=== PATIENT | female | born 1985 | race Caucasian/White ===

== ENCOUNTER 2022-08-26 18:58 | Emergency (ER) | payer BC ==
--- OUTSIDE RECORDS SUMMARY | 2022-08-26 19:03 | XMS REPORT | Continuity of Care Document ---
:1985 Author Organization Formerly [facility] t Address [address] [place] [address] Care Team Providers Name Role Phone PCP, PATIENT DOES NOT HAVE A Primary Care Physician UnavailMOY Garcia Attending Clinician Unavailable MOY SAVAEG Attending Clinician Unavailable TRE HINOJOSA Attending Clinician Unavailable Tre Davis Attending Clinician Doctor Unassigned, [place] Attending Clinician Unavailable Payers Payer Name Policy Type Policy Number Effective Date Ex[facility] Date [id number] 00:00:00 OUT OF STATE Problems Condition Condition Condition Status Onset Resolution Last Treating Co mments Source Name Details Category Date Date Treatment Clinician Date Acute Acute Disease Active Univers postoperat postoperat 7-03 it y of carina carina 00:00: [place] abdominal abdominal 00 Medi yusef pain pain Branch Migraines Migraines Disease Active Uni vers 2-21 ity of 00:00: [place] 00 Medical Branch Tobacco Tobacco Disease Active Univers use use 2-21 ity of disorder disorder 00:00: [place] [facility] Allergies, Adverse Reactions, Alerts Allergy Allergy Status Severity Reaction(s) Onset Inactive Treating Comm ents Source Name Type Date Date Clinician Penicill Propensi Active Itching Unive rs ins ty to 2-21 ity of adverse 00:00: [place] reaction 00 Medical s Branch PENICILL Drug Active ITCHING Univers INS Class 2-21 ity of 00:00: [place] 00 Medical Branch Social History Social Habit Start Date Stop Date Quantity Comments [facility] [place] [facility] Exposure to Not sure University of SARS-CoV-2 [facility] (event) Branch History of Cigarette Smoker Universi ty of tobacco use [facility] [place] [facility] Cigarettes smoked 2018-07-01 2018-07-01 Univers ity of current (pack per 00:00:00 00:00:00 [facility] ) - Reported Branch Cigarette 2018-07-01 2018-07-01 University of pack-years 00:00:00 00:00:00 [facility] [place] [facility] Tobacco use and 2018-07-01 2018-07-01 Never used Universit y of exposure 00:00:00 00:00:00 [facility] [place] [facility] Alcohol intake 2018-07-01 2018-07-01 Current drinker of Un iversity of 00:00:00 00:00:00 alcohol (finding) [facility] Alcohol Comment 2013-10-30 2013-10-30 occasionally Univers ity of 00:00:00 00:00:00 [facility] [place] [facility] Smoking Status Start Date Stop Date Source Current every day smoker 2018-07-01 00:00:00 Uni versity of [facility] [place] [facility] Medications Ordered Filled Start Stop Current Ordering Indication Dosage Frequency Signature Comments Components Source Medication Medication Date Date Medication? Clinician (SIG) Name Name ibuprofen 2017-09 Yes 600mg Take 1 Unive rs 600 mg 0-17 tablet by ity of tablet 00:00: mouth [place] 00 every 6 Medical (six) Branch hours as needed for Pain (scale 4-6). ibuprofen 2017-09 Yes 600mg Take 1 Unive rs 600 mg 0-17 tablet by ity of tablet 00:00: mouth [place] 00 every 6 Medical (six) Branch hours as needed for Pain (scale 4-6). ibuprofen 2017-09 Yes 600mg Take 1 Unive rs 600 mg 0-17 tablet by ity of tablet 00:00: mouth [place] 00 every 6 Medical (six) Branch hours as needed for Pain (scale 4-6). ibuprofen 2017-09 Yes 600mg Take 1 Unive rs 600 mg 0-17 tablet by ity of tablet 00:00: mouth [place] 00 every 6 Medical (six) Branch hours as needed for Pain (scale 4-6). ibuprofen 2017-09 Yes 600mg Take 1 Unive rs 600 mg 0-17 tablet by ity of tablet 00:00: mouth [place] 00 every 6 Medical (six) Branch hours as needed for Pain (scale 4-6). Immunizations Ordered Filled Immunization Date Status Comments Sour e Immunization Name Name Td 2012-10-10 Completed University of 00:00:00 [facility] Td 2012-10-10 Completed University of 00:00:00 [facility] Branch Td 2012-10-10 Completed University of 00:00:00 [facility] Branch Td 2012-10-10 Completed University of 00:00:00 [facility] [place] [facility] Td 2012-10-10 Completed University 00:00:00 [facility] [place] [facility] Vital Signs Vital Name Observation Time Observation Value Comments Source Systolic blood 2020-06-06 20:49:00 120 mm[Hg] Univer sity [facility] Diastolic blood 2020-06-06 20:49:00 85 [facility]Hg[facility] 2020-06-06 20:49:00 86 /min [facility] Procedures Procedure Date / Time Performing Clinician Source Performed XR HAND <3 VW RIGHT 2020-06-06 20:55:12 Tre Hinojosa [facility] ASSIGNMENT OF BENEFITS 2020-06-06 20:30:19 Doctor Unassigned, No [facility] DME/SUPPLY JUSTIFICATION 2020-05-29 05:01:00 Doctor Unassigned, No [facility] Encounters Start End Encounter Admission Attending Care Care Encounter Source Date/Time Date/Time Type Type Clinicians Facility Department ID 2022-08-23 2022-08-23 Outpatient R MOY SAVAGE [facility] B [id number] Univers 13:30:00 13:30:00 MOY SAVAGE [facility] 2022-08-08 2022-08-08 Outpatient R MOY SAVAGE [facility] B [id number] Univers 15:30:00 15:30:[facility] 2020-06-13 2020-06-13 Outpatient R MICAELA MOMADHAV [facility] [id number] Univers 16:15:00 16:15:00 TRE segal [facility] 2020-06-06 2020-06-06 [facility] RANDI Hinojosa [id number] Univers 15:55:12 23:59:00 Encounter Tre Bundy [facility] [id number] ity of Surgical [id number] Robert as Specialti [id number] Me dical es 809 [facility] 2020-06-06 2020-06-06 Outpatient R MICAELA [facility] [id number] Univers 16:00:00 16:00:00 TRE ity of [facility] [place] [facility] 2020-06-06 2020-06-06 Office Micaela [facility] [id number] Univers 15:34:00 15:49:00 Visit Tre [facility] [id number] it y of Surgical [id number] Robert as Specialti [id number] Me dical es 198 [facility] 2020-06-06 2020-06-06 Orders Doctor SANDEE [id number] Univers 00:00:00 00:00:00 Only Unassigned, LONNIE [id number] ity of [place] [facility] [id number] Robert as [id number] [address] 2020-05-29 2020-05-29 Orders Doctor SANDEE [id number] Univers 00:00:00 00:00:00 Only Unassigned, LONNIE [id number] ity of [place] [facility] [id number] Robert as [phone] [address] Results Test Description Test Time Test Comments Results Result [facility] e Comments XR HAND <3 VW 2020-06-06 No sign of University of RIGHT 21:43:26 fracture or [facility] dislocation [place] joint space is well-maintained
[2022-08-26] MEDS ORDERED: NA CHLORIDE 0.9% 1,000 ML ONE (19:26)
[2022-08-26] MEDS ORDERED: ONDANSETRON 4 MG/2 ML VIAL ONE (19:26)
[2022-08-26] MEDS ORDERED: MORPHINE 4 MG/ML SYR ONE ×2 (19:26→20:49)
[2022-08-26 19:51] LABS: Urine Blood Trace-intact (Negative); Urine Glucose Negative (Negative); Urine Protein Trace (Negative)
[2022-08-26 19:55] LABS: Absolute Lymphocytes (CBC) 5.9 K/uL (0.7-4.9); Hematocrit 41.3 % (36.0-45.0); Lymphocytes % 39.8 % (15.3-44.8); MCV 89.7 fL (80-100); MPV 7.6 fL (7.6-11.3); RBC Red Blood Cell Count 4.61 M/uL (3.86-4.86)
--- NOTE | 2022-08-26 20:24 | RAD REPORT ---
EXAM DESCRIPTION: US - Transvaginal Study Probe - 08/26/2022 8:03 pm CLINICAL HISTORY: r/o torsion COMPARISON: No comparisons TECHNIQUE: Endovaginal sonography was performed. FINDINGS: Uterus is normal size. No myometrial mass. No blood or fluid in the cul de sac. Endometriu m-myometrium interface is preserved. No focal endometrial mass polyp seen. Endometrial thickness is 5 -6 mm. Both ovaries are identified. Partially involuted left ovarian cyst is present 2.7 cm in size. A small 1.3 centimeter right ovarian cyst is seen. Doppler evaluation shows normal blood flow within the ova talita stroma. No adnexal masses are seen. IMPRESSION: Small ovarian cysts are present, largest partially involuted on the right measuring 2.7 cm. No adnexal abnormalities. Uterine abnormality.
--- NOTE | 2022-08-26 21:47 | RAD REPORT ---
EXAM DESCRIPTION: CT - Abdomen Pelvis W Contrast - 08/26/2022 9:18 pm CLINICAL HISTORY: abd pain COMPARISON: Abdomen Pelvis W Contrast dated 07/08/2017; Transvaginal Study Probe dated 08/26/2022 TECHNIQUE: Biphasic, helical CT imaging of the abdomen and pelvis was performed following 100 ml non -ionic IV contrast. Oral contrast: No. All CT scans are performed using dose optimization technique as appropriate and may include automated exposure control or mA/KV adjustment according to patient size. FINDINGS: No suspicious findings in the lung bases. The liver, spleen, and pancreas show no suspicious findings. Cholecystectomy clips are present. No ab normal biliary tree dilatation. Symmetric renal function is seen with no hydronephrosis or suspicious renal mass. No pyelonephritis o r acute parenchymal process. No bladder abnormalities. No adrenal abnormalities. No uterine abnormality. Bilateral ovarian cysts are present some of which are partially involuted. No free fluid is present. No ovarian rupture seen. No dilated bowel loops or bowel wall thickening. No appendicitis. No acute GI process identifiable. N o free air, free fluid or inflammatory stranding. No hernia, mass or bulky lymphadenopathy. No suspicious bony findings. IMPRESSION: Contrast enhanced CT abdomen and pelvis showing no acute or emergent finding. Small ovarian cysts are present some of which are partially involuted. No ruptured or hemorrhagic cys t findings.
[2022-08-26] MEDS ORDERED: KETOROLAC 30 MG/ML INJ ONE (22:58)
--- NOTE | 2022-08-27 00:31 | ER ---
Nurse's Notes [facility] Name: Maria Del Carmen Stokes Age: 36 yrs Sex: Female : 1985 Arrival Date: 08/26/2022 Time: 19:00 Bed 18 Private MD: Diagnosis: Lower abdominal pain, unspecified Presentation: 08/26 19:01 Chief complaint: Severe LLQ pain x 20 minutes. Coronavirus screen: At this time, the client does not indicate any symptoms associated with coronavirus-19. Ebola Screen: No symptoms or risks identified at this time. Initial Sepsis Screen: Does the patient meet any 2 criteria? No. Patient's initial sepsis screen is negative. Does the patient have a suspected source of infection? No. Patient's initial sepsis screen is negative. Risk Assessment: Do you want to hurt yourself or someone else? Patient reports no desire to harm self or others. Onset of symptoms was August 26, 2022. 19:01 Method Of Arrival: Wheelchair 19:01 Acuity: WILLIS 3 hb Historical: - Allergies: 19:04 PENICILLINS; hb - PMHx: 19:02 ADD/ADHD; hb - PSHx: 19:03 Cholecystectomy; hb - Immunization history:: Adult Immunizations up to date, Client reports having NOT received the Covid vaccine. - Social history:: Smoking status: Patient reports the use of cigarette tobacco products, smokes one-half pack cigarettes per day. Screenin:00 [facility] ED Fall Risk Assessment (Adult) History of falling in the last 3 months, kb3 including since admission No falls in past 3 months (0 pts) Confusion or Disorientation No (0 pts) Intoxicated or Sedated No (0 pts) Impaired Gait No (0 pts) Mobility Assist Device Used No (0 pt) Altered Elimination No (0 pt) Score/Fall Risk Level 0 - 2 = Low Risk Oriented to surroundings, Maintained a safe environment, Educated pt \T\ family on fall prevention, incl call for assistance when getting out of bed, Assessed \T\ reinforced patient's understanding of fall precautions. Abuse screen: Denies threats or abuse. Denies injuries from another. Nutritional screening: No deficits noted. Tuberculosis screening: No symptoms or risk factors identified. Assessment: 19:00 General: Appears distressed, uncomfortable, Behavior is cooperative, anxious, crying, kb3 Pt reports LLQ pain that began just prior to arrival. Reports history of ovarian cysts and has been unable to follow up with gynecology for further evaluation and treatment. PT denies N/V. 19:00 Pain: Complains of pain in suprapubic area and left inguinal area Pain does not kb3 radiate. Pain currently is 10 out of 10 on a pain scale. Quality of pain is described as sharp, stabbing. : Denies burning with urination, inability to void, urinary frequency, urgency. 22:30 Reassessment: Patient appears in no apparent distress at this time. No changes from kb3 previously documented assessment. Patient and/or family updated on plan of care and expected duration. Pain level reassessed. General: Updated pt regarding continued delay of lab results due to a machine malfunction in lab. Pt states understanding of all discussed. 08/27 00:48 Reassessment: Patient appears in no apparent distress at this time. Patient and/or jb4 family updated on plan of care and expected duration. Pain level reassessed. Patient is alert, oriented x 3, equal unlabored respirations, skin warm/dry/pink. Patient states feeling better. Patient states symptoms have improved. Vital Signs: 08/26 19:01 BP 130 / 105; Pulse 93; Resp 16; Temp 97.2(TE); Pulse Ox 100% on R/A; Weight 66.68 kg; hb Height 5 ft. 1 in. (154.94 cm); Pain 10/10; 21:30 BP 107 / 72; Pulse 93; Resp 16; Temp 97.3; Pulse Ox 100% ; Weight 66.22 kg; Height 5 zm ft. 1 in. (154.94 cm); 21:30 Body Mass Index 27.59 (66.22 kg, 154.94 cm) ED Course: 19:00 Patient arrived in ED. rg4 19:00 Patient has correct armband on for positive identification. Placed in gown. Bed in low kb3 position. Call light in reach. Side rails up X 1. Adult w/ patient. Warm blanket given. 19:00 No provider procedures requiring assistance completed. kb3 19:01 [facility]iff Mesa [facility]C [facility] kb 19:01 Brianna Hernandez MD is Attending Physician. kb 19:02 Arm band placed on. hb 19:03 Triage completed. hb 19:17 Marley Dial, RN is Primary Nurse. kb3 19:30 Inserted saline lock: 22 gauge in right antecubital area, using aseptic technique. kb3 Blood collected. 20:05 US Transvaginal Study (Probe) In Process Unspecified. EDMS 21:[address] kb3 21:19 CT Abd/Pelvis - IV Contrast Only In Process Unspecified. EDMS Administered Medications: 19:40 Drug: NS 0.9% 1000 ml Route: IV; Rate: 1000 ml; Site: right antecubital; kb3 21:00 Follow up: Response: No adverse reaction; IV Status: Completed infusion; IV Intake: kb3 1000ml 19:40 Drug: Zofran (Ondansetron) 4 mg Route: IVP; Site: right antecubital; kb3 20:15 Follow up: Response: No adverse reaction kb3 19:40 Drug: morphine 4 mg Route: IVP; Infused Over: 4 mins; Site: right antecubital; kb3 20:15 Follow up: Response: No adverse reaction; Pain is decreased kb3 20:52 Drug: morphine 4 mg Route: IVP; Infused Over: 4 mins; Site: right antecubital; kb3 21:30 Follow up: Response: No adverse reaction; Pain is decreased kb3 22:59 Drug: Ketorolac 15 mg Route: IVP; Site: right antecubital; kb3 08/27 00:11 Follow up: Response: No adverse reaction; Pain is decreased kb3 Medication: 08/26 19:00 VIS not applicable for this client. kb3 Intake: 21:00 IV: 1000ml; Total: 1000ml. kb3 Outcome: 08/27 00:31 Discharge ordered by . kb 00:48 Discharged to home ambulatory, with family. jb4 00:48 Condition: stable 00:48 Discharge instructions given to patient, Instructed on discharge instructions, follow up and referral plans. Demonstrated understanding of instructions, follow-up care. 00:48 Patient left the ED. jb4 Signatures: Dispatcher [employer] EDMS Tiff Mesa, EDINSON VALENTINO-Cristina Wesley RN RN Ronel Davison 4 José Miguel Wakefield RN RN jb4 Dara Zavala Kelly, RN RN kb3 Corrections: (The following items were deleted from the chart) 08/26 19:04 19:03 Allergies: No Known Allergies; hb hb 19:04 19:01 66.68 kg; Height 5 ft. 1 in.; BMI: 27.7; Pain 10/10; hb hb 19:05 19:01 Pulse Ox 100% RA; 66.68 kg; Height 5 ft. 1 in.; BMI: 27.7; Pain 10/10; hb hb 21:19 21:16 General: Appears distressed, uncomfortable, Behavior is cooperative, anxious, kb3 crying, Pt reports LLQ pain that began just prior to arrival. Reports history of ovarian cysts and has been unable to follow up with gynecology for further evaluation and treatment. PT denies N/V. kb3 21:20 19:00 morphine 4 mg IVP in right antecubital over 4 mins kb3 kb3
--- NOTE | 2022-08-27 00:31 | EDPHYS ---
Physician Documentation [facility] Name: Maria Del Carmen Stokes Age: 36 yrs Sex: Female : 1985 Arrival Date: 08/26/2022 Time: 19:00 Bed 18 Private MD: ED Physician Brianna Hernandez HPI: 08/26 19:06 This 36 yrs old Female presents to ER via Wheelchair with complaints of Low Abd Pain. kb 19:06 The patient presents with abdominal pain in the left lower quadrant. Onset: The kb symptoms/episode began/occurred just prior to arrival. The symptoms do not radiate. Associated signs and symptoms: none. The symptoms are described as constant, sharp. Modifying factors: The symptoms are alleviated by nothing, the symptoms are aggravated by movement, pressure. Severity of pain: At its worst the pain was severe in the emergency department the pain is unchanged. The patient has experienced a previous episode. The patient has not recently seen a physician. Historical: - Allergies: 19:04 PENICILLINS; hb - PMHx: 19:02 ADD/ADHD; hb - PSHx: 19:03 Cholecystectomy; hb - Immunization history:: Adult Immunizations up to date, Client reports having NOT received the Covid vaccine. - Social history:: Smoking status: Patient reports the use of cigarette tobacco products, smokes one-half pack cigarettes per day. ROS: 19:04 Constitutional: Negative for fever, chills, and weight loss. kb 19:04 Abdomen/GI: Positive for abdominal pain. 19:04 All other systems are negative. Exam: 19:04 Head/Face: Normocephalic, atraumatic. ENT: Moist Mucous membranes Cardiovascular: kb Regular rate and rhythm with a normal S1 and S2. No gallops, murmurs, or rubs. No pulse deficits. Respiratory: Respirations even and unlabored. No increased work of breathing. Talking in full sentences Skin: Warm, dry with normal turgor. Normal color. MS/ Extremity: Pulses equal, no cyanosis. Neurovascular intact. Full, normal range of motion. Neuro: Awake and alert, GCS 15, oriented to person, place, time, and situation. Moves all extremities. Normal gait. Psych: Awake, alert, with orientation to person, place and time. Behavior, mood, and affect are within normal limits. 19:04 Constitutional: The patient appears alert, awake, in obvious pain. Vital Signs: 19:01 BP 130 / 105; Pulse 93; Resp 16; Temp 97.2(TE); Pulse Ox 100% on R/A; Weight 66.68 kg; hb Height 5 ft. 1 in. (154.94 cm); Pain 10/10; 21:30 BP 107 / 72; Pulse 93; Resp 16; Temp 97.3; Pulse Ox 100% ; Weight 66.22 kg; Height 5 zm ft. 1 in. (154.94 cm); 21:30 Body Mass Index 27.59 (66.22 kg, 154.94 cm) zm MDM: 19:04 Patient medically screened. kb 19:04 Data reviewed: vital signs, nurses notes. Data interpreted: Pulse oximetry: on room air kb is 100 %. Interpretation: normal. 08/27 00:30 Counseling: I had a detailed discussion with the patient and/or guardian regarding: the kb historical points, exam findings, and any diagnostic results supporting the discharge/admit diagnosis, lab results, radiology results, the need for outpatient follow up, a family practitioner, to return to the emergency department if symptoms worsen or persist or if there are any questions or concerns that arise at home. 00:31 Response to treatment: the patient's symptoms have resolved after treatment. kb 08/26 19:06 Order name: CBC with Diff; Complete Time: 20:06 kb 08/26 19:06 Order name: CMP kb 08/26 19:06 Order name: Lipase kb 08/26 19:51 Order name: Urine Dipstick-Ancillary; Complete Time: 20:06 EDAR 08/26 19:52 Order name: Urine --Ancillary (enter results); Complete Time: 20:45 ds4 08/26 23:08 Order name: CREATININE WHOLE BLOOD; Complete Time: 23:13 EDMS 08/26 19:06 Order name: IV Saline Lock; Complete Time: 19:44 kb 08/26 19:06 Order name: US Transvaginal Study (Probe); Complete Time: 20:28 kb 08/26 20:13 Order name: CT Abd/Pelvis - IV Contrast Only; Complete Time: 21:56 kb 08/26 19:06 Order name: Labs collected and sent; Complete Time: 19:44 kb 08/26 19:06 Order name: Urine Dipstick-Ancillary (obtain specimen); Complete Time: 19:52 kb 08/26 19:06 Order name: Urine Test (obtain specimen); Complete Time: 19:52 kb Administered Medications: 08/26 19:40 Drug: NS 0.9% 1000 ml Route: IV; Rate: 1000 ml; Site: right antecubital; kb3 21:00 Follow up: Response: No adverse reaction; IV Status: Completed infusion; IV Intake: kb3 1000ml 19:40 Drug: Zofran (Ondansetron) 4 mg Route: IVP; Site: right antecubital; kb3 20:15 Follow up: Response: No adverse reaction kb3 19:40 Drug: morphine 4 mg Route: IVP; Infused Over: 4 mins; Site: right antecubital; kb3 20:15 Follow up: Response: No adverse reaction; Pain is decreased kb3 20:52 Drug: morphine 4 mg Route: IVP; Infused Over: 4 mins; Site: right antecubital; kb3 21:30 Follow up: Response: No adverse reaction; Pain is decreased kb3 22:59 Drug: Ketorolac 15 mg Route: IVP; Site: right antecubital; kb3 08/27 00:11 Follow up: Response: No adverse reaction; Pain is decreased kb3 Disposition Summary: 08/27/22 00:31 Discharge Ordered Location: Home kb Condition: Stable kb Diagnosis - Lower abdominal pain, unspecified kb Followup: kb - With: Emergency Department - When: As needed - Reason: Worsening of condition Followup: kb - With: Private Physician - When: 2 - 3 days - Reason: Recheck today's complaints, Continuance of care, Re-evaluation by your physician Discharge Instructions: - Discharge Summary Sheet kb - Pelvic Pain, Female, [id number] kb - Abdominal Pain, Adult, [id number] kb - Ovarian Cyst, [id number] kb Forms: - Medication Reconciliation Form kb - Thank You Letter kb - Antibiotic Education kb - Prescription Opioid Use kb Signatures: Dispatcher [employer] Tiff Bartlett, EDINSON VALENTINO-Cristina Wesley RN RN Marley Ibrahim RN RN kb3 Corrections: (The following items were deleted from the chart) 08/26 19:04 19:03 Allergies: No Known Allergies; hb hb
[2022-08-27 01:00] VITALS: O2SAT 100
[2022-08-27 01:06] VITALS: BP 107/72; TEMP 97.3
[2022-08-27 04:38] LABS: Potassium 3.7 mmol/L (3.5-5.1)
[2022-08-27 04:39] LABS: Bilirubin Total 0.3 mg/dL (0.2-1.0)
[2022-08-27 04:40] LABS: Albumin 4.2 g/dL (3.4-5.0)
== END 2022-08-27 00:48 | disposition home or self-care (01) ==
LOC: ER 18:58
DX: R10.32 Left lower quadrant pain (principal); F17.210 Nicotine dependence, cigarettes, uncomplicated; Z88.0 Allergy status to penicillin
CPT/HCPCS: 85025; 36415; 81025; 82565; 81003; 83690; 80053; 74177; 76830; Q9967; J7030; J2405

== ENCOUNTER 2023-09-23 23:46 | Observation (INO) | payer BC, OTHER ==
--- OUTSIDE RECORDS SUMMARY | 2023-09-23 23:49 | XMS REPORT | Continuity of Care Document ---
Author Name Unknown Address [address] [place] [address] [facility] thconnect Address [address] [place] [address] Care Team Providers Care Conduit Cleaner Name Role Phone PCP, PATIENT DOES NOT HAVE A Primary Care Physic abbi Unavailable Ashley Rodriguez Attending Clinician Unavaila ble GC_GCBZW_Kadiyala_S Attending Clinician Unavaila MOY Hampton Attending Clinician Unavaila MOY Hampton Attending Clinician Unavaila GAYLE Vicente Attending Clinician Gayle Torres Attending Clinician [phone] Doctor Unassigned, [place] Attending Clinician U navailable Ashley Rodriguez Admitting Clinician Unavaila ble GC_GCBZW_Kadisonyaa_S Admitting Clinician Unavaila ble Payers Payer Name Policy Type Policy Number Effective Date Expirati on Date Source [place] [id number] 2019 00:00:00 [facility] [id number] 2022 00:00:00 2023 00:00:00 [place] OUT [place] [id number] 2008 00:00:00 Problems Condition Name Condition Details Condition Category Status Onset Date Resolution Date Last Treatment Date Treating Clinician Comments Source Acute postoperat carina abdominal pain Acute postoperat carina abdominal pain Disease Active 7- 00:00: 00 [facility] Migraines Migraines Disease Active 10-30 00:00: 00 [facility] Tobacco use disorder Tobacco use disorder Disease Active 10-30 00:00: 00 [facility] Allergies, Adverse Reactions, Alerts Allergy Name Allergy Type Status Severity Reaction(s) Onset Date Inactive Date Treating Clinician Comments Source codeine DA Active MO VOMITING 09-20 00:00: 00 [facility] [place] acetamin ophen DA Active MO VOMITING 09-20 00:00: 00 [facility] [place] tramadol DA Active MO VOMITING 09-20 00:00: 00 [facility] [place] levoflox acin DA Active MO VOMITING 09-20 00:00: 00 [facility] [place] Penicill ins DA Active SV HIVES 09-20 00:00: 00 [facility] [place] Penicill ins Propensi ty to adverse reaction s Active Itching 10-30 00:00: 00 [facility] PENICILL INS Drug Class Active ITCHING 10-30 00:00: 00 [facility] Social History Social Habit Start Date Stop Date Quantity Comments Source Sex Assigned At [facility] Exposure to SARS-CoV-2 (event) Not sure [facility] History of tobacco use Cigarette Smoker [facility] Cigarettes smoked current (pack per day) - Reported 2018-07-01 00:00:00 2018-07-01 00:00:00 [facility] Cigarette pack-years 2018-07-01 00:00:00 2018-07-01 00:00:00 [facility] Tobacco use and exposure 2018-07-01 00:00:00 2018-07-01 00:00:00 Never used [facility] Alcohol intake 2018-07-01 00:00:00 2018-07-01 00:00:00 Current drinker of alcohol (finding) [facility] Alcohol Comment 2013-10-30 00:00:00 2013-10-30 00:00:00 occasionally [facility] Smoking Status Start Date Stop Date Source Current every day smoker 2018-07-01 00:00:00 [facility] Medications Ordered Medication Name Filled Medication Name Start Date Stop Date Current Medication? Ordering Clinician Indication Dosage Frequency Signature (SIG) Comments Components Source ibuprofen 600 mg tablet 2017-09 00:00: 00 Yes 600mg Take 1 tablet by mouth every 6 (six) hours as needed for Pain (scale 4-6). [facility] ibuprofen 600 mg tablet 2017-09 00:00: 00 Yes 600mg Take 1 tablet by mouth every 6 (six) hours as needed for Pain (scale 4-6). [facility] ibuprofen 600 mg tablet 2017-09 00:00: 00 Yes 600mg Take 1 tablet by mouth every 6 (six) hours as needed for Pain (scale 4-6). [facility] ibuprofen 600 mg tablet 2017-09 00:00: 00 Yes 600mg Take 1 tablet by mouth every 6 (six) hours as needed for Pain (scale 4-6). [facility] ibuprofen 600 mg tablet 2017-09 00:00: 00 Yes 600mg Take 1 tablet by mouth every 6 (six) hours as needed for Pain (scale 4-6). [facility] Vital Signs Vital Name Observation Time Observation Value Comments S ource Systolic blood pressure 2020-06-06 20:49:00 120 [facility] Diastolic blood pressure 2020-06-06 20:49:00 85 mm[Hg[facility] Heart rate 2020-06-06 20:49:00 86 /min [facility] Procedures Procedure Date / Time Performed Performing Clinician Source XR HAND <3 VW RIGHT 2020-06-06 20:55:12 Gayle Hinojosa [facility] ASSIGNMENT OF BENEFITS 2020-06-06 20:30:19 Docto r Unassigned, [place] [facility] DME/SUPPLY JUSTIFICATION 2020-05-29 05:01:00 Doc tor Unassigned, [place] [facility] Encounters Start Date/Time End Date/Time Encounter Type Admission Type Attending [facility] Care Department Encounter ID Source 2023-09-23 12:27:00 2023-09-23 12:27:00 Outpatient Ashley Blevins [facility]ID [id number] 28 [facility] [place] 2023-09-20 00:00:00 2023-09-20 00:00:00 Outpatient GC_GCBZW_Ka diyala_S PRIV PRIV [id number] [facility] 2023-09-17 00:00:00 2023-09-17 00:00:00 Outpatient GC_GCBZW_Ka diyala_S PRIV PRIV [id number] [facility] 2023-09-13 00:00:00 2023-09-13 00:00:00 Outpatient GC_GCBZW_Ka diyala_S PRIV PRIV [id number] [facility] 2023-08-27 00:00:00 2023-08-27 00:00:00 Outpatient GC_GCBZW_Ka diyala_S PRIV PRIV [id number] [facility] 2023-08-09 00:00:00 2023-08-09 00:00:00 Outpatient GC_GCBZW_Ka diyala_S PRIV PRIV [id number] [facility] 2023-08-09 00:00:00 2023-08-09 00:00:00 Outpatient GC_GCBZW_Ka diyala_S PRIV PRIV [id number] [facility] 2023-06-19 00:00:00 2023-06-19 00:00:00 Outpatient GC_GCBZW_Ka diyala_S PRIV PRIV [id number] [facility] 2023-06-19 00:00:00 2023-06-19 00:00:00 Outpatient GC_GCBZW_Ka diyala_S PRIV PRIV [id number] [facility] 2023-06-19 00:00:00 2023-06-19 00:00:00 Outpatient GC_GCBZW_Ka diyala_S PRIV PRIV [id number] [facility] 2023-06-19 00:00:00 2023-06-19 00:00:00 Outpatient GC_GCBZW_Ka diyala_S PRIV PRIV [id number] [facility] 2023-06-18 00:00:00 2023-06-18 00:00:00 Outpatient GC_GCBZW_Ka diyala_S PRIV PRIV [id number] [facility] 2023-06-04 00:00:00 2023-06-04 00:00:00 Outpatient GC_GCBZW_Ka diyala_S PRIV PRIV [id number] [facility] 2022-08-23 13:30:00 2022-08-23 13:30:00 Outpatient R MOY SAVAGE CHERYAL [facility] [id number] [facility] 2022-08-08 15:30:00 2022-08-08 15:30:00 Outpatient R MOY SAVAGE CHERYAL [facility] [id number] [facility] 2020-06-13 16:15:00 2020-06-13 16:15:00 Outpatient R GAYLE HINOJOSA [facility] [id number] [facility] 2020-06-06 15:55:12 2020-06-06 23:59:00 Hospital [facility] [id number] [facility] 2020-06-06 16:00:00 2020-06-06 16:00:00 Outpatient R [facility] [id number] [facility] 2020-06-06 15:34:00 2020-06-06 15:49:00 [facility] [id number] [facility] 2020-06-06 00:00:00 2020-06-06 00:00:00 Orders Only Doctor Unassigned, [place] [facility] [id number] [facility] 2020-05-29 00:00:00 2020-05-29 00:00:00 Orders Only Doctor Unassigned, [place] [facility] [id number] [facility] Results Test Description Test Time Test Comments Results Result Co mments Source BASIC METABOLIC [id number] 12:19:00* Test Item Value Reference Range Interpretation Comme nts SODIUM (test code = NA) 138 mmol/L 134-147 N POTASSIUM (test code = K) 3.7 mmol/L 3.4-5.0 N CHLORIDE (test code = CL) 108 mmol/L 100-108 N CARBON DIOXIDE (test code = CO2) 24 mmol/L 21-32 N ANION GAP (test code = GAP) 6.0 GAP calc 4.0-15.0 N GLUCOSE (test code = GLU) 84 MG/DL 70-110 N BLOOD UREA NITROGEN (test code = BUN) 13 MG/DL 7-18 N GLOMERULAR FILTRATION RATE (test code = GFR) >=60 max estimate estGFR >60 The Glomerular Filtration Rate is a calculated parameterbased on serum Creatinine, patient age and sex. GFR valuesless than 60 mL/min/1.73 square meters are indicative ofChronic Kidney Disease. Values less than 15 mL/min/1.73square meters indicate Kidney failure. The calculation forGFR is based on the CKD-EPI (2020) calculation. This formulais race indifferent and is the recommended formula for GFRby the National Kidney Foundation for Adults.The GFR will not calculate if the sex is unknown or if thepatient's age is <18 years. CREATININE (test code = CREAT) 0.8 MG/DL 0.6-1.0 N CALCIUM (test code = CA) 9.7 MG/DL 8.5-10.1 N CBC W/AUTO [id number] 12:06:00* Test Item Value Reference Range Interpretation Comme nts WHITE BLOOD CELL (test code = WBC) 11.8 K/mm3 3.5-11.0 H RED BLOOD CELL (test code = RBC) 5.35 M/mm3 4.70-6.10 N HEMOGLOBIN (test code = HGB) 16.3 G/DL 10.4-14.9 H HEMATOCRIT (test code = HCT) 47.6 % 31.5-44.1 H MEAN CELL VOLUME (test code = MCV) 89.0 Fl 84.5-98.6 N MEAN CELL HGB (test code = MCH) 30.5 pg 27.0-34.2 N MEAN CELL HGB CONCETRATION (test code = MCHC) 34.2 G/DL 31.5-34.0 H RED CELL DISTRIBUTION WIDTH (test code = RDW) 12.5 SD 11.5-14.5 N PLATELET COUNT (test code = PLT) 525 K/mm3 150-450 H MEAN PLATELET VOLUME (test c ode = MPV) 9.70 fL 7.0-10.5 N NEUTROPHIL % (test code = NT%) 61.4 % 40-76 N IMMATURE GRANULOCYTE % (test code = IG%) 0.3 % 0.0-5.0 N LYMPHOCYTE % (test code = LY%) 29.6 % 20.5-51.1 N MONOCYTE % (test code = MO%) 7.9 % 1.7-9.3 N EOSINOPHIL % (test code = EO%) 0.3 % 0.0-6.0 N BASOPHIL % (test code = BA%) 0.5 % 0.0-2.0 N NUCLEATED RBC % (test code = NRBC%) 0.0 /100WBC% 0.0-1.0 N NEUTROPHIL # (test code = NT#) 7.3 K/mm3 1.8-7.6 N IMMATURE GRANULOCYTE # (test code = IG#) 0.03 x10 3/uL 0.00-0.03 N LYMPHOCYTE # (test code = LY#) 3.5 K/mm3 0.6-3.2 H MONOCYTE # (test code = MO#) 0.9 K/mm3 0.3-1.1 N EOSINOPHIL # (test code = EO#) 0.0 K/mm3 0.0-0.4 N BASOPHIL # (test code = BA#) 0.1 K/mm3 0.0-0.1 N NUCLEATED RBC # (test code = NRBC#) 0.0 K/mm3 0.0-0.1 N URINALYSIS [id number] 12:00:00* Test Item Value Reference Range Interpretation Comme nts UA GLUCOSE DIPSTICK (test code = DGLUU) NEGATIVE mg/dL NEG UA BILIRUBIN DIPSTICK (test code = BILU) NEGATIVE mg/dL NEG UA KETONE DIPSTICK (test code = KETU) NEGATIVE mg/dL NEG UA SPECIFIC GRAVITY (test code = SGU) 1.010 SG 1.005-1.030 UA BLOOD DIPSTICK (test code = HALIMA) NEGATIVE mg/DL NEG UA PH DIPSTICK (test code = TANYA) 5.5 pH UNITS 5.0-7.0 UA PROTEIN DIPSTICK (test code = PROU) NEGATIVE mg/dL NEG UA UROBILINIOGEN DIPSTICK (test code = URO) 0.2 mg/dL <2.0 UA NITRITE DIPSTICK (test code = KVNG) NEGATIVE SCREEN NEG UA LEUKOCYTE ESTERASE DIPSTICK (test code = LEUU) NEGATIVE Leuk/mcL NEGATIVE Urine Specimen Type: Clean CatchUR HCG [id number] 12:00:00* Test Item Value Reference Range Interpretation Comme nts UR HCG QUAL (test code = HCGQLU) NEGATIVE NEGATIVE Urine Specimen Type: Clean CatchXR HAND <3 VW [id number] 21:43:26No sign of fracture or dislocation [facility] Notes Date/Time Note Provider Source 2023-09-23 18:56:00 [id number]:56:00 [facility] ([facility])Brief Op NoteREPORT#:[id number] REPORT STATUS: SignedREPORT INITIALIZATION DATE:09/23/23 TIME:1855 PATIENT: JOSE RUIZ UNIT #: [id number]#: [id number] ROOM/BED:: [birth year] AGE: 37 SEX: F ATTEND: Ashley Rodriguez MDADM AUTHOR: Ashley Rodriguez MDREPT SERVICE DT/TIME: 09/23/23 4075* ALL edits or amendments must be made on the electronic/computer document * Op/Inv Proc Note - BriefPre-procedure diagnosis:pelviuc pain left complex ovarian cystPost-procedure diagnosis: pelvic pain, stage 4 endometriosis, adhesions to the ventral hernia meshProcedures performed:diagnostic laaproscopy, extensive lysis of adhesions, Robotic TLH bilateral salpingectomy, left oophorectomy adn endometrioma excision, endometriosis excision, cystoscopyPrimary Surgeon:Marivelt(s): joe Silvaesthesia: general anesthesiaFindings:left ovarian endometrioma, left adhered to left posterior broad lig, lateral wall, ureter, USL, endo on right USL tiny spot ablated, nodular endo from left excised, right ovary normal, cuff closed in two layers with 2-0 v lock, anterio ventral hernia mesh repair with dense adhesions that had to be taken down beforerobotic ports could be placed, both UOs were patent, no traumaComplications: noneEstimated blood loss in ml's: 75Specimens removed/altered: uterus and both tubes and left ovary, left USL endoFluids:1000Urine output:150Approach: laparoscopic, roboticWound class: clean/contaminatedDisposition: plan to D/C homeCounts: Sponge count: correct Instrument count: correct Needle count: correct at [address] [facility] #: [id number] OF REPORT OPOperative [id number]:56:[id number] ilable for patient [id number]:14:52 HCAPM
[2023-09-24] MEDS ORDERED: ONDANSETRON 4 MG/2 ML VIAL ONE (00:15)
[2023-09-24] MEDS ORDERED: HYDROMORPHONE HCL 1 MG/ML INJ ONE ×2 (00:16→01:36)
[2023-09-24] MEDS ORDERED: FAMOTIDINE 20 MG/2 ML VIAL IV ONE (00:16)
[2023-09-24 00:26] LABS: Hematocrit 38.5 % (36.0-45.0); Lymphocytes % 4.8 % (15.3-44.8); MCV 89.4 fL (80-100); MPV 7.8 fL (7.6-11.3); Platelets 388 thou/uL (152-406); RBC Red Blood Cell Count 4.31 M/uL (3.86-4.86)
[2023-09-24 00:34] LABS: Protime INR 1.17
[2023-09-24 00:47] LABS: Albumin 3.8 g/dL (3.4-5.0); Bilirubin Direct 0.2 mg/dL (0-0.2); Bilirubin Indirect, Calculated 0.3 mg/dL (0.2-0.8); Bilirubin Total 0.5 mg/dL (0.2-1.0); Magnesium 2.1 mg/dL (1.6-2.4); Potassium 4.1 mEq/L (3.5-5.1); Protein, Total 7.4 g/dL (6.4-8.2); Troponin High Sensitivity 3.7 pg/mL (<58.9)
[2023-09-24 01:07] LABS: Platelet Estimate ADEQ
[2023-09-24 01:08] LABS: Blood Morphology Comment NOT SEEN (NOT SEEN)
--- NOTE | 2023-09-24 01:38 | EDPHYS ---
Physician Documentation [facility] Name: Maria Del Carmen Stokes Age: 37 yrs Sex: Female : 1985 Arrival Date: 09/23/2023 Time: 23:46 Bed 5 Private MD: ED Physician Mithc Dominguez HPI: 09/24 00:00 This 37 yrs old Female presents to ER via Wheelchair with complaints of Abdominal Pain. cp 00:00 The patient presents with abdominal pain in the upper abdomen. Onset: The symptoms/episode began/occurred today. Associated signs and symptoms: Pertinent negatives: constipation, diarrhea, fever, vomiting. The symptoms are described as constant. Severity of pain: in the emergency department the pain is unchanged despite home interventions. 00:00 Patient reports having total hysterectomy performed by DR Rodriguez earlier today at [facility]. FAMILY PHYSICIAN: 09/23 23:59 LMP N/A - Hysterectomy, Not as6 Historical: - Allergies: 23:58 PENICILLINS; as6 23:58 Codeine; as6 23:58 Levaquin; as6 23:58 Tramadol HCl; as6 - PMHx: 23:58 ADD/ADHD; as6 - PSHx: 23:58 Cholecystectomy; Total abdominal hysterectomy; hernia; as6 - Immunization history:: Adult Immunizations up to date. - Social history:: Smoking status: Patient reports the use of cigarette tobacco products. ROS: 09/24 00:05 Constitutional: Negative for fever, cp 00:05 Eyes: Negative for injury, pain, redness, and discharge, cp 00:05 Cardiovascular: Positive for chest pain, 00:05 Respiratory: Negative for cough, shortness of breath, wheezing, 00:05 Abdomen/GI: Positive for abdominal pain, Negative for vomiting, diarrhea, constipation, 00:05 Back: Negative for pain at rest, pain with movement, 00:05 : Negative for urinary symptoms, 00:05 Neuro: Negative for altered mental status, dizziness, headache, weakness, 00:05 All other systems are negative, Exam: 00:10 Constitutional: The patient appears alert, awake, non-diaphoretic, well developed, well cp nourished, in obvious pain, uncomfortable, 00:10 Head/Face: Normocephalic, atraumatic. cp 00:10 Eyes: Periorbital structures: appear normal, Conjunctiva: normal, no exudate, no injection, Sclera: no appreciated abnormality, Lids and lashes: appear normal, bilaterally, 00:10 ENT: External ear(s): are unremarkable, Nose: is normal, Mouth: Lips: moist, Oral mucosa: pink and intact, moist, Posterior pharynx: Airway: no evidence of obstruction, patent, 00:10 Neck: ROM/movement: is normal, is supple, without pain, no range of motions limitations, no meningismus, 00:10 Chest/axilla: Inspection: normal, 00:10 Cardiovascular: Rate: normal, Rhythm: regular, Edema: is not appreciated, JVD: is not appreciated, 00:10 Respiratory: the patient does not display signs of respiratory distress, Respirations: normal, no use of accessory muscles, no retractions, labored breathing, is not present, Breath sounds: are clear throughout, no decreased breath sounds, no stridor, no wheezing, 00:10 Abdomen/GI: Inspection: distension, is not seen, Bowel sounds: active, all quadrants, Palpation: soft, in all quadrants, severe abdominal tenderness, in the right upper quadrant and left upper quadrant, rebound tenderness, is not appreciated, voluntary guarding, is elicited in the right upper quadrant and left upper quadrant, 00:10 Neuro: Orientation: to person, place \T\ time. Mentation: is normal, Cerebellar function: is grossly normal, Motor: moves all fours, strength is normal, Sensation: is normal, 00:28 ECG was reviewed by the Attending Physician. cp Vital Signs: 09/23 23:59 BP 139 / 104; Pulse 82; Resp 18; Temp 98.4; Pulse Ox 100% ; Weight 60.78 kg; Height 5 as6 ft. 1 in. ; Pain 06/18; 23:59 Body Mass Index 25.32 (60.78 kg, 154.94 cm) as6 23:59 Pain Scale: Adult as6 MDM: 23:50 Patient medically screened. cp 09/24 01:42 Data reviewed: vital signs, nurses notes, lab test result(s), radiologic studies, CT cp scan, plain films. Management of patient was discussed with the following: DR Rodriguez and will transfer patient to LTAC, [facility] within [facility]. 02:15 Transition of care: After a detail discussion of the patient's case, care is cp transferred to Mitch Dominguez MD. 03:20 ED course: Patient signed out to me by Blu KEVIN, here for abdominal pain. In ec2 brief patient arrives today with abdominal pain with a recent hysterectomy with gynecology with CT imaging that showed extensive pneumoperitoneum, I personally discussed the results with radiology who expressed significant concern regarding the extent of the pneumoperitoneum being out of proportion to the recent surgery. Subsequently HERBERTH had discussed the case with gynecology who came to evaluate the patient bedside. Top Lift Nailer Michael evaluated the patient bedside and she did not feel the findings were consistent with or postoperative complication and recommended discharge. Patient ultimately with a lactic acidosis of 2.9 as well as a leukocytosis with significant pneumoperitoneum, given that gynecology feels that this is not a surgical complication I will admit her to the hospitalist for continued pain management and fluid resuscitation for lactic acidosis. I discussed case with the hospitalist who agrees to accept the patient and will continue fluid resuscitation and pain control.. 09/24 00:01 Order name: Basic Metabolic Panel; Complete Time: 01:08 cp 09/24 01:08 Interpretation: Normal except: NA 135; GLUC 148; GFR 83. cp 09/24 00:01 Order name: CBC with Diff; Complete Time: 01:08 cp 09/24 00:34 Interpretation: Normal except: WBC 20.30; SYLVIA% 92.0; LYM% 4.8; MN% 3.1; NEUT A 18.7. cp 09/24 00:01 Order name: LFT's; Complete Time: 01:08 cp 09/24 00:01 Order name: Magnesium; Complete Time: 01:08 cp 09/24 00:01 Order name: PT-INR; Complete Time: 00:34 cp 09/24 00:01 Order name: Troponin HS; Complete Time: 01:08 cp 09/24 00:30 Order name: Manual Differential; Complete Time: 01:08 EDMS 09/24 01:26 Order name: Lactate w/ 2H reflex if indic.; Complete Time: 02:44 cp 09/24 01:26 Order name: Blood Culture Adult (2) cp 09/24 00:01 Order name: XRAY Chest (1 view) cp 09/24 00:01 Order name: CT Chest, Abdomen, Pelvis - W/Contrast cp 09/24 00:01 Order name: EKG; Complete Time: 00:02 cp 09/24 00:01 Order name: Cardiac monitoring; Complete Time: 00:14 cp 09/24 00:01 Order name: EKG - Nurse/Tech; Complete Time: 00:14 cp 09/24 00:01 Order name: IV Saline Lock; Complete Time: 00:14 cp 09/24 00:01 Order name: Labs collected and sent; Complete Time: 00:14 cp 09/24 00:01 Order name: O2 Per Protocol; Complete Time: 00:14 cp 09/24 00:01 Order name: O2 Sat Monitoring; Complete Time: 00:14 cp 09/24 01:29 Order name: NPO; Complete Time: 01:39 cp EC:28 Rate is 94 beats/min. Rhythm is regular. AL interval is normal. QRS interval is normal. cp QT interval is normal. T waves are Inverted in lead aVR. Interpreted by me. Reviewed by me. Administered Medications: 00:21 Drug: HYDROmorphone IVP 1 mg IVP once Route: IVP; Site: left forearm; rv 03:15 Follow up: Response: No adverse reaction; RASS: Alert and Calm (0) rv 00:22 Drug: Ondansetron IVP 4 mg IVP once; over 2 minutes Route: IVP; Site: left forearm; rv 03:15 Follow up: Response: No adverse reaction rv 00:22 Drug: Famotidine IVP 20 mg IVP once; dilute with 10 mL 0.9% NaCl; give over 2 minutes rv Route: IVP; Site: left forearm; 03:15 Follow up: Response: No adverse reaction rv 01:39 Drug: HYDROmorphone IVP 1 mg IVP once Route: IVP; Site: left forearm; rv 03:15 Follow up: Response: No adverse reaction; RASS: Alert and Calm (0) rv 01:51 Not Given (Physician Discretion): [id number] mg IVP once cp 02:00 CANCELLED (Physician Discretion): ns 0.9% 1000 ml IV at 1 bolus Per protocol; 1000 mL cp bolus 02:19 Drug: Cefepime IVPB 1 grams IVPB at 200 ml/hr once over 30 mins; (mix in NS 100 mL) rv Route: IVPB; Rate: 200 ml/hr; Infused Over: 30 mins; Site: left forearm; 03:15 Follow up: Response: No adverse reaction; IV Status: Completed infusion; IV Intake: rv 100ml 02:19 Drug: NS 0.9% IV 1000 ml IV at 125 ml/hr continuous Route: IV; Rate: 125 ml/hr; Site: rv left forearm; 04:27 Follow up: IV Status: Infusion continued upon admission rv 03:15 Drug: metroNIDAZOLE IVPB 500 mg 100 ml IVPB once over 30 mins Volume: 100 ml; Route: rv IVPB; Infused Over: 30 mins; Site: left forearm; 04:27 Follow up: Response: No adverse reaction; IV Status: Completed infusion; IV Intake: rv 100ml 04:27 Drug: Ketorolac IVP 30 mg IVP once Route: IVP; Site: left forearm; rv 04:51 Follow up: Response: No adverse reaction rv Disposition: 03:25 I agree with the assessment and plan of care. I reviewed the patient's care provided by ec2 Advanced Practice Provider \T\ agree w/ the diagnosis \T\ care plan. I personally saw the pt \T\ performed a substantive portion of the visit, incldng all aspects of the (History/Exam/Medical Decision Making). Disposition Summary: 09/24/23 03:20 Hospitalization Ordered Notes: Hospitalization Status: Observation ec2 Provider: Jr Kerr ec2 [facility] Condition: Stable(09/24/23 03:20) ec2 Problem: new(09/24/23 03:20) ec2 Symptoms: have improved(09/24/23 03:20) ec2 Bed/Room Type: Standard ec2 Room Assignment: 216(09/24/23 04:10) as6 Diagnosis - Abdominal pain, Generalized(09/24/23 03:20) ec2 - Lactic Acidosis ec2 - Leukocytosis ec2 - Pneumoperitoneum ec2 Forms: - Medication Reconciliation Form ec2 - SBAR form ec2 - Leadership Thank You Letter ec2 Signatures: Dispatcher [employer] Blu Cheema PA PA cp Vicente, Ronaldo, RN RN Kane Clay RN RN as6 Mitch Dominguez MD MD ec2 Corrections: (The following items were deleted from the chart) 02:00 02:00 NS 0.9% IV 1000 ml IV at 1 bolus Per protocol; 1000 mL bolus ordered. cp cp 03:19 01:37 DR cp ec2 03:19 01:37 Other Acute Care Facility cp ec2 03:19 01:37 Higher level of care cp ec2 03:19 01:37 Stable cp ec2 03:19 01:37 new cp ec2 03:19 01:37 have improved cp ec2 03:19 01:37 abdominal pain cp ec2 03:19 03:19 DR ec2 ec2 03:19 03:19 Abdominal pain, Generalized ec2 ec2 03:19 03:19 Pneumoperitoneum ec2 ec2 03:19 03:19 Lactic Acidosis ec2 ec2 03:19 03:19 Leukocytosis ec2 ec2 03:51 03:20 ED course: Patient signed out to me by Blu KEVIN, here for abdominal pain. ec2 In brief patient arrives today with abdominal pain with a recent hysterectomy with gynecology with CT imaging that showed extensive pneumoperitoneum, I personally discussed the results with radiology who expressed significant concern regarding the extent of the pneumoperitoneum being out of proportion to the recent surgery. Subsequently HERBERTH had discussed the case with gynecology who came to evaluate the patient bedside. Top Lift Nailer Michael evaluated the patient bedside and she did not feel the findings were consistent with or postoperative complication and recommended discharge. Patient ultimately with a lactic acidosis of 2.9 as well as a leukocytosis with significant pneumoperitoneum, given that gynecology feels that this is not a surgical complication I will admit her to the hospitalist for continued pain management and fluid resuscitation for lactic acidosis.. ec2 04:10 03:20 ec2 as6
--- NOTE | 2023-09-24 01:38 | ER ---
Nurse's Notes [facility] Name: Maria Del Carmen Stokes Age: 37 yrs Sex: Female : 1985 Arrival Date: 09/23/2023 Time: 23:46 Bed 5 Private MD: Diagnosis: Abdominal pain, Generalized;Lactic Acidosis;Leukocytosis;Pneumoperitoneum Presentation: 09/23 23:59 Chief complaint: Patient states: "I had a hysterectomy today and I'm having horrible as6 upper abdominal pain. They said to come to the ER to get it checked out. I'm hoping it's just gas". Coronavirus screen: At this time, the client does not indicate any symptoms associated with coronavirus-19. Ebola Screen: No symptoms or risks identified at this time. Initial Sepsis Screen: Does the patient meet any 2 criteria? No. Patient's initial sepsis screen is negative. Does the patient have a suspected source of infection? No. Patient's initial sepsis screen is negative. Risk Assessment: Do you want to hurt yourself or someone else? Patient reports no desire to harm self or others. Onset of symptoms was September 23, 2023. 23:59 Method Of Arrival: Wheelchair as6 23:59 Acuity: WILLIS 3 as6 Triage Assessment: 09/24 00:23 General: Appears uncomfortable, Behavior is calm, cooperative. Pain: Complains of pain rv in abdomen. GI: Reports lower abdominal pain, upper abdominal pain, cramping. EYELET CUTTER: 09/23 23:59 LMP N/A - Hysterectomy, Not as6 Historical: - Allergies: 23:58 PENICILLINS; as6 23:58 Codeine; as6 23:58 Levaquin; as6 23:58 Tramadol HCl; as6 - PMHx: 23:58 ADD/ADHD; as6 - PSHx: 23:58 Cholecystectomy; Total abdominal hysterectomy; hernia; as6 - Immunization history:: Adult Immunizations up to date. - Social history:: Smoking status: Patient reports the use of cigarette tobacco products. Screenin/16 00:22 [facility] ED Fall Risk Assessment (Adult) History of falling in the last 3 months, rv including since admission No falls in past 3 months (0 pts) Score/Fall Risk Level 0 - 2 = Low Risk Oriented to surroundings, Maintained a safe environment, Educated pt \\T\\ family on fall prevention, incl call for assistance when getting out of bed, Assessed \\T\\ reinforced patient's understanding of fall precautions. Abuse screen: Denies threats or abuse. Denies injuries from another. Nutritional screening: No deficits noted. Tuberculosis screening: No symptoms or risk factors identified. Assessment: 00:23 Cardiovascular: Capillary refill < 3 seconds Patient's skin is warm and dry. rv Respiratory: Airway is patent Respiratory effort is even, unlabored. GI: Bowel sounds present X 4 quads. Abd is soft and non tender X 4 quads. : No signs and/or symptoms were reported regarding the genitourinary system. Derm: Skin is intact. Vital Signs: 09/23 23:59 BP 139 / 104; Pulse 82; Resp 18; Temp 98.4; Pulse Ox 100% ; Weight 60.78 kg; Height 5 as6 ft. 1 in. ; Pain 10/10; 23:59 Body Mass Index 25.32 (60.78 kg, 154.94 cm) as6 23:59 Pain Scale: Adult as6 ED Course: 23:49 Patient arrived in ED. ag3 23:50 Blu Davis PA is PHCP. cp 23:50 Mitch Dominguez MD is Attending Physician. cp 23:59 Arm band placed on. as6 09/24 00:00 Triage completed. as6 00:01 Kenton Bravo, RN is Primary Nurse. rv 00:21 XRAY Chest (1 view) In Process Unspecified. EDMS 00:22 Patient has correct armband on for positive identification. Client placed on continuous rv cardiac and pulse oximetry monitoring. NIBP monitoring applied. residential monitor on. 00:22 No provider procedures requiring assistance completed. Inserted saline lock: 20 gauge rv in left forearm, using aseptic technique. Blood collected. ultrasound guided. 01:04 CT Chest, Abdomen, Pelvis - W/Contrast In Process Unspecified. EDMS 03:20 Jr Kerr MD is Hospitalizing Provider. ec2 04:52 Patient admitted, IV remains in place. rv Administered Medications: 00:21 Drug: HYDROmorphone IVP 1 mg IVP once Route: IVP; Site: left forearm; rv 03:15 Follow up: Response: No adverse reaction; RASS: Alert and Calm (0) rv 00:22 Drug: Ondansetron IVP 4 mg IVP once; over 2 minutes Route: IVP; Site: left forearm; rv 03:15 Follow up: Response: No adverse reaction rv 00:22 Drug: Famotidine IVP 20 mg IVP once; dilute with 10 mL 0.9% NaCl; give over 2 minutes rv Route: IVP; Site: left forearm; 03:15 Follow up: Response: No adverse reaction rv 01:39 Drug: HYDROmorphone IVP 1 mg IVP once Route: IVP; Site: left forearm; rv 03:15 Follow up: Response: No adverse reaction; RASS: Alert and Calm (0) rv 01:51 Not Given (Physician Discretion): [id number] mg IVP once cp 02:00 CANCELLED (Physician Discretion): ns 0.9% 1000 ml IV at 1 bolus Per protocol; 1000 mL cp bolus 02:19 Drug: Cefepime IVPB 1 grams IVPB at 200 ml/hr once over 30 mins; (mix in NS 100 mL) rv Route: IVPB; Rate: 200 ml/hr; Infused Over: 30 mins; Site: left forearm; 03:15 Follow up: Response: No adverse reaction; IV Status: Completed infusion; IV Intake: rv 100ml 02:19 Drug: NS 0.9% IV 1000 ml IV at 125 ml/hr continuous Route: IV; Rate: 125 ml/hr; Site: rv left forearm; 04:27 Follow up: IV Status: Infusion continued upon admission rv 03:15 Drug: metroNIDAZOLE IVPB 500 mg 100 ml IVPB once over 30 mins Volume: 100 ml; Route: rv IVPB; Infused Over: 30 mins; Site: left forearm; 04:27 Follow up: Response: No adverse reaction; IV Status: Completed infusion; IV Intake: rv 100ml 04:27 Drug: Ketorolac IVP 30 mg IVP once Route: IVP; Site: left forearm; rv 04:51 Follow up: Response: No adverse reaction rv Medication: 00:23 VIS not applicable for this client. rv Intake: 03:15 IV: 100ml; Total: 100ml. rv 04:27 IV: 100ml; Total: 200ml. rv Outcome: 01:37 ER care complete, transfer ordered by MD. cp 03:20 Decision to Hospitalize by Provider. ec2 04:51 Admitted to Med/surg accompanied by nurse, via wheelchair, room 216, with chart, Report rv called to DAMI CISNEROS 04:51 Condition: good 04:51 Instructed on the need for admit, 04:52 Patient left the ED. rv Signatures: Dispatcher [employer] EDBlu Sharma PA PA cp Vicente, Ronaldo, RN RN rv Chio Barnett ag3 Kane Otto RN RN as6 Mitch Dominguez MD MD ec2 Corrections: (The following items were deleted from the chart) 04:52 04:52 IV discontinued, intact, bleeding controlled, No redness/swelling at site. rv Pressure dressing applied, rv
[2023-09-24] MEDS ORDERED: METRONIDAZOLE 500mg IVPB 500 MG/100 ML BAG IV ONE (02:12)
[2023-09-24] MEDS ORDERED: NA CHLORIDE 0.9% 1,000 ML ONE (02:12)
[2023-09-24] MEDS ORDERED: NA CHLORIDE 0.9% 100 ML ONE (02:12)
[2023-09-24] MEDS ORDERED: CEFEPIME 1 GM/VIAL ONE (02:12)
[2023-09-24] MEDS ORDERED: ACETAMINOPHEN 325 MG TABLET PO PRN (03:51)
[2023-09-24] MEDS ORDERED: NA CHLORIDE 0.9% 1,000 ML IV SCH (04:00)
--- NOTE | 2023-09-24 04:02 | P.HP ---
Certification for Inpatient Patient admitted to: Observation With expected LOS: <2 Midnights Practitioner: I am a practitioner with admitting privileges, knowledge of patient current condition, hospital course, and medical plan of care. Services: Services provided to patient in accordance with Admission requirements found in Title 42 Section 412.3 of the Code of Federal Regulations Patient History Date of Service: 09/24/23 Reason for admission: Abdominal pain, status post hysterectomy. History of Present Illness: 37-year-old female patient who recently had hysterectomy and who came back to the emergency department with complaint of abdominal pain and feeling unwell. She reported that she could not fill her pain medication of [place] for pain control postoperatively and because she had worsening pain she came to the ED. In the ED labs done revealed elevated white cell of 20,000, elevated lactic acid of 2.[address] of the abdomen/pelvis did show some pneumoperitoneum however there was no overt abscess collection. her surgery was less than 24 hours ago. She was discussed with vp account director who performed surgery and was admitted for pain control and IV antibiotic therapy. Allergies No Known Allergies Allergy (Uncoded 02/06/17 21:00) Unknown Review of Systems General: Malaise Eyes: Unremarkable ENT: Unremarkable Respiratory: Unremarkable Cardiovascular: Unremarkable Gastrointestinal: Abdominal Pain Genitourinary: Unremarkable Musculoskeletal: Unremarkable Integumentary: Unremarkable Neurological: Unremarkable Physical Examination - Physical Exam General: Alert, Oriented x3 HEENT: Atraumatic, Normocephalic Respiratory: Normal air movement Cardiovascular: Regular rate/rhythm, Normal S1 S2 Gastrointestinal: Tenderness Neurological: Normal speech, Normal strength at 5/5 x4 extr - Studies Laboratory Data (last 24 hrs) 09/24/23 09/24/23 09/24/23 00:10 00:10 00:10 WBC 20.30 H Hgb 13.5 Hct 38.5 Plt Count 388 PT 12.8 H INR 1.17 Sodium 135 L Potassium 4.1 BUN 12 Creatinine 0.91 Glucose 148 H Magnesium 2.1 Total Bilirubin 0.5 AST 23 ALT 39 Alkaline Phosphatase 77 Assessment and Plan - Plan Status post hysterectomy. Abdominal pain deemed secondary to postoperative state however there is concern for possibility of underlying infectious process with elevated lactic acid and white cell. Will continue empiric antibiotic therapy with cefepime and Flagyl. Continue pain control with as needed Dilaudid and also Tylenol. We will add norco dose for transition to oral medication prior to discharge. Follow clinical symptomatology closely. Prophylaxis: Lovenox for DVT prophylaxis CODE STATUS: Full code Disposition: we will treat her abdominal pain, rule out underlyingantiseptic condition and discharge her when she is deemed clinically stable. Discharge Plan: Home - Advance Directives Does patient have a Living Will: No Does patient have a Durable POA for Healthcare: No
[2023-09-24] MEDS ORDERED: KETOROLAC 30 MG/ML INJ ONE (04:25)
--- NOTE | 2023-09-24 04:45 | CON ---
Date of Consultation: 09/24/2023 Reason For Consultation: Right upper quadrant pain. The patient is postop day 0 from a robotic tota l laparoscopic hysterectomy, bilateral salpingectomy, left oophorectomy, and endometriosis excision, lysis of omental adhesions from ventral hernia mesh. History Of Present Illness: The patient is a 37-year-old with complaints of pelvic pain and left com plex adnexal mass. She was worked up and she was suspected to have endometriosis. The robotic hyste rectomy as dictated above has been performed less than 12 hours ago. She has been doing very well po stoperatively. Her intraoperative findings were a left ovarian endometrioma that was adhered to the left lateral margin of the bowel, posterior broad ligament, uterosacral ligament. All thi s was dissected and hysterectomy was performed with excellent hemostasis. The right ovary was left i ntact. No other problems. Bowel was inspected carefully before the closure of all her robotic incis ions. The patient has no vaginal bleeding at this time. I was called as she was experiencing right-sided u pper abdominal and lower chest pain which was worse on breathing. The patient's had called carlos pena and I directed her to go to the ER with concerns that she has been on that was stopped a week ago for concern of pneumothorax or an aspiration pneumonitis on the right side. In the ER, she had been saturating 100%. I received a call after a CT scan report that stated possible bowel perfo ration because of the air and so just examining the patient. Physical Examination: General: The patient is alert, does not look apprehensive, not in any severe pain. She has been sit ting upright. ABDOMEN: Soft, nondistended, minimally tender on the incisions, appropriate to postop day 0 and then there is no rebound, no bleeding at the site of incisions or hematoma. Vital Signs: Stable. Pulse 82, temperature 98.4, and pulse ox 100% on room air. Toradol had been g iven to the patient and 1 mg of Dilaudid, 30 mg of Toradol on direction, then I have attempted to con tact the radiologist, but it went to 800 number and Assessment And Plan: 1.Postop pain and the right upper quadrant pain is mostly from postop air trapped under the diaphrag m. No evidence of any other issues. All the findings dictated in the CT report very consistent with her procedure. I discussed with the patient her findings and my impression and reassured her how to take her pain medication in the regular fashion. She will be discharged home now and I will follow up with this patient. If the pain does get out of control, she will call and talk to us or come into the office. ER instructions given as well. 2.She is a diabetic patient. Her fingerstick was less than . SK/MODL Voice ID: [id number] Report ID: [id number]
[2023-09-24] MEDS ORDERED: HYDROCODONE/APAP 10/325 TAB PO PRN (05:09)
[2023-09-24] MEDS ORDERED: HYDROMORPHONE HCL 0.5 MG/0.5 ML INJ IV PRN (05:09)
[2023-09-24 05:13] VITALS: O2SAT 100
[2023-09-24 05:26] VITALS: BMI 25.2
[2023-09-24] MEDS: NA CHLORIDE 0.9% 1,000 ML IV ONE ×2 (06:10→06:30)
[2023-09-24 07:17] LABS: Specific Gravity 1.017 (1.005-1.030); Urine Bacteria None Seen /HPF (<20); Urine Bilirubin NEGATIVE (Negative); Urine Blood Trace (Negative); Urine Clarity Clear (Clear); Urine Color Colorless (Yellow); Urine Glucose NEGATIVE (Negative); Urine Mucus Slight /HPF (None Seen); Urine Protein NEGATIVE (Negative); Urine RBC <5 /HPF (None Seen); Urine Urobilinogen Normal (Normal)
[2023-09-24] MEDS ORDERED: METRONIDAZOLE 500mg IVPB 500 MG/100 ML BAG IV SCH (09:00)
[2023-09-24] MEDS ORDERED: CEFEPIME 1 GM in NA CHLORIDE 0.9% 100 ML IV SCH (09:00)
[2023-09-24] MEDS ORDERED: ENOXAPARIN 40 MG/0.4 ML SQ SCH (09:00)
[2023-09-24 10:11] LABS: Hematocrit 36.6 % (36.0-45.0); MCV 89.9 fL (80-100); MPV 7.6 fL (7.6-11.3); Platelets 399 thou/uL (152-406); RBC Red Blood Cell Count 4.08 M/uL (3.86-4.86)
[2023-09-24 10:21] LABS: Potassium 3.4 mEq/L (3.5-5.1)
--- NOTE | 2023-09-24 12:05 | P.DS ---
Admission Date: 09/24/23 Discharge Date: 09/24/23 Reason for Admission: Abdominal pain, status post hysterectomy. Consultations: Dr. Rodriguez Brief History of Present Illness: 37-year-old female patient who recently had hysterectomy and who came back to the emergency department with complaint of abdominal pain and feeling unwell. She reported that she could not fill her pain medication of [place] for pain control postoperatively and because she had worsening pain she came to the ED. In the ED labs done revealed elevated white cell of 20,000, elevated lactic acid of 2.[address] of the abdomen/pelvis did show some pneumoperitoneum however there was no overt abscess collection. her surgery was less than 24 hours ago. She was discussed with cardiovascular operating room nurse who performed surgery and was admitted for pain control and IV antibiotic therapy Hospital Course: Patient was admitted to the hospital under observation after coming to the emergency department for upper abdominal pain after having a hysterectomy eariler that day. She was evaluated by her surgeon this morning who stated that her symptoms are consistent with the postoperative period for her procedure as well as the free air noted on the CT. lactate level, white blood cell count improved, patient's pain has significantly improved as well and she is tolerating regular diet and ambulating without difficulty. She will be discharged to follow-up with her surgeon on an outpatient basis. Problem list Status post hysterectomy Abdominal pain deemed secondary to postoperative state <Delonte Chen - Last Filed: 09/24/23 12:04> Admission Date: 09/24/23 Discharge Date: 09/24/23 <Willam Hickman - Last Filed: 09/24/23 21:10> Disposition: ROUTINE DISCHARGE Discharge Condition: GOOD Vital Signs/Physical Exam: Temp Pulse Resp BP Pulse Ox 97.9 F 75 18 131/83 96 09/24/23 08:00 09/24/23 08:00 09/24/23 08:00 09/24/23 08:00 09/24/23 08:00 General: Alert, In no apparent distress, Oriented x3 HEENT: Atraumatic, PERRLA Neck: Supple, JVD not distended Respiratory: Clear to auscultation bilaterally, Normal air movement Cardiovascular: Regular rate/rhythm, Normal S1 S2 Gastrointestinal: Normal bowel sounds, Tenderness (Mild epigastric tenderness) Musculoskeletal: No tenderness Integumentary: No rashes Neurological: Normal speech, Normal tone, Normal affect Laboratory Data at Discharge: WBC 15.20 thou/uL (4.3-10.9) H 09/24/23 09:51 Hgb 12.6 g/dL (12.0-15.0) 09/24/23 09:51 Hct 36.6 % (36.0-45.0) 09/24/23 09:51 Plt Count 399 thou/uL (152-406) 09/24/23 09:51 PT 12.8 SECONDS (9.5-12.5) H 09/24/23 00:10 INR 1.17 09/24/23 00:10 Sodium 140 mEq/L (136-145) D 09/24/23 09:51 Potassium 3.4 mEq/L (3.5-5.1) L D 09/24/23 09:51 BUN 9 mg/dL (7-18) 09/24/23 09:51 Creatinine 0.82 mg/dL (0.55-1.02) 09/24/23 09:51 Glucose 100 mg/dL (74-106) 09/24/23 09:51 Magnesium 2.1 mg/dL (1.6-2.4) 09/24/23 00:10 Total Bilirubin 0.5 mg/dL (0.2-1.0) 09/24/23 00:10 AST 23 U/L (15-37) 09/24/23 00:10 ALT 39 U/L (13-56) 09/24/23 00:10 Alkaline Phosphatase 77 U/L (45-117) 09/24/23 00:10 <Delonte Chen - Last Filed: 09/24/23 12:04> Vital Signs/Physical Exam: Temp Pulse Resp BP Pulse Ox 98.2 F 86 16 124/81 97 09/24/23 12:00 09/24/23 12:00 09/24/23 12:00 09/24/23 12:00 09/24/23 12:00 Laboratory Data at Discharge: WBC 15.20 thou/uL (4.3-10.9) H 09/24/23 09:51 Hgb 12.6 g/dL (12.0-15.0) 09/24/23 09:51 Hct 36.6 % (36.0-45.0) 09/24/23 09:51 Plt Count 399 thou/uL (152-406) 09/24/23 09:51 PT 12.8 SECONDS (9.5-12.5) H 09/24/23 00:10 INR 1.17 09/24/23 00:10 Sodium 140 mEq/L (136-145) D 09/24/23 09:51 Potassium 3.4 mEq/L (3.5-5.1) L D 09/24/23 09:51 BUN 9 mg/dL (7-18) 09/24/23 09:51 Creatinine 0.82 mg/dL (0.55-1.02) 09/24/23 09:51 Glucose 100 mg/dL (74-106) 09/24/23 09:51 Magnesium 2.1 mg/dL (1.6-2.4) 09/24/23 00:10 Total Bilirubin 0.5 mg/dL (0.2-1.0) 09/24/23 00:10 AST 23 U/L (15-37) 09/24/23 00:10 ALT 39 U/L (13-56) 09/24/23 00:10 Alkaline Phosphatase 77 U/L (45-117) 09/24/23 00:10 <Willam Hickman - Last Filed: 09/24/23 21:10> Diet: Regular Activity: No lifting more than 10 lbs Time spent managing pt's care (in minutes): 35 <Delonte Chen - Last Filed: 09/24/23 12:04> Physician Review: Patient Assessed, Agree with Above Assessment and Plan (Patient seen and examined with AIR CONDITIONING ENGINEER April. I reviewed case with Dr. Rodriguez over the phone. Patient feeling much better, pain resolved, labwork improved. Stable for discharge home with close follow up with Dr. Rodriguez.) <Willam Hickman - Last Filed: 09/24/23 21:10> Home Medications: Tirzepatide [Mounjaro] 7.5 mg IM Q7D 09/24/23 Physician Discharge Instructions: Patient was admitted to the hospital under observation after coming to the emergency department for upper abdominal pain after having a hysterectomy eariler that day. She was evaluated by her surgeon this morning who stated that her symptoms are consistent with the postoperative period for her procedure as well as the free air noted on the CT. lactate level, white blood cell count improved, patient's pain has significantly improved as well and she is tolerating regular diet and ambulating without difficulty. She will be discharged to follow-up with her surgeon on an outpatient basis. Followup: Ashley Rodriguez MD [ACTIVE - CAN ADMIT] - 1 Week SLAVA TERRELL [Primary Care Provider] - 1-2 Weeks
[2023-09-24 12:25] VITALS: BP 124/81; TEMP 98.2
--- NOTE | 2023-09-25 15:30 | RAD REPORT ---
EXAM DESCRIPTION: CT ABDOMEN AND PELVIS WITH CONTRAST CLINICAL HISTORY: ABD PAIN COMPARISON: 07/24/2023 TECHNIQUE: CT of the abdomen and pelvis performed following IV administration of iodinated contras t. This exam was performed according to our departmental dose-optimization program, which includes au tomated exposure control, adjustment of the mA and/or kV according to patient size and/or use of iter ative reconstruction technique. FINDINGS: Lung Bases: The visualized lung bases are clear. Bones: Levoconvex scoliosis of the lumbar spine. Multilevel endplate spondylosis, disc narrowing, and facet arthropathy. Osteopenia. Osteoarthritic change of the hips. Abdomen: Liver: Hepatomegaly and decreased density. No intrahepatic biliary dilatation. Gallbladder: No calcified gallstones. Spleen, Pancreas, and Adrenal Glands: The spleen and adrenal glands are unremarkable. Stable atroph y of the tail of the pancreas. Kidneys: No hydronephrosis or obstructing calculus. Vasculature: Aortoiliac atherosclerosis. IVC is unremarkable. The portal vein is patent. The proxim al visceral and renal arteries are patent. Stomach: Large hiatal hernia. Other: No free intraperitoneal air. No free fluid or lymphadenopathy. Mild hazy appearance of the mid abdominal mesentery is stable. Pelvis: Bladder: Urinary bladder is unremarkable. Bowel: No dilated loops of large or small bowel. Scattered diverticula of the colon. Moderate amoun t of stool. Appendix: Normal appendix. Pelvis: Prior hysterectomy. IMPRESSION: 1. Stable haziness of the mid abdominal mesentery could be related to nonspecific mese nteritis or related to previous episodes of pancreatitis. 2. Hepatomegaly and hepatic steatosis. 3. Large hiatal hernia. 4. Diverticulosis without evidence of acute diverticulitis. Electronically signed by: Huber Dumont DO 09/24/2023 12:35 AM LOAN FUNDER M Due to temporary technical issues with the PACS/Fluency reporting system, reports are being signed by the in house radiologists without review as a courtesy to insure prompt reporting. The interpreting radiologist is fully responsible for the content of the report.
--- NOTE | 2023-09-25 15:35 | RAD REPORT ---
EXAM DESCRIPTION: CT Chest, Abdomen and Pelvis With Intravenous Contrast CLINICAL HISTORY: The patient is 37 years old and is Female; upper abdomen pain;Chest pain , recent hysterectomy, Bed Name: 5 TECHNIQUE: Axial computed tomography images of the chest, abdomen and pelvis with intravenous contra st. Sagittal and coronal reformatted images were created and reviewed. This CT exam was performed using one or more of the following dose reduction techniques: automated exposure control, adjustme nt of the mA and/or kV according to patient size, and/or use of iterative reconstruction technique. COMPARISON: 08/26/2022 CT abdomen pelvis with contrast FINDINGS: CHEST: LUNGS: Bandlike opacities in the dependent bilateral lower lobes, favoring subsegmental atelectasis . PLEURAL SPACE: Unremarkable No significant effusion. No pneumothorax. HEART: No cardiomegaly. No significant pericardial effusion. No significant coronary artery yusef cifications. ABDOMEN: LIVER: Unremarkable No mass. GALLBLADDER AND BILE DUCTS: Cholecystectomy clips noted in the gallbladder fossa. No greater than e xpected ductal dilatation. PANCREAS: Unremarkable No ductal dilation. No mass. SPLEEN: Unremarkable No splenomegaly. ADRENALS: Unremarkable No mass. KIDNEYS AND URETERS: Unremarkable No hydronephrosis. No solid mass. STOMACH AND BOWEL: No mucosal thickening. No evidence of small or large bowel obstruction. PELVIS: APPENDIX: No findings to suggest acute appendicitis. BLADDER: Unremarkable No mass. REPRODUCTIVE: Surgical absence of the uterus. CHEST, ABDOMEN and PELVIS: INTRAPERITONEAL SPACE: Moderate volume abdominopelvic subdiaphragmatic free air demonstrated throug hout the intraperitoneal and left greater than right retroperitoneal spaces, as well as along the lef t greater than right abdominal lovell and abdominal musculature, and about the umbilicus. Trace free fluid noted within the pelvis. No suspicious fluid collection to suggest abscess formation. No discrete fluid collection to suggest hematoma. BONES/JOINTS: No acute fracture. No dislocation. SOFT TISSUES: Postsurgical changes related to ventral hernia repair with mesh demonstrated. Extension of subcutaneous emphysema demonstrated throughout the left perianal subcutaneous ti ssues and visualized proximal left lower extremity intramuscular fascia. No obvious source of subdiaphragmatic and subcutaneous free air identified. VASCULATURE: No aortic aneurysm. No central pulmonary embolism identified. LYMPH NODES: No enlarged lymph nodes. IMPRESSION: 1. Moderate volume abdominopelvic subdiaphragmatic free air demonstrated throughout th e intraperitoneal and left greater than right retroperitoneal spaces, as well as along the left great er than right abdominal lovell and abdominal musculature, and about the umbilicus. Distribution is abn ormal and volume is greater than expected, even in the immediate postsurgical setting. No obvious donato rce of subdiaphragmatic and subcutaneous free air identified, but given distribution, suspect possibl e nonvisualized perforation of the left lateral margin of the rectum. 2. Extension of subcutaneous emphysema demonstrated throughout the left perianal subcutaneous tissu es and visualized proximal left lower extremity intermuscular fascial planes. 3. Trace free fluid noted within the pelvis. No suspicious fluid collection to suggest abscess form ation. No discrete fluid collection to suggest hematoma. 4. Bandlike opacities in the dependent bilateral lower lobes, favoring subsegmental atelectasis. Ot herwise no acute chest findings. Dr. Fletcher discussed these critical findings with Dr. Dominguez via telephone at approximately 02:21 hour s EST on 09/24/2023. Electronically signed by: Evans Fletcher MD 09/24/2023 01:34 AM CODE OFFICIAL Due to temporary technical issues with the PACS/Fluency reporting system, reports are being signed by the in house radiologists without review as a courtesy to insure prompt reporting. The interpreting radiologist is fully responsible for the content of the report.
== END 2023-09-24 13:12 | disposition home or self-care (01) ==
LOC: ER 23:46 → 2ND 09-24 04:18 → INTOOBSV 09-24 04:18
PROVIDERS: ADMIT Internal Medicine Nephrology; ATTEND Hospitalist
DX: R10.11 Right upper quadrant pain (principal); G89.18 Other acute postprocedural pain; E87.20 Acidosis, unspecified; D72.829 Elevated white blood cell count, unspecified
CPT/HCPCS: 87040 ×2; 85025; 81001; 80048 ×2; 36415; 83735; 85610; 82947 ×2; 80076; 83605 ×3; 85027; 84484; 71260; 74177; 71045; Q9967; J1650; J1170 ×2; J2405; J7030 ×2; J0692 ×2; G0378

== ENCOUNTER 2023-10-07 14:35 | Inpatient (IN) | payer BC, OTHER ==
--- OUTSIDE RECORDS SUMMARY | 2023-10-07 14:39 | XMS REPORT | Continuity of Care Document ---
Author Name Unknown Address [address] [place] [address] [facility] thconnect Address [address] [place] [address] Care Team Providers Care Dramatic Reader Name Role Phone PCP, PATIENT DOES NOT HAVE A Primary Care Physic abbi Unavailable [email or web address]_Katiffanya_S Attending Clinician Unavaila Ashley Reynolds Attending Clinician Unavaila MOY Hampton Attending Clinician Unavaila MOY Hampton Attending Clinician Unavaila GAYLE Vicente Attending Clinician Gayle Torres Attending Clinician [phone] Doctor Unassigned, [place] Attending Clinician U navailable [email or web address]_Katiffanya_S Admitting Clinician Unavaila Ashley Reynolds Admitting Clinician Unavaila ble Payers Payer Name Policy Type Policy Number Effective Date Expirati on Date Source [place] [id number] 2019 00:00:00 [facility] [id number] 2022 00:00:00 2023 00:00:00 [place] OUT [place] [id number] 2008 00:00:00 Problems Condition Name Condition Details Condition Category Status Onset Date Resolution Date Last Treatment Date Treating Clinician Comments Source Acute postoperat carina abdominal pain Acute postoperat carina abdominal pain Disease Active 7- 00:00: 00 [facility] Tobacco use disorder Tobacco use disorder Disease Active 10-30 00:00: 00 [facility] Migraines Migraines Disease Active 10-30 00:00: 00 [facility] Allergies, Adverse Reactions, Alerts Allergy Name Allergy Type Status Severity Reaction(s) Onset Date Inactive Date Treating Clinician Comments Source codeine DA Active MO VOMITING 09-20 00:00: 00 [facility] acetamin ophen DA Active MO VOMITING 09-20 00:00: 00 [facility] tramadol DA Active MO VOMITING 09-20 00:00: 00 [facility] levoflox acin DA Active MO VOMITING 09-20 00:00: 00 [facility] Penicill ins DA Active SV HIVES 09-20 00:00: 00 [facility] Penicill ins Propensi ty to adverse reaction s Active Itching 10-30 00:00: 00 [facility] PENICILL INS Drug Class Active ITCHING 10-30 00:00: 00 [facility] Social History Social Habit Start Date Stop Date Quantity Comments Source Sex Assigned At [facility] Exposure to SARS-CoV-2 (event) Not sure [facility] History of tobacco use Cigarette Smoker [facility] Cigarettes smoked current (pack per day) - Reported 2018-07-01 00:00:00 2018-07-01 00:00:00 [facility] Cigarette pack-years 2018-07-01 00:00:00 2018-07-01 00:00:00 [facility] Tobacco use and exposure 2018-07-01 00:00:00 2018-07-01 00:00:00 Never used [facility] Alcohol intake 2018-07-01 00:00:00 2018-07-01 00:00:00 Current drinker of alcohol (finding) [facility] Alcohol Comment 2013-10-30 00:00:00 2013-10-30 00:00:00 occasionally [facility] Smoking Status Start Date Stop Date Source Current every day smoker 2018-07-01 00:00:00 [facility] Medications Ordered Medication Name Filled Medication Name Start Date Stop Date Current Medication? Ordering Clinician Indication Dosage Frequency Signature (SIG) Comments Components Source ibuprofen 600 mg tablet 2017-09 00:00: 00 Yes 600mg Take 1 tablet by mouth every 6 (six) hours as needed for Pain (scale 4-6). [facility] ibuprofen 600 mg tablet 2017-09 00:00: 00 Yes 600mg Take 1 tablet by mouth every 6 (six) hours as needed for Pain (scale 4-6). [facility] ibuprofen 600 mg tablet 2017-09 00:00: 00 Yes 600mg Take 1 tablet by mouth every 6 (six) hours as needed for Pain (scale 4-6). [facility] ibuprofen 600 mg tablet 2017-09 00:00: 00 Yes 600mg Take 1 tablet by mouth every 6 (six) hours as needed for Pain (scale 4-6). [facility] ibuprofen 600 mg tablet 2017-09 00:00: 00 Yes 600mg Take 1 tablet by mouth every 6 (six) hours as needed for Pain (scale 4-6). [facility] Vital Signs Vital Name Observation Time Observation Value Comments S ource Systolic blood pressure 2020-06-06 20:49:00 120 mm[Hg] [facility] Diastolic blood pressure 2020-06-06 20:49:00 85 mm[Hg] [facility] Heart rate 2020-06-06 20:49:00 86 /min [facility] Procedures Procedure Date / Time Performed Performing Clinician Source XR HAND <3 VW RIGHT 2020-06-06 20:55:12 Gayle Hinojosa [facility] ASSIGNMENT OF BENEFITS 2020-06-06 20:30:19 Docto r Unassigned, [place] [facility] DME/SUPPLY JUSTIFICATION 2020-05-29 05:01:00 Doc tor Unassigned, [place] [facility] Encounters Start Date/Time End Date/Time Encounter Type Admission Type Attending [facility] Care Department Encounter ID Source 2023-09-30 00:00:00 2023-09-30 00:00:00 Outpatient GC_GCBZW_Ka diyala_S PRIV PRIV [id number] [facility] 2023-09-23 12:27:00 2023-09-23 12:27:00 Outpatient Ashley Blevins [facility] [id number] [facility] 2023-09-20 00:00:00 2023-09-20 00:00:00 Outpatient GC_GCBZW_Ka diyala_S PRIV PRIV [id number] [facility] 2023-09-17 00:00:00 2023-09-17 00:00:00 Outpatient GC_GCBZW_Ka diyala_S PRIV PRIV [id number] [facility] 2023-09-13 00:00:00 2023-09-13 00:00:00 Outpatient GC_GCBZW_Ka diyala_S PRIV PRIV [id number] [facility] 2023-08-27 00:00:00 2023-08-27 00:00:00 Outpatient GC_GCBZW_Ka diyala_S PRIV PRIV [id number] [facility] 2023-08-09 00:00:00 2023-08-09 00:00:00 Outpatient GC_GCBZW_Ka diyala_S PRIV PRIV [id number] [facility] 2023-08-09 00:00:00 2023-08-09 00:00:00 Outpatient GC_GCBZW_Ka diyala_S PRIV PRIV [id number] [facility] 2023-06-19 00:00:00 2023-06-19 00:00:00 Outpatient GC_GCBZW_Ka diyala_S PRIV PRIV [id number] [facility] 2023-06-19 00:00:00 2023-06-19 00:00:00 Outpatient GC_GCBZW_Ka diyala_S PRIV PRIV [id number] [facility] 2023-06-19 00:00:00 2023-06-19 00:00:00 Outpatient GC_GCBZW_Ka diyala_S PRIV PRIV [id number] [facility] 2023-06-19 00:00:00 2023-06-19 00:00:00 Outpatient GC_GCBZW_Ka diyala_S PRIV PRIV [id number] [facility] 2023-06-18 00:00:00 2023-06-18 00:00:00 Outpatient GC_GCBZW_Ka diyala_S PRIV PRIV [id number] [facility] 2023-06-04 00:00:00 2023-06-04 00:00:00 Outpatient GC_GCBZW_Ka diyala_S PRIV PRIV [id number] [facility] 2022-08-23 13:30:00 2022-08-23 13:30:00 Outpatient MOY HERNANDEZ [facility] [id number] [facility] 2022-08-08 15:30:00 2022-08-08 15:30:00 Outpatient R MOY SAVAGE [facility] [id number] [facility] 2020-06-13 16:15:00 2020-06-13 16:15:00 Outpatient GAYLE [facility] [id number] [facility] 2020-06-06 15:55:12 2020-06-06 23:59:00 [facility] [id number] [facility] 2020-06-06 16:00:00 2020-06-06 16:00:00 [facility] [id number] 2020-06-06 15:34:00 2020-06-06 15:49:00 [facility] [id number] [facility] 2020-06-06 00:00:00 2020-06-06 00:00:00 Orders Only Doctor Unassigned, [place] [facility] [id number] [facility] 2020-05-29 00:00:00 2020-05-29 00:00:00 Orders Only Doctor Unassigned, [place] [facility] [id number] [facility] Results Test Description Test Time Test Comments Results Result Co mments Source GLUCOSE BEDSIDE [id number] 13:09:00* Test Item Value Reference Range Interpretation Comme nts GLUCOSE BEDSIDE TESTING (anamaria t code = GLUBED) 85 mg/dL 70-110 N BASIC METABOLIC [id number] 12:19:00* Test Item Value Reference Range Interpretation [...] CA) 9.7 MG/DL 8.5-10.1 N CBC W/AUTO [id number] 12:06:00* Test Item Value Reference Range Interpretation [...] = NRBC#) 0.0 K/mm3 0.0-0.1 N URINALYSIS [id number] 12:00:00* Test Item Value Reference Range Interpretation [...] NEGATIVE Urine Specimen Type: Clean CatchUR HCG [id number] 12:00:00* Test Item Value Reference Range Interpretation Comme nts UR HCG QUAL (test code = HCGQLU) NEGATIVE NEGATIVE Urine Specimen Type: Clean CatchXR HAND <3 VW [id number] 21:43:26No sign of fracture or dislocation [facility] Notes Date/Time Note Provider Source 2023-09-23 18:56:00 [id number]/[id number]:56:00 [facility] ([facility])Brief Op NoteREPORT#:[id number] REPORT STATUS: SignedREPORT INITIALIZATION DATE:09/23/23 TIME:1855 PATIENT: JOSE RUIZ UNIT #: [id number]#: [id number] ROOM/BED:: 85 AGE: 37 SEX: F ATTEND: Ashley Rodriguez MDADM AUTHOR: Ashley Rodriguez MDREPT SERVICE DT/TIME: 09/23/231855* ALL edits or amendments must be made on the electronic/computer document * Op/Inv Proc Note - BriefPre-procedure diagnosis:pelviuc pain left complex ovarian cystPost-procedure diagnosis: pelvic pain, stage 4 endometriosis, adhesions to the ventral hernia meshProcedures performed:diagnostic laaproscopy, extensive lysis of adhesions, Robotic TLH bilateral salpingectomy, left oophorectomy adn endometrioma excision, endometriosis excision, cystoscopyPrimary Surgeon:Marivelt(s): joe Silavesthesia: general anesthesiaFindings:left ovarian endometrioma, left adhered to [...] count: correct Needle count: correct at 1914 RPT #: [id number] OF REPORT OPOperative [id number]:56:00L.[id number] ilable for patient [id number]:14:52 [facility]
[2023-10-07] MEDS ORDERED: NA CHLORIDE 0.9% 1,000 ML ONE ×2 (15:51→18:46)
[2023-10-07] MEDS ORDERED: ONDANSETRON 4 MG/2 ML VIAL ONE ×2 (15:51→21:42)
[2023-10-07 16:02] LABS: Absolute Lymphocytes (CBC) 3.8 K/uL (0.7-4.9); Hematocrit 41.2 % (36.0-45.0); Lymphocytes % 24.6 % (15.3-44.8); MCV 89.4 fL (80-100); MPV 7.6 fL (7.6-11.3); Platelets 476 thou/uL (152-406); RBC Red Blood Cell Count 4.61 M/uL (3.86-4.86)
[2023-10-07] MEDS ORDERED: MORPHINE 4 MG/ML SYR ONE ×2 (16:11→21:43)
[2023-10-07 16:18] LABS: Albumin 3.7 g/dL (3.4-5.0); Bilirubin Total 0.3 mg/dL (0.2-1.0); Potassium 3.5 mEq/L (3.5-5.1); Protein, Total 7.6 g/dL (6.4-8.2)
--- NOTE | 2023-10-07 17:47 | RAD REPORT ---
EXAM DESCRIPTION: CT - Abdomen Pelvis W Contrast - 10/07/2023 5:08 pm CLINICAL HISTORY: ABD PAIN COMPARISON: Abdomen Pelvis W Contrast dated 08/26/2022; Abdomen Pelvis W Contrast dated 07/08/20 17 TECHNIQUE: Thin cut axial CT imaging of the abdomen and pelvis was performed following intravenous a dministration of 100 mL Isovue 300. Multiplanar reformats were generated and reviewed. All CT scans are performed using dose optimization technique as appropriate and may include automated exposure control or mA/KV adjustment according to patient size. FINDINGS: No suspicious findings in the lung bases. The liver, spleen, adrenal glands, and pancreas show no suspicious findings. Gallbladder was surgical ly removed. Symmetric renal function is seen with no hydronephrosis or suspicious renal mass. No dilated bowel loops or bowel wall thickening. No free air or circumscribed fluid collections. No h ernia, mass or bulky lymphadenopathy. Sequelae of hysterectomy. Linear ill-defined hyperenhancement along the vaginal cuff. Mild localized mild free fluid in the pelvis. The urinary bladder is without significant finding. No suspicious bony findings. IMPRESSION: Linear ill-defined hyperenhancement along the vaginal cuff, favored to relate to recent postoperative changes. Mild free fluid in the pelvis, favored to be reactive, related to recent post surgical changes as well, without evidence of a localized fluid collection. No other acute intra-abdominal process.
--- NOTE | 2023-10-07 18:13 | EDPHYS ---
Physician Documentation [facility] Name: Maria Del Carmen Stokes Age: 38 yrs Sex: Female : 1985 Arrival Date: 10/07/2023 Time: 14:35 Bed 17 Private MD: ED Physician Osmin Lopez HPI: 10/07 14:56 This 38 yrs old Female presents to ER via Unassigned with complaints of Abdominal Pain, sb4 Fever. 15:08 The patient presents with abdominal pain right lower quadrant. Onset: The sb4 symptoms/episode began/occurred last night. The symptoms do not radiate. Associated signs and symptoms: Pertinent positives: fever, nausea. The symptoms are described as sharp. Modifying factors: The symptoms are alleviated by nothing, the symptoms are aggravated by pressure. The patient has experienced a previous episode, approximately 2 weeks ago. 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 - Social history:: Smoking status: Reported history of juuling and/or vaping. ROS: 18:27 Cardiovascular: Negative for chest pain, palpitations, and edema, sb4 18:27 Constitutional: Positive for fever, 18:27 Abdomen/GI: Positive for abdominal pain, 18:27 All other systems are negative, Exam: 18:27 Constitutional: This is a well developed, well nourished patient who is awake, alert, sb4 and in no acute distress. Head/Face: Normocephalic, atraumatic. Eyes: Extra-ocular motions intact. Periorbital areas with no swelling, redness, or edema. ENT: Mucous membranes moist. Cardiovascular: Regular rate and rhythm with a normal S1 and S2. Respiratory: Lungs have equal breath sounds bilaterally, clear to auscultation and percussion. No rales, rhonchi or wheezes noted. No increased work of breathing, no retractions or nasal flaring. Skin: Warm, dry with normal turgor. Normal color with no rashes, no lesions, and no evidence of cellulitis. MS/ Extremity: Pulses equal, no cyanosis. Neurovascular intact. Full, normal range of motion. Neuro: Awake and alert, GCS 15, oriented to person, place, time, and situation. Motor strength 5/5 in all extremities. Sensory grossly intact. 18:27 Abdomen/GI: Inspection: abdomen appears normal, Bowel sounds: normal, Palpation: soft, moderate abdominal tenderness, in the anterior aspect of right lateral abdomen and right lower quadrant, Vital Signs: 14:58 BP 125 / 86; Pulse 104; Resp 18; Temp 98.5(O); Pulse Ox 98% on R/A; Weight 58.97 kg; tl4 Height 5 ft. 1 in. ; Pain 7/10; 19:30 BP 120 / 102; Pulse 89; Resp 16 S; Pulse Ox 98% on R/A; jw7 20:30 BP 129 / 100; Pulse 82; Resp 15 S; Pulse Ox 97% on R/A; jw7 21:30 BP 129 / 94; Pulse 85; Resp 16 S; Pulse Ox 100% on R/A; jw7 22:30 BP 128 / 91; Pulse 80; Resp 16 S; Pulse Ox 100% on R/A; jw7 23:30 BP 126 / 94; Pulse 75; Resp 15 S; Pulse Ox 100% on R/A; jw7 10/08 00:30 BP 117 / 80; Pulse 72; Resp 14 S; Pulse Ox 99% on R/A; jw7 01:30 BP 116 / 89; Pulse 68; Resp 14 S; Pulse Ox 98% on R/A; jw7 02:30 BP 111 / 84; Pulse 73; Resp 15 S; Pulse Ox 98% on R/A; jw7 10/07 14:58 Body Mass Index 24.56 (58.97 kg, 154.94 cm) tl4 10/07 14:58 Pain Scale: Adult tl4 MDM: 10/07 14:55 Patient medically screened. sb4 18:01 ED course: no source of infection identified at this point. will obtain blood cultures sb4 and administer empiric antibiotics per ships or barges loader surgery. 18:11 Data reviewed: vital signs, nurses notes, lab test result(s), radiologic studies, I sb4 have discussed the patient's presentation/case with the attending Emergency Department Physician; and as a result, I will admit patient. 18:13 Management of patient was discussed with the following: Poured Concrete Wall Technician: HERBERTH Garay with Dr. gabi Rodriguez. 18:27 Differential diagnosis: appendicitis, diverticulitis, non-specific abd pain, sb4 Peritonitis, Pyelonephritis, Ureterolithiasis, urinary tract infection. 18:28 Counseling: I had a detailed discussion with the patient and/or guardian regarding the sb4 historical points, exam findings, and any diagnostic results supporting the discharge/admit diagnosis, lab results, radiology results, the need for further work-up and treatment in the hospital. 19:00 ED course: Tanisha KEVIN identified source of infection- suspected vaginal cuff cellulitis- sb4 at 1853. sepsis criteria met. blood cultures have already been obtained. will additionally obtain lactate, INR, and PTT. 10/07 15:06 Order name: CBC with Diff; Complete Time: 16:13 sb 10/07 15:06 Order name: CMP; Complete Time: 16:19 sb4 10/07 15:06 Order name: Lipase; Complete Time: 16:19 sb4 10/07 18:00 Order name: Blood Culture Adult (2) sb4 10/07 19:02 Order name: Lactate w/ 2H reflex if indic.; Complete Time: 20:40 sb4 10/07 19:02 Order name: PT-INR; Complete Time: 20:28 sb4 10/07 19:02 Order name: Ptt, Activated; Complete Time: 20:28 sb4 10/08 01:45 Order name: Basic Metabolic Panel EDWI 10/08 01:45 Order name: Basic Metabolic Panel EDWI 10/08 01:45 Order name: CBC with Automated Diff EDWI 10/08 01:45 Order name: CBC with Automated Diff EDWI 10/08 11:03 Order name: CBC with Automated Diff EDWI 10/08 11:10 Order name: Basic Metabolic Panel EDWI 10/07 15:06 Order name: CT Abd/Pelvis - IV Contrast Only; Complete Time: 17:49 sb4 10/08 01:45 Order name: CONS Physician Consult EDWI 10/07 15:06 Order name: IV Saline Lock; Complete Time: 15:49 sb4 10/07 15:06 Order name: Labs collected and sent; Complete Time: 15:49 sb4 Administered Medications: 16:00 Drug: NS 0.9% IV 1000 ml IV at 1 bolus Per protocol; 1000 mL bolus Route: IV; Rate: 1 ap3 bolus; Site: right antecubital; 10/08 01:04 Follow up: Response: No adverse reaction; IV Status: Completed infusion; IV Intake: jw7 1000ml 10/07 16:01 Drug: Ondansetron IVP 4 mg IVP once; over 2 minutes Route: IVP; Site: right antecubital;ap3 16:17 Follow up: Response: No adverse reaction 1 16:16 Drug: morphine IVP or IV 4 mg IVP once over 4 mins Route: IVP; Infused Over: 4 mins; ll1 Site: right antecubital; 10/08 01:03 Follow up: Response: No adverse reaction [facility] 10/07 18:58 Drug: NS 0.9% IV 1000 ml IV at 1 bolus Per protocol; 1000 mL bolus Route: IV; Rate: 1 ll1 bolus; Site: right antecubital; 10/08 01:04 Follow up: Response: No adverse reaction; IV Status: Completed infusion; IV Intake: jw7 1000ml 10/07 18:58 Drug: fentaNYL (PF) IVP 50 mcg IVP once Route: IVP; Site: right antecubital; ll1 10/08 01:04 Follow up: Response: No adverse reaction; Marked relief of symptoms 7 10/07 18:58 Drug: Clindamycin IVPB 900 mg IVPB once over 30 mins; (mix in 50 mL) Route: IVPB; ll1 Infused Over: 30 mins; Site: right antecubital; 10/08 01:05 Follow up: Response: No adverse reaction; IV Status: Completed infusion; IV Intake: [id number] 10/07 20:20 Drug: Gentamicin IVPB 2 mg/kg IVPB once over 30 mins; (mix in 100 mL NS) Route: IVPB; jw7 Infused Over: 30 mins; Site: right antecubital; 10/08 01:05 Follow up: Response: No adverse reaction; IV Status: Completed infusion; IV Intake: jw7 150ml 10/07 22:50 Drug: morphine IVP or IV 4 mg IVP once over 4 mins Route: IVP; Infused Over: 4 mins; jw7 Site: right antecubital; 10/08 01:05 Follow up: Response: No adverse reaction; Marked relief of symptoms 7 10/07 22:50 Drug: Ondansetron IVP 4 mg IVP once; over 2 minutes Route: IVP; Site: right antecubital;jw7 10/08 01:05 Follow up: Response: No adverse reaction 7 10/07 23:13 Drug: Ketorolac IVP 30 mg IVP once Route: IVP; Site: right antecubital; jw7 10/08 01:05 Follow up: Response: No adverse reaction; Marked relief of symptoms jw7 Disposition: 10/07 16:53 I was immediately available on-site in the Emergency Department for consultation in the ms3 care of the patient. Disposition Summary: 10/07/23 18:12 Hospitalization Ordered Notes: Hospitalization Status: Observation sb4 Provider: Jr Kerr sb4 Condition: Fair sb4 Problem: new sb4 Symptoms: are unchanged sb4 Bed/Room Type: Standard 4 Location: Telemetry/MedSurg (observation)(10/08/23 10:49) [facility] Room Assignment: 425(10/08/23 10:49) [facility] Diagnosis - RLQ abdominal pain, fever, leukocytosis sb4 Forms: - Medication Reconciliation Form sb4 - SBAR form sb4 - Leadership Thank You Letter sb4 Signatures: Dispatcher [employer] EDMS Alice Cochran RN RN [id number] Elda Mackenzie RN RN ll1 Osmin Lopez DO DO ms3 Gwen Alonzo RN RN 1 Elle River RN RN jw7 Krystal Russell RN RN kc6 Parvin Stoner PA-C PA-C sb4 Potepalov, Sergey, MD MD sp4 Dontrell Otero Tylor ty Corrections: (The following items were deleted from the chart) 18:14 18:01 ED course: no source of infection identified at this point. sb4 sb4 18:43 18:13 Management of patient was discussed with the following: Poured Concrete Wall Technician: HERBERTH Marie sb4 with Dr. Rodriguez. sb4 20:46 18:12 sb4 ty 20:46 20:46 214 ty ty 10/08 00:18 10/07 18:12 Telemetry/MedSurg (observation) sb4 vc1 10/08 00:18 10/07 20:46 ty vc1 10/08 00:10/07 15:06 Test, Urine+UC.LAB.BRZ ordered. EDMS EDMS 10/08 00:10/07 15:06 Urinalysis+U.LAB.BRZ ordered. EDMS EDMS 10/08 10:49 00:18 [facility] ER HOLD vc1 kc6 10:49 00:18 ERHOLD- vc1 kc6
--- NOTE | 2023-10-07 18:13 | ER ---
Nurse's Notes [facility] Name: Maria Del Carmen Stokes Age: 38 yrs Sex: Female : 1985 Arrival Date: 10/07/2023 Time: 14:35 Bed 17 Private MD: Diagnosis: RLQ abdominal pain, fever, leukocytosis Presentation: 10/07 14:58 Chief complaint: Patient states: Pt c/o low abdominal pain and fever since last night. tl4 Pt had hysterectomy on 09/23/23 and was admitted that night with "sepsis". Coronavirus screen: Vaccine status: Patient reports being unvaccinated. At this time, the client does not indicate any symptoms associated with coronavirus-19. Ebola Screen: Patient negative for fever greater than or equal to 101.5 degrees Fahrenheit, and additional compatible Ebola Virus Disease symptoms Patient denies exposure to infectious person. Patient denies travel to an Ebola-affected area in the 21 days before illness onset. No symptoms or risks identified at this time. Initial Sepsis Screen: Does the patient meet any 2 criteria? No. Patient's initial sepsis screen is negative. Does the patient have a suspected source of infection? No. Patient's initial sepsis screen is negative. Risk Assessment: Do you want to hurt yourself or someone else? Patient reports no desire to harm self or others. Onset of symptoms was October 06, 2023. 14:58 Method Of Arrival: Ambulatory tl4 14:58 Acuity: WILLIS 3 tl4 Triage Assessment: 15:01 General: Appears uncomfortable, Behavior is calm, cooperative. Pain: Complains of pain tl4 in abdomen. EENT: No deficits noted. No signs and/or symptoms were reported regarding the EENT system. Neuro: No deficits noted. Cardiovascular: No deficits noted. Denies chest pain, diaphoresis, lightheadedness, palpitations. Respiratory: No deficits noted. Denies cough, shortness of breath. GI: Reports lower abdominal pain, Patient currently denies diarrhea, nausea, vomiting. : No deficits noted. No signs and/or symptoms were reported regarding the genitourinary system. Derm: No deficits noted. No signs and/or symptoms reported regarding the dermatologic system. Musculoskeletal: No deficits noted. No signs and/or symptoms reported regarding the musculoskeletal system. 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 - Social history:: Smoking status: Reported history of juuling and/or vaping. Screenin:00 [facility] ED Fall Risk Assessment (Adult) History of falling in the last 3 months, jw7 including since admission No falls in past 3 months (0 pts) Score/Fall Risk Level 0 - 2 = Low Risk Oriented to surroundings, Maintained a safe environment, Educated pt \\T\\ family on fall prevention, incl call for assistance when getting out of bed, Assessed \\T\\ reinforced patient's understanding of fall precautions. Abuse screen: Denies threats or abuse. Denies injuries from another. Nutritional screening: No deficits noted. Tuberculosis screening: No symptoms or risk factors identified. Assessment: 16:17 Reassessment: No changes from previously documented assessment. Patient and/or family ll1 updated on plan of care and expected duration. Pain level reassessed. Patient is alert, oriented x 3, equal unlabored respirations, skin warm/dry/pink. 19:00 General: Appears in no apparent distress. comfortable, Behavior is calm, cooperative. jw7 19:00 Pain: Complains of pain in abdomen Pain does not radiate. Pain currently is 2 out of 10 jw7 on a pain scale. Quality of pain is described as crampy, Pain began suddenly, Is continuous. Neuro: Squires Agitation-Sedation Scale (RASS): 0 - Alert and Calm Level of Consciousness is awake, alert, obeys commands, Oriented to person, place, time, situation. Cardiovascular: Capillary refill < 3 seconds Clubbing of nail beds is absent JVD is absent Patient's skin is warm and dry. Respiratory: Airway is patent Trachea midline Respiratory effort is even, unlabored, Respiratory pattern is regular, symmetrical. GI: Abdomen is flat, non-distended, Bowel sounds present X 4 quads. Abd is soft Abdomen is tender to palpation in right lower quadrant Reports lower abdominal pain. : No deficits noted. No signs and/or symptoms were reported regarding the genitourinary system. EENT: No deficits noted. No signs and/or symptoms were reported regarding the EENT system. Derm: Skin is intact, is healthy with good turgor, Skin is dry, Skin is normal, Skin temperature is warm. Musculoskeletal: Circulation, motion, and sensation intact. Range of motion: intact in all extremities. 20:00 Reassessment: Patient appears in no apparent distress at this time. No changes from jw7 previously documented assessment. Patient and/or family updated on plan of care and expected duration. Pain level reassessed. Patient is alert, oriented x 3, equal unlabored respirations, skin warm/dry/pink. 21:00 Reassessment: Patient appears in no apparent distress at this time. No changes from jw7 previously documented assessment. Patient and/or family updated on plan of care and expected duration. Pain level reassessed. Patient is alert, oriented x 3, equal unlabored respirations, skin warm/dry/pink. 22:00 Reassessment: Patient appears in no apparent distress at this time. Patient and/or jw7 family updated on plan of care and expected duration. Pain level reassessed. Patient is alert, oriented x 3, equal unlabored respirations, skin warm/dry/pink. 23:00 Reassessment: Patient appears in no apparent distress at this time. Patient and/or jw7 family updated on plan of care and expected duration. Pain level reassessed. Patient is alert, oriented x 3, equal unlabored respirations, skin warm/dry/pink. 10/08 00:00 Reassessment: Patient appears in no apparent distress at this time. Patient and/or jw7 family updated on plan of care and expected duration. Pain level reassessed. Patient is alert, oriented x 3, equal unlabored respirations, skin warm/dry/pink. 01:00 Reassessment: Patient appears in no apparent distress at this time. Patient and/or jw7 family updated on plan of care and expected duration. Pain level reassessed. Patient is alert, oriented x 3, equal unlabored respirations, skin warm/dry/pink. 02:00 Reassessment: Patient appears in no apparent distress at this time. Patient and/or jw7 family updated on plan of care and expected duration. Pain level reassessed. Patient is alert, oriented x 3, equal unlabored respirations, skin warm/dry/pink. Vital Signs: 10/07 14:58 BP 125 / 86; Pulse 104; Resp 18; Temp 98.5(O); Pulse Ox 98% on R/A; Weight 58.97 kg; tl4 Height 5 ft. 1 in. ; Pain 7/10; 19:30 BP 120 / 102; Pulse 89; Resp 16 S; Pulse Ox 98% on R/A; jw7 20:30 BP 129 / 100; Pulse 82; Resp 15 S; Pulse Ox 97% on R/A; jw7 21:30 BP 129 / 94; Pulse 85; Resp 16 S; Pulse Ox 100% on R/A; jw7 22:30 BP 128 / 91; Pulse 80; Resp 16 S; Pulse Ox 100% on R/A; jw7 23:30 BP 126 / 94; Pulse 75; Resp 15 S; Pulse Ox 100% on R/A; jw7 10/08 00:30 BP 117 / 80; Pulse 72; Resp 14 S; Pulse Ox 99% on R/A; jw7 01:30 BP 116 / 89; Pulse 68; Resp 14 S; Pulse Ox 98% on R/A; jw7 02:30 BP 111 / 84; Pulse 73; Resp 15 S; Pulse Ox 98% on R/A; jw7 10/07 14:58 Body Mass Index 24.56 (58.97 kg, 154.94 cm) tl4 10/07 14:58 Pain Scale: Adult tl4 ED Course: 10/07 14:38 Patient arrived in ED. im 14:55 Parvin Stoner PA-C is PHCP. sb4 14:55 Osmin Lopez DO is Attending Physician. sb4 15:00 Triage completed. tl4 15:03 Arm band placed on left wrist. tl4 15:49 Initial lab(s) drawn, by me, sent to lab. Inserted saline lock: 22 gauge in right ap3 antecubital area, using aseptic technique. Blood collected. 16:09 Elda Mackenzie, BLAYNE is Primary Nurse. ll1 17:10 CT Abd/Pelvis - IV Contrast Only In Process Unspecified. EDMS 18:11 Jr Kerr MD is Hospitalizing Provider. sb4 18:30 First set of blood cultures drawn by me. em1 19:00 Patient has correct armband on for positive identification. Bed in low position. Call [facility] light in reach. 20:00 Provided Education on: need for admit. [facility] 10/08 02:29 Primary Nurse role handed off by Elda Mackenzie RN wm 03:08 No provider procedures requiring assistance completed. Patient admitted, IV remains in [facility] place. Administered Medications: 10/07 16:00 Drug: NS 0.9% IV 1000 ml IV at 1 bolus Per protocol; 1000 mL bolus Route: IV; Rate: 1 ap3 bolus; Site: right antecubital; 10/08 01:04 Follow up: Response: No adverse reaction; IV Status: Completed infusion; IV Intake: jw7 1000ml 10/07 16:01 Drug: Ondansetron IVP 4 mg IVP once; over 2 minutes Route: IVP; Site: right antecubital;ap3 16:17 Follow up: Response: No adverse reaction [facility] 16:16 Drug: morphine IVP or IV 4 mg IVP once over 4 mins Route: IVP; Infused Over: 4 mins; ll1 Site: right antecubital; 10/08 01:03 Follow up: Response: No adverse reaction [facility] 10/07 18:58 Drug: NS 0.9% IV 1000 ml IV at 1 bolus Per protocol; 1000 mL bolus Route: IV; Rate: 1 ll1 bolus; Site: right antecubital; 10/08 01:04 Follow up: Response: No adverse reaction; IV Status: Completed infusion; IV Intake: jw7 1000ml 10/07 18:58 Drug: fentaNYL (PF) IVP 50 mcg IVP once Route: IVP; Site: right antecubital; ll1 10/08 01:04 Follow up: Response: No adverse reaction; Marked relief of symptoms [facility] 10/07 18:58 Drug: Clindamycin IVPB 900 mg IVPB once over 30 mins; (mix in 50 mL) Route: IVPB; ll1 Infused Over: 30 mins; Site: right antecubital; 10/08 01:05 Follow up: Response: No adverse reaction; IV Status: Completed infusion; IV Intake: [id number] 10/07 20:20 Drug: Gentamicin IVPB 2 mg/kg IVPB once over 30 mins; (mix in 100 mL NS) Route: IVPB; jw7 Infused Over: 30 mins; Site: right antecubital; 10/08 01:05 Follow up: Response: No adverse reaction; IV Status: Completed infusion; IV Intake: jw7 150ml 10/07 22:50 Drug: morphine IVP or IV 4 mg IVP once over 4 mins Route: IVP; Infused Over: 4 mins; jw7 Site: right antecubital; 10/08 01:05 Follow up: Response: No adverse reaction; Marked relief of symptoms jw7 10/07 22:50 Drug: Ondansetron IVP 4 mg IVP once; over 2 minutes Route: IVP; Site: right antecubital;jw7 10/08 01:05 Follow up: Response: No adverse reaction jw7 10/07 23:13 Drug: Ketorolac IVP 30 mg IVP once Route: IVP; Site: right antecubital; jw7 10/08 01:05 Follow up: Response: No adverse reaction; Marked relief of symptoms jw7 Medication: 03:09 VIS not applicable for this client. jw7 Intake: 01:04 IV: 1000ml; Total: 1000ml. jw7 01:04 IV: 1000ml; Total: 2000ml. jw7 01:05 IV: 50ml; Total: 2050ml. jw7 01:05 IV: 150ml; Total: 2200ml. jw7 Outcome: 10/07 18:12 Decision to Hospitalize by Provider. sb4 10/08 03:08 Admitted to ER Hold. Please see [facility] for further documentation. jw7 Condition: stable Instructed on the need for admit, Demonstrated understanding of instructions, 12:47 Patient left the ED. kc6 Signatures: Dispatcher [employer] Avelino Stern em1 Alice Cochran RN RN perlita3 Elda Mackenzie RN RN ll1 Stephanie Tapia Jodi, RN RN jw7 Krystal Russell RN RN kc6 Parvin Stoner PA-C PA-C sb4 Omaira Gee Toni tl4
[2023-10-07] MEDS ORDERED: FENTANYL CITR 100 MCG/2 ML ONE (18:46)
[2023-10-07] MEDS ORDERED: CLINDAMYCIN 900MG/D5W 900 MG/50 ML IVPB IV ONE (18:47)
[2023-10-07] MEDS ORDERED: GENTAMICIN 80 MG/100 ML BAG 160 MG/200 ML BAG IV ONE (18:47)
[2023-10-07 20:27] LABS: Protime INR 1.13
[2023-10-07] MEDS ORDERED: KETOROLAC 30 MG/ML INJ ONE (22:56)
[2023-10-08] MEDS ORDERED: ACETAMINOPHEN 325 MG TABLET PO PRN (01:39)
[2023-10-08] MEDS ORDERED: ONDANSETRON 4 MG/2 ML VIAL IV PRN (01:39)
--- NOTE | 2023-10-08 01:44 | P.HP ---
Certification for Inpatient Patient admitted to: Inpatient With expected LOS: >2 Midnights Practitioner: I am a practitioner with admitting privileges, knowledge of patient current condition, hospital course, and medical plan of care. Services: Services provided to patient in accordance with Admission requirements found in Title 42 Section 412.3 of the Code of Federal Regulations Patient History Date of Service: 10/08/23 Reason for admission: Postoperative infection, abdominal pain. History of Present Illness: 38-year-old female patient was medical history significant for prediabetic state, history of hysterectomy who was coming to the ED with complaint of abdominal pain. She [place] labs [place] [id number] and imaging was not overtly concerning however because of post hysterectomy state she was admitted for inpatient care. Gynecology also consulted and the recommendation was to have patient started on IV antibiotic therapy of clindamycin and gentamicin. She denies overt episode of nausea, vomiting, diarrhea. Allergies codeine Allergy (Verified 10/08/23 03:07) Itching levofloxacin [From Levaquin] Allergy (Verified 09/24/23 05:27) Anaphylaxis Penicillins Allergy (Verified 09/24/23 05:27) Itching tramadol Allergy (Verified 09/24/23 05:27) Itching Home Medications: Tirzepatide [Mounjaro] 7.5 mg IM Q7D 09/24/23 - Past Medical/Surgical History Diabetic: No -: prediabetis -: cholecystectomy -: hysterectomy 09/23/2023 -: hernia repair - Social History Alcohol use: Yes Review of Systems General: Malaise Eyes: Unremarkable ENT: Unremarkable Respiratory: Unremarkable Cardiovascular: Unremarkable Gastrointestinal: Abdominal Pain Genitourinary: Unremarkable Musculoskeletal: Unremarkable Integumentary: Unremarkable Neurological: Unremarkable Lymphatics: Unremarkable Physical Examination - Physical Exam General: Alert, Oriented x3 HEENT: Atraumatic, Normocephalic Neck: Supple Respiratory: Normal air movement Cardiovascular: Regular rate/rhythm, Normal S1 S2 Gastrointestinal: Tenderness Musculoskeletal: No swelling Neurological: Normal speech, Normal strength at 5/5 x4 extr - Studies Laboratory Data (last 24 hrs) 10/07/23 10/07/23 10/07/23 20:08 15:47 15:47 WBC 15.40 H Hgb 14.2 Hct 41.2 Plt Count 476 H PT 12.4 INR 1.13 APTT 27.7 Sodium 136 Potassium 3.5 BUN 12 Creatinine 0.79 Glucose 88 Total Bilirubin 0.3 AST 10 L ALT 39 Alkaline Phosphatase 84 Lipase 53 Assessment and Plan - Plan Postoperative infection: Concerns for pelvic abscess/postoperative infectious process raised. White cell is elevated at 26 K. Will start empiric antibiotic therapy with clindamycin and gentamicin as per gynecology recommendation. Continue as needed pain control with Tylenol and Doucette. We will follow her kidney function, vital signs and cultures closely. Prediabetic second: We will continue outpatient medication Prophylaxis: Lovenox for DVT prophylaxis CODE STATUS: Full code Disposition: We will treat postoperative infection and she will be evaluated by feller machine operator and she will be discharged once cleared by gynecology service for outpatient care. - Advance Directives Does patient have a Living Will: No Does patient have a Durable POA for Healthcare: No
[2023-10-08] MEDS: NA CHLORIDE 0.9% 1,000 ML IV SCH ×2 (02:00→13:58)
[2023-10-08 02:57] VITALS: BMI 24.5
[2023-10-08] MEDS ORDERED: GENTAMICIN 80 MG/100 ML BAG 80 MG/100 ML BAG IV SCH (03:45)
[2023-10-08] MEDS: CLINDAMYCIN 600MG/D5W 50 ML IV SCH ×3 (05:05→19:53)
[2023-10-08] MEDS ORDERED: HYDROCODONE/APAP 7.5/325 MG TAB ONE (05:25)
[2023-10-08] MEDS ORDERED: CLINDAMYCIN 600MG/D5W 50 ML IV ONE ×2 (05:26→11:42)
[2023-10-08] MEDS ORDERED: NA CHLORIDE 0.9% 1,000 ML ONE (05:26)
[2023-10-08] MEDS: HYDROCODONE/APAP 7.5/325 MG TAB PO PRN ×2 (05:30→18:38)
[2023-10-08] MEDS: GENTAMICIN 100 MG/100 ML BAG 100 ML IV SCH ×3 (05:30→19:54)
[2023-10-08] MEDS ORDERED: GENTAMICIN 100 MG/100 ML BAG 100 ML IV ONE (06:00)
[2023-10-08] MEDS ORDERED: INFLUENZA VACCINE (for 6+ mo) 0.5 ML DOSE IMVAC ONE (08:00)
--- NOTE | 2023-10-08 08:27 | P.CNS ---
Date of Consult: 10/07/23 Reason for Consult: Post-op patient with pelvic pain Chief Complaint: Postoperative infection, abdominal pain. History of Present Illness: Lower pelvic pain started Saturday evening, noticed mild spotting with wiping. Denies any increase in activity. Saturday morning woke up with continued pain and had temp up to 101. Came to ER as pain would not improve. Labs WBC [address] showed Allergies codeine Allergy (Verified 10/08/23 03:07) Itching levofloxacin [From Levaquin] Allergy (Verified 09/24/23 05:27) Anaphylaxis Penicillins Allergy (Verified 09/24/23 05:27) Itching tramadol Allergy (Verified 09/24/23 05:27) Itching Home Medications: Tirzepatide [Mounjaro] 7.5 mg IM Q7D 09/24/23 - Past Medical/Surgical History Diabetic: No -: prediabetis -: cholecystectomy -: hysterectomy 09/23/2023 -: hernia repair - Social History Smoking Status: Current every day smoker Alcohol use: Yes Place of Residence: Home Physical Examination Temp Pulse Resp BP Pulse Ox 98.4 F 79 15 109/84 97 10/08/23 05:10 10/08/23 05:10 10/08/23 06:30 10/08/23 05:10 10/08/23 06:30 General: Alert, In no apparent distress HEENT: Atraumatic, Normocephalic Neck: Supple Cardiovascular: No edema, Normal pulses Gastrointestinal: Non-distended, No ascites, No masses, No guarding, Tenderness (throughout lower pelvis) Musculoskeletal: No swelling Integumentary: No rashes, No breakdown Neurological: Normal speech, Normal affect Laboratory Data (last 24 hrs) 10/07/23 10/07/23 10/07/23 20:08 15:47 15:47 WBC 15.40 H Hgb 14.2 Hct 41.2 Plt Count 476 H PT 12.4 INR 1.13 APTT 27.7 Sodium 136 Potassium 3.5 BUN 12 Creatinine 0.79 Glucose 88 Total Bilirubin 0.3 AST 10 L ALT 39 Alkaline Phosphatase 84 Lipase 53 Conclusions/Impression: 1. Pelvic pain: 2 weeks post op rTLH/BS,L oophrecetomy, endometrioma excision. Pain all across lower pelvis. Suspect cuff cellulitis. Recommend admission and start IV abx with clindamycin/gentamycin due to patient's PCN allergy. Pain well controlled. 2. Leukocytosis: WBC at 15. IV abx started. Repeat CBC in am. 3. Nicotine dependence: Hindrance to post op healing. Recommend cessation. Case discussed with Dr. Rodriguez and ER HERBERTH Melendrez.
[2023-10-08] MEDS: ENOXAPARIN 40 MG/0.4 ML SQ SCH (09:33)
[2023-10-08 10:56] LABS: Absolute Lymphocytes (CBC) 2.9 K/uL (0.7-4.9); Hematocrit 34.2 % (36.0-45.0); Lymphocytes % 31.4 % (15.3-44.8); MCV 90.2 fL (80-100); MPV 8.1 fL (7.6-11.3); Platelets 392 thou/uL (152-406)
--- NOTE | 2023-10-08 12:52 | P.PN ---
Date of Service: 10/08/23 Subjective: Feeling a little better today abdominal pain slowly improving no acute events overnight afebrile ROS: 10 point ROS as noted above, otherwise negative Physical Exam: GEN: Alert, oriented, NAD HEENT: Normal conjunctiva, sclera anicteric CV: Regular rate and rhythm, no edema Pulm: Nonlabored respirations on room air, clear bilaterally ABD: Soft, moderate lower abdominal / pelvic tenderness, nondistended Neuro: Normal speech, normal affect vitals reviewed Problem List: Pelvic pain, secondary to suspected vaginal cuff cellulitis s/p recent hysterectomy 09/23/[address] Rodriguez consulted CT abdomen (10/07): Linear ill-defined hyperenhancement along the vaginal cuff, favored to relate to recent postoperative changes. Mild free fluid in the pelvis, favored to be reactive, Without evidence of a localized fluid collection suspect vaginal cuff cellulitis continue empiric gentamicin / clindamycin given PCN allergy afebrile, leukocytosis resolved PRN analgesics / antiemetics repeat labs in AM follow blood cultures VTE: Lovenox Code: Full Dispo: Home, ~2 days
--- NOTE | 2023-10-08 16:56 | P.PN ---
Subjective Date of Service: 10/08/23 Chief Complaint: Postoperative infection, abdominal pain. Subjective: Improving (Pain almost completely resolved today. Denies any bleeding or discharge.) Physical Examination - Vital Signs Temperature: 98.8 F Blood Pressure: 138/67 Pulse: 84 Respirations: 18 Pulse Ox (%): 99 - Physical Exam General: Alert, In no apparent distress, Oriented x3 HEENT: Atraumatic, Normocephalic Neck: Supple Cardiovascular: No edema Gastrointestinal: Soft and benign, Non-distended, No tenderness, No masses, No rebound, No guarding Musculoskeletal: No swelling Integumentary: No rashes, No breakdown Neurological: Normal speech - Studies Laboratory Data (last 24 hrs) 10/07/23 20:08 PT 12.4 INR 1.13 APTT 27.7 Assessment And Plan - Plan 1. Pelvic pain: 2 wks post op rTLH/BS, L oophrectomy, endometrioma excision. CT showed ill-defined hyperenhancement along vaginal cuff, mild free fluid in pelvis. Pain much improved today and well controlled. Suspected cuff cellulitis being treated with IV clindamycin/gentamycin. Continue PO pain meds prn. 2. Leukocytosis: CT findings as above, suspected vaginal cuff cellulitis. WBC back in normal range today. Continue IV abx for another 24 hours. Likely plan to discharge tomorrow with PO abx. 3. Nicotine dependence: hindrance to post op healing, cessation recommended. Case discussed with Dr. Rodriguez.
[2023-10-09] MEDS: NA CHLORIDE 0.9% 1,000 ML IV SCH (01:40)
[2023-10-09] MEDS: GENTAMICIN 100 MG/100 ML BAG 100 ML IV SCH ×2 (04:40→12:32)
[2023-10-09] MEDS: CLINDAMYCIN 600MG/D5W 50 ML IV SCH ×3 (04:40→19:42)
[2023-10-09 06:24] LABS: Hematocrit 36.7 % (36.0-45.0); Lymphocytes % 29.7 % (15.3-44.8); MCV 90.2 fL (80-100); MPV 7.7 fL (7.6-11.3); Platelets 417 thou/uL (152-406); RBC Red Blood Cell Count 4.07 M/uL (3.86-4.86)
[2023-10-09 06:33] LABS: Magnesium 2.1 mg/dL (1.6-2.4); Potassium 3.8 mEq/L (3.5-5.1)
[2023-10-09] MEDS: ENOXAPARIN 40 MG/0.4 ML SQ SCH (07:25)
--- NOTE | 2023-10-09 12:12 | P.PN ---
Date of Service: 10/09/23 Subjective: Feeling better today abdominal pain resolved afebrile no new / worsening problems ROS: 10 point ROS as noted above, otherwise negative Physical Exam: GEN: Alert, oriented, NAD HEENT: Normal conjunctiva, sclera anicteric CV: Regular rate and rhythm, no edema Pulm: Nonlabored respirations on room air, clear bilaterally ABD: Soft, moderate lower abdominal / pelvic tenderness, nondistended Neuro: Normal speech, normal affect vitals reviewed Problem List: Pelvic pain, secondary to suspected vaginal cuff cellulitis s/p recent hysterectomy 09/23/[address] Rodriguez consulted CT abdomen (10/07): Linear ill-defined hyperenhancement along the vaginal cuff, favored to relate to recent postoperative changes. Mild free fluid in the pelvis, favored to be reactive, Without evidence of a localized fluid collection suspect vaginal cuff cellulitis continue empiric gentamicin / clindamycin given PCN allergy will discuss with Dr. rodrigeuz deescalating abx to PO. afebrile, leukocytosis resolved PRN analgesics / antiemetics follow blood cultures VTE: Lovenox Code: Full Dispo: Home, anticipate discharge later this afternoon vs tomorrow morning pending final OBGYN recommendations
[2023-10-09 12:32] VITALS: O2SAT 98
--- NOTE | 2023-10-09 16:59 | P.DS ---
Admission Date: 10/08/23 Discharge Date: 10/09/23 Disposition: ROUTINE DISCHARGE Discharge Condition: GOOD Reason for Admission: Postoperative infection, abdominal pain. Consultations: OBGYN - Dr. Rodriguez Brief History of Present Illness: 38 yo F, PMH: prediabetes, history of hysterectomy who was coming to the ED with complaint of abdominal pain. She [place] labs [place] [id number] and imaging was not overtly concerning however because of post hysterectomy state she was admitted for inpatient care. Gynecology also consulted and the recommendation was to have patient started on IV antibiotic therapy of clindamycin and gentamicin. She denies overt episode of nausea, vomiting, diarrhea. Hospital Course: Problem List: Pelvic pain, secondary to suspected vaginal cuff cellulitis s/p recent hysterectomy 09/23/23 Nicotine dependence Patient presented with lower abdominal pain. CT abdomen noted Linear ill-defined hyperenhancement along the vaginal cuff, concerning for vaginal cuff cellulitis. White count 15.4 on admission. Patient noted to recently have hysterectomy on 09/23/23. Dr. Rodriguez - OBGYN was consulted. Patient was given 2 days of empiric gentamicin / clindamycin given that patient has a PCN allergy and had improvement of her symptoms. Blood cultures without growth since 10/07. Patient was feeling better, abdominal pain resolved, remained afebrile, leukocytosis resolved, and was deemed stable for discharge. Patient is to complete 10 more days of Clindamycin. Advised to follow up with Dr. Rodriguez. Patient reported having appointment already scheduled for early next week. Medications: Clindamycin 450mg three times daily x 10 days Follow up: PCP 3-[address] Rodriguez next week as previously scheduled Physical Exam: GEN: Alert, oriented, NAD HEENT: Normal conjunctiva, sclera anicteric CV: Regular rate and rhythm, no edema Pulm: Nonlabored respirations on room air, clear bilaterally ABD: Soft, mild lower abdominal / pelvic tenderness, nondistended Neuro: Normal speech, normal affect Vital Signs/Physical Exam: Temp Pulse Resp BP Pulse Ox 98.5 F 87 15 122/68 98 10/09/23 12:00 10/09/23 12:00 10/09/23 12:00 10/09/23 12:00 10/09/23 12:00 Laboratory Data at Discharge: WBC 10.10 thou/uL (4.3-10.9) 10/09/23 05:42 Hgb 12.6 g/dL (12.0-15.0) 10/09/23 05:42 Hct 36.7 % (36.0-45.0) 10/09/23 05:42 Plt Count 417 thou/uL (152-406) H 10/09/23 05:42 PT 12.4 SECONDS (9.5-12.5) 10/07/23 20:08 INR 1.13 10/07/23 20:08 APTT 27.7 SECONDS (24.3-36.9) 10/07/23 20:08 Sodium 137 mEq/L (136-145) 10/09/23 05:42 Potassium 3.8 mEq/L (3.5-5.1) 10/09/23 05:42 BUN 7 mg/dL (7-18) 10/09/23 05:42 Creatinine 0.70 mg/dL (0.55-1.02) 10/09/23 05:42 Glucose 91 mg/dL (74-106) 10/09/23 05:42 Magnesium 2.1 mg/dL (1.6-2.4) 10/09/23 05:42 Total Bilirubin 0.3 mg/dL (0.2-1.0) 10/07/23 15:47 AST 10 U/L (15-37) L 10/07/23 15:47 ALT 39 U/L (13-56) 10/07/23 15:47 Alkaline Phosphatase 84 U/L (45-117) 10/07/23 15:47 Lipase 53 U/L (13-75) 10/07/23 15:47 Home Medications: Tirzepatide [Mounjaro] 7.5 mg IM Q7D 09/24/23 clindamycin HCL [Clindamycin HCl] 3 tab PO TID 10 Days #90 cap 10/09/23 New Medications: clindamycin HCL [Clindamycin HCl] 3 tab PO TID 10 Days #90 cap Physician Discharge Instructions: Patient presented with lower abdominal pain. CT abdomen noted Linear ill-defined hyperenhancement along the vaginal cuff, concerning for vaginal cuff cellulitis. White count 15.4 on admission. Patient noted to recently have hysterectomy on 09/23/23. Dr. Rodriguez - OBGYN was consulted. Patient was given 2 days of empiric gentamic in / clindamycin given that patient has a PCN allergy and had improvement of her symptoms. Blood cultures without growth since 10/07. Patient was feeling better, abdominal pain resolved, remained afebrile, leukocytosis resolved, and was deemed stable for discharge. Patient is to complete 10 more days of Clindamycin. Advised to follow up with Dr. Rodriguez. Patient reported having appointment already scheduled for early next week. Medications: Clindamycin 450mg three times daily x 10 days Follow up: PCP 3-[address] Rodriguez next week as previously scheduled Followup: Ashley Rodriguez MD [ACTIVE - CAN ADMIT] - 1 Week SLAVA TERRELL [Primary Care Provider] - 2-3 Days Time spent managing pt's care (in minutes): 45
[2023-10-09 20:23] VITALS: BP 126/81; TEMP 98.3
[2023-10-09] MEDS ORDERED: GENTAMICIN 100 MG/100 ML BAG 100 ML IV SCH (21:00)
== END 2023-10-09 21:17 | disposition home or self-care (01) | DRG 863 ==
LOC: ER 14:35 → ERHOLD 10-08 01:39 → 4TH 10-08 10:55
PROVIDERS: ADMIT Internal Medicine Nephrology; ATTEND Hospitalist
DX: T81.43XA Infection following a procedure, organ and space surgical site, initial encounter (principal); N73.0 Acute parametritis and pelvic cellulitis; R73.03 Prediabetes; F17.200 Nicotine dependence, unspecified, uncomplicated; Z88.5 Allergy status to narcotic agent; Z88.0 Allergy status to penicillin; Z88.1 Allergy status to other antibiotic agents; Z90.49 Acquired absence of other specified parts of digestive tract; Z90.710 Acquired absence of both cervix and uterus; Y83.8 Other surgical procedures as the cause of abnormal reaction of the patient, or of later complication, without mention of misadventure at the time of the procedure
CPT/HCPCS: 36415; 74177; 80048; 80053; 80170; 83605; 83690; 83735; 85025; 85610; 85730; 87040; J1580; J1650; J2405; J3010; J7030; Q9967

== ENCOUNTER 2023-11-20 10:52 | Inpatient (IN) | payer BC ==
--- OUTSIDE RECORDS SUMMARY | 2023-11-20 13:52 | XMS REPORT | Continuity of Care Document ---
Author Name Unknown Address [address] [facility] [address] [place] [address] [facility] thconnect Address [address] [place] [address] Care Team Providers Care Small Electric Engine Technician Name Role Phone PCP, PATIENT DOES NOT HAVE A Primary Care Physic abbi Unavailable GC_GCBZW_Michael_S Attending Clinician UnavailAshley Henriquez Attending Clinician UnavailJennifer Latham Attending Clinician Unavailable JOCELYN TORREZ Attending Clinician Unavailable Jocelyn Torrez MD Attending Clinician Mack Pack Attending Clinician Unavailable MOY SAVAGE Attending Clinician UnavailMYO Garcia Attending Clinician Unavaila ble LOPEZ, GAYLE S Attending Clinician Unavailable Gayle Davis S Attending Clinician Doctor Unassigned, [place] Attending Clinician U navailable GC_GCBZW_Michael_S Admitting Clinician UnavailAshley Henriquez Admitting Clinician Unavaila Jennifer Gore Admitting Clinician Unavailable JOCELYN TORREZ Admitting Clinician Unavailable Mack Pack Admitting Clinician Unavailable Payers Payer Name Policy Type Policy Number Effective Date Expirati on Date Source [place] [id number] 2019 00:00:00 [place] [id number] 2008 00:00:00 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 Problem Active 3-12 00:00: 00 [facility] Atrophic vaginitis Atrophic Vaginitis Problem Active 3-12 00:00: 00 [facility] Tobacco dependence syndrome Tobacco Dependence Syndrome Problem Active 2-21 00:00: 00 [facility] Menopausal syndrome Menopausal Syndrome Problem Active 2-21 00:00: 00 [facility] Thrombocyt osis Thrombocyt osis Problem Active 2022-09 2-14 00:00: 00 [facility] Leukocytos is Leukocytos is Problem Active 2022-09 2-11 00:00: 00 [facility] Nicotine dependence Nicotine Dependence Problem Active 2022-09 2-11 00:00: 00 [facility] Pain in pelvis Pain in Pelvis Problem Active 2022-09 2-11 00:00: 00 [facility] Prediabete s Prediabete s Problem Active 2022-09 2-11 00:00: 00 [facility] Cyst of left ovary Cyst of Left Ovary Problem Active 2022-09 2-11 00:00: 00 [facility] Cyst of ovary Cyst of Ovary Problem Active 2022-09 0-10 00:00: 00 [facility] Acute postoperat carina abdominal pain Acute postoperat carina abdominal pain Disease Active 7 00:00: 00 [facility] Migraines Migraines Disease Active 10-30 00:00: 00 [facility] Tobacco use disorder Tobacco use disorder Disease Active 10-30 00:00: 00 [facility] Allergies, Adverse Reactions, Alerts Allergy Name Allergy Type Status Severity Reaction(s) Onset Date Inactive Date Treating Clinician Comments Source LEVOFLOX ACIN DRUG INGREDI Active N/V 00:00: 00 [facility] Levoflox acin Propensi ty to adverse reaction s Active Nausea and/or Vomiting 00:00: 00 [facility] Penicill ins DA Active [place] RSAH 10-21 00:00: 00 [facility] levoflox acin DA Active U THROAT SWELLING 10-21 00:00: 00 [facility] Penicill ins DA Active SV HIVES 09-20 00:00: 00 [facility] codeine DA Active MO VOMITING - 00:00: 00 [facility] acetamin ophen DA Active MO VOMITING 09-20 00:00: 00 [facility] tramadol DA Active MO VOMITING 09-20 00:00: 00 [facility] levoflox acin DA Active MO VOMITING 09-20 00:00: 00 [facility] Penicill ins Propensi ty to adverse reaction s Active Itching 10-30 00:00: 00 [facility] PENICILL INS Drug Class Active ITCHING 10-30 00:00: 00 [facility] Penicill ins Propensi ty to adverse reaction s Active Itching 10-30 00:00: 00 [facility] No Known Drug Intolera nces DA Active U 02-09 00:00: 00 [facility] No Known Contrast Allergie s DA Active U 02-06 00:00: 00 [facility] No Known Drug Allergie s DA Active U 02-06 00:00: 00 [facility] No Known Other Allergie s DA Active U 02-06 00:00: 00 [facility] LICORICE DA Active U 02-06 00:00: 00 [facility] RASPBERR IES DA Active U 02-06 00:00: 00 [facility] Levoflox acin Allergy to substanc e Active Vomiting [facility] PENICILL INS Allergy to substanc e Active [facility] Tramadol Allergy to substanc e Active Nausea [facility] Social History Social Habit Start Date Stop Date Quantity Comments Source Exposure to SARS-CoV-2 (event) Not sure [facility] History of tobacco use Cigarette Smoker [facility] Sexual orientation U [facility] History of Social function 2020-06-06 00:00:00 2020-06-06 00:00:00 [facility] Alcohol intake 2020-06-06 00:00:00 2020-06-06 00:00:00 Current drinker of alcohol (finding) [facility] Alcohol Comment 2013-10-30 00:00:00 2013-10-30 00:00:00 occasionally [facility] Cigarettes smoked current (pack per day) - Reported 2013-10-30 00:00:00 2013-10-30 00:00:00 [facility] Cigarette pack-years 2013-10-30 00:00:00 2013-10-30 00:00:00 [facility] Tobacco use and exposure 2013-10-30 00:00:00 2013-10-30 00:00:00 Smokeless tobacco non-user [facility] Sex Assigned At 1985 00:00:00 1985 00:00:00 [facility] Smoking Status Start Date Stop Date Source Former Smoker [facility] Smokes tobacco daily 2013-10-30 00:00:00 [facility] Medications Ordered Medication Name Filled Medication Name Start Date Stop Date Current Medication? Ordering Clinician Indication Dosage Frequency Signature (SIG) Comments Components Source ondansetron (ZOFRAN (PF)) injection 4 mg 11-07 05:15: 00 11-07 05:06 :00 No 4mg 4 mg, Slow IV Push, ONCE, 1 dose, On Adore 11/07/23 at 2315, BILL [facility] FENTanyl PF (SUBLIMAZE (PF)) injection 75 mcg 11-07 05:00: 00 11-07 04:57 :00 No 75ug 75 mcg, Slow IV Push, ONCE, 1 dose, On Adore 11/07/23 at 2300, STAT [facility] NaCl 0.9% (NS) bolus infusion 1,000 mL 11-07 03:45: 00 11-07 04:45 :00 No 1000mL at 999 mL/hr, 1,000 mL, IV Infusion, ONCE, 1 dose, On Adore 11/07/23 at 2145, STAT [facility] morpHINE (4 mg/mL) injection 4 mg 11-07 03:30: 00 11-07 03:27 :00 No 4mg 4 mg, Slow IV Push, ONCE, 1 dose, On Adore 11/07/23 at 2130, STAT [facility] clindamycin in 5 % dextrose (CLEOCIN) 900 mg/50 mL IV piggyback RTU 900 mg 11-07 03:15: 00 11-07 03:49 :00 No 900mg 900 mg, IV Piggyback, ONCE, 1 dose, On Adore 11/07/23 at 2115, Administer over 30 Minutes, 50 mL
Reas on for Anti-Infec tive: Documented Infection< br>Documen kathrine Infection Site: Pelvic<br& gt;Duratio n of Therapy: Other (see Comments)< br>Restric kathrine use approved by: ED PROVIDER [facility] gentamicin 150 mg in NaCl 0.9% (NS) 11-07 02:45: 00 11-07 03:49 :00 No 150mg 150 mg, IV Piggyback, ONCE, 1 dose, On Adore 11/07/23 at 2045, STAT
Re ason for Anti-Infec tive: Documented Infection< br>Documen kathrine Infection Site: Pelvic
Duration of Therapy: Other (see Comments) [facility] iopamidol (ISOVUE 370-500 mL) injection 100 mL 11-07 02:00: 00 11-07 02:00 :00 No [id number] 100mL 100 mL, Intravenou s, ONCE, 1 dose, On Adore 11/07/23 at 2000, Routine [facility] morpHINE (4 mg/mL) injection 4 mg 11-07 01:45: 00 11-07 01:35 :00 No 4mg 4 mg, Slow IV Push, ONCE, 1 dose, On Adore 11/07/23 at 1945, STAT [facility] NaCl 0.9% (NS) bolus infusion 1,000 mL 11-07 00:15: 00 11-07 02:16 :00 No 1000mL at 999 mL/hr, 1,000 mL, IV Infusion, ONCE, 1 dose, On Adore 11/07/23 at 1815, STAT [facility] FENTanyl PF (SUBLIMAZE (PF)) injection 75 mcg 11-07 00:15: 00 23:52 :00 No 75ug 75 mcg, Slow IV Push, ONCE, 1 dose, On Adore 11/07/23 at 1815, STAT [facility] ondansetron (ZOFRAN (PF)) injection 4 mg 11-07 00:15: 00 23:52 :00 No 4mg 4 mg, Slow IV Push, ONCE, 1 dose, On Adore 11/07/23 at 1815, BILL [facility] ibuprofen 600 mg tablet 2017-09 00:00: 00 Yes 600mg Take 1 tablet by mouth every 6 (six) hours as needed for Pain (scale 4-6). [facility] ibuprofen 600 mg tablet 2017-09 00:00: 00 Yes 600mg Take 1 tablet by mouth every 6 (six) hours as needed for Pain (scale 4-6). [facility] ibuprofen 600 mg tablet 2017-09 00:00: 00 Yes 600mg Take 1 tablet by mouth every 6 (six) hours as needed for Pain (scale 4-6). [facility] ibuprofen 600 mg tablet 2017-09 00:00: 00 Yes 600mg Take 1 tablet by mouth every 6 (six) hours as needed for Pain (scale 4-6). [facility] ibuprofen 600 mg tablet 2017-09 00:00: 00 Yes 600mg Take 1 tablet by mouth every 6 (six) hours as needed for Pain (scale 4-6). [facility] ibuprofen 600 mg tablet 2017-09 00:00: 00 Yes 600mg Take 1 tablet by mouth every 6 (six) hours as needed for Pain (scale 4-6). [facility] amoxicillin 875 mg-potassiu m clavulanate 125 mg tablet TAKE ONE (1) TABLET(S) BY MOUTH EVERY TWELVE HOURS. amoxicillin 875 mg-potassiu m clavulanate 125 mg tablet TAKE ONE (1) TABLET(S) BY MOUTH EVERY TWELVE HOURS. No amoxicilli n 875 mg-potassi um clavulanat e 125 mg tablet TAKE ONE (1) TABLET(S) BY MOUTH EVERY TWELVE HOURS. [facility] estradiol 0.01% (0.1 mg/gram) vaginal cream Insert 0.5 g every day by vaginal route at bedtime for 30 days. estradiol 0.01% (0.1 mg/gram) vaginal cream Insert 0.5 g every day by vaginal route at bedtime for 30 days. No estradiol 0.01% (0.1 mg/gram) vaginal cream Insert 0.5 g every day by vaginal route at bedtime for 30 days. [facility] ibuprofen 800 mg tablet TAKE ONE (1) TABLET(S) BY MOUTH THREE TIMES A DAY NEEDED FOR PAIN. ibuprofen 800 mg tablet TAKE ONE (1) TABLET(S) BY MOUTH THREE TIMES A DAY NEEDED FOR PAIN. No ibuprofen 800 mg tablet TAKE ONE (1) TABLET(S) BY MOUTH THREE TIMES A DAY NEEDED FOR PAIN. [facility] metronidazo le 500 mg tablet Take 1 tablet every 12 hours by oral route for 7 days. metronidazo le 500 mg tablet Take 1 tablet every 12 hours by oral route for 7 days. No metronidaz ole 500 mg tablet Take 1 tablet every 12 hours by oral route for 7 days. [facility] Tylenol 325 mg capsule Take as needed by oral route. Tylenol 325 mg capsule Take as needed by oral route. No Tylenol 325 mg capsule Take as needed by oral route. [facility] amoxicillin 875 mg-potassiu m clavulanate 125 mg tablet TAKE ONE (1) TABLET(S) BY MOUTH EVERY TWELVE HOURS. amoxicillin 875 mg-potassiu m clavulanate 125 mg tablet TAKE ONE (1) TABLET(S) BY MOUTH EVERY TWELVE HOURS. No amoxicilli n 875 mg-potassi um clavulanat e 125 mg tablet TAKE ONE (1) TABLET(S) BY MOUTH EVERY TWELVE HOURS. [facility] estradiol 0.01% (0.1 mg/gram) vaginal cream INSERT 0.5 GRAM VAGINALLY EVERY DAY AT BEDTIME estradiol 0.01% (0.1 mg/gram) vaginal cream INSERT 0.5 GRAM VAGINALLY EVERY DAY AT BEDTIME No estradiol 0.01% (0.1 mg/gram) vaginal cream INSERT 0.5 GRAM VAGINALLY EVERY DAY AT BEDTIME [facility] ibuprofen 800 mg tablet TAKE ONE (1) TABLET(S) BY MOUTH THREE TIMES A DAY NEEDED FOR PAIN. ibuprofen 800 mg tablet TAKE ONE (1) TABLET(S) BY MOUTH THREE TIMES A DAY NEEDED FOR PAIN. No ibuprofen 800 mg tablet TAKE ONE (1) TABLET(S) BY MOUTH THREE TIMES A DAY NEEDED FOR PAIN. [facility] metronidazo le 500 mg tablet Take 1 tablet every 12 hours by oral route for 7 days. metronidazo le 500 mg tablet Take 1 tablet every 12 hours by oral route for 7 days. No metronidaz ole 500 mg tablet Take 1 tablet every 12 hours by oral route for 7 days. [facility] Mounjaro 7.5 mg/0.5 mL subcutaneou s pen injector ADMINISTER 7.5 MG UNDER THE SKIN WEEKLY Mounjaro 7.5 mg/0.5 mL subcutaneou s pen injector ADMINISTER 7.5 MG UNDER THE SKIN WEEKLY No Mounjaro 7.5 mg/0.5 mL subcutaneo us pen injector ADMINISTER 7.5 MG UNDER THE SKIN WEEKLY [facility] Tylenol 325 mg capsule Take as needed by oral route. Tylenol 325 mg capsule Take as needed by oral route. No Tylenol 325 mg capsule Take as needed by oral route. [facility] amoxicillin 875 mg-potassiu m clavulanate 125 mg tablet TAKE 1 TABLET BY MOUTH EVERY 12 HOURS amoxicillin 875 mg-potassiu m clavulanate 125 mg tablet TAKE 1 TABLET BY MOUTH EVERY 12 HOURS No amoxicilli n 875 mg-potassi um clavulanat e 125 mg tablet TAKE 1 TABLET BY MOUTH EVERY 12 HOURS [facility] fluconazole 150 mg tablet fluconazole 150 mg tablet No fluconazol e 150 mg tablet [facility] ibuprofen ibuprofen No ibuprofen [facility] Mounjaro 10 mg/0.5 mL subcutaneou s pen injector ADMINISTER 10 MG UNDER THE SKIN WEEKLY Mounjaro 10 mg/0.5 mL subcutaneou s pen injector ADMINISTER 10 MG UNDER THE SKIN WEEKLY No Mounjaro 10 mg/0.5 mL subcutaneo us pen injector ADMINISTER 10 MG UNDER THE SKIN WEEKLY [facility] estradiol 0.01% (0.1 mg/gram) vaginal cream Insert 0.5 g every day by vaginal route at bedtime for 30 days. use nightly in the post op period estradiol 0.01% (0.1 mg/gram) vaginal cream Insert 0.5 g every day by vaginal route at bedtime for 30 days. use nightly in the post op period No .5g Q1D estradiol 0.01% (0.1 mg/gram) vaginal cream Insert 0.5 g every day by vaginal route at bedtime for 30 days. use nightly in the post op period [facility] Flagyl 500 mg tablet Take 1 tablet every 12 hours by oral route for 7 days. Flagyl 500 mg tablet Take 1 tablet every 12 hours by oral route for 7 days. No 1 Q12H Flagyl 500 mg tablet Take 1 tablet every 12 hours by oral route for 7 days. [facility] ibuprofen ibuprofen No ibuprofen [facility] Tylenol 325 mg capsule Take as needed by oral route. Tylenol 325 mg capsule Take as needed by oral route. No Tylenol 325 mg capsule Take as needed by oral route. [facility] Immunizations Ordered Immunization Name Filled Immunization Name Date Status Comments Source Td 2012-10-10 00:00:00 Completed [facility] Td 2012-10-10 00:00:00 Completed [facility] Td 2012-10-10 00:00:00 Completed [facility] Td 2012-10-10 00:00:00 Completed [facility] Td 2012-10-10 00:00:00 Completed [facility] TD, NOS Unknown Completed [facility] Vital Signs Vital Name Observation Time Observation Value Comments S ryderce Body Weight 2023-11-13 00:00:00 123 [lb_av] [facility] BP Systolic 2023-11-13 00:00:00 118 mm[Hg] [facility] BMI (Body Mass Index) 2023-11-13 00:00:00 23.2 kg/m2 [facility] BP Diastolic 2023-11-13 00:00:00 90 mm[Hg] [facility] Height 2023-11-13 00:00:00 61 [in_i] [facility] Heart rate 2023-11-08 06:15:00 85 /min [facility] Respiratory rate 2023-11-08 06:15:00 12 /min [facility] Oxygen saturation in Arterial blood by Pulse oximetry 2023-11-08 06:15:00 99 /min [facility] Systolic blood pressure 2023-11-08 06:00:00 109 mm[Hg] [facility] Diastolic blood pressure 2023-11-08 06:00:00 89 mm[Hg] [facility] Body temperature 2023-11-08 05:45:00 36.56 Berna [facility] Body height 2023-11-07 23:01:00 154.9 cm [facility] Body weight 2023-11-07 23:01:00 54.885 kg [facility] BMI 2023-11-07 23:01:00 22.86 kg/m2 [facility] BP Systolic 2023-11-07 00:00:00 110 mm[Hg] [facility] Height 2023-11-07 00:00:00 61 [in_i] [facility] BP Diastolic 2023-11-07 00:00:00 85 mm[Hg] [facility] BMI (Body Mass Index) 2023-11-07 00:00:00 24.7 kg/m2 [facility] Body Weight 2023-11-07 00:00:00 130.6 [lb_av] [facility] BP Systolic 2023-10-30 00:00:00 129 mm[Hg] [facility] Height 2023-10-30 00:00:00 61 [in_i] [facility] BP Diastolic 2023-10-30 00:00:00 91 mm[Hg] [facility] Systolic blood pressure 2020-06-06 20:49:00 120 mm[Hg] [facility] Diastolic blood pressure 2020-06-06 20:49:00 85 mm[Hg] [facility] Heart rate 2020-06-06 20:49:00 86 /min [facility] Procedures Procedure Date / Time Performed Performing Clinician Source LACTIC ACID WHOLE BLOOD 2023-11-08 03:08:00 Do iglesia Torrez [facility] CT ABDOMEN PELVIS W CONTRAST 2023-11-08 01:01:00 Jocelyn Torrez [facility] LIPASE 2023-11-07 23:47:00 Jocelyn Torrez [facility] COMP. METABOLIC PANEL ([id number]) 2023-11-07 23:47:00 Jocelyn Torrez [facility] CBC WITH DIFF 2023-11-07 23:47:00 Jocelyn Torrez [facility] URINALYSIS 2023-11-07 23:47:00 Jocelyn Torrez [facility] CONSENT/REFUSAL FOR DIAGNOSIS AND TREATMENT 2023-11-07 22:49:54 Doctor Unassigned, [place] [facility] Hysterectomy 2023-09-23 00:00:00 Guadalupe Warren [facility] Hysteroscopy Biopsy 2023-08-09 00:00:00 [facility] XR HAND <3 VW RIGHT 2020-06-06 20:55:12 Gayle Lopez [facility] ASSIGNMENT OF BENEFITS 2020-06-06 20:30:19 Docto r Unassigned, [place] [facility] DME/SUPPLY JUSTIFICATION 2020-05-29 05:01:00 Doc tor Unassigned, [place] [facility] Hernia Repair 2014-09-09 00:00:00 [facility] Cholecystectomy (Gallbladder) 2006-09-09 00:00:00 [facility] Plan of Care Planned Activity Planned Date Details Comments Source Diagnostic Test Pending 2023-11-07 00:00:00 urin alysis, dipstick [code = urinalysis, dipstick] [facility] Future Appointment 2023-11-21 15:30:00 Ashley noonan, [facility] ; , [place] [address] [facility] Encounters Start Date/Time End Date/Time Encounter Type Admission Type Attending [facility] Care Department Encounter ID Source 2023-11-20 00:00:00 2023-11-20 00:00:00 Outpatient GC_GCBZW_Ka diyala_S PRIV PRIV [id number] [facility] 2023-11-20 00:00:00 2023-11-20 00:00:00 Ashley Rodriguez MD: [address], [address], [place] [address] , Ph. [facility] - GC_GCBZW_Kaylynn [facility]* [id number] [facility] 2023-11-19 11:00:00 2023-11-19 11:00:00 Outpatient Ashley Blevins [facility] RADI [id number] [address] [place] [address] 2023-11-18 00:00:00 2023-11-18 00:00:00 Outpatient GC_GCBZW_Ka diyala_S PRIV PRIV [id number] [facility] 2023-11-13 00:00:00 2023-11-13 00:00:00 Outpatient GC_GCBZW_Ka diyala_S PRIV PRIV [id number] [facility] 2023-11-13 00:00:00 2023-11-13 00:00:00 Ashley Rodriguez MD: [address], [address], [place] [address] , Ph. [facility] [id number] [facility] 2023-11-11 00:00:00 2023-11-11 00:00:00 Outpatient GC_GCBZW_Ka diyala_S PRIV PRIV [id number] [facility] 2023-11-08 03:21:00 2023-11-10 10:07:00 Inpatient Jennifer Cruz [facility] [id number] [facility] 2023-11-07 17:03:00 2023-11-08 00:37:00 Emergency X SHAN JOCELYN [facility] ERT [id number] [facility] 2023-11-07 17:03:00 2023-11-08 00:37:00 Emergency Shan Jocelyn [facility] [id number] [facility] 2023-11-07 00:00:00 2023-11-07 00:00:00 HERBERTH Galo: [address], [address], [place] [id number] , Ph. [facility] [id number] [facility] 2023-11-04 00:00:00 2023-11-04 00:00:00 Outpatient GC_GCBZW_Ka tiffanya_S [facility] [id number] [facility] 2023-10-30 00:00:00 2023-10-30 00:00:00 Ashley Rodriguez MD: [address], [address], [place] [address] , Ph. [facility] [id number] [facility] 2023-10-22 14:33:00 2023-10-23 10:25:00 Inpatient EM Mack Pack [facility] MEDI.[id number] [facility] 2023-10-22 14:33:00 2023-10-23 10:25:00 Inpatient EM Mack Pack [facility].[id number] [facility] 2023-10-21 22:17:00 2023-10-21 22:17:00 Outpatient Mack Pack [facility] [id number] 15 [facility] 2023-10-21 22:17:00 2023-10-21 22:17:00 Outpatient Mack Pack [facility] [id number] [facility] 2023-10-21 00:00:00 2023-10-21 00:00:00 Outpatient GC_GCBZW_Ka diyala_S PRIV PRIV [id number] [facility] 2023-10-21 00:00:00 2023-10-21 00:00:00 CHELSY Myrick: [address], [address] [id number] , Ph. [facility] - GC_GCBZW_Kaylynn [facility]* [id number] [facility] 2023-09-30 00:00:00 2023-09-30 00:00:00 Outpatient GC_GCBZW_Ka diyala_S PRIV PRIV [id number] [facility] 2023-09-30 00:00:00 2023-09-30 00:00:00 CHELSY Myrick: [address], [address], [place] [id number] , Ph. [facility] - GC_GCBZW_Kaylynn [facility]* [id number] [facility] 2023-09-23 12:27:00 2023-09-23 12:27:00 Outpatient TORY Rodriguez Ashley [facility] DAVID [id number] 2023-09-20 00:00:00 2023-09-20 00:00:00 Outpatient GC_GCBZW_Ka diyala_S PRIV PRIV [id number] [facility] 2023-09-17 00:00:00 2023-09-17 00:00:00 Outpatient GC_GCBZW_Ka diyala_S PRIV PRIV [id number] [facility] 2023-09-13 00:00:00 2023-09-13 00:00:00 Outpatient GC_GCBZW_Ka diyala_S PRIV PRIV [id number] [facility] 2023-08-27 00:00:00 2023-08-27 00:00:00 Outpatient GC_GCBZW_Ka diyala_S PRIV PRIV [id number] [facility] 2023-08-09 00:00:00 2023-08-09 00:00:00 Outpatient GC_GCBZW_Ka diyala_S PRIV PRIV [id number] [facility] 2023-08-09 00:00:00 2023-08-09 00:00:00 Outpatient GC_GCBZW_Ka diyala_S PRIV PRIV [id number] [facility] 2023-06-19 00:00:00 2023-06-19 00:00:00 Outpatient GC_GCBZW_Ka diyala_S PRIV PRIV [id number] [facility] 2023-06-19 00:00:00 2023-06-19 00:00:00 Outpatient GC_GCBZW_Ka diyala_S PRIV PRIV [id number] [facility] 2023-06-19 00:00:00 2023-06-19 00:00:00 Outpatient GC_GCBZW_Ka diyala_S PRIV PRIV [id number] [facility] 2023-06-19 00:00:00 2023-06-19 00:00:00 Outpatient GC_GCBZW_Ka diyala_S PRIV PRIV [id number] [facility] 2023-06-18 00:00:00 2023-06-18 00:00:00 Outpatient GC_GCBZW_Ka diyala_S PRIV PRIV [id number] [facility] 2023-06-04 00:00:00 2023-06-04 00:00:00 Outpatient GC_GCBZW_Ka diyala_S PRIV PRIV [id number] [facility] 2022-08-23 13:30:00 2022-08-23 13:30:00 Outpatient MOY HERNANDEZ CHERYAL [place] [id number] [facility] 2022-08-08 15:30:00 2022-08-08 15:30:00 Outpatient R JOSEKVNG MOY JOSEKVNGSHANAJOSE DANIEL [place] [id number] [facility] 2020-06-13 16:15:00 2020-06-13 16:15:00 Outpatient R [facility] [id number] [facility] 2020-06-06 15:55:12 2020-06-06 23:59:00 Hospital Encounter [facility] 1.2.840.114 350.1.13.10 4.2.7.2.686 [id number] [facility] 2020-06-06 16:00:00 2020-06-06 16:00:00 Outpatient [facility] [id number] [facility] 2020-06-06 15:34:00 2020-06-06 15:49:00 Office [facility] 1.2.840.114 350.1.13.10 4.2.7.2.686 [id number] [facility] 2020-06-06 00:00:00 2020-06-06 00:00:00 Orders Only Doctor Unassigned, [place] [facility] 1.2.840.114 350.1.13.10 4.2.7.2.686 [id number] [facility] 2020-05-29 00:00:00 2020-05-29 00:00:00 Orders Only Doctor Unassigned, [place] [id number] 350.1.13.10 4.2.7.2.686 [id number] [facility] Results Test Description Test Time Test Comments Results Resul t Comments Source - CT ABD PELVIS W WO CONT 2023-11-19 14:37:00 [facility] 1985 Sex: F Name: MARIA DEL CARMEN RUIZ [facility] : 1985 Age/S: 38 / F [address] Unit #: [id number] Loc: [place] [address] Phys: Ashley Rodriguez MD Acct: [id number] Dis Date: Status: REG CLI PHONE #: [phone] Exam Date: 11/19/2023 1200 FAX #: Reason: PELVIC AND PERINEAL PAIN EXAMS: CPT: [id number] CT ABD PELVIS W WO CONT [address] Location Code: S17 EXAMINATION: - CT ABD PELVIS W WO CONT CLINICAL INDICATION: Female, 38 years old with PELVIC AND PERINEAL PAIN TECHNIQUE: Thin section axial pre- and post-contrast contiguous images were obtained through the abdomen and pelvis followed by coronal and sagittal multiplanar reformations. One or more of the following dose reduction techniques were used: Automated exposure control, adjustment of the mA and/or kV according to patient size, and/or iterative reconstruction. Unless otherwise specified, incidental findings do not require dedicated imaging follow-up. COMPARISON: CT abdomen pelvis November 08, 2023. FINDINGS: Lower Chest: Visualized lung bases are clear. Heart is normal in size. No pericardial or pleural effusion. Liver: The liver is normal in size and contour. No focal lesions. Bile ducts are of normal caliber. Gallbladder: Surgically absent. Pancreas: No evidence of focal pancreatic mass or peripancreatic fluid collection. Spleen: Normal in size and contour. Adrenals: Normal configuration. Kidneys and ureters: No evidence for obstructive uropathy. Bladder/Reproductive Organs: Urinary bladder is decompressed, limiting its evaluation. Uterus is surgically absent. Bowel: No evidence of bowel obstruction. Appendix is not clearly visualized. No evidence of free air. There has been interval decrease in small to moderate amount of fluid and thickening within the pelvis. PAGE 1 Signed Report (CONTINUED) Name: MARIA DEL CARMEN RUIZ : 1985 Age/S: 38 / F [address] Unit #: [id number] Loc: [place] [address] Phys: Ashley Rodriguez MD Acct: [id number] Dis Date: Status: REG CLI PHONE #: [phone] Exam Date: 11/19/2023 1200 FAX #: Reason: PELVIC AND PERINEAL PAIN EXAMS: CPT: [id number] CT ABD PELVIS W WO CONT 30863 (Continued) No evidence of drainable fluid collection. Lymph nodes: There are no pathologically enlarged abdominopelvic lymph nodes. Retroperitoneum: No mass or hemorrhage. Normal caliber abdominal aorta. Abdominal wall: Postoperative changes are present along the anterior abdominal wall. Bones: No evidence for acute osseous abnormality. IMPRESSION: Moderate interval decrease in the amount of fluid and thickening within the pelvis. No evidence of drainable fluid collection. No other acute intra-abdominal process. at 1437 Reported and signed by: Juan Miguel Bush M.D. CC: Ashley Rodriguez MD Technologist:Yarely Shaikh CTDI: DLP: Trnscb Date/Time: 11/19/2023 (1437) [email or web address] Orig Print D/T: S: 11/19/2023 (0915) PAGE 2 Signed Report CBC W/AUTO [id number] 12:25:00* Test Item Value Reference Range Interpretation Comme nts WHITE BLOOD CELL (test code = WBC) 13.8 K/mm3 6.5-12.3 H RED BLOOD CELL (test code = RBC) 3.98 M/mm3 3.51-4.69 N HEMOGLOBIN (test code = HGB) 12.1 g/dL 10.1-13.8 N HEMATOCRIT (test code = HCT) 35.1 % 32.5-41.8 N MEAN CELL VOLUME (test code = MCV) 88.2 fL 84.6-96.6 N MEAN CELL HGB (test code = MCH) 30.4 pg 27.3-33.9 N MEAN CELL HGB CONCETRATION ( test code = MCHC) 34.5 gm/dL 32.0-34.2 H RED CELL DISTRIBUTION WIDTH (test code = RDW) 13.1 % 12.2-16.3 N PLATELET COUNT (test code = PLT) 322 K/mm3 134-363 N MEAN PLATELET VOLUME (test c ode = MPV) 10.2 fL 9.2-12.7 N NEUTROPHIL % (test code = NT%) 65.6 % 57.9-77.3 N LYMPHOCYTE % (test code = LY%) 22.2 % 14.5-29.7 N MONOCYTE % (test code = MO%) 9.3 % 3.6-10.2 N EOSINOPHIL % (test code = EO%) 2.0 % 0.0-3.0 N BASOPHIL % (test code = BA%) 0.7 % 0.1-0.9 N NEUTROPHIL # (test code = NT#) 9.1 K/mm3 LYMPHOCYTE # (test code = LY#) 3.1 K/mm3 MONOCYTE # (test code = MO#) 1.3 K/mm3 EOSINOPHIL # (test code = EO#) 0.28 K/mm3 BASOPHIL # (test code = BA#) 0.1 K/mm3 RBC MORPHOLOGY REQUIRED (anamaria t code = RBCM) NORMAL NORMAL PLATELET MORPHOLOGY REQUIRED (test code = PLTMR) NORMAL NORMAL infectious disease [id number] 11:01:00* Test Item Value Reference Range Interpretation Comme nts chlamydia trachomatis (test code = chlamydia trachomatis) 0 ppm 10.500-32.000 trichomonas vaginalis (test code = trichomonas vaginalis) 0 ppm 10.500-32.000 ermb, C; mefa (test code = e rmb, C; mefa) 0 ppm tet B, tet M (test code = te t B, tet M) 0 ppm dfr (A1, A5), sul (1, 2) (te st code = dfr (A1, A5), sul (1, 2)) 0 ppm neisseria gonorrhoeae (test code = neisseria gonorrhoeae) 0 ppm 10.500-32.000 bvab 2,3 (bacterial vaginosis-associated bacteria 2,3); mobiluncus spp (test code = bvab 2,3 (bacterial vaginosis-associated bacteria 2,3); mobiluncus spp) 0 ppm 10.500-32.000 gardnerella vaginalis (test code = gardnerella vaginalis) 0 ppm 10.500-32.000 megasphaera (types 1, 2) (te st code = megasphaera (types 1, 2)) 0 ppm 10.500-32.000 atopobium vaginae (test code = atopobium vaginae) 23.392 ppm 10.500-32.000 A herpes simplex virus 1 (test code = herpes simplex virus 1) 0 ppm 10.500-32.000 herpes simplex virus 2 (test code = herpes simplex virus 2) 0 ppm 10.500-32.000 hortensia albicans, parapsilos is, tropicalis (test code = hortensia albicans, parapsilosis, tropicalis) 0 ppm 10.500-32.000 hortensia glabrata (test code = hortensia glabrata) 0 ppm 10.500-32.000 hortensia krusei (test code = hortensia krusei) 0 ppm 10.500-32.000 [facility] [id number] 11:01:00* Test Item Value Reference Range Interpretation Comme nts chlamydia trachomatis (test code = chlamydia trachomatis) 0 ppm 10.500-32.000 trichomonas vaginalis (test code = trichomonas vaginalis) 0 ppm 10.500-32.000 ermb, C; mefa (test code = e rmb, C; mefa) 0 ppm tet B, tet M (test code = te t B, tet M) 0 ppm dfr (A1, A5), sul (1, 2) (te st code = dfr (A1, A5), sul (1, 2)) 0 ppm neisseria gonorrhoeae (test code = neisseria gonorrhoeae) 0 ppm 10.500-32.000 bvab 2,3 (bacterial vaginosis-associated bacteria 2,3); mobiluncus spp (test code = bvab 2,3 (bacterial vaginosis-associated bacteria 2,3); mobiluncus spp) 0 ppm 10.500-32.000 gardnerella vaginalis (test code = gardnerella vaginalis) 0 ppm 10.500-32.000 megasphaera (types 1, 2) (te st code = megasphaera (types 1, 2)) 0 ppm 10.500-32.000 atopobium vaginae (test code = atopobium vaginae) 23.392 ppm 10.500-32.000 A herpes simplex virus 1 (test code = herpes simplex virus 1) 0 ppm 10.500-32.000 herpes simplex virus 2 (test code = herpes simplex virus 2) 0 ppm 10.500-32.000 hortensia albicans, parapsilos is, tropicalis (test code = hortensia albicans, parapsilosis, tropicalis) 0 ppm 10.500-32.000 hortensia glabrata (test code = hortensia glabrata) 0 ppm 10.500-32.000 hortensia krusei (test code = hortensia krusei) 0 ppm 10.500-32.000 [facility] CT ABD PELVIS W/[id number] 09:37:00 [facility] 1985 Sex: F Patient Name: MARIA DEL CARMEN RUIZ Unit No: [id number] EXAMS: CPT CODE: [id number] CT ABD PELVIS W/CONT 49418 CT ABDOMEN AND PELVIS WITH CONTRAST: INDICATIONS:Pelvic abscess Comparison: Outside CT dated November 07, 2023. TECHNIQUE: Axial CT imaging of the abdomen and pelvis IV contrast. Coronal and sagittal reformats reconstructed. One or more of the following dose reduction techniques were used: Automatedexposure control, adjustment of the mA and or Kv according to patient size, and / or utilization ofiterative reconstruction technique. FINDINGS: Some dependent lung atelectasis. Below the hemidiaphragms: Status post hysterectomy. Some fluid strandings and mesenteric inflammations at the surgical site and at superior vaginal vault. No discrete walled off collection. No free peritoneal air. Focal fatty infiltration along the falciform ligament. Portal vein is patent. The gallbladder is surgically absent. The spleen is unremarkable. Unremarkable pancreas without peripancreatic inflammation. Normal adrenal glands. Both kidneys are unremarkable. No enhancing kidney mass. No hydronephrosis or hydroureter. Unremarkable urinary bladder. Prior ventral hernia/umbilical hernia repair. No small or large bowel obstruction. A normal caliber appendix. The abdominal aorta is of normal caliber withoutdissection or aneurysm. No suspicious bony lesion. IMPRESSION: [facility] NAME:MARIA DEL CARMEN RUIZ Radiology Department PHYS: - Steffany Byrne [address] : 1985 AGE: 38 SEX: F [place], [place] [address] LOC: F.2600 A PHONE #: [phone] EXAM DATE: 11/08/2023 STATUS: ADM IN FAX #: [phone] RAD NO: Page 1 Signed Report 1 Patient Name: MARIA DEL CARMEN RUIZ Unit No: [id number] EXAMS: CPT CODE: [id number] CT ABD PELVIS W/CONT 93558 (Continued) Status post hysterectomy. Some fluid strandings and mesenteric inflammations at the surgical site and atsuperior vaginal vault. No discrete walled off collection. Electronically Signed by Barry Melton 11/08/2023 at 0937 Reported and signed by: Barry Cook MD CC: Steffany Byrne MD; Ashley Rodriguez MD; Jennifer Salazar MD Technologist: Wei Ontiveros, RT, CT CTDI: 3.98 DLP: 193.93 Trnscrbd D/ (0937) t.SDR.VL4 [facility] NAME: MARIA DEL CARMEN RUIZ Radiology Department PHYS: Steffany Loco [address] : 1985 AGE: 38 SEX: F [place], [place] [address] LOC: F.2600 A PHONE #: [phone] EXAM DATE: 11/08/2023 STATUS: ADMIN FAX #: [phone] RAD NO: Page 2 Signed Report 1 Patient Name: MARIA DEL CARMEN RUIZ Unit No: [id number] EXAMS: CPT CODE: [id number] CT ABD PELVIS W/CONT 30887 (Continued) Orig Print D/T: S: 11/08/2023 (0941) [facility] NAME: MARIA DEL CARMEN RUIZ Radiology Department PHYS: Steffany Alvarenga [address] : 1985 AGE: 38 SEX: F [place], [place] [address] LOC: F.2600 A PHONE #: [phone] EXAM DATE: 11/08/2023 STATUS: ADM IN FAX #: [phone] RAD NO: Page 3 Signed Report 1CT ABDOMEN PELVIS W [id number] 04:23:44EXAM: CT ABDOMEN/PELVIS WITH CONTRAST HISTORY: ?Abdominal abscess/infection suspected WBC 19 concern for colitis/diverticulitis/perforation recent hysterectomy(09/23/2023) COMPARISON: None. TECHNIQUE:Contiguous axial imaging from the level of the lung basesthrough the proximal thighs was performed after the administration ofintravenous contrast. Coronal and sagittal reconstructions were obtained.Auto mA and/or iterative reconstruction were used to reduce radiation dose. FINDINGS: LOWER THORAX:The lungs bases are clear. No cardiomegaly. LIVER: No focal hepatic lesions. Focal fatty infiltration along thefalciform ligament. Normal contour. GALLBLADDER AND BILIARY TREE: Prior cholecystectomy.Mild centralintrahepatic biliary ductal prominence, probably due to reservoirphenomenon. SPLEEN: No splenomegaly. PANCREAS: No ductal dilation or masses. ADRENAL GLANDS: No adrenal nodules. KIDNEYS: No hydronephrosis, stones, or masses. PERITONEUM AND RETROPERITONEUM: No free air or free fluid to suggest viscusperforation. Changes of prior anterior abdominal wall herniorrhaphy. LYMPH NODES: Slightly prominent bilateral iliac lymph nodes, measuring upto 6-7 mm in short axis bilaterally (2:85-86).A prominent 8 mm left para-aortic lymph node at the lateral renal vein(2:37).A prominent 8 mm rightlower quadrant mesenteric lymph node (2:38).Multiple tiny perirectal lymph nodes (2:100-105) GI TRACT: No dilation. Circumferential proximal sigmoid wall thickening. PELVIS/BLADDER: Prior hysterectomy. There is a fluid collection withincompletely rim enhancement at the surgical bed on the left, just superiorto the vaginal stump, measuring 2.8 x 1.8 x 1.4 cm (AP by TV by CC), onimages 2:100, 6:62.A smaller structure at the right side of the vaginalstump, surgical bed, approximately measuring 1.1 x 2.1 x 1.0 cm (AP by TVby CC) on the images 2:101, 6:50, inseparable from adjacent small bowelloops, possibly small bowel loop versus additional small collection.Significant surrounding fat stranding in the central pelvis. The right ovary is not clearly delineated from adjacent small bowel loops,but possibly unremarkable (2:98). The left ovary is not clearly visualized,but possibly located adjacent to the iliac vessels (2:88). The urinary bladder is mildly distended, unremarkable. VESSELS: Scattered atherosclerotic predominantly noncalcifiedatherosclerotic plaque in the aorta and bilateral common femoral arteries.Less than 50% stenosis at the bilateral common femoral arteries. BONES AND SOFT TISSUES: No suspicious lytic or sclerotic bony lesions.[facility] Whole [id number] 03:17:00* Test Item Value Reference Range Interpretation Comme nts LACTIC ACID (test code = 7282286949) 1.22 mmol/L 0.50-2.20 Lab Interpretation (test cod e = 93104-5) Normal [facility] WITH [id number] 00:42:59* Test Item Value Reference Range Interpretation Comme nts WBC (test code = 6690-2) 19.08 4.30-11.10 H RBC (test code = 789-8) 4.34 3.93-5.25 HGB (test code = 718-7) 13.3 g/dL 11.6-15.0 HCT (test code = 4544-3) 38.5 % 35.7-45.2 MCV (test code = 787-2) 88.7 fL 80.6-95.5 MCH (test code = 785-6) 30.6 pg 25.9-32.8 MCHC (test code = 786-4) 34.5 g/dL 31.6-35.1 RDW-SD (test code = 62581-5) 41.6 fL 39.0-49.9 RDW-CV (test code = 788-0) 12.8 % 12.0-15.5 PLT (test code = 777-3) 387 166-358 H MPV (test code = 04218-5) 10.1 fL 9.5-12.9 NRBC/100 WBC (test code = 5272191953) 0.0 0.0-10.0 NRBC x10^3 (test code = 3047515598) See_Comment [Automated message] The system which generated this result transmitted reference range: 10*3/?L. The reference range was not used to interpret this result as normal/abnormal. GRAN MAT (NEUT) % (test code = 770-8) 70.4 % IMM GRAN % (test code = 2128664652) 0.50 % LYMPH % (test code = 736-9) 19.8 % MONO % (test code = 5905-5) 8.1 % EOS % (test code = 713-8) 0.7 % BASO % (test code = 706-2) 0.5 % GRAN MAT x10^3(ANC) (test code = 2021889587) 13.44 10*3/uL 1.88-7.09 H IMM GRAN x10^3 (test code = 1844689613) 0.09 10*3/uL 0.00-0.06 H LYMPH x10^3 (test code = 731-0) 3.77 10*3/uL 1.32-3.29 H MONO x10^3 (test code = 742-7) 1.55 10*3/uL 0.33-0.92 H EOS x10^3 (test code = 711-2) 0.13 10*3/uL 0.03-0.39 BASO x10^3 (test code = 704-7) 0.10 10*3/uL 0.01-0.07 H Lab Interpretation (test code = 96881-6) [facility] (04833)2023-11-08 00:26:19* Test Item Value Reference Range Interpretation Comme nts NA (test code = 5525349907) 138 mmol/L 135-145 K (test code = 8813646907) 3.3 mmol/L 3.5-5.0 L CL (test code = 2384197013) 109 mmol/L 98-108 H CO2 TOTAL (test code = 0498255302) 22 mmol/L 23-31 L AGAP (test code = 1942383060) 7 2-16 BUN (test code = 3258795251) 17 mg/dL 7-23 GLUCOSE (test code = 9762430865) 99 mg/dL 70-110 CREATININE (test code = 2160-0) 0.69 mg/dL 0.50-1.04 TOTAL BILI (test code = 8232041611) 0.5 mg/dL 0.1-1.1 CALCIUM (test code = 4437704439) 9.1 mg/dL 8.6-10.6 T PROTEIN (test code = 7959110687) 7.1 g/dL 6.3-8.2 ALBUMIN (test code = 3027741058) 4.1 g/dL 3.5-5.0 ALK PHOS (test code = 2658352550) 76 U/L 34-122 ALTv (test code = 1742-6) 19 U/L 5-35 AST(SGOT) (test code = 3544876647) 18 U/L 13-40 eGFR (test code = 33235-9) 114.1 mL/min/1.73m2 CKD-EPI eGFR (2020). Assuming creatinine has been stable day-to-day for at least three months, the eGFR indicates Category G1 (>= 90 mL/min/1.73 m2) Lab Interpretation (test code = 86344-0) Abnormal [facility] Center[facility]IP[facility]2024-[facility] 00:25:58* Test Item Value Reference Range Interpretation Comme nts LIPASE (test code = 9948081045) 157 U/L 0-220 Lab Interpretation (test cod e = 45458-6) Normal [facility] Center[facility]inal[facility] macro (dipstick) panel - Urine 2023-11-07 14:37:00* Test Item Value Reference Range Interpretation Comme nts Leukocytes (test code = Leukocytes) Negative Nitrite (test code = Nitrite) negative Urobilinogen (test code = Urobilinogen) Normal Protein (test code = Protein) Negative pH (test code = pH) 6.0 Blood (test code = Blood) 1+ Specific Sidney (test code = Specific Sidney) 1.015 Ketone (test code = Ketone) Negative Bilirubin (test code = Bilirubin) Negative Glucose (test code = Glucose) Negative Appearance (test code = Appearance) Slightly Cloudy Color (test code = Color) Dark Yellow [facility] MedicalUrinalysis macro (dipstick) panel - [id number] 14:37:00* Test Item Value Reference Range Interpretation Comme nts Leukocytes (test code = Leukocytes) Negative Nitrite (test code = Nitrite) negative Urobilinogen (test code = Urobilinogen) Normal Protein (test code = Protein) Negative pH (test code = pH) 6.0 Blood (test code = Blood) 1+ Specific Sidney (test code = Specific Sidney) 1.015 Ketone (test code = Ketone) Negative Bilirubin (test code = Bilirubin) Negative Glucose (test code = Glucose) Negative Appearance (test code = Appearance) Slightly Cloudy Color (test code = Color) Dark Yellow [facility] MedicalBASIC METABOLIC [id number] 05:50:00* Test Item Value Reference Range Interpretation Comme nts SODIUM (test code = NA) 140 mmol/L 134-147 N POTASSIUM (test code = K) 3.5 mmol/L 3.4-5.0 N CHLORIDE (test code = CL) 113 mmol/L 100-108 H CARBON DIOXIDE (test code = CO2) 21 mmol/L 21-32 N ANION GAP (test code = GAP) 6.0 GAP calc 4.0-15.0 N GLUCOSE (test code = GLU) 87 MG/DL 70-110 N BLOOD UREA NITROGEN (test code = BUN) 7 MG/DL 7-18 N GLOMERULAR FILTRATION RATE (test code = GFR) >=60 max estimate estGFR >60 The Glomerular Filtration Rate is a calculated parameterbased on serum Creatinine, patient age and sex. GFR valuesless than 60 mL/min/1.73 square meters are indicative ofChronic Kidney Disease. Values less than 15 mL/min/1.73square meters indicate Kidney failure. The calculation forGFR is based on the CKD-EPI (202) calculation. This formulais race indifferent and is the recommended formula for GFRby the National Kidney Foundation for Adults.The GFR will not calculate if the sex is unknown or if thepatient's age is <18 years. CREATININE (test code = CREAT) 0.8 MG/DL 0.6-1.0 N CALCIUM (test code = CA) 8.3 MG/DL 8.5-10.1 L CBC W/AUTO [id number] 05:03:00* Test Item Value Reference Range Interpretation Comme nts WHITE BLOOD CELL (test code = WBC) 8.8 K/mm3 3.5-11.0 N RED BLOOD CELL (test code = RBC) 4.15 M/mm3 4.70-6.10 L HEMOGLOBIN (test code = HGB) 12.5 G/DL 10.4-14.9 N HEMATOCRIT (test code = HCT) 36.2 % 31.5-44.1 N MEAN CELL VOLUME (test code = MCV) 87.2 Fl 84.5-98.6 N MEAN CELL HGB (test code = MCH) 30.1 pg 27.0-34.2 N MEAN CELL HGB CONCETRATION (test code = MCHC) 34.5 G/DL 31.5-34.0 H RED CELL DISTRIBUTION WIDTH (test code = RDW) 13.1 SD 11.5-14.5 N PLATELET COUNT (test code = PLT) 347 K/mm3 150-450 N MEAN PLATELET VOLUME (test c ode = MPV) 9.60 fL 7.0-10.5 N NEUTROPHIL % (test code = NT%) 45.0 % 40-76 IMMATURE GRANULOCYTE % (test code = IG%) 0.2 % 0.0-5.0 N LYMPHOCYTE % (test code = LY%) 33.9 % 20.5-51.1 N MONOCYTE % (test code = MO%) 10.4 % 1.7-9.3 H EOSINOPHIL % (test code = EO%) 9.7 % 0.0-6.0 H BASOPHIL % (test code = BA%) 0.8 % 0.0-2.0 N NUCLEATED RBC % (test code = NRBC%) 0.0 /100WBC% 0.0-1.0 N NEUTROPHIL # (test code = NT#) 4.0 K/mm3 1.8-7.6 N IMMATURE GRANULOCYTE # (test code = IG#) 0.02 x10 3/uL 0.00-0.03 N LYMPHOCYTE # (test code = LY#) 3.0 K/mm3 0.6-3.2 N MONOCYTE # (test code = MO#) 0.9 K/mm3 0.3-1.1 N EOSINOPHIL # (test code = EO#) 0.9 K/mm3 0.0-0.4 H BASOPHIL # (test code = BA#) 0.1 K/mm3 0.0-0.1 N NUCLEATED RBC # (test code = NRBC#) 0.0 K/mm3 0.0-0.1 N COMPREHENSIVE METABOLIC [id number] 05:31:00* Test Item Value Reference Range Interpretation Comme nts SODIUM (test code = NA) 140 mmol/L 134-147 N POTASSIUM (test code = K) 3.5 mmol/L 3.4-5.0 N CHLORIDE (test code = CL) 114 mmol/L 100-108 H CARBON DIOXIDE (test code = CO2) 24 mmol/L 21-32 N ANION GAP (test code = GAP) 2.0 GAP calc 4.0-15.0 L GLUCOSE (test code = GLU) 90 MG/DL 70-110 N BLOOD UREA NITROGEN (test code = BUN) 8 MG/DL 7-18 N GLOMERULAR FILTRATION RATE (test code = GFR) >=60 max estimate estGFR >60 The Glomerular Filtration Rate is a calculated parameterbased on serum Creatinine, patient age and sex. GFR valuesless than 60 mL/min/1.73 square meters are indicative ofChronic Kidney Disease. Values less than 15 mL/min/1.73square meters indicate Kidney failure. The calculation forGFR is based on the CKD-EPI (202) calculation. This formulais race indifferent and is the recommended formula for GFRby the National Kidney Foundation for Adults.The GFR will not calculate if the sex is unknown or if thepatient's age is <18 years. CREATININE (test code = CREAT) 0.7 MG/DL 0.6-1.0 N TOTAL PROTEIN (test code = PROT) 5.7 G/DL 6.4-8.2 L ALBUMIN (test code = ALB) 2.9 G/DL 3.4-5.0 L GLOBULIN (test code = GLOB) 2.8 GM/dL ALBUMIN/GLOBULIN RATIO (test code = A/G) 1.0 RATIO 1.2-2.2 L CALCIUM (test code = CA) 7.9 MG/DL 8.5-10.1 L BILIRUBIN TOTAL (test code = BILT) 0.30 MG/DL 0.2-1.2 N SGOT/AST (test code = AST) 10 Unit/L 15-37 L SGPT/ALT (test code = ALT) 22 Unit/L 12-78 N ALKALINE PHOSPHATASE TOTAL (test code = ALKP) 60 Unit/L 45-117 N [id number] 05:31:00* Test Item Value Reference Range Interpretation Comme nts PHOSPHOROUS (test code = PHOS) 2.8 MG/DL 2.5-4.9 N [id number] 05:31:00* Test Item Value Reference Range Interpretation Comme nts MAGNESIUM (test code = MAG) 2.3 MG/DL 1.8-2.4 N PROTHROMBIN [id number] 05:21:00* Test Item Value Reference Range Interpretation Comme [facility] PT PATIENT (test code = PTP) 11.8 SECONDS 9.3-12.9 N INTERNATIONAL NORMAL RATIO (test code = INR) 1.05 INR Unit 0.8-1.2 N TARGET INR BY INDICATION Indication INR1. Prophylaxis of venous thrombosis 2.0 - 3.0 (orthopedic surgery), Prophylaxis of venous thrombosis (other than high-risk surgery), Treatment of Deep Vein Thrombosis/Pulmonary Embolism, Prevention of systemic embolism - Tissue heart valves, Acute Myocardial Infarction (to prevent systemic embolism), Valvular heart disease, Acute Myocardial Infarction (to prevent systemic embolism), Valvular heart disease, Atrial Fibrillation, Bileaflet mechanical valve in aortic position.2. Mechanical prosthetic valves (high risk), 2.5 - 3.5 Presence of Lupus Anticoagulant or Antiphospholipid Antibodies, Prevention of systemic embolism - Acute Myocardial Infarction (to prevent recurrent infarct). THROMBOPLASTIN TIME [id number] 05:21:00* Test Item Value Reference Range Interpretation Comme [facility] THROMBOPLASTIN TIME PARTIAL (test code = PTT) 26.9 SECONDS 26-35 N [id number] 05:21:00* Test Item Value Reference Range Interpretation Comme [facility] FIBRINOGEN (test code = FIB) 297 mg/dL 185-453 N CBC W/AUTO [id number] 05:13:00* Test Item Value Reference Range Interpretation Comme nts WHITE BLOOD CELL (test code = WBC) 8.7 K/mm3 3.5-11.0 N RED BLOOD CELL (test code = RBC) 4.26 M/mm3 4.70-6.10 L HEMOGLOBIN (test code = HGB) 12.7 G/DL 10.4-14.9 N HEMATOCRIT (test code = HCT) 37.4 % 31.5-44.1 N MEAN CELL VOLUME (test code = MCV) 87.8 Fl 84.5-98.6 N MEAN CELL HGB (test code = MCH) 29.8 pg 27.0-34.2 N MEAN CELL HGB CONCETRATION (test code = MCHC) 34.0 G/DL 31.5-34.0 N RED CELL DISTRIBUTION WIDTH (test code = RDW) 13.0 SD 11.5-14.5 N PLATELET COUNT (test code = PLT) 324 K/mm3 150-450 N MEAN PLATELET VOLUME (test c ode = MPV) 9.60 fL 7.0-10.5 N NEUTROPHIL % (test code = NT%) 50.1 % 40-76 N IMMATURE GRANULOCYTE % (test code = IG%) 0.1 % 0.0-5.0 N LYMPHOCYTE % (test code = LY%) 33.7 % 20.5-51.1 N MONOCYTE % (test code = MO%) 10.1 % 1.7-9.3 H EOSINOPHIL % (test code = EO%) 5.2 % 0.0-6.0 N BASOPHIL % (test code = BA%) 0.8 % 0.0-2.0 N NUCLEATED RBC % (test code = NRBC%) 0.0 /100WBC% 0.0-1.0 N NEUTROPHIL # (test code = NT#) 4.3 K/mm3 1.8-7.6 N IMMATURE GRANULOCYTE # (test code = IG#) 0.01 x10 3/uL 0.00-0.03 N LYMPHOCYTE # (test code = LY#) 2.9 K/mm3 0.6-3.2 N MONOCYTE # (test code = MO#) 0.9 K/mm3 0.3-1.1 N EOSINOPHIL # (test code = EO#) 0.5 K/mm3 0.0-0.4 H BASOPHIL # (test code = BA#) 0.1 K/mm3 0.0-0.1 N NUCLEATED RBC # (test code = NRBC#) 0.0 K/mm3 0.0-0.1 N LACTIC [id number] 20:28:00* Test Item Value Reference Range Interpretation Comme nts LACTIC ACID (test code = LACT) 0.9 mmol/L 0.4-2.0 N - CT ABD PELVIS W/[id number] 19:03:00 [facility] 1985 Sex: F Name: MARIA DEL CARMEN RUIZ [facility] : 1985 Age/S: 38 / F [address] Unit #: [id number] Loc: [place] [address] 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 Coronal and sagittal reformatted images were created from the data set. UNLESS OTHERWISE SPECIFIED, INCIDENTAL FINDINGS DO NOT REQUIRE DEDICATED IMAGING FOLLOW-UP. One or more of thefollowing dose reduction techniques were used: Automated exposure control, adjustment of the mA and/or kV according to patient size, and/or iterative reconstruction. COMPARISON: None FINDINGS: Lung bases are clear. The liver is unremarkable. The spleen is unremarkable. The pancreas is unremarkable.Both adrenal glands are unremarkable. No intra or extrahepatic biliary duct dilatation. The gallbladder is surgically absent. Both kidneys are normal in size, shape and location without mass or hydronephrosis. The bowel is unremarkable. The vascular structures are unremarkable. PAGE 1 Signed Report (CONTINUED) Name: MARIA DEL CARMEN RUIZ [facility] : 1985 Age/S: 38 / F [address] Unit #: [id number] Loc: [place] [address] Phys: Joe Torres NP Acct: [id number] Dis Date: Status: REG ER PHONE #: [phone] Exam Date: 10/21/2023 1838 FAX #: Reason: pain EXAMS: CPT: [id number] CT ABD PELVIS W/CONT 94614 (Continued) No retroperitoneal, mesenteric or pelvic lymphadenopathy. No fluid collections or free fluid. No free air. The uterus is absent. No adnexal mass. The urinary bladder is decompressed limiting its evaluation.. No acute osseous lesions. Post surgical changes of an anterior abdominal wall repair. IMPRESSION: No acute abdominal or pelvic abnormality. at 1903 Reported and signed by: MariaO. Becca M.D. CC: Joe Torres PRE KINDERGARTEN TEACHER; Ashley Rodriguez MD Technologist:Amadou Varela, (R) CTDI: DLP: Trnscb Date/Time: 10/21/2023 (1902) Marie Orig Print D/T: S: 10/21/2023 (1906) PAGE2 Signed Report- CT ABD PELVIS W/[id number] 19:03:00 [facility] : 1985 Sex: F Name: MARIA DEL CARMEN RUIZ : 1985 Age/S: 38 / F [address] Unit #: [id number] Loc: [place] [address] Phys: TorresJoe PRE KINDERGARTEN TEACHER Acct: [id number] Dis Date: 10/23/2023 Status: DIS IN PHONE #: [phone] Exam Date: 10/21/20231837 FAX #: Reason: pain EXAMS: CPT: [id number] CT ABDPELVIS W/CONT 81061 Location:7 EXAM: CT ABDOMEN/PELVIS WITH CONTRAST DATE: 10/21/2023 5:08 PM HISTORY: 38-year-old with pain TECHNIQUE: Axial CT images were obtained through the abdomen and pelvis after intravenous contrast. Coronal and sagittal reformatted images were created from the data set. UNLESS OTHERWISE SPECIFIED, INCIDENTAL FINDINGS DO NOT REQUIRE DEDICATED IMAGING FOLLOW-UP. One or more of the following dose reduction techniques were used: Automated exposure control, adjustment of the mA and/or kV according to patient size, and/or iterative reconstruction. COMPARISON: None FINDINGS: Lung bases are clear. The liver is unremarkable. The spleen is unremarkable. The pancreas is unremarkable. Both adrenal glands are unremarkable. No intra or extrahepatic biliary duct dilatation. The gallbladder is surgically absent. Both kidneys are normal in size, shape and location without mass or hydronephrosis. The bowel is unremarkable. The vascular structures are unremarkable. PAGE 1 Signed Report (CONTINUED) Name: MARIA DEL CARMEN RUIZ : 1985 Age/S: 38 / F [address] [address] Unit #: [id number] Loc: [place] [address] Phys: Joe Torres PRE KINDERGARTEN TEACHER Acct: [id number] Dis Date: 10/23/2023 Status: DIS IN PHONE #: [phone] Exam Date: 10/21/20231837 FAX #: Reason: pain EXAMS: CPT: [id number] CT ABD PELVIS W/CONT 05797 (Continued) No retroperitoneal, mesenteric or pelvic lymphadenopathy. No fluid collections or free fluid. No free air. The uterus is absent. No adnexalmass. The urinary bladder is decompressed limiting its evaluation.. No acute osseous lesions. Post surgical changes of an anterior abdominal wall repair. IMPRESSION: No acute abdominal or pelvic abnormality. at 1903 Reported and signed by: Kendal Hudson M.D. CC: Joe Torres PRE KINDERGARTEN TEACHER; Ashley Rodriguez MD Technologist:Amadou Varela, RT(R) CTDI: DLP: Trnscb Date/Time: 10/21/2023 (1902) t.SDR.MOP Orig Print D/T: S: 10/21/2023 (1906) PAGE 2 Signed ReportUA RFLX MICR CULT IF [id number] 18:25:00* Test Item Value Reference Range Interpretation Comme nts UA COLOR (test code = COLU) STRAW discript YEL/STRAW UA APPEARANCE (test code = APPU) CLEAR discript CLEAR UA GLUCOSE DIPSTICK (test code = DGLUU) NEGATIVE mg/dL NEG UA BILIRUBIN DIPSTICK (test code = BILU) NEGATIVE mg/dL NEG UA KETONE DIPSTICK (test code = KETU) NEGATIVE mg/dL NEG UA SPECIFIC GRAVITY (test code = SGU) <=1.005 SG 1.005-1.030 UA BLOOD DIPSTICK (test code = HALIMA) TRACE mg/DL NEG A UA PH DIPSTICK (test code = TANYA) 6.0 pH UNITS 5.0-7.0 UA PROTEIN DIPSTICK (test code = PROU) NEGATIVE mg/dL NEG UA UROBILINIOGEN DIPSTICK (test code = URO) 0.2 mg/dL <2.0 UA NITRITE DIPSTICK (test code = KVNG) NEGATIVE SCREEN NEG UA LEUKOCYTE ESTERASE DIPSTICK (test code = LEUU) NEGATIVE Leuk/mcL NEGATIVE Indication for culture: RiskForSepsis-no oth srcSOURCE OF URINE: CLEAN CATCH BASIC METABOLIC [id number] 18:12:00* Test Item Value Reference Range Interpretation Comme nts SODIUM (test code = NA) 137 mmol/L 134-147 N POTASSIUM (test code = K) 3.1 mmol/L 3.4-5.0 L CHLORIDE (test code = CL) 107 mmol/L 100-108 N CARBON DIOXIDE (test code = CO2) 26 mmol/L 21-32 N ANION GAP (test code = GAP) 4.0 GAP calc 4.0-15.0 N GLUCOSE (test code = GLU) 94 MG/DL 70-110 N BLOOD UREA NITROGEN (test code = BUN) 11 MG/DL 7-18 N GLOMERULAR FILTRATION RATE (test code = GFR) >=60 max estimate estGFR >60 The Glomerular Filtration Rate is a calculated parameterbased on serum Creatinine, patient age and sex. GFR valuesless than 60 mL/min/1.73 square meters are indicative ofChronic Kidney Disease. Values less than 15 mL/min/1.73square meters indicate Kidney failure. The calculation forGFR is based on the CKD-EPI (202) calculation. This formulais race indifferent and is the recommended formula for GFRby the National Kidney Foundation for Adults.The GFR will not calculate if the sex is unknown or if thepatient's age is <18 years. CREATININE (test code = CREAT) 0.8 MG/DL 0.6-1.0 N CALCIUM (test code = CA) 9.1 MG/DL 8.5-10.1 N HEPATIC FUNCTION [id number] 18:12:00* Test Item Value Reference Range Interpretation Comme nts TOTAL PROTEIN (test code = PROT) 7.5 G/DL 6.4-8.2 N ALBUMIN (test code = ALB) 3.8 G/DL 3.4-5.0 N BILIRUBIN TOTAL (test code = BILT) 0.30 MG/DL 0.2-1.2 N BILIRUBIN DIRECT (test code = BILD) 0.10 MG/DL 0.00-0.30 N BILIRUBIN INDIRECT (test cod e = BILIND) 0.20 MG/DL 0.2-1.2 N SGOT/AST (test code = AST) 14 Unit/L 15-37 L SGPT/ALT (test code = ALT) 30 Unit/L 12-78 N ALKALINE PHOSPHATASE TOTAL ( test code = ALKP) 79 Unit/L 45-117 N CBC W/AUTO [id number] 17:49:00* Test Item Value Reference Range Interpretation Comme nts WHITE BLOOD CELL (test code = WBC) 9.1 K/mm3 3.5-11.0 N RED BLOOD CELL (test code = RBC) 4.79 M/mm3 4.70-6.10 N HEMOGLOBIN (test code = HGB) 14.5 G/DL 10.4-14.9 N HEMATOCRIT (test code = HCT) 41.9 % 31.5-44.1 N MEAN CELL VOLUME (test code = MCV) 87.5 Fl 84.5-98.6 N MEAN CELL HGB (test code = MCH) 30.3 pg 27.0-34.2 N MEAN CELL HGB CONCETRATION (test code = MCHC) 34.6 G/DL 31.5-34.0 H RED CELL DISTRIBUTION WIDTH (test code = RDW) 13.0 SD 11.5-14.5 N PLATELET COUNT (test code = PLT) 434 K/mm3 150-450 N MEAN PLATELET VOLUME (test c ode = MPV) 9.70 fL 7.0-10.5 N NEUTROPHIL % (test code = NT%) 52.5 % 40-76 N IMMATURE GRANULOCYTE % (test code = IG%) 0.2 % 0.0-5.0 N LYMPHOCYTE % (test code = LY%) 34.0 % 20.5-51.1 N MONOCYTE % (test code = MO%) 9.4 % 1.7-9.3 H EOSINOPHIL % (test code = EO%) 3.1 % 0.0-6.0 N BASOPHIL % (test code = BA%) 0.8 % 0.0-2.0 N NUCLEATED RBC % (test code = NRBC%) 0.0 /100WBC% 0.0-1.0 N NEUTROPHIL # (test code = NT#) 4.8 K/mm3 1.8-7.6 N IMMATURE GRANULOCYTE # (test code = IG#) 0.02 x10 3/uL 0.00-0.03 N LYMPHOCYTE # (test code = LY#) 3.1 K/mm3 0.6-3.2 N MONOCYTE # (test code = MO#) 0.9 K/mm3 0.3-1.1 N EOSINOPHIL # (test code = EO#) 0.3 K/mm3 0.0-0.4 N BASOPHIL # (test code = BA#) 0.1 K/mm3 0.0-0.1 N NUCLEATED RBC # (test code = NRBC#) 0.0 K/mm3 0.0-0.1 N infectious disease [id number] 03:20:00[facility] infectious disease [id number] 03:20:00Abnormal StatusPriv[facility] MedicalSURGICAL 2023-09-26 16:31:00* Test Item Value Reference Range Interpretation Comme nts SURGICAL (test code = SR) RUN DATE: 09/26/23 [facility] PAGE 1 RUN TIME: 1631 Specimen Inquiry RUN USER: INTERFACE PATIENT: MARIA DEL CARMEN RUIZ LOC: MiryamSRG U #: [id number] AGE/SX: 37/F ROOM: RE09/23/23[facility] DR: Ashley Rodriguez MD : 85 BED: DIS: STATUS: [facility] TLOC: SPEC #: [id number] RECD: 09/23/23 STATUS: RAKESH REJamia #: [id number] SANTY: 09/23/[address] [facility] [address]: Ashlye Rodriguez MD ENTERED: 09/23/23 SP TYPE: SURGICAL [facility] DR: ORDERED: [id number], 25752, ANATOMIC SPEC, SPECIMEN TRACK PROCEDURES: [id number] (09/23/23-2009) [id number] (09/26/23-1629) SPECIMEN TRACK (09/23/23) TISSUES: A. UTERINE CURETTINGS - LEFT UTERO SACRAL ENDO B. UTERINE CURETTINGS - UTERUS, CERVIX, TUBES LEFT OVARY FINAL DIAGNOSIS A. LEFT UTEROSACRAL REGION, BIOPSY: - Dense fibrous tissue with endometriosis. B. UTERUS, CERVIX, LEFT OVARY, AND BILATERAL FALLOPIAN TUBES, TOTAL HYSTERECTOMY, LEFT OOPHORECTOMY AND BILATERAL SALPINGECTOMY: - Cervix without dysplasia. - Proliferative endometrium. - Superficial adenomyosis. - Left ovary with endometrial cyst, 3 cm in greatest dimension. - Unremarkable fallopian tubes. - Paratubal cyst. - Specimen 70.6 g GROSS DESCRIPTION A. Left uterosacral endo. It consists of several pieces of red-brown partially cauterizedtissue fragments that measure aggregate of 2.2 x 1 x 0.6 cm. It is entirely submitted asA1. B. Uterus with left ovary and bilateral fallopian tubes. Received is a uterus withattached bilateral fallopian tubes and left ovary. The uterus alone weighs 70.6 g. Itmeasures cornu to cornu 4.5 cm, posterior to anterior 3.5 cm and fundus to cervix 6.8 cm.The cervix measures 3.5 x 3.2 cm. It has a cervical os transverse diameter of 0.5 cm. Thecervical canal is red-pink and measures 2.6 cm in length. The endometrial cavity istriangular in appearance and measures 2.5 x 2 cm. It is covered by endometrium of 0.3 cm.The uterine wall has a maximum thickness of 2 cm. The attached right fallopian tube withfimbriated end measures 4.5 cm in length and has a diameter of 0.6 cm. The left ovarymeasures 4.8 x 3.5 x 2.3 cm. Cut sections reveal a collapsed hemorrhagic cyst measuring 3x 3 x 2 cm. The cyst lining is covered by hemorrhagic surface with a wall thicknessranging 0.2-1.1 cm. No papillary features are identified. The fallopian tube withfimbriated end measures 4.5 cm in length and has a diameter of 0.6 cm. It is covered by asesame seed like plaque. CONTINUED ON NEXT PAGE RUN DATE: 09/26/23 [facility] PAGE 2 RUN TIME: 1631 Specimen Inquiry RUN USER: INTERFACE SPEC #: [id number]:[id number] PATIENT: MARIA DEL CARMEN RUIZ #[id number] (Continued) GROSS DESCRIPTION (Continued) B1 posterior cervixB2 anterior cervixB3-B4 posterior endomyometrium B5-B6 anterior endomyometriumB7 posterior reflection B8-B11 left ovarian cyst B12 left fallopian tube cut surface with entire bisected fimbriated end B13 right fallopian tube cut surface with entire bisected fimbriated end Technical tissue processing and slide preparation performed at [facility],[id number] , [place] [address] MICROSCOPIC DESCRIPTION A and B. Microscopic examination is performed and the findings are incorporated into thefinal diagnosis. Please see diagnosis for findings. Signed SIGNATURE ON FILE Moisés Matt 09/26/23 1631 END OF REPORT GLUCOSE BEDSIDE [id number] 13:09:00* Test Item Value Reference Range Interpretation Comme nts GLUCOSE BEDSIDE TESTING (anamaria t code = GLUBED) 85 mg/dL 70-110 N BASIC METABOLIC [id number] 12:19:00* Test Item Value Reference Range Interpretation [...] CA) 9.7 MG/DL 8.5-10.1 N CBC W/AUTO [id number] 12:06:00* Test Item Value Reference Range Interpretation [...] = NRBC#) 0.0 K/mm3 0.0-0.1 N URINALYSIS [id number] 12:00:00* Test Item Value Reference Range Interpretation [...] NEGATIVE Urine Specimen Type: Clean CatchUR HCG [id number] 12:00:00* Test Item Value Reference Range Interpretation Comme nts UR HCG QUAL (test code = HCGQLU) NEGATIVE NEGATIVE Urine Specimen Type: Clean CatchXR HAND <3 VW [id number] 21:43:26No sign of fracture or dislocation joint [facility] is well[facility]ained[facility] Notes Date/Time Note Provider Source 2023-11-10 08:22:00 [id number] l [id number] 03T08:22:00 [facility] ([facility])Discharge SummaryREPORT#:[id number] REPORT STATUS: SignedREPORT INITIALIZATION DATE:11/10/23 TIME: 821 PATIENT: MARIA DEL CARMEN RUIZ UNIT #: [id number]#: [id number] ROOM/BED: Adrien0-ADOB: [birth year] AGE: 38 SEX: F ATTEND: Jennifer Salazar MDADM AUTHOR: Douglas Orozco MDREPT SERVICE DT/TIME: 11/10/23821* ALL edits or amendments must be made on the electronic/computer document * PCP PCPDischarge to: home General InformationDate of admission:Observation Start Date: 11/08/23Date of admission: 11/08/23 Discharge date: 11/10/23Discharge diagnosis:post op TLHvaginal cellulitis (resolved) Hospital course:38 year old status post RA-TLH/BS/LSO/extensive lysis of pelvic adhesions (09/23)who was transferred from [facility] for pelvic abscesses. The patient's post operative course has been complicated by readmission for pelvic abscesses. She was transferred here for evaluation with a suspected vaginal cuff cellulitis vs.early pelvic abscesses. No infection collections were noted on imaging. She was treated for a vaginal cuff cellulitis with IV Clindamycin and GentamicinThe patient is afebrile and stable , she is tolerating diet and ambulation wellI spoke with her regarding Augmentin to take home. She reports safe previous useof this antibiotic. She will see her [employer] outpatient. Med Rec PCPPCP:PCP: Ashley Rodriguez MD ObjectiveVS/I OLast Documented: Result Date Time Pulse Ox 98 11/10 315 B/P 116/80 11/09 031 B/P Mean 92.1 11/10 315 Temp 97.5 11/10 315 Pulse 79 11/09 031 Resp 18 11/09 031 O2 Delivery Room air 11/08 1548 24 hour I O ending at 0700: 11/09 0700 11/08 1900 Intake Total 1540.00 1750.00 Output Total 50 Balance 1490.00 1750.00 Intake, IV 1000.00 950.00 Intake, Oral 540 800 Number Voids 3 5 Output, Stool 50 PATIENT WEIGHT: Weight (lb): 121Weight (oz): Weight (kg): 54.282522 General appearance: alert, awake, orientedCardiovascular: regular rate rhythmRespiratory: no distressGI: soft, non-tender ResultsResults: no new labs, labs reviewed, vital signs reviewed, vital signs stable, CT results reviewed Discharge Instructions PCPPCP:PCP: Ashley Rodriguez MD Discharge InstructionsAdditional Discharge Routines: PCP Follow-Up at 0831 RPT #:[id number] OF REPORT DSDischarge pbcfoaj7332-27-09R37:22:00F.[id number]- 0040AVAvailable for patient [id number]:31:27 [facility] 2023-11-09 10:32:00 [id number] d+aTq24ES17ch/xjKHw7L/LIh2tT5rX+tPr4838-9 11-08T10:32:00 [facility] ([facility])Gynecology Progress NoteREPORT#:[id number] REPORT STATUS: SignedREPORT INITIALIZATION DATE:11/09/23 TIME: 103 PATIENT: MARIA DEL CARMEN RUIZ UNIT #: [id number]#: [id number] ROOM/BED: [facility]-ADOB: [birth year] AGE: 38 SEX: F ATTEND: Jennifer Salazar MDA AUTHOR: Jessica Hickey I MDREPT SERVICE DT/TIME: 11/09/23 1032* ALL edits or amendments must be made on the electronic/computer document * SubjectivePatient reports:Yes: ambulating, pain controlled, pelvic pain (relatively improved), tolerating diet, voiding/urinating. No: complaints, abdominal pain (relatively imp), chills, fever, flatus/bowel movement (no BM x 2 days). Objective GeneralVS/I O:Last Documented: Result Date Time Pulse Ox 98 11/08 1127 B/P 132/94 03/02 1127 B/P Mean 106.7 11/08 1127 O2 Delivery Room air 11/08 1126 Temp 98.1 11/08 1127 Pulse 96 11/08 1127 Resp 17 11/08 1127 Vital SignsDate Temp Pulse Resp B/P B/P Mean Pulse Ox EyF347/01-11/08 97.7-98.1 86-99 16-19 100-133/70-97 80.1-107.8 94-100 Physical ExamHEENT: moist mucosal membranesRespiratory: no distressAbdomen: non-tender, soft, no CVA tenderness, no distention, no guarding, no reboundExtremities: moves all, no calf tenderness, no edemaNeuro/TOOL ROOM LATHE OPERATOR: alert, oriented X 3, normal speech ResultsFindings/Data:Laboratory Tests 11/08 0510 Hematology WBC (6.5 - 12.3 K/mm3) 8.6 RBC (3.51 - 4.69 M/mm3) 3.33 L Hgb (10.1 - 13.8 g/dL) 10.1 Hct (32.5 - 41.8 %) 30.5 L MCV (84.6 - 96.6 fL) 91.6 MCH (27.3 - 33.9 pg) 30.3 MCHC (32.0 - 34.2 gm/dL) 33.1 RDW (12.2 - 16.3 %) 13.3 Plt Count (134 - 363 K/mm3) 250 MPV (9.2 - 12.7 fL) 11.1 Neut % (Auto) (57.9 - 77.3 %) 55.0 L Lymph % (Auto) (14.5 - 29.7 %) 31.3 H [place] % (Auto) (3.6 - 10.2 %) 8.5 Eos % (Auto) (0.0 - 3.0 %) 4.2 H Baso % (Auto) (0.1 - 0.9 %) 0.8 Neut # (Auto) (K/mm3) 4.7 Lymph # (Auto) (K/mm3) 2.7 [place] # (Auto) (K/mm3) 0.7 Eos # (Auto) (K/mm3) 0.36 Baso # (Auto) (K/mm3) 0.1 Diagnosis, Assessment PlanFree Text A P:38 year old status post RA-TLH/BS/LSO/extensive lysis of adhesions (09/23 at outside facility) with suspected vaginal cuff cellulitis Plan:1. Vaginal cuff cellulitis. Clinically improving, WBC continues to trend down and 8.6 today. Continue Continue Day 2 Gentamicin and Clindamycin for coverage2. Constipation: Miralax prn at 2220 RPT #:[id number] OF REPORT PRProgress wzmr1837-30-36F11:32:00F.[id number] 0AVAvailable for patient wxkyZBJGPTLVLBUBFZ3830-18-17T00:21:20 [facility] 2023-11-08 09:52:00 [id number] x [id number] 09:52:00 [facility] ([facility])Gynecology Progress NoteREPORT#:[id number] REPORT STATUS: SignedREPORT INITIALIZATION DATE:11/08/23 TIME: 951 PATIENT: MARIA DEL CARMEN RUIZ UNIT #: [id number]#: [id number] ROOM/BED: [facility]-ADOB: [birth year] AGE: 38 SEX: F ATTEND: Jennifer Salazar MDADM AUTHOR: Steffany Byrne MDREPT SERVICE DT/TIME: 11/08/23 0952* ALL edits or amendments must be made on the electronic/computer document * SubjectivePatient reports:Yes: pelvic pain, tolerating diet. No: chills, fever, nausea, vomiting. External recordexternal records reviewed and verified hxhas hx of hysterectomy 09/23/2023hx of cholecystectomyhx of umbilical hernia repair is everyday smoker 1/2 PPD x 10 years + initial temp there: 99.3initial WBC count: 19.08 h/h 13.3/38.5 plts: 387 K: 3.3lfts/cmp remainder essentially wnlCr. 0.69UA reviewedlipase 157lactic acid: 1.22CT scan (do not have disc), fluid collection with incompletely rim enhancement at surgical bed on left just superior to vaginal stump/cuff. measuring 2.8 x 1.8 x 1.4 cm, similar on right side of cuff, measuring 1.1,x 2.1 x 1.0 cm, fat stranding around pelvisconcerning for early abscess formation with prominent bilateral iliac chain lymph nodes probably reactive Objective GeneralVS/I O:First Documented: Result Date Time Pulse Ox 100 11/07 0218 B/P 95/56 11/07 0218 B/P Mean 69 11/07 0218 O2 Delivery Room air 11/07 0218 Temp 97.9 11/07 0218 Pulse 84 11/07 0218 Resp 18 11/07 0218 Last Documented: Result Date Time Pulse Ox 98 11/07 0745 B/P 113/84 11/07 0745 B/P Mean 93.7 11/07 0745 O2 Delivery Room air 11/07 0745 Temp 97.9 11/07 0745 Pulse 93 11/07 0745 Resp 18 11/07 0745 24 hour I O ending at 0700: 03 0700 1900 Intake Total Output Total Balance Patient 121 lb Weight Weight Stated/Reported Measurement Method PATIENT WEIGHT: Weight (lb): 121Weight (oz): Weight (kg): 54.640932 Medications:Active Meds + DC'd Last 24 Hrs Clindamycin HCl/Dextrose (CLEOCIN 900MG IVPB - 50ML) 50 ML Q8H IV Gentamicin Sulfate/Sodium Chloride (GENTAMICIN 120MG/NS 100ML) 200 ML Q24H IV Ibuprofen (IBUPROFEN 800 MG TAB) 800 MG Q8H PO Oxycodone/Acetaminophen (PERCOCET TAB 5/325 MG) 1 TAB Q4H PRN PRN PO Lactated Ringer's (LACTATED RINGERS) 1,000 ML .H89A66K IV Physical ExamGeneral appearance: alert, awake, oriented, no acute distress, pleasant, sittingup in bedHEENT: moist mucosal membranesRespiratory: aerating well, symmetric expansionAbdomen: normal bowel sounds, non-tender, soft, no CVA tenderness, no distention, no guarding, no reboundExtremities: moves all, no calf tenderness, no edemaNeuro/TOOL ROOM LATHE OPERATOR: alert, oriented X 3, normal speech ResultsFindings/Data:Laboratory Tests Recent Impressions:CAT SCAN - CT ABD PELVIS W/CONT 11/07 09 Report Impression - Status: SIGNED Entered: 11/08/2023 0941 Some dependent lung atelectasis. Below the hemidiaphragms: Status post hysterectomy. Some fluid strandings and mesentericinflammations at the surgical site and at superior vaginal vault. Nodiscrete walled off collection. No free peritoneal air. Focal fatty infiltration along the falciform ligament. Portal vein ispatent.The gallbladder is surgically absent.The spleen is unremarkable.Unremarkable pancreas without peripancreatic inflammation.Normal adrenal glands. Both kidneys are unremarkable. No enhancing kidney mass. Nohydronephrosis or hydroureter. Unremarkable urinary bladder. Prior ventral hernia/umbilical hernia repair.No small or large bowel obstruction. A normal caliber appendix.The abdominal aorta is of normal caliber without dissection oraneurysm.No suspicious bony lesion. IMPRESSION: Status post hysterectomy. Some fluid strandings and mesentericinflammations at the surgical site and at superior vaginal vault.No discrete walled off collection.Impression By: [email or web address] - Barry Cook MD Laboratory Tests 11/08/23 1205:[Embedded Image Not Available]Laboratory Tests 11/07 1205 Hematology WBC (6.5 - 12.3 K/mm3) 13.8 H RBC (3.51 - 4.69 M/mm3) 3.98 Hgb (10.1 - 13.8 g/dL) 12.1 Hct (32.5 - 41.8 %) 35.1 MCV (84.6 - 96.6 fL) 88.2 MCH (27.3 - 33.9 pg) 30.4 MCHC (32.0 - 34.2 gm/dL) 34.5 H RDW (12.2 - 16.3 %) 13.1 Plt Count (134 - 363 K/mm3) 322 MPV (9.2 - 12.7 fL) 10.2 Neut % (Auto) (57.9 - 77.3 %) 65.6 Lymph % (Auto) (14.5 - 29.7 %) 22.2 [place] % (Auto) (3.6 - 10.2 %) 9.3 Eos % (Auto) (0.0 - 3.0 %) 2.0 Baso % (Auto) (0.1 - 0.9 %) 0.7 Neut # (Auto) (K/mm3) 9.1 Lymph # (Auto) (K/mm3) 3.1 [place] # (Auto) (K/mm3) 1.3 Eos # (Auto) (K/mm3) 0.28 Baso # (Auto) (K/mm3) 0.1 Results: labs reviewed, vital signs reviewed, reviewed records from [facility] facility and summarized above (started on clinda/gent at [facility]) Diagnosis, Assessment PlanFree Text A P:38 year old status post RA-TLH/BS/LSO/extensive lysis of adhesions with suspected vaginal cuff cellulitis vs. early pelvic abscesses-Repeat CT scan noted above, IR drainage not indicated based on CT scan performed here-Gent/Clinda continue for abx coverage- repeat cbc in am, today improved WBC count from 19,000--continue current mgmtPlan discussed with: patient, nurse at 1602 RPT #:[id number] OF REPORT PRProgress uini3238-98-00Y08:52:00F.IFQZ19865256-825 5AVAvailable for patient bctoMTHARZTFRFFPPO5343-15-57F34:02:52 [facility] 2023-11-08 06:44:00 [id number]A4ye 6 JJxtG+hUAnLJJql1cuPnTqgPLylEEE5ZElA6068-8 11-07T06:44:00 [facility] Admission H PREPORT#:[id number] REPORT STATUS: SignedREPORT INITIALIZATION DATE:11/08/23 TIME: 643 PATIENT: MARIA DEL CARMEN RUIZ UNIT #: [id number]#: [id number] ROOM/BED: [facility] [place]-ADOB: [birth year] AGE: 38 SEX: F ATTEND: Jennifer Salazar MDADM AUTHOR: Jennifer Salazar MDREPT SERVICE DT/TIME: 11/08/23 0644* ALL edits or amendments must be made on the electronic/computer document * History of Present IllnessChief complaint:Pelvic pain Free Text HPI NotesFree Text HPI Notes:38 year old stauts post RA-TLH/BS/LSO/extensive lysis of pelvic adhesions (09/23)who was transferred from [facility] for pelvic abscesses. The patient's post operative course has been complicated by readmission for pelvic abscesses. Todayshe reports that she just finished a course of antibiotics of on 11/02. She reports no vaginal bleeding or discharge. She denies any fevers or chills. History Past Surgical HistoryPast surgical history:Reports: Hysterectomy (Ventral hernia repair). Social HistoryAlcohol use: Denies EtOH useDrug use: Denies recreational drugsSmoking status for patients 13 years old or older: Heavy tobacco smoker Medication/Allergy-Vaccine HxMedications:Home Medications:Medication Dose/Rte/Freq Days Qty Entered Last Max Daily Dose Reviewed TIRZEPATIDE 7.5 MG SUBQ Q7D 09/20/23 (MOUNJARO PEN (2mL)) 1229Strength: 7.5 MG/0.5 MLPEN.INJCTR AMOXICILLIN/CLAV K 875 MG PO Q12H 10 20 10/22/23 (AUGMENTIN 875/125 MG) 1743Strength: 875 MG-125 MG TAB FLUCONAZOLE (DIFLUCAN) 150 MG PO 15 4 10/22/23Strength: 150 MG TAB EVERY 3 DAYS 1746 Hydrocodone/Acetaminophen 1-2 TAB PO 7 15 09/23/23 (HYDROcodone/APAP 5/325) Q6H PRN pain 1324Strength: 5 MG-325 MG TAB MDD 6 Hydrocodone/Acetaminophen 1 TAB PO 14 10/23/23 (HYDROcodone/APAP Q6H PRN PRN PAIN 0908 7.5/325) SCALE 7-10Strength: 7.5 MG-325 MG TAB KETOROLAC (TORADOL) 10 MG PO 20 10/23/23Strength: 10 MG TAB Q6H PRN PRN PAIN 0908 Current Hospital Medications:Anti-Infective Agents Sig/Anmol Start time Last Medication Dose Route Stop Time Status Admin Clindamycin HCl/ 50 ML Q8H 11/07 299 AC 11/07 Dextrose IV 11/14 025 0539 (CLEOCIN 900MG IVPB - 50ML) Gentamicin Sulfate/ 200 ML Q24H 11/07 299 AC Sodium Chloride IV 11/14 258 (GENTAMICIN 120MG/NS 100ML) Central Nervous System Agents Sig/Anmol Start time Last Medication Dose Route Stop Time Status Admin Ibuprofen 800 MG Q8H 11/07 299 AC 11/07 (IBUPROFEN 800 MG PO 01/06 025 0346 TAB) Oxycodone/ 1 TAB Q4H PRN PRN 11/07 299 AC 11/07 Acetaminophen PO 01/06 025 0345 (PERCOCET TAB 5/325 MG) Electrolytic, Caloric, And Lynn Sig/Anmol Start time Last Medication Dose Route Stop Time Status Admin Lactated Ringer's 1,000 ML .[id number] 11/07 244 AC 11/07 (LACTATED RINGERS) IV 01/06 0244 0346 Allergies:Coded Allergies:Penicillins (Severe, HIVES 09/20/23)acetaminophen (From TYLENOL #3) (Intermediate, VOMITING 09/20/23)codeine (From TYLENOL #3) (Intermediate, VOMITING 09/20/23)levofloxacin (From LEVAQUIN) (Intermediate, VOMITING 09/20/23)tramadol (Intermediate, VOMITING 09/20/23)Uncoded Allergies:LICORICE (10/28/23)RASPBERRIES (10/28/23) Review of SystemsAdditional notes:As per HPI Physical ExamVS/I OVital Signs: Date Time Temp Pulse Resp B/P B/P Pulse O2 O2 Flow FiO2 Mean Ox Delivery Rate 11/07 0320 98.2 89 18 113/81 91.5 100 Room air 11/07 0218 97.9 84 18 95/56 69 100 Room air 24 hour I O ending at 0700: 11/07 0700 1900 Intake Total Output Total Balance Patient 54.885 kg Weight Weight Stated/Reported Measurement Method PATIENT WEIGHT: Weight (lb): 121Weight (oz): Weight (kg): 54.944852 General appearance: alert, awake, orientedCardiovascular: regular rate rhythmAbdomen/GI: soft, non-tender, no guarding, no rebound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 K/mm3) 4.3 4.8 Lymph # (Auto) (0.6 - 3.2 K/mm3) 2.9 3.1 [place] # (Auto) (0.3 - 1.1 K/mm3) 0.9 0.9 Eos # (Auto) (0.0 - 0.4 K/mm3) 0.5 H 0.3 Baso # (Auto) (0.0 - 0.1 K/mm3) 0.1 0.1 Abs Immat Gran (auto) (0.00 - 0.03 x10 3/uL) 0.01 0.02 Immature Gran % (0.0 - 5.0 %) 0.1 0.2 Nucleated RBC % (0.0 - 1.0 /100WBC%) 0.0 0.0 Laboratory Tests 10/21 1731 Urines Urine Color (YEL/STRAW discript) STRAW Urine Appearance (CLEAR discript) CLEAR Urine pH (5.0 - 7.0 pH UNITS) 6.0 Ur Specific [place] (1.005 - 1.030 SG) <=1.005 Urine Protein (NEG mg/dL) NEGATIVE Urine Glucose (UA) (NEG mg/dL) NEGATIVE Urine Ketones (NEG mg/dL) NEGATIVE Urine Blood (NEG mg/DL) TRACE H Urine Nitrite (NEG SCREEN) NEGATIVE Urine Bilirubin (NEG mg/dL) NEGATIVE Urine Urobilinogen (<2.0 mg/dL) 0.2 Ur Leukocyte Esterase (NEGATIVE Leuk/mcL) NEGATIVE Radiology data:Recent Impressions:CAT SCAN - CT ABD PELVIS W/CONT 10/21 1834 Report Impression - Status: SIGNED Entered: 10/21/20231906 IMPRESSION: No acute abdominal or pelvic abnormality.Impression By: Marie Hudson M.D. InterpretationI independently reviewed the [ ] and my interpretation is [ ] Diagnosis, Assessment PlanConsultants: OBGYN Free Text DxA P NotesFree text DxA P notes:# Pelvic pain with vaginal discharge-S/p hysterectomy 09/23/2022 complicated by infection x 2-KIER DRIER Dr. Rodriguez has been consulted-Continue IV Zosyn antibiotic for empirical coverage-Pain management with as needed morphine-Further management per Dr. Rodriguez DVT prophylaxis: SCDsGI prophylaxis: PEPCIDDisposition Anticipated: Home with family support. Time Spent on Patient Care, Coordination and Counselin min. Code Status: Full code. at 1423 RPT #: [id number] OF REPORT PRProgress [id number]:21:00L.[id number] 1AVAvailable for patient tcgsGBELACYCHWLURL6452-21-15A77:23:38 [facility] 2023-10-21 21:20:00 [id number] s fagS/ZUIXrE7ZXtV7pXVSZCXzgdVTFO/Psk7656-2 10-21T21:20:00 [facility] ([facility])Hospitalist History PhysicalREPORT#:[id number] REPORT STATUS: SignedREPORT INITIALIZATION DATE:10/21/23 TIME:2119 PATIENT: MARIA DEL CARMEN RUIZ UNIT #: [id number]#: [id number] [address]QSK: [birth year] AGE: 38 SEX: F ATTEND: Mack Pack [facility] AUTHOR: Jacy Quick I APRNNPREPT SERVICE DT/TIME: 10/21/232119* ALL edits or amendments must be made on the electronic/computer document * Jacy Quick I 10/21/232119:History of Present Illness HPIChief complaint:Pelvic pain and dischargePCP:PCP: Ashley Rodriguez MD HPI:38-year-old female presents to the emergency department with complaints of lowerabdominal pain. She reports she had hysterectomy done on the of last month and then she started feeling this pelvic pain and bloody-mucoid discharge about 2-3 days ago. Patient was seen by her aircraft fueler today and was sent over for further evaluation for concerns of possible pelvic abscess. Patient has been onantibiotics by her aircraft fueler. CT A/P with no abnormal finding. Patient is admitted for antibiotic therapy and further management with OBGYN consultation. Hx Obtained From Patient, Prior medical records HistorySmoking status for patients 13 years old or older: Current every day smoker Medication/Allergy-Vaccine HxAllergies:Coded Allergies:Penicillins (Mild, RSAH 10/21/23)levofloxacin (From LEVAQUIN) (THROAT SWELLING 10/21/23)Uncoded Allergies:LICORICE (03/01/09)RASPBERRIES (03/01/09) Review of SystemsMusculoskeletal:other (pelvic pain). Objective GeneralVS/I O:Vital Signs: Date Time Temp Pulse Resp B/P B/P Pulse O2 O2 Flow FiO2 Mean Ox Delivery Rate 10/22 0000 85 21 126/83 100 100 10/21 2300 88 21 117/85 98 100 10/21 2200 89 34 137/90 109 100 10/21 2155 90 26 138/91 109 100 10/21 1700 99.0 103 17 133/93 106 100 Room air 24 hour I O ending at 0700: 10/22 0700 10/21 1900 Intake Total Output Total Balance Patient 57.727 kg Weight Weight Stated/Reported Measurement Method PATIENT WEIGHT: Weight (lb): Weight (oz): Weight (kg): 57.727 Medications:Active Meds + DC'd Last 24 HrsFamotidine (PEPCID) 20 MG BID AC PO Piperacillin Sod/Tazobactam Sod (ZOSYN) 3.375 GM Q8HR IV Sodium Chloride (SODIUM CHLORIDE 0.9%) 100 MLAcetaminophen (TYLENOL) 650 MG Q4H PRN PRN PO Al Hydrox/Mg Hydrox/Simethicone (MYLANTA) 30 ML Q4H PRN PRN PO Docusate Sodium (COLACE) 100 MG BID PRN PRN PO Hydralazine HCl (APRESOLINE) 10 MG Q6H PRN PRN IV Hydrocodone Bitart/Acetaminophen (NORCO 7.5/325) 1 TAB Q6H PRN PRN PO Ondansetron HCl (ZOFRAN) 4 MG Q6H PRN PRN IV Sodium Chloride (0.9% Sodium Chloride) 1,000 ML .[id number] IV Tramadol HCl (ULTRAM) 50 MG Q6H PRN PRN PO Zolpidem Tartrate (AMBIEN) 5 MG BEDTIME PRN PRN PO Sodium Chloride (0.9% Sodium Chloride) 1,000 ML ONCE ONE IV (DC) Piperacillin Sod/Tazobactam Sod (ZOSYN) 3.375 GM X1ED STA IV (DC) Sodium Chloride (SODIUM CHLORIDE 0.9%) 100 MLIopamidol (ISOVUE-300) 0 .STK-MED ONE IV (DC) Sodium Chloride (0.9% Sodium Chloride) 50 ML .STK-MED ONE IV (DC) Physical ExamGeneral appearance: alert, awake, oriented, no acute distressHead/Eyes: atraumatic, normocephalic, PERRLAENT: moist mucosal membranes, normal dentition, normal noseNeck: full range of motion, non-tender, no JVDCardiovascular: normal capillary refill, normal heart sounds, regular rate rhythmRespiratory: aerating well, clear to auscultation, symmetric expansion, no distressAbdomen: non-tender, normal bowel sounds, soft, no distentionGenitourinary: no flank pain Vascular pulse assess:Palpatated: R radial, L radial, R dorsalis pedis, L dorsalis pedis. Neuro/TOOL ROOM LATHE OPERATOR: alert, oriented X 3, CNII-XII intactSkin: dry, intact, normal color, normal temperature, no rashPsychiatry: normal affect, normal mood ResultsFindings/Data:Laboratory Tests 10/21 10/21 1954 1731 Chemistry Sodium (134 - 147 mmol/L) 137 Potassium (3.4 - 5.0 mmol/L) 3.1 L Chloride (100 - 108 mmol/L) 107 Carbon Dioxide (21 - 32 mmol/L) 26 Anion Gap (4.0 - 15.0 GAP calc) 4.0 BUN (7 - 18 MG/DL) 11 Creatinine (0.6 - 1.0 MG/DL) 0.8 Glomerular Filtr Rate (>60 estGFR) >=60 max estimate Glucose (70 - 110 MG/DL) 94 Lactic Acid (0.4 - 2.0 mmol/L) 0.9 Calcium (8.5 - 10.1 MG/DL) 9.1 Total Bilirubin (0.2 - 1.2 MG/DL) 0.30 Direct Bilirubin (0.00 - 0.30 MG/DL) 0.10 Indirect Bilirubin (0.2 - 1.2 MG/DL) 0.20 AST (15 - 37 Unit/L) 14 L ALT (12 - 78 Unit/L) 30 Total Alk Phosphatase (45 - 117 Unit/L) 79 Total Protein (6.4 - 8.2 G/DL) 7.5 Albumin (3.4 - 5.0 G/DL) 3.8 Laboratory Tests 10/21 1731 Hematology WBC (3.5 - 11.0 K/mm3) 9.1 RBC (4.70 - 6.10 M/mm3) 4.79 Hgb (10.4 - 14.9 G/DL) 14.5 Hct (31.5 - 44.1 %) 41.9 MCV (84.5 - 98.6 Fl) 87.5 MCH (27.0 - 34.2 pg) 30.3 MCHC (31.5 - 34.0 G/DL) 34.6 H RDW (11.5 - 14.5 SD) 13.0 Plt Count (150 - 450 K/mm3) 434 MPV (7.0 - 10.5 fL) 9.70 Neut % (Auto) (40 - 76 %) 52.5 Lymph % (Auto) (20.5 - 51.1 %) 34.0 [place] % (Auto) (1.7 - 9.3 %) 9.4 H Eos % (Auto) (0.0 - 6.0 %) 3.1 Baso % (Auto) (0.0 - 2.0 %) 0.8 Neut # (Auto) (1.8 - 7.6 K/mm3) 4.8 Lymph # (Auto) (0.6 - 3.2 K/mm3) 3.1 [place] # (Auto) (0.3 - 1.1 K/mm3) 0.9 Eos # (Auto) (0.0 - 0.4 K/mm3) 0.3 Baso # (Auto) (0.0 - 0.1 K/mm3) 0.1 Abs Immat Gran (auto) (0.00 - 0.03 x10 3/uL) 0.02 Immature Gran % (0.0 - 5.0 %) 0.2 Nucleated RBC % (0.0 - 1.0 /100WBC%) 0.0 Laboratory Tests 10/21 1731 Urines Urine Color (YEL/STRAW discript) STRAW Urine Appearance (CLEAR discript) CLEAR Urine pH (5.0 - 7.0 pH UNITS) 6.0 Ur Specific [place] (1.005 - 1.030 SG) <=1.005 Urine Protein (NEG mg/dL) NEGATIVE Urine Glucose (UA) (NEG mg/dL) NEGATIVE Urine Ketones (NEG mg/dL) NEGATIVE Urine Blood (NEG mg/DL) TRACE H Urine Nitrite (NEG SCREEN) NEGATIVE Urine Bilirubin (NEG mg/dL) NEGATIVE Urine Urobilinogen (<2.0 mg/dL) 0.2 Ur Leukocyte Esterase (NEGATIVE Leuk/mcL) NEGATIVE Radiology data:Recent Impressions:CAT SCAN - CT ABD PELVIS W/CONT 10/21 1835 Report Impression - Status: SIGNED Entered: 10/21/2023 1907 IMPRESSION: No acute abdominal or pelvic abnormality.Impression By: Marie Hudson M.D. Results: labs reviewed, vital signs reviewed, vital signs stable Diagnosis, Assessment PlanProblem List/A P: 1. Abdominal pain 2. Vaginal discharge Orders: Procedure Date/time Status REGULAR DIET 10/22 B Active PHOSPHOROUS 10/22 0500 Active MAGNESIUM 10/22 0500 Active COMPREHENSIVE METABOLIC PANEL 10/22 0500 Active COAGULATION I PROFILE 10/22 0500 Active CBC W/AUTO DIFF 10/22 0500 Active Vital Signs + 10/21 2108 Active Telemetry Removal 10/21 2108 Active Telemetry Monitoring 10/21 2108 Active Educate/Teach Patient + 10/21 2108 Active Sequential Compression Device 10/21 2108 Active Notify MD - Labs 10/21 2108 Active Notify MD - Vitals 10/21 2108 Active MRSA Protocol 10/21 2108 Active IV: Monitor+ 10/21 2108 Active Intake Output 10/21 2108 Active Consultants: OBGYNPlan discussed with: patient, consultants, nurseTime spent: Time spent on patient care (minutes): 45 Code Status/Resusc. DiscussionCode status: full code Free Text DxA P NotesFree Text DxA P Notes: # Pelvic pain with vaginal discharge- possible pelvic infection-KIER DRIER Dr. Rodriguez has been consulted-Continue IV Zosyn antibiotic for empirical coverage-Pain management with as needed hydrocodone-CBC with differential next a.m.-Further management per Dr. Rodriguez DVT prophylaxis: SCDsGI prophylaxis: PEPCIDDisposition Anticipated: Home with family support. Time Spent on Patient Care, Coordination and Counselin min. Code Status: Full code. Mack Pack 10/23/23 1301:Attestations Physician AttestationAgree w/findings plan:Appreciate note from NPAgree with the history and physical findingsLab works notedImaging noted as wellFindings were discussed with the PETERSON and Staff at 1231 at 1301 RPT #: [id number] OF REPORT HPHistory and physical ybfzzqrfdoq5483-33-31O60:20:00L.[id number] for patient lcksPLHOCJSADZMWBE7656-10-38U87:31:42 [facility] 2023-10-21 17:54:00 [id number] b u8tfvnw/JfuInJc2t1CTP10WtqK9cNIawz/10-21T17:54:00 [facility])EMERGENCY PROVIDER REPORTREPORT#:[id number] REPORT STATUS: SignedDATE:10/21/23 TIME:1753 PATIENT: MARIA DEL CARMEN RUIZ UNIT #: [id number]#: [id number] [address]NOM: [address] AGE: 38 SEX: F PCP PHYS: Ashley Rodriguez AUTHOR: Joe Torres PRE KINDERGARTEN TEACHER * ALL edits or amendments must be made on the electronic/computer document * Joe Torres 10/21/231753:HPI-Abd Pain F 40 and Over Free Text HPI NotesFree Text HPI Zwxoa01-uadd-iic female presents to the emergency department with complaints of lowerabdominal pain. Patient was seen by her aircraft fueler today and was sent over for further evaluation for concerns of possible pelvic abscess. Patient has been on antibiotics by her aircraft fueler. Patient also reports vaginal discharge. GeneralConfirmed Patient YesInitial Greet Date/Time 10/21/23 1650 PresentationChief Complaint Abdominal painHx Obtained From Patient, Prior medical recordsSudden in Onset? NoCaused by No trauma by historyQuality PainfulAssociated withReports: Chills, Fever, Vaginal bleeding, Vaginal discharge. Denies: Dysuria, Shortness of breath, Urinary frequency, Urinary retention, Urinary tract symptoms, Vomiting. Exacerbated by NothingRelieved by Nothing Risk-Abd Pain F 40 and Over)( Abdominal Aortic Aneurysm Risk factors reviewed Review of Systems ROS StatementsAll systems rev neg except as marked. Basic Review of SystemsBasic ROS EYES: No redness, ENT: No sore throat, HEM: No bleeding/bruising, SKIN: No rash, NEURO: No change MS, NEURO: No focal deficit, PSYCH: NL thought content Past Medical History - AdultStated Complaint NEED A CAT SCAN AND BLOOD WORKAllergiesCoded Allergies:Penicillins (Mild, RSAH 10/21/23)levofloxacin (From LEVAQUIN) (THROAT SWELLING 10/21/23)Uncoded Allergies:LICORICE (03/01/09)RASPBERRIES (03/01/09) Calculated Suicide Risk (nurs) No riskSmoking status for patients 13 years old or older: Current every day smoker Physical Exam Vital SignsVital SignsFirst Documented: Result Date Time Pulse Ox 100 02/12 1700 B/P 133/93 10/21 1699 B/P Mean 106 10/21 1700 O2 Delivery Room air 10/21 1699 Temp 37.2 10/21 1699 Pulse 103 10/21 1699 Resp 10/21 Last Documented: Result Date Time Pulse Ox 100 10/21 1699 B/P 133/93 10/21 1699 B/P Mean 106 10/21 1700 O2 Delivery Room air 10/21 1699 Temp 37.2 10/21 1699 Pulse 103 10/21 1699 Resp 17 10/21 1699 Review of Vital Signs Reviewed Free Text PE NotesFree Text PE Notes General/Const: Awake, Alert, No acute distress, Well appearing, Well hydrated,MS Head: Atraumatic, NormocephalicEyes Atraumatic: EOMI, No nystagmus, No periorbital swelling, No scleral icterusEars/Nose/Throat: Atraumatic, Airway patent, Mucous membranes moist, Pharynx NL, No trismusMS Neck: Atraumatic, Supple, No meningismus, Full range of motionRespiratory/Chest: Atraumatic, Breath sounds NL, Breath sounds = bilat, No respiratory distressCardiovascular: Heart rate NL, Regular rhythm, Cap refill not delayed, Peripheral circulation NLAbdomen/GI: Atraumatic, Soft, tender in suprapubic, no distentionBack: Atraumatic, Full range of motion, Non-tenderSkin: Skin Atraumatic, Color NL, No rash, Warm, Dry, Intact, Turgor NL, No swellingNeurologic: Oriented X3, Speech NL, No motor deficits, Cerebellar NL, Memory NL, Gait NL Psychiatric: Affect NL, Mood NL, Cognitive function NL, Judgment/insight NL, Thought content NL Interpretation Diagnostics Lab Results InterpretationConsiderations Independ review imagingResultsLaboratory Tests 10/21/231730:[Embedded Image Not Available]Laboratory Tests: 10/21 1730 Chemistry Sodium (134 - 147 mmol/L) 137 Potassium (3.4 - 5.0 mmol/L) 3.1 L Chloride (100 - 108 mmol/L) 107 Carbon Dioxide (21 - 32 mmol/L) 26 Anion Gap (4.0 - 15.0 GAP calc) 4.0 BUN (7 - 18 MG/DL) 11 Creatinine (0.6 - 1.0 MG/DL) 0.8 Glomerular Filtr Rate (>60 estGFR) >=60 max estimate Glucose (70 - 110 MG/DL) 94 Calcium (8.5 - 10.1 MG/DL) 9.1 Total Bilirubin (0.2 - 1.2 MG/DL) 0.30 Direct Bilirubin (0.00 - 0.30 MG/DL) 0.10 Indirect Bilirubin (0.2 - 1.2 MG/DL) 0.20 AST (15 - 37 Unit/L) 14 L ALT (12 - 78 Unit/L) 30 Total Alk Phosphatase (45 - 117 Unit/L) 79 Total Protein (6.4 - 8.2 G/DL) 7.5 Albumin (3.4 - 5.0 G/DL) 3.8 Hematology WBC (3.5 - 11.0 K/mm3) 9.1 RBC (4.70 - 6.10 M/mm3) 4.79 Hgb (10.4 - 14.9 G/DL) 14.5 Hct (31.5 - 44.1 %) 41.9 MCV (84.5 - 98.6 Fl) 87.5 MCH (27.0 - 34.2 pg) 30.3 MCHC (31.5 - 34.0 G/DL) 34.6 H RDW (11.5 - 14.5 SD) 13.0 Plt Count (150 - 450 K/mm3) 434 MPV (7.0 - 10.5 fL) 9.70 Neut % (Auto) (40 - 76 %) 52.5 Lymph % (Auto) (20.5 - 51.1 %) 34.0 [place] % (Auto) (1.7 - 9.3 %) 9.4 H Eos % (Auto) (0.0 - 6.0 %) 3.1 Baso % (Auto) (0.0 - 2.0 %) 0.8 Neut # (Auto) (1.8 - 7.6 K/mm3) 4.8 Lymph # (Auto) (0.6 - 3.2 K/mm3) 3.1 [place] # (Auto) (0.3 - 1.1 K/mm3) 0.9 Eos # (Auto) (0.0 - 0.4 K/mm3) 0.3 Baso # (Auto) (0.0 - 0.1 K/mm3) 0.1 Abs Immat Gran (auto) (0.00 - 0.03 x10 3/uL) 0.02 Immature Gran % (0.0 - 5.0 %) 0.2 Nucleated RBC % (0.0 - 1.0 /100WBC%) 0.0 Urines Urine Color (YEL/STRAW discript) STRAW Urine Appearance (CLEAR discript) CLEAR Urine pH (5.0 - 7.0 pH UNITS) 6.0 Ur Specific [place] (1.005 - 1.030 SG) <=1.005 Urine Protein (NEG mg/dL) NEGATIVE Urine Glucose (UA) (NEG mg/dL) NEGATIVE Urine Ketones (NEG mg/dL) NEGATIVE Urine Blood (NEG mg/DL) TRACE H Urine Nitrite (NEG SCREEN) NEGATIVE Urine Bilirubin (NEG mg/dL) NEGATIVE Urine Urobilinogen (<2.0 mg/dL) 0.2 Ur Leukocyte Esterase (NEGATIVE Leuk/mcL) NEGATIVE Microbiology: Date/Time Procedure - Status Source Growth 10/21 174 Blood Culture - COMP BLOOD 10/21 1731 Blood Culture - COMP BLOOD Recent Impressions:CAT SCAN - CT ABD PELVIS W/CONT 10/21 1835 Report Impression - Status: SIGNED Entered: 10/21/2023 1907 IMPRESSION: No acute abdominal or pelvic abnormality.Impression By: Marie Hudson M.D. Lab Imaging StatementLaboratory radiographic studies reviewed and considered in the medical decision-making. Re-Evaluation MDM )( Re-Evaluation/Progress #1)( Re-Eval Status ImprovedPlan Post Re-Eval Plan admit ED CoursePatient Course Stable Notes Reviewed Specialist/consult note ConsultationConsultation Referral/Consult Name Ashley Rodriguez MD Architecture Internship Called [facility]IER D[facility] [employer] Discussed with oracle manufacturing consultant, Will see patient Requested Call Date 10/21/23 Call Returned Call returned Free Text Consult NotesDiscussed lab and imaging reports, requested patient to be admitted to hospital service, IV antibiotics initiated, and will see patient. Differential Diagnosis)( Differential Diagnosis Acute abdominal pain, Bladder outlet obstruct, Bowel obstruction, Diverticular disease, Postop complication, Sepsis?, Urinary tract infection Findings/Social DeterminantsPresentation SubacuteSeverity Evaluation Serious conditionDiagnosis Appears Evident Patient Discharge Departure Clinical ImpressionClinical ImpressionPrimary Impression: Abdominal pain Disposition DecisionHospitalize Hosp Physician Name Mack Pack MD [facility] Physician Hospitalist Request Time 1928 Request Date 10/21/23 )( Accepts Hospitalization Yes )( Reason for HospitalizationAbdominal pain )( Accepted Time 1928 )( Accepted Date 10/21/23 Call Information will see patient Discharge/Care PlanCounseled Regarding Diagnosis, Lab results, Imaging studies, Need for admission Admit NoteI have spoken with the patient and/or caregivers. I have explained the patient'scondition, diagnoses and treatment plan based on the information available to meat this time. I have answered the patient's and/or caregiver's questions and addressed any concerns. The patient and/or caregivers have as good an understanding of the patient's diagnosis, condition and treatment plan as can beexpected at this point. The patient has been stabilized within the capability ofthe emergency department. The patient will be transported for further care and management or will be moved to an observation or inpatient service. I have communicated with the staff or medical practitioner taking over this patient's care. Wei Hyman 10/21/23 183:Past Medical History - AdultHome MedicationsDiscontinued Reported MedicationsTIRZEPATIDE (MOUNJARO PEN (2mL)) 10 MG SUBQ Q7D Interpretation Diagnostics ECG #1 InterpretationText/Dict NoteSinus rhythm with sinus arrhythmia rate 72, normal axis, QTc 431, no STEMI, as read by me. Re-Evaluation MDM ED CourseMedication(s) OrderedMedication(s) Ordered:Diagnostic Agents Sig/Anmol Start time Last Medication Dose Route Stop Time Status Admin Iopamidol 0 .STK-MED ONE 10/21 1807 DC 10/21 IV 1833 Electrolytic, Caloric, And Lynn Sig/Anmol Start time Last Medication Dose Route Stop Time Status Admin Sodium Chloride 50 ML .STK-MED ONE 10/21 180 DC 10/21 IV 183 Patient Discharge Departure Vital Signs/ConditionVital SignsFirst Documented: Result Date Time Pulse Ox 100 10/21 1700 B/P 133/93 10/21 1700 B/P Mean 106 10/21 1700 O2 Delivery Room air 10/21 1700 Temp 37.2 10/21 1700 Pulse 103 10/21 1700 Resp 17 10/21 1700 Last Documented: Result Date Time Pulse Ox 100 10/21 1700 B/P 133/93 10/21 1700 B/P Mean 106 10/21 1700 O2 Delivery Room air 10/21 1700 Temp 37.2 10/21 1700 Pulse 103 10/21 1700 Resp 17 10/21 1700 All vital signs available at the time of this entry have been reviewed. Discharge/Care Plan(Auto) PrescriptionsCurrent Visit ScriptsAMOXICILLIN/CLAV K (AUGMENTIN 875/125 MG) 875 MG PO Q12H 10 Days #20 TABS FLUCONAZOLE (DIFLUCAN) 150 MG PO EVERY 3 DAYS 15 Days #4 TAB Hydrocodone/Acetaminophen (HYDROcodone/APAP 7.5/325) 1 TAB PO Q6H PRN PRN PAIN SCALE 7-10 Hydrocodone/Acetaminophen (HYDROcodone/APAP 7.5/325) 1 TAB PO Q6H PRN PRN PAIN SCALE 7-10 #14 TAB KETOROLAC (TORADOL) 10 MG PO Q6H PRN PRN PAIN KETOROLAC (TORADOL) 10 MG PO Q6H PRN PRN PAIN #20 TABS Free Text Depart NotesFree Text Depart NotesThis patient was assigned to me in error and I was not involved in care. at 0027 at 0813 RPT #: [id number] OF REPORTEDEmergency department [id number]:54:00L.[id number] for patient [id number]:28:15 [facility] 2023-09-23 19:46:00 [id number] 09-23T19:46:[id number] [facility] [address] [place] [id number] PATIENT NAME: MARIA DEL CARMEN RUIZ ADMIT DATE: 09/23/23ACCOUNT NO: [id number] ROOM NO: AGE: 38 REPORT TYPE: OPERATIVE REPORT SEX: F ADMITTING PHYSICIAN: ATTENDING PHYSICIAN: Ashley Rodriguez MD OPERATION DATE: 09/23/2023 PREOPERATIVE DIAGNOSES: Pelvic pain, left complex ovarian cyst. POSTOPERATIVE DIAGNOSES: Pelvic pain, stage IV endometriosis, adhesions to the ventral hernia mesh. PROCEDURES PERFORMED: Diagnostic laparoscopy with extensive lysis of adhesions done laparoscopically, then robotic total laparoscopic hysterectomy, bilateral salpingectomy, left oophorectomy, endometrioma excision, endometriosis, extensive excision in the pelvic cavity, cystoscopy. SURGEON: Ashley Rodriguez MD SEED POTATO CUTTER: Joe Pettit. ANESTHESIA: General endotracheal. FINDINGS: Anterior abdominal wall completely obliterated with mid part of the anterior abdominal wall, completely adhered with dense omental adhesions to the ventral hernia mesh. These were to be taken down with the help of LigaSure and for any robotic ports could be placed. Then, left endometrioma that had to be drained and excised from the lateral aspect of the sigmoid colon, left lateral wall, posterior broad ligament and uterosacral ligament. Then, endometriosis on the right uterosacral ligament was ablated, nodular endometriosis on the left was excised. Right ovary was normal and was preserved. Left tube and ovary along with right tube and uterus were all removed. The cuff was closed in 2 layers with 2-0 V-Loc. Hemostasis was secured, additionally with the help of Surgicel powder. Cystoscopy was performed at the end of the procedure and ureteric orifices were patent. No evidence of any trauma. COMPLICATIONS: No complications. ESTIMATED BLOOD LOSS: 75 mL. URINE OUTPUT: 150 mL. FLUIDS: 1000 mL. SPECIMENS: Uterus, bilateral tubes, left ovary and left uterosacral endo. PATIENT NAME: MARIA DEL CARMEN RUIZ APPROACH: Laparoscopic and robotic. WOUND CLASS: Clean contaminated. DISPOSITION: Home. COUNTS: Correct. PROCEDURE IN DETAIL: After informed consent was verified, the patient was takenback to the OR. She is a diabetic and smoker. was stopped for preventionof aspiration pneumonia and for avoidance of complications from gastroparesis before the procedure. A1c was decently controlled. CA-125 was normal. The patient was evaluated, given options of treatment and given significant pelvic pain. She wanted to proceed with hysterectomy, left oophorectomy. She wanted astage I. Both ovaries preserved if possible for 4 months. She has been extensively counseled about tobacco cessation, complications besides the fact that she also has higher risk from being a diabetic. Glycemic control was also reviewed with the patient preoperatively. She was consented and brought to the OR. Preoperatively, and sister were present and we consented, taken back to OR, 2 grams of Ancef were given. She was placed in supine fashion on operating table. General anesthesia was given. She was placed in dorsal lithotomy position using Lavelle stirrups. Abdomen prepped with ChloraPrep and vulva, vagina, and perineum with Betadine. Arms tucked by the side. The patientwas anxious preoperatively and postoperatively when she woke up. Timeout was done. Positioning was checked. Arms were tucked properly. SCDs started. Timeout was done and procedure started. Left upper quadrant incision was placed to start the placement of ports and insufflation. This was done in open fashion, incising the anterior fascia, rectus fascia, external oblique fascia and then next, the inner layer of the fascia. These were tied with 0 Vicryl sutures. Then, peritoneum entered sharply with Metzenbaum scissors. Foster introduced and trocar introduced. There was a 10 port that placed here with a balloon. Then, an 8 port was placedin left lateral aspect, 8 cm apart from the left upper quadrant incision. The adhesions were visualized and taken down systematically with the help of a grasper. Scissors and LigaSure as needed once all the adhesions were taken down. Then, I was able to visualize the infraumbilical area and an 8 port was placed through it after making an incision with the help of a scalpel and with the 8 robotic port. Then, two other incisions were made 8 cm apart from each other at this level. The right lateral aspect and trocars placed. The 10 port was switched over to an 8, 10 AirSeal port and sutures held with a hemostat to be snug and prevent leakage. Speculum was placed to expose the cervix. Anterior lip was grasped with single tooth tenaculum, dilated to 16-Solomon Islander and 3.5 cm cup uterine manipulator was introduced and fixed in place. Genao was placed to drain the bladder and attached to drainage bag. This area was draped. The patient was placed in T-tiara at 23 degrees and the robot was docked in an oblique fashion from the left. Camera arm was attached, targeting was complete. All other arms were attached. Instruments were inserted and advanced under direct vision to the pelvis. A fenestrated bipolar in arm #1, scissors in arm #3, and Cardia forceps in arm #4. All the ports were burped, I went to the PATIENT NAME: MARIA DEL CARMEN RUIZ console. Left endometrioma excision and the endometrioma on the left side was very obvious, the colon was significantly and densely adhered to this. This was first taken down with the help of sharp dissection using scissors. The colon was also attached to the uterosacral ligament, which the endometrium was attached to and once this was taken down, the cul-de-sac was opened up and sigmoid colon was released from the left lateral wall. Once this was done, ovarian adhesions were taken down from the left lateral wall, freeing up the ovary from the lateral aspect. The endometrium had drained at its attachment tothe uterosacral ligament. Once this was all suctioned out, the endometrium was giving space with uterosacral and the ovary and taken down from the uterosacral. Once the ovary was completely freed up, the uteroovarian ligament was cauterized and cut. Then, I started the dissection laterally. The left round ligament was picked up very much lateral near the internal inguinal ring, cauterized and cut. Once this was , the broad ligament was dissected parallel to the IP ligament. Then, laterally the peritoneum between the ureter and IP, the proximal part of the pelvis was identified and cut sharply. From this ovarian pedicle that was isolated, it was cauterized andcut with the bipolar and monopolar and posterior peritoneum taken down towards the uterus, dropping the ureter down. The ureter was densely adhered to the medial aspect of the peritoneal reflection. Endometriosis was excised from here to the uterosacral ligament, keeping the ureter safe. The vessels were identified and ureter was difficult dissected theureter tunnel and that was adhered to the medial leaf of the broad ligament. This was safely dropped down, exposing and the vessels. Once this was done, attention directed to the anterior peritoneum to incise it from the division of the round ligament all the way to complete the bladder flap on the opposite side. The bladder was dissected inferiorly, sharply with scissors exposing the anterior vaginal wall. Then, uterine vessels were fully exposed onthe left side and I moved on to the opposite side. The tube and the mesosalpinx were taken down with the help of bipolar and monopolar. The uteroovarian ligament was cauterized and cut as well as the round ligament. The anterior broad ligament connected to finish the bladder flap and posterior broad ligament taken down to the right uterosacral. Here, there was an implant that just need an ablation, which was nicely identified laterally. Then, the uterosacral ligament attachment was kept in the distal wall. Then, I took down the posterior peritoneum to expose the vessels posteriorly and anteriorly. The vessels were taken down with the help of bipolar and then cut with scissors. Then, both artery and vein were taken down. Then, the cardinal ligaments were taken down and posteriorly, the cup was cleared and the peritoneal incision was made here, excising the endometriosis here flow or the level of the cuff as well. Then, going on the left side,the endometriosis was excised from the distal nodular uterosacral, could be either scar or just endometriosis. Coming to the left side, vessels were taken down, cardinal ligaments were taken down. Circumferential colpotomy performed. The monopolar hook blade and specimen detached and pulled out through the vagina. The left lateral bleeding near the cardinal ligament was cauterized and cut with the help of bipolar fenestrated graspers. A 2-0 V-Loc was used to close the vaginal cuff in 2 PATIENT NAME: MARIA DEL CARMEN RUIZ layers, starting one suture at each angle and coming down and fulgurating in 2 layers. Once this was done, thorough hemostasis was secured. The Surgicel powder was sprayed and then the anterior abdominal wall was checked for hemostasis and Surgicel powder was sprayed over here as well. All the trocars were removed under direct vision. The fascial incision in the left upper quadrant port site was closed with help of tagged 0 Vicryl sutures tied to each other. All other port sites were closed at the level of the skin with interrupted 5-0 Monocryl. The vaginal bulb was removed. Cystoscopy was performed with a 30-degree lens, a 17-Solomon Islander sheath and normal saline. Excellent jets of urine from both ureteral orifices. No evidence of any trauma to the bladder. Bladder was then partially drained and the patient was taken from anesthesia and taken to PACU in stable condition. She had with around and sister, debriefed about her procedure. Dictated By: Ashley Rodriguez MD Date Dictated: 09/23/2023 19:46:56Date Transcribed: 09/23/2023 22:13:34DUNIA/EMELIA/DALIA/Waldemar #: [id number] ID: [id number] by Ashley Rodriguez MD On 10/21/2023 05:24:23 PM at 0524 PATIENT NAME: MARIA DEL CARMEN RUIZ [id number]:13:00L.[id number] 01AVAvailable for patient [id number]:25:02 [facility] 2023-09-23 18:56:00 [id number] + [id number]/[id number] 8:56:00 [facility]entonBrief Op NoteREPORT#:[id number] REPORT STATUS: SignedREPORT INITIALIZATION DATE:09/23/23 TIME:1855 PATIENT: MARIA DEL CARMEN RUIZ UNIT #: [id number]#: [id number] ROOM/BED:: 85 AGE: 37 SEX: F ATTEND: [...] Needle count: correct at 1914 RPT #: [id number] OF REPORT OPOperative [id number]:56:00L.[id number] for patient [id number]:14:52 [facility]
[2023-11-20 14:16] VITALS: BMI 22.6
[2023-11-20] MEDS: CEFEPIME 2 GM in NA CHLORIDE 0.9% 100 ML IV SCH ×2 (15:00→21:04)
[2023-11-20 15:03] LABS: Absolute Basophils 0.1 K/uL (0-0.5); Absolute Eosinophils 0.1 K/uL (0-0.5); Absolute Lymphocytes (CBC) 3.7 K/uL (0.7-4.9); Absolute Monocytes 0.8 K/uL (0.1-1.3); Absolute Neutrophil 9.4 K/uL (1.8-8.0); Basophils % 0.9 % (0-1.3); Eosinophils % 0.9 % (0-4.4); Hematocrit 40.3 % (36.0-45.0); Hemoglobin 13.8 g/dL (12.0-15.0); MCH 30.4 pg (27.0-35.0); MCHC 34.3 g/dL (32.0-36.0); MCV 88.7 fL (80-100); MPV 8.2 fL (7.6-11.3); Monocytes % 5.9 % (3.3-12.3); Neutrophils % 66.3 % (41.7-73.7); Platelets 484 thou/uL (152-406); RBC Red Blood Cell Count 4.54 M/uL (3.86-4.86); Red Cell Distribution Width 12.8 % (12.1-15.2)
[2023-11-20 15:07] LABS: PT Prothrombin Time 11.2 SECONDS (9.5-12.5); PTT, Activated Partial Thromb 28.5 SECONDS (24.3-36.9); Protime INR 1.02
[2023-11-20 15:20] LABS: Albumin 3.6 g/dL (3.4-5.0); Anion Gap 8.5 mEq/L (5.0-15.0); Bilirubin Total 0.3 mg/dL (0.2-1.0); Globulin 3.6 g/dL (2.3-3.5); Potassium 3.5 mEq/L (3.5-5.1); Protein, Total 7.2 g/dL (6.4-8.2)
[2023-11-20] MEDS: INSULIN REGULAR (HUMAN) 100 UNIT/ML SQ SCH (16:30)
[2023-11-20] MEDS: METRONIDAZOLE 500mg IVPB 500 MG/100 ML BAG IV SCH (18:06)
[2023-11-20] MEDS: MORPHINE 2 MG/ML SYR IV PRN (18:06)
[2023-11-20] MEDS: NA CHLORIDE 0.9% 1,000 ML IV SCH (18:21)
[2023-11-20 18:56] LABS: Specific Gravity > 1.030 (1.005-1.030)
[2023-11-20 18:59] LABS: Specific Gravity > 1.030 (1.005-1.030); Urine Bacteria <20 /HPF (<20); Urine Bilirubin NEGATIVE (Negative); Urine Blood 2+ (Negative); Urine Clarity Extremely Turbid (Clear); Urine Color Yellow (Yellow); Urine Culture Reflex Order REFLEXED; Urine Glucose NEGATIVE (Negative); Urine Ketones NEGATIVE (Negative); Urine Micro Reflex YN NO BILL MICROSCOPIC; Urine Mucus 4+ /HPF (None Seen); Urine Nitrite NEGATIVE (Negative); Urine Protein 1+ (Negative); Urine Urobilinogen 1+ (Normal); Urine WBC >50 /HPF (<5); Urine WBC Clump Rare /HPF (None Seen); Urine pH 5.5 (5.0-7.0)
[2023-11-20] MEDS: ONDANSETRON 4 MG/2 ML VIAL IV PRN (22:26)
--- NOTE | 2023-11-20 22:45 | RAD REPORT ---
[facility] CLINICAL HISTORY: preop. Hypertension COMPARISON: Chest Single View dated 09/24/2023; Abdomen Pelvis W Contrast dated 10/07/2023 TECHNIQUE: Portable AP view of the chest. FINDINGS: The lungs are clear. No pneumothorax or effusion. The cardiomediastinal contours are unre markable. IMPRESSION: No acute cardiopulmonary process.
[2023-11-21 07:23] LABS: Absolute Basophils 0.1 K/uL (0-0.5); Absolute Eosinophils 0.3 K/uL (0-0.5); Absolute Lymphocytes (CBC) 2.9 K/uL (0.7-4.9); Absolute Monocytes 0.9 K/uL (0.1-1.3); Absolute Neutrophil 6.9 K/uL (1.8-8.0); Basophils % 0.7 % (0-1.3); Eosinophils % 2.7 % (0-4.4); Hematocrit 34.5 % (36.0-45.0); Hemoglobin 11.7 g/dL (12.0-15.0); MCH 30.6 pg (27.0-35.0); MCV 89.9 fL (80-100); MPV 8.1 fL (7.6-11.3); Monocytes % 7.7 % (3.3-12.3); Neutrophils % 62.9 % (41.7-73.7); Platelets 400 thou/uL (152-406); RBC Red Blood Cell Count 3.84 M/uL (3.86-4.86); Red Cell Distribution Width 12.9 % (12.1-15.2)
[2023-11-21 07:36] LABS: Albumin 2.9 g/dL (3.4-5.0); Anion Gap 6.3 mEq/L (5.0-15.0); Bilirubin Total 0.5 mg/dL (0.2-1.0); Globulin 2.9 g/dL (2.3-3.5); Potassium 3.3 mEq/L (3.5-5.1); Protein, Total 5.8 g/dL (6.4-8.2)
--- NOTE | 2023-11-21 08:06 | RAD REPORT ---
EXAM DESCRIPTION: CT - Abdomen Pelvis W Contrast - 11/21/2023 6:37 am CLINICAL HISTORY: pelvic abscess COMPARISON: Abdomen Pelvis W Contrast dated 10/07/2023; Abdomen Pelvis W Contrast dated 2; Abdomen Pelvis W Contrast dated 07/08/2017; Chest Abdomen Pelvis W Cont dated 09/24/2023 TECHNIQUE: Thin cut axial CT imaging of the abdomen and pelvis was performed following intravenous a dministration of 60 mL Isovue 300. Multiplanar reformats were generated and reviewed. All CT scans are performed using dose optimization technique as appropriate and may include automated exposure control or mA/KV adjustment according to patient size. FINDINGS: No suspicious findings in the lung bases. The liver, spleen, adrenal glands, and pancreas show no suspicious findings. Gallbladder was surgical ly removed. Symmetric renal function is seen with no hydronephrosis or suspicious renal mass. Contrast excretion within the renal collecting system limits evaluation for calculi, with no appreciable luminal abnorma lity along the opacified segments No dilated bowel loops or bowel wall thickening. No free air, or free fluid. Nonspecific areas of for fat stranding adjacent to the vaginal cuff persists since the prior CT. Multiloculated cystic lesion seen along the right pelvic sidewall, measuring 2.5 x 2.6 cm, increasingly more defined and with mor e internal loculations compared to the prior exam. . Sequelae of ventral hernia mesh repair No recurr ent hernia, mass or bulky lymphadenopathy. The urinary bladder is without significant finding. No suspicious bony findings. IMPRESSION: Increasingly more defined multiloculated 2.6 cm cystic lesion along the right pelvic annamaria ewall. This may represent a right ovarian cystic lesion (in case the right ovary was not surgically r emoved), alternatively it may represent a prior ovarian postsurgical or postinflammatory collection. Mild persistent nonspecific inflammatory changes adjacent to the vaginal cuff.
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
--- NOTE | 2023-11-21 12:13 | CON ---
Date of Consultation: 11/20/2023 Reason For Consultation: Pelvic abscess. History Of Present Illness: The patient is a 38-year-old female who had a partial hysterectomy done on October [address] Rodriguez with increasing pain and fever. She has had multiple adm issions since that time and was known to have a questionable fluid collection in the pelvis that repo rtedly was getting better. However, when the antibiotic was stopped, patient's symptoms increases wi th pain and fever and this has been going on for off and on the entire postoperative period. She had a CAT scan done in [facility] on Saturday, which showed a collection and the patient had finished her antibi otics and started having increasing pain. She was admitted for further workup and evaluation. She i s awake and alert, complaining of pain, nonspecific in nature in the pelvic region. No sore throat, runny nose, cough, headaches, or dizziness. No chest pain, and the fevers has been subjective. No b lood in her stool. No blood or discharge from the vagina. No dysuria or hematuria. Review of Systems: Otherwise, unremarkable. Past Medical History: Early diabetes, restless legs syndrome. Past Surgical History: Cholecystectomy, hysterectomy recently and hernia repair. Allergies: CODEINE, LEVAQUIN, PENICILLIN, TRAMADOL. Social History: She used to smoke, does not anymore. Drinks alcohol occasionally. Family History: Significant for heart disease, lung disease, stroke, and lung cancer in the mother s leah of the family. Physical Examination: Vital Signs: Currently, her vital signs are stable. She is afebrile. General: She is awake, alert, oriented x3. Head and Neck: Cranial nerves 2 through 12 are grossly within normal limits. No neck masses. No JV D. Throat clear. Neck is supple. Chest: Clear. Heart: S1, S2. Abdomen: Soft, nondistended. Positive bowel sounds. No peritonitis. Mild tenderness in the suprap ubic region. No rebound, rigidity, or guarding noted. Extremities: Adequately perfused, nontender. Neuro: Nonfocal. Laboratory Data: Her white count on admission was 14.2, platelets were 44. Today, the white count i s 11.0. INR is 1.02. Chemistry reviewed. Her procalcitonin is 0.05. CAT scan of the abdomen and p shyla reviewed with Dr. Valera shows a 2.6 x 2.5 cm cystic lesion with internal loculation which is mo re defined and with more internal loculation compared to the September CAT scan. There is mild persist ent nonspecific inflammatory change adjacent to the vaginal cuff. The area described in the CAT scan may represent a right ovarian cystic lesion or a prior postsurgical or inflammatory collection. Assessment: Pelvic collection, possible abscess. Recommendation: I discussed the case with Dr. Rodriguez. As the patient has had a difficult course p ostoperatively with treatment with multiple episodes of IV antibiotics and her symptoms not improving and it appears that the patient has failed medical management; therefore, consideration is being giv en to a diagnostic laparoscopy, possible open with the hope of draining any fluid collection that may be present in the right pelvic wall as this appears to be possibly the etiology of her symptoms. Dr Moses Rodriguez is going to take the patient for diagnostic laparoscopy. I will be on standby, should I b e needed if there is any bowel involvement. COLE/ROYA Voice ID: [id number] Report ID: [id number]
[2023-11-21] MEDS: SCOPOLAMINE HYDROBROMIDE PATCH TD ONE (12:39)
[2023-11-21] MEDS ORDERED: KETOROLAC 30 MG/ML INJ IV ONE (12:43)
[2023-11-21] MEDS ORDERED: ONDANSETRON 4 MG/2 ML VIAL ONE (12:51)
[2023-11-21] MEDS ORDERED: MIDAZOLAM HCL 2 MG/2 ML INJ ONE (12:51)
[2023-11-21] MEDS ORDERED: KETAMINE HCL IN 0.9 % NACL 50 MG/5 ML SYRINGE IV ONE (12:51)
[2023-11-21] MEDS ORDERED: LIDOCAINE 1% MPF 5 ML VIAL ONE (12:51)
[2023-11-21] MEDS ORDERED: FENTANYL CITR 100 MCG/2 ML ONE (12:51)
[2023-11-21] MEDS ORDERED: propofoL 200 MG/20 ML VIAL IV ONE (12:51)
[2023-11-21] MEDS ORDERED: dexAMETHasone 10 MG/ML VIAL ONE (12:51)
[2023-11-21] MEDS ORDERED: ROCURONIUM 50 MG/5 ML VIAL IV ONE (12:51)
[2023-11-21] MEDS: HYDROMORPHONE HCL 0.5 MG/0.5 ML INJ IM ONE (15:51)
--- NOTE | 2023-11-21 16:49 | CON ---
Date of Consultation: 11/21/2023 Consulting Diagnoses: Pelvic pain, 6 weeks postop from hysterectomy, pelvic infection. History Of Present Illness: The patient with significant pelvic pain, which has slightly subsided si nce yesterday, but requiring morphine for relief, which is not even complete. However, no nausea, vo miting, fevers, or chills; shortness of breath or chest pain. Has normal bowel movements. No diarrh ea. No vaginal bleeding. Has discharge that is brownish, red in color. No lower extremity problems . Review of Systems: Mostly negative. N.p.o. at this time and evaluated in the preoperative area. Past Medical History: Significant for diabetes that is resolved since she has lost some weight. She has lost significant weight. History of depression and tobacco use. Past Surgical History: Significant for tubal ligation, cholecystectomy, umbilical hernia repair, lap aroscopic hysterectomy, bilateral salpingectomy and left oophorectomy, endometriosis excision done in September. Allergies: ALLERGIES TO CODEINE, LEVOFLOXACIN, PENICILLIN, AND TRAMADOL. ALSO TO RASPBERRIES. Social History: She is a nonsmoker at this time. Has not smoked in 3 months. Lives at home with he r and 2 sons from a prior marriage, both of them in their late teens, 1 lives with them still . Physical Examination: Vital Signs: She has been afebrile. Her T-max is 98.5, blood pressure 135/80, pulse 83, and saturat ing 100% on room air, 18 respirations. Pain level 7. General: She has no significant distress. Abdomen: Softly distended, tender in the suprapubic area most without rebound. No distention or mas ses. Extremities: Unremarkable. Neck: Supple. Laboratory Data: Her white count had come down to the 11 from 14,000 and left shift has resolved com pletely today. She has been on IV antibiotics since yesterday. She has been on cefepime and Flagyl. She has been getting morphine for pain. CT scan was reviewed. No evidence of any pelvic abscess. The right pelvic sidewall with the ovary w ith multiple follicles seen. There is fat stranding and inflammatory response in the area around the cuff, but the bowel wall has no appearance of any thickening either on the rectal side or in the int raabdominal side. No free fluid or collection seen in the pelvis. In the retroperitoneum, it was di fficult to discern any well-defined fluid collection, mostly inflammatory signs noted. Discussed wit h Dr. Sargent, the radiologist, recommended to have an MRI to evaluate if there is any pelvic collecti on that is not well defined by the CT or well differentiate on the CT. The patient also had consulta tion with Dr. Crystal and the CT results that he reviewed were consistent with what I had. Assessment And Plan: 1.Pelvic pain 6 weeks postoperative from laparoscopic hysterectomy at the level of the vaginal cuff without any well-defined collection. The laparoscopy that was planned for today for drainage did not seem appropriate at this time and the scenario where there is not a collection to be drained. This was discussed with the patient. We will order a pelvic MRI with IV contrast as well as with diffusio n or pelvic MRI with IV contrast and diffusion. She will be re-evaluated after the MRI results are a vailable and I have reviewed the scan. Dr. Crystal will also be notified about this and we will manage the patient at this time with IV antibiotics. I discussed all the plan with the patient. She is ve ry frustrated at this time with the IV situation as the IV access has been difficult. At this time t he MRI is delayed because the IV has been disrupted. 2.IV antibiotics to continue. The plan was to get a PICC line this evening after which she will get an MRI and we will restart her on her regular diet. CBC in the morning and we will re-evaluate her for a laparoscopy if it is indicated, otherwise she will be expected to remain on IV antibiotics for the time in the hospital and then Home Health for IV antibiotics for 2-3 weeks. Infectious Disease c onsult probably will be obtained before she is discharged home. Nutrition status will be maintained. She appears to be controlled and the will follow up in t office. JERRI/ROYA Voice ID: [id number] Report ID: [id number]
--- NOTE | 2023-11-21 18:58 | RAD REPORT ---
EXAM DESCRIPTION: RAD - Chest Single View - 11/21/2023 6:49 pm CLINICAL HISTORY: Picc placement COMPARISON: Chest Single View dated 11/20/2023; Chest Single View dated 09/24/2023 FINDINGS: Portable chest was obtained following placement of a right upper extremity PICC line. The catheter tip projects over the SVC.
[2023-11-21] MEDS: HYDROMORPHONE HCL 0.5 MG/0.5 ML INJ IV PRN (19:23)
[2023-11-21] MEDS: Mupirocin NASAL 2 APPL/1 GM TUBE NAS SCH (20:41)
[2023-11-22 01:46] VITALS: O2SAT 100
[2023-11-22 07:02] LABS: Absolute Basophils 0.1 K/uL (0-0.5); Absolute Eosinophils 0.3 K/uL (0-0.5); Absolute Monocytes 0.7 K/uL (0.1-1.3); Absolute Neutrophil 5.3 K/uL (1.8-8.0); Eosinophils % 3.1 % (0-4.4); Hematocrit 31.6 % (36.0-45.0); Hemoglobin 10.9 g/dL (12.0-15.0); MCH 30.7 pg (27.0-35.0); MCHC 34.5 g/dL (32.0-36.0); MCV 88.9 fL (80-100); MPV 7.8 fL (7.6-11.3); Monocytes % 7.7 % (3.3-12.3); Neutrophils % 56.2 % (41.7-73.7); Platelets 405 thou/uL (152-406); RBC Red Blood Cell Count 3.55 M/uL (3.86-4.86); Red Cell Distribution Width 12.9 % (12.1-15.2)
--- NOTE | 2023-11-22 07:39 | P.CNS ---
Date of Consult: 11/22/23 Reason for Consult: pelvic abscess Chief Complaint: Pelvic abscess; scheduled for I&D in a.m. Allergies raspberry Allergy (Unknown, Verified 11/21/23 12:16) Hives codeine Allergy (Verified 10/08/23 03:07) Itching levofloxacin [From Levaquin] Allergy (Verified 09/24/23 05:27) Anaphylaxis Penicillins Allergy (Verified 09/24/23 05:27) Itching tramadol Allergy (Verified 09/24/23 05:27) Itching Home medications list reviewed: Yes Home Medications: NK [No Home Meds] 11/20/23 - Past Medical/Surgical History Diabetic: No -: prediabetis -: restless legs -: Pelvic infection -: cholecystectomy -: hysterectomy 09/23/2023 -: hernia repair - Family History Father Medical History: Heart disease, Lung disease, Stroke Mother Medical History: Lung disease, Cancer, Other (see notes) Notes: lung CA - Social History Smoking Status: Current every day smoker Alcohol use: Yes CD- Drugs: No Caffeine use: Yes Place of Residence: Home Physical Examination Temp Pulse Resp BP Pulse Ox 98.2 F 94 H 16 114/77 99 11/22/23 04:00 11/22/23 04:00 11/22/23 04:00 11/22/23 04:00 11/22/23 04:00 Laboratory Data 11/22/23 11/21/23 06:41 07:00 WBC 9.40 Hgb 10.9 L Hct 31.6 L Plt Count 405 Sodium 138 Potassium 3.3 L BUN 16 Creatinine 0.66 Glucose 93 Total Bilirubin 0.5 AST 7 L ALT 18 Alkaline Phosphatase 55 D Microbiology Data - Reviewed Imagings Data: - Reviewed Conclusions/Impression: Problem List
--- NOTE | 2023-11-22 09:31 | RAD REPORT ---
EXAM DESCRIPTION: MRI - Pelvis W/Wo Cont - 11/22/2023 7:52 am CLINICAL HISTORY: Pelvic pain COMPARISON: CT abdomen November 21, 2023 TECHNIQUE: Axial, sagittal, and coronal magnetic images of the pelvis were obtained. 20 cc MultiHanc e administered intravenously FINDINGS: Hysterectomy. Right ovary contains multiple follicles. An adnexal mass is not seen. Bladder appears unremarkable. A small amount presacral fluid. Small amount of ascites. Mild stranding within the right at adnexa IMPRESSION: Hysterectomy No abscess Mild inflammatory changes right adnexal
[2023-11-22] MEDS: VANCOMYCIN 1.5 GM in NA CHLORIDE 0.9% 500 ML IVPB ONE (19:15)
[2023-11-22] MEDS: metroNIDAZOLE 500 MG TABLET PO SCH (19:44)
[2023-11-22] MEDS: DIPHENHYDRAMINE 25 MG TAB/CAP ONE (21:04)
[2023-11-22] MEDS: DIPHENHYDRAMINE 25 MG TAB/CAP PO PRN (21:05)
[2023-11-23] MEDS: VANCOMYCIN 1 GM in NA CHLORIDE 0.9% 250 ML IVPB SCH (05:07)
[2023-11-23] MEDS: HYDROCODONE/APAP 10/325 TAB PO PRN (12:36)
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
[2023-11-25] MEDS: POTASSIUM CL SA 10 MEQ TAB PO ONE (09:16)
[2023-11-25] MEDS: CEFTRIAXONE 2,000 MG in NA CHLORIDE 0.9% 100 ML IV SCH (12:30)
--- NOTE | 2023-11-25 14:56 | P.PN ---
Subjective Date of Service: 11/25/23 Chief Complaint: Pelvic abscess; scheduled for I&D in a.m. Subjective: Improving Review of Systems Genitourinary: Other (green vaginal discharge reported) Physical Examination - Vital Signs Temperature: 97.5 F Blood Pressure: 113/77 Pulse: 90 Respirations: 18 Pulse Ox (%): 97 - Physical Exam General: In no apparent distress - Studies Microbiology Data (last 24 hrs): 11/20/23 14:51 Blood - Blood Aerobic Blood Culture - Final 11/20/23 14:51 Blood - Blood Blood Culture Gram Stain - Final Assessment And Plan - Plan * Allergies: levofloxacin, penicillins, tramadol * Pelvic Abscess Urinary Tract Infection Strep Bacteremia - Underwent partial hysterectomy on 09/23/23 - CT scan at [facility] revealed that she had a 2 x 2 x 1-1/2 cm abscess at the vaginal stump as well as a 1 x 1 x 2 cm lesion on the right vaginal stump. She was subsequently transferred to [facility]. She was then discharged home on oral antibiotics. - CT scan at [facility] on 11/20 reporting "Increasingly more defined multiloculated 2.6 cm cystic lesion along the right pelvic sidewall. This may represent a right ovarian cystic lesion (in case the right ovary was not surgically removed), alternatively it may represent a prior ovarian postsurgical or postinflammatory collection. Mild persistent nonspecific inflammatory changes adjacent to the vaginal cuff." - MRI pelvis 11/21: "Hysterectomy. No abscess. Mild inflammatory changes right adnexal " - Blood cultures 11/19: streptococcus species in 1 of 4 bottles - Urine culture 11/19: Streptococcus pyogenes - Previously on Vancomycin (11/21-11/24). -> Deescalated to Rocephin 11/24. Leukocytosis resolved Afebrile Recommendations - Urine and blood culture (+) strep species. Switched to Ceftriaxone IV 2g q24h. Continue antibiotic therapy for a total of 14 days - PICC line placed 11/20. - Patient reporting green vaginal discharge; chlamydia/gonorrhea pending. - Continue supportive care - Follow up with associate consulting engineer in 1-2 weeks Plan of care discussed with patient and Hospitalist COBOL ENGINEER. Case discussed with Eliot Lozada
[2023-11-25] MEDS ORDERED: VANCOMYCIN 1 GM in NA CHLORIDE 0.9% 250 ML IVPB SCH (18:00)
[2023-11-25] MEDS: ACETAMINOPHEN 500 MG TAB PO PRN (18:20)
[2023-11-25] MEDS: LACTOBACILLUS/ACIDOPHILUS TAB PO SCH (18:21)
--- NOTE | 2023-11-25 18:28 | P.PN ---
Subjective Date of Service: 11/25/23 Chief Complaint: Pelvic abscess; scheduled for I&D in a.m. 26-year-old female who presents hospital with abdominal pain. She reports history of hysterectomy with postop infection, noted to have 1 positive blood culture, acute cystitis, treated with IV antibiotics, Being followed by Dr. Kimball for infectious disease, surgery postop hysterectomy infection, hospital medicine Physical Exam General: Alert, In no apparent distress, Oriented x3 HEENT: Atraumatic, PERRLA, Mucous membr. moist/pink, EOMI, Sclerae nonicteric Neck: Supple, 2+ carotid pulse no bruit, No LAD, Without JVD or thyroid abnormality Respiratory: Clear to auscultation bilaterally, Normal air movement Cardiovascular: Regular rate/rhythm, Normal S1 S2, No murmurs Gastrointestinal: Normal bowel sounds, Soft and benign, Non-distended, Musculoskeletal: No clubbing, No swelling, No tenderness Integumentary: No rashes Neurological: Normal gait, Normal speech, Normal strength Lymphatics: No axilla or inguinal lymphadenopathy <Bria Swenson - Last Filed: 11/25/23 18:28> Date of Service: 11/26/23 <Matthew Doan - Last Filed: 11/26/23 21:18> Review of Systems Per HPI <Bria Swenson - Last Filed: 11/25/23 18:28> Physical Examination - Vital Signs Temperature: 97.5 F Blood Pressure: 143/90 Pulse: 87 Respirations: 18 Pulse Ox (%): 97 - Studies Microbiology Data (last 24 hrs): 11/20/23 14:51 Blood - Blood Aerobic Blood Culture - Final 11/20/23 14:51 Blood - Blood Blood Culture Gram Stain - Final 11/20/23 14:51 Blood - Blood Anaerobic Blood Culture - Final No growth in 5 days. 11/20/23 14:43 Blood - Blood Aerobic Blood Culture - Final No growth in 5 days. 11/20/23 14:43 Blood - Blood Anaerobic Blood Culture - Final No growth in 5 days. <Bria Swenson - Last Filed: 11/25/23 18:28> - Studies Laboratory Data (last 24 hrs) 11/26/23 11/26/23 03:44 03:44 WBC 8.50 Hgb 11.9 L Hct 34.6 L Plt Count 366 Sodium 138 Potassium 4.0 BUN 9 Creatinine 0.75 Glucose 94 <Matthew Doan - Last Filed: 11/26/23 21:18> Assessment And Plan - Plan Assessment plan Bacteremia Acute cystitis 1 positive blood culture Infectious disease consulted Pelvic abscess in female Status post hysterectomy Surgery following placed on IV antibiotic IV antibiotic vancomycin Flagyl MRI 11/21 A small amount presacral fluid. Small amount of ascites. Mild stranding within the right at adnexa IMPRESSION: Hysterectomy, No abscess, Mild inflammatory changes right adnexal Hypokalemia Trend electrolytes replace prn History of depression Resume appropriate home meds History of tobacco use Educated on tobacco cessation - Plan Gynecology wanted to repeat CT imaging. Will continue with IV antibiotics Monitor labs Monitor hemodynamics. Patient with no cardiac history and no respiratory issues. Patient low risk for any cardiopulmonary complications in the pre operative pd. Discharge Plan: Home Plan to discharge in: Greater than 2 days Discharge Plan: Home - Code Status/Comfort Care Code Status: Full Code Critical Care: No Time Spent Managing PTS Care (In Minutes): 35 <Bria Swenson - Last Filed: 11/25/23 18:28> - Plan Pt seen and examined. I agree with the note by the EMERGENCY PLANNER. Will streamline her iv abx before discharge. <Matthew Doan - Last Filed: 11/26/23 21:18>
[2023-11-26 04:12] LABS: RPR Titer ND
[2023-11-26 04:21] LABS: Absolute Basophils 0.1 K/uL (0-0.5); Absolute Eosinophils 0.3 K/uL (0-0.5); Absolute Lymphocytes (CBC) 3.5 K/uL (0.7-4.9); Absolute Monocytes 0.8 K/uL (0.1-1.3); Absolute Neutrophil 3.9 K/uL (1.8-8.0); Basophils % 1.3 % (0-1.3); Eosinophils % 3.4 % (0-4.4); Hematocrit 34.6 % (36.0-45.0); Hemoglobin 11.9 g/dL (12.0-15.0); Lymphocytes % 40.9 % (15.3-44.8); MCH 30.7 pg (27.0-35.0); MCHC 34.4 g/dL (32.0-36.0); MCV 89.2 fL (80-100); Monocytes % 9.2 % (3.3-12.3); Neutrophils % 45.2 % (41.7-73.7); Platelets 366 thou/uL (152-406); RBC Red Blood Cell Count 3.88 M/uL (3.86-4.86); Red Cell Distribution Width 12.8 % (12.1-15.2)
[2023-11-26 06:32] LABS: RPR (Rapid Plasma Reagin) NON-REACT (NON-REACT)
--- NOTE | 2023-11-26 09:51 | P.PN ---
Date of Service: 11/26/23 Chief Complaint: Pelvic abscess; scheduled for I&D in a.m. Subjective: Improving In no apparent distress. No acute events overnight. Denies any new or worsening complaints at this time. Continue with Vancomycin IV and Flagyl PO x 2 weeks. Plan of care discussed with patient and Dr. Ocampo at bedside during rounds. Physical Examination Temp Pulse Resp BP Pulse Ox 97.5 F 80 18 119/78 100 11/26/23 04:00 11/26/23 04:00 11/26/23 09:22 11/26/23 04:00 11/26/23 09:22 General: Alert, In no apparent distress, Oriented x3 HEENT: Atraumatic, normocephalic. Sclerae nonicteric. Respiratory: Clear to auscultation bilaterally. Normal air movement. Unlabored respirations on room air. Cardiovascular: Regular rate/rhythm. No edema. Gastrointestinal: Normal bowel sounds. Soft and benign, Non-distended. Non- tender. Integumentary: No rashes. Skin warm and dry. Right upper arm PICC line. Laboratory Data - Reviewed Microbiology Data - Reviewed Imaging Data - Reviewed Medications List: Reviewed Assessment And Plan * Allergies: levofloxacin, penicillins, tramadol * Pelvic Abscess / Surgical Site Infection Urinary Tract Infection Strep Bacteremia - Underwent partial hysterectomy on 09/23/23 - CT scan at [facility] revealed that she had a 2 x 2 x 1-1/2 cm abscess at the vaginal stump as well as a 1 x 1 x 2 cm lesion on the right vaginal stump. She was subsequently transferred to [facility]. She was then discharged home on oral antibiotics. - [facility] reporting "Increasingly more defined multiloculated 2.6 cm cystic lesion along the right pelvic sidewall. This may represent a right ovarian cystic lesion (in case the right ovary was not surgically removed), alternatively it may represent a prior ovarian postsurgical or postinflammatory collection. Mild persistent nonspecific inflammatory changes adjacent to the vaginal cuff." - MRI pelvis 11/21: "Hysterectomy. No abscess. Mild inflammatory changes right adnexal " - Blood cultures 11/19: streptococcus species in 1 of 4 bottles - Urine culture 11/19: Streptococcus pyogenes - On Vancomycin (started 11/21-) Leukocytosis resolved Afebrile Recommendations - Urine and blood culture (+) strep species. Given surgical site infection, increased risk for MRSA- continue with Vancomycin IV and Flagyl PO for 2 weeks. - PICC line placed 11/20. - BMP, CBC and vanco trough at least twice weekly via home health - Continue supportive care - Follow up with fishing rod assembler /surgeon in 1-2 weeks Case discussed with Eliot Lozada
--- NOTE | 2023-11-26 14:08 | EKG ---
Test Date: 2023-11-25 Test Time: 17:18:53 Personnel Recruiter: LUPIS MEASUREMENT RESULTS: Intervals: Rate: 60 MA: 196 QRSD: 94 QT: 504 QTc: 504 Hunter: P: 71 MA: 196 QRS: 26 T: 57 INTERPRETIVE STATEMENTS: Normal sinus rhythm Voltage criteria for left ventricular hypertrophy Nonspecific ST and T wave abnormality Prolonged QT Abnormal ECG No previous ECG available for comparison Electronically Signed On 11-26-23 14:05:25 CDT by Dwaine Manzo
[2023-11-26 17:19] VITALS: BP 102/70; TEMP 98.4
[2023-11-27 06:33] LABS: C.trachomatis RNA,TMA Not Detected (Not Detected); N.gonorrhoeae RNA,TMA Not Detected (Not Detected)
== END 2023-11-26 18:35 | disposition home health service (06) | DRG 863 ==
LOC: 4TH 13:48
PROVIDERS: ADMIT Hospitalist; ATTEND Hospitalist
PROC: 02HV33Z Insertion of Infusion Device into Superior Vena Cava, Percutaneous Approach (ICD-10-PCS; principal; 2023-11-21 13:30)
DX: T81.49XA Infection following a procedure, other surgical site, initial encounter (principal); R78.81 Bacteremia; N30.00 Acute cystitis without hematuria; N73.9 Female pelvic inflammatory disease, unspecified; F32.A Depression, unspecified; E87.6 Hypokalemia; G25.81 Restless legs syndrome; B95.0 Streptococcus, group A, as the cause of diseases classified elsewhere; Z88.5 Allergy status to narcotic agent; Z88.0 Allergy status to penicillin; Z88.1 Allergy status to other antibiotic agents; Z98.51 Tubal ligation status; Z90.49 Acquired absence of other specified parts of digestive tract; Z87.891 Personal history of nicotine dependence; Z90.711 Acquired absence of uterus with remaining cervical stump; Y83.8 Other surgical procedures as the cause of abnormal reaction of the patient, or of later complication, without mention of misadventure at the time of the procedure
CPT/HCPCS: 36415; 36569; 71045; 72197; 74177; 80048; 80053; 80202; 81001; 81025; 82947; 83036; 84145; 85025; 85610; 85730; 86592; 87040; 87077; 87086; 87088; 87186; 87205; 87490; 87535; 87538; 87590; 93005; A9577; J0692; J0696; J1100; J1170; J2001; J2250; J2270; J2405; J2704; J3010; J7030; J7040; J7050; Q9967

== ENCOUNTER → 2023-12-03 | Emergency (ER) | payer BC ==
[~2023-12-03] MED LIST: ALTEPLASE 2 MG/VIAL IV ONE; HYDROCODONE/APAP 10/325 TAB ONE; NA CHLORIDE 0.9% 250 ML ONE; ONDANSETRON 4 MG/2 ML VIAL ONE; VANCOMYCIN 1 GM in NA CHLORIDE 0.9% 250 ML IVPB SCH; VANCOMYCIN 1 GM/VIAL ONE; WATER FOR INJ,STERILE 10 ML ONE
--- OUTSIDE RECORDS SUMMARY | 2023-12-03 12:01 | XMS REPORT | Continuity of Care Document ---
Author Name Unknown Address [address] [facility] [place] [address] [facility] Address [address] 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 Role Phone PCP, PATIENT DOES NOT HAVE A Primary Care Physic abbi Unavailable GC_GCBZW_Crystala_S Attending Clinician UnavailAshley Henriquez Attending Clinician Unavaila Jennifer Gore Attending Clinician Unavailable JOCELYN TORREZ Attending Clinician Unavailable Jocelyn Torrez MD Attending Clinician [phone] Mack Pack Attending Clinician Unavailable MOY SAVAGE Attending Clinician UnavailMOY Garcia Attending Clinician UnavailGAYLE Su Attending Clinician Unavailable Lopez PAC, Gayle S Attending Clinician [phone] Doctor Unassigned, [place] Attending Clinician U navailable GC_GCBZW_Katiffanya_S Admitting Clinician Ashley Jane Admitting Clinician UnavailJennifer Latham Admitting Clinician Unavailable JOCELYN TORREZ Admitting Clinician Unavailable Mack Pack Admitting Clinician Unavailable Payers Payer Name Policy Type Policy Number Effective Date Expirati on Date Source [place] [id number] 2019 00:00:00 [place] OUT OF [place] [id number] 2008 00:00:00 [facility] [id number] 2022 00:00:00 2023 00:00:00 Problems Condition Name Condition Details Condition Category Status Onset Date Resolution Date Last Treatment Date Treating Clinician Comments Source Candidiasi s of vagina Candidiasi s of Vagina Problem Active 3-20 00:00: 00 [facility] Tachycardi a Tachycardi a Problem Active 3-13 00:00: 00 [facility] Posterior vaginal wall prolapse Posterior Vaginal Wall [...] Ovary Problem Active 2022-09 0-10 00:00: 00 [facility] Acute postoperat carina abdominal pain Acute postoperat carina abdominal pain Disease Active 7-03 00:00: 00 [facility] acute hospital Migraines Migraines Disease Active 2 00:00: 00 [facility] acute hospital Tobacco use disorder Tobacco use disorder Disease Active 10-30 00:00: 00 [facility] acute hospital Allergies, Adverse Reactions, Alerts Allergy Name Allergy Type Status Severity Reaction(s) Onset Date Inactive Date Treating Clinician Comments Source LEVOFLOX ACIN DRUG INGREDI Active N/V 00:00: 00 [facility] acute hospital Levoflox acin Propensi ty to adverse reaction s Active Nausea and/or Vomiting 00:00: 00 [facility] acute hospital Penicill ins DA Active RI [facility] 2- 00:00: [facility] lev[facility] acin DA Active U THROAT SWELLING 2- 00:00: 00 [facility] Penicill ins DA Active SV HIVES 0 1-12 00:00: 00 [facility] codeine DA Active MO VOMITING 0 1-12 00:00: 00 [facility] acetamin ophen DA Active MO VOMITING 0 1- 00:00: 00 [facility] tramadol DA Active MO VOMITING 0 1- 00:00: 00 [facility] levoflox acin DA Active MO VOMITING 0 - 00:00: 00 [facility] Penicill ins Propensi ty to adverse reaction s Active Itching 10-30 00:00: 00 General acute hospital PENICILL INS Drug Class Active ITCHING 10-30 00:00: 00 General acute hospital Penicill ins Propensi ty to adverse reaction s Active Itching 10-30 00:00: 00 General acute hospital No Known Drug Intolera nces DA Active U 6- 00:00: 00 [facility] No Known Contrast Allergie s DA Active U 02-06 00:00: 00 [facility] No Known Drug Allergie s DA Active U 02-06 00:00: 00 [facility] No Known Other Allergie s DA Active U 02-06 00:00: 00 [facility] LICORICE DA Active U 02-06 00:00: 00 [facility] RASPBERR IES DA Active U 02-06 00:00: 00 [facility] Levoflox acin Allergy to substanc e Active Vomiting [facility] PENICILL INS Allergy to substanc e Active [facility] Tramadol Allergy to substanc e Active Nausea [facility] Social History Social Habit Start Date Stop Date Quantity Comments Source Exposure to SARS-CoV-2 (event) Not sure [facility] History of tobacco use Cigarette Smoker [facility] of Social function 2020-06-06 00:00:00 2020-06-06 00:00:00 [facility] Alcohol intake 2020-06-06 00:00:00 2020-06-06 00:00:00 Current drinker of alcohol (finding) [facility] Alcohol Comment 2013-10-30 00:00:00 2013-10-30 00:00:00 occasionally [facility] Cigarettes smoked current (pack per day) - Reported 2013-10-30 00:00:00 2013-10-30 00:00:00 [facility] Cigarette pack-years 2013-10-30 00:00:00 2013-10-30 00:00:00 [facility] Tobacco use and exposure 2013-10-30 00:00:00 2013-10-30 00:00:00 Smokeless tobacco non-user [facility] Sex Assigned At 1985 00:00:00 1985 00:00:00 [facility] Smoking Status Start Date Stop Date Source Former Smoker [facility] Smokes tobacco daily 2013-10-30 00:00:00 [facility] Medications Ordered Medication Name Filled Medication Name Start Date Stop Date Current Medication? Ordering Clinician Indication Dosage Frequency Signature (SIG) Comments Components Source ondansetron (ZOFRAN (PF)) injection 4 mg 11-07 05:15: 00 11-07 05:06 :00 No 4mg 4 mg, Slow IV Push, ONCE, 1 dose, On Adore 11/07/23 at 2315, BILL General acute hospital FENTanyl PF (SUBLIMAZE (PF)) injection 75 mcg 11-07 05:00: 00 11-07 04:57 :00 No 75ug 75 mcg, Slow IV Push, ONCE, 1 dose, On Adore 11/07/23 at 2300, STAT [facility] acute hospital NaCl 0.9% (NS) bolus infusion 1,000 mL 11-07 03:45: 00 11-07 04:45 :00 No 1000mL at 999 mL/hr, 1,000 mL, IV Infusion, ONCE, 1 dose, On Adore 11/07/23 at 2145, STAT General acute hospital morpHINE (4 mg/mL) injection 4 mg 11-07 03:30: 00 11-07 03:27 :00 No 4mg 4 mg, Slow IV Push, ONCE, 1 dose, On Adore 11/07/23 at 2130, STAT General acute hospital clindamycin in 5 % dextrose (CLEOCIN) 900 [...] br>Restric kathrine use approved by: ED PROVIDER General acute hospital gentamicin 150 mg in NaCl 0.9% (NS) 11-07 02:45: 00 11-07 03:49 :00 No 150mg 150 mg, IV Piggyback, ONCE, 1 dose, On Adore 11/07/23 at 2045, STAT
Re ason for Anti-Infec tive: Documented Infection< br>Documen kathrine Infection Site: Pelvic
Duration of Therapy: Other (see Comments) [facility] acute hospital iopamidol (ISOVUE 370-500 mL) injection 100 mL 11-07 02:00: 00 11-07 02:00 :00 No [id number] 100mL 100 mL, Intravenou s, ONCE, 1 dose, On Adore 11/07/23 at 2000, Routine General acute hospital morpHINE (4 mg/mL) injection 4 mg 11-07 01:45: 00 11-07 01:35 :00 No 4mg 4 mg, Slow IV Push, ONCE, 1 dose, On Adore 11/07/23 at 1945, STAT General acute hospital NaCl 0.9% (NS) bolus infusion 1,000 mL 11-07 00:15: 00 11-07 02:16 :00 No 1000mL at 999 mL/hr, 1,000 mL, IV Infusion, ONCE, 1 dose, On Adore 11/07/23 at 1815, STAT General acute hospital FENTanyl PF (SUBLIMAZE (PF)) injection 75 mcg 11-07 00:15: 00 23:52 :00 No 75ug 75 mcg, Slow IV Push, ONCE, 1 dose, On Adore 11/07/23 at 1815, STAT General acute hospital ondansetron (ZOFRAN (PF)) injection 4 mg 11-07 00:15: 00 23:52 :00 No 4mg 4 mg, Slow IV Push, ONCE, 1 dose, On Adore 11/07/23 at 1815, BILL General acute hospital ibuprofen 600 mg tablet 2017-09 00:00: 00 Yes 600mg Take 1 tablet by mouth every 6 (six) hours as needed for Pain (scale 4-6). General acute hospital ibuprofen 600 mg tablet 2017-09 00:00: 00 Yes 600mg Take 1 tablet by mouth every 6 (six) hours as needed for Pain (scale 4-6). [facility] acute hospital ibuprofen 600 mg tablet 2017-09 00:00: 00 Yes 600mg Take 1 tablet by mouth every 6 (six) hours as needed for Pain (scale 4-6). [facility] acute hospital ibuprofen 600 mg tablet 2017-09 00:00: 00 Yes 600mg Take 1 tablet by mouth every 6 (six) hours as needed for Pain (scale 4-6). [facility] acute hospital ibuprofen 600 mg tablet 2017-09 0 00:00: 00 Yes 600mg Take 1 tablet by mouth every 6 (six) hours as needed for Pain (scale 4-6). General acute hospital ibuprofen 600 mg tablet 2017-09 00:00: 00 Yes 600mg Take 1 tablet by mouth every 6 (six) hours as needed for Pain (scale 4-6). General acute hospital estradiol 0.01% (0.1 mg/gram) vaginal cream INSERT 0.5 GRAM VAGINALLY EVERY DAY AT BEDTIME estradiol 0.01% (0.1 mg/gram) vaginal cream INSERT 0.5 GRAM VAGINALLY EVERY DAY AT BEDTIME No estradiol 0.01% (0.1 mg/gram) vaginal cream INSERT 0.5 GRAM VAGINALLY EVERY DAY AT BEDTIME [facility] Flagyl Flagyl No Flagyl [facility] fluconazole 150 mg tablet Take 1 tablet every week by oral route as directed for 45 days. fluconazole 150 mg tablet Take 1 tablet every week by oral route as directed for 45 days. No 1 Q1W fluconazol e 150 mg tablet Take 1 tablet every week by oral route as directed for 45 days. [facility] ibuprofen 800 mg tablet TAKE ONE (1) TABLET(S) BY MOUTH THREE TIMES A DAY NEEDED FOR PAIN. ibuprofen 800 mg tablet TAKE ONE (1) TABLET(S) BY MOUTH THREE TIMES A DAY NEEDED FOR PAIN. No ibuprofen 800 mg tablet TAKE ONE (1) TABLET(S) BY MOUTH THREE TIMES A DAY NEEDED FOR PAIN. [facility] Mounjaro 7.5 mg/0.5 mL subcutaneou s pen injector ADMINISTER 7.5 MG UNDER THE SKIN WEEKLY Mounjaro 7.5 mg/0.5 mL subcutaneou s pen injector ADMINISTER 7.5 MG UNDER THE SKIN WEEKLY No Mounjaro 7.5 mg/0.5 mL subcutaneo us pen injector ADMINISTER 7.5 MG UNDER THE SKIN WEEKLY [facility] mupirocin 2 % topical ointment APPLY TO NARES TWICE A DAY. mupirocin 2 % topical ointment APPLY TO NARES TWICE A DAY. No mupirocin 2 % topical ointment APPLY TO NARES TWICE A DAY. [facility] ondansetron 4 mg disintegrat ing tablet TAKE ONE (1) TABLET(S) BY MOUTH EVERY SIX HOURS NEEDED FOR NAUSEA AND VOMITING. ondansetron 4 mg disintegrat ing tablet TAKE ONE (1) TABLET(S) BY MOUTH EVERY SIX HOURS NEEDED FOR NAUSEA AND VOMITING. No ondansetro n 4 mg disintegra ting tablet TAKE ONE (1) TABLET(S) BY MOUTH EVERY SIX HOURS NEEDED FOR NAUSEA AND VOMITING. [facility] Tylenol 325 mg capsule Take as needed by oral route. Tylenol 325 mg capsule Take as needed by oral route. No Tylenol 325 mg capsule Take as needed by oral route. [facility] vancomycin vancomycin No vancomycin [facility] Zofran Zofran No Zofran [facility] Immunizations Ordered Immunization Name Filled Immunization Name Date Status Comments Source Td 2012-10-10 00:00:00 Completed [facility] Td 2012-10-10 00:00:00 Completed [facility] Td 2012-10-10 00:00:00 Completed [facility] Td 2012-10-10 00:00:00 Completed [facility] Td 2012-10-10 00:00:00 Completed [facility] TD, NOS Unknown Completed [facility] Vital Signs Vital Name Observation Time Observation Value Comments S ource Body Weight 2023-11-29 00:00:00 123.6 [lb_av] [facility] BP Systolic 2023-11-29 00:00:00 130 mm[Hg] [facility] Height 2023-11-29 00:00:00 61 [in_i] [facility] BP Diastolic 2023-11-29 00:00:00 98 mm[Hg] [facility] BMI (Body Mass Index) 2023-11-29 00:00:00 23.4 kg/m2 [facility] Body Weight 2023-11-13 00:00:00 123 [lb_av] [facility] BP Systolic 2023-11-13 00:00:00 118 mm[Hg] [facility] BMI (Body Mass Index) 2023-11-13 00:00:00 23.2 kg/m2 [facility] BP Diastolic 2023-11-13 00:00:00 90 mm[Hg] [facility] Height 2023-11-13 00:00:00 61 [in_i] [facility] Heart rate 2023-11-08 06:15:00 85 /min [facility] Respiratory rate 2023-11-08 06:15:00 12 /min [facility] Oxygen saturation in Arterial blood by Pulse oximetry 2023-11-08 06:15:00 99 /min [facility] Systolic blood pressure 2023-11-08 06:00:00 109 mm[Hg] [facility] Diastolic blood pressure 2023-11-08 06:00:00 89 mm[Hg] [facility] Body temperature 2023-11-08 05:45:00 36.56 Berna [facility] Body height 2023-11-07 23:01:00 154.9 cm [facility] Body weight 2023-11-07 23:01:00 54.885 kg [facility] BMI 2023-11-07 23:01:00 22.86 kg/m2 [facility] BP Systolic 2023-11-07 00:00:00 110 mm[Hg] [facility] BP Diastolic 2023-10-30 00:00:00 91 mm[Hg] [facility] Systolic blood pressure 2020-06-06 20:49:00 120 mm[Hg] [facility] Diastolic blood pressure 2020-06-06 20:49:00 85 mm[Hg] [place] [facility] Heart rate 2020-06-06 20:49:00 86 /min [facility] Procedures Procedure Date / Time Performed Performing Clinician Source CT, abdomen + pelvis, w/wo contrast 2023-11-29 00:00:[address] [facility] [address], abdomen + pelvis, w/wo contrast 2023-11-14 00:00:00 [facility] LACTIC ACID WHOLE BLOOD 2023-11-08 03:08:00 Do iglesia Torrez [facility] CT ABDOMEN PELVIS W CONTRAST 2023-11-08 01:01:00 Jocelyn Torrez [facility] LIPASE 2023-11-07 23:47:00 Jocelyn Torrez [facility] COMP. METABOLIC PANEL ([id number]) 2023-11-07 23:47:00 Jocelyn Torrez [facility] CBC WITH DIFF 2023-11-07 23:47:00 Jocelyn Torrez [facility] URINALYSIS 2023-11-07 23:47:00 Jocelyn Torrez [facility] CONSENT/REFUSAL FOR DIAGNOSIS AND TREATMENT 2023-11-07 22:49:54 Doctor Unassigned, [place] [facility] Hysterectomy 2023-09-23 00:00:00 Guadalupe [facility] Hysteroscopy Biopsy 2023-08-09 00:00:00 [facility] XR HAND <3 VW RIGHT 2020-06-06 20:55:12 Gayle Lopez [facility] ASSIGNMENT OF BENEFITS 2020-06-06 20:30:19 Docto r Unassigned, [place] [facility] DME/SUPPLY JUSTIFICATION 2020-05-29 05:01:00 Doc tor Unassigned, [place] [facility] Hernia Repair 2014-09-09 00:00:00 [facility] Cholecystectomy (Gallbladder) 2006-09-09 00:00:00 [facility] Plan of Care Planned Activity Planned Date Details Comments Source Diagnostic Test Pending 2023-11-29 00:00:00 CBC w/ auto diff [code = CBC w/ auto diff] [facility] Future Appointment 2023-12-17 09:15:00 Ashley noonan [address], [place] [address] [facility] Encounters Start Date/Time End Date/Time Encounter Type Admission Type Attending [facility] Care Facility Care Department Encounter ID Source 2023-11-29 00:00:00 2023-11-29 00:00:00 Ashley Rodriguez MD: [address], [address], [place] [id number] , Ph. GC_GCBZW_Ka diyala_S [facility] - GC_GCBZW_La marielle Ty Ty* [id number] [facility] 2023-11-27 00:00:00 2023-11-27 00:00:00 Outpatient GC_GCBZW_Ka diyala_S [facility] [id number] [facility] 2023-11-20 00:00:00 2023-11-20 00:00:00 Ashley Rodriguez MD: [address], [place] [id number] , Ph. GC_GCBZW_Ka diyala_S [facility] - GC_GCBZW_Kaylynn palomares Ty Ty* [id number] [facility] 2023-11-20 00:00:00 2023-11-20 00:00:00 Ashley Rodriguez MD: [address], [address], [place] [id number] , Ph. [facility] - GC_GCBZW_Kaylynn palomares Ty Ty* [id number] [facility] 2023-11-19 11:00:00 2023-11-19 11:00:00 Outpatient Ashley Blevins [facility] [id number] [address] [place] [address] 2023-11-18 00:00:00 2023-11-18 00:00:00 Outpatient GC_GCBZW_Ka diyala_S PRIV PRIV [id number] [facility] 2023-11-13 00:00:00 2023-11-13 00:00:00 Ashley Rodriguez MD: [address], [place] [address] , Ph. GC_GCBZW_Ka disonyaa_S [facility] - GC_GCBZW_Kaylynn Mesa* [id number] [facility] 2023-11-13 00:00:00 2023-11-13 00:00:00 Ashley Rodriguez MD: [address], [place] [address] , Ph. [facility] - GC_GCBZW_Kaylynn palomares Moshe* [id number] [facility] 2023-11-11 00:00:00 2023-11-11 00:00:00 Outpatient GC_GCBZW_Ka diyala_S [facility] [id number] [facility] 2023-11-08 03:21:00 2023-11-10 10:07:00 Inpatient Jennifer Cruz [facility] [id number] [facility] 2023-11-07 17:03:00 2023-11-08 00:37:00 Emergency X JOCELYN TORREZ [facility] ERT [id number] General acute hospital 2023-11-07 17:03:00 2023-11-08 00:37:00 Emergency Jocelyn Torrez [facility] [id number] General acute hospital 2023-11-07 00:00:00 2023-11-07 00:00:00 HERBERTH Galo: [address], [place] [address] , Ph. [facility] - GC_GCBZW_Kaylynn marielle Moshe* [id number] [facility] 2023-11-07 00:00:00 2023-11-07 00:00:00 HERBERTH Galo: [address], [place] [address] , Ph. [facility] - GC_GCBZW_Kaylynn palomares Moshe* [id number] [facility] 2023-11-04 00:00:00 2023-11-04 00:00:00 Outpatient GC_GCBZW_Ka diyala_S [facility] [id number] [facility] 2023-10-30 00:00:00 2023-10-30 00:00:00 Ashley Rodriguez MD: [address], [place] [address] , Ph. [facility] - GC_GCBZW_Kaylynn marielle Ty Ty* [id number] [facility] 2023-10-22 14:33:00 2023-10-23 10:25:00 Inpatient EM Mack Pack HCAPM MEDI.01 [id number] [facility] 2023-10-22 14:33:00 2023-10-23 10:25:00 Inpatient EM Mack Pack HCAPM MEDI.01 [id number] [facility] 2023-10-21 22:17:00 2023-10-21 22:17:00 Outpatient Mack Pack HCACL LABO [id number] [facility] 2023-10-21 22:17:00 2023-10-21 22:17:00 Outpatient Mack Pack HCACL LABO [id number] [facility] 2023-10-21 00:00:00 2023-10-21 00:00:00 Outpatient GC_GCBZW_Nini diyala_S [facility] [id number] [facility] 2023-10-21 00:00:00 2023-10-21 00:00:00 NEGAR MyrickP: [address], [place] [address] , Ph. [facility] - GC_GCBZW_La marielle Mesa* [id number] [facility] 2023-09-30 00:00:00 2023-09-30 00:00:00 Outpatient GC_GCBZW_Ka diyala_S PRIV PRIV [id number] [facility] 2023-09-30 00:00:00 2023-09-30 00:00:00 Mirta English, CARE MANAGER: [address], [place] [address] , Ph. [facility] - GC_GCBZW_La marielle Mesa* [id number] [facility] 2023-09-23 12:27:00 2023-09-23 12:27:00 Outpatient TORY Ninitiffanyantonia Ashley [facility] [id number] [facility] 2023-09-20 00:00:00 2023-09-20 00:00:00 Outpatient GC_GCBZW_Ka diyala_S PRIV PRIV [id number] [facility] 2023-09-17 00:00:00 2023-09-17 00:00:00 Outpatient GC_GCBZW_Ka diyala_S PRIV PRIV [id number] [facility] 2023-09-13 00:00:00 2023-09-13 00:00:00 Outpatient GC_GCBZW_Ka diyala_S PRIV PRIV [id number] [facility] 2023-08-27 00:00:00 2023-08-27 00:00:00 Outpatient GC_GCBZW_Ka diyala_S PRIV PRIV [id number] [facility] 2023-08-09 00:00:00 2023-08-09 00:00:00 Outpatient GC_GCBZW_Ka diyala_S PRIV PRIV [id number] [facility] 2023-08-09 00:00:00 2023-08-09 00:00:00 Outpatient GC_GCBZW_Ka diyala_S PRIV PRIV [id number] [facility] 2023-06-19 00:00:00 2023-06-19 00:00:00 Outpatient GC_GCBZW_Ka diyala_S PRIV PRIV [id number] [facility] 2023-06-19 00:00:00 2023-06-19 00:00:00 Outpatient GC_GCBZW_Ka diyala_S PRIV PRIV [id number] [facility] 2023-06-19 00:00:00 2023-06-19 00:00:00 Outpatient GC_GCBZW_Ka diyala_S PRIV PRIV [id number] [facility] 2023-06-19 00:00:00 2023-06-19 00:00:00 Outpatient GC_GCBZW_Ka diyala_S PRIV PRIV [id number] [facility] 2023-06-18 00:00:00 2023-06-18 00:00:00 Outpatient GC_GCBZW_Ka diyala_S PRIV PRIV [id number] [facility] 2023-06-04 00:00:00 2023-06-04 00:00:00 Outpatient GC_GCBZW_Ka diyala_S PRIV PRIV [id number] [facility] 2022-08-23 13:30:00 2022-08-23 13:30:00 Outpatient R MOY SAVAGE [facility]ERY[facility] [id number] General acute hospital 2022-08-08 15:30:00 2022-08-08 15:30:00 Outpatient R MOY SAVAGE [facility] [id number] General acute hospital 2020-06-13 16:15:00 2020-06-13 16:15:00 Outpatient GAYLE IBRAHIM [facility] [id number] General acute hospital 2020-06-06 15:55:12 2020-06-06 23:59:00 Hospital Encounter Gayle Lopez [facility] [id number] General acute hospital 2020-06-06 16:00:00 2020-06-06 16:00:00 Outpatient R GAYLE LOPEZ [facility] [id number] General acute hospital 2020-06-06 15:34:00 2020-06-06 15:49:00 Office Visit Gayle Lopez [facility] [place] [id number] General acute hospital 2020-06-06 00:00:00 2020-06-06 00:00:00 Orders Only Doctor Unassigned, [place] [facility] [id number] [id number] General acute hospital 2020-05-29 00:00:00 2020-05-29 00:00:00 Orders Only Doctor Unassigned, [place] [facility] [id number] General acute hospital Results Test Description Test Time Test Comments Results Resul t Comments Source - CT ABD PELVIS W WO CONT 2023-11-19 14:37:00 [facility] 1985 Sex: F Name: MARIA DEL CARMEN RUIZ [facility] : 1985 Age/S: 38 / F [id number] Unit #: [id number] Loc: [place] [address] Phys: Ashley Rodriguez MD Acct: [id number] Dis Date: Status: REG CLI PHONE #: [phone] Exam Date: 11/19/2023 1200 FAX #: Reason: PELVIC AND PERINEAL PAIN EXAMS: CPT: [id number] CT ABD PELVIS W WO CONT [id number] Location Code: S17 EXAMINATION: - CT ABD [...] Name: MARIA DEL CARMEN RUIZ [facility] : 1985 Age/S: 38 / F [id number] Unit #: [id number] Loc: [place] [address] Phys: Ashley Rodriguez MD Acct: [id number] Dis Date: Status: REG CLI PHONE #: [phone] Exam Date: 11/19/2023 1200 FAX #: Reason: PELVIC AND PERINEAL PAIN EXAMS: CPT: [id number] CT ABD PELVIS W WO CONT [id number] (Continued) No evidence of drainable fluid collection. [...] (1437) [email or web address] Orig Print D/T: S: 11/19/2023 (7174) PAGE 2 Signed Report CBC W/AUTO [id number] 12:25:00* Test Item Value Reference Range Interpretation [...] code = PLTMR) NORMAL NORMAL infectious disease [id number] 11:01:00* Test Item Value Reference Range Interpretation [...] code = hortensia krusei) 0 ppm 10.500-32.000 [facility] [id number] 11:01:00* Test Item Value Reference Range Interpretation [...] code = hortensia krusei) 0 ppm 10.500-32.000 [facility] Medicalinfectious disease cqxek8008-56-26 11:01:00* Test Item Value Reference Range Interpretation [...] code = hortensia krusei) 0 ppm 10.500-32.000 [facility] Medicalinfectious disease vbvpc2610-40-22 11:01:00* Test Item Value Reference Range Interpretation [...] code = hortensia krusei) 0 ppm 10.500-32.000 [facility] ABD PELVIS W/NTQA4987-17-21 09:37:00 [facility]: 1985 Sex: F Patient Name: MARIA DEL CARMEN RUIZ Unit No: [id number] EXAMS: CPT CODE: [id number] CT ABD PELVIS W/CONT [address]604 CT ABDOMEN AND PELVIS WITH CONTRAST: INDICATIONS:Pelvic abscess Comparison: Outside CT dated November 07, 2023. TECHNIQUE: Axial CT imaging of the abdomen and pelvis IV contrast. Coronal and sagittal reformats reconstructed. One or more of the following dose reduction techniques were used: Automated exposure control, adjustment of the mA and or Kv according to patient size, and / or utilization of iterative reconstruction technique. FINDINGS: Some dependent lung atelectasis. Below the hemidiaphragms: Status post hysterectomy. Some fluid strandings and mesenteric inflammations at the surgicalsite and at superior vaginal vault. No discrete [...] Prior ventral hernia/umbilical hernia repair. No small orlarge bowel obstruction. A normal caliber appendix. The abdominal aorta is of normal caliber without dissection or aneurysm. No suspicious bony lesion. IMPRESSION: [facility] NAME:MARIA DEL CARMEN RUIZ Radiology Department PHYS: Steffany Alvarenga [address] : 1985 AGE: 38 SEX: F [place], [place] [address] LOC: F.2600 A PHONE #: [phone] EXAM DATE: 11/08/2023 STATUS: ADM IN FAX #: [phone] RAD NO: Page 1 Signed Report 1 Patient Name: MARIA DEL CARMEN RUIZ Unit No: [id number] EXAMS: CPT CODE: [id number] CT ABD PELVIS W/CONT 39776 (Continued) Status post hysterectomy. Some fluid strandings and mesenteric inflammations at the surgical site and at superior vaginal vault. No discrete walled off collection. at 0937 Reported and signed by: Barry Cook MD CC: Steffany Byrne MD; Maura Rodriguez MD; Jennifer Salazar MD Technologist: Wei Ontiveros, RT, CT CTDI: 3.98 DLP: 193.93 Trnscrbd D/ (0937) tSIRENAR.VL4 [facility] NAME: MARIA DEL CARMEN RUIZ Radiology Department PHYS: Steffany Mary [address] : 1985 AGE: 38 SEX: F [place] [address] LOC: F.2600 A PHONE #: [phone] EXAM DATE: 11/08/2023 STATUS: ADM IN FAX #: [phone] RAD NO: Page 2 Signed Report 1 Patient Name: MARIA DEL CARMEN RUIZ Unit No: [id number] EXAMS: CPT CODE: [id number] CT ABD PELVIS W/CONT 55060 (Continued) Orig Print D/T: S: 11/08/2023 (0941) [facility] NAME: MARIA DEL CARMEN RUIZ Radiology Department PHYS: [facility]. -Yadira Byrneali Linda [address] : 1985 AGE: 38 SEX: F [place] [address] LOC: F.2600 A PHONE #: [phone] EXAM DATE: 11/08/2023 STATUS: ADM IN FAX #: [phone] RAD NO: Page 3 Signed Report 1CT ABDOMEN PELVIS W KBVCMDTU8258-25-64 04:23:44EXAM: CT ABDOMEN/PELVIS WITH CONTRAST HISTORY: ?Abdominal [...] TISSUES: No suspicious lytic or sclerotic bony lesions.[facility]ennialLactic Acid Whole Adfzj1088-46-55 03:17:00* Test Item Value Reference Range Interpretation Comme nts LACTIC ACID (test code = 9380688042) 1.22 mmol/L 0.50-2.20 Lab Interpretation (test cod e = 55704-4) Normal [facility] CentennialCB WITH UKWW3284-66-54 00:42:59* Test Item Value Reference Range Interpretation [...] 34.5 g/dL 31.6-35.1 RDW-SD (test code = 46781-9) 41.6 fL 39.0-49.9 RDW-CV (test code = 788-0) 12.8 % 12.0-15.5 PLT (test code = 777-3) 387 166-358 H MPV (test code = 47727-0) 10.1 fL 9.5-12.9 NRBC/100 WBC (test code = 3713440756) 0.0 0.0-10.0 NRBC x10^3 (test code = 8635177904) See_Comment [Automated message] The system which generated this result transmitted reference range: 10*3/?L. The reference range was not used to interpret this result as normal/abnormal. GRAN MAT (NEUT) % (test code = 770-8) 70.4 % IMM GRAN % (test code = 8389852215) 0.50 % LYMPH % (test code = 736-9) 19.8 % MONO % (test code = 5905-5) 8.1 % EOS % (test code = 713-8) 0.7 % BASO % (test code = 706-2) 0.5 % GRAN MAT x10^3(ANC) (test code = 3808881395) 13.44 10*3/uL 1.88-7.09 H IMM GRAN x10^3 (test code = 0364538240) 0.09 10*3/uL 0.00-0.06 H LYMPH x10^3 (test code = 731-0) 3.77 10*3/uL 1.32-3.29 H MONO x10^3 (test code = 742-7) 1.55 10*3/uL 0.33-0.92 H EOS x10^3 (test code = 711-2) 0.13 10*3/uL 0.03-0.39 BASO x10^3 (test code = 704-7) 0.10 10*3/uL 0.01-0.07 H Lab Interpretation (test code = 66761-2) Abnormal [facility] CentennialCOMP. METABOLIC PANEL (29928)2023-11-08 00:26:19* Test Item Value Reference Range Interpretation Comme nts NA (test code = 7374070490) 138 mmol/L 135-145 K (test code = 6033530965) 3.3 mmol/L 3.5-5.0 L CL (test code = 9964764648) 109 mmol/L 98-108 H CO2 TOTAL (test code = 0232952665) 22 mmol/L 23-31 L AGAP (test code = 5254973707) 7 2-16 BUN (test code = 9865133560) 17 mg/dL 7-23 GLUCOSE (test code = 7323880455) 99 mg/dL 70-110 CREATININE (test code = 2160-0) 0.69 mg/dL 0.50-1.04 TOTAL BILI (test code = 9320334342) 0.5 mg/dL 0.1-1.1 CALCIUM (test code = 8725637079) 9.1 mg/dL 8.6-10.6 T PROTEIN (test code = 6209011569) 7.1 g/dL 6.3-8.2 ALBUMIN (test code = 4436491612) 4.1 g/dL 3.5-5.0 ALK PHOS (test code = 2239366853) 76 U/L 34-122 ALTv (test code = 1742-6) 19 U/L 5-35 AST(SGOT) (test code = 2130060474) 18 U/L 13-40 eGFR (test code = 71874-6) 114.1 mL/min/1.73m2 CKD-EPI eGFR (2020). Assuming creatinine has been stable day-to-day for at least three months, the eGFR indicates Category G1 (>= 90 mL/min/1.73 m2) Lab Interpretation (test code = 08719-9) Abnormal [facility]ennialLIPASE2024-03-01 00:25:58* Test Item Value Reference Range Interpretation Comme nts LIPASE (test code = 2293197820) 157 U/L 0-220 Lab Interpretation (test cod e = 36491-8) Normal [facility] CentennialUrinalysis macro (dipstick) panel - Urine 2023-11-07 14:37:00* Test Item Value Reference Range Interpretation Comme nts Leukocytes (test code = Leukocytes) Negative Nitrite (test code = Nitrite) negative Urobilinogen (test code = Urobilinogen) Normal Protein (test code = Protein) Negative pH (test code = pH) 6.0 Blood (test code = Blood) 1+ Specific Parnell (test code = Specific Parnell) 1.015 Ketone (test code = Ketone) Negative Bilirubin (test code = Bilirubin) Negative Glucose (test code = Glucose) Negative Appearance (test code = Appearance) Slightly Cloudy Color (test code = Color) Dark Yellow [facility] MedicalUrinalysis macro (dipstick) panel - Gbhnn6442-66-72 14:37:00* Test Item Value Reference Range Interpretation Comme nts Leukocytes (test code = Leukocytes) Negative Nitrite (test code = Nitrite) negative Urobilinogen (test code = Urobilinogen) Normal Protein (test code = Protein) Negative pH (test code = pH) 6.0 Blood (test code = Blood) 1+ Specific Parnell (test code = Specific Parnell) 1.015 Ketone (test code = Ketone) Negative Bilirubin (test code = Bilirubin) Negative Glucose (test code = Glucose) Negative Appearance (test code = Appearance) Slightly Cloudy Color (test code = Color) Dark Yellow [facility] Medical[facility]inalysis macro (dipstick) panel - Tdjpb6736-36-68 14:37:00* Test Item Value Reference Range Interpretation Comme nts Leukocytes (test code = Leukocytes) Negative Nitrite (test code = Nitrite) negative Urobilinogen (test code = Urobilinogen) Normal Protein (test code = Protein) Negative pH (test code = pH) 6.0 Blood (test code = Blood) 1+ Specific Parnell (test code = Specific Parnell) 1.015 Ketone (test code = Ketone) Negative Bilirubin (test code = Bilirubin) Negative Glucose (test code = Glucose) Negative Appearance (test code = Appearance) Slightly Cloudy Color (test code = Color) Dark Yellow [facility] MedicalUrinalysis macro (dipstick) panel - Xxvij0821-94-12 14:37:00* Test Item Value Reference Range Interpretation Comme nts Leukocytes (test code = Leukocytes) Negative Nitrite (test code = Nitrite) negative Urobilinogen (test code = Urobilinogen) Normal Protein (test code = Protein) Negative pH (test code = pH) 6.0 Blood (test code = Blood) 1+ Specific Parnell (test code = Specific Parnell) 1.015 Ketone (test code = Ketone) Negative Bilirubin (test code = Bilirubin) Negative Glucose (test code = Glucose) Negative Appearance (test code = Appearance) Slightly Cloudy Color (test code = Color) Dark Yellow [facility] MedicalBASIC METABOLIC OTEPL5008-70-86 05:50:00* Test Item Value Reference Range Interpretation [...] CA) 8.3 MG/DL 8.5-10.1 L CBC W/AUTO WFYR4561-89-84 05:03:00* Test Item Value Reference Range Interpretation [...] NRBC#) 0.0 K/mm3 0.0-0.1 N COMPREHENSIVE METABOLIC GDUWV3113-16-74 05:31:00* Test Item Value Reference Range Interpretation [...] code = ALKP) 60 Unit/L 45-117 N WKYQGEILGNU9589-43-73 05:31:00* Test Item Value Reference Range Interpretation Comme [facility] PHOSPHOROUS (test code = PHOS) 2.8 MG/DL 2.5-4.9 N DQSBZBOFL1061-86-63 05:31:00* Test Item Value Reference Range Interpretation Comme [facility] MAGNESIUM (test code = MAG) 2.3 MG/DL 1.8-2.4 N PROTHROMBIN KKYH7644-00-79 05:21:00* Test Item Value Reference Range Interpretation Comme [facility] PT PATIENT (test code = PTP) [...] Infarction (to prevent recurrent infarct). THROMBOPLASTIN TIME WHARGHM7935-13-61 05:21:00* Test Item Value Reference Range Interpretation Comme [facility] THROMBOPLASTIN TIME PARTIAL (test code = PTT) 26.9 SECONDS 26-35 N TTTGOADWJU7906-15-07 05:21:00* Test Item Value Reference Range Interpretation Comme [facility] FIBRINOGEN (test code = FIB) 297 mg/dL 185-453 N CBC W/AUTO HDVW4439-45-69 05:13:00* Test Item Value Reference Range Interpretation Comme [facility] WHITE BLOOD CELL (test code = WBC) [...] = NRBC#) 0.0 K/mm3 0.0-0.1 N LACTIC TOSZ2084-73-82 20:28:00* Test Item Value Reference Range Interpretation Comme nts LACTIC ACID (test code = LACT) 0.9 mmol/L 0.4-2.0 N - CT ABD PELVIS W/SDIU0837-52-27 19:03:00 [facility] 1985 Sex: F Name: MARIA DEL CARMEN RUIZ [facility] : 1985 Age/S: 38 / F [address] Unit #: [id number] Loc: [place] [address] Phys: Joe Torres NP Acct: [id number] Dis Date: Status: REG ER PHONE #: [phone] Exam Date: 10/21/2023 5403 FAX #: Reason: pain EXAMS: CPT: [id number] CT ABD PELVIS W/CONT 41808 Location:[facility] EXAM: CT ABDOMEN/PELVIS WITH CONTRAST DATE: [...] Automated exposure control, adjustment of the mA and/orkV according to patient size, and/or iterative reconstruction. [...] structures are unremarkable. PAGE 1 Signed Report ( CONTINUED) Name: MARIA DEL CARMEN RUIZ [place] : 1985 Age/S: 38 / F [address] Unit #: [id number] Loc: [place] [address] Phys: Joe Torres NP Acct: [id number] Dis Date: Status: REG ER PHONE #: [phone] Exam Date: 10/21/2023 1838 FAX #: Reason: pain EXAMS: CPT: [id number] CTABD PELVIS W/CONT 25999 (Continued) No retroperitoneal, mesenteric or pelvic lymphadenopathy. No fluid collections or free fluid. No free air. The uterus is absent. No adnexal mass. The urinary bladder is decompressed limiting its evaluation.. No acute osseous lesions. Post surgical changes of an anterior abdominal wall repair. IMPRESSION: No acute abdominal or pelvic abnormality. at 1903 Reported and signed by: Kendal Hudson M.D. CC: Joe Torres CARDIOLOGY MANAGER; Ashley Rodriguez MD Technologist:Amadou Varela, RT(R) CTDI: DLP: Trnscb Date/Time: 10/21/2023 (1902) Marie Orig Print D/T: S: 10/21/2023 (1906) PAGE 2 Signed Report- CT ABD PELVIS W/VEHG6481-54-11 19:03:00 [facility] : 1985 Sex: F [facility]: [facility] 1985 Age/S: 38 / F [address] [facility] Unit #: [id number] Loc: [place] [address] Phys: Joe Torres CARDIOLOGY MANAGER Acct: [id number] Dis Date: 10/23/2023 Status: DIS IN PHONE #: [phone] Exam Date: 10/21/20231837 FAX #: Reason: pain EXAMS: CPT: [id number] CT ABDPELVIS W/CONT 39012 Location:7 EXAM: CT ABDOMEN/PELVIS WITH CONTRAST DATE: 10/21/2023 5:08 PM HISTORY: 38-year-old with pain TECHNIQUE: Axial CT images were obtained through the abdomen and pelvis after intravenous contrast. Coronal and sagittal reformatted images were created from the data set.UNLESS OTHERWISE SPECIFIED, INCIDENTAL FINDINGS DO NOT REQUIRE DEDICATED IMAGING FOLLOW-UP. One or more of the following dose reduction techniques were used: Automated exposure control, adjustment ofthe mA and/or kV according to patient size, and/or iterative reconstruction. COMPARISON: None FINDINGS: Lung bases are clear. The liver is unremarkable. The spleen is unremarkable. The pancreas is unremarkable. Both adrenal glands are unremarkable. No intra or extrahepatic biliary duct dilatation.The gallbladder is surgically absent. Both kidneys are normal in size, shape and location without mass or hydronephrosis. The bowel is unremarkable. The vascular structures are unremarkable. PAGE 1 Signed Report (CONTINUED) Name: MARIA DEL CARMEN RUIZ : 1985 Age/S: 38 / F [id number] [place] [address] Unit #: [id number] Loc: [place] [address] Phys: BrianJoe CARDIOLOGY MANAGER Acct: [id number] Dis Date: 10/23/2023 Status: DIS IN PHONE #: [phone] Exam Date: 10/21/20231837 FAX #: Reason: painEXAMS: CPT: [id number] CT ABD PELVIS W/CONT 64735 (Continued) No retroperitoneal, mesenteric or pelvic lymphadenopathy. No fluid collections or free fluid. No free air. The uterus is absent. No adnexal mass. The urinary bladder is decompressed limiting its evaluation.. No acute osseous lesions. Post surgical changes of an anterior abdominal wall repair. IMPRESSION: No acute abdominal or pelvic abnormality. at 1903 Reported and signed by: Kendal Hudson M.D. CC: Joe Torres CARDIOLOGY MANAGER; Ashley Rodriguez MD Technologist:Amadou Varela, RT(R) CTDI: DLP: Trnscb Date/Time: 10/21/2023 (1902) t.CINTHYAR.MOP Orig Print D/T: S: 10/21/2023 (1906) PAGE 2 Signed ReportUA RFLX MICR CULT IF XQICWFWLM2735-25-81 18:25:00* Test Item Value Reference Range Interpretation [...] srcSOURCE OF URINE: CLEAN CATCH BASIC METABOLIC MDEVD0206-06-32 18:12:00* Test Item Value Reference Range Interpretation [...] CA) 9.1 MG/DL 8.5-10.1 N HEPATIC FUNCTION XWEFW0244-08-83 18:12:00* Test Item Value Reference Range Interpretation [...] ALKP) 79 Unit/L 45-117 N CBC W/AUTO [id number] 17:49:00* Test Item Value Reference Range Interpretation [...] NRBC#) 0.0 K/mm3 0.0-0.1 N infectious disease alkzr5827-77-46 03:20:00[facility] infectious disease zsixi6514-76-25 03:20:00Abnormal Status[facility] MedicalSURGICAL 2023-09-26 16:31:00* Test Item Value Reference Range Interpretation Comme nts SURGICAL (test code = SR) RUN DATE: 09/26/23 [facility] - LAB PAGE 1 RUN TIME: 1631 Specimen Inquiry RUN USER: INTERFACE PATIENT: MARIA DEL CARMEN RUIZ LOC: MiryamSRG U #: [id number] AGE/SX: 37/F ROOM: RE09/23/23[facility] DR: Ashley Rodriguez MD : [birth year] BED: DIS: STATUS: [facility]P [facility] TLOC: SPEC #: [id number] RECD: 09/23/23 STATUS: RAKESH REJamia #: [id number] SANTY: 09/23/23-[address] [facility] [address]: Ashley Rodriguez MD ENTERED: 09/23/23 SP TYPE: SURGICAL OTHR DR: ORDERED: 96539, 47329, ANATOMIC SPEC, SPECIMEN TRACK PROCEDURES: 75341 (09/23/23-2009) 11239 (09/26/23-0) SPECIMEN TRACK (09/23/23-2009) TISSUES: A. UTERINE CURETTINGS - LEFT UTERO [...] CONTINUED ON NEXT PAGE RUN DATE: 09/26/23 [facility] PAGE 2 RUN TIME: 1631 Specimen Inquiry RUN USER: INTERFACE SPEC #: [id number] PATIENT: MARIA DEL CARMEN RUIZ #[id number] (Continued) GROSS DESCRIPTION (Continued) B1 posterior cervixB2 anterior cervixB3-B4 posterior endomyometrium B5-B6 anterior endomyometriumB7 posterior reflection B8-B11 left ovarian cyst B12 left fallopian tube cut surface with entire bisected fimbriated end B13 right fallopian tube cut surface with entire bisected fimbriated end Technical tissue processing and slide preparation performed at [facility], [place] [address] MICROSCOPIC DESCRIPTION A and B. Microscopic examination is performed and the findings are incorporated into thefinal diagnosis. Please see diagnosis for findings. Signed SIGNATURE ON FILE Moisés Matt 09/26/23 1631 END OF REPORT GLUCOSE BEDSIDE GRRXVIY5140-09-58 13:09:00* Test Item Value Reference Range Interpretation Comme nts GLUCOSE BEDSIDE TESTING (anamaria t code = GLUBED) 85 mg/dL 70-110 N BASIC METABOLIC UNJPV2182-53-66 12:19:00* Test Item Value Reference Range Interpretation [...] CA) 9.7 MG/DL 8.5-10.1 N CBC W/AUTO OCJA2016-75-34 12:06:00* Test Item Value Reference Range Interpretation [...] = NRBC#) 0.0 K/mm3 0.0-0.1 N URINALYSIS VSXVQVNI7335-55-57 12:00:00* Test Item Value Reference Range Interpretation [...] NEGATIVE Urine Specimen Type: Clean CatchUR HCG VVZA4179-09-00 12:00:00* Test Item Value Reference Range Interpretation Comme nts UR HCG QUAL (test code = HCGQLU) NEGATIVE NEGATIVE Urine Specimen Type: Clean CatchXR HAND <3 VW BANCQ3250-43-93 21:43:26No sign of fracture or dislocation joint space is well-maintainedB[facility] & [facility] Notes Date/Time Note Provider Source 2023-11-24 12:28:00 [id number]+A Z 5ecp0nk+TNnNcqnxaU8FPP8XbfIHiKnQa186766-1 11-23T12:28:469500-[address] [id number] [place], [place] [address] PATIENT NAME: MARIA DEL CARMEN RUIZ ADMIT DATE: 11/08/23ACCOUNT NO: [id number] ROOM NO: F.2600 AGE: 38 SEX: F ADMITTING PHYSICIAN: Jennifer Salazar MD ATTENDING PHYSICIAN: Jennifer Salazar MD Provider Query QUERY TEXT: Relationship Procedure Condition 360MD Query related questions should be directed to:[facility] Coding Query Hotline Please clarify the etiology of the diagnosis vaginal cellulitis and its relationship, if any, to the procedure [Status post hysterectomy. The classification system provides these guidelines for intraoperative and/or post procedure conditions/diagnoses:-- Not all post procedure conditions are classified as complications.- There must be an unexpected or abnormal occurrence.- There must be a documented cause and effect relationship between the condition and the care.- There must be an indication that it is a complication-- The term ''complication'' as used in ICD-10-CM does not imply that improper or inadequate care is responsible for the problem-- There is no time limit for development of complication-- The term postoperative requires clarity to determine if it is a complication or condition resulting from medical/surgical care that is a residual condition of the procedure.-- When laceration/tear/enterotomy occurs during a procedure, the physician must provide clarity as to whether the tear was an incidental occurrence inherent to the procedure or clinically significant (complication).-- When hemorrhage occurs with procedure, clarify if it is expected or unexpected as well as abnormal amount of blood loss and the organ or tissue structure involved (i.e., subcutaneous, fascia, specific organ, specific artery/vein, etc.). The patient's Clinical Indicators include:vaginal cellulitis (resolved) - Discharge Summary 11/10/2023suspected vaginal cuff cellulitis vs.early pelvic abscesses.Status post hysterectomy.:- CT ABD PELVIS W/CONT 11/08/2023 (2)No infection collections were noted on imaging. - Discharge Summary 4post operative course has been complicated by readmission for pelvic abscesses. - Discharge Summary 11/10/2023lindamycin 900 mg/D5W 50 mL:medication:11/08/2023Options provided:-- Routine, inherent or integral-- Unexpected or abnormal-- Unrelated, Please specify the cause if known.-- Other - I will add my own diagnosis-- Dismiss - Not applicable / Not valid-- Dismiss - Clinically unable to determine / Unknown-- Assign to another provider QUERY RESPONSE: This was an unexpected or abnormal occurrence of the procedure (complication). Query created by: Clary Contreras on 11/13/2023 12:53 AM at 1228 PATIENT NAME: MARIA DEL CARMEN RUIZ noteF.[id number] for patient tujnZANRGBJGJPNLUM4782-97-50P54:28:27 [facility] 2023-11-10 08:22:00 [id number] l fLNHG1TjH7jY9i7nE6yfkcNp2lOXiAzNW2A9595-9 11-09T08:22:00 [facility] ([facility])Discharge SummaryREPORT#:[id number] REPORT STATUS: SignedREPORT INITIALIZATION DATE:11/10/23 TIME: 821 PATIENT: MARIA DEL CARMEN RUIZ UNIT #: [id number]#: [id number] ROOM[facility]BED: [facility]-ADOB: [birth year] AGE: 38 SEX: F ATTEND: Jennifer Salazar [facility] AUTHOR: Douglas Orozco MDREPT SERVICE DT/TIME: 11/10/23821* ALL edits or amendments must be made on the electronic/computer document * PCP PCPDischarge to: home General InformationDate of admission:Observation Start Date: 11/08/23Date of admission: 11/08/23 Discharge date: 11/10/23Discharge diagnosis:post op TLHvaginal cellulitis (resolved) Hospital course:38 year old status post RA-TLH/BS/LSO/extensive lysis of pelvic adhesions (09/23)who was transferred from [facility] for pelvic abscesses. The patient's post operative [...] useof this antibiotic. She will see her PLASTERER HELPER outpatient. Med Rec PCPPCP:PCP: Ashley Rodriguez MD ObjectiveVS/I OLast Documented: Result Date Time Pulse Ox 98 11/10 315 B/P 116/80 11/10 315 B/P Mean 92.1 11/10 315 Temp 97.5 11/10 315 Pulse 79 11/09 031 Resp 18 11/10 315 O2 Delivery Room air 11/08 1548 24 hour I O ending at 0700: 11/09 0700 11/08 1900 Intake Total 1540.00 1750.00 Output Total 50 Balance 1490.00 1750.00 Intake, IV 1000.00 950.00 Intake, Oral 540 800 Number Voids 3 5 Output, Stool 50 PATIENT WEIGHT: Weight (lb): 121Weight (oz): Weight (kg): 54.120832 General appearance: alert, awake, orientedCardiovascular: regular rate rhythmRespiratory: no distressGI: soft, non-tender ResultsResults: no new labs, labs reviewed, vital signs reviewed, vital signs stable, CT results reviewed Discharge Instructions PCPPCP:PCP: Ashley Rodriguez MD Discharge InstructionsAdditional Discharge Routines: PCP Follow-Up at 0831 [facility] #:[id number] OF REPORT DSDischarge pijaujy9635-71-01B11:22:00F.XRUX07650188- 0040AVAvailable for patient kvrhSLGDDGCZMCJKST0399-82-97L70:31:27 [facility] 2023-11-09 10:32:00 [id number] 8 d+xIq66OU22tt/dlLSw4A/LAv3dC9kG+nOc0307-7 02T10:32:00 [facility] ([facility])Gynecology Progress NoteREPORT#:[id number] REPORT STATUS: SignedREPORT INITIALIZATION DATE:11/09/23 TIME: 1031 PATIENT: MARIA DEL CARMEN RUIZ UNIT #: [id number]#: [id number] ROOM[facility]BED: [facility]-ADOB: [birth year] AGE: 38 SEX: F ATTEND: Jennifer Salazar MDADM AUTHOR: Jessica Hickey I MDREPT SERVICE DT/TIME: 11/09/23 1032* ALL edits or amendments must be made on the electronic/computer document * SubjectivePatient reports:Yes: ambulating, pain controlled, pelvic pain (relatively improved), tolerating diet, voiding/urinating. No: complaints, abdominal pain (relatively imp), chills, fever, flatus/bowel movement (no BM x 2 days). Objective GeneralVS/I O:Last Documented: Result Date Time Pulse Ox 98 11/08 1127 B/P 132/94 11/08 1127 B/P Mean 106.7 11/08 1127 O2 Delivery Room air 11/08 1127 Temp 98.1 11/08 1127 Pulse 96 11/08 1127 Resp 17 11/08 1127 Vital SignsDate Temp Pulse Resp B/P B/P Mean Pulse Ox GmY163/01-11/08 97.7-98.1 86-99 16-19 100-133/70-97 80.1-107.8 94-100 Physical ExamHEENT: moist mucosal membranesRespiratory: no distressAbdomen: non-tender, soft, no CVA tenderness, no distention, no guarding, no reboundExtremities: moves all, no calf tenderness, no edemaNeuro/SMALL BUSINESS SALES REPRESENTATIVE: alert, oriented X 3, normal speech ResultsFindings/Data:Laboratory [...] (Auto) (14.5 - 29.7 %) 31.3 H Mayes % (Auto) (3.6 - 10.2 %) 8.5 Eos % (Auto) (0.0 - 3.0 %) 4.2 H Baso % (Auto) (0.1 - 0.9 %) 0.8 Neut # (Auto) (K/mm3) 4.7 Lymph # (Auto) (K/mm3) 2.7 Mayes # (Auto) (K/mm3) 0.7 Eos # (Auto) [...] coverage2. Constipation: Miralax prn at 2220 RPT #:[id number] OF REPORT PRProgress gcye0274-57-72S62:32:00F.ARQF73651202-303 0AVAvailable for patient tuqaXYGMLKNIMGHQHA9215-89-09H63:21:20 [facility] 2023-11-08 09:52:00 [id number]eon x v41aZODwTiNGjqgiukp9bOYm75D88Owrt123194-0 11-07T09:52:[address] [facility] ([facility])Gynecology Progress NoteREPORT#:[id number] REPORT STATUS: SignedREPORT INITIALIZATION DATE:11/08/23 TIME: 951 PATIENT: MARIA DEL CARMEN RUIZ UNIT #: [id number]#: [id number] ROOM/BED: F.2600-ADOB: [birth year] AGE: 38 SEX: F ATTEND: Jennifer Salazar MDADM AUTHOR: Steffany Byrne MDREPT SERVICE DT/TIME: 11/08/23951* ALL edits or amendments must be made [...] 11/07 0218 O2 Delivery Room air 11/07 217 Temp 97.9 11/07 0218 Pulse 84 11/07 0218 Resp 18 11/078 Last Documented: Result Date Time Pulse Ox 98 11/07 0645 B/P 113/84 11/07 0645 B/P Mean 93.7 11/07 0645 O2 Delivery Room air 11/07 744 Temp 97.9 11/07 0745 Pulse 93 11/07 0745 Resp 18 11/07 0745 24 hour I O ending at 0700: 11/07 0700 1900 Intake Total Output Total Balance Patient 121 lb Weight Weight Stated/Reported Measurement Method PATIENT WEIGHT: Weight (lb): 121Weight (oz): Weight (kg): 54.378563 Medications:Active Meds + DC'd Last 24 Hrs Clindamycin HCl/Dextrose (CLEOCIN 900MG IVPB - 50ML) 50 ML Q8H IV Gentamicin Sulfate/Sodium Chloride (GENTAMICIN 120MG/NS 100ML) 200 ML Q24H IV Ibuprofen (IBUPROFEN 800 MG TAB) 800 MG Q8H PO Oxycodone/Acetaminophen (PERCOCET TAB 5/325 MG) 1 TAB Q4H PRN PRN PO Lactated Ringer's (LACTATED RINGERS) 1,000 ML .Z43Q44M IV Physical ExamGeneral appearance: alert, awake, oriented, no acute distress, pleasant, sittingup in bedHEENT: moist mucosal membranesRespiratory: aerating well, symmetric expansionAbdomen: normal bowel sounds, non-tender, soft, no CVA tenderness, no distention, no guarding, no reboundExtremities: moves all, no calf tenderness, no edemaNeuro/SMALL BUSINESS SALES REPRESENTATIVE: alert, oriented X 3, normal speech ResultsFindings/Data:Laboratory Tests Recent Impressions:CAT SCAN - CT ABD PELVIS W/CONT 11/07 0907 Report Impression - Status: SIGNED Entered: 11/08/2023 [...] % (Auto) (14.5 - 29.7 %) 22.2 Mayes % (Auto) (3.6 - 10.2 %) 9.3 Eos % (Auto) (0.0 - 3.0 %) 2.0 Baso % (Auto) (0.1 - 0.9 %) 0.7 Neut # (Auto) (K/mm3) 9.1 Lymph # (Auto) (K/mm3) 3.1 Mayes # (Auto) (K/mm3) 1.3 Eos # (Auto) (K/mm3) 0.28 Baso # (Auto) (K/mm3) 0.1 Results: labs reviewed, vital signs reviewed, reviewed records from [facility] and summarized above ([facility] Diagnosis, Assessment PlanFree Text A P:38 year old status post RA-TLH/BS/LSO/extensive lysis of adhesions with suspected vaginal cuff cellulitis vs. early pelvic abscesses-Repeat CT scan noted above, IR drainage not indicated based on CT scan performed here-Gent/Clinda continue for abx coverage- repeat cbc in am, today improved WBC count from 19,000--continue current mgmtPlan discussed with: patient, nurse at 1602 RPT #:[id number] OF REPORT PRProgress pxwn1927-97-70V12:52:00F.LERV08213003-505 5AVAvailable for patient abqhABTPKJCGZUTWST8851-39-41K61:02:52 [facility] 2023-11-08 06:44:00 [id number]Z1vm 6 JJxtG+yBFbIRZcg5mlYdZrjFCbnOUP8OUrZ5798-7 06:44:00 [facility] ([facility])PLASTERER HELPER Admission H PREPORT#:[id number] REPORT STATUS: SignedREPORT INITIALIZATION DATE:11/08/23 TIME: 643 PATIENT: MARIA DEL CARMEN RUIZ UNIT #: [id number]#: [id number] [address] [birth year] AGE: 38 SEX: F ATTEND: Jennifer Salazar MDADM AUTHOR: Jennifer Salazar MDREPT SERVICE DT/TIME: 11/08/23643* ALL edits or amendments must be made on the electronic/computer document * History of Present IllnessChief complaint:Pelvic pain Free Text HPI NotesFree Text HPI Notes:38 year old stauts post RA-TLH/BS/LSO/extensive lysis of pelvic adhesions (09/23)who was transferred from [facility] for pelvic abscesses. The patient's post operative [...] Admin Clindamycin HCl/ 50 ML Q8H 11/07 0300 AC 11/07 Dextrose IV 11/14 0259 0539 (CLEOCIN 900MG IVPB - 50ML) Gentamicin Sulfate/ 200 ML Q24H 11/07 030 AC Sodium Chloride IV 11/14 0259 (GENTAMICIN 120MG/NS 100ML) Central Nervous System Agents Sig/Anmol Start time Last Medication Dose Route Stop Time Status Admin Ibuprofen 800 MG Q8H 11/07 030 AC 11/07 (IBUPROFEN 800 MG PO 01/06 0259 0346 TAB) Oxycodone/ 1 TAB Q4H PRN PRN 11/07 299 AC 11/07 Acetaminophen PO 01/06 0259 0345 (PERCOCET TAB 5/325 MG) Electrolytic, Caloric, And Lynn Sig/Anmol Start time Last Medication Dose Route Stop Time Status Admin Lactated Ringer's 1,000 ML .H85U91I 11/07 024 AC 11/07 (LACTATED RINGERS) IV 01/06 0244 [...] WEIGHT: Weight (lb): 121Weight (oz): Weight (kg): 54.998075 General appearance: alert, awake, orientedCardiovascular: regular rate rhythmAbdomen/GI: soft, non-tender, no guarding, no rebound Diagnosis, Assessment Plan Free Text DxA P NotesFree Text DxA P Notes:38 year old status post RA-TLH/BS/LSO/extensive lysis of adhesions with suspected pelvic abscesses/cellulitis-Repeat CT scan -Consider IR drainage if indicated-Gent/Clinda started for antibiotic coverage. at 0651 [facility] #:[id number] OF REPORT HPHistory and physical oxchqylmqvk2668-78-91I90:44:00F.FCYK15565 301-0035AVAvailable for patient vyifKTEBKAYHXQKJCR7136-36-63R88:52:00 [facility] 2023-11-08 00:28:31 f6Yu07I98zGl4Aq3FCiXmeFYalHf71OXdszfbnqE 0 Awm19l4doaIcsVqwITtMd2C0191-50-45Q52:28:[address] [facility] 93503-9Nzhhegnhc department QulfZG1914-59-00L65:28:44[facility] NoteTXT1.2.840.435156.1.13.104.2.7.2.7278 79|[id number] for patient fwlh65335-0UfbjKMXUOOITTOCSutlfbywb C-CDA narrative [id number] R Shehadeh RN[address] Howard [id number] NMRDSYMJVJJXOZVQQ9856-68-65M55:28:441.2.8 40.185817.1.72.3.15|1.2.840.231239.1.13.1 04.2.7.2.727879_[id number] Alice Hook RN [facility] 2023-11-07 23:58:34 rFzah5ajWaUhASfyJh9+Ia/iyCYtKqrdQl6GSZPw B f1hBboCogRhCRZMRxEIlA9i1223-87-58O66:58:3 4 Patient transferring to [facility] for diagnosis of postop infectionPatient agrees to transfer/admit plan and verbalized understanding of plan of care, family aware of planPatient awake alert, oriented, resp reg unlabored, skin w/d PIV patent, no s/s infiltration noted,No adverse reaction to medications given while in ED.[facility] signed by Alice Hook RN at 11/08/2023 12:00 AM BYH41043-1Aeqwtigmn department XioaQL0714-19-40A58:00:06[facility] NoteTXT1.2.840.246604.1.13.104.2.7.2.7278 79|[id number] for patient fxvk23562-8MlnjQLZJMWUCAVYRejksmklg C-CDA narrative text[address] StreetWfglWkgmdvclnGuozuxbmqVQGG1948477878TVEKS QTVAJDNEKXINMTANW3111-57-37D01:00:061.2.8 40.956403.1.72.3.15|1.2.840.720156.1.13.1 04.2.7.2.727879_[id number] [facility] 2023-11-07 23:11:10 /M7SrOeyMaa9D6b17NQrQr55l0tS0bKnzWCi6Ouc N GmuAzoaXmZykCH9FKATk77T2109-08-66X52:11:1 0 Report given to BLAYNE Hook 38123-1Gbfoytpqu department XwbmWA3106-13-84D96:11:41[facility] NoteTXT1.2.840.322448.1.13.104.2.7.2.7278 79|[id number] for patient jodm03217-8SmoiAPZBTAMLMCQJyaoxjzxj C-CDA narrative hsds566003515Fbaqcl M Herrera RNUT[address] YaqnTzboikgddKnkknphdwCQUM8329224893WAXOI KYLNZNERKXDKCIAEF5579-02-32F55:11:411.2.8 40.256909.1.72.3.15|1.2.840.785207.1.13.1 04.2.7.2.727879_[id number] Heidi Dickson RN [facility] 2023-11-07 17:01:00 tyjLtW3G/IhdVeFL2/bMR5zAsHx/9HIOTQfMXeJN X 9NrUXPfQiQMBARJyLDpuEHW8163-07-01V59:01:0 0 Pt states she is having abd pain; she had a hyst on 09/23/2023. States she saw of ob today and was told the abd pain was not related to the hyst. [address]888-5Cyqgsdong department Triage iamvQJ7278-78-72V65:02:59[facility] Triage noteTXT1.2.840.478852.1.13.104.2.7.2.7278 79|[id number] for patient yciw29655-1Tejeuanrp department NoteLNNARRATIVEFormatted C-CDA narrative [address] LupaWvbvvssmpDqrpcjcqrJUWX1322316247YCAGT LEQHKZKQUCZXWAFLS8054-74-17Z15:02:591.2.8 40.312992.1.72.3.15|1.2.840.012756.1.13.1 04.2.7.2.727879_2037620471 [facility] 2023-11-07 16:47:00 fgItn8mcjySKY44+06BtpGxgFsbowQdFVxnyPTSl S oi5JvO2B+uClZux8nxEzIIb8989-18-78U28:47:0 0 Images from the original note were not included.EMERGENCY DEPARTMENT [facility] CenterPatient Name: Maria Del Carmen [place] of : 1985 38 year oldMRN: [id number] Room:[facility]/[address] Physician: PATIENT DOES NOT HAVE A PCPPre- HospitalPatient Escorted by: Self [9]Mode of Arrival: Personal means [1]EMS Treatment Prior to ED Arrival:PROPERTY CLAIM REP treatment: NoneED EventsDate/Time Event User Eftaqata32/29/24 1651 Medical Screening Begins JOCELYN TORREZ MD [...] received in last 5 years: UnknownChildhood immunizations: Ju-ez-hlrcJnjk Surgical HistoryPast Surgical History:Procedure Laterality DateCHOLECYSTECTOMY 06/2007UMBILICAL HERNIORRHAPHY N/A 03/11/2017Surgeon: José Miguel Rene MD; [facility]ergiesAllergiesAllergen ReactionsLevaquin [Levofloxacin] Nausea and/or VomitingPcn [Penicillins] ItchingSocial [...] (*) 0.01 - 0.07 10*3/uLCOMP. METABOLIC PANEL (99047) - AbnormalNA 138 135 - 145 mmol/LK [...] U/LAST(SGOT) 18 13 - 40 U/LeGFR 114.1 mL/min/1.76i2VSLBWDHTMM - AbnormalAPPEARANCE Clear ClearCOLOR Straw (*) YellowPH [...] PELVIS W CONTRASTCBC WITH DIFFCOMP. METABOLIC PANEL (53222)LIPASEURINALYSISBLOOD CULTURE SCREENBLOOD CULTURE SCREENLactic Acid Whole BloodLactic [...] to Abdominal PainDDXDiverticulitisColitisConstipationE D Course as of 11/07/23Oct Transfer initiated [DN]ED Course User Index[DN] ShanArjunJocelyn MDDiagnosis/Impression as of 11/07/239Lower abdominal painPostoperative infection, unspecified type, initial encounterMedical [...] gentamicin. The patient request to go to [facility]. She was accepted by Dr. Titus [...] medicationsNo medications on fileJocelyn Torrez Jr. MDClinical Rebar Bender ProfessorTOHATCHI HEALTH CARE CENTER Emergency DepartmentDragon Dictation Software is used frequently and may produce errors. Promptly contact for obvious discrepancies.Jocelyn Torrez MD11/07/23 2246NeJocelyn bernardo MD11/07/23 2259 53350-5Winhtvgux Emergency department KfrbJL0903-86-66V82:59:11[facility] Emergency department NoteTXT1.2.840.496274.1.13.104.2.7.2.7278 79|[id number] for patient bezo62190-4Fonxdgozq department NoteLNNARRATIVEFormatted C-CDA narrative text[address] AtjnMhadlmppnShlcpxzkiOUOO9232242495PCIQT DPUAKOQOHRJKJRBGN8014-76-92C25:59:111.2.8 40.123745.1.72.3.15|1.2.840.199000.1.13.1 04.2.7.2.727879_2037627479 [facility] 2023-10-23 09:10:00 ZV7055296033OBmpISYWreBUW0Cc3JY8449FYn2M l RdOAbi98jtWkpoDq0ebpzyx9kp5KrZ7kWvi1188-1 14T09:10:00 [facility] ([facility]ospital[facility] Discharge SummaryREPORT#:[id number] REPORT STATUS: SignedREPORT INITIALIZATION DATE:10/23/23 TIME:909 PATIENT: MARIA DEL CARMEN RUIZ UNIT #: [id number]#: [id number] [address] [birth year] AGE: 38 SEX: F ATTEND: Mack Pack MDA AUTHOR: Mack Pakc MDREPT SERVICE DT/TIME: 10/23/23 0910* ALL edits or amendments must be made on the electronic/computer document * General InformationDischarge date: 10/23/23Discharge diagnosis:# Pelvic pain with vaginal discharge-S/p hysterectomy 09/23/2022 complicated by infection x 2-Hospital course:# Pelvic pain with vaginal discharge-S/p hysterectomy 09/23/2022 complicated by infection x 2-LOAN PROCESSOR Dr. Rodriguez has been consulted-Continue IV Zosyn [...] radial, R dorsalis pedis, L dorsalis pedis. Neuro/SMALL BUSINESS SALES REPRESENTATIVE: alert, oriented X 3, CNII-XII intactSkin: dry, intact, normal color, normal temperature, no rashPsychiatry: normal affect, normal mood Discharge Instructions PCPDischarge to: Home/Self CareAdditional Discharge Routines: PCP Follow-Up, Cabinet Finisher Follow-UpDiet: Resume Home Diet/FeedsDischarge management: greater than 30 mins Follow-up AppointmentsPCP follow-up: PCP: Ashley Rodriguez MD PCP follow up timeframe: In 1-2 weeks at 2059 RPT #: [id number] OF REPORT DSDischarge nzardke2821-59-12H01:10:00L.KXUN50936487- 0036AVAvailable for patient kilfMJJTAZSUJGQGFB2487-76-69M50:59:48 [facility] 2023-10-22 14:21:00 RN0840028177aeepowyuQ4JjAwSG8qI0bVzfbZyv A IlFUVy+nBsssvnpNSsA5G2nG405VzvS6JJf4363-8 10-22T14:21:00 [facility] ([facility]Hospitalist Progress NoteREPORT#:[id number] REPORT STATUS: SignedREPORT INITIALIZATION DATE:10/22/23 TIME:1420 PATIENT: MARIA DEL CARMEN RUIZ UNIT #: [id number]#: [id number] [address] [birth year] AGE: 38 SEX: F ATTEND: Mack Pack [facility] AUTHOR: Mary Ellen Chin MDREPT SERVICE DT/TIME: 10/22/23 1421* ALL edits or amendments must be made on the electronic/computer document * SubjectiveChief complaint:Pelvic pain and dischargeHPI:38-year-old female presents to the emergency department with complaints of lowerabdominal pain. She reports she had hysterectomy done on the of last month and then she started feeling this pelvic pain and bloody-mucoid discharge about 2-3 days ago. Patient was seen by her political analyst today and was sent over for further evaluation for concerns of possible pelvic abscess. Patient has been onantibiotics by her political analyst. CT A/P with no abnormal finding. Patient [...] radial, R dorsalis pedis, L dorsalis pedis. Neuro/SMALL BUSINESS SALES REPRESENTATIVE: alert, oriented X 3, CNII-XII intactSkin: dry, [...] - 5.0 G/DL) 3.8 Laboratory Tests 10/22 0443 Coagulation INR (0.8 - 1.2 INR Unit) 1.05 PTT ([place]) (26 - 35 SECONDS) 26.9 PT Patient/Control [...] (Auto) (20.5 - 51.1 %) 33.7 34.0 Mayes % (Auto) (1.7 - 9.3 %) 10.1 H 9.4 H Eos % (Auto) (0.0 - 6.0 %) 5.2 3.1 Baso % (Auto) (0.0 - 2.0 %) 0.8 0.8 Neut # (Auto) (1.8 - 7.6 K/mm3) 4.3 4.8 Lymph # (Auto) (0.6 - 3.2 K/mm3) 2.9 3.1 Mayes # (Auto) (0.3 - 1.1 K/mm3) 0.9 [...] - 7.0 pH UNITS) 6.0 Ur Specific Parnell (1.005 - 1.030 SG) <=1.005 Urine Protein [...] discharge-S/p hysterectomy 09/23/2022 complicated by infection x 2-LOAN PROCESSOR Dr. Rodriguez has been consulted-Continue IV Zosyn antibiotic for empirical coverage-Pain management with as needed morphine-Further management per Dr. Rodriguez DVT prophylaxis: SCDsGI prophylaxis: PEPCIDDisposition Anticipated: Home with family support. Time Spent on Patient Care, Coordination and Counselin min. Code Status: Full code. at 1423 RPT #: [id number] OF REPORT PRProgress tpws2688-06-63N99:21:00L.RUSU28742447-520 1AVAvailable for patient yhjsHIDLLPIYTXVYQC9333-82-62G16:23:38 [facility] 2023-10-21 21:20:00 ON55236138989tI+eQnYrEF7FzIipUAYAg1Ak1vM s fagS/KKXGqK3RAqW8cVXKSGAjrvMTEG/Bnr5778-4 10-21T21:20:00 [facility] ([facility])Hospitalist History PhysicalREPORT#:[id number] REPORT STATUS: SignedREPORT INITIALIZATION DATE:10/21/23 TIME:2119 PATIENT: MARIA DEL CARMEN RUIZ UNIT #: [id number]#: [id number] [address] [birth year] AGE: 38 SEX: F ATTEND: Mack Pack [facility] AUTHOR: Jacy Quick I APRNNPREPT SERVICE DT/TIME: [...] days ago. Patient was seen by her political analyst today and was sent over for further evaluation for concerns of possible pelvic abscess. Patient has been onantibiotics by her political analyst. CT A/P with no abnormal finding. Patient [...] Sodium Chloride (0.9% Sodium Chloride) 1,000 ML .E08H25B IV Tramadol HCl (ULTRAM) 50 MG Q6H [...] radial, R dorsalis pedis, L dorsalis pedis. Neuro/SMALL BUSINESS SALES REPRESENTATIVE: alert, oriented X 3, CNII-XII intactSkin: dry, intact, normal color, normal temperature, no rashPsychiatry: normal affect, normal mood ResultsFindings/Data:Laboratory Tests 10/21 1731 Chemistry Sodium (134 - 147 [...] % (Auto) (20.5 - 51.1 %) 34.0 Mayes % (Auto) (1.7 - 9.3 %) 9.4 H Eos % (Auto) (0.0 - 6.0 %) 3.1 Baso % (Auto) (0.0 - 2.0 %) 0.8 Neut # (Auto) (1.8 - 7.6 K/mm3) 4.8 Lymph # (Auto) (0.6 - 3.2 K/mm3) 3.1 Mayes # (Auto) (0.3 - 1.1 K/mm3) 0.9 [...] - 7.0 pH UNITS) 6.0 Ur Specific Parnell (1.005 - 1.030 SG) <=1.005 Urine Protein [...] Pelvic pain with vaginal discharge- possible pelvic infection-LOAN PROCESSOR Dr. Rodriguez has been consulted-Continue IV Zosyn [...] Staff at 1231 at 1301 RPT #: [id number] OF REPORT HPHistory and physical drpukwcemba3941-75-73I66:20:00L.LNNJ84239 212-0277AVAvailable for patient fjhrCFHAEEMCXIYOKT6578-67-12F48:31:42 [facility] 2023-10-21 17:54:00 [id number]6yZl b n9mvxmz/OtbXoEm0m6MHD44VmzR9fOKzoc/7:54:00 [facility])EMERGENCY PROVIDER REPORTREPORT#:[id number] REPORT STATUS: SignedDATE:10/21/23 TIME:1753 PATIENT: MARIA DEL CARMEN RUIZ UNIT #: [id number]#: [id number] [address] [birth year] AGE: 38 SEX: F PCP PHYS: Ashley Rodriguez AUTHOR: Joe Torres CARDIOLOGY MANAGER * ALL edits or amendments must be made on the electronic/computer document * Joe Torres 10/21/23 175:HPI-Abd Pain F 40 and Over Free Text HPI NotesFree Text HPI Lubjx85-xzdk-bsf female presents to the emergency department with complaints of lowerabdominal pain. Patient was seen by her political analyst today and was sent over for further evaluation for concerns of possible pelvic abscess. Patient has been on antibiotics by her political analyst. Patient also reports vaginal discharge. GeneralConfirmed Patient [...] Documented: Result Date Time Pulse Ox 100 / 1700 B/P 133/93 / 1700 B/P Mean 106 / 1700 O2 Delivery Room air 10/21 1700 Temp 37.2 10/21 1700 Pulse 103 10/21 1700 Resp 17 10/21 1700 Last Documented: Result Date Time Pulse Ox 100 / 1700 B/P 133/93 / 1700 B/P Mean 106 / 1700 O2 Delivery Room air 10/21 1700 Temp 37.2 10/21 1700 Pulse 103 10/21 1700 Resp 17 10/21 1700 Review of Vital Signs Reviewed Free Text [...] Lab Results InterpretationConsiderations Independ review imagingResultsLaboratory Tests 10/21/23 1731:[Embedded Image Not Available]Laboratory Tests: 10/21 1730 Chemistry [...] % (Auto) (20.5 - 51.1 %) 34.0 Mayes % (Auto) (1.7 - 9.3 %) 9.4 H Eos % (Auto) (0.0 - 6.0 %) 3.1 Baso % (Auto) (0.0 - 2.0 %) 0.8 Neut # (Auto) (1.8 - 7.6 K/mm3) 4.8 Lymph # (Auto) (0.6 - 3.2 K/mm3) 3.1 Mayes # (Auto) (0.3 - 1.1 K/mm3) 0.9 [...] - 7.0 pH UNITS) 6.0 Ur Specific Parnell (1.005 - 1.030 SG) <=1.005 Urine Protein (NEG mg/dL) NEGATIVE Urine Glucose (UA) (NEG mg/dL) NEGATIVE Urine Ketones (NEG mg/dL) NEGATIVE Urine Blood (NEG mg/DL) TRACE H Urine Nitrite (NEG SCREEN) NEGATIVE Urine Bilirubin (NEG mg/dL) NEGATIVE Urine Urobilinogen (<2.0 mg/dL) 0.2 Ur Leukocyte Esterase (NEGATIVE Leuk/mcL) NEGATIVE Microbiology: Date/Time Procedure - Status Source Growth 10/21 1741 Blood Culture - COMP BLOOD 10/21 1731 Blood Culture - COMP BLOOD Recent Impressions:CAT SCAN - CT ABD PELVIS W/CONT 10/21 1835 Report Impression - Status: SIGNED Entered: 10/21/2023 190 IMPRESSION: No acute abdominal or pelvic abnormality.Impression By: Marie Hudson M.D. Lab Imaging StatementLaboratory radiographic studies reviewed and considered in the medical decision-making. Re-Evaluation MDM )( Re-Evaluation/Progress #1)( Re-Eval Status ImprovedPlan Post Re-Eval Plan admit ED CoursePatient Course Stable Notes Reviewed Specialist/consult note ConsultationConsultation Referral/Consult Name Ashley Rodriguez MD Cabinet Finisher Called LOAN PROCESSOR Cabinet Finisher Discussed with network relations consultant, Will see patient Requested Call Date [...] DecisionHospitalize Hosp Physician Name Mack Pack MD Hosp Physician Hospitalist Request Time 1928 Request Date [...] over this patient's care. Wei Hyman 10/21/23 8185:Past Medical History - AdultHome MedicationsDiscontinued Reported MedicationsTIRZEPATIDE (MOUNJARO PEN (2mL)) 10 MG SUBQ Q7D Interpretation Diagnostics ECG #1 InterpretationText/Dict NoteSinus rhythm with sinus arrhythmia rate 72, normal axis, QTc 431, no STEMI, as read by me. Re-Evaluation MDM ED CourseMedication(s) OrderedMedication(s) Ordered:Diagnostic Agents Sig/Anmol Start time Last Medication Dose Route Stop Time Status Admin Iopamidol 0 .STK-MED ONE 10/21 1808 DC 10/21 IV 1833 Electrolytic, Caloric, And Lynn Sig/Anmol Start time Last Medication Dose Route Stop Time Status Admin Sodium Chloride 50 ML .STK-MED ONE 10/21 1808 DC 10/21 IV 1833 Patient Discharge Departure Vital Signs/ConditionVital SignsFirst Documented: Result Date Time Pulse Ox 100 10/21 1700 B/P 133/93 / 1700 B/P Mean 106 / 1700 O2 Delivery Room air 10/21 1700 Temp 37.2 / 1700 Pulse 103 02/ 1700 Resp 17 10/21 1700 Last Documented: Result Date Time Pulse Ox 100 10/21 1700 B/P 133/93 / 1700 B/P Mean 106 /12 1700 O2 Delivery Room air 10/21 1700 Temp 37.2 10/21 1700 Pulse 103 / 1700 Resp 17 10/21 1700 All vital [...] involved in care. at 0027 at 0813 [facility] #: [id number] OF REPORTEDEmergency department tnvads6848-06-62X00:54:00L.SEQT25365198-6 246AVAvailable for patient clgpSWUFHDGPAMDOTG4155-26-44J68:28:15 [facility] 2023-09-23 19:46:00 [id number]l95IpCJ+R6xu J ul+4UmzybLwzcrGA9eZy+UTw4RHqC14y6759864-5 9:46:994142-[address] [address] PATIENT NAME: MARIA DEL CARMEN RUIZ ADMIT DATE: 09/23/23ACCOUNT NO: [id number] ROOM NO: AGE: 38 REPORT TYPE: OPERATIVE [...] pelvic cavity, cystoscopy. SURGEON: Ashley Rodriguez MD ALUMINIZER: Joe Pettit. ANESTHESIA: General endotracheal. FINDINGS: Anterior [...] grasped with single tooth tenaculum, dilated to 16-Vietnamese and 3.5 cm cup uterine manipulator was [...] was performed with a 30-degree lens, a 17-Vietnamese sheath and normal saline. Excellent jets of urine from both ureteral orifices. No evidence of any trauma to the bladder. Bladder was then partially drained and the patient was taken from anesthesia and taken to PACU in stable condition. She had with around and sister, debriefed about her procedure. Dictated By: Ahsley Rodriguez MD Date Dictated: 09/23/2023 19:46:56Date Transcribed: 09/23/2023 22:13:34DUNIA/JEAN PIERRE/Waldemar #: [id number] ID: [id number] by Ashley Rodriguez MD On 10/21/2023 05:24:23 PM at 0524 PATIENT NAME: MARIA DEL CARMEN RUIZ [id number]:13:00L.[id number] 01AVAvailable for patient nvytGJIJYPGFAGBGCC0286-38-58M85:25:02 [facility] 2023-09-23 18:56:00 [id number]+IGbGXTJoB7lcAwr + PQUxCywPho8Job2rRDytFOl77K/dvm3TREF2443-9 :56:00 [facility] ([facility])Brief Op NoteREPORT#:[id number] REPORT STATUS: SignedREPORT INITIALIZATION DATE:09/23/23 TIME:1855 PATIENT: MARIA DEL CARMEN RUIZ UNIT #: [id number]#: [id number] ROOM/BED:: 85 AGE: 37 SEX: F ATTEND: [...] Needle count: correct at 1914 RPT #: [id number] OF REPORT OPOperative yzswsw7355-00-07Y22:56:00L.[id number] 199AVAvailable for patient edcxDCIPCZRUUWFIPQ0042-47-89D02:14:52 [facility]
--- NOTE | 2023-12-03 14:08 | RAD REPORT ---
EXAM DESCRIPTION: RAD - Chest Single View - 12/03/2023 1:59 pm CLINICAL HISTORY: near syncope Chest pain. COMPARISON: Chest Single View dated 11/21/2023; Chest Single View dated 11/20/2023; Chest Single View dated 09/24/2023 FINDINGS: Portable technique limits examination quality. The lungs are grossly clear. The heart is normal in size. No displaced fractures.Right PICC line has tip in the SVC.
[2023-12-03 15:20] LABS: ALT/SGPT 55 U/L (13-56); AST/SGOT 40 U/L (15-37); Albumin 3.5 g/dL (3.4-5.0); Albumin/Globulin Ratio 1.1 (1.1-1.8); Alkaline Phosphatase 55 U/L (45-117); Anion Gap 7.9 mEq/L (5.0-15.0); BUN Blood Urea Nitrogen 9 mg/dL (7-18); Bicarbonate 23 mEq/L (21-32); Bilirubin Total 0.2 mg/dL (0.2-1.0); Globulin 3.2 g/dL (2.3-3.5); Glomerular Filtration Rate 114 ml/min (=/>90); Glucose Level 91 mg/dL (74-106); Magnesium 2.4 mg/dL (1.6-2.4); Potassium 3.9 mEq/L (3.5-5.1); Protein, Total 6.7 g/dL (6.4-8.2); Sodium Level 138 mEq/L (136-145)
[2023-12-03 15:33] LABS: Bilirubin Direct < 0.1 mg/dL (0-0.2); Bilirubin Indirect, Calculated ND mg/dL (0.2-0.8); Troponin High Sensitivity < 3.0 pg/mL (<58.9)
--- NOTE | 2023-12-03 17:00 | EKG ---
Test Date: 2023-12-03 Test Time: 12:58:28 Food Quality Tester: TL MEASUREMENT RESULTS: Intervals: Rate: 99 ID: [id number] QRSD: 82 QT: 358 QTc: 459 [place]: P: 68 ID: [id number] QRS: 77 T: 74 INTERPRETIVE STATEMENTS: Normal sinus rhythm Normal ECG Compared to ECG 11/25/2023 17:18:53 Left ventricular hypertrophy no longer present ST (T wave) deviation no longer present Prolonged QT interval no longer present Electronically Signed On 12-03-23 16:59:23 CDT by Dwaine Manzo
[2023-12-03 17:11] LABS: Absolute Basophils 0.1 K/uL (0-0.5); Absolute Lymphocytes (CBC) 2.7 K/uL (0.7-4.9); Absolute Monocytes 0.9 K/uL (0.1-1.3); Absolute Neutrophil 3.3 K/uL (1.8-8.0); Eosinophils % 0.4 % (0-4.4); Hematocrit 32.3 % (36.0-45.0); Hemoglobin 11.2 g/dL (12.0-15.0); Lymphocytes % 38.8 % (15.3-44.8); MCHC 34.5 g/dL (32.0-36.0); MCV 89.8 fL (80-100); MPV 8.1 fL (7.6-11.3); Monocytes % 12.4 % (3.3-12.3); Neutrophils % 47.4 % (41.7-73.7); Platelets 320 thou/uL (152-406); Red Cell Distribution Width 13.3 % (12.1-15.2)
--- NOTE | 2023-12-03 17:49 | EDPHYS ---
Physician Documentation [facility] Name: Maria Del Carmen Stokes Age: 38 yrs Sex: Female : 1985 Arrival Date: 12/03/2023 Time: 11:56 Bed 11 Private MD: ED Physician Hung Turk HPI: 12/02 14:35 This 38 yrs old Female presents to ER via Ambulatory with complaints of Pic Line rt Problem, High Blood Pressure. 14:35 Patient presents to the ED with difficulties using her PICC line. She is receiving rt vancomycin through PICC line chronically. States that the home health nurse was unable to pull blood to get a vancomycin trough. Denies pain to the site. Reportedly became dizzy, almost passed out when home health nurse was working on the PICC line. Denies dizziness currently. Denies other acute complaints, symptoms are moderate in severity, no other aggravating or elevating factors.. 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 - Family history:: not pertinent. - Social history:: Smoking status: Patient denies any tobacco usage or history of. ROS: 14:35 Constitutional: Negative for fever, chills, and weight loss, Cardiovascular: Negative rt for chest pain, palpitations, and edema, Respiratory: Negative for shortness of breath, cough, wheezing, and pleuritic chest pain, Abdomen/GI: Negative for abdominal pain, nausea, vomiting, diarrhea, and constipation, Skin: Negative for injury, rash, and discoloration, Psych: Negative for depression, anxiety, suicide ideation, homicidal ideation, and hallucinations, 14:35 Neuro: Positive for near syncope, Negative for loss of consciousness, Exam: 14:35 Constitutional: This is a well developed, well nourished patient who is awake, alert, rt and in no acute distress. Head/Face: Normocephalic, atraumatic. Chest/axilla: Normal chest wall appearance and motion. Nontender with no deformity. No lesions are appreciated. Cardiovascular: Regular rate and rhythm with a normal S1 and S2. No gallops, murmurs, or rubs. Normal PMI, no JVD. No pulse deficits. Respiratory: Lungs have equal breath sounds bilaterally, clear to auscultation and percussion. No rales, rhonchi or wheezes noted. No increased work of breathing, no retractions or nasal flaring. Abdomen/GI: Soft, non-tender, with normal bowel sounds. No distension or tympany. No guarding or rebound. No evidence of tenderness throughout. Skin: Warm, dry with normal turgor. Normal color with no rashes, no lesions, and no evidence of cellulitis. Neuro: Awake and alert, GCS 15, oriented to person, place, time, and situation. Cranial nerves II-XII grossly intact. Motor strength 5/5 in all extremities. Sensory grossly intact. Cerebellar exam normal. Normal gait. 14:35 ECG was reviewed by the Attending Physician. 14:35 Musculoskeletal/extremity: PICC line insertion site on the right upper extremity is clean, dry, intact. Vital Signs: 12:59 BP 109 / 88; Pulse 105; Resp 17; Temp 97.2; Pulse Ox 97% ; Pain 6/10; hb 13:15 BP 119 / 80; Pulse 92; Resp 11; Pulse Ox 100% on R/A; tl4 14:00 BP 120 / 95; Pulse 82; Resp 16; Pulse Ox 100% on R/A; Pain 8/10; tl4 15:00 BP 112 / 77; Pulse 79; Resp 18; Pulse Ox 99% on R/A; tl4 16:00 BP 121 / 96; Pulse 88; Resp 17; Pulse Ox 99% on R/A; tl4 17:00 BP 123 / 94; Pulse 75; Resp 16; Pulse Ox 99% on R/A; tl4 17:54 BP 114 / 86; Pulse 86; Resp 16; Temp 98.1(O); Pulse Ox 100% on R/A; Pain 4/10; tl4 12:59 Pain Scale: Adult hb 14:00 Pain Scale: Adult tl4 17:54 Pain Scale: Adult tl4 MDM: 12:26 Patient medically screened. rt 17:42 Differential diagnosis: PICC line malfunction, vasovagal syncope. Data reviewed: vital rt signs, nurses notes, lab test result(s). I considered the following discharge prescriptions or medication management in the emergency department Medications were administered in the Emergency Department. See MAR. Test considered but Not performed: CT: Low suspicion for pulmonary embolism, CT angiogram not indicated. Counseling: I had a detailed discussion with the patient and/or guardian regarding the historical points, exam findings, and any diagnostic results supporting the discharge/admit diagnosis, lab results, the need for outpatient follow up, to return to the emergency department if symptoms worsen or persist or if there are any questions or concerns that arise at home. Response to treatment: the patient's symptoms have markedly improved after treatment, Cathflo was instilled, becomes unclogged, able to pull back blood and give vancomycin. 12/02 12:32 Order name: Basic Metabolic Panel; Complete Time: 15:50 rt 12/02 12:32 Order name: CBC with Diff; Complete Time: 17:30 rt 12/02 12:32 Order name: LFT's; Complete Time: 15:50 rt 12/02 12:32 Order name: Magnesium; Complete Time: 15:50 rt 12/02 12:32 Order name: Troponin HS; Complete Time: 15:50 rt 12/02 12:32 Order name: Vancomycin,Trough; Complete Time: 15:50 rt 12/02 12:32 Order name: XRAY Chest (1 view); Complete Time: 14:09 rt 12/02 12:32 Order name: EKG; Complete Time: 12:32 rt 12/02 12:32 Order name: Cardiac monitoring; Complete Time: 12:59 rt 12/02 12:32 Order name: EKG - Nurse/Tech; Complete Time: 13:12 rt 12/02 12:32 Order name: Labs collected and sent; Complete Time: 14:46 rt 12/02 12:32 Order name: O2 Per Protocol; Complete Time: 12:59 rt 12/02 12:32 Order name: O2 Sat Monitoring; Complete Time: 12:59 rt EC:35 Rate is 99 beats/min. Rhythm is regular, Normal Sinus Rhythm with No ectopy. QRS [place] rt is Normal. OK interval is normal. QRS interval is normal. QT interval is normal. No Q waves. T waves are Normal. No ST changes noted. Interpreted by me. Administered Medications: 13:45 Drug: Cathflo Activase IV Thrombolytics 2 mg IV Thrombolytics once; into each catheter tl4 lumen, may repeat once Route: IV Thrombolytics; 14:45 Follow up: Response: No adverse reaction; Other tl4 18:04 Follow up: Response: No adverse reaction; Other tl4 15:47 Drug: [place] PO 10 mg-325 mg 1 tabs PO once Route: PO; tl4 17:15 Follow up: Response: No adverse reaction; Pain is decreased tl4 16:25 Drug: Ondansetron IVP 4 mg IVP once; over 2 minutes Route: IVP; Infused Over: 2 mins; tl4 Site: right upper arm; 18:04 Follow up: Response: No adverse reaction; Nausea is decreased tl4 16:28 Drug: vancoMYCIN IVPB 1 grams IVPB once over 2 hrs Route: IVPB; Infused Over: 2 hrs; tl4 Site: right upper arm; 18:03 Follow up: Response: No adverse reaction tl4 Disposition Summary: 12/03/23 17:48 Discharge Ordered Notes: Location: Home rt Problem: new rt Symptoms: have improved rt Condition: Stable rt Diagnosis - PICC line malfunction rt Followup: rt - With: Private Physician - When: 2 - 3 days - Reason: Discharge Instructions: - Discharge Summary Sheet rt - PICC Home Care Guide rt Forms: - Medication Reconciliation Form rt - Thank You Letter rt - Antibiotic Education rt - Prescription Opioid Use rt - Patient Portal Instructions rt - Leadership Thank You Letter rt Signatures: Dispatcher [employer] Elda Hirsch RN RN ll1 Hung Turk MD MD rt Dontrell Otero RN RN tl4 Corrections: (The following items were deleted from the chart) 14:46 12:32 IV Saline Lock ordered. rt tl4
--- NOTE | 2023-12-03 17:49 | ER ---
Nurse's Notes [facility] Name: Maria Del Carmen Stokes Age: 38 yrs Sex: Female : 1985 Arrival Date: 12/03/2023 Time: 11:56 Bed 11 Private MD: Diagnosis: PICC line malfunction Presentation: 12/02 12:19 Chief complaint: Patient states: PICC line RUE wouldn't draw back blood this AM. She ll1 felt dizzy, weak during this PICC line procedure. BP 85/40 at home, sent in for evaluation. Coronavirus screen: Client denies travel out of the [place] in the last 14 days. At this time, the client does not indicate any symptoms associated with coronavirus-19. Ebola Screen: Patient denies travel to an Ebola-affected area in the 21 days before illness onset. Initial Sepsis Screen: Does the patient meet any 2 criteria? No. Patient's initial sepsis screen is negative. Does the patient have a suspected source of infection? No. Patient's initial sepsis screen is negative. Risk Assessment: Do you want to hurt yourself or someone else? Patient reports no desire to harm self or others. Onset of symptoms was December 03, 2023. 12:19 Method Of Arrival: Ambulatory ll1 12:19 Acuity: WILLIS 3 ll1 Triage Assessment: 12:39 General: Appears in no apparent distress. Behavior is calm, cooperative, appropriate hb for age. General: Reports fatigue for near syncope feeling earlier while home nurse was messing with her PICC line PICC line not drawing back blood. Pain: Denies pain. Neuro: Reports dizziness, a syncopal episode weakness. GI: Reports nausea. 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 - Family history:: not pertinent. - Social history:: Smoking status: Patient denies any tobacco usage or history of. Screenin:48 [facility] ED Fall Risk Assessment (Adult) History of falling in the last 3 months, tl4 including since admission No falls in past 3 months (0 pts) Confusion or Disorientation No (0 pts) Intoxicated or Sedated No (0 pts) Impaired Gait No (0 pts) Mobility Assist Device Used No (0 pt) Altered Elimination No (0 pt) Score/Fall Risk Level 0 - 2 = Low Risk Oriented to surroundings, Maintained a safe environment, Educated pt \T\ family on fall prevention, incl call for assistance when getting out of bed, Assessed \T\ reinforced patient's understanding of fall precautions, Hourly rounding (assess needs \T\ fall precautionary measures) done, Used ambulatory aids as needed (educated on \T\ assisted with), Used gait belt as appropriate. Abuse screen: Denies threats or abuse. Denies injuries from another. Nutritional screening: No deficits noted. Tuberculosis screening: No symptoms or risk factors identified. Assessment: 13:00 General: Appears in no apparent distress. Behavior is calm, cooperative. Pain: tl4 Complains of pain in head. Neuro: Level of Consciousness is awake, alert, obeys commands, Oriented to person, place, time, situation, Moves all extremities. Speech is normal, Facial symmetry appears normal. Cardiovascular: Capillary refill < 3 seconds Patient's skin is warm and dry. Respiratory: Airway is patent Respiratory effort is even, unlabored, Respiratory pattern is regular, symmetrical, Breath sounds are clear bilaterally. GI: No deficits noted. No signs and/or symptoms were reported involving the gastrointestinal system. : No deficits noted. No signs and/or symptoms were reported regarding the genitourinary system. EENT: No deficits noted. No signs and/or symptoms were reported regarding the EENT system. Derm: No deficits noted. No signs and/or symptoms reported regarding the dermatologic system. Musculoskeletal: No deficits noted. No signs and/or symptoms reported regarding the musculoskeletal system. 13:45 Reassessment: Unable to aspirate blood from PICC line in right upper forearm. Dr. afshin Turk aware. Cathflo instilled in both the red and purple ports. Will reassess in 30 mnutes. 14:47 Reassessment: Patient and/or family updated on plan of care and expected duration. Pain tl4 level reassessed. Patient is alert, oriented x 3, equal unlabored respirations, skin warm/dry/pink. PICC flushed with 10 mL NS in each port, positive blood flow from each port. Labs collected. 16:11 Reassessment: No changes from previously documented assessment. Patient and/or family tl4 updated on plan of care and expected duration. Pain level reassessed. Patient is alert, oriented x 3, equal unlabored respirations, skin warm/dry/pink. 17:26 Reassessment: No changes from previously documented assessment. Patient and/or family tl4 updated on plan of care and expected duration. Pain level reassessed. Patient is alert, oriented x 3, equal unlabored respirations, skin warm/dry/pink. 17:52 Reassessment: No changes from previously documented assessment. Patient and/or family tl4 updated on plan of care and expected duration. Pain level reassessed. Patient is alert, oriented x 3, equal unlabored respirations, skin warm/dry/pink. Vital Signs: 12:59 BP 109 / 88; Pulse 105; Resp 17; Temp 97.2; Pulse Ox 97% ; Pain 6/10; hb 13:15 BP 119 / 80; Pulse 92; Resp 11; Pulse Ox 100% on R/A; tl4 14:00 BP 120 / 95; Pulse 82; Resp 16; Pulse Ox 100% on R/A; Pain 8/10; tl4 15:00 BP 112 / 77; Pulse 79; Resp 18; Pulse Ox 99% on R/A; tl4 16:00 BP 121 / 96; Pulse 88; Resp 17; Pulse Ox 99% on R/A; tl4 17:00 BP 123 / 94; Pulse 75; Resp 16; Pulse Ox 99% on R/A; tl4 17:54 BP 114 / 86; Pulse 86; Resp 16; Temp 98.1(O); Pulse Ox 100% on R/A; Pain 4/10; tl4 12:59 Pain Scale: Adult hb 14:00 Pain Scale: Adult tl4 17:54 Pain Scale: Adult tl4 ED Course: 11:58 Patient arrived in ED. mg5 12:07 Hung Turk MD is Attending Physician. rt 12:21 Triage completed. ll1 12:21 Arm band placed on Patient placed in an exam room, on a stretcher. ll1 12:59 Logdahl, Dontrell, RN is Primary Nurse. tl4 13:21 Patient has correct armband on for positive identification. Placed in gown. Bed in low tl4 position. Call light in reach. Side rails up X 1. Adult w/ patient. Provided Education on: ED process. Client placed on continuous cardiac and pulse oximetry monitoring. NIBP monitoring applied. cable tower operator on. Door closed. Noise minimized. Lights dimmed. Moved to private room. Warm blanket given. 13:49 No provider procedures requiring assistance completed. tl4 14:00 XRAY Chest (1 view) In Process Unspecified. EDMS 14:45 Vancomycin,Trough Sent. tl4 14:46 Basic Metabolic Panel Sent. tl4 14:47 CBC with Diff Sent. tl4 14:47 LFT's Sent. tl4 14:47 Magnesium Sent. tl4 14:47 Troponin HS Sent. tl4 17:55 Patient did not have IV access during this emergency room visit. tl4 Administered Medications: 13:45 Drug: Cathflo Activase IV Thrombolytics 2 mg IV Thrombolytics once; into each catheter tl4 lumen, may repeat once Route: IV Thrombolytics; 14:45 Follow up: Response: No adverse reaction; Other tl4 18:04 Follow up: Response: No adverse reaction; Other tl4 15:47 Drug: [place] PO 10 mg-325 mg 1 tabs PO once Route: PO; tl4 17:15 Follow up: Response: No adverse reaction; Pain is decreased tl4 16:25 Drug: Ondansetron IVP 4 mg IVP once; over 2 minutes Route: IVP; Infused Over: 2 mins; tl4 Site: right upper arm; 18:04 Follow up: Response: No adverse reaction; Nausea is decreased tl4 16:28 Drug: vancoMYCIN IVPB 1 grams IVPB once over 2 hrs Route: IVPB; Infused Over: 2 hrs; tl4 Site: right upper arm; 18:03 Follow up: Response: No adverse reaction tl4 Medication: 13:48 VIS not applicable for this client. tl4 Outcome: 17:48 Discharge ordered by . rt 17:55 Discharged to home ambulatory, with family, tl4 17:55 Condition: stable 17:55 Discharge instructions given to patient, Instructed on discharge instructions, follow up and referral plans. medication usage, Demonstrated understanding of instructions, follow-up care, medications, 18:03 Patient left the ED. tl4 Signatures: Dispatcher [employer] EDMS Cristina Falcon RN Elda Pérez RN RN ll1 Hung Turk MD MD rt [place], [place] mg5 Dontrell Otero RN RN tl4
[2023-12-03 18:19] VITALS: BP 114/86; TEMP 98.1; O2SAT 100
== END ==
LOC: ER 11:56
DX: T82.898A Other specified complication of vascular prosthetic devices, implants and grafts, initial encounter (principal)
CPT/HCPCS: 93005; 85025; 80048; 36415; 83735; 80076; 80202; 84484; 71045; J2997; J2405; J7050

== ENCOUNTER 2023-12-11 16:01 | Observation (INO) | payer BC ==
--- OUTSIDE RECORDS SUMMARY | 2023-12-11 16:05 | XMS REPORT | Continuity of Care Document ---
Author Name Unknown Address [address] [facility] [address] [place] [address] [facility] thconnect Address [address] [facility] [address] [place] [address] Care Team Providers Care Telephone Clerk Telegraph Office Name Role Phone PCP, PATIENT DOES NOT HAVE A Primary Care Physic abbi Unavailable GC_GCBZW_Crystala_S Attending Clinician UnavailAshley Henriquez Attending Clinician UnavailJennifer Latham Attending Clinician Unavailable JOCELYN TORREZ Attending Clinician Unavailable Jocelyn Torrez MD Attending Clinician Mack Pack Attending Clinician Unavailable MOY SAVAGE Attending Clinician UnavailMOY Garcia Attending Clinician UnavailGAYLE Su Attending Clinician Unavailable Hinojosa PAC, Gayle S Attending Clinician Doctor Unassigned, [place] Attending Clinician U navailable GC_GCBZW_Michael_S Admitting Clinician UnavailAshley Henriquez Admitting Clinician UnavailJennifer Latham Admitting Clinician Unavailable JOCELYN TORREZ Admitting Clinician Unavailable Mack Pack Admitting Clinician Unavailable Payers Payer Name Policy Type Policy Number Effective Date Expirati on Date Source [place] [id number] 2019 00:00:00 [place] [id number] 2008 00:00:00 [facility] [id number] 2022 00:00:00 2023 00:00:00 Problems Condition Name [...] Ovary Problem Active 2022-09 0-10 00:00: 00 [facility] Acute postoperat carina abdominal pain Acute postoperat carina abdominal pain Disease Active 7- 00:00: 00 [facility] Migraines Migraines Disease Active 2- 00:00: 00 [facility] Tobacco use disorder Tobacco use disorder Disease Active 10-30 00:00: 00 [facility] Allergies, Adverse Reactions, Alerts Allergy Name Allergy Type Status Severity Reaction(s) Onset Date Inactive Date Treating Clinician Comments Source LEVOFLOX ACIN DRUG INGREDI Active N/V 00:00: 00 [facility] Levoflox acin Propensi ty to adverse reaction s Active Nausea and/or Vomiting 00:00: 00 [facility] Penicill ins DA Active NE RSAH 2- 00:00: 00 [facility] levoflox acin DA Active U THROAT SWELLING 0 2- 00:00: 00 [facility] Penicill ins DA Active SV HIVES 0 1-12 00:00: 00 [facility] codeine DA Active MO VOMITING 0 1-12 00:00: 00 [facility] acetamin ophen DA Active MO VOMITING 0 1-12 00:00: 00 [facility] tramadol DA Active MO VOMITING 0 1- 00:00: 00 [facility] levoflox acin DA Active MO VOMITING 0 1-12 00:00: 00 [facility] Penicill ins Propensi ty to adverse reaction s Active Itching 10-30 00:00: 00 [facility] PENICILL INS Drug Class Active ITCHING 10-30 00:00: 00 [facility] Penicill ins Propensi ty to adverse reaction s Active Itching 10-30 00:00: 00 [facility] No Known Drug Intolera nces DA Active U 6 00:00: 00 [facility] LICORICE DA Active U 02-06 00:00: 00 [facility] RASPBERR IES DA Active U 02-06 00:00: 00 [facility] No Known Contrast Allergie s DA Active U 02-06 00:00: 00 [facility] No Known Drug Allergie s DA Active U 02-06 00:00: 00 [facility] No Known Other Allergie s DA Active U 02-06 00:00: 00 [facility] Levoflox acin Allergy to substanc e Active Vomiting [facility] PENICILL INS Allergy to substanc e Active [facility] Tramadol Allergy to substanc e Active Nausea [facility] Social History Social Habit Start Date Stop Date Quantity Comments Source Exposure to SARS-CoV-2 (event) Not sure [facility] History of tobacco use Cigarette Smoker [facility] of Social function 2020-06-06 00:00:00 2020-06-06 00:00:00 [facility] Alcohol intake 2020-06-06 00:00:00 2020-06-06 00:00:00 Current drinker of alcohol (finding) [facility] Alcohol Comment 2013-10-30 00:00:00 2013-10-30 00:00:[address] [facility] Cigarettes smoked current (pack per day) - Reported 2013-10-30 00:00:00 2013-10-30 00:00:00 [facility] Cigarette pack-years 2013-10-30 00:00:00 2013-10-30 00:00:00 [facility] Tobacco use and exposure 2013-10-30 00:00:00 2013-10-30 00:00:00 Smokeless tobacco non-user [facility] Sex Assigned At 1985 00:00:00 1985 00:00:00 [facility] Smoking Status Start Date Stop Date Source Former Smoker [facility] Smokes tobacco daily 2013-10-30 00:00:00 [facility] Medications Ordered Medication Name Filled Medication Name Start Date Stop Date Current Medication? Ordering Clinician Indication Dosage Frequency Signature (SIG) Comments Components Source ondansetron (ZOFRAN (PF)) injection 4 mg 11-07 05:15: 00 11-07 05:06 :00 No 4mg 4 mg, Slow IV Push, ONCE, 1 dose, On Adore 11/07/23 at 2315, BILL [facility] FENTanyl PF (SUBLIMAZE (PF)) injection 75 mcg 11-07 05:00: 00 11-07 04:57 :00 No 75ug 75 mcg, Slow IV Push, ONCE, 1 dose, On Adore 11/07/23 at 2300, STAT [facility] NaCl 0.9% (NS) bolus infusion 1,000 mL 11-07 03:45: 00 11-07 04:45 :00 No 1000mL at 999 mL/hr, 1,000 mL, IV Infusion, ONCE, 1 dose, On Adore 11/07/23 at 2145, STAT [facility] morpHINE (4 mg/mL) injection 4 mg 11-07 03:30: 00 11-07 03:27 :00 No 4mg 4 mg, Slow IV Push, ONCE, 1 dose, On Adore 11/07/23 at 2130, STAT [facility] clindamycin in 5 % dextrose (CLEOCIN) [...] br>Restric kathrine use approved by: ED PROVIDER [facility] gentamicin 150 mg in NaCl 0.9% (NS) 11-07 02:45: 00 11-07 03:49 :00 No 150mg 150 mg, IV Piggyback, ONCE, 1 dose, On Adore 11/07/23 at 2045, STAT
Re ason for Anti-Infec tive: Documented Infection< br>Documen kathrine Infection Site: Pelvic
Duration of Therapy: Other (see Comments) [facility] iopamidol (ISOVUE 370-500 mL) injection 100 mL 11-07 02:00: 00 11-07 02:00 :00 No [id number] 100mL 100 mL, Intravenou s, ONCE, 1 dose, On Adore 11/07/23 at 2000, Routine [facility] morpHINE (4 mg/mL) injection 4 mg 11-07 01:45: 00 11-07 01:35 :00 No 4mg 4 mg, Slow IV Push, ONCE, 1 dose, On Adore 11/07/23 at 1945, STAT [facility] NaCl 0.9% (NS) bolus infusion 1,000 mL 11-07 00:15: 00 11-07 02:16 :00 No 1000mL at 999 mL/hr, 1,000 mL, IV Infusion, ONCE, 1 dose, On Adore 11/07/23 at 1815, STAT [facility] FENTanyl PF (SUBLIMAZE (PF)) injection 75 mcg 11-07 00:15: 00 23:52 :00 No 75ug 75 mcg, Slow IV Push, ONCE, 1 dose, On Adore 11/07/23 at 1815, STAT [facility] ondansetron (ZOFRAN (PF)) injection 4 mg 11-07 00:15: 00 23:52 :00 No 4mg 4 mg, Slow IV Push, ONCE, 1 dose, On Adore 11/07/23 at 1815, BILL [facility] ibuprofen 600 mg tablet 2017-09 0-17 00:00: 00 Yes 600mg Take 1 tablet by mouth every 6 (six) hours as needed for Pain (scale 4-6). [facility] estradiol 0.01% (0.1 mg/gram) vaginal cream INSERT 0.5 GRAM VAGINALLY EVERY DAY AT BEDTIME estradiol 0.01% (0.1 mg/gram) vaginal cream INSERT 0.5 GRAM VAGINALLY EVERY DAY AT BEDTIME No estradiol 0.01% (0.1 mg/gram) vaginal cream INSERT 0.5 GRAM VAGINALLY EVERY DAY AT BEDTIME [facility] Flagyl Flagyl No Flagyl [facility] fluconazole 150 mg tablet Take 1 tablet every week by oral route as directed for 45 days. fluconazole 150 mg tablet Take 1 tablet every week by oral route as directed for 45 days. No 1 Q1W fluconazol e 150 mg tablet Take 1 tablet every week by oral route as directed for [address] [facility] ibuprofen 800 mg tablet TAKE ONE (1) TABLET(S) BY MOUTH THREE TIMES A DAY NEEDED FOR PAIN. ibuprofen 800 mg tablet TAKE ONE (1) TABLET(S) BY MOUTH THREE TIMES A DAY NEEDED FOR PAIN. No ibuprofen 800 mg tablet TAKE ONE (1) TABLET(S) BY MOUTH THREE TIMES A DAY NEEDED FOR PAIN. [facility] Mounjaro 7.5 mg/0.5 mL subcutaneou s pen injector ADMINISTER 7.5 MG UNDER THE SKIN WEEKLY Mounjaro 7.5 mg/0.5 mL subcutaneou s pen injector ADMINISTER 7.5 MG UNDER THE SKIN WEEKLY No Mounjaro 7.5 mg/0.5 mL subcutaneo us pen injector ADMINISTER 7.5 MG UNDER THE SKIN WEEKLY [facility] mupirocin 2 % topical ointment APPLY TO NARES TWICE A DAY. mupirocin 2 % topical ointment APPLY TO NARES TWICE A DAY. No mupirocin 2 % topical ointment APPLY TO NARES TWICE A DAY. [facility] ondansetron 4 mg disintegrat ing tablet TAKE ONE (1) TABLET(S) BY MOUTH EVERY SIX HOURS NEEDED FOR NAUSEA AND VOMITING. ondansetron 4 mg disintegrat ing tablet TAKE ONE (1) TABLET(S) BY MOUTH EVERY SIX HOURS NEEDED FOR NAUSEA AND VOMITING. No ondansetro n 4 mg disintegra ting tablet TAKE ONE (1) TABLET(S) BY MOUTH EVERY SIX HOURS NEEDED FOR NAUSEA AND VOMITING. [facility] Tylenol 325 mg capsule Take as needed by oral route. Tylenol 325 mg capsule Take as needed by oral route. No Tylenol 325 mg capsule Take as needed by oral route. [facility] vancomycin vancomycin No vancomycin [facility] Zofran Zofran No Zofran [facility] Immunizations Ordered Immunization Name Filled Immunization Name Date Status Comments Source Td 2012-10-10 00:00:[address] [facility] Td 2012-10-10 00:00:[address] [facility] Td 2012-10-10 00:00:[address] [facility] Td 2012-10-10 00:00:[address] [facility] Td 2012-10-10 00:00:[address] [facility] TD, NOS Unknown Completed [facility] Vital Signs Vital Name Observation Time [...] Medical Heart rate 2023-11-08 06:15:00 85 /min [facility] Respiratory rate 2023-11-08 06:15:00 12 /min [facility] Oxygen saturation in Arterial blood by Pulse oximetry 2023-11-08 06:15:00 99 /min [facility] Systolic blood pressure 2023-11-08 06:00:00 109 mm[Hg] [facility] Diastolic blood pressure 2023-11-08 06:00:00 89 mm[Hg] [facility] Body temperature 2023-11-08 05:45:[address] [facility] Body height 2023-11-07 23:01:00 154.9 cm [facility] Body weight 2023-11-07 23:01:00 54.885 kg [facility] BMI 2023-11-07 23:01:00 22.86 kg/m2 [facility] BP Systolic 2023-11-07 00:00:00 110 mm[Hg] [facility] [...] Systolic blood pressure 2020-06-06 20:49:00 120 mm[Hg] [facility] Diastolic blood pressure 2020-06-06 20:49:00 85 mm[Hg] [facility] Heart rate 2020-06-06 20:49:00 86 /min [facility] Procedures Procedure Date / Time Performed Performing Clinician Source CT, abdomen + pelvis, w/wo contrast 2023-11-29 00:00:00 [facility] CT, abdomen + pelvis, w/wo contrast 2023-11-14 00:00:00 [facility] LACTIC ACID WHOLE BLOOD 2023-11-08 03:08:[address] [facility] CT ABDOMEN PELVIS W CONTRAST 2023-11-08 01:01:[address] [facility] LIPASE 2023-11-07 23:47:00 Jocelyn Torrez [facility] COMP. METABOLIC PANEL ([id number]) 2023-11-07 23:47:[address] [facility] CBC WITH DIFF 2023-11-07 23:47:00 [facility] 2023-11-07 23:47:00 [facility]/REFUSAL FOR DIAGNOSIS AND TREATMENT 2023-11-07 22:49:54 Doctor Unassigned, [place] [facility] Hysterectomy 2023-09-23 00:00:00 [facility] Hysteroscopy Biopsy 2023-08-09 00:00:00 [facility] XR HAND <3 VW RIGHT 2020-06-06 20:55:[address] [facility] ASSIGNMENT OF BENEFITS 2020-06-06 20:30:19 Docto r Unassigned, [place] [facility] DME/SUPPLY JUSTIFICATION 2020-05-29 05:01:00 Doc tor Unassigned, [place] [facility] Hernia Repair 2014-09-09 00:00:00 [facility] Cholecystectomy (Gallbladder) 2006-09-09 00:00:00 [facility] Plan of Care Planned Activity Planned Date Details Comments Source Diagnostic Test Pending 2023-11-29 00:00:00 CBC w/ auto diff [code = CBC w/ auto diff] [facility] Future Appointment 2023-12-17 09:15:00 Ashley noonan, Leela Bundy; [facility] [address] [place] [phone] [facility] Medical Encounters Start Date/Time End Date/Time Encounter Type Admission Type Attending [facility] Care Facility Care Department Encounter ID Source 2023-11-29 00:00:00 2023-11-29 00:00:00 Ashley Rodriguez MD: Leela Bundy, [address] [place] [phone] , Ph. GC_GCBZW_Ka diyala_S [facility] - GC[facility]GCBZW_[facility]* [id number] [facility] 2023-11-27 00:00:00 2023-11-27 00:00:00 Outpatient GC_GCBZW_Ka diyala_S [facility] [id number] [facility] 2023-11-20 00:00:00 2023-11-20 00:00:00 Ashley Rodriguez MD: Leela Berrios Dr S, [address], [place] [phone] , Ph. GC_GCBZW_Ka diyala_S [facility] - GC_GCBZW_Kaylynn palomares Moshe* [id number] [facility] 2023-11-20 00:00:00 2023-11-20 00:00:00 Ashley Rodriguez MD: [address], [address], [place] [phone] , Ph. [facility] - GC_GCBZW_Md marielle Ryde* [id number] [facility] 2023-11-19 11:00:00 2023-11-19 11:00:00 Outpatient Ashley Blevins [facility] [id number] [facility] 2023-11-18 00:00:00 2023-11-18 00:00:00 Outpatient GC_GCBZW_Ka diyala_S [facility] [id number] [facility] 2023-11-13 00:00:00 2023-11-13 00:00:00 Ashley Rodriguez MD: [address], [address], [place] [phone] , Ph. GC_GCBZW_Ka diyala_S [facility] - GC_GCBZW_Kaylynn marielle Moshe* [id number] [facility] 2023-11-13 00:00:00 2023-11-13 00:00:00 Ashley Rodriguez MD: [address], [address], [place] [phone] , Ph. [facility] - GC_GCBZW_Kaylynn marielle Moshe* [id number] [facility] 2023-11-11 00:00:00 2023-11-11 00:00:00 Outpatient GC_GCBZW_Ka diyala_S PRIV PRIV [id number] [facility] 2023-11-08 03:21:00 2023-11-10 10:07:00 Inpatient Jennifer Cruz [facility] [id number] [facility] 2023-11-07 17:03:00 2023-11-08 00:37:00 Emergency X JOCELYN TORREZ [facility] ERT [id number] [facility] 2023-11-07 17:03:00 2023-11-08 00:37:00 Emergency Jocelyn Torrez [facility] [id number] [facility] 2023-11-07 00:00:00 2023-11-07 00:00:00 HERBERTH Galo: [address], [address], [place] [address] , Ph. [facility] - GC_GCBZW_Kaylynn Mesa* [id number] [facility] 2023-11-07 00:00:00 2023-11-07 00:00:00 HERBERTH Galo: [address], [address], [place] [phone] , Ph. [facility] - GC_GCBZW_Kaylynn Mesa* [id number] [facility] 2023-11-04 00:00:00 2023-11-04 00:00:00 Outpatient GC_GCBZW_Nini nash_Gregor [facility] [id number] [facility] 2023-10-30 00:00:00 2023-10-30 00:00:00 Ashley Rodriguez MD: [address], [address], [place] [address] , Ph. [facility] - GC_GCBZW_Kaylynn Mesa* [id number] [facility] 2023-10-22 14:33:00 2023-10-23 10:25:00 Inpatient Mack Saravia [facility] MEDI.01 [id number] [facility] 2023-10-22 14:33:00 2023-10-23 10:25:00 Inpatient EM Mack Pack HCAPM MEDI.01 [id number] [facility] 2023-10-21 22:17:00 2023-10-21 22:17:00 Outpatient Mack Pack HCACL LABO [id number] [facility] 2023-10-21 22:17:00 2023-10-21 22:17:00 Outpatient Mack Pack HCACL LABO [id number] [facility] 2023-10-21 00:00:00 2023-10-21 00:00:00 Outpatient GC_GCBZW_Ka diyala_S PRIV PRIV [id number] [facility] 2023-10-21 00:00:00 2023-10-21 00:00:00 CHELSY Myrick: Leela Bundy, [address], [place] [phone] , Ph. [facility] - GC_GCBZW_[facility]* [id number] [facility] 2023-09-30 00:00:00 2023-09-30 00:00:00 Outpatient GC_GCBZW_Ka diyala_S PRIV PRIV [id number] [facility] 2023-09-30 00:00:00 2023-09-30 00:00:00 CHELSY Myrick: Leela Bundy, [address], [place] [phone] , Ph. [facility] - GC_GCBZW_[facility]* [id number] [facility] 2023-09-23 12:27:00 2023-09-23 12:27:00 Outpatient Ashley Blevins HCAPM DAVID [id number] [facility] 2023-09-20 00:00:00 2023-09-20 00:00:00 Outpatient GC_GCBZW_Ka diyala_S PRIV PRIV [id number] [facility] 2023-09-17 00:00:00 2023-09-17 00:00:00 Outpatient GC_GCBZW_Ka diyala_S PRIV PRIV [id number] [facility] 2023-09-13 00:00:00 2023-09-13 00:00:00 Outpatient GC_GCBZW_Ka diyala_S PRIV PRIV [id number] [facility] 2023-08-27 00:00:00 2023-08-27 00:00:00 Outpatient GC_GCBZW_Ka diyala_S PRIV PRIV [id number] [facility] 2023-08-09 00:00:00 2023-08-09 00:00:00 Outpatient GC_GCBZW_Ka diyala_S PRIV PRIV [id number] [facility] 2023-08-09 00:00:00 2023-08-09 00:00:00 Outpatient GC_GCBZW_Ka diyala_S PRIV PRIV [id number] [facility] 2023-06-19 00:00:00 2023-06-19 00:00:00 Outpatient GC_GCBZW_Ka diyala_S PRIV PRIV [id number] [facility] 2023-06-19 00:00:00 2023-06-19 00:00:00 Outpatient GC_GCBZW_Ka diyala_S PRIV PRIV [id number] [facility] 2023-06-19 00:00:00 2023-06-19 00:00:00 Outpatient GC_GCBZW_Ka diyala_S PRIV PRIV [id number] [facility] 2023-06-19 00:00:00 2023-06-19 00:00:00 Outpatient GC_GCBZW_Ka diyala_S PRIV PRIV [id number] [facility] 2023-06-18 00:00:00 2023-06-18 00:00:00 Outpatient GC_GCBZW_Ka diyala_S PRIV PRIV [id number] [facility] 2023-06-04 00:00:00 2023-06-04 00:00:00 Outpatient GC_GCBZW_Ka diyala_S [facility] [id number] [facility] 2022-08-23 13:30:00 2022-08-23 13:30:00 Outpatient [facility] [id number] [facility] 2022-08-08 15:30:00 2022-08-08 15:30:00 Outpatient R PUSHPAMONIJARVISMOY CALDERON [facility] [id number] [facility] 2020-06-13 16:15:00 2020-06-13 16:15:00 Outpatient R JOHN [facility] [id number] [facility] 2020-06-06 15:55:12 2020-06-06 23:59:00 Hospital [facility] 1..840.114 [id number] [facility] 2020-06-06 16:00:00 2020-06-06 16:00:00 Outpatient R JOHN [facility] [id number] [facility] 2020-06-06 15:34:00 2020-06-06 15:49:00 Office Visit [facility] 1..840.114 [id number] [facility] 2020-06-06 00:00:00 2020-06-06 00:00:00 Orders Only Doctor Unassigned, [place] [facility] 1..840.114 [id number] [facility] 2020-05-29 00:00:00 2020-05-29 00:00:00 Orders Only Doctor Unassigned, [place] [id number] [facility] Results Test Description Test Time Test Comments Results Resul t Comments Source - CT ABD PELVIS W WO CONT 2023-11-19 14:37:00 [facility] : 1985 Sex: F Name: MARIA DEL CARMEN RUIZ [facility] : 1985 Age/S: 38 / F [id number] Unit #: [id number] Loc: [place] [address] Phys: Ashley Rodriguez MD Acct: [id number] Dis Date: Status: REG CLI PHONE #: [phone] Exam Date: 11/19/2023 1200 FAX #: Reason: PELVIC AND PERINEAL PAIN EXAMS: CPT: [id number] CT ABD PELVIS W WO CONT [address]43 Location Code: S17 EXAMINATION: - CT ABD [...] RUIZ : 1985 Age/S: 38 / F [address] Unit #: [id number] Loc: [place] [address] Phys: Ashley Rodriguez MD Acct: [id number] Dis Date: Status: REG CLI PHONE #: [phone] Exam Date: 11/19/2023 1200 FAX #: Reason: PELVIC AND PERINEAL PAIN EXAMS: CPT: [id number] CT ABD PELVIS W WO CONT 56966 (Continued) No evidence of drainable fluid collection. [...] (1437) [email or web address] Orig Print D/T: S: 11/19/2023 (4401) PAGE 2 Signed Report CBC W/AUTO [id number] 12:25:00* Test Item Value Reference Range Interpretation [...] code = PLTMR) NORMAL NORMAL infectious disease [id number] 11:01:00* Test Item Value Reference Range Interpretation [...] code = hortensia krusei) 0 ppm 10.500-32.000 [facility] Medicalinfectious disease [id number] 11:01:00* Test Item Value Reference Range Interpretation [...] code = hortensia krusei) 0 ppm 10.500-32.000 [facility] Medicalinfectious disease [id number] 11:01:00* Test Item Value Reference Range Interpretation [...] code = hortensia krusei) 0 ppm 10.500-32.000 [facility] Medicalinfectious disease [id number] 11:01:00* Test Item Value Reference Range Interpretation [...] code = hortensia krusei) 0 ppm 10.500-32.[address] [facility] [address] ABD PELVIS [id number] 09:37:00 [facility] : 1985 Sex: F Patient Name: MARIA DEL CARMEN RUIZ Unit No: [id number] EXAMS: CPT CODE: [id number] CT ABD PELVIS W/CONT 40177 CT ABDOMEN AND PELVIS WITH CONTRAST: INDICATIONS:Pelvic [...] walled off collection. No free peritoneal air. Focalfatty infiltration along the falciform ligament. Portal vein [...] suspicious bony lesion. IMPRESSION: [facility] NAME: MARIA DEL CARMEN RUIZ Radiology Department PHYS: Cali Steffany [address]ne [address] : 1985 AGE: 38 SEX: F [place], [place] [address] LOC: F.2600 A PHONE #: [phone] EXAM DATE: 11/08/2023 STATUS: ADM IN FAX #: [phone] RAD NO: Page 1 Signed Report 1 Patient Name: MARIA DEL CARMEN HALL Unit No: [id number] EXAMS: CPT CODE: [id number] CT ABD PELVIS W/CONT 60359 (Continued) Status post hysterectomy. Some fluid strandings and mesenteric inflammations at the surgical site and atsuperior vaginal vault. No discrete walled off collection. Electronically Signed by Barry Melton 11/08/2023 at 0937 Reported and signed by: Barry Cook MD CC: Steffany [place]ne MD; Ashley Garcia MD; Jennifer Salazar MD Technologist: Wei Ontiveros, RT, CT CTDI: 3.98 DLP: 193.93 Trnscrbd D/ (0937) [email or web address].[email or web address] [facility] NAME: MARIA DEL CARMEN RUIZ Radiology Department PHYS: LATESHA. - Steffany [address]ne [address] : 1985 AGE: 38 SEX: F [place], [place] [address] LOC: F.2600 A PHONE #: [phone] EXAM DATE: 11/08/2023 STATUS: ADM IN FAX #: [phone] RAD NO: Page 2 Signed Report 1 Patient Name: MARIA DEL CARMEN RUIZ Unit No: [id number] EXAMS: CPT CODE: [id number] CT ABD PELVIS W/CONT 08101 (Continued) Orig Print D/T: S: 11/08/2023 (0941) [facility] NAME: MARIA DEL CARMEN RUIZ Radiology Department PHYS: BASIA Cali Steffany Byrne [address] : 1985 AGE: 38 SEX: F [place], [place] [address] LOC: Adrien0 A PHONE #: [phone] EXAM DATE: 11/08/2023 STATUS: ADM IN FAX #: [phone] RADNO: Page 3 Signed Report 1CT ABDOMEN PELVIS W JZKFIOPK0672-77-98 04:23:44EXAM: CT ABDOMEN/PELVIS WITH CONTRAST HISTORY: ?Abdominal [...] TISSUES: No suspicious lytic or sclerotic bony lesions.[facility] HospitalLactic Acid Whole Diflf5685-07-69 03:17:00* Test Item Value Reference Range Interpretation Comme nts LACTIC ACID (test code = 6517101171) 1.22 mmol/L 0.50-2.20 Lab Interpretation (test cod e = 11396-3) Normal [facility] WITH WRGU5073-59-63 00:42:59* Test Item Value Reference Range Interpretation [...] 34.5 g/dL 31.6-35.1 RDW-SD (test code = 90618-5) 41.6 fL 39.0-49.9 RDW-CV (test code = 788-0) 12.8 % 12.0-15.5 PLT (test code = 777-3) 387 166-358 H MPV (test code = 24238-6) 10.1 fL 9.5-12.9 NRBC/100 WBC (test code = 6915922160) 0.0 0.0-10.0 NRBC x10^3 (test code = 8228254505) See_Comment [Automated message] The system which generated this result transmitted reference range: 10*3/?L. The reference range was not used to interpret this result as normal/abnormal. GRAN MAT (NEUT) % (test code = 770-8) 70.4 % IMM GRAN % (test code = 9275430451) 0.50 % LYMPH % (test code = 736-9) 19.8 % MONO % (test code = 5905-5) 8.1 % EOS % (test code = 713-8) 0.7 % BASO % (test code = 706-2) 0.5 % GRAN MAT x10^3(ANC) (test code = 6632457791) 13.44 10*3/uL 1.88-7.09 H IMM GRAN x10^3 (test code = 0882835866) 0.09 10*3/uL 0.00-0.06 H LYMPH x10^3 (test code = 731-0) 3.77 10*3/uL 1.32-3.29 H MONO x10^3 (test code = 742-7) 1.55 10*3/uL 0.33-0.92 H EOS x10^3 (test code = 711-2) 0.13 10*3/uL 0.03-0.39 BASO x10^3 (test code = 704-7) 0.10 10*3/uL 0.01-0.07 H Lab Interpretation (test code = 09302-9) [facility]38023[facility]20[facility]-08 00:26:19* Test Item Value Reference Range Interpretation Comme nts NA (test code = 3501353966) 138 mmol/L 135-145 K (test code = 9541566612) 3.3 mmol/L 3.5-5.0 L CL (test code = 2252041866) 109 mmol/L 98-108 H CO2 TOTAL (test code = 1468874571) 22 mmol/L 23-31 L AGAP (test code = 1336689475) 7 2-16 BUN (test code = 4679448961) 17 mg/dL 7-23 GLUCOSE (test code = 3643931794) 99 mg/dL 70-110 CREATININE (test code = 2160-0) 0.69 mg/dL 0.50-1.04 TOTAL BILI (test code = 6466206236) 0.5 mg/dL 0.1-1.1 CALCIUM (test code = 7061516996) 9.1 mg/dL 8.6-10.6 T PROTEIN (test code = 2142220203) 7.1 g/dL 6.3-8.2 ALBUMIN (test code = 1419703075) 4.1 g/dL 3.5-5.0 ALK PHOS (test code = 9375023388) 76 U/L 34-122 ALTv (test code = 1742-6) 19 U/L 5-35 AST(SGOT) (test code = 3412553401) 18 U/L 13-40 eGFR (test code = 13994-9) 114.1 mL/min/1.73m2 CKD-EPI eGFR (2020). Assuming creatinine has been stable day-to-day for at least three months, the eGFR indicates Category G1 (>= 90 mL/min/1.73 m2) Lab Interpretation (test code = 99979-5) Abnormal [facility] HospitalLIPASE2024-03-01 00:25:58* Test Item Value Reference Range Interpretation Comme nts LIPASE (test code = 3984736734) 157 U/L 0-220 Lab Interpretation (test cod e = 65033-9) Normal [facility] HospitalUrinalysis macro (dipstick) panel - Urine 2023-11-07 14:37:00* Test Item Value Reference Range Interpretation Comme nts Leukocytes (test code = Leukocytes) Negative Nitrite (test code = Nitrite) negative Urobilinogen (test code = Urobilinogen) Normal Protein (test code = Protein) Negative pH (test code = pH) 6.0 Blood (test code = Blood) 1+ Specific [place] (test code = Specific [place]) 1.015 Ketone (test code = Ketone) Negative Bilirubin (test code = Bilirubin) Negative Glucose (test code = Glucose) Negative Appearance (test code = Appearance) Slightly Cloudy Color (test code = Color) Dark Yellow [facility] MedicalUrinalysis macro (dipstick) panel - Jqqzu6922-33-57 14:37:00* Test Item Value Reference Range Interpretation Comme nts Leukocytes (test code = Leukocytes) Negative Nitrite (test code = Nitrite) negative Urobilinogen (test code = Urobilinogen) Normal Protein (test code = Protein) Negative pH (test code = pH) 6.0 Blood (test code = Blood) 1+ Specific [place] (test code = Specific [place]) 1.015 Ketone (test code = Ketone) Negative Bilirubin (test code = Bilirubin) Negative Glucose (test code = Glucose) Negative Appearance (test code = Appearance) Slightly Cloudy Color (test code = Color) Dark Yellow [facility] MedicalUrinalysis macro (dipstick) panel - Pecwj6563-97-57 14:37:00* Test Item Value Reference Range Interpretation Comme nts Leukocytes (test code = Leukocytes) Negative Nitrite (test code = Nitrite) negative Urobilinogen (test code = Urobilinogen) Normal Protein (test code = Protein) Negative pH (test code = pH) 6.0 Blood (test code = Blood) 1+ Specific [place] (test code = Specific [place]) 1.015 Ketone (test code = Ketone) Negative Bilirubin (test code = Bilirubin) Negative Glucose (test code = Glucose) Negative Appearance (test code = Appearance) Slightly Cloudy Color (test code = Color) Dark Yellow [facility] MedicalUrinalysis macro (dipstick) panel - Lbvmp1423-90-28 14:37:00* Test Item Value Reference Range Interpretation Comme nts Leukocytes (test code = Leukocytes) Negative Nitrite (test code = Nitrite) negative Urobilinogen (test code = Urobilinogen) Normal Protein (test code = Protein) Negative pH (test code = pH) 6.0 Blood (test code = Blood) 1+ Specific [place] (test code = Specific [place]) 1.015 Ketone (test code = Ketone) Negative Bilirubin (test code = Bilirubin) Negative Glucose (test code = Glucose) Negative Appearance (test code = Appearance) Slightly Cloudy Color (test code = Color) Dark Yellow [facility] MedicalBASIC METABOLIC BBFYE3369-22-95 05:50:00* Test Item Value Reference Range Interpretation [...] CA) 8.3 MG/DL 8.5-10.1 L CBC W/AUTO TQMM1497-31-51 05:03:00* Test Item Value Reference Range Interpretation [...] NRBC#) 0.0 K/mm3 0.0-0.1 N COMPREHENSIVE METABOLIC AFVHN5942-81-99 05:31:00* Test Item Value Reference Range Interpretation [...] code = ALKP) 60 Unit/L 45-117 N ILRUJLMIFMM2499-32-19 05:31:00* Test Item Value Reference Range Interpretation Comme nts PHOSPHOROUS (test code = PHOS) 2.8 MG/DL 2.5-4.9 N KERDVYRMI9159-78-41 05:31:00* Test Item Value Reference Range Interpretation Comme nts MAGNESIUM (test code = MAG) 2.3 MG/DL 1.8-2.4 N PROTHROMBIN XVUT7569-59-84 05:21:00* Test Item Value Reference Range Interpretation Comme nts PT PATIENT (test code = PTP) 11.8 [...] Infarction (to prevent recurrent infarct). THROMBOPLASTIN TIME WUHCZWQ6690-19-96 05:21:00* Test Item Value Reference Range Interpretation Comme nts THROMBOPLASTIN TIME PARTIAL (test code = PTT) 26.9 SECONDS 26-35 N FRLPGJEUNQ8931-29-36 05:21:00* Test Item Value Reference Range Interpretation Comme nts FIBRINOGEN (test code = FIB) 297 mg/dL 185-453 N CBC W/AUTO QAOF3950-90-08 05:13:00* Test Item Value Reference Range Interpretation [...] = NRBC#) 0.0 K/mm3 0.0-0.1 N LACTIC PCVU3369-45-87 20:28:00* Test Item Value Reference Range Interpretation Comme nts LACTIC ACID (test code = LACT) 0.9 mmol/L 0.4-2.0 N - CT ABD PELVIS W/INIR5195-87-11 19:03:00 [facility] : 1985 Sex: F Name: MARIA DEL CARMEN RUIZ [facility] : 1985 Age/S: 38 / F [address] Unit #: [id number] Loc: [place] [address] Phys: Joe Torres BEVELLER OPERATOR Acct: [id number] Dis Date: Status: REG ER PHONE #:[phone] Exam Date: 10/21/20231837 FAX #: Reason: pain EXAMS: CPT: [id number] CT ABD PELVIS W/CONT 96278 Location:7 EXAM: CT ABDOMEN/PELVIS WITH CONTRAST DATE: [...] RUIZ : 1985 Age/S: 38 / F [address] [facility] Unit #: [id number] Loc: [place] [address] Phys: Joe Torres BEVELLER OPERATOR Acct: [id number] Dis Date: Status: REG ER PHONE #: [phone] Exam Date: 10/21/20231837 FAX #: Reason: pain EXAMS: CPT: [id number] ABD PELVIS W/CONT 81286 (Continued) No retroperitoneal, mesenteric or pelvic lymphadenopathy. Nofluid collections or free fluid. No free air. The uterus is absent. No adnexal mass. The urinary bladder is decompressed limiting its evaluation.. No acute osseous lesions. Post surgical changes of an anterior abdominal wall repair. IMPRESSION: No acute abdominal or pelvic abnormality. at 1903 Reported and signed by: Kendal Hudson M.D. CC: Joe Torres BEVELLER OPERATOR; Ashley Rodriguez MD Technologist:Amadou Varela, RT(R)CTDI: DLP: Trnscb Date/Time: 10/21/2023 (1902) Marie Orig Print D/T: S: 10/21/2023 (1906) PAGE 2 Signed Report- CT ABD PELVIS W/WPBQ5287-76-62 19:03:00 [facility] : 1985 Sex: F Name: MARIA DEL CARMEN RUIZ [facility] : 1985 Age/S: 38 / F [address] Unit #: [id number] Loc: [place] [address] Phys: Joe Torres NP Acct: [id number] Dis Date: 10/23/2023 Status: DIS IN PHONE #: [phone] Exam Date: 10/21/2023 6435 FAX #: Reason: pain EXAMS: CPT: [id number] CT ABDPELVIS W/CONT 14545 Location:[facility] EXAM: CT ABDOMEN/PELVIS WITH CONTRAST DATE: [...] normal in size, shape and location without massor hydronephrosis. The bowel is unremarkable. The vascular structures are unremarkable. PAGE 1 Signed Report (CONTINUED) Name: MARIA DEL CARMEN RUIZ : 1985 Age/S: 38 / F [address] Unit #: [id number] Loc: [place] [address] Phys: Joe Torres NP Acct: [id number] Dis Date: 10/23/2023 Status: DIS IN PHONE #: [phone] Exam Date: 10/21/2023 183 FAX #: Reason: pain EXAMS: CPT: [id number] CT ABD PELVIS W/CONT 81712 (Continued) No retroperitoneal, mesenteric or pelviclymphadenopathy. No fluid collections or free fluid. No free air. The uterus is absent. No adnexal mass. The urinary bladder is decompressed limiting its evaluation.. No acute osseous lesions. Post surgical changes of an anterior abdominal wall repair. IMPRESSION: No acute abdominal or pelvic abnormality. at 1903 Reported and signed by: Kendal Hudson M.D. CC: Joe Torres NP; Ashley Rodriguez MD Technologist:Amadou aVrela, RT(R) CTDI: DLP: Trnscb Date/Time: 10/21/2023 (1902) t.SDR.MOP Orig Print D/T: S: 10/21/2023 (1906) PAGE 2 Signed ReportUA RFLX MICR CULT IF VMUURNZIT4392-95-85 18:25:00* Test Item Value Reference Range Interpretation [...] srcSOURCE OF URINE: CLEAN CATCH BASIC METABOLIC VMRCV8634-47-39 18:12:00* Test Item Value Reference Range Interpretation [...] CA) 9.1 MG/DL 8.5-10.1 N HEPATIC FUNCTION KUEHP2962-81-65 18:12:00* Test Item Value Reference Range Interpretation [...] ALKP) 79 Unit/L 45-117 N CBC W/AUTO MTXB0163-16-79 17:49:00* Test Item Value Reference Range Interpretation [...] NRBC#) 0.0 K/mm3 0.0-0.1 N infectious disease pejaf1558-99-04 03:20:00[facility] infectious disease nzffb7084-41-86 03:20:00Abnormal StatusPriv[facility] MedicalSURGICAL 2023-09-26 16:31:00* Test Item Value Reference Range Interpretation Comme nts SURGICAL (test code = SR) RUN DATE: 09/26/23 [facility] PAGE 1 RUN TIME: 163 Specimen Inquiry RUN USER: INTERFACE PATIENT: MARIA DEL CARMEN RUIZ LOC: [place] U #: [id number] AGE/SX: 37/F ROOM: RE09/23/23[facility] DR: Ashley Rodriguez MD : [birth year] BED: DIS: STATUS: [facility] TLOC: SPEC #: [id number]:[id number] RECD: 09/23/23 STATUS: [facility] #: [id number] SANTY: 09/23/23-0 [facility] DR: Ashley Rodriguez MD ENTERED: 09/23/23 SP TYPE: SURGICAL OT DR: ORDERED: 99778, 64633, ANATOMIC SPEC, SPECIMEN TRACK PROCEDURES: 34841 (09/23/23-2009) 22799 (09/26/23-1630) SPECIMEN TRACK (09/23/23) TISSUES: A. UTERINE CURETTINGS [...] CONTINUED ON NEXT PAGE RUN DATE: 09/26/23 [facility] PAGE 2 RUN TIME: 1631 Specimen Inquiry RUN USER: INTERFACE SPEC #: [id number]:[facility]:[id number] PATIENT: MARIA DEL CARMEN RUIZ #[id number] (Continued) GROSS DESCRIPTION (Continued) B1 posterior cervixB2 anterior cervixB3-B4 posterior endomyometrium B5-B6 anterior endomyometriumB7 posterior reflection B8-B11 left ovarian cyst B12 left fallopian tube cut surface with entire bisected fimbriated end B13 right fallopian tube cut surface with entire bisected fimbriated end Technical tissue processing and slide preparation performed at [facility],[place] [address] , [place] [address] MICROSCOPIC DESCRIPTION A and B. Microscopic examination is performed and the findings are incorporated into thefinal diagnosis. Please see diagnosis for findings. Signed SIGNATURE ON FILE Moisés Matt 09/26/23 1631 END OF REPORT GLUCOSE BEDSIDE IISFKQE3646-70-06 13:09:00* Test Item Value Reference Range Interpretation Comme nts GLUCOSE BEDSIDE TESTING (anamaria t code = GLUBED) 85 mg/dL 70-110 N BASIC METABOLIC IXWNR8694-53-81 12:19:00* Test Item Value Reference Range Interpretation [...] CA) 9.7 MG/DL 8.5-10.1 N CBC W/AUTO [id number] 12:06:00* Test Item Value Reference Range Interpretation [...] = NRBC#) 0.0 K/mm3 0.0-0.1 N URINALYSIS UOVJYTPI0472-90-47 12:00:00* Test Item Value Reference Range Interpretation [...] NEGATIVE Urine Specimen Type: Clean CatchUR HCG KSAM1039-22-49 12:00:00* Test Item Value Reference Range Interpretation Comme nts UR HCG QUAL (test code = HCGQLU) NEGATIVE NEGATIVE Urine Specimen Type: Clean CatchXR HAND <3 VW VPQFA9769-61-67 21:43:26No sign of fracture or dislocation joint space is well-maintainedSt. [facility]'s [facility] Notes Date/Time Note Provider Source 2023-11-24 12:28:00 [id number]Kp+A Z 0vgz7eo+IZlGyxpfqS5AOP0NzvQSnTkVu038201-6 11-23T12:28:937860-2906 [facility] [address], [place] [address] PATIENT NAME: MARIA DEL CARMEN RUIZ ADMIT DATE: 11/08/23ACCOUNT NO: [id number] ROOM NO: 260 AGE: 38 SEX: F ADMITTING PHYSICIAN: Jennifer Salazar MD ATTENDING PHYSICIAN: Jennifer Salazar MD Provider Query QUERY TEXT: Relationship Procedure Condition 360MD Query related questions should be directed to:[facility] Coding Query Hotline Please clarify [...] were noted on imaging. - Discharge Summary 11/10/2023ost operative course has been complicated by readmission [...] 1228 PATIENT NAME: MARIA DEL CARMEN RUIZ noteF.[id number] for patient jmkgVFQVZSDZOLUNHC9956-82-67G79:28:27 [facility] 2023-11-10 08:22:00 [id number]Eivs l qWDVZ3ZsE8kU7y3sK9teepQq6jMIlItDD7E4337-8 08:22:00 [facility] ([facility])Discharge SummaryREPORT#:[id number] REPORT STATUS: SignedREPORT INITIALIZATION DATE:11/10/23 TIME: 821 PATIENT: MARIA DEL CARMEN RUIZ UNIT #: [id number]#: [id number] ROOM[facility]BED: [facility]-ADOB: [birth year] AGE: 38 SEX: F ATTEND: Jennifer [...] pelvic adhesions (09/23)who was transferred from [facility] for pelvic abscesses. The patient's post operative [...] useof this antibiotic. She will see her AGED OR DISABLED CARER outpatient. Med Rec PCPPCP:PCP: Ashley Rodriguez MD ObjectiveVS/I OLast Documented: Result Date Time Pulse Ox 98 11/10 315 B/P 116/80 11/09 031 B/P Mean 92.1 11/10 315 Temp 97.5 11/10 315 Pulse 79 11/10 315 Resp 18 11/09 031 O2 Delivery Room air 11/08 1548 24 hour I O ending at 0700: 11/09 0700 11/08 1900 Intake Total 1540.00 1750.00 Output Total 50 Balance 1490.00 1750.00 Intake, IV 1000.00 950.00 Intake, Oral 540 800 Number Voids 3 5 Output, Stool 50 PATIENT WEIGHT: Weight (lb): 121Weight (oz): Weight (kg): 54.510273 General appearance: alert, awake, orientedCardiovascular: regular rate rhythmRespiratory: no distressGI: soft, non-tender ResultsResults: no new labs, labs reviewed, vital signs reviewed, vital signs stable, CT results reviewed Discharge Instructions PCPPCP:PCP: Ashley Rodriguez MD Discharge InstructionsAdditional Discharge Routines: PCP Follow-Up at 0831 RPT #:[id number] OF REPORT DSDischarge ixxlhxa2432-76-62Y39:22:00F.LKLD39353013- 0040AVAvailable for patient lcfwWOXNTIHDLUYLJA0297-88-67F44:31:27 [facility] 2023-11-09 10:32:00 [id number]tw5E 8 d+oYc11PY31mo/gmAMa3O/ODb7wM2fT+xKi7672-0 11-08T10:32:00 [facility] ([facility]ITALGynecology Progress NoteREPORT#:[id number] REPORT STATUS: SignedREPORT INITIALIZATION DATE:11/09/23 TIME: 1031 PATIENT: MARIA DEL CARMEN RUIZ UNIT #: [id number]#: [id number] ROOM/BED: [facility]-ADOB: [birth year] AGE: 38 SEX: F ATTEND: Jennifer [...] Pulse Resp B/P B/P Mean Pulse Ox DpQ280/01-11/08 97.7-98.1 86-99 16-19 100-133/70-97 80.1-107.8 94-100 Physical ExamHEENT: moist mucosal membranesRespiratory: no distressAbdomen: non-tender, soft, no CVA tenderness, no distention, no guarding, no reboundExtremities: moves all, no calf tenderness, no edemaNeuro/PAEDODONTIST: alert, oriented X 3, normal speech ResultsFindings/Data:Laboratory [...] (Auto) (14.5 - 29.7 %) 31.3 H [place] % (Auto) (3.6 - 10.2 %) 8.5 Eos % (Auto) (0.0 - 3.0 %) 4.2 H Baso % (Auto) (0.1 - 0.9 %) 0.8 Neut # (Auto) (K/mm3) 4.7 Lymph # (Auto) (K/mm3) 2.7 [place] # (Auto) (K/mm3) 0.7 Eos # (Auto) [...] coverage2. Constipation: Miralax prn at 2220 RPT #:[id number] OF REPORT PRProgress vwxa0470-13-79L86:32:00F.RUKR49248242-396 0AVAvailable for patient nbgjIYHGHKEGJKWXSQ4237-07-77G87:21:20 [facility] 2023-11-08 09:52:00 [id number]xro x r64mIHAcHvRNjesmkzs7qCKi90Y75Nfci629907-4 11-07T09:52:00 [facility] ([facility])Gynecology Progress NoteREPORT#:[id number] REPORT STATUS: SignedREPORT INITIALIZATION DATE:11/08/23 TIME: 951 PATIENT: MARIA DEL CARMEN RUIZ UNIT #: [id number]#: [id number] ROOM/BED: [facility]-ADOB: [birth year] AGE: 38 SEX: F ATTEND: Jennifer Salazar MDADM AUTHOR: Steffany Byrne MDREPT SERVICE DT/TIME: 11/08/23 09* ALL edits or amendments must be [...] Pulse Ox 100 11/07 0218 B/P 95/56 / 0218 B/P Mean 69 11/07 0218 O2 Delivery Room air 11/07 0218 Temp 97.9 11/07 0218 Pulse 84 / 0218 Resp 18 11/07 0218 Last Documented: Result Date Time Pulse Ox 98 03/ 0745 B/P 113/84 11/07 0745 B/P Mean 93.7 11/07 0745 O2 Delivery Room air 11/07 0745 Temp 97.9 11/07 0745 Pulse 93 11/07 0745 Resp 18 11/07 0745 24 hour I O ending at 0700: 11/07 0700 1900 Intake Total Output Total Balance Patient 121 lb Weight Weight Stated/Reported Measurement Method PATIENT WEIGHT: Weight (lb): 121Weight (oz): Weight (kg): 54.275863 Medications:Active Meds + DC'd Last 24 Hrs Clindamycin HCl/Dextrose (CLEOCIN 900MG IVPB - 50ML) 50 ML Q8H IV Gentamicin Sulfate/Sodium Chloride (GENTAMICIN 120MG/NS 100ML) 200 ML Q24H IV Ibuprofen (IBUPROFEN 800 MG TAB) 800 MG Q8H PO Oxycodone/Acetaminophen (PERCOCET TAB 5/325 MG) 1 TAB Q4H PRN PRN PO Lactated Ringer's (LACTATED RINGERS) 1,000 ML .E73T70E IV Physical ExamGeneral appearance: alert, awake, oriented, no acute distress, pleasant, sittingup in bedHEENT: moist mucosal membranesRespiratory: aerating well, symmetric expansionAbdomen: normal bowel sounds, non-tender, soft, no CVA tenderness, no distention, no guarding, no reboundExtremities: moves all, no calf tenderness, no edemaNeuro/PAEDODONTIST: alert, oriented X 3, normal speech ResultsFindings/Data:Laboratory [...] % (Auto) (14.5 - 29.7 %) 22.2 [place] % (Auto) (3.6 - 10.2 %) 9.3 Eos % (Auto) (0.0 - 3.0 %) 2.0 Baso % (Auto) (0.1 - 0.9 %) 0.7 Neut # (Auto) (K/mm3) 9.1 Lymph # (Auto) (K/mm3) 3.1 [place] # (Auto) (K/mm3) 1.3 Eos # (Auto) (K/mm3) 0.28 Baso # (Auto) (K/mm3) 0.1 Results: labs reviewed, vital signs reviewed, [facility] and summarized above ([facility]) Diagnosis, Assessment PlanFree Text A P:38 year old status post RA-TLH/BS/LSO/extensive lysis of adhesions with suspected vaginal cuff cellulitis vs. early pelvic abscesses-Repeat CT scan noted above, IR drainage not indicated based on CT scan performed here-Gent/Clinda continue for abx coverage- repeat cbc in am, today improved WBC count from 19,000--continue current mgmtPlan discussed with: patient, nurse at 1602 RPT #:[id number] OF REPORT PRProgress qipx2924-49-08E50:52:00F.REHU02429401-476 5AVAvailable for patient nlaoATFBSIMAUELHPR6658-96-73U75:02:52 [facility] 2023-11-08 06:44:00 [id number]G6nd 6 JJxtG+iTOvGQFbd7tiIqLyaFUptDIA4IJhW4678-5 11-07T06:44:[address] [facility])AGED OR DISABLED CARER Admission H PREPORT#:[id number] REPORT STATUS: SignedREPORT INITIALIZATION DATE:11/08/23 TIME: 0644 PATIENT: MARIA DEL CARMEN RUIZ UNIT #: [id number]#: [id number] ROOM/BED: [facility]-ADOB: [birth year] AGE: 38 SEX: F ATTEND: Jennifer Salazar MDADM AUTHOR: Jennifer Salazar MDREPT SERVICE DT/TIME: 11/08/23 0644* ALL edits or amendments must be made on the electronic/computer document * History of Present IllnessChief complaint:Pelvic pain Free Text HPI NotesFree Text HPI Notes:38 year old stauts post RA-TLH/BS/LSO/extensive lysis of pelvic adhesions (09/23)who was transferred from [facility] for pelvic abscesses. The patient's post operative [...] 11/07 299 AC 11/07 Acetaminophen PO 01/06 259 0345 (PERCOCET TAB 5/325 MG) Electrolytic, Caloric, And Lynn Sig/Anmol Start time Last Medication Dose Route Stop Time Status Admin Lactated Ringer's 1,000 ML .E10M13W 11/07 244 AC 11/07 (LACTATED RINGERS) IV [...] WEIGHT: Weight (lb): 121Weight (oz): Weight (kg): 54.483474 General appearance: alert, awake, orientedCardiovascular: regular rate rhythmAbdomen/GI: soft, non-tender, no guarding, no rebound Diagnosis, Assessment Plan Free Text DxA P NotesFree Text DxA P Notes:38 year old status post RA-TLH/BS/LSO/extensive lysis of adhesions with suspected pelvic abscesses/cellulitis-Repeat CT scan -Consider IR drainage if indicated-Gent/Clinda started for antibiotic coverage. [facility] [address] [facility] #:[id number] OF REPORT HPHistory and physical wzxcyfkipzp9033-30-00W68:44:00F.VJPY29555 301-0035AVAvailable for patient tlgfHYCPSIUSUUXECK2131-65-07D02:52:00 [facility] 2023-11-08 00:28:31 j0Ei30W42jVh1Al4KPePjbHFtdJa97LLvzgtjvwE 0 Qjw89i0pjxDihTmxVVmUf5Y8948-14-50D72:28:3 1 Report to [facility] [address]-7Elzbjacmx department HesbID0857-01-24U96:28:44Emergency department NoteTXT1.2.840.676240.1.13.104.2.7.2.7278 79|[id number] for patient fzgr06097-5PhlbESHZOIHPTUEEcdtnjoob C-CDA narrative lqlk666157820Fnrpxl R Shehadeh [address] VzssYuepbffczFykuukbapKNBU9996470492QLYYC TTUFGIZSIVQYYIYWA4102-99-96N81:28:441.2.8 40.124093.1.72.3.15|1.2.840.923762.1.13.1 04.2.7.2.727879_2037683178 Alice Hook RN [facility] 2023-11-07 23:58:34 sCgfr9ttNsSpEQqlIq0+Ia/tpANyBpriLc2CQDMb B s4tYndLboDpICWSRyQLlM1d3892-22-97I64:58:3 4 Patient transferring to [facility] for diagnosis of postop infectionPatient agrees to transfer/admit plan and verbalized understanding of plan of care, family aware of planPatient awake alert, oriented, resp reg unlabored, skin w/d PIV patent, no s/s infiltration noted,No adverse reaction to medications given while in ED.[facility] Alice Hook RN at 11/08/2023 12:00 AM [id number] department FzgpFT1471-04-46A14:00:06[facility] NoteTXT1.2.840.416498.1.13.104.2.7.2.7278 79|[id number] for patient tspb27567-7SosgMXSKONQBVBTCpbsynpsp C-CDA narrative text[address] Te[id number] EWFUYJISKRKMJDTQX1703-73-58G14:00:061.2.8 40.324220.1.72.3.15|1.2.840.322271.1.13.1 04.2.7.2.727879_[id number] [facility] 2023-11-07 23:11:10 /R5VdLjzEwt9Y3c49YLyCn00w0dV5aYnpXMj3Hlo N TziZdyuWtNeoNW2DVXLs24Q2153-51-63Y44:11:1 0 Report given to BLAYNE Hook [id number] department YxbrIE1288-38-58Y53:11:41[facility] NoteTXT1.2.840.372956.1.13.104.2.7.2.7278 79|[id number] for patient djtu70858-8UibiGHIFPYLWMHQWzkeoxmmf C-CDA narrative [id number] M Herrera RNUT[address]Yx[id number] HDTKNNERTGDGDXPUE4489-50-68X41:11:411.2.8 40.996478.1.72.3.15|1.2.840.917200.1.13.1 04.2.7.2.727879_[id number] Heidiveronika Dickson RN [facility] 2023-11-07 17:01:00 fivCfL3A/IhdVeFL2/qID9vIjVp/9HIOTQfMXeJN X 6FqLOOeIoZFNDHNtFTkfAZG3927-25-38E47:01:0 0 Pt states she is having abd pain; she had a hyst on 09/23/2023. States she saw of ob today and was told the abd pain was not related to the hyst. 23560-6Oxewmylfj department Triage wyjdOY4327-90-34N82:02:59[facility] Triage noteTXT1.2.840.447983.1.13.104.2.7.2.7278 79|[id number] for patient ksnv51890-6Xzjyidwwx department NoteLNNARRATIVEFormatted C-CDA narrative text[address] Johnson [id number] DPSCMGLTSJHGBKHXH7322-75-67L99:02:591.2.8 40.637459.1.72.3.15|1.2.840.755493.1.13.1 04.2.7.2.727879_[id number] [facility] 2023-11-07 16:47:00 paBix0tukvGQF93+06BtpGxgFsbowQdFVxnyPTSl S jg9KfW6P+fUsMws0aoWqUVx2859-28-22M45:47:0 0 Images from the original note were not included.EMERGENCY DE[facility]MENT [facility]Patient Name: Maria Del Carmen [place] of : 1985 38 year oldMRN: [id number] Room:[facility]/[address] Physician: PATIENT DOES NOT HAVE A PCPPre- HospitalPatient Escorted by: Self [9]Mode of Arrival: Personal means [1]EMS Treatment Prior to ED Arrival:CUSTOMS COMPLIANCE MANAGER treatment: NoneED EventsDate/Time Event User Zaifjqqy99/29/24 1651 Medical Screening Begins JOCELYN TORREZ MD --11/07/23 1651 First Provider Evaluation JOCELYN TORREZ MD --Chief [...] received in last 5 years: UnknownChildhood immunizations: Jr-zw-akjxAubs Surgical HistoryPast Surgical History:Procedure Laterality DateCHOLECYSTECTOMY 10/2007UMBILICAL HERNIORRHAPHY N/A 03/11/2017Surgeon: José Miguel Rene MD; [facility]iesAllergiesAllergen ReactionsLevaquin [Levofloxacin] Nausea and/or VomitingPcn [Penicillins] [...] (*) 0.01 - 0.07 10*3/uLCOMP. METABOLIC PANEL (21848) - AbnormalNA 138 135 - 145 mmol/LK [...] U/LAST(SGOT) 18 13 - 40 U/LeGFR 114.1 mL/min/1.61o5QWRKKJGOKB - AbnormalAPPEARANCE Clear ClearCOLOR Straw (*) YellowPH [...] PELVIS W CONTRASTCBC WITH DIFFCOMP. METABOLIC PANEL (49185)LIPASEURINALYSISBLOOD CULTURE SCREENBLOOD CULTURE SCREENLactic Acid Whole BloodLactic [...] gentamicin. The patient request to go to [facility]. She was accepted by Dr. Titus to [...] on fileSTOP taking these medicationsNo medications on fileDonlinda Torrez Jr. MDClinical Air Quality Specialist ProfessorALBUQUERQUE INDIAN DENTAL CLINIC Emergency DepartmentDragon Dictation Software is used frequently and may produce errors. Promptly contact for obvious discrepancies.Jocelyn Torrez MD11/07/23 2246NeJocelyn bernardo MD11/07/23 2259 87607-7Fccaydwsc Emergency department LofkRA2196-10-64B69:59:11Physian Emergency department NoteTXT1.2.840.405318.1.13.104.2.7.2.7278 79|[id number] for patient brec13287-4Ronwuvvfv department NoteLNNARRATIVEFormatted C-CDA narrative textUTHOLY [facility]OSS [facility] - [address] Ejr[id number] WCUEOLNEMEITYVTNU5632-80-09U48:59:111.2.8 40.462150.1.72.3.15|1.2.840.280012.1.13.1 04.2.7.2.727879_[id number] [facility] 2023-10-23 09:10:00 [id number]Bv8H dalia AgNVmb54tsXexvCy3jkonnj7th1AkX9uNsn2379-7 10-23T09:10:00 [facility])Hospitalist Discharge SummaryREPORT#:[id number] REPORT STATUS: SignedREPORT INITIALIZATION DATE:10/23/23 TIME:909 PATIENT: MARIA DEL CARMEN RUIZ UNIT #: [id number]#: [id number] [address] [birth year] AGE: 38 SEX: F ATTEND: Mack Pack MDADM AUTHOR: Mack Pack MDREPT SERVICE DT/TIME: 10/23/23 09* ALL edits or amendments must be made on the electronic/computer document * General InformationDischarge date: 10/23/23Discharge diagnosis:# Pelvic pain with vaginal discharge-S/p hysterectomy 09/23/2022 complicated by infection x 2-Hospital course:# Pelvic pain with vaginal discharge-S/p hysterectomy 09/23/2022 complicated by infection x 2-SET 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 Rodriguez has been consulted-Continue IV Zosyn [...] radial, R dorsalis pedis, L dorsalis pedis. Neuro/PAEDODONTIST: alert, oriented X 3, CNII-XII intactSkin: dry, intact, normal color, normal temperature, no rashPsychiatry: normal affect, normal mood Discharge Instructions PCPDischarge to: Home/Self CareAdditional Discharge Routines: PCP Follow-Up, Fulfillment Specialist Follow-UpDiet: Resume Home Diet/FeedsDischarge management: greater than 30 mins Follow-up AppointmentsPCP follow-up: PCP: Ashley Rodriguez MD PCP follow up timeframe: In 1-[address] [facility] #: [id number] OF REPORT DSDischarge dfldwmw7400-58-97W25:10:00L.YNBS36848432- 0036AVAvailable for patient ovieKZDQRNFDVMZRXF9398-88-17N34:59:48 [facility] 2023-10-22 14:21:00 [id number]cojCic A IlFUVy+lLtparlfVGcR1G7nI144JcqR6SBw8822-2 10-22T14:21:00 [facility] ([facility])Hospitalist Progress NoteREPORT#:[id number] REPORT STATUS: SignedREPORT INITIALIZATION DATE:10/22/23 TIME:1420 PATIENT: MARIA DEL CARMEN RUIZ UNIT #: [id number]#: [id number] [address] AGE: 38 SEX: F ATTEND: Mack Pack MDA AUTHOR: Mary Ellen Chin MDREPT SERVICE DT/TIME: [...] days ago. Patient was seen by her carpenter mold today and was sent over for further evaluation for concerns of possible pelvic abscess. Patient has been onantibiotics by her carpenter mold. CT A/P with no abnormal finding. Patient [...] radial, R dorsalis pedis, L dorsalis pedis. Neuro/PAEDODONTIST: alert, oriented X 3, CNII-XII intactSkin: dry, [...] (1.2 - 2.2 RATIO) 1.0 L 10/21 1730 Chemistry Sodium (134 - 147 [...] (0.8 - 1.2 INR Unit) 1.05 PTT (Sierra) (26 - 35 SECONDS) 26.9 PT Patient/Control Mix (9.3 - 12.9 SECONDS) 11.8 Fibrinogen (185 - 453 mg/dL) 297 Laboratory Tests 10/22 173 Hematology WBC (3.5 - 11.0 K/mm3) 8.7 [...] (Auto) (20.5 - 51.1 %) 33.7 34.0 [place] % (Auto) (1.7 - 9.3 %) 10.1 H 9.4 H Eos % (Auto) (0.0 - 6.0 %) 5.2 3.1 Baso % (Auto) (0.0 - 2.0 %) 0.8 0.8 Neut # (Auto) (1.8 - 7.6 K/mm3) 4.3 4.8 Lymph # (Auto) (0.6 - 3.2 K/mm3) 2.9 3.1 [place] # (Auto) (0.3 - 1.1 K/mm3) 0.9 [...] - 7.0 pH UNITS) 6.0 Ur Specific Oakwood (1.005 - 1.030 SG) <=1.005 Urine Protein [...] acute abdominal or pelvic abnormality.Impression By: Marie - Kendal Hudson M.D. InterpretationI independently reviewed the [ ] and my interpretation is [ ] Diagnosis, Assessment PlanConsultants: OBGYN Free Text DxA P NotesFree text DxA P notes:# Pelvic pain with vaginal discharge-S/p hysterectomy 09/23/2022 complicated by infection x 2-SET 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 Rodriguez has been consulted-Continue IV Zosyn antibiotic for empirical coverage-Pain management with as needed morphine-Further management per Dr. Rodriguez DVT prophylaxis: SCDsGI prophylaxis: PEPCIDDisposition Anticipated: Home with family support. Time Spent on Patient Care, Coordination and Counselin min. Code Status: Full code. at 1423 RPT #: [id number] OF REPORT PRProgress mkcl6211-66-11J15:21:00L.CDFQ62466875-581 1AVAvailable for patient gjrvKLPJICEEQQSNGP3027-82-34N14:23:38 [facility] 2023-10-21 21:20:00 [id number]+xIcShVP5MrZcsAFLDg1Lp3dJ s fagS/CNYAtV6ANzJ7sLQETYXzfzADJE/Nqv4660-4 10-21T21:20:00 [facility] ([facility])Hospitalist History PhysicalREPORT#:[id number] REPORT STATUS: SignedREPORT INITIALIZATION DATE:10/21/23 TIME:2119 PATIENT: MARIA DEL CARMEN RUIZ UNIT #: [id number]#: [id number] [address]PRX: [birth year] AGE: 38 SEX: F ATTEND: Mack Pack [facility] AUTHOR: Jacy Quick I APRNNPREPT SERVICE DT/TIME: [...] days ago. Patient was seen by her carpenter mold today and was sent over for further evaluation for concerns of possible pelvic abscess. Patient has been onantibiotics by her carpenter mold. CT A/P with no abnormal finding. Patient [...] Sodium Chloride (0.9% Sodium Chloride) 1,000 ML .[id number] IV Tramadol HCl (ULTRAM) 50 MG Q6H [...] radial, R dorsalis pedis, L dorsalis pedis. Neuro/PAEDODONTIST: alert, oriented X 3, CNII-XII intactSkin: dry, [...] % (Auto) (20.5 - 51.1 %) 34.0 [place] % (Auto) (1.7 - 9.3 %) 9.4 H Eos % (Auto) (0.0 - 6.0 %) 3.1 Baso % (Auto) (0.0 - 2.0 %) 0.8 Neut # (Auto) (1.8 - 7.6 K/mm3) 4.8 Lymph # (Auto) (0.6 - 3.2 K/mm3) 3.1 [place] # (Auto) (0.3 - 1.1 K/mm3) 0.9 [...] - 7.0 pH UNITS) 6.0 Ur Specific Oakwood (1.005 - 1.030 SG) <=1.005 Urine Protein [...] Pelvic pain with vaginal discharge- possible pelvic infection-SET 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 Rodriguez has been consulted-Continue IV Zosyn [...] Staff at 1231 at 1301 RPT #: [id number] OF REPORT HPHistory and physical dcwuanjmjpt6831-80-66K62:20:00L.YPZX19743 212-0277AVAvailable for patient ymwhGFMRKWVPNYDANY7760-17-35A88:31:42 [facility] 2023-10-21 17:54:00 [id number]0kGf b c7mqnxl/NvyLfPc9b1DCD99XppI4kEEiwe/10-21T17:54:00 [facility] ([facility])EMERGENCY PROVIDER REPORTREPORT#:[id number] REPORT STATUS: SignedDATE:10/21/23 TIME:1753 PATIENT: MARIA DEL CARMEN RUIZ UNIT #: [id number]#: [id number] ROOM/BED: T419-7MKX: 85 AGE: 38 SEX: F PCP PHYS: Ashley Rodriguez MDSERVICE AUTHOR: Joe Torres BEVELLER OPERATOR * ALL edits or amendments must be made on the electronic/computer document * Joe Torres 10/21/231753:HPI-Abd Pain F 40 and Over Free Text HPI NotesFree Text HPI Jgayf62-fldu-kas female presents to the emergency department with complaints of lowerabdominal pain. Patient was seen by her carpenter mold today and was sent over for further evaluation for concerns of possible pelvic abscess. Patient has been on antibiotics by her carpenter mold. Patient also reports vaginal discharge. GeneralConfirmed Patient YesInitial Greet Date/Time 10/21/231649 PresentationChief Complaint Abdominal painHx Obtained From Patient, [...] Temp 37.2 10/21 1699 Pulse 103 10/21 1700 Resp 17 10/210 Last Documented: Result Date Time Pulse Ox 100 10/21 1700 B/P 133/93 10/21 1700 B/P Mean 106 10/21 1700 O2 Delivery Room air 10/21 1699 Temp 37.2 10/21 1699 Pulse 103 10/21 1700 Resp 17 10/21 1699 Review of Vital [...] % (Auto) (20.5 - 51.1 %) 34.0 [place] % (Auto) (1.7 - 9.3 %) 9.4 H Eos % (Auto) (0.0 - 6.0 %) 3.1 Baso % (Auto) (0.0 - 2.0 %) 0.8 Neut # (Auto) (1.8 - 7.6 K/mm3) 4.8 Lymph # (Auto) (0.6 - 3.2 K/mm3) 3.1 [place] # (Auto) (0.3 - 1.1 K/mm3) 0.9 [...] - 7.0 pH UNITS) 6.0 Ur Specific Oakwood (1.005 - 1.030 SG) <=1.005 Urine Protein (NEG mg/dL) NEGATIVE Urine Glucose (UA) (NEG mg/dL) NEGATIVE Urine Ketones (NEG mg/dL) NEGATIVE Urine Blood (NEG mg/DL) TRACE H Urine Nitrite (NEG SCREEN) NEGATIVE Urine Bilirubin (NEG mg/dL) NEGATIVE Urine Urobilinogen (<2.0 mg/dL) 0.2 Ur Leukocyte Esterase (NEGATIVE Leuk/mcL) NEGATIVE Microbiology: Date/Time Procedure - Status Source Growth 10/21 1742 Blood Culture - COMP BLOOD 10/21 173 Blood Culture - COMP BLOOD Recent Impressions:CAT [...] note ConsultationConsultation Referral/Consult Name Ashley Rodriguez MD Fulfillment Specialist Called SET OFF PRESS OPERATOR Fulfillment Specialist Discussed with research consultant, Will see patient Requested Call Date [...] DecisionHospitalize Hosp Physician Name Mack Pack MD [facility] Physician Hospitalist Request Time 1928 [...] over this patient's care. Wei Hyman 10/21/23 1835:Past Medical History - AdultHome MedicationsDiscontinued Reported MedicationsTIRZEPATIDE [...] .STK-MED ONE 10/21 180 DC 10/21 IV 1833 Patient Discharge Departure [...] 10/21 1700 O2 Delivery Room air 10/21 170 Temp 37.2 10/21 170 Pulse 103 10/21 1700 Resp 17 10/21 [...] care. at 0027 at 0813 RPT #: [id number] OF REPORTEDEmergency department ubvwms9592-41-89N61:54:00L.CKQW82990761-8 246AVAvailable for patient lwqcSJAIEWZTDNFDJX0176-42-32P49:28:15 [facility] 2023-09-23 19:46:00 [id number]+R6xu J ul+7ForkeLgxohUS1kRq+WUb3MAwC74n9912477-4 :46:530721-6555 [facility] [address] [place] [address] PATIENT NAME: MARIA DEL CARMEN RUIZ ADMIT DATE: 09/23/23ACCOUNT NO: [id number] ROOM NO: AGE: 38 REPORT TYPE: OPERATIVE [...] pelvic cavity, cystoscopy. SURGEON: Ashley Rodriguez MD FILLER IN: Joe Pettit. ANESTHESIA: General endotracheal. FINDINGS: Anterior [...] grasped with single tooth tenaculum, dilated to 16-Chadian and 3.5 cm cup uterine manipulator was [...] was performed with a 30-degree lens, a 17-Chadian sheath and normal saline. Excellent jets of urine from both ureteral orifices. No evidence of any trauma to the bladder. Bladder was then partially drained and the patient was taken from anesthesia and taken to PACU in stable condition. She had with around and sister, debriefed about her procedure. Dictated By: Ashley Rodriguez MD Date Dictated: 09/23/2023 19:46:56Date Transcribed: 09/23/2023 22:13:34DUNIA/EMELIA/DALIA/Waldemar #: [id number] ID: [id number] by Ashley Rodriguez MD On 10/21/2023 05:24:23 PM at 0524 PATIENT NAME: MARIA DEL CARMEN RUIZ cnywha7262-02-00H80:13:00L.AYO70316657-13 01AVAvailable for patient ritaFAOQZLDVKJKOWF3897-82-03M49:25:02 [facility] 2023-09-23 18:56:00 [id number]+JSlPEHOmO3qvMcu + OGYmYcdZko1Dqi0bJCnbLIm09C/tmg8RQIB3017-3 8:56:00 [facility] HospitalBrief Op NoteREPORT#:[id number] REPORT STATUS: SignedREPORT INITIALIZATION DATE:09/23/23 TIME:1855 PATIENT: MARIA DEL CARMEN RUIZ UNIT #: [id number]#: [id number] ROOM/BED:: 85 AGE: 37 SEX: F ATTEND: [...] Needle count: correct at 1914 RPT #: [id number] OF REPORT OPOperative xyyofj7099-46-35C02:56:00L.UFEU34247486-1 199AVAvailable for patient ztblKXWHMXTXTCIPTB9151-08-40N46:14:52 HCAPM
[2023-12-11] MEDS ORDERED: ONDANSETRON 4 MG/2 ML VIAL ONE (16:50)
[2023-12-11] MEDS ORDERED: MORPHINE 4 MG/ML SYR ONE (16:50)
[2023-12-11] MEDS ORDERED: NA CHLORIDE 0.9% 2,000 ML ONE (16:51)
[2023-12-11 17:38] LABS: Absolute Eosinophils 0.1 K/uL (0-0.5); Absolute Lymphocytes (CBC) 2.2 K/uL (0.7-4.9); Absolute Monocytes 0.6 K/uL (0.1-1.3); Absolute Neutrophil 3.2 K/uL (1.8-8.0); Basophils % 0.4 % (0-1.3); Eosinophils % 1.1 % (0-4.4); Hemoglobin 12.6 g/dL (12.0-15.0); Lymphocytes % 36.2 % (15.3-44.8); MCH 30.2 pg (27.0-35.0); MCHC 34.1 g/dL (32.0-36.0); MCV 88.5 fL (80-100); MPV 8.1 fL (7.6-11.3); Monocytes % 9.5 % (3.3-12.3); Neutrophils % 52.8 % (41.7-73.7); Platelets 356 thou/uL (152-406); RBC Red Blood Cell Count 4.18 M/uL (3.86-4.86); Red Cell Distribution Width 13.7 % (12.1-15.2)
[2023-12-11 17:41] LABS: PT Prothrombin Time 12.8 SECONDS (9.5-12.5); PTT, Activated Partial Thromb 28.7 SECONDS (24.3-36.9); Protime INR 1.17
[2023-12-11 17:51] LABS: Albumin 3.5 g/dL (3.4-5.0); Albumin/Globulin Ratio 1.2 (1.1-1.8); Anion Gap 8.4 mEq/L (5.0-15.0); Bilirubin Total 0.3 mg/dL (0.2-1.0); Potassium 3.4 mEq/L (3.5-5.1); Protein, Total 6.5 g/dL (6.4-8.2)
[2023-12-11] MEDS ORDERED: VANCOMYCIN 1 GM/VIAL ONE (19:38)
[2023-12-11] MEDS ORDERED: VANCOMYCIN 500 MG/VIAL ONE (19:38)
[2023-12-11] MEDS ORDERED: NA CHLORIDE 0.9% 250 ML ONE (19:39)
--- NOTE | 2023-12-11 20:32 | RAD REPORT ---
EXAM DESCRIPTION: CT - Abdomen Pelvis W Contrast - 12/11/2023 7:51 pm CLINICAL HISTORY: ABD PAIN COMPARISON: Abdomen Pelvis W Contrast dated 11/21/2023; Abdomen Pelvis W Contrast dated 10/07/2023 ; Abdomen Pelvis W Contrast dated 08/26/2022; Abdomen Pelvis W Contrast dated 07/08/2017 TECHNIQUE: Thin cut axial CT imaging of the abdomen and pelvis was performed following intravenous a dministration of 100 mL Isovue 300. Multiplanar reformats were generated and reviewed. All CT scans are performed using dose optimization technique as appropriate and may include automated exposure control or mA/KV adjustment according to patient size. FINDINGS: No suspicious findings in the lung bases. The liver, spleen, adrenal glands, and pancreas show no suspicious findings. Gallbladder and biliary tree are also without suspicious finding. Symmetric renal function is seen with no hydronephrosis or suspicious renal mass. No dilated bowel loops or bowel wall thickening. Nonspecific fluid opacification of nondistended smal l bowel throughout the abdomen. Sequelae of cholecystectomy, hysterectomy, and ventral hernia mesh re pair. No free air, free fluid, abnormal fluid collections, or inflammatory stranding. No hernia, mass or bulky lymphadenopathy. The urinary bladder is decompressed limiting evaluation. No suspicious bony findings. IMPRESSION: Fluid opacification of nondistended small bowel, a nonspecific finding which may relate to enteritis or diarrheal state. No other acute intra-abdominal process.
--- NOTE | 2023-12-11 20:38 | ER ---
Nurse's Notes [facility] Name: Maria Del Carmen Stokes Age: 38 yrs Sex: Female : 1985 Arrival Date: 12/11/2023 Time: 16:01 Bed 13 Private MD: Diagnosis: Lower abdominal pain, unspecified Presentation: 12/10 16:06 Chief complaint: Patient states: "I've had a fever, nausea, diarrhea, and feeling like mb9 crap since yesterday. I'm currently getting IV antibiotics through my PICC everyday for a infection from my hysterectomy". Coronavirus screen: Vaccine status: Patient reports receiving the 2nd dose of the covid vaccine. Ebola Screen: No symptoms or risks identified at this time. Initial Sepsis Screen: Does the patient meet any 2 criteria? No. Patient's initial sepsis screen is negative. Does the patient have a suspected source of infection? No. Patient's initial sepsis screen is negative. Risk Assessment: Do you want to hurt yourself or someone else? Patient reports no desire to harm self or others. Onset of symptoms was December 11, 2023. 16:06 Method Of Arrival: Ambulatory mb9 16:06 Acuity: WILLIS 3 mb9 Triage Assessment: 16:09 General: Appears uncomfortable, Behavior is anxious, crying. Pain: Denies pain. EENT: mb9 No signs and/or symptoms were reported regarding the EENT system. Neuro: Squires Agitation-Sedation Scale (RASS): 0 - Alert and Calm Level of Consciousness is awake, alert, obeys commands, Oriented to person, place, time, situation, Appropriate for age. Cardiovascular: Patient's skin is warm and dry. Respiratory: Airway is patent Respiratory effort is even, unlabored, Respiratory pattern is regular, symmetrical. GI: Abdomen is flat, non-distended, Reports diarrhea, nausea. : No signs and/or symptoms were reported regarding the genitourinary system. Derm: Skin is pink, warm \\T\\ dry. Musculoskeletal: Range of motion: intact in all extremities. FLOAT TENDER: 20:25 LMP N/A - Hysterectomy, Not rv Historical: - Allergies: 16:08 Codeine; mb9 16:08 Levaquin; mb9 16:08 PENICILLINS; mb9 16:08 Tramadol HCl; mb9 - PMHx: 16:08 ADD/ADHD; mb9 - PSHx: 16:08 Cholecystectomy; hernia; Total abdominal hysterectomy; mb9 - Immunization history:: Adult Immunizations up to date. - Infectious Disease History:: Denies. - Social history:: Smoking status: Patient denies any tobacco usage or history of. Screenin:00 [facility] ED Fall Risk Assessment (Adult) History of falling in the last 3 months, rv including since admission No falls in past 3 months (0 pts) Score/Fall Risk Level 0 - 2 = Low Risk Oriented to surroundings, Maintained a safe environment, Educated pt \\T\\ family on fall prevention, incl call for assistance when getting out of bed, Assessed \\T\\ reinforced patient's understanding of fall precautions. Abuse screen: Denies threats or abuse. Denies injuries from another. Nutritional screening: No deficits noted. Tuberculosis screening: No symptoms or risk factors identified. Assessment: 19:00 General: Appears comfortable, Behavior is calm, cooperative. rv 19:00 Pain: Complains of pain in abdomen. Neuro: Level of Consciousness is awake, alert, rv obeys commands, Oriented to person, place, time, situation. Cardiovascular: Capillary refill < 3 seconds Patient's skin is warm and dry. Respiratory: Airway is patent Respiratory effort is even, unlabored. GI: Abdomen is flat, non-distended. Derm: Skin is intact. Vital Signs: 16:06 BP 159 / 109; Pulse 108; Resp 18; Temp 98.6(O); Pulse Ox 100% on R/A; Weight 58.97 kg; mb9 Height 5 ft. 2 in. ; 20:24 BP 149 / 95; Pulse 84; Resp 17; Pulse Ox 100% on R/A; rv 22:41 BP 147 / 95; Pulse 81; Resp 18; Temp 98; Pulse Ox 100% on R/A; rv 16:06 Body Mass Index 23.78 (58.97 kg, 157.48 cm) mb9 Zhang Coma Score: 20:24 Eye Response: spontaneous(4). Motor Response: obeys commands(6). Verbal Response: rv oriented(5). Total: 15. ED Course: 16:03 Patient arrived in ED. mg5 16:07 Tiff Mesa FNP-C is [facility]. kris 16:07 Blu Stokes MD is Attending Physician. kb 16:08 Triage completed. mb9 16:08 Arm band placed on. mb9 16:21 Topher Gant, RN is Primary Nurse. bp 17:23 Blood Culture Adult (2) Sent. bp 17:23 CBC with Diff Sent. bp 17:23 CMP Sent. bp 17:23 Lactate w/ 2H reflex if indic. Sent. bp 17:23 Protime (+inr) Sent. bp 17:23 Ptt, Activated Sent. bp 19:00 Patient has correct armband on for positive identification. Client placed on continuous rv cardiac and pulse oximetry monitoring. NIBP monitoring applied. 19:00 No provider procedures requiring assistance completed. Accessed PICC line. Clean \\T\\ dry. rv Dressing intact. Good blood return. Flushes easily. 19:51 CT Abd/Pelvis - IV Contrast Only In Process Unspecified. EDMS 20:37 Chaka Pack MD is Hospitalizing Provider. kb 22:41 Patient admitted, IV remains in place. rv Administered Medications: 17:18 Drug: NS 0.9% IV (30 ml/kg) 30 ml/kg IV at bolus once; Sepsis Protocol Route: IV; Rate: bp bolus; Site: PICC; 22:42 Follow up: IV Status: Completed infusion; IV Intake: 1800ml rv 17:23 Drug: morphine IVP or IV 4 mg IVP once over 4 mins Route: IVP; Infused Over: 4 mins; bp Site: PICC; 20:25 Follow up: Response: No adverse reaction; Marked relief of symptoms rv 17:24 Drug: Ondansetron IVP 4 mg IVP once; over 2 minutes Route: IVP; Site: PICC; bp 20:25 Follow up: Response: No adverse reaction; Marked relief of symptoms rv 20:19 Drug: vancoMYCIN IVPB 1.25 grams IVPB once over 2 hrs Route: IVPB; Infused Over: 2 hrs; rv Site: PICC; 22:41 Follow up: Response: No adverse reaction; IV Status: Completed infusion; IV Intake: rv 250ml Medication: 19:00 VIS not applicable for this client. rv Intake: 22:41 IV: 250ml; Total: 250ml. rv 22:42 IV: 1800ml; Total: 2050ml. rv Outcome: 20:38 Decision to Hospitalize by Provider. kb 22:41 Admitted to ER Hold. Please see [facility] for further documentation. rv 22:41 Condition: good 22:41 Instructed on the need for admit, 12/11 11:23 Patient left the ED. bp Signatures: Dispatcher [employer] Tiff Bartlett, EDINSON BILLSP-Topher Leggett, RN RN Kenton Mills RN RN robles Wilcox, Jory Hickey RN RN mb9 Love Dang mg5 Corrections: (The following items were deleted from the chart) 12/10 16:09 16:06 Pulse 108bpm; Resp 18bpm; Pulse Ox 100%; 58.97 kg; Height 5 ft. 2 in.; BMI: 23.7; mb9 mb9 16: 16:08 Home Meds: Mounjaro subcutaneous every week; mb9 mb9 16:11 16:06 BP 159 / 109; Pulse 108bpm; Resp 18bpm; Pulse Ox 100%; 58.97 kg; Height 5 ft. 2 mb9 in.; BMI: 23.7; mb9
--- NOTE | 2023-12-11 20:38 | EDPHYS ---
Physician Documentation [facility] Name: Maria Del Carmen Stokes Age: 38 yrs Sex: Female : 1985 Arrival Date: 12/11/2023 Time: 16:01 Bed 13 Private MD: Blu Layne HPI: 12/10 21:11 This 38 yrs old Female presents to ER via Ambulatory with complaints of Fever, Nausea. kb 21:11 Pt is a 38 year old female who presents for nausea, fever and abd pain that started kb yesterday. States she has been hospitalized 5 times since a hysterectomy due to infection. States she was sent home about a week ago on vancomycin and flagyl that she has been taking at home. States the pain she is having now is the same pain she normally has when the infection is there. . 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 - Infectious Disease History:: Denies. - Social history:: Smoking status: Patient denies any tobacco usage or history of. ROS: 21:11 Constitutional: As per HPI kb Exam: 21:11 Constitutional: This is a well developed, well nourished patient who is awake, alert, kb and in no acute distress. Head/Face: Normocephalic, atraumatic. ENT: Moist Mucous membranes Cardiovascular: Regular rate Respiratory: Respirations even and unlabored. No increased work of breathing. Talking in full sentences Skin: Warm, dry with normal turgor. Normal color. MS/ Extremity: Pulses equal, no cyanosis. Neurovascular intact. Full, normal range of motion. Neuro: Awake and alert, GCS 15, oriented to person, place, time, and situation. Moves all extremities. Normal gait. 21:11 Abdomen/GI: Inspection: abdomen appears normal, Bowel sounds: normal, Palpation: soft, in all quadrants, moderate abdominal tenderness, in the right lower quadrant and left lower quadrant, Vital Signs: 16:06 BP 159 / 109; Pulse 108; Resp 18; Temp 98.6(O); Pulse Ox 100% on R/A; Weight 58.97 kg; mb9 Height 5 ft. 2 in. ; 20:24 BP 149 / 95; Pulse 84; Resp 17; Pulse Ox 100% on R/A; rv 22:41 BP 147 / 95; Pulse 81; Resp 18; Temp 98; Pulse Ox 100% on R/A; rv 16:06 Body Mass Index 23.78 (58.97 kg, 157.48 cm) mb9 Zhang Coma Score: 20:24 Eye Response: spontaneous(4). Motor Response: obeys commands(6). Verbal Response: rv oriented(5). Total: 15. MDM: 16:07 Patient medically screened. kb 17:39 Data reviewed: vital signs, nurses notes. Consideration of Admission/Observation kb Patient was admitted/placed on observation. Escalation of care including admission/observation considered. Management of patient was discussed with the following: Meal Cook: Discussed with Dr Rodriguez. She evaluated pt as well and recommends admission with consult to Dr Ocampo. Dr Rodriguez discussed case with Dr Ocampo. 21:09 Differential diagnosis: abdominal infection, uti, c.diff. Management of patient was kb discussed with the following: Hospitalist: Dr Pack accepts pt for admission. Counseling: I had a detailed discussion with the patient and/or guardian regarding the historical points, exam findings, and any diagnostic results supporting the discharge/admit diagnosis, lab results, radiology results, the need for further work-up and treatment in the hospital. 12/10 16:13 Order name: Blood Culture Adult (2) 12/10 16:13 Order name: CBC with Diff; Complete Time: 17:40 kb 12/10 16:13 Order name: CMP; Complete Time: 17:53 kb 12/10 16:13 Order name: Lactate w/ 2H reflex if indic.; Complete Time: 17:57 kb 12/10 16:13 Order name: Protime (+inr); Complete Time: 17:42 kb 12/10 16:13 Order name: Ptt, Activated; Complete Time: 17:42 kb 12/10 16:13 Order name: Urinalysis w/ reflexes 12/10 16:13 Order name: C.difficile 12/10 16:13 Order name: Stool Culture kb 12/10 16:13 Order name: Vancomycin,Trough; Complete Time: 17:53 kb 12/10 21:14 Order name: Urinalysis w/ reflexes EDMS 12/10 21:14 Order name: CBC with Automated Diff EDMS 12/10 21:14 Order name: CBC with Automated Diff EDMS 12/10 21:14 Order name: Comprehensive Metabolic Panel EDMS 12/10 21:14 Order name: Comprehensive Metabolic Panel EDMS 12/10 21:16 Order name: Vancomycin Level Trough EDMS 12/10 18:45 Order name: CT Abd/Pelvis - IV Contrast Only; Complete Time: 20:33 kb 12/10 21:14 Order name: CONS Physician Consult EDMS 12/10 16:13 Order name: Accucheck; Complete Time: 17:23 kb 12/10 16:13 Order name: Cardiac monitoring; Complete Time: 17:23 kb 12/10 16:13 Order name: EKG - Nurse/Tech; Complete Time: 18:57 kb 12/10 16:13 Order name: IV Saline Lock - Large Bore; Complete Time: 17:23 kb 12/10 16:13 Order name: Labs collected and sent; Complete Time: 17:23 kb 12/10 16:13 Order name: O2 Per Protocol; Complete Time: 17:23 kb 12/10 16:13 Order name: O2 Sat Monitoring; Complete Time: 17:23 kb 12/10 16:13 Order name: Vital Signs; Complete Time: 17:23 kb Administered Medications: 17:18 Drug: NS 0.9% IV (30 ml/kg) 30 ml/kg IV at bolus once; Sepsis Protocol Route: IV; Rate: bp bolus; Site: PICC; 22:42 Follow up: IV Status: Completed infusion; IV Intake: 1800ml rv 17:23 Drug: morphine IVP or IV 4 mg IVP once over 4 mins Route: IVP; Infused Over: 4 mins; bp Site: PICC; 20:25 Follow up: Response: No adverse reaction; Marked relief of symptoms rv 17:24 Drug: Ondansetron IVP 4 mg IVP once; over 2 minutes Route: IVP; Site: PICC; bp 20:25 Follow up: Response: No adverse reaction; Marked relief of symptoms rv 20:19 Drug: vancoMYCIN IVPB 1.25 grams IVPB once over 2 hrs Route: IVPB; Infused Over: 2 hrs; rv Site: PICC; 22:41 Follow up: Response: No adverse reaction; IV Status: Completed infusion; IV Intake: rv 250ml Disposition Summary: 12/11/23 20:38 Hospitalization Ordered Notes: Hospitalization Status: Inpatient Admission kb Provider: Chaka Pack Condition: Stable kb Problem: new kb Symptoms: are unchanged kb Bed/Room Type: Standard kb Location: Telemetry/MedSurg (Inpatient)(12/12/23 10:11) eb Room Assignment: [facility](12/12/23 10:11) eb Diagnosis - Lower abdominal pain, unspecified kb Forms: - Medication Reconciliation Form kb - SBAR form kb - Leadership Thank You Letter kb Signatures: Dispatcher [employer] EDTiff Balbuena FNP-C CHELSY-Topher Leggett, RN RN bp Isabel Stuart Ronaldo, RN RN rv Jory Wilcox RN RN [email or web address] Beth Gilbert rv1 Corrections: (The following items were deleted from the chart) 16:09 16:08 Home Meds: Mounjaro subcutaneous every week; mb9 mb9 16:14 16:14 BLOOD CULTURE*+BA.LAB.BRZ ordered. EDMS EDMS 16:14 16:14 CBC+H.LAB.BRZ ordered. EDMS EDMS 16:14 16:14 COMPREHENSIVE METABOLIC PANEL+C.LAB.BRZ ordered. EDMS EDMS 16:14 16:14 LACTATE+C.LAB.BRZ ordered. EDMS EDMS 16:14 16:14 PROTIME (+INR)+COAG.LAB.BRZ ordered. EDMS EDMS 16:14 16:14 PTT, ACTIVATED+COAG.LAB.BRZ ordered. EDMS EDMS 16:14 16:14 Urinalysis+U.LAB.BRZ ordered. EDMS EDMS 16:14 16:14 C.difficile [facility]DH Ag \T\ Toxin AB+LAB.BRZ ordered. EDMS EDMS 16:14 16:14 Stool Culture+BA.LAB.BRZ ordered. EDMS EDMS 16:14 16:14 VANCOMYCIN,TROUGH+C.LAB.BRZ ordered. EDMS EDMS 21:49 20:38 Telemetry/MedSurg (Inpatient) kb rv1 21:49 20:38 kb rv1 12/11 10:12/10 21:49 [facility] ER [facility] rv1 eb 12/11 10:12/10 21:49 ERHOLD- rv1 eb
--- NOTE | 2023-12-11 21:08 | P.HP ---
Certification for Inpatient Patient admitted to: Inpatient With expected LOS: >2 Midnights Patient will require the following post-hospital care: Home Health Services Practitioner: I am a practitioner with admitting privileges, knowledge of patient current condition, hospital course, and medical plan of care. Services: Services provided to patient in accordance with Admission requirements found in Title 42 Section 412.3 of the Code of Federal Regulations Patient History Date of Service: 12/11/23 Reason for admission: Abdominal Pain History of Present Illness: 38-year-old female with past medical history of partial hysterectomy on September 23, 2023 was treated with antibiotics and has been admitted previously with vaginal stump infection and was treated with IV antibiotic at home with the PICC line because of recurrence of pelvic abscess/phlegmon came back to ER with abdominal pain and discomfort which has been going on for the last 2 days and has been admitted for further management. ER consulted CENTRAL OFFICE SUPERVISOR Dr. Rodriguez who saw the patient and consulted ID as well. Patient complains of subjective fever Denies any chest pain or shortness of breath Patient also complains of diarrhea Allergies raspberry Allergy (Unknown, Verified 11/21/23 12:16) Hives codeine Allergy (Verified 10/08/23 03:07) Itching levofloxacin [From Levaquin] Allergy (Verified 09/24/23 05:27) Anaphylaxis Penicillins Allergy (Verified 09/24/23 05:27) Itching tramadol Allergy (Verified 09/24/23 05:27) Itching Home medications list reviewed: Yes Home Medications: Hydrocodone 10/APAP 325 [[place] 10/325] 1 tab PO Q6H PRN #30 tab 11/22/23 Mupirocin Calcium [Bactroban Nasal*] 1 appl NOEMI BID #1 tube 11/22/23 metroNIDAZOLE [Flagyl] 500 mg PO Q8H #42 tab 11/22/23 Ondansetron [Zofran] 4 mg PO Q6H PRN 20 Days #30 tab 11/26/23 - Past Medical/Surgical History Diabetic: No Past Medical History: Reviewed- Non-Contributory -: prediabetis -: restless legs -: Pelvic infection Past Surgical History: Reviewed- Non-Contributory -: cholecystectomy -: hysterectomy 09/23/2023 -: hernia repair - Family History Family History: Reviewed- Non-Contributory - Family History Father -: Heart disease, Lung disease, Stroke Mother -: Lung disease, Cancer, Other (see notes) Notes: lung CA - Social History Smoking Status: Current some day smoker Alcohol use: Yes CD- Drugs: No Caffeine use: Yes Review of Systems 10-point ROS is otherwise unremarkable Physical Examination - Vital Signs Temperature: 98.6 F Blood Pressure: 136/72 (`) Pulse: 76 Respirations: 18 Pulse Ox (%): 98 - Physical Exam General: Alert, In no apparent distress, Oriented x3, Cooperative HEENT: Atraumatic, Normocephalic Neck: Supple, 2+ carotid pulse no bruit, JVD not distended Respiratory: Clear to auscultation bilaterally, Normal air movement Cardiovascular: No edema, Regular rate/rhythm, Normal S1 S2 Capillary refill: <2 Seconds Gastrointestinal: W/out hepatosplenomegaly, Tenderness Musculoskeletal: No clubbing, No swelling Integumentary: No rashes, No breakdown, No tenderness/swelling Neurological: Normal speech, Normal strength at 5/5 x4 extr, Normal reflexes 2+, Normal affect Lymphatics: No axilla or inguinal lymphadenopathy - Studies Laboratory Data (last 24 hrs) 12/11/23 12/11/23 12/11/23 17:20 17:20 17:20 WBC 6.10 Hgb 12.6 Hct 37.0 Plt Count 356 PT 12.8 H INR 1.17 APTT 28.7 Sodium 139 Potassium 3.4 L BUN 10 Creatinine 0.68 Glucose 82 Total Bilirubin 0.3 AST 29 ALT 50 Alkaline Phosphatase 60 Imagings Data: FINDINGS: No suspicious findings in the lung bases. The liver, spleen, adrenal glands, and pancreas show no suspicious findings. Gallbladder and biliary tree are also without suspicious finding. Symmetric renal function is seen with no hydronephrosis or suspicious renal mass. No dilated bowel loops or bowel wall thickening. Nonspecific fluid opacification of nondistended small bowel throughout the abdomen. Sequelae of cholecystectomy, hysterectomy, and ventral hernia mesh repair. No free air, free fluid, abnormal fluid collections, or inflammatory stranding. No hernia, mass or bulky lymphadenopathy. The urinary bladder is decompressed limiting evaluation. No suspicious bony findings. IMPRESSION: Fluid opacification of nondistended small bowel, a nonspecific finding which may relate to enteritis or diarrheal state. No other acute intra-abdominal process. Assessment and Plan - Problems (Diagnosis) (1) Enteritis Current Visit: Yes Status: Acute Plan: CT findings noted consistent with enteritis Started on Zosyn Patient is already on Flagyl C. difficile pending Electrolytes monitor and replace accordingly IV hydration (2) Pelvic abscess in female Current Visit: No Status: Chronic Plan: Continue IV antibiotic Patient is on vancomycin and Flagyl at home with a PICC line Will continue the same Added on Zosyn ID consulted Appreciate help from CENTRAL OFFICE SUPERVISOR Will streamline antibiotic Will obtain cultures CT findings noted No acute changes found except for enteritis Awaiting further clinical improvement and recommendations (3) Hypokalemia Current Visit: Yes Status: Acute Plan: Potassium replacement Electrolytes monitor and replace accordingly Discharge Plan: Home Plan to discharge in: 48 Hours - Advance Directives Does patient have a Living Will: No Does patient have a Durable POA for Healthcare: No - Code Status/Comfort Care Code Status: Full Code Time Spent Managing Pts Care (In Minutes): 58
[2023-12-11] MEDS ORDERED: VANCOMYCIN 1 GM in NA CHLORIDE 0.9% 250 ML IVPB SCH (21:13)
[2023-12-11] MEDS: METRONIDAZOLE 500mg IVPB 500 MG/100 ML BAG IV SCH (22:00)
[2023-12-11] MEDS: NA CHLORIDE 0.9% 1,000 ML IV SCH (22:00)
[2023-12-11] MEDS ORDERED: METRONIDAZOLE 500mg IVPB 500 MG/100 ML BAG IV ONE (22:26)
[2023-12-11] MEDS ORDERED: NA CHLORIDE 0.9% 1,000 ML ONE (22:27)
[2023-12-11 23:13] VITALS: BMI 22.6
[2023-12-12] MEDS ORDERED: ONDANSETRON 4 MG/2 ML VIAL ONE ×2 (00:42→07:23)
[2023-12-12] MEDS: ONDANSETRON 4 MG/2 ML VIAL IV PRN (01:00)
[2023-12-12] MEDS ORDERED: PIPER TAZO 3.375 GM in NA CHLORIDE 0.9% 100 ML IV SCH (01:00)
[2023-12-12] MEDS ORDERED: ACETAMINOPHEN 500 MG TAB ONE (03:55)
[2023-12-12] MEDS: ACETAMINOPHEN 500 MG TAB PO PRN (03:57)
[2023-12-12 04:08] LABS: Absolute Eosinophils 0.2 K/uL (0-0.5); Absolute Lymphocytes (CBC) 2.3 K/uL (0.7-4.9); Absolute Monocytes 0.7 K/uL (0.1-1.3); Absolute Neutrophil 3.6 K/uL (1.8-8.0); Basophils % 0.3 % (0-1.3); Eosinophils % 2.3 % (0-4.4); Hematocrit 35.1 % (36.0-45.0); Hemoglobin 11.7 g/dL (12.0-15.0); Lymphocytes % 33.9 % (15.3-44.8); MCH 29.8 pg (27.0-35.0); MCHC 33.3 g/dL (32.0-36.0); MCV 89.5 fL (80-100); MPV 7.9 fL (7.6-11.3); Monocytes % 10.2 % (3.3-12.3); Neutrophils % 53.3 % (41.7-73.7); Platelets 350 thou/uL (152-406); RBC Red Blood Cell Count 3.92 M/uL (3.86-4.86); Red Cell Distribution Width 13.3 % (12.1-15.2)
[2023-12-12 04:32] LABS: Albumin 3.1 g/dL (3.4-5.0); Albumin/Globulin Ratio 1.1 (1.1-1.8); Anion Gap 4.5 mEq/L (5.0-15.0); Bilirubin Total 0.4 mg/dL (0.2-1.0); Globulin 2.7 g/dL (2.3-3.5); Potassium 3.5 mEq/L (3.5-5.1); Protein, Total 5.8 g/dL (6.4-8.2)
[2023-12-12] MEDS ORDERED: METRONIDAZOLE 500mg IVPB 500 MG/100 ML BAG IV ONE ×2 (04:41→07:24)
--- NOTE | 2023-12-12 05:12 | CON ---
Date of Consultation: 12/11/2023 Consult Diagnosis: Abdominal pain, fever, diarrhea. The patient is on vancomycin. History Of Present Illness: The patient is a postop patient, 38 years old, 8 weeks from laparoscopic robotic hysterectomy, who has been known to us for postoperative complications of pain and possible vaginal cuff cellulitis, and retroperitoneal possible inflammation and infection, and is on long-term vancomycin, also on Flagyl with a PICC line. She was seen 2 weeks ago in the office [facility], and she has remained on IV antibiotics under the care of Infectious Diseases at home. Home Health Service is involved with delivering the medication for her. She has been doing really w ell, less fatigue. No pain, being currently well controlled as needed for any discomfort with NSAIDs . She had onset of fatigue and decreased energy 3 days ago on Saturday. This has slowly progressed to mi ld abdominal pain, loose bowel movements, and then some throat pain. She had a fever of 101 yesterda y and had increasing abdominal pain, and so came into the ER because of the fear of her past infectio n symptoms returning and wondered whether the problem has recurred. She was seen in the ER. After the evaluation from the ER PA, I was notified and I went in to see the patient. Complaining of abdominal pain, some mild diarrhea, nausea mostly associated with the administration o f vancomycin. She reported that her PICC line has had some hurdles that were being solved by the [facility]. Vancomycin trough was not drawn as was supposed to be Saturday, but everything else h as been going well until return of events 3 days ago. No other medication was called in b y office after slight delay due to turnaround for phone calls and answering done. However, she was c alled in nausea medication, not able to tolerate them or any significant p.o. intake, although there was no vomiting. Denies any lower urinary tract symptoms. No redness or pain in the site of the PIC C line. No lower extremity swelling. Mostly doing well otherwise. All surgical and medical history unchanged. Medications: She is on vancomycin b.i.d. and Flagyl b.i.d. as well orally. Physical Examination: Vital Signs: In the ER at the time I had seen her, vitals were not taken, but by report, they were a ll stable. At this time, afebrile. General: She was not in any acute distress, but very emotional about being sick and coming back to [facility], but otherwise coherent, awake, alert, and oriented. Abdomen: Soft. Mildly tender. No distention. No rebound. All scars completely healed. Extremities: Unremarkable. Laboratory Data: CT scan and blood work were ordered, which later were reported as being negative fo r any abscess and no white cell count that was elevated, which was not the case in the past when ther e were pelvic infection symptoms and . Assessment And Plan: 1.Abdominal pain, suspicious for colitis from long-term antibiotics. Clostridium difficile stool or dered. ID consult. Continue on vancomycin and Flagyl. If Clostridium difficile is positive, then we would appropriately treat it under ID care and manage [facility] IV [facility] appropriately according to their recommendations as well. 1.Postoperative pelvic infection. This seems to be under control with the antibiotics. Continue kalyn. 2.Throat pain, likely thrush or esophagitis. Oropharyngeal candidiasis. Diflucan once a week 150 m g for vaginal candidiasis prevention. May be as patient follows, this is confirmed. 3.ID consult and admission to the medical service. We will follow her closely and will continue com munication with all the services involved in taking care of this patient. No specific etiology determined. However, tentative diagnosis of colitis or small bowel inflammation. JERRI/ROYA Voice ID: [id number] Report ID: [id number]
[2023-12-12] MEDS ORDERED: MORPHINE 2 MG/ML SYR ONE (07:24)
[2023-12-12] MEDS: MORPHINE 2 MG/ML SYR IV PRN (07:30)
[2023-12-12] MEDS: INFLUENZA VACCINE (for 6+ mo) 0.5 ML DOSE IMVAC ONE (08:00)
--- NOTE | 2023-12-12 08:00 | P.PN ---
Subjective Date of Service: 12/12/23 Chief Complaint: Abdominal Pain vaginal stump infection and was treated with IV antibiotic at home with the PICC line because of recurrence of pelvic abscess/phlegmon came back to ER with abdominal pain and discomfort which has been going on for the last 2 days Pain controlled with as needed analgesia Physical Exam General: Alert, In no apparent distress, Oriented x3, Cooperative HEENT: Atraumatic, Normocephalic Neck: Supple, 2+ carotid pulse no bruit, JVD not distended Respiratory: Clear to auscultation bilaterally, Normal air movement Cardiovascular: No edema, Regular rate/rhythm, Normal S1 S2 Capillary refill: <2 Seconds Gastrointestinal: W/out hepatosplenomegaly, Tenderness Musculoskeletal: No clubbing, No swelling Integumentary: No rashes, No breakdown, No tenderness/swelling Neurological: Normal speech, Normal strength at 5/5 x4 extr, Normal reflexes 2+, Normal affect Lymphatics: No axilla or inguinal lymphadenopathy Review of Systems Per HPI Physical Examination - Vital Signs Temperature: 98 F Blood Pressure: 124/83 Pulse: 93 Respirations: 16 Pulse Ox (%): 99 - Studies Laboratory Data (last 24 hrs) 12/11/23 12/11/23 12/11/23 17:20 17:20 17:20 WBC 6.10 Hgb 12.6 Hct 37.0 Plt Count 356 PT 12.8 H INR 1.17 APTT 28.7 Sodium 139 Potassium 3.4 L BUN 10 Creatinine 0.68 Glucose 82 Total Bilirubin 0.3 AST 29 ALT 50 Alkaline Phosphatase 60 Assessment And Plan - Plan Assessment and Plan - Problems (Diagnosis) Enteritis Abdominal pain Current Visit: Yes Status: Acute Plan: CT findings noted consistent with enteritis Started on Zosyn Patient is already on Flagyl C. difficile pending Electrolytes monitor and replace accordingly IV hydration (2) Pelvic abscess in female Current Visit: No Status: Chronic Continue IV antibiotic Patient is on vancomycin and Flagyl at home with a PICC line Will continue the same Added on Zosyn ID consulted Appreciate help from BAKE ROOM WORKER Will streamline antibiotic Will obtain cultures CT findings noted No acute changes found except for enteritis Awaiting further clinical improvement and recommendations (3) Hypokalemia Current Visit: Yes Status: Acute Plan: Potassium replacement Electrolytes monitor and replace accordingly Full code DVT Diet Disposition Home Discharge Plan: Home - Code Status/Comfort Care Code Status: Full Code Critical Care: No Time Spent Managing PTS Care (In Minutes): 36
[2023-12-12] MEDS ORDERED: NA CHLORIDE 0.9% 1,000 ML ONE (08:37)
[2023-12-12] MEDS: VANCOMYCIN 1.25 GM in NA CHLORIDE 0.9% 250 ML IVPB SCH (09:00)
[2023-12-12] MEDS: ENOXAPARIN 40 MG/0.4 ML SQ SCH (09:00)
[2023-12-12] MEDS ORDERED: INFLUENZA VACCINE (for 6+ mo) 0.5 ML DOSE IMVAC ONE (09:18)
[2023-12-12] MEDS ORDERED: ENOXAPARIN 40 MG/0.4 ML SQ ONE (09:19)
[2023-12-12 10:50] VITALS: O2SAT 100
--- NOTE | 2023-12-12 11:11 | P.CNS ---
Date of Consult: 12/12/23 Reason for Consult: pelvic infection Chief Complaint: Abdominal Pain History of Present Illness: Pt is a 38yo F who underwent robotic hysterectomy Sep 23 2023 and experienced postop complications/infection. She has been on IV Vancomycin and Flagyl since 11/20/23 which she has been receiving via PICC line at home with home health. She presented to the ED with complaints of abdominal pain, diarrhea and subjective fever. Blood cultures obtained. Patient continued on Vancomycin and Flagyl IV. SALESPERSON HEARING AIDS and Infectious disease were consulted. Allergies raspberry Allergy (Unknown, Verified 11/21/23 12:16) Hives codeine Allergy (Verified 10/08/23 03:07) Itching levofloxacin [From Levaquin] Allergy (Verified 09/24/23 05:27) Anaphylaxis Penicillins Allergy (Verified 09/24/23 05:27) Itching tramadol Allergy (Verified 09/24/23 05:27) Itching Home Medications: Hydrocodone 10/APAP 325 [[place] 10/325] 1 tab PO Q6H PRN #30 tab 11/22/23 Mupirocin Calcium [Bactroban Nasal*] 1 appl NOEMI BID #1 tube 11/22/23 metroNIDAZOLE [Flagyl] 500 mg PO Q8H #42 tab 11/22/23 Ondansetron [Zofran] 4 mg PO Q6H PRN 20 Days #30 tab 11/26/23 - Past Medical/Surgical History Diabetic: No -: prediabetis -: restless legs -: Pelvic infection -: cholecystectomy -: hysterectomy 09/23/2023 -: hernia repair - Family History Father Medical History: Heart disease, Lung disease, Stroke Mother Medical History: Lung disease, Cancer, Other (see notes) Notes: lung CA - Social History Smoking Status: Current every day smoker Alcohol use: Yes CD- Drugs: No Caffeine use: Yes Place of Residence: Home Review of Systems General: Weakness Gastrointestinal: Nausea, Abdominal Pain, Diarrhea Physical Examination Temp Pulse Resp BP Pulse Ox 98 F 93 H 16 124/83 99 12/12/23 08:00 12/12/23 08:00 12/12/23 08:00 12/12/23 08:00 12/12/23 08:00 Laboratory Data - Reviewed Microbiology Data - Reviewed Imagings Data: - Reviewed Conclusions/Impression: Problem List Pelvic Infection Diarrhea / Enteritis Abdominal Pain Postop Infection *allergies: Levofloxacin, Penicillins, Tramadol, Codeine* Recent Pelvic Abscess Hysterectomy, postop complications/infection - pt underwent robotic hysterectomy Sep 23 2023 and experienced postop complications of vaginal cuff cellulitis, retroperitoneal inflammation and infection, and has been on long-term IV antibiotics with Vancomycin and Flagyl. - CT abdomen pelvis 12/10 without evidence of abscess. - Patient was recently admitted to hospital and treated for strep bacteremia secondary to acute cystitis and hysterectomy postop infection. She was started on Vancomycin and Flagyl 11/19 to complete 2-3 weeks of IV antibiotics via PICC line at home with home health. - Currently on Vancomycin and Flagyl IV - Blood cultures 12/10: pending - Urinalysis 12/10: pending Diarrhea / Enteritis - CT abdomen pelvis 12/10: "Fluid opacification of nondistended small bowel, a nonspecific finding which may relate to enteritis or diarrheal state. No other acute intra-abdominal process." - C.diff pending No leukocytosis. Afebrile Recommendations - Diarrhea, on ocean transportation intermediary IV antibiotics: - Follow up with C.diff results - Start on Probiotic - Recent pelvic infection - continue vancomycin and flagyl for now - follow up with culture results. will adjust antibiotics as appropriate - Monitor CBC, BMP and fever trends - Continue supportive care - urinalysis- send for culture if applicable Case discussed with Eliot Lozada
[2023-12-12] MEDS ORDERED: FLUCONAZOLE 100 MG TAB PO ONE (12:18)
[2023-12-12] MEDS: FLUCONAZOLE 100 MG TAB PO SCH (12:52)
[2023-12-12] MEDS: LACTOBACILLUS/ACIDOPHILUS TAB PO SCH (12:53)
[2023-12-12] MEDS: HYDROCODONE/APAP 10/325 TAB PO PRN (12:56)
[2023-12-12] MEDS: SUMATRIPTAN SUCCI 50 MG TAB PO ONE (14:23)
--- NOTE | 2023-12-12 14:37 | RAD REPORT ---
EXAM DESCRIPTION: CT - Head Brain Wo Cont - 12/12/2023 2:32 pm CLINICAL HISTORY: headache Headache, drowsiness COMPARISON: No comparisons TECHNIQUE: All CT scans are performed using dose optimization technique as appropriate and may inclu de automated exposure control or mA/KV adjustment according to patient size. FINDINGS: No intracranial hemorrhage, hydrocephalus or extra-axial fluid collection.No areas of brai n edema or evidence of midline shift. Mucosal thickening and fluid is present in the left maxillary antrum. Paranasal sinuses and mastoids are otherwise clear The calvarium is intact. IMPRESSION: No acute intracranial abnormality.
[2023-12-12 16:17] VITALS: BP 136/94; TEMP 97.4
--- NOTE | 2023-12-13 09:07 | P.DS ---
Admission Date: 12/11/23 Discharge Date: 12/13/23 Disposition: OR HOME/HOME HEALTH CARE Reason for Admission: Abdominal Pain Brief History of Present Illness: Admitted for abdominal pain,, migraine. Is currently being treated vaginal stump infection and was treated with IV antibiotic at home with the PICC line because of recurrence of pelvic abscess/phlegmon came back to ER with abdominal pain and discomfort which has been going on for the last 2 daysPain controlled with as needed analgesia Physical Exam General: Alert, In no apparent distress, Oriented x3, Cooperative HEENT: Atraumatic, Normocephalic Neck: Supple, 2+ carotid pulse no bruit, JVD not distended Respiratory: Clear to auscultation bilaterally, Normal air movement Cardiovascular: No edema, Regular rate/rhythm, Normal S1 S2 Capillary refill: <2 Seconds Gastrointestinal: W/out hepatosplenomegaly, Tenderness Musculoskeletal: No clubbing, No swelling Integumentary: No rashes, No breakdown, No tenderness/swelling Neurological: Normal speech, Normal strength at 5/5 x4 extr, Normal reflexes 2+, Normal affect Lymphatics: No axilla or inguinal lymphadenopathy Hospital Course: 38 year-old female patient presented with abdominal pain, migraine. SHe is on IV antibiotics, treated with as needed analgesics, lactobacillus, hydrocodone 10 for migraine, Imitrex for migraines.Condition improved with as needed analgesics. Patient tolerating diet, stable for discharge to home with follow-up appointment with primary care physician. PROBLEM: Migraine Abdominal pain secondary to enteritis Fungal infection Long-term IV antibiotic for. Vaginal infection Discharge home on Diflucan Follow-up with [facility] after discharge Discharged home on as needed analgesics, instructed not to drive or use heavy equipment on pain medications. Patient verbalized understanding Patient following Dr. Kimball for infectious disease, long-term IV antibiotic Continue home medicines as previously prescribed GOAL: Clear understanding of disease process INSTRUCTIONS: Physician Discharge Instructions: e -Follow-up with PCP in 1 to 2 weeks -Please call Dr. Salazar at [phone] if any questions regarding hospital stay -Please call nursing station at [phone] if any nursing or medication questions -Return to the emergency room if symptoms worsen Diet: ADA, low sodium Activity: Fall precautions Vital Signs/Physical Exam: Temp Pulse Resp BP Pulse Ox 97.4 F 89 16 136/94 H 98 12/12/23 16:00 04/04/24 16:00 12/12/23 16:00 12/12/23 16:00 12/12/23 16:00 Laboratory Data at Discharge: WBC 6.70 thou/uL (4.3-10.9) 12/12/23 03:45 Hgb 11.7 g/dL (12.0-15.0) L 12/12/23 03:45 Hct 35.1 % (36.0-45.0) L 12/12/23 03:45 Plt Count 350 thou/uL (152-406) 12/12/23 03:45 PT 12.8 SECONDS (9.5-12.5) H 12/11/23 17:20 INR 1.17 12/11/23 17:20 APTT 28.7 SECONDS (24.3-36.9) 12/11/23 17:20 Sodium 142 mEq/L (136-145) 12/12/23 03:45 Potassium 3.5 mEq/L (3.5-5.1) 12/12/23 03:45 BUN 5 mg/dL (7-18) L 12/12/23 03:45 Creatinine 0.64 mg/dL (0.55-1.02) 12/12/23 03:45 Glucose 78 mg/dL (74-106) 12/12/23 03:45 Total Bilirubin 0.4 mg/dL (0.2-1.0) 12/12/23 03:45 AST 22 U/L (15-37) 12/12/23 03:45 ALT 44 U/L (13-56) 12/12/23 03:45 Alkaline Phosphatase 53 U/L (45-117) 12/12/23 03:45 Home Medications: Fluconazole [Diflucan] 200 mg PO DAILY #7 tab 12/12/23 Hydrocodone 10/APAP 325 [[place] 10/325] 1 tab PO Q12H PRN #20 tab 12/12/23 L. Acidophilus/L.bulgaricus [Floranex Tablet] 1 each PO DAILY #30 tab 12/12/23 Sumatriptan [Imitrex] 50 mg PO PRN PRN #8 tab 12/12/23 New Medications: Fluconazole [Diflucan] 200 mg PO DAILY #7 tab L. Acidophilus/L.bulgaricus [Floranex Tablet] 1 each PO DAILY #30 tab Sumatriptan [Imitrex] 50 mg PO PRN PRN #8 tab PRN Reason: migraine Hydrocodone 10/APAP 325 [[place] 10/325] 1 tab PO Q12H PRN #20 tab PRN Reason: Pain Physician Discharge Instructions: -DC IV and DC home -Follow-up with PCP in 1 to 2 weeks -Follow-up with Gynecology in 1 to 2 weeks -Please call Dr. Salazar at [phone] if any questions regarding hospital stay -Please call nursing station at [phone] if any nursing or medication questions -Return to the emergency room if symptoms worsen Diet: Regular Activity: Fall precautions Followup: Ashley Rodriguez MD [ACTIVE - CAN ADMIT] - 1-2 Weeks (Call for appointment.) NONE,NONE [Primary Care Provider] - 1-2 Weeks (Call for appointment.) Time spent managing pt's care (in minutes): 55
--- NOTE | 2023-12-13 11:58 | EKG ---
Test Date: 2023-12-11 Test Time: 19:00:51 [employer]: BP MEASUREMENT RESULTS: Intervals: Rate: 81 MI: 122 QRSD: 86 QT: 392 QTc: 455 [place]: P: 75 MI: 122 QRS: 77 T: 70 INTERPRETIVE STATEMENTS: Normal sinus rhythm Normal ECG Compared to ECG 12/03/2023 12:58:28 No significant changes Electronically Signed On 12-13-23 11:54:29 CDT by Dwaine Manzo
== END 2023-12-12 17:55 | disposition home health service (06) ==
LOC: ER 16:01 → INTOOBSV 21:09 → ERHOLD 21:09 → 4TH 12-12 10:13
PROVIDERS: ADMIT Family Medicine; ATTEND Nurse Practitioner Women's Health
DX: N73.9 Female pelvic inflammatory disease, unspecified (principal); K52.9 Noninfective gastroenteritis and colitis, unspecified; E87.6 Hypokalemia; F17.210 Nicotine dependence, cigarettes, uncomplicated; T81.40XA Infection following a procedure, unspecified, initial encounter; Z88.0 Allergy status to penicillin; Z88.5 Allergy status to narcotic agent; Z91.018 Allergy to other foods; Z79.2 Long term (current) use of antibiotics
CPT/HCPCS: 36415; 70450; 74177; 80053; 80202; 83605; 85025; 85610; 85730; 87040; 93005; G0378; J1650; J2270; J2405; J7030; J7050; Q2035; Q9967

== ENCOUNTER 2023-12-13 13:57 | Emergency (ER) | payer BC ==
--- OUTSIDE RECORDS SUMMARY | 2023-12-13 14:01 | XMS REPORT | Continuity of Care Document ---
Author Name Unknown Address [address] [facility] [place] [address] [facility] Address [address] [place] [address] Care Team Providers Care Optical Advisor Name Role Phone PCP, PATIENT DOES NOT HAVE A Primary Care Physic abbi Unavailable GC_GCBZW_Crystala_S Attending Clinician UnavailAshley Henriquez Attending Clinician Unavaila Jennifer Gore Attending Clinician Unavailable JOCELYN TORREZ Attending Clinician Unavailable Jocelyn Torrez MD Attending Clinician [phone] Mack Pack Attending Clinician Unavailable MOY SAVAGE Attending Clinician UnavailMOY Garcia Attending Clinician UnavailGAYLE Su Attending Clinician Unavailable Hinojosa PAC, Gayle S Attending Clinician [phone] Doctor Unassigned, [place] Attending Clinician U navailable GC_GCBZW_Katiffanya_S Admitting Clinician Ashley Jane Admitting Clinician UnavailJennifer Latham Admitting Clinician Unavailable JOCELYN TORREZ Admitting Clinician Unavailable Mack Pack Admitting Clinician Unavailable Payers Payer Name Policy Type Policy Number Effective Date Expirati on Date Source [place] [id number] 2019 00:00:00 [place] [id number] 2008 00:00:00 [facility] [id number] 2022 00:00:00 2023 00:00:00 Problems Condition Name [...] Ovary Problem Active 2022-09 0-10 00:00: 00 [facility] Acute postoperat carina abdominal pain Acute postoperat carina abdominal pain Disease Active 7- 00:00: 00 [facility] Migraines Migraines Disease Active 2 00:00: 00 [facility] Tobacco use disorder Tobacco use disorder Disease Active 10-30 00:00: 00 [facility] Allergies, Adverse Reactions, Alerts Allergy Name Allergy Type Status Severity Reaction(s) Onset Date Inactive Date Treating Clinician Comments Source LEVOFLOX ACIN DRUG INGREDI Active N/V 00:00: 00 [facility] Levoflox acin Propensi ty to adverse reaction s Active Nausea and/or Vomiting 00:00: 00 [facility] Penicill ins DA Active ID RSAH 2- 00:00: 00 [facility] levoflox acin DA Active U THROAT SWELLING 2- 00:00: 00 [facility] Penicill ins DA Active SV HIVES 0 1-12 00:00: 00 [facility] codeine DA Active MO VOMITING 0 1-12 00:00: 00 [facility] acetamin ophen DA Active MO VOMITING 0 1-12 00:00: 00 [facility] tramadol DA Active MO VOMITING 0 1- 00:00: 00 [facility] levoflox acin DA Active MO VOMITING 0 -12 00:00: 00 [facility] PENICILL INS Drug Class Active ITCHING 10-30 00:00: 00 [facility] Penicill ins Propensi ty to adverse reaction s Active Itching 10-30 00:00: 00 [facility] Penicill ins Propensi ty to adverse reaction s Active Itching 10-30 00:00: 00 [facility] No Known Drug Intolera nces DA Active U 6- 00:00: 00 [facility] LICORICE DA Active U 02-06 00:00: 00 [facility] RASPBERR IES DA Active U 02-06 00:00: 00 [facility] No Known Contrast Allergie s DA Active U 02-06 00:00: 00 [facility] No Known Drug Allergie s DA Active U 02-06 00:00: 00 [facility] No Known Other Allergie s DA Active U 02-06 00:00: 00 [facility] Levoflox acin Allergy to substanc e Active Vomiting [facility] PENICILL INS Allergy to substanc e Active [facility] Tramadol Allergy to substanc e Active Nausea [facility] Social History Social Habit Start Date Stop Date Quantity Comments Source Exposure to SARS-CoV-2 (event) Not sure [facility] History of tobacco use Cigarette Smoker [facility] of Social function 2020-06-06 00:00:00 2020-06-06 00:00:00 [facility] Alcohol intake 2020-06-06 00:00:00 2020-06-06 00:00:00 Current drinker of alcohol (finding) [facility] Alcohol Comment 2013-10-30 00:00:00 2013-10-30 00:00:00 occasionally [facility] Cigarettes smoked current (pack per day) - Reported 2013-10-30 00:00:00 2013-10-30 00:00:00 [facility] Cigarette pack-years 2013-10-30 00:00:00 2013-10-30 00:00:00 [facility] Tobacco use and exposure 2013-10-30 00:00:00 2013-10-30 00:00:00 Smokeless tobacco non-user [facility] Sex Assigned At 1985 00:00:00 1985 00:00:00 [facility] Smoking Status Start Date Stop Date Source Former Smoker [facility] Smokes tobacco daily 2013-10-30 00:00:00 [facility] Medications Ordered Medication Name Filled Medication Name Start Date Stop Date Current Medication? Ordering Clinician Indication Dosage Frequency Signature (SIG) Comments Components Source ondansetron (ZOFRAN (PF)) injection 4 mg 11-07 05:15: 00 11-07 05:06 :00 No 4mg 4 mg, Slow IV Push, ONCE, 1 dose, On Adore 11/07/23 at 2315, BILL [facility] FENTanyl PF (SUBLIMAZE (PF)) injection 75 mcg 11-07 05:00: 00 11-07 04:57 :00 No 75ug 75 mcg, Slow IV Push, ONCE, 1 dose, On Adore 11/07/23 at 2300, STAT [facility] NaCl 0.9% (NS) bolus infusion 1,000 mL 11-07 03:45: 00 11-07 04:45 :00 No 1000mL at 999 mL/hr, 1,000 mL, IV Infusion, ONCE, 1 dose, On Adore 11/07/23 at 2145, STAT [facility] morpHINE (4 mg/mL) injection 4 mg 11-07 03:30: 00 11-07 03:27 :00 No 4mg 4 mg, Slow IV Push, ONCE, 1 dose, On Adore 11/07/23 at 2130, STAT [facility] clindamycin in 5 % dextrose (CLEOCIN) 900 [...] br>Restric kathrine use approved by: ED PROVIDER [facility] gentamicin 150 mg in NaCl 0.9% (NS) 11-07 02:45: 00 11-07 03:49 :00 No 150mg 150 mg, IV Piggyback, ONCE, 1 dose, On Adore 11/07/23 at 2045, STAT
Re ason for Anti-Infec tive: Documented Infection< br>Documen kathrine Infection Site: Pelvic
Duration of Therapy: Other (see Comments) [facility] iopamidol (ISOVUE 370-500 mL) injection 100 mL 11-07 02:00: 00 11-07 02:00 :00 No [id number] 100mL 100 mL, Intravenou s, ONCE, 1 dose, On Adore 11/07/23 at 2000, Routine [facility] morpHINE (4 mg/mL) injection 4 mg 11-07 01:45: 00 11-07 01:35 :00 No 4mg 4 mg, Slow IV Push, ONCE, 1 dose, On Adore 11/07/23 at 1945, STAT [facility] NaCl 0.9% (NS) bolus infusion 1,000 mL 11-07 00:15: 00 11-07 02:16 :00 No 1000mL at 999 mL/hr, 1,000 mL, IV Infusion, ONCE, 1 dose, On Adore 11/07/23 at 1815, STAT [facility] FENTanyl PF (SUBLIMAZE (PF)) injection 75 mcg 11-07 00:15: 00 23:52 :00 No 75ug 75 mcg, Slow IV Push, ONCE, 1 dose, On Adore 11/07/23 at 1815, STAT [facility] ondansetron (ZOFRAN (PF)) injection 4 mg 11-07 00:15: 00 23:52 :00 No 4mg 4 mg, Slow IV Push, ONCE, 1 dose, On Adore 11/07/23 at 1815, BILL [facility] ibuprofen 600 mg tablet 2017-09 017 00:00: 00 Yes 600mg Take 1 tablet by mouth every 6 (six) hours as needed for Pain (scale 4-6). [facility] estradiol 0.01% (0.1 mg/gram) vaginal cream INSERT 0.5 GRAM VAGINALLY EVERY DAY AT BEDTIME estradiol 0.01% (0.1 mg/gram) vaginal cream INSERT 0.5 GRAM VAGINALLY EVERY DAY AT BEDTIME No estradiol 0.01% (0.1 mg/gram) vaginal cream INSERT 0.5 GRAM VAGINALLY EVERY DAY AT BEDTIME [facility] Flagyl Flagyl No Flagyl [facility] fluconazole 150 mg tablet Take 1 tablet every week by oral route as directed for 45 days. fluconazole 150 mg tablet Take 1 tablet every week by oral route as directed for 45 days. No 1 Q1W fluconazol e 150 mg tablet Take 1 tablet every week by oral route as directed for 45 days. [facility] ibuprofen 800 mg tablet TAKE ONE (1) TABLET(S) BY MOUTH THREE TIMES A DAY NEEDED FOR PAIN. ibuprofen 800 mg tablet TAKE ONE (1) TABLET(S) BY MOUTH THREE TIMES A DAY NEEDED FOR PAIN. No ibuprofen 800 mg tablet TAKE ONE (1) TABLET(S) BY MOUTH THREE TIMES A DAY NEEDED FOR PAIN. [facility] Mounjaro 7.5 mg/0.5 mL subcutaneou s pen injector ADMINISTER 7.5 MG UNDER THE SKIN WEEKLY Mounjaro 7.5 mg/0.5 mL subcutaneou s pen injector ADMINISTER 7.5 MG UNDER THE SKIN WEEKLY No Mounjaro 7.5 mg/0.5 mL subcutaneo us pen injector ADMINISTER 7.5 MG UNDER THE SKIN WEEKLY [facility] mupirocin 2 % topical ointment APPLY TO NARES TWICE A DAY. mupirocin 2 % topical ointment APPLY TO NARES TWICE A DAY. No mupirocin 2 % topical ointment APPLY TO NARES TWICE A DAY. [facility] ondansetron 4 mg disintegrat ing [...] SIX HOURS NEEDED FOR NAUSEA AND VOMITING. [facility] Tylenol 325 mg capsule Take as needed by oral route. Tylenol 325 mg capsule Take as needed by oral route. No Tylenol 325 mg capsule Take as needed by oral route. [facility] vancomycin vancomycin No vancomycin [facility] Zofran Zofran No Zofran [facility] Immunizations Ordered Immunization Name Filled Immunization Name Date Status Comments Source Td 2012-10-10 00:00:00 Completed [facility] Td 2012-10-10 00:00:00 Completed [facility] Td 2012-10-10 00:00:00 Completed [facility] Td 2012-10-10 00:00:00 Completed [facility] Td 2012-10-10 00:00:00 Completed [facility] TD, NOS Unknown Completed [facility] Vital Signs Vital Name Observation Time [...] Medical Heart rate 2023-11-08 06:15:00 85 /min [facility] Respiratory rate 2023-11-08 06:15:00 12 /min [facility] Oxygen saturation in Arterial blood by Pulse oximetry 2023-11-08 06:15:00 99 /min [facility] Systolic blood pressure 2023-11-08 06:00:00 109 mm[Hg] [facility] Diastolic blood pressure 2023-11-08 06:00:00 89 mm[Hg] [facility] Body temperature 2023-11-08 05:45:00 36.56 Berna [facility] Body height 2023-11-07 23:01:00 154.9 cm [facility] Body weight 2023-11-07 23:01:00 54.885 kg [facility] BMI 2023-11-07 23:01:00 22.86 kg/m2 [facility] BP Systolic 2023-11-07 00:00:00 110 mm[Hg] [...] blood pressure 2020-06-06 20:49:00 120 mm[Hg] [facility] Diastolic blood pressure 2020-06-06 20:49:00 85 mm[Hg] [facility] Heart rate 2020-06-06 20:49:00 86 /min [facility] Procedures Procedure Date / Time Performed Performing Clinician Source CT, abdomen + pelvis, w/wo contrast 2023-11-29 00:00:00 [facility] CT, abdomen + pelvis, w/wo contrast 2023-11-14 00:00:00 [facility] LACTIC ACID WHOLE BLOOD 2023-11-08 03:08:00 Do iglesia Torrez [facility] CT ABDOMEN PELVIS W CONTRAST 2023-11-08 01:01:00 Jocelyn Torrez [facility] LIPASE 2023-11-07 23:47:00 Jocelyn Torrez [facility] COMP. METABOLIC PANEL (18734) 2023-11-07 23:47:00 Jocelyn Torrez [facility] CBC WITH DIFF 2023-11-07 23:47:00 Jocelyn Torrez [facility] URINALYSIS 2023-11-07 23:47:00 [facility] CONSENT/REFUSAL FOR DIAGNOSIS AND TREATMENT 2023-11-07 22:49:54 Doctor Unassigned, [place] [facility] Hysterectomy 2023-09-23 00:00:00 Guadalupe Warren edical Hysteroscopy Biopsy 2023-08-09 00:00:00 [facility] XR HAND <3 VW RIGHT 2020-06-06 20:55:12 Gayle Hinojosa [facility] ASSIGNMENT OF BENEFITS 2020-06-06 20:30:19 Docto r Unassigned, [place] [facility] DME/SUPPLY JUSTIFICATION 2020-05-29 05:01:00 Doc tor Unassigned, [place] [facility] Hernia Repair 2014-09-09 00:00:00 [facility] Cholecystectomy (Gallbladder) 2006-09-09 00:00:00 [facility] Plan of Care Planned Activity Planned Date Details Comments Source Diagnostic Test Pending 2023-11-29 00:00:00 CBC w/ auto diff [code = CBC w/ auto diff] [facility] Future Appointment 2023-12-17 09:15:00 Ashley noonan, [address]; [address], [place] [phone] [facility] Medical Encounters Start Date/Time End Date/Time Encounter Type Admission Type Attending Clinicians Care Facility Care Department Encounter ID Source 2023-11-29 00:00:00 2023-11-29 00:00:00 Ashley Rodriguez MD: [address], [place] [address] , Ph. GC_GCBZW_Ka tiffanya_S [facility] - GC_GCBZW_[facility]* [id number] [facility] 2023-11-27 00:00:00 2023-11-27 00:00:00 Outpatient GC_GCBZW_Ka diyala_S [facility] [id number] [facility] 2023-11-20 00:00:00 2023-11-20 00:00:00 Ashley Rodriguez MD: [address], [place] [phone] , Ph. GC_GCBZW_Ka diyala_S [facility] - GC_GCBZW_Kaylynn palomares Moshe* [id number] [facility] 2023-11-20 00:00:00 2023-11-20 00:00:00 Ashley Rodriguez MD: [address], [place] [phone] , Ph. [facility] - GC_GCBZW_Kaylynn marielle Moshe* [id number] [facility] 2023-11-19 11:00:00 2023-11-19 11:00:00 Outpatient Ashley Blevins [facility] [id number] [address] [place] [address] 2023-11-18 00:00:00 2023-11-18 00:00:00 Outpatient GC_GCBZW_Ka diyala_S PRIV PRIV [id number] [facility] 2023-11-13 00:00:00 2023-11-13 00:00:00 Ashley Rodriguez MD: [address], [place] [phone] , Ph. GC_GCBZW_Ka diyala_S [facility] - GC_GCBZW_Kaylynn marielle Moshe* [id number] [facility] 2023-11-13 00:00:00 2023-11-13 00:00:00 Ashley Rodriguez MD: [address], [place] [phone] , Ph. [facility] - GC_GCBZW_Kaylynn marielle Moshe* [id number] [facility] 2023-11-11 00:00:00 2023-11-11 00:00:00 Outpatient GC_GCBZW_Ka diyala_S PRIV PRIV [id number] [facility] 2023-11-08 03:21:00 2023-11-10 10:07:00 Inpatient Jennifer Cruz [facility] [id number] [facility] 2023-11-07 17:03:00 2023-11-08 00:37:00 Emergency X JOCELYN TORREZ [facility] ERT [id number] [facility] 2023-11-07 17:03:00 2023-11-08 00:37:00 Emergency Jocelyn Torrez [facility] [id number] [facility] 2023-11-07 00:00:00 2023-11-07 00:00:00 HERBERTH Galo: [address], [place] [address] , Ph. [facility] - GC_GCBZW_Kaylynn [place]* [id number] [facility] 2023-11-07 00:00:00 2023-11-07 00:00:00 HERBERTH Gaol: [address], [place] [address] , Ph. [facility] - GC_GCBZW_Kaylynn palomares Moshe* [id number] [facility] 2023-11-04 00:00:00 2023-11-04 00:00:00 Outpatient GC_GCBZW_Nini nash_Gregor [facility] [id number] [facility] 2023-10-30 00:00:00 2023-10-30 00:00:00 Ashley Rodriguez MD: [address], [place] [address] , Ph. [facility] - GC_GCBZW_[facility]* [id number] [facility] 2023-10-22 14:33:00 2023-10-23 10:25:[address] [facility] MEDI.01 [id number] [facility] 2023-10-22 14:33:00 2023-10-23 10:25:00 Inpatient EM Mack Pack HCAPM MEDI.01 [id number] [facility] 2023-10-21 22:17:00 2023-10-21 22:17:00 Outpatient Mack Pack HCACL LABO [id number] [facility] 2023-10-21 22:17:00 2023-10-21 22:17:00 Outpatient Mack Pack HCACL LABO [id number] [facility] 2023-10-21 00:00:00 2023-10-21 00:00:00 Outpatient GC_GCBZW_Ka diyala_S PRIV PRIV [id number] [facility] 2023-10-21 00:00:00 2023-10-21 00:00:00 CHELSY Myrick: [address], [place] [phone] , Ph. [facility] - GC_GCBZW_[facility]* [id number] [facility] 2023-09-30 00:00:00 2023-09-30 00:00:00 Outpatient GC_GCBZW_Ka diyala_S [facility] PRIV [id number] [facility] 2023-09-30 00:00:00 2023-09-30 00:00:00 CHELSY Myrick: [address], [place] [address] , Ph. [facility] - GC_GCBZW_[facility]* [id number] [facility] 2023-09-23 12:27:00 2023-09-23 12:27:00 Outpatient Ashley Blevins HCAPM DAVID [id number] [facility] 2023-09-20 00:00:00 2023-09-20 00:00:00 Outpatient GC_GCBZW_Ka diyala_S PRIV PRIV [id number] [facility] 2023-09-17 00:00:00 2023-09-17 00:00:00 Outpatient GC_GCBZW_Ka diyala_S PRIV PRIV [id number] [facility] 2023-09-13 00:00:00 2023-09-13 00:00:00 Outpatient GC_GCBZW_Ka diyala_S PRIV PRIV [id number] [facility] 2023-08-27 00:00:00 2023-08-27 00:00:00 Outpatient GC_GCBZW_Ka diyala_S PRIV PRIV [id number] [facility] 2023-08-09 00:00:00 2023-08-09 00:00:00 Outpatient GC_GCBZW_Ka diyala_S PRIV PRIV [id number] [facility] 2023-08-09 00:00:00 2023-08-09 00:00:00 Outpatient GC_GCBZW_Ka diyala_S PRIV PRIV [id number] [facility] 2023-06-19 00:00:00 2023-06-19 00:00:00 Outpatient GC_GCBZW_Ka diyala_S PRIV PRIV [id number] [facility] 2023-06-19 00:00:00 2023-06-19 00:00:00 Outpatient GC_GCBZW_Ka diyala_S PRIV PRIV [id number] [facility] 2023-06-19 00:00:00 2023-06-19 00:00:00 Outpatient GC_GCBZW_Ka diyala_S PRIV PRIV [id number] [facility] 2023-06-19 00:00:00 2023-06-19 00:00:00 Outpatient GC_GCBZW_Ka diyala_S PRIV PRIV [id number] [facility] 2023-06-18 00:00:00 2023-06-18 00:00:00 Outpatient GC_GCBZW_Ka diyala_S PRIV PRIV [id number] [facility] 2023-06-04 00:00:00 2023-06-04 00:00:00 Outpatient GC_GCBZW_Ka diyala_S [facility] [id number] [facility] 2022-08-23 13:30:00 2022-08-23 13:30:00 Outpatient R MARIANNJARVISMOY CALDERON JANETTE [facility] [id number] [facility] 2022-08-08 15:30:00 2022-08-08 15:30:00 Outpatient R SHANA [facility]SE [facility] [id number] [facility] 2020-06-13 16:15:00 2020-06-13 16:15:00 Outpatient R [facility] [id number] [facility] 2020-06-06 15:55:12 2020-06-06 23:59:00 Hospital Encounter [facility] 1..840.114 [id number] [id number] [facility] 2020-06-06 16:00:00 2020-06-06 16:00:00 Outpatient R [facility] [id number] [facility] 2020-06-06 15:34:00 2020-06-06 15:49:00 Office [facility] 1..840.114 [id number] [facility] 2020-06-06 00:00:00 2020-06-06 00:00:00 Orders Only Doctor Unassigned, [place] [facility] [id number] [id number] [facility] 2020-05-29 00:00:00 2020-05-29 00:00:00 Orders Only Doctor Unassigned, [place] [facility] [id number] [id number] [id number] [facility] Results Test Description Test Time Test Comments Results Resul t Comments Source - CT ABD PELVIS W WO CONT 2023-11-19 14:37[facility]00 [facility] 1985 Sex: F Name: MARIA DEL CARMEN RUIZ [facility] : 1985 Age/S: 38 / F [address] Unit #: [id number] Loc: [place] [address] Phys: Ashley Rodriguez MD Acct: [id number] Dis Date: Status: REG CLI PHONE #: [phone] Exam Date: 11/19/2023 1200 FAX #: Reason: PELVIC AND PERINEAL PAIN EXAMS: CPT: [id number] CT ABD PELVIS W WO CONT [id number] Location Code: S17 EXAMINATION: - CT ABD [...] RUIZ : 1985 Age/S: 38 / F [address] Unit #: [id number] Loc: [place] [address] Phys: Ashley Rodriguez MD Acct: [id number] Dis Date: Status: REG CLI PHONE #: [phone] Exam Date: 11/19/2023 1200 FAX #: Reason: PELVIC AND PERINEAL PAIN EXAMS: CPT: [id number] CT ABD PELVIS W WO CONT 82494 (Continued) No evidence of drainable fluid collection. [...] (1437) [email or web address] Orig Print D/T: S: 11/19/2023 (7910) PAGE 2 Signed Report CBC W/AUTO [id number] 12:25:00* Test Item Value Reference Range Interpretation [...] code = PLTMR) NORMAL NORMAL infectious disease [id number] 11:01:00* Test Item Value Reference Range Interpretation [...] code = hortensia krusei) 0 ppm 10.500-32.000 [facility] Medicalinfectious disease [id number] 11:01:00* Test Item Value Reference Range Interpretation [...] code = hortensia krusei) 0 ppm 10.500-32.000 [facility] Medicalinfectious disease [id number] 11:01:00* Test Item Value Reference Range Interpretation [...] code = hortensia krusei) 0 ppm 10.500-32.000 [facility] Medicalinfectious disease [id number] 11:01:00* Test Item Value Reference Range Interpretation [...] code = hortensia krusei) 0 ppm 10.500-32.[address] [facility] CT ABD PELVIS [id number] 09:37:00 [facility] : 1985 Sex: F Patient Name: MARIA DEL CARMEN RUIZ Unit No: [id number] EXAMS: CPT CODE: [id number] CT ABD PELVIS W/CONT 52203QL ABDOMEN AND PELVIS WITH CONTRAST: INDICATIONS:Pelvic abscess Comparison: Outside CT dated November 07, 2023. TECHNIQUE: Axial CT imaging of the abdomen and pelvis IV contrast. Coronal and sagittalreformats reconstructed. One or more of the following [...] No enhancing kidney mass. No hydronephrosis or hy droureter. Unremarkable urinary bladder. Prior ventral hernia/umbilical hernia repair. No small or large bowel obstruction. A normal caliber appendix. The abdominal aorta is of normal caliber withoutdissection or aneurysm. No suspicious bony lesion. IMPRESSION: [facility] NAME: MARIA DEL CARMEN MARTIN Radiology Department PHYS: HAYDEESTEPHANIE Leiva Steffany Byrne [address] : 1985 AGE: 38 SEX: F [place], [place] [address] LOC: F.2600 A PHONE #: [phone] EXAM DATE: 11/08/2023 STATUS: ADM IN FAX #: [phone] RAD NO: Page 1 Signed Report 1 Patient Name: MARIA DEL CARMEN RUIZ Unit No: [id number] EXAMS: CPT CODE: [id number] CT ABD PELVIS W/CONT 74123 (Continued) Status post hysterectomy. Some fluid strandings and mesenteric inflammations at the surgical site andat superior vaginal vault. No discrete walled off collection. at 0937 Reported and signed by: Barry Cook MD CC: Steffany Byrne MD; Maura Rodriguez MD; Jennifer Salazar MD Technologist: Wei Ontiveros, RT, CT CTDI: 3.98 DLP: 193.93 Trnscrbd D/ (0937) [email or web address].[email or web address] [facility] NAME: MARIA DEL CARMEN RUIZ Radiology Department PHYS: LATESHA. - Steffany Byrne [address] : 1985 AGE: 38 SEX: F [place], [place] [address] LOC: F.2600 A PHONE #: [phone] EXAM DATE: 11/08/2023 STATUS: ADM IN FAX #: [phone] RAD NO: Page 2 Signed Report 1 Patient Name: MARIA DEL CARMEN RUIZ Unit No: [id number] EXAMS: CPT CODE: [id number] CT ABD PELVIS W/CONT 36809 (Continued) Orig Print D/T: S: 11/08/2023 (0941) [facility] NAME: MARIA DEL CARMEN RUIZ Radiology Department PHYS: Steffany Joseph [address] : 1985 AGE: 38 SEX: F [place], [place] [address] LOC: Linda Munoz PHONE #: [phone] EXAM DATE: 11/08/2023 STATUS: ADM IN FAX #: [phone] RAD NO: Page 3 Signed Report 1CT ABDOMEN PELVIS W WEZVWWZE5998-93-83 04:23:44EXAM: CT ABDOMEN/PELVIS WITH CONTRAST HISTORY: ?Abdominal [...] TISSUES: No suspicious lytic or sclerotic bony lesions.[facility] HospitalLactic Acid Whole Izfcv1101-80-43 03:17:00* Test Item Value Reference Range Interpretation Comme nts LACTIC ACID (test code = 5072068584) 1.22 mmol/L 0.50-2.20 Lab Interpretation (test cod e = 40270-0) Normal [facility] WITH GIMV2199-26-16 00:42:59* Test Item Value Reference Range Interpretation [...] 34.5 g/dL 31.6-35.1 RDW-SD (test code = 20447-3) 41.6 fL 39.0-49.9 RDW-CV (test code = 788-0) 12.8 % 12.0-15.5 PLT (test code = 777-3) 387 166-358 H MPV (test code = 05114-8) 10.1 fL 9.5-12.9 NRBC/100 WBC (test code = 5659420253) 0.0 0.0-10.0 NRBC x10^3 (test code = 4057930066) See_Comment [Automated message] The system which generated this result transmitted reference range: 10*3/?L. The reference range was not used to interpret this result as normal/abnormal. GRAN MAT (NEUT) % (test code = 770-8) 70.4 % IMM GRAN % (test code = 2826250274) 0.50 % LYMPH % (test code = 736-9) 19.8 % MONO % (test code = 5905-5) 8.1 % EOS % (test code = 713-8) 0.7 % BASO % (test code = 706-2) 0.5 % GRAN MAT x10^3(ANC) (test code = 7526365720) 13.44 10*3/uL 1.88-7.09 H IMM GRAN x10^3 (test code = 8852590689) 0.09 10*3/uL 0.00-0.06 H LYMPH x10^3 (test code = 731-0) 3.77 10*3/uL 1.32-3.29 H MONO x10^3 (test code = 742-7) 1.55 10*3/uL 0.33-0.92 H EOS x10^3 (test code = 711-2) 0.13 10*3/uL 0.03-0.39 BASO x10^3 (test code = 704-7) 0.10 10*3/uL 0.01-0.07 H Lab Interpretation (test code = 31161-2) Abnormal [facility] HospitalCOMP. METABOLIC PANEL (81900)2023-11-08 00:26:19* Test Item Value Reference Range Interpretation Comme nts NA (test code = 2312894412) 138 mmol/L 135-145 K (test code = 8011172518) 3.3 mmol/L 3.5-5.0 L CL (test code = 5205634027) 109 mmol/L 98-108 H CO2 TOTAL (test code = 7033648559) 22 mmol/L 23-31 L AGAP (test code = 9290207811) 7 2-16 BUN (test code = 0145333764) 17 mg/dL 7-23 GLUCOSE (test code = 9326815839) 99 mg/dL 70-110 CREATININE (test code = 2160-0) 0.69 mg/dL 0.50-1.04 TOTAL BILI (test code = 6796489936) 0.5 mg/dL 0.1-1.1 CALCIUM (test code = 4155806318) 9.1 mg/dL 8.6-10.6 T PROTEIN (test code = 2501242593) 7.1 g/dL 6.3-8.2 ALBUMIN (test code = 0757786155) 4.1 g/dL 3.5-5.0 ALK PHOS (test code = 6080344362) 76 U/L 34-122 ALTv (test code = 1742-6) 19 U/L 5-35 AST(SGOT) (test code = 7822082899) 18 U/L 13-40 eGFR (test code = 74393-9) 114.1 mL/min/1.73m2 CKD-EPI eGFR (2020). Assuming creatinine has been stable day-to-day for at least three months, the eGFR indicates Category G1 (>= 90 mL/min/1.73 m2) Lab Interpretation (test code = 88612-8) Abnormal [facility] HospitalLIPASE2024-03-01 00:25:58* Test Item Value Reference Range Interpretation Comme nts LIPASE (test code = 9873678508) 157 U/L 0-220 Lab Interpretation (test cod e = 61673-0) Normal [facility] HospitalUrinalysis macro (dipstick) panel - Urine 2023-11-07 14:37:00* Test Item Value Reference Range Interpretation Comme nts Leukocytes (test code = Leukocytes) Negative Nitrite (test code = Nitrite) negative Urobilinogen (test code = Urobilinogen) Normal Protein (test code = Protein) Negative pH (test code = pH) 6.0 Blood (test code = Blood) 1+ Specific [place] (test code = Specific [place]) 1.015 Ketone (test code = Ketone) Negative Bilirubin (test code = Bilirubin) Negative Glucose (test code = Glucose) Negative Appearance (test code = Appearance) Slightly Cloudy Color (test code = Color) Dark Yellow [facility] MedicalUrinalysis macro (dipstick) panel - Cvwjh5506-03-46 14:37:00* Test Item Value Reference Range Interpretation Comme nts Leukocytes (test code = Leukocytes) Negative Nitrite (test code = Nitrite) negative Urobilinogen (test code = Urobilinogen) Normal Protein (test code = Protein) Negative pH (test code = pH) 6.0 Blood (test code = Blood) 1+ Specific [place] (test code = Specific [place]) 1.015 Ketone (test code = Ketone) Negative Bilirubin (test code = Bilirubin) Negative Glucose (test code = Glucose) Negative Appearance (test code = Appearance) Slightly Cloudy Color (test code = Color) Dark Yellow [facility] MedicalUrinalysis macro (dipstick) panel - Scayh9312-06-77 14:37:00* Test Item Value Reference Range Interpretation Comme nts Leukocytes (test code = Leukocytes) Negative Nitrite (test code = Nitrite) negative Urobilinogen (test code = Urobilinogen) Normal Protein (test code = Protein) Negative pH (test code = pH) 6.0 Blood (test code = Blood) 1+ Specific [place] (test code = Specific [place]) 1.015 Ketone (test code = Ketone) Negative Bilirubin (test code = Bilirubin) Negative Glucose (test code = Glucose) Negative Appearance (test code = Appearance) Slightly Cloudy Color (test code = Color) Dark Yellow [facility] MedicalUrinalysis macro (dipstick) panel - Qbgsw9399-09-11 14:37:00* Test Item Value Reference Range Interpretation Comme nts Leukocytes (test code = Leukocytes) Negative Nitrite (test code = Nitrite) negative Urobilinogen (test code = Urobilinogen) Normal Protein (test code = Protein) Negative pH (test code = pH) 6.0 Blood (test code = Blood) 1+ Specific [place] (test code = Specific [place]) 1.015 Ketone (test code = Ketone) Negative Bilirubin (test code = Bilirubin) Negative Glucose (test code = Glucose) Negative Appearance (test code = Appearance) Slightly Cloudy Color (test code = Color) Dark Yellow [facility] MedicalBASIC METABOLIC TVVNM4681-41-92 05:50:00* Test Item Value Reference Range Interpretation [...] CA) 8.3 MG/DL 8.5-10.1 L CBC W/AUTO NEZB8322-16-02 05:03:00* Test Item Value Reference Range Interpretation [...] NRBC#) 0.0 K/mm3 0.0-0.1 N COMPREHENSIVE METABOLIC TNGLZ4446-07-68 05:31:00* Test Item Value Reference Range Interpretation [...] code = ALKP) 60 Unit/L 45-117 N DNHJWXMWOCB5250-93-16 05:31:00* Test Item Value Reference Range Interpretation Comme nts PHOSPHOROUS (test code = PHOS) 2.8 MG/DL 2.5-4.9 N BTTFFPUZB9754-84-06 05:31:00* Test Item Value Reference Range Interpretation Comme nts MAGNESIUM (test code = MAG) 2.3 MG/DL 1.8-2.4 N PROTHROMBIN OQTQ4194-46-87 05:21:00* Test Item Value Reference Range Interpretation [...] Infarction (to prevent recurrent infarct). THROMBOPLASTIN TIME RCGUERM0874-44-57 05:21:00* Test Item Value Reference Range Interpretation Comme nts THROMBOPLASTIN TIME PARTIAL (test code = PTT) 26.9 SECONDS 26-35 N SFPVIQIUWT7507-90-30 05:21:00* Test Item Value Reference Range Interpretation Comme nts FIBRINOGEN (test code = FIB) 297 mg/dL 185-453 N CBC W/AUTO SXTW3490-95-85 05:13:00* Test Item Value Reference Range Interpretation [...] = NRBC#) 0.0 K/mm3 0.0-0.1 N LACTIC OEQJ7634-36-26 20:28:00* Test Item Value Reference Range Interpretation Comme nts LACTIC ACID (test code = LACT) 0.9 mmol/L 0.4-2.0 N - CT ABD PELVIS W/ZELS5782-96-39 19:03:00 [facility] : 1985 Sex: F Name: MARIA DEL CARMEN RUIZ [facility] : 1985 Age/S: 38 / F [address] Unit #: [id number] Loc: [place] [address] Phys: Joe Torres SECOND CUTTER Acct: [id number] Dis Date: Status: REG ER PHONE #: [phone] Exam Date: 10/21/20231837 FAX #: Reason: pain EXAMS: CPT: [id number] CT ABD PELVIS W/CONT 41518 Location:H77 EXAM: CT ABDOMEN/PELVIS WITH CONTRAST DATE: 10/21/2023 [...] RUIZ : 1985 Age/S: 38 / F [address] Unit #: [id number] Loc: [place] [address] Phys: Joe Torres SECOND CUTTER Acct: [id number] Dis Date: Status:REG ER PHONE #: [phone] Exam Date: 10/21/20231837 FAX #: Reason: pain EXAMS: CPT: [id number] CT ABD PELVIS W/CONT 58945 (Continued) No retroperitoneal, mesenteric or pelvic lymphadenopathy. No fluid collections or free fluid. No free air. The uterus is absent. No adnexal mass. The urinary bladder is decompressed limiting its evaluation.. No acute osseous lesions. Post surgical changes of ananterior abdominal wall repair. IMPRESSION: No acute abdominal or pelvic abnormality. at 1903 Reported and signed by: Kendal Barry M.D. CC: Joe Torres SECOND CUTTER; Ashley Rodriguez MD Technologist:Amadou Varela, RT(R) CTDI: DLP: Trnscb Date/Time: 10/21/2023 (1902) JuanMOP Orig Print D/T: S: 10/21/2023 (1906) PAGE 2Signed Report- CT ABD PELVIS W/WGMZ4733-41-16 19:03:00 [facility] : 1985 Sex: F Name: MARIA DEL CARMEN RUIZ [facility] : 1985 Age/S: 38 / F [address] Unit #: [id number] Loc: [place] [address] Phys: Joe Torres NP Acct: [id number] Dis Date: 10/23/2023 Status: DIS IN PHONE #: [phone] Exam Date: 10/21/2023 1838 FAX #: Reason: pain EXAMS: CPT: [id number] CT ABD PELVIS W/CONT 34543 Location:7 EXAM: CT ABDOMEN/PELVIS WITH CONTRAST DATE: [...] RUIZ : 1985 Age/S: 38 / F [address] Unit #: [id number] Loc: [place] [address] Phys: Joe Torres NP Acct: [id number] Dis Date: 10/23/2023 Status: DIS IN PHONE #: [phone] Exam Date: 10/21/2023 1838 FAX #: Reason: pain EXAMS: CPT: [id number] CT ABD PELVIS W/CONT 33534 (Continued) No retroperitoneal, mesenteric or pelvic lymphadenopathy. No fluid collections or free fluid. No free air. The uterus is absent. No adnexal mass. The urinary bladder is decompressed limiting its evaluation.. No acute osseous lesions. Postsurgical changes of an anterior abdominal wall repair. IMPRESSION: No acute abdominal or pelvic abnormality. at 1903 Reported and signed by: Kendal Hudson M.D. CC: Joe Torres SECOND CUTTER; Ashley Rodriguez MD Technologist:Amadou Varela, RT(R) CTDI: DLP: Trnscb Date/Time: 10/21/2023 (1902) t.SDR.MOP Orig Print D/T: S: 10/21/2023 (1906) PAGE 2 Signed ReportUA RFLX MICR CULT IF MITHYXFYI3638-92-47 18:25:00* Test Item Value Reference Range Interpretation [...] srcSOURCE OF URINE: CLEAN CATCH BASIC METABOLIC YYWNZ3626-65-31 18:12:00* Test Item Value Reference Range Interpretation [...] CA) 9.1 MG/DL 8.5-10.1 N HEPATIC FUNCTION XXGZF8462-55-51 18:12:00* Test Item Value Reference Range Interpretation [...] ALKP) 79 Unit/L 45-117 N CBC W/AUTO JPJJ9546-48-49 17:49:00* Test Item Value Reference Range Interpretation [...] NRBC#) 0.0 K/mm3 0.0-0.1 N infectious disease lxcva3263-24-07 03:20:00[facility]normal [facility] infectious disease zpgot0811-89-25 03:20:00Abnormal StatusPrivia MedicalSURGICAL 2023-09-26 16:31:00* Test Item Value Reference Range Interpretation Comme nts SURGICAL (test code = SR) RUN DATE: 09/26/23 [facility] PAGE 1 RUN TIME: 1631 Specimen Inquiry RUN USER: INTERFACE PATIENT: MARIA DEL CARMEN RUIZ LOC: WENDY U #: [id number] AGE/SX: 37/F ROOM: RE09/23[facility]23[facility]: Ashley Rodriguez MD : 85 BED: DIS: STATUS: [facility] TLOC: SPEC #: [id number]:PMC:SR34 RECD: 09/23/23 STATUS: [facility] #: [id number] SANTY: 09/23/23-0 [facility] DR: Ashley Rodriguez MD ENTERED: 09/23/23 SP TYPE: SURGICAL OTHR DR: ORDERED: 28865, 76501, ANATOMIC SPEC, SPECIMEN TRACK PROCEDURES: 75441 (09/23/23-2009) 02882 (09/26/23-1630) SPECIMEN TRACK (09/23/23) TISSUES: A. UTERINE [...] CONTINUED ON NEXT PAGE RUN DATE: 09/26/23 [facility] PAGE 2 RUN TIME: 1631 Specimen Inquiry RUN USER: INTERFACE SPEC #: [id number]:[facility]:[id number] PATIENT: MARIA DEL CARMEN RUIZ #[id number] (Continued) GROSS DESCRIPTION (Continued) B1 posterior cervixB2 anterior cervixB3-B4 posterior endomyometrium B5-B6 anterior endomyometriumB7 posterior reflection B8-B11 left ovarian cyst B12 left fallopian tube cut surface with entire bisected fimbriated end B13 right fallopian tube cut surface with entire bisected fimbriated end Technical tissue processing and slide preparation performed at [facility],[place] [address] , [place] [address] MICROSCOPIC DESCRIPTION A and B. Microscopic examination is performed and the findings are incorporated into thefinal diagnosis. Please see diagnosis for findings. Signed SIGNATURE ON FILE Yonathan Mattbibi 09/26/23 1631 END OF REPORT GLUCOSE BEDSIDE RDNTWCW5488-30-72 13:09:00* Test Item Value Reference Range Interpretation Comme [facility] GLUCOSE BEDSIDE TESTING (anamaria t code = GLUBED) 85 mg/dL 70-110 N BASIC METABOLIC LSEYO5845-11-27 12:19:00* Test Item Value Reference Range Interpretation [...] CA) 9.7 MG/DL 8.5-10.1 N CBC W/AUTO CNXX2220-66-78 12:06:00* Test Item Value Reference Range Interpretation [...] = NRBC#) 0.0 K/mm3 0.0-0.1 N URINALYSIS YELOWVZE0892-80-33 12:00:00* Test Item Value Reference Range Interpretation [...] NEGATIVE Urine Specimen Type: Clean CatchUR HCG QYKV0581-98-34 12:00:00* Test Item Value Reference Range Interpretation Comme nts UR HCG QUAL (test code = HCGQLU) NEGATIVE NEGATIVE Urine Specimen Type: Clean CatchXR HAND <3 VW EJCKE8657-64-00 21:43:26No sign of fracture or dislocation joint space is well-maintainedParkland Memorial Hospital Notes Date/Time Note Provider Source 2023-11-24 12:28:00 [id number]24Om+A Z 6yfg3jy+VZbHwzcdcK0DPY0TmkQFnPkMo599321-1 11-23T12:28:291089-3183 [facility] [address], [place] [address] PATIENT NAME: MARIA DEL CARMEN RUIZ ADMIT DATE: 11/08/23ACCOUNT NO: [id number] ROOM NO: 2600 AGE: 38 SEX: F ADMITTING PHYSICIAN: Jennifer Salazar MD ATTENDING PHYSICIAN: Jennifer Salazar MD Provider Query QUERY TEXT: Relationship Procedure Condition 360MD Query related questions should be directed to:[facility] Coding Query Hotline Please clarify the etiology [...] 1228 PATIENT NAME: MARIA DEL CARMEN RUIZ noteF.JDX98543412-8203BSGubrjrnig for patient qvyuERSQFOTYXKUIMJ4896-95-15G72:28:27 [facility] 2023-11-10 08:22:00 [id number]Onba l tPODK1AcE6hM0n4iQ5dydwHb1uTNmUcFE4V4118-7 08:22:00 [facility] [place] [facility]Discharge SummaryREPORT#:[id number] REPORT STATUS: SignedREPORT INITIALIZATION DATE:11/10/23 TIME: 821 PATIENT: MARIA DEL CARMEN RUIZ UNIT #: [id number]#: [id number] ROOM/BED: Adrien0-ADOB: [birth year] AGE: 38 SEX: F [...] of pelvic adhesions (09/23)who was transferred from [facility] for pelvic abscesses. The patient's post operative [...] useof this antibiotic. 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 Med Rec PCPPCP:PCP: Ashley Rodriguez MD ObjectiveVS/I OLast Documented: Result Date Time Pulse Ox 98 11/09 031 B/P 116/80 11/09 031 B/P Mean 92.1 [...] WEIGHT: Weight (lb): 121Weight (oz): Weight (kg): 54.127507 General appearance: alert, awake, orientedCardiovascular: regular rate rhythmRespiratory: no distressGI: soft, non-tender ResultsResults: no new labs, labs reviewed, vital signs reviewed, vital signs stable, CT results reviewed Discharge Instructions PCPPCP:PCP: Ashley Rodriguez MD Discharge InstructionsAdditional Discharge Routines: PCP Follow-Up at 0831 RPT #:[id number] OF REPORT DSDischarge iqakxlk6963-83-06N27:22:00F.FJXI56762846- 0040AVAvailable for patient scdlIMGKDLPHWXLRAE7286-07-17X36:31:27 [facility] 2023-11-09 10:32:00 [id number]2Std7M 8 d+tTw24VG75il/voXQx8G/AQz6mK8gO+qQm2216-0 11-08T10:32:00 [facility]FIELDGyne[facility] Progress NoteREPORT#:[id number] REPORT STATUS: SignedREPORT INITIALIZATION DATE:11/09/23 TIME: 103 PATIENT: MARIA DEL CARMEN RUIZ UNIT #: [id number]#: [id number] ROOM/BED: [facility]-ADOB: [birth year] AGE: 38 SEX: [...] 11/08 1127 O2 Delivery Room air 11/08 112 Temp 98.1 11/08 1127 Pulse 96 11/08 1127 Resp 17 11/08 1127 Vital SignsDate Temp Pulse Resp B/P B/P Mean Pulse Ox AaS785/01-11/08 97.7-98.1 86-99 16-19 100-133/70-97 80.1-107.8 94-100 Physical ExamHEENT: moist mucosal membranesRespiratory: no distressAbdomen: non-tender, soft, no CVA tenderness, no distention, no guarding, no reboundExtremities: moves all, no calf tenderness, no edemaNeuro/COMPUTER SYSTEMS TECHNICIAN: alert, oriented X 3, normal speech ResultsFindings/Data:Laboratory [...] (Auto) (14.5 - 29.7 %) 31.3 H Chase % (Auto) (3.6 - 10.2 %) 8.5 Eos % (Auto) (0.0 - 3.0 %) 4.2 H Baso % (Auto) (0.1 - 0.9 %) 0.8 Neut # (Auto) (K/mm3) 4.7 Lymph # (Auto) (K/mm3) 2.7 Chase # (Auto) (K/mm3) 0.7 Eos # (Auto) [...] coverage2. Constipation: Miralax prn at 2220 RPT #:[id number] OF REPORT PRProgress crws8252-27-41O43:32:00F.GKDS54613117-660 0AVAvailable for patient eclfQQYOOJDKBFUDNR6978-28-99T12:21:20 [facility] 2023-11-08 09:52:00 [id number]byv x z45dKCVxAoURgagqgvr0lFTi52I96Wxcy496501-0 11-07T09:52:00 [facility] [place] ([facility])Gynecology Progress NoteREPORT#:[id number] REPORT STATUS: SignedREPORT INITIALIZATION DATE:11/08/23 TIME: 951 PATIENT: MARIA DEL CARMEN RUIZ UNIT #: [id number]#: [id number] ROOM/BED: [facility]-ADOB: [birth year] AGE: 38 SEX: [...] 11/07 0218 O2 Delivery Room air 11/07 021 Temp 97.9 11/07 0218 Pulse 84 11/07 [...] WEIGHT: Weight (lb): 121Weight (oz): Weight (kg): 54.815760 Medications:Active Meds + DC'd Last 24 Hrs Clindamycin HCl/Dextrose (CLEOCIN 900MG IVPB - 50ML) 50 ML Q8H IV Gentamicin Sulfate/Sodium Chloride (GENTAMICIN 120MG/NS 100ML) 200 ML Q24H IV Ibuprofen (IBUPROFEN 800 MG TAB) 800 MG Q8H PO Oxycodone/Acetaminophen (PERCOCET TAB 5/325 MG) 1 TAB Q4H PRN PRN PO Lactated Ringer's (LACTATED RINGERS) 1,000 ML .A64F85U IV Physical ExamGeneral appearance: alert, awake, oriented, no acute distress, pleasant, sittingup in bedHEENT: moist mucosal membranesRespiratory: aerating well, symmetric expansionAbdomen: normal bowel sounds, non-tender, soft, no CVA tenderness, no distention, no guarding, no reboundExtremities: moves all, no calf tenderness, no edemaNeuro/COMPUTER SYSTEMS TECHNICIAN: alert, oriented X 3, normal speech ResultsFindings/Data:Laboratory Tests Recent Impressions:CAT SCAN - CT ABD PELVIS W/CONT 11/07 906 Report Impression - Status: SIGNED Entered: 11/08/2023 [...] % (Auto) (14.5 - 29.7 %) 22.2 Chase % (Auto) (3.6 - 10.2 %) 9.3 Eos % (Auto) (0.0 - 3.0 %) 2.0 Baso % (Auto) (0.1 - 0.9 %) 0.7 Neut # (Auto) (K/mm3) 9.1 Lymph # (Auto) (K/mm3) 3.1 Chase # (Auto) (K/mm3) 1.3 Eos # (Auto) (K/mm3) 0.28 Baso # (Auto) (K/mm3) 0.1 Results: labs reviewed, vital signs reviewed, reviewed records from [facility] and summarized above (started on clinda/gent at [facility]) Diagnosis, Assessment PlanFree Text A P:38 year old status post RA-TLH/BS/LSO/extensive lysis of adhesions with suspected vaginal cuff cellulitis vs. early pelvic abscesses-Repeat CT scan noted above, IR drainage not indicated based on CT scan performed here-Gent/Clinda continue for abx coverage- repeat cbc in am, today improved WBC count from 19,000--continue current mgmtPlan discussed with: patient, nurse at 1602 RPT #:[id number] OF REPORT PRProgress hygz8451-09-38Y47:52:00F.APIS73040713-906 5AVAvailable for patient aiggMVEBLOAMLXULCP4944-06-85P15:02:52 [facility] 2023-11-08 06:44:00 [id number]fKL3la 6 JJxtG+jUFbRIKei9jdVtCdlNHjjKGI5LUnE6038-8 11-07T06:44:00 [facility] [place] ([facility])TELEVISION STATION MANAGER Admission H PREPORT#:[id number] REPORT STATUS: SignedREPORT INITIALIZATION DATE:11/08/23 TIME: 643 PATIENT: MARIA DEL CARMEN RUIZ UNIT #: [id number]#: [id number] ROOM/BED: [facility]-ADOB: [birth year] AGE: 38 SEX: F ATTEND: Jennifer Salazar MDADM AUTHOR: Jennifer Salazar MDREPT SERVICE DT/TIME: 11/08/23 0644* ALL edits or amendments must be made on the electronic/computer document * History of Present IllnessChief complaint:Pelvic pain Free Text HPI NotesFree Text HPI Notes:38 year old stauts post RA-TLH/BS/LSO/extensive lysis of pelvic adhesions (09/23)who was transferred from [facility] for pelvic abscesses. The patient's post operative [...] Status Admin Clindamycin HCl/ 50 ML Q8H 03/01 030 AC 11/07 Dextrose IV 11/14 025 0539 [...] Time Status Admin Lactated Ringer's 1,000 ML .M67K48D 11/07 024 AC 11/07 (LACTATED RINGERS) IV [...] WEIGHT: Weight (lb): 121Weight (oz): Weight (kg): 54.794460 General appearance: alert, awake, orientedCardiovascular: regular rate rhythmAbdomen/GI: soft, non-tender, no guarding, no rebound Diagnosis, Assessment Plan Free Text DxA P NotesFree Text DxA P Notes:38 year old status post RA-TLH/BS/LSO/extensive lysis of adhesions with suspected pelvic abscesses/cellulitis-Repeat CT scan -Consider IR drainage if indicated-Gent/Clinda started for antibiotic coverage. at 0651 RPT #:[id number] OF REPORT HPHistory and physical nyfqughendg6262-97-50V57:44:00F.HUFZ99551 301-0035AVAvailable for patient sqigFYJNAUZKDVBTKZ6051-17-45R81:52:00 [facility] 2023-11-08 00:28:31 v5Ly81Y32kXq1Kh7CAzQjnKUpiTa74XCpdbhzlqC 0 Ujg06i6msnPdfPchJDjCq6N0836-02-39S70:28:3 1 Report to [facility] [address]-3Csdzskaak department PmtnKU8586-36-22T27:28:44Emergency department NoteTXT1.2.840.627833.1.13.104.2.7.2.7278 79|[id number] for patient yhgn45069-5GccfWUNDXAZKMXPYlqmkrjmz C-CDA narrative lmwq607767104Dntpez R Shehadeh RN[address] AsdqPixntkaiuQdracqzrcBOBT4990782224OABCE MTTGIWECDBPRGLHWJ6226-60-12C61:28:441.2.8 40.633250.1.72.3.15|1.2.840.298767.1.13.1 04.2.7.2.727879_2037683178 Alice Hook RN [facility] 2023-11-07 23:58:34 iUsuj6pbHuFrHDmxIj8+Ia/ryKGpYxccIq7ZVWTc B x7mVdhMpkZoQRPDRkUMfT5m9613-00-82D60:58:3 4 Patient transferring to [facility] for diagnosis of postop infectionPatient agrees to transfer/admit plan and verbalized understanding of plan of care, family aware of planPatient awake alert, oriented, resp reg unlabored, skin w/d PIV patent, no s/s infiltration noted,No adverse reaction to medications given while in ED.[facility] signed by Alice Hook RN at 11/08/2023 12:00 AM SKB57224-2Uxausvbbu department DkixOE3916-15-30V79:00:06[facility] department NoteTXT1.2.840.784343.1.13.104.2.7.2.7278 79|[id number] for patient clrc29383-0RczoPJCMVKHLTTKOzaybgboa C-CDA narrative text[address] DmrtCeyhbltozCxjccgbxwYXQJ3830362784CJZGK YSMVLWGJEIZLJEDRN0827-95-47R20:00:061.2.8 40.138416.1.72.3.15|1.2.840.523385.1.13.1 04.2.7.2.727879_[id number] [facility] 2023-11-07 23:11:10 /Q2ZaXvaAgm7I2r41IPsPh56o5wD2fQpaMVk9Klv N VxnPwreIvQogTC2PXHCk16K2626-05-03Q93:11:1 0 Report given to BLAYNE Hook 28860-8Kgndjktlq department RkyxKU7723-05-82J87:11:41[facility] department NoteTXT1.2.840.339121.1.13.104.2.7.2.7278 79|[id number] for patient fhoj25572-9SnvuODDYYKUUFMLMjjghgqto C-CDA narrative [id number] M Herrera RNUT[id number] RETJSXPWPNEQKRQTW0532-55-08X74:11:411.2.8 40.789743.1.72.3.15|1.2.840.292863.1.13.1 04.2.7.2.727879_[id number] Heidi Briana Dickson RN [facility] 2023-11-07 17:01:00 yrzTkP5E/IhdVeFL2/eJE1sYgYu/9HIOTQfMXeJN X 4HgMVFoRgGYPFERoRIspMNZ7419-49-64F54:01:0 0 Pt states she is having abd pain; she had a hyst on 09/23/2023. States she saw of ob today and was told the abd pain was not related to the hyst. 41417-5Yvglzwnef department Triage sbzxLA2818-20-96Y80:02:59[facility] Triage noteTXT1.2.840.730451.1.13.104.2.7.2.7278 79|[id number] for patient putt59121-9Wlxvtgcpz department NoteLNNARRATIVEFormatted C-CDA narrative text[id number] CABYAUJTZVAOERCIG6563-04-82I54:02:591.2.8 40.752985.1.72.3.15|1.2.840.700038.1.13.1 04.2.7.2.727879_[id number] [facility] 2023-11-07 16:47:00 xjXmx2bslpJGE78+06BtpGxgFsbowQdFVxnyPTSl S rj6UmU0R+tKaVzs0shScHJx6380-44-89V82:47:0 0 Images from the original note were not included.[facility]Patient Name[facility] Maria Del Carmen [place] of : 1985 38 year oldMRN: [id number] Room:CT2/[address] Care Physician: PATIENT DOES NOT HAVE A PCPPre- HospitalPatient Escorted by: Self [9]Mode of Arrival: Personal means [1]EMS Treatment Prior to ED Arrival:CHART COLLECTOR treatment: NoneED EventsDate/Time Event User Pncsbcpm03/29/24 165 Medical Screening Begins JOCELYN TORREZ MD --11/07/231650 [...] received in last 5 years: UnknownChildhood immunizations: Ut-ic-oexdTjxn Surgical HistoryPast Surgical History:Procedure Laterality DateCHOLECYSTECTOMY 06/2007UMBILICAL HERNIORRHAPHY N/A 03/11/2017Surgeon: José Miguel Rene MD; [facility]iesAllergiesAllergen ReactionsLevaquin [Levofloxacin] Nausea and/or VomitingPcn [Penicillins] [...] (*) 0.01 - 0.07 10*3/uLCOMP. METABOLIC PANEL (01943) - AbnormalNA 138 135 - 145 mmol/LK [...] U/LAST(SGOT) 18 13 - 40 U/LeGFR 114.1 mL/min/1.26a9TAVYZPDTSE - AbnormalAPPEARANCE Clear ClearCOLOR Straw (*) YellowPH [...] PELVIS W CONTRASTCBC WITH DIFFCOMP. METABOLIC PANEL (06688)LIPASEURINALYSISBLOOD CULTURE SCREENBLOOD CULTURE SCREENLactic Acid Whole BloodLactic [...] 11/07/23Oct Transfer initiated [DN]ED Course User Index[DN] Jocelyn Torrez MDDiagnosis/Impression as of 11/07/239Lower abdominal painPostoperative infection, [...] gentamicin. The patient request to go to [facility]. She was accepted by Dr. Titus [...] medicationsNo medications on fileJocelyn Torrez Jr. MDClinical Textile Machinery Sales Representative ProfessorROOSEVELT GENERAL HOSPITAL Emergency DepartmentDragon Dictation Software is used frequently and may produce errors. Promptly contact for obvious discrepancies.Jocelyn oTrrez MD11/07/23 2246NeJocelyn bernardo MD11/07/23 2259 52750-3Agglgvmui Emergency department IyyvXN7211-65-59H41:59:11[facility] Emergency [facility] NoteTXT1.2.840.306464.1.13.104.2.7.2.7278 79|[id number] for patient awsy00638-8Nodtuggld department NoteLNNARRATIVEFormatted C-CDA narrative textUTGALLUP INDIAN MEDICAL [facility] - [address] Ad[id number] XMSCYGKYZUXHVKKTS3223-34-02G48:59:111.2.8 40.147772.1.72.3.15|1.2.840.853114.1.13.1 04.2.7.2.727879_[id number] [facility] 2023-10-23 09:10:00 [id number]Lu9X dalia MkCHst48gxZhqfPr8eglcrx5ra6TyY1dOac8398-0 09:10:00 [facility]Hospitalist Discharge SummaryREPORT#:[id number] REPORT STATUS: SignedREPORT INITIALIZATION DATE:10/23/23 TIME:909 PATIENT: MARIA DEL CARMEN RUIZ UNIT #: [id number]#: [id number] [address] [birth year] AGE: 38 SEX: F ATTEND: Mack Pack MDADM AUTHOR: Mack Pack MDREPT SERVICE DT/TIME: 10/23/23 09* ALL edits or amendments must be made on the electronic/computer document * General InformationDischarge date: 10/23/23Discharge diagnosis:# Pelvic pain with vaginal discharge-S/p hysterectomy 09/23/2022 complicated by infection x 2-Hospital course:# Pelvic pain with vaginal discharge-S/p hysterectomy 09/23/2022 complicated by infection x 2-ASSESSMENT NURSE PRACTITIONER Dr. Rodriguez has been consulted-Continue IV Zosyn [...] radial, R dorsalis pedis, L dorsalis pedis. Neuro/COMPUTER SYSTEMS TECHNICIAN: alert, oriented X 3, CNII-XII intactSkin: dry, intact, normal color, normal temperature, no rashPsychiatry: normal affect, normal mood Discharge Instructions PCPDischarge to: Home/Self CareAdditional Discharge Routines: PCP Follow-Up, Social Psychologist Follow-UpDiet: Resume Home Diet/FeedsDischarge management: greater than 30 mins Follow-up AppointmentsPCP follow-up: PCP: Ashley Rodriguez MD PCP follow up timeframe: In 1-2 weeks at 5926 RPT #: [id number] OF REPORT DSDischarge bgtuima6564-01-89C27:10:00L.ZSOL21083096- 0036AVAvailable for patient clcaVDHTMMSTRLKTTX2711-63-21L29:59:48 [facility] 2023-10-22 14:21:00 [id number]mEcb Alexander IlFUVy+mEdbiidsHOzQ0S9bE774DalT0JGe1188-9 10-22T14:21:00 [facility]wayHospitalist Progress NoteREPORT#:[id number] REPORT STATUS: SignedREPORT INITIALIZATION DATE:10/22/23 TIME:1420 PATIENT: MARIA DEL CARMEN RUIZ UNIT #: [id number]#: [id number] [address] [birth year] AGE: 38 SEX: F ATTEND: Mack Pack MDA AUTHOR: Mary Ellen Chin MDREPT SERVICE DT/TIME: 10/22/231420* ALL edits or amendments must be made on the electronic/computer document * SubjectiveChief complaint:Pelvic pain and dischargeHPI:38-year-old female presents to the emergency department with complaints of lowerabdominal pain. She reports she had hysterectomy done on the of last month and then she started feeling this pelvic pain and bloody-mucoid discharge about 2-3 days ago. Patient was seen by her clinical staff anesthesiologist today and was sent over for further evaluation for concerns of possible pelvic abscess. Patient has been onantibiotics by her clinical staff anesthesiologist. CT A/P with no abnormal finding. Patient [...] radial, R dorsalis pedis, L dorsalis pedis. Neuro/COMPUTER SYSTEMS TECHNICIAN: alert, oriented X 3, CNII-XII intactSkin: dry, [...] (Auto) (20.5 - 51.1 %) 33.7 34.0 Chase % (Auto) (1.7 - 9.3 %) 10.1 H 9.4 H Eos % (Auto) (0.0 - 6.0 %) 5.2 3.1 Baso % (Auto) (0.0 - 2.0 %) 0.8 0.8 Neut # (Auto) (1.8 - 7.6 K/mm3) 4.3 4.8 Lymph # (Auto) (0.6 - 3.2 K/mm3) 2.9 3.1 Chase # (Auto) (0.3 - 1.1 K/mm3) 0.9 [...] - 7.0 pH UNITS) 6.0 Ur Specific [place] (1.005 - 1.030 SG) <=1.005 Urine Protein [...] discharge-S/p hysterectomy 09/23/2022 complicated by infection x 2-ASSESSMENT NURSE PRACTITIONER Dr. Rodriguez has been consulted-Continue IV Zosyn antibiotic for empirical coverage-Pain management with as needed morphine-Further management per Dr. Rodriguez DVT prophylaxis: SCDsGI prophylaxis: PEPCIDDisposition Anticipated: Home with family support. Time Spent on Patient Care, Coordination and Counselin min. Code Status: Full code. at 1423 RPT #: [id number] OF REPORT PRProgress xcue6646-52-73S53:21:00L.APOX47847749-719 1AVAvailable for patient rozjRYGVJHECZWCASV0252-90-74N37:23:38 [facility] 2023-10-21 21:20:00 [id number]+eIsKkKL8XwRmwTGBCy5Dd0eF s fagS/AQGFlS5WHxS4sJRILCMukjFCXK/Xth2219-2 10-21T21:20:00 [facility] ([facility])Hospitalist History PhysicalREPORT#:[id number] REPORT STATUS: SignedREPORT INITIALIZATION DATE:10/21/23 TIME:2119 PATIENT: MARIA DEL CARMEN RUIZ UNIT #: [id number]#: [id number] [address]: [address] AGE: 38 SEX: F ATTEND: Mack Pack AUTHOR: Jacy Quick I APRNNPREPT SERVICE DT/TIME: [...] days ago. Patient was seen by her clinical staff anesthesiologist today and was sent over for further evaluation for concerns of possible pelvic abscess. Patient has been onantibiotics by her clinical staff anesthesiologist. CT A/P with no abnormal finding. Patient [...] Sodium Chloride (0.9% Sodium Chloride) 1,000 ML .G52A14S IV Tramadol HCl (ULTRAM) 50 MG Q6H [...] radial, R dorsalis pedis, L dorsalis pedis. Neuro/COMPUTER SYSTEMS TECHNICIAN: alert, oriented X 3, CNII-XII intactSkin: dry, [...] % (Auto) (20.5 - 51.1 %) 34.0 Chase % (Auto) (1.7 - 9.3 %) 9.4 H Eos % (Auto) (0.0 - 6.0 %) 3.1 Baso % (Auto) (0.0 - 2.0 %) 0.8 Neut # (Auto) (1.8 - 7.6 K/mm3) 4.8 Lymph # (Auto) (0.6 - 3.2 K/mm3) 3.1 Chase # (Auto) (0.3 - 1.1 K/mm3) 0.9 [...] - 7.0 pH UNITS) 6.0 Ur Specific [place] (1.005 - 1.030 SG) <=1.005 Urine Protein [...] Pelvic pain with vaginal discharge- possible pelvic infection-ASSESSMENT NURSE PRACTITIONER Dr. Rodriguez has been consulted-Continue IV Zosyn [...] Staff at 1231 at 1301 RPT #: [id number] OF REPORT HPHistory and physical tdtaqruwqtg8051-77-58Q17:20:00L.OEZV98723 212-0277AVAvailable for patient zyhgWGRTWUFGHACPZR4548-52-84A99:31:42 [facility] 2023-10-21 17:54:00 [id number]Xr b y6hnyzc/IttZcQm2b0BFR55EddK2tGIugg/7:54:00 [facility]wayEMERGENCY PROVIDER REPORTREPORT#:[id number] REPORT STATUS: SignedDATE:10/21/23 TIME:1753 PATIENT: MARIA DEL CARMEN RUIZ UNIT #: [id number]#: [id number] [facility] AGE: 38 SEX: F PCP PHYS: Ashley Rodriguez AUTHOR: Joe Torres SECOND CUTTER * ALL edits or amendments must be made on the electronic/computer document * Joe Torres 10/21/231753:HPI-Abd Pain F 40 and Over Free Text HPI NotesFree Text HPI Otwgp04-yzcn-wgc female presents to the emergency department with complaints of lowerabdominal pain. Patient was seen by her clinical staff anesthesiologist today and was sent over for further evaluation for concerns of possible pelvic abscess. Patient has been on antibiotics by her clinical staff anesthesiologist. Patient also reports vaginal discharge. GeneralConfirmed Patient [...] Documented: Result Date Time Pulse Ox 100 10/210 B/P 133/93 10/21 1700 B/P Mean 106 10/21 1700 O2 Delivery Room air 10/21 1699 Temp 37.2 10/21 1699 Pulse 103 10/21 1699 Resp 10/21 Last Documented: Result Date Time Pulse Ox 100 10/21 1700 B/P 133/93 10/210 B/P Mean 106 10/21 1700 O2 Delivery Room air 10/21 1699 Temp 37.2 10/21 1699 Pulse 103 10/21 170 Resp 17 10/21 1699 Review of Vital [...] % (Auto) (20.5 - 51.1 %) 34.0 Chase % (Auto) (1.7 - 9.3 %) 9.4 H Eos % (Auto) (0.0 - 6.0 %) 3.1 Baso % (Auto) (0.0 - 2.0 %) 0.8 Neut # (Auto) (1.8 - 7.6 K/mm3) 4.8 Lymph # (Auto) (0.6 - 3.2 K/mm3) 3.1 Chase # (Auto) (0.3 - 1.1 K/mm3) 0.9 [...] - 7.0 pH UNITS) 6.0 Ur Specific [place] (1.005 - 1.030 SG) <=1.005 Urine Protein [...] note ConsultationConsultation Referral/Consult Name Ashley Rodriguez MD Social Psychologist Called ASSESSMENT NURSE PRACTITIONER Social Psychologist Discussed with inbound sales consultant, Will see patient Requested Call Date [...] ImpressionClinical ImpressionPrimary Impression: Abdominal pain [facility] Name Mack Pack MD [facility] Physician Hospitalist Request Time 1928 Request Date [...] Wei Hyman 10/21/23 183:[facility] MedicationsDiscontinued Reported MedicationsTIRZEPATIDE (MOUNJARO PEN (2mL)) 10 [...] care. at 0027 at 0813 RPT #: [id number] OF REPORTEDEmergency department pgxsrg1838-07-47P43:54:00L.EKXQ68983243-6 246AVAvailable for patient mvbmJYYGACKJRTBAQF1647-35-50Q59:28:15 [facility] 2023-09-23 19:46:00 [id number]+R6xu J ul+4CjjrnYfyuiZU4hVy+SAv6EWfF08c2360676-6 9:46:597435-[address] [address] PATIENT NAME: MARIA DEL CARMEN RUIZ ADMIT DATE: 09/23/23ACCOUNT NO: [id number] ROOM NO: AGE: 38 REPORT TYPE: OPERATIVE [...] pelvic cavity, cystoscopy. SURGEON: Ashley Rodriguez MD PERSONAL PROPERTY APPRAISER: Joe Pettit. ANESTHESIA: General endotracheal. FINDINGS: Anterior [...] Dictated: 09/23/2023 19:46:56Date Transcribed: 09/23/2023 22:13:34DUNIA/EMELIA/DALIA/Waldemar #: [id number] ID: [id number] by Ashley Rodriguez MD On 10/21/2023 05:24:23 PM at 0524 PATIENT NAME: MARIA DEL CARMEN RUIZ rgyyxf8027-75-53I57:13:00L.QTX22584329-71 01AVAvailable for patient gjewMUBZVEYDSAPKVQ7028-28-78B93:25:02 [facility] 2023-09-23 18:56:00 [id number]+BRlSEFBvO1laVej + UYTaOevZet4Ket8wQIecPVl95R/gru1BZYF0141-7 8:56:00 [facility] ParkwayBrief Op NoteREPORT#:[id number] REPORT STATUS: SignedREPORT INITIALIZATION DATE:09/23/23 TIME:1855 PATIENT: MARIA DEL CARMEN RUIZ UNIT #: [id number]#: [id number] ROOM/BED:: 85 AGE: 37 SEX: F ATTEND: Ashley Rodriguez MDADM AUTHOR: sAhley Rodriguez MDREPT SERVICE DT/TIME: 09/23/231855* ALL edits [...] count: correct Needle count: correct at [address] [facility] #: [id number] OF REPORT OPOperative xmchaq0290-35-09J32:56:00L.ZHWY94101900-0 199AVAvailable for patient xlbqOIJFQWMHTGEQOG4804-39-32I80:14:52 [facility]
--- NOTE | 2023-12-13 15:58 | RAD REPORT ---
EXAM DESCRIPTION: RAD - Chest Single View - 12/13/2023 3:50 pm CLINICAL HISTORY: right arm PICC line COMPARISON: Chest Single View dated 12/03/2023; Chest Single View dated 11/21/2023; Chest Single View dated 11/20/2023; Chest Single View dated 09/24/2023 FINDINGS: Lines: Right subclavian approach PICC with tip overlying the mid SVC. Left subclavian appr oach PICC with tip overlying the distal SVC . Lungs: No evidence of edema or pneumonia. Pleural: No significant pleural effusions or pneumothorax. Cardiac: The heart size is within normal limits. Mediastinum: Within normal limits. Bones: No acute fractures. Other: None IMPRESSION: No acute cardiopulmonary disease. The right and left PICC tips are in satisfactory posit ion .
[2023-12-13] MEDS ORDERED: IBUPROFEN 400 MG TAB ONE (16:38)
[2023-12-13] MEDS ORDERED: IBUPROFEN 200 MG TAB PO ONE (16:38)
[2023-12-13 16:44] LABS: Absolute Basophils 0.1 K/uL (0-0.5); Absolute Monocytes 0.7 K/uL (0.1-1.3); Absolute Neutrophil 2.9 K/uL (1.8-8.0); Basophils % 2.1 % (0-1.3); Eosinophils % 0.8 % (0-4.4); Hematocrit 34.1 % (36.0-45.0); Hemoglobin 11.7 g/dL (12.0-15.0); Lymphocytes % 34.2 % (15.3-44.8); MCH 30.3 pg (27.0-35.0); MCHC 34.2 g/dL (32.0-36.0); MCV 88.5 fL (80-100); MPV 7.9 fL (7.6-11.3); Monocytes % 12.1 % (3.3-12.3); Neutrophils % 50.8 % (41.7-73.7); Platelets 367 thou/uL (152-406); RBC Red Blood Cell Count 3.86 M/uL (3.86-4.86); Red Cell Distribution Width 13.3 % (12.1-15.2)
[2023-12-13 16:51] LABS: PT Prothrombin Time 12.8 SECONDS (9.5-12.5); PTT, Activated Partial Thromb 25.8 SECONDS (24.3-36.9); Protime INR 1.17
--- NOTE | 2023-12-13 16:53 | RAD REPORT ---
EXAM DESCRIPTION: US - UPPER EXTREMITY VENOUS UNILATE - 12/13/2023 4:38 pm CLINICAL HISTORY: Pain COMPARISON: None. TECHNIQUE: Real-time sonographic evaluation of the right upper extremity deep venous system was perf ormed. FINDINGS: Normal compressibility, flow augmentation, phasic flow and spontaneous flow is identified in the right upper extremity deep venous system. No intraluminal filling defects seen. IMPRESSION: No DVT in the right upper extremity.
[2023-12-13 16:58] LABS: Anion Gap 9.4 mEq/L (5.0-15.0); Potassium 3.4 mEq/L (3.5-5.1)
[2023-12-13] MEDS ORDERED: FENTANYL CITR 100 MCG/2 ML ONE (17:20)
--- NOTE | 2023-12-13 18:30 | RAD REPORT ---
EXAM DESCRIPTION: RAD - Chest Single View - 12/13/2023 6:19 pm CLINICAL HISTORY: right arm picc line removed COMPARISON: Chest Single View dated 12/13/2023; Chest Single View dated 12/03/2023; Chest Single View d ated 11/21/2023; Chest Single View dated 11/20/2023 FINDINGS: Lines: The right subclavian approach PICC has been removed. The left PICC terminates in si milar positioning at the SVC. Lungs: No evidence of edema or pneumonia. Pleural: No significant pleural effusions or pneumothorax. Cardiac: The heart size is within normal limits. Mediastinum: Within normal limits. Bones: No acute fractures. Other: None IMPRESSION: No acute cardiopulmonary disease. Right-sided PICC removed. Left-sided PICC in similar p osition.
--- NOTE | 2023-12-13 18:36 | ER ---
Nurse's Notes [facility] Name: Maira Del Carmen Stokes Age: 38 yrs Sex: Female : 1985 Arrival Date: 12/13/2023 Time: 13:57 Bed 12 Private MD: Dion Montalvo Diagnosis: Other infection due to central venous catheter, initial encounter-right arm PICC line Presentation: 12/12 14:17 Chief complaint: Sent by Dr. Rodriguez for eval of RUE PICC, reports redness at redness hb at insertion site. Coronavirus screen: At this time, the client does not indicate any symptoms associated with coronavirus-19. Ebola Screen: No symptoms or risks identified at this time. Initial Sepsis Screen: Does the patient meet any 2 criteria? No. Patient's initial sepsis screen is negative. Does the patient have a suspected source of infection? No. Patient's initial sepsis screen is negative. Risk Assessment: Do you want to hurt yourself or someone else? Patient reports no desire to harm self or others. Onset of symptoms was December 13, 2023. 14:17 Method Of Arrival: Ambulatory hb 14:17 Acuity: WILLIS 3 hb Triage Assessment: 14:22 General: Appears in no apparent distress. Behavior is calm, cooperative. Pain: Pain hb currently is 2 out of 10 on a pain scale. Neuro: Level of Consciousness is awake, alert, obeys commands, Oriented to person, place, time, situation. Cardiovascular: Patient's skin is warm and dry. Respiratory: Respiratory effort is even, unlabored, Respiratory pattern is regular, symmetrical. RECREATIONAL COUNSELOR: 14:22 LMP N/A - Hysterectomy, Not hb Historical: - Allergies: 14:22 Codeine; hb 14:22 Levaquin; hb 14:22 PENICILLINS; hb 14:22 Tramadol HCl; hb - PMHx: 14:22 ADD/ADHD; hb - PSHx: 14:22 Cholecystectomy; hernia; Total abdominal hysterectomy; hb - Immunization history:: Adult Immunizations up to date. - Infectious Disease History:: Denies. - Social history:: Smoking status: Patient denies any tobacco usage or history of. Screenin:56 [facility] ED Fall Risk Assessment (Adult) History of falling in the last 3 months, nj1 including since admission No falls in past 3 months (0 pts) Confusion or Disorientation No (0 pts) Intoxicated or Sedated No (0 pts) Impaired Gait No (0 pts) Mobility Assist Device Used No (0 pt) Altered Elimination No (0 pt) Score/Fall Risk Level 0 - 2 = Low Risk Oriented to surroundings, Maintained a safe environment, Hourly rounding (assess needs \T\ fall precautionary measures) done. Abuse screen: Denies threats or abuse. Denies injuries from another. Nutritional screening: No deficits noted. Tuberculosis screening: No symptoms or risk factors identified. Assessment: 14:40 Reassessment:. hb 15:01 Reassessment: Dynamic Access at bedside for PICC placement. hb 15:40 General: Appears in no apparent distress. comfortable, Behavior is calm, cooperative, nj1 appropriate for age. Neuro: Level of Consciousness is awake, alert, obeys commands, Oriented to person, place, time, situation. 15:40 Cardiovascular: Patient's skin is warm and dry. Cardiovascular: PICC line to right and nj1 left arm.. Respiratory: Airway is patent Respiratory effort is even, unlabored. 16:06 Reassessment: ok to use left PICC per Dr. Hickman. hb 17:20 Reassessment: Patient appears in no apparent distress at this time. Patient and/or nj1 family updated on plan of care and expected duration. Pain level reassessed. Patient is alert, oriented x 3, equal unlabored respirations, skin warm/dry/pink. 18:30 Reassessment: Patient appears in no apparent distress at this time. Patient and/or nj1 family updated on plan of care and expected duration. Pain level reassessed. Patient is alert, oriented x 3, equal unlabored respirations, skin warm/dry/pink. Vital Signs: 14:17 BP 122 / 93; Pulse 89; Resp 16; Temp 98.4(O); Pulse Ox 100% on R/A; Weight 58.97 kg; hb Height 5 ft. 2 in. ; Pain 2/10; 18:36 BP 139 / 111; Pulse 86; Resp 16; Temp 97.9(TE); Pulse Ox 99% on R/A; nj1 14:17 Body Mass Index 23.78 (58.97 kg, 157.48 cm) hb 14:17 Pain Scale: Adult hb ED Course: 13:59 Patient arrived in ED. 14:00 Dion Montalvo MD is Private Physician. mr 14:12 Blu Davis PA is PHCP. cp 14:12 Constantine Hickman MD is Attending Physician. cp 14:22 Triage completed. hb 14:22 Arm band placed on. hb 14:40 Accessed PICC line. Site reddened. No blood return. Flushes easily. hb 15:30 Vero York, RN is Primary Nurse. nj1 15:40 Radiology exam delayed due to patient is not appropriately dressed for the exam at this az time. 15:52 XRAY Chest (1 view) In Process Unspecified. EDMS 15:57 Patient has correct armband on for positive identification. Bed in low position. Call nj1 light in reach. Adult w/ patient. Provided Education on: call light, fall precautions. 16:40 UPPER EXTREMITY VENOUS UNILATE In Process Unspecified. EDMS 18:21 XRAY Chest (1 view) In Process Unspecified. EDMS 18:36 Notified Nurse Practitioner and/or Physician Roller Hand of vital signs. Headache. nj1 18:39 No provider procedures requiring assistance completed. Left arm PICC present, discharge nj1 home with it per ED provider. Right arm PICC removed earlier by Makeda KEVIN. Dressing in place, no bleeding noted. Administered Medications: 16:45 Drug: Ibuprofen PO 600 mg PO once Route: PO; nj1 17:20 Follow up: Response: No adverse reaction; Pain is unchanged, physician notified nj1 17:23 Drug: fentaNYL (PF) IVP 25 mcg IVP once Route: IVP; Site: PICC; nj1 18:36 Follow up: Response: No adverse reaction; Pain is unchanged, physician notified nj1 18:46 Drug: Potassium PO Effervescent Tablet 25 mEq PO once; dissolve in 4 ounces of water or nj1 juice Route: PO; Medication: 18:47 VIS not applicable for this client. nj1 Outcome: 18:35 Discharge ordered by . cp 18:46 Discharged to home ambulatory, with significant other, nj1 18:46 Condition: stable 18:46 Discharge instructions given to patient, Instructed on discharge instructions, follow up and referral plans. Demonstrated understanding of instructions, follow-up care, 18:47 Patient left the ED. nj1 Signatures: Dispatcher [employer] EDDC Jory Major, Reg Reg mr Blu Davis PA PA cp Baxter, Heather, BLAYNE RN Leida Jasmine Norma, BLAYNE RN nj1 Corrections: (The following items were deleted from the chart) 14:22 14:17 BP 122 / 93; Pulse 89bpm; Resp 16bpm; Pulse Ox 100% RA; Temp 98.4F Oral; Pain hb 2/10, Adult; hb 18:47 18:36 BP 139 / 111; Pulse 86bpm; Resp 16bpm; Pulse Ox 99% RA; nj1 nj1
--- NOTE | 2023-12-13 18:36 | EDPHYS ---
Physician Documentation [facility] Name: Maria Del Carmen Stokes Age: 38 yrs Sex: Female : 1985 Arrival Date: 12/13/2023 Time: 13:57 Bed 12 Private MD: Dion Montalvo ED Physician Constantine Hickman HPI: 12/12 14:35 This 38 yrs old Female presents to ER via Ambulatory with complaints of PICC Problem. cp 14:35 The patient or guardian complains of evaluation of PICC line. cp 14:35 The complaints affect the right upper arm. Associated signs and symptoms: Pertinent cp positives: erythema, pain, of the area around PICC line, Pertinent negatives: decreased range of motion, fever, numbness. Severity of symptoms: in the emergency department the symptoms are unchanged, despite home interventions. Patient reports she is currently receiving IV Vancomycin through right upper extremity PICC line for past 3 weeks. Instructed to have PICC line evaluated in ED due to concern for infection. Patient reports noticing discharge yesterday from insertion site. 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 - Infectious Disease History:: Denies. - Social history:: Smoking status: Patient denies any tobacco usage or history of. ROS: 14:40 MS/extremity: Positive for history of right upper arm PICC line placement about 3 weeks cp ago, 14:40 Constitutional: Negative for body aches, chills, fever, poor PO intake, cp 14:40 Cardiovascular: Negative for chest pain, 14:40 Respiratory: Negative for cough, shortness of breath, wheezing, 14:40 Abdomen/GI: Negative for abdominal pain, nausea, vomiting, and diarrhea, 14:40 Neuro: Negative for altered mental status, headache, weakness, 14:40 All other systems are negative, Exam: 14:45 Constitutional: The patient appears in no acute distress, alert, awake, non-toxic, well cp developed, well nourished, anxious, 14:45 Head/Face: Normocephalic, atraumatic. cp 14:45 Eyes: Periorbital structures: appear normal, Conjunctiva: normal, no exudate, no injection, Sclera: no appreciated abnormality, Lids and lashes: appear normal, bilaterally, 14:45 ENT: External ear(s): are unremarkable, Nose: is normal, Mouth: Lips: moist, Oral mucosa: pink and intact, moist, Posterior pharynx: is normal, airway is patent, no erythema, no exudate, 14:45 Chest/axilla: Inspection: normal, 14:45 Cardiovascular: Rate: normal, Rhythm: regular, 14:45 Respiratory: the patient does not display signs of respiratory distress, Respirations: normal, no use of accessory muscles, no retractions, labored breathing, is not present, Breath sounds: are clear throughout, no decreased breath sounds, no stridor, no wheezing, 14:45 Abdomen/GI: Exam negative for discomfort, distension, guarding, Inspection: abdomen appears normal, 14:45 Musculoskeletal/extremity: Extremities: noted in the right upper arm: PICC line placed and surrounding area with minimal erythema, tender to palpation, minimal swelling and no drainage expressed, Vital Signs: 14:17 BP 122 / 93; Pulse 89; Resp 16; Temp 98.4(O); Pulse Ox 100% on R/A; Weight 58.97 kg; hb Height 5 ft. 2 in. ; Pain 2/10; 18:36 BP 139 / 111; Pulse 86; Resp 16; Temp 97.9(TE); Pulse Ox 99% on R/A; nj1 14:17 Body Mass Index 23.78 (58.97 kg, 157.48 cm) hb 14:17 Pain Scale: Adult hb MDM: 14:12 Patient medically screened. cp 18:35 Data reviewed: vital signs, nurses notes, lab test result(s), radiologic studies, plain cp films, ultrasound, and as a result, I will discharge patient. 18:35 Differential diagnosis: cellulitis, DVT, abscess, sepsis. I considered the following cp discharge prescriptions or medication management in the emergency department Medications were administered in the Emergency Department. See MAR. Counseling: I had a detailed discussion with the patient and/or guardian regarding the historical points, exam findings, and any diagnostic results supporting the discharge/admit diagnosis, lab results, radiology results, the need for outpatient follow up, a family practitioner, to return to the emergency department if symptoms worsen or persist or if there are any questions or concerns that arise at home. ED course: PICC line removed by me and nurse placed new PICC line left upper arm. 12/12 14:28 Order name: CBC with Diff; Complete Time: 17:12 cp 12/12 14:28 Order name: BMP; Complete Time: 17:12 cp 12/12 14:28 Order name: PT-INR; Complete Time: 17:12 cp 12/12 14:28 Order name: Ptt, Activated; Complete Time: 17:12 cp 12/12 14:28 Order name: Lactate w/ 2H reflex if indic.; Complete Time: 17:12 cp 12/12 14:28 Order name: Blood Culture Adult (2) cp 12/12 14:28 Order name: XRAY Chest (1 view); Complete Time: 17:12 cp 12/12 14:38 Order name: UPPER EXTREMITY VENOUS UNILATE; Complete Time: 17:12 EDMS 12/12 17:44 Order name: XRAY Chest (1 view); Complete Time: 18:31 cp 12/12 18:32 Interpretation: Report review. cp Administered Medications: 16:45 Drug: Ibuprofen PO 600 mg PO once Route: PO; nj1 17:20 Follow up: Response: No adverse reaction; Pain is unchanged, physician notified nj1 17:23 Drug: fentaNYL (PF) IVP 25 mcg IVP once Route: IVP; Site: PICC; nj1 18:36 Follow up: Response: No adverse reaction; Pain is unchanged, physician notified nj1 18:46 Drug: Potassium PO Effervescent Tablet 25 mEq PO once; dissolve in 4 ounces of water or nj1 juice Route: PO; Disposition Summary: 12/13/23 18:35 Discharge Ordered Notes: Location: Home cp Problem: new cp Symptoms: have improved cp Condition: Stable cp Diagnosis - Other infection due to central venous catheter, initial encounter - right arm PICC cp line Followup: cp - With: Private Physician - When: 2 - 3 days - Reason: Recheck today's complaints Discharge Instructions: - Discharge Summary Sheet cp - PICC Home Care Guide cp - PICC Removal, Adult cp - PICC Insertion cp Forms: - Medication Reconciliation Form cp - Thank You Letter cp - Antibiotic Education cp - Prescription Opioid Use cp - Patient Portal Instructions cp - Leadership Thank You Letter cp Signatures: Dispatcher [employer] EDMS Constantine Hickman MD MD rn Blu Davis PA PA cp Cristina Falcon, RN RN Vero York RN RN nj1 Corrections: (The following items were deleted from the chart) 14:28 14:28 CBC+H.LAB.BRZ ordered. EDMS EDMS 14:28 14:28 BASIC METABOLIC PANEL+C.LAB.BRZ ordered. EDMS EDMS 14:28 14:28 PROTIME (+INR)+COAG.LAB.BRZ ordered. EDMS EDMS 14:28 14:28 PTT, ACTIVATED+COAG.LAB.BRZ ordered. EDMS EDMS 14:28 14:28 LACTATE+C.LAB.BRZ ordered. EDMS EDMS 14:28 14:28 BLOOD CULTURE*+BA.LAB.BRZ ordered. EDMS EDMS 14:38 14:28 Extremity Venous Uni Ltd+US.RAD.BRZ ordered. EDMS EDMS 15:52 15:29 Chest Single View+RAD.RAD.BRZ ordered. EDMS EDMS 12/13 18:28 12/12 14:35 The patient or guardian complains of evaluation of PICC line, cp cp 12/13 18:28 12/12 14:35 Patient reports she is currently receiving IV Vancomycin through right cp upper extremity PICC line for past 3 weeks. Instructed to have PICC line evaluated in ED due to concern for infection. cp
[2023-12-13] MEDS ORDERED: POTASSIUM 25 MEQ EFFERV TAB ONE (18:37)
[2023-12-13 21:07] VITALS: BP 139/111; TEMP 97.9; O2SAT 99
== END 2023-12-13 18:47 | disposition home or self-care (01) ==
LOC: ER 13:57
DX: T80.218A Other infection due to central venous catheter, initial encounter (principal); Z88.0 Allergy status to penicillin; Z88.1 Allergy status to other antibiotic agents; Z88.5 Allergy status to narcotic agent
CPT/HCPCS: 87040 ×2; 85025; 80048; 36415; 85610; 83605; 85730; 71045 ×2; 93971; 96374; 99284; J3010

== ENCOUNTER 2023-12-31 11:39 | Emergency (ER) | payer BC ==
--- OUTSIDE RECORDS SUMMARY | 2023-12-31 11:44 | XMS REPORT | Continuity of Care Document ---
Author Name Unknown Address [address] [facility] [place] [address] [facility] Address [address] [facility] [place] [address] Care Team Providers Care Qualitative Executive Researcher Name Role Phone PCP, PATIENT DOES NOT HAVE A Primary Care Physic abbi Unavailable GC_GCBZW_Crystala_S Attending Clinician UnavailAshley Henriquez Attending Clinician Unavaila Jennifer Gore Attending Clinician Unavailable JOCELYN TORREZ Attending Clinician Unavailable Jocelyn Torrez MD Attending Clinician [phone] Mack Pack Attending Clinician Unavailable MOY SAVAGE Attending Clinician UnavailMOY Garcia Attending Clinician UnavailGAYLE Su Attending Clinician Unavailable Hinojosa PAC, Gayle S Attending Clinician [phone] Doctor Unassigned, [place] Attending Clinician U navailable GC_GCBZW_Kadamiyala_S Admitting Clinician Ashley Jane Admitting Clinician UnavailJennifer Latham Admitting Clinician Unavailable JOCELYN TORREZ Admitting Clinician Unavailable Mack Pack Admitting Clinician Unavailable Payers Payer Name Policy Type Policy Number Effective Date Expirati on Date Source [place] [id number] 2019 00:00:00 [place] OUT OF [place] [id number] 2008 00:00:00 [facility] [id number] 2022 00:00:00 2023 00:00:00 Problems Condition Name Condition Details Condition Category Status Onset Date Resolution Date Last Treatment Date Treating Clinician Comments Source Vomiting Vomiting Problem Active 4-09 00:00: 00 [facility] Nausea and vomiting Nausea and Vomiting Problem Active 4-03 00:00: 00 [facility] Candidiasi s of vagina Candidiasi s of [...] Ovary Problem Active 2022-09 0-10 00:00: 00 [facility] Acute postoperat carina abdominal pain Acute postoperat carina abdominal pain Disease Active 0 7-03 00:00: 00 [facility] Migraines Migraines Disease Active 10-30 00:00: 00 [facility] Tobacco use disorder Tobacco use disorder Disease Active 10-30 00:00: 00 [facility] Allergies, Adverse Reactions, Alerts Allergy Name Allergy Type Status Severity Reaction(s) Onset Date Inactive Date Treating Clinician Comments Source LEVOFLOX ACIN DRUG INGREDI Active N/V 00:00: 00 [facility] Levoflox acin Propensi ty to adverse reaction s Active Nausea and/or Vomiting 00:00: 00 [facility] Penicill ins DA Active HI RSAH 2- 00:00: 00 [facility] levoflox acin DA Active U THROAT SWELLING 2 00:00: 00 [facility] Penicill ins DA Active SV HIVES 1- 00:00: 00 [facility] codeine DA Active MO VOMITING 1- 00:00: 00 [facility] acetamin ophen DA Active MO VOMITING 1- 00:00: 00 [facility] tramadol DA Active MO VOMITING 1- 00:00: 00 [facility] levoflox acin DA Active MO VOMITING 09-20 00:00: 00 [facility] Penicill ins Propensi ty to adverse reaction s Active Itching 10-30 00:00: 00 [facility] PENICILL INS Drug Class Active ITCHING 10-30 00:00: 00 [facility] Penicill ins Propensi ty to adverse reaction s Active Itching 10-30 00:00: 00 [facility] No Known Drug Intolera nces DA Active U - 00:00: 00 [facility] LICORICE DA Active U 02-06 00:00: 00 [facility] RASPBERR IES DA Active U 02-06 00:00: 00 [facility] No Known Contrast Allergie s DA Active U 02-06 00:00: 00 [facility] No Known Drug Allergie s DA Active U 02-06 00:00: 00 [facility] No Known Other Allergie s DA Active U 02-06 00:00: 00 [facility] PENICILL INS Allergy to substanc e Active [facility] Tramadol Allergy to substanc e Active Nausea [facility] Levoflox acin Allergy to substanc e Active Vomiting [facility] Social History Social Habit Start Date Stop Date Quantity Comments Source Exposure to SARS-CoV-2 (event) Not sure [facility] History of tobacco use Cigarette Smoker [facility] Sexual orientation U [facility] History of Social function 2020-06-06 00:00:00 2020-06-06 00:00:00 [facility] Alcohol intake 2020-06-06 00:00:00 2020-06-06 00:00:00 Current drinker of alcohol (finding) [facility] Alcohol Comment 2013-10-30 00:00:00 2013-10-30 00:00:00 occasionally [facility] Cigarettes smoked current (pack per day) - Reported 2013-10-30 00:00:00 2013-10-30 00:00:00 [facility] Cigarette pack-years 2013-10-30 00:00:00 2013-10-30 00:00:00 [facility] Tobacco use and exposure 2013-10-30 00:00:00 2013-10-30 00:00:00 Smokeless tobacco non-user [facility] Sex Assigned At 1985 00:00:00 1985 00:00:00 [facility] Smoking Status Start Date Stop Date Source Former Smoker [facility] Smokes tobacco daily 2013-10-30 00:00:00 [facility] Medications Ordered Medication Name Filled Medication Name Start Date Stop Date Current Medication? Ordering Clinician Indication Dosage Frequency Signature (SIG) Comments Components Source ondansetron (ZOFRAN (PF)) injection 4 mg 11-07 05:15: 00 11-07 05:06 :00 No 4mg 4 mg, Slow IV Push, ONCE, 1 dose, On Adore 11/07/23 at 2315, BILL [facility] FENTanyl PF (SUBLIMAZE (PF)) injection 75 mcg 11-07 05:00: 00 11-07 04:57 :00 No 75ug 75 mcg, Slow IV Push, ONCE, 1 dose, On Adore 11/07/23 at 2300, STAT [facility] NaCl 0.9% (NS) bolus infusion 1,000 mL 11-07 03:45: 00 11-07 04:45 :00 No 1000mL at 999 mL/hr, 1,000 mL, IV Infusion, ONCE, 1 dose, On Adoer 11/07/23 at 2145, STAT [facility] morpHINE (4 mg/mL) injection 4 mg 11-07 03:30: 00 11-07 03:27 :00 No 4mg 4 mg, Slow IV Push, ONCE, 1 dose, On Adore 11/07/23 at 2130, STAT [facility] clindamycin in 5 % dextrose (CLEOCIN) [...] br>Restric kathrine use approved by: ED PROVIDER [facility] gentamicin 150 mg in NaCl 0.9% (NS) 11-07 02:45: 00 11-07 03:49 :00 No 150mg 150 mg, IV Piggyback, ONCE, 1 dose, On Adore 11/07/23 at 204, STAT
Re ason for Anti-Infec tive: Documented Infection< br>Documen kathrine Infection Site: Pelvic
Duration of Therapy: Other (see Comments) [facility] iopamidol (ISOVUE 370-500 mL) injection 100 mL 11-07 02:00: 00 11-07 02:00 :00 No [id number] 100mL 100 mL, Intravenou s, ONCE, 1 dose, On Adore 11/07/23 at 1999, Routine [facility] morpHINE (4 mg/mL) injection 4 mg 11-07 01:45: 00 11-07 01:35 :00 No 4mg 4 mg, Slow IV Push, ONCE, 1 dose, On Adroe 11/07/23 at 1945, STAT [facility] NaCl 0.9% (NS) bolus infusion 1,000 mL 11-07 00:15: 00 11-07 02:16 :00 No 1000mL at 999 mL/hr, 1,000 mL, IV Infusion, ONCE, 1 dose, On Adore 11/07/23 at 181, STAT [facility] FENTanyl PF (SUBLIMAZE (PF)) injection 75 mcg 11-07 00:15: 00 23:52 :00 No 75ug 75 mcg, Slow IV Push, ONCE, 1 dose, On Adore 11/07/23 at 1815, STAT [facility] ondansetron (ZOFRAN (PF)) injection 4 mg 11-07 00:15: 00 23:52 :00 No 4mg 4 mg, Slow IV Push, ONCE, 1 dose, On Adore 11/07/23 at 1815, BILL [facility] ibuprofen 600 mg tablet 2017-09 00:00: 00 Yes 600mg Take 1 tablet by mouth every 6 (six) hours as needed for Pain (scale 4-6). [facility] estradiol 0.01% (0.1 mg/gram) vaginal cream INSERT 0.5 GRAM VAGINALLY EVERY DAY AT BEDTIME estradiol 0.01% (0.1 mg/gram) vaginal cream INSERT 0.5 GRAM VAGINALLY EVERY DAY AT BEDTIME No estradiol 0.01% (0.1 mg/gram) vaginal cream INSERT 0.5 GRAM VAGINALLY EVERY DAY AT BEDTIME [facility] fluconazole 150 mg tablet TAKE 1 TABLET BY MOUTH ONE DAY A WEEK fluconazole 150 mg tablet TAKE 1 TABLET BY MOUTH ONE DAY A WEEK No fluconazol e 150 mg tablet TAKE 1 TABLET BY MOUTH ONE DAY A WEEK [facility] hydrocodone 10 mg-acetamin ophen 325 mg tablet TAKE ONE (1) TABLET(S) BY MOUTH EVERY TWELVE HOURS NEEDED FOR PAIN. hydrocodone 10 mg-acetamin ophen 325 mg tablet TAKE ONE (1) TABLET(S) BY MOUTH EVERY TWELVE HOURS NEEDED FOR PAIN. No hydrocodon e 10 mg-acetami nophen 325 mg tablet TAKE ONE (1) TABLET(S) BY MOUTH EVERY TWELVE HOURS NEEDED FOR PAIN. [facility] ibuprofen 800 mg tablet TAKE ONE (1) TABLET(S) BY MOUTH THREE TIMES A DAY NEEDED FOR PAIN. ibuprofen 800 mg tablet TAKE ONE (1) TABLET(S) BY MOUTH THREE TIMES A DAY NEEDED FOR PAIN. No ibuprofen 800 mg tablet TAKE ONE (1) TABLET(S) BY MOUTH THREE TIMES A DAY NEEDED FOR PAIN. [facility] Mounjaro 7.5 mg/0.5 mL subcutaneou s pen injector ADMINISTER 7.5 MG UNDER THE SKIN WEEKLY Mounjaro 7.5 mg/0.5 mL subcutaneou s pen injector ADMINISTER 7.5 MG UNDER THE SKIN WEEKLY No Mounjaro 7.5 mg/0.5 mL subcutaneo us pen injector ADMINISTER 7.5 MG UNDER THE SKIN WEEKLY [facility] mupirocin 2 % topical ointment APPLY TO NARES TWICE A DAY. mupirocin 2 % topical ointment APPLY TO NARES TWICE A DAY. No mupirocin 2 % topical ointment APPLY TO NARES TWICE A DAY. [facility] ondansetron 8 mg disintegrat ing tablet Place 1 tablet twice a day by translingua l route as needed for 20 days. as needed for nausea and/or vomiting ondansetron 8 mg disintegrat ing tablet Place 1 tablet twice a day by translingua l route as needed for 20 days. as needed for nausea and/or vomiting No 1 BID ondansetro n [address] tablet Place 1 tablet twice a day by translingu al route as needed for 20 days. as needed for nausea and/or vomiting [facility] sumatriptan 50 mg tablet TAKE ONE (1) TABLET(S) BY MOUTH NEEDED FOR MIGRAINE. sumatriptan 50 mg tablet TAKE ONE (1) TABLET(S) BY MOUTH NEEDED FOR MIGRAINE. No sumatripta n 50 mg tablet TAKE ONE (1) TABLET(S) BY MOUTH NEEDED FOR MIGRAINE. [facility] Tylenol 325 mg capsule Take as needed by oral route. Tylenol 325 mg capsule Take as needed by oral route. No Tylenol 325 mg capsule Take as needed by oral route. [facility] Immunizations Ordered Immunization Name Filled Immunization Name Date Status Comments Source Td 2012-10-10 00:00:00 Completed [facility] Td 2012-10-10 00:00:00 Completed [facility] Td 2012-10-10 00:00:00 Completed [facility] Td 2012-10-10 00:00:00 Completed [facility] Td 2012-10-10 00:00:00 Completed [facility] TD, NOS Unknown Completed [facility] Vital Signs Vital Name Observation Time Observation [...] Medical Heart rate 2023-11-08 06:15:00 85 /min [facility] Respiratory rate 2023-11-08 06:15:00 12 /min [facility] Oxygen saturation in Arterial blood by Pulse oximetry 2023-11-08 06:15:00 99 /min [facility] Systolic blood pressure 2023-11-08 06:00:00 109 mm[Hg] [facility] Diastolic blood pressure 2023-11-08 06:00:00 89 mm[Hg] [facility] Body temperature 2023-11-08 05:45:00 36.56 Berna [facility] Body height 2023-11-07 23:01:00 154.9 cm [facility] Body weight 2023-11-07 23:01:00 54.885 kg [facility] BMI 2023-11-07 23:01:00 22.86 kg/m2 [facility] BP Systolic 2023-11-07 00:00:00 110 mm[Hg] [...] Systolic blood pressure 2020-06-06 20:49:00 120 mm[Hg] [facility] Diastolic blood pressure 2020-06-06 20:49:00 85 mm[Hg] [facility] Heart rate 2020-06-06 20:49:00 86 /min [facility] Procedures Procedure Date / Time Performed Performing Clinician Source CT, abdomen + pelvis, w/wo contrast 2023-12-17 00:00:[address] [facility] [address], abdomen + pelvis, w/wo contrast 2023-11-29 00:00:[address] [facility] [address], abdomen + pelvis, w/wo contrast 2023-11-14 00:00:00 [facility] LACTIC ACID WHOLE BLOOD 2023-11-08 03:08:00 Do iglesia Torrez [facility] CT ABDOMEN PELVIS W CONTRAST 2023-11-08 01:01:00 Jocelyn Torrez [facility] LIPASE 2023-11-07 23:47:00 [facility] COMP. METABOLIC PANEL ([id number]) 2023-11-07 23:47:00 Jocelyn Torrez [facility] CBC WITH DIFF 2023-11-07 23:47:00 Jocelyn Torrez [facility] URINALYSIS 2023-11-07 23:47:00 [facility] CONSENT/REFUSAL FOR DIAGNOSIS AND TREATMENT 2023-11-07 22:49:54 Doctor Unassigned, Lyon [facility] Hysterectomy 2023-09-23 00:00:00 Guadalupe [facility] Hyster[facility] Biopsy 2023-08-09 00:00:00 [facility] XR HAND <3 VW RIGHT 2020-06-06 20:55:12 Gayle Hinojosa [facility] ASSIGNMENT OF BENEFITS 2020-06-06 20:30:19 Docto r Unassigned, Lyon [facility] DME/SUPPLY JUSTIFICATION 2020-05-29 05:01:00 Doc tor Unassigned, Lyon [facility] Hernia Repair 2014-09-09 00:00:00 [facility] Cholecystectomy (Gallbladder) 2006-09-09 00:00:00 [facility] Plan of Care Planned Activity Planned Date Details Comments Source Future Appointment 2024-01-07 11:45:00 Ashley noonan, Leela Bundy; [facility] [address], [place] [address] [facility] Encounters Start Date/Time End Date/Time Encounter Type Admission Type Attending Clinicians Care Facility Care Department Encounter ID Source 2023-12-17 00:00:00 2023-12-17 00:00:00 Ashley Rodriguez MD: [address], [place] [address] , Ph. [facility] - [facility]* [id number] [facility] 2023-12-13 00:00:00 2023-12-13 00:00:00 NEGAR MyrickP: [address], [place] [id number] , Ph. [facility] - [facility]* [id number] [facility] 2023-11-29 00:00:00 2023-11-29 00:00:00 Ashley Rodriguez MD: [address], [place] [id number] , Ph. GC_GCBZW_Ka diyala_S [facility] - [facility]* [id number] [facility] 2023-11-27 00:00:00 2023-11-27 00:00:00 Outpatient GC_GCBZW_Ka diyala_S [facility] [id number] [facility] 2023-11-20 00:00:00 2023-11-20 00:00:00 Ashley Rodriguez MD: [address], [place] [address] , Ph. GC_GCBZW_Ka diyala_S [facility] - GC_GCBZW_Kaylynn [facility]* [id number] [facility] 2023-11-20 00:00:00 2023-11-20 00:00:00 Ashley Rodriguez MD: [address], [place] [address] , Ph. [facility] - GC_GCBZW_Kaylynn marielle [place]* [id number] [facility] 2023-11-19 11:00:00 2023-11-19 11:00:00 Outpatient TORY TerrazasdamiAshley cruz [facility] [id number] [facility] 2023-11-18 00:00:00 2023-11-18 00:00:00 Outpatient GC_GCBZW_Ka diyala_S PRIV PRIV [id number] [facility] 2023-11-13 00:00:00 2023-11-13 00:00:00 Ashley Rodriguez MD: [address], [place] [phone] , Ph. GC_GCBZW_Nini allena_S [facility] - GC_GCBZW_Kaylynn marielle [place]* [id number] [facility] 2023-11-13 00:00:00 2023-11-13 00:00:00 Ashley Rodriguez MD: [address], [place] [phone] , Ph. [facility] - GC_GCBZW_Kaylynn marielle [place]* [id number] [facility] 2023-11-11 00:00:00 2023-11-11 00:00:00 Outpatient GC_GCBZW_Ka diyala_S [facility] [id number] [facility] 2023-11-08 03:21:00 2023-11-10 10:07:00 Inpatient Jennifer Cruz [facility] [id number] [facility] 2023-11-07 17:03:00 2023-11-08 00:37:00 Emergency X JOCELYN TORREZ [facility] ERT [id number] [facility] 2023-11-07 17:03:00 2023-11-08 00:37:00 Emergency Jocleyn Torrez [facility] [id number] [facility] 2023-11-07 00:00:00 2023-11-07 00:00:00 HERBERTH Galo: [address], [place] [address] , Ph. [facility] - GC_GCBZW_Kaylynn palomares [place]* [id number] [facility] 2023-11-07 00:00:00 2023-11-07 00:00:00 HERBERTH Galo: [address], [place] [phone] , Ph. [facility] - GC_GCBZW_Kaylynn marielle [place]* [id number] [facility] 2023-11-04 00:00:00 2023-11-04 00:00:00 Outpatient GC_GCBZW_Ka diyala_S [facility] [id number] [facility] 2023-10-30 00:00:00 2023-10-30 00:00:00 Ashley Rodriguez MD: [address], [place] [address] , Ph. [facility] - GC_GCBZW_Kaylynn palomares [place]* [id number] [facility] 2023-10-22 14:33:00 2023-10-23 10:25:00 Inpatient EM Mack Pack HCAPM MEDI.01 [id number] [facility] 2023-10-22 14:33:00 2023-10-23 10:25:00 Inpatient EM Mack Pack HCAPM MEDI.01 [id number] [facility] 2023-10-21 22:17:00 2023-10-21 22:17:00 Outpatient Mack Pack HCACL LABO [id number] [facility] 2023-10-21 22:17:00 2023-10-21 22:17:00 Outpatient Mack Pack HCACL LABO [id number] [facility] 2023-10-21 00:00:00 2023-10-21 00:00:00 Outpatient GC_GCBZW_Ka diyala_S PRIV PRIV [id number] [facility] 2023-10-21 00:00:00 2023-10-21 00:00:00 Mirta English, CHELSY: [address], [place] [address] , Ph. [facility] - GC_GCBZW_Kaylynn palomares [place]* [id number] [facility] 2023-09-30 00:00:00 2023-09-30 00:00:00 Outpatient GC_GCBZW_Ka diyala_S PRIV PRIV [id number] [facility] 2023-09-30 00:00:00 2023-09-30 00:00:00 NEGAR MyrickP: [address], [place] [address] , Ph. [facility] - GC_GCBZW_Kaylynn palomares [place]* [id number] [facility] 2023-09-23 12:27:00 2023-09-23 12:27:00 Outpatient TORY Ninitiffanyantonia Ashley [facility] [id number] [facility] 2023-09-20 00:00:00 2023-09-20 00:00:00 Outpatient GC_GCBZW_Ka diyala_S PRIV PRIV [id number] [facility] 2023-09-17 00:00:00 2023-09-17 00:00:00 Outpatient GC_GCBZW_Ka diyala_S PRIV PRIV [id number] [facility] 2023-09-13 00:00:00 2023-09-13 00:00:00 Outpatient GC_GCBZW_Ka diyala_S PRIV PRIV [id number] [facility] 2023-08-27 00:00:00 2023-08-27 00:00:00 Outpatient GC_GCBZW_Ka diyala_S PRIV PRIV [id number] [facility] 2023-08-09 00:00:00 2023-08-09 00:00:00 Outpatient GC_GCBZW_Ka diyala_S PRIV PRIV [id number] [facility] 2023-08-09 00:00:00 2023-08-09 00:00:00 Outpatient GC_GCBZW_Ka diyala_S PRIV PRIV [id number] [facility] 2023-06-19 00:00:00 2023-06-19 00:00:00 Outpatient GC_GCBZW_Ka diyala_S PRIV PRIV [id number] [facility] 2023-06-19 00:00:00 2023-06-19 00:00:00 Outpatient GC_GCBZW_Ka diyala_S PRIV PRIV [id number] [facility] 2023-06-19 00:00:00 2023-06-19 00:00:00 Outpatient GC_GCBZW_Ka diyala_S PRIV PRIV [id number] [facility] 2023-06-19 00:00:00 2023-06-19 00:00:00 Outpatient GC_GCBZW_Ka diyala_S PRIV PRIV [id number] [facility] 2023-06-18 00:00:00 2023-06-18 00:00:00 Outpatient GC_GCBZW_Ka diyala_S PRIV PRIV [id number] [facility] 2023-06-04 00:00:00 2023-06-04 00:00:00 Outpatient GC_GCBZW_Ka diyala_S PRIV PRIV [id number] [facility] 2022-08-23 13:30:00 2022-08-23 13:30:00 Outpatient MOY HERNANDEZ [facility] [id number] [facility] 2022-08-08 15:30:00 2022-08-08 15:30:00 Outpatient MOY HERNANDEZ [facility] [id number] [facility] 2020-06-13 16:15:00 2020-06-13 16:15:00 Outpatient R [facility] [id number] [facility] 2020-06-06 15:55:12 2020-06-06 23:59:00 Hospital Encounter [facility] Special laure [place] [id number] [facility] 2020-06-06 16:00:00 2020-06-06 16:00:00 Outpatient R [facility] [id number] [facility] 2020-06-06 15:34:00 2020-06-06 15:49:00 Office Visit [facility] Surgical Special laure [place] [id number] [facility] 2020-06-06 00:00:00 2020-06-06 00:00:00 Orders Only Doctor Unassigned, Lyon [facility] [id number] [facility] 2020-05-29 00:00:00 2020-05-29 00:00:00 Orders Only Doctor Unassigned, Lyon [facility] [id number] [facility] Results Test Description Test Time Test Comments Results Resul t Comments Source - CT ABD PELVIS W WO CONT 2023-11-19 14:37:00 [facility] : 1985 Sex: F Name: MARIA DEL CARMEN RUIZ : 1985 Age/S: 38 / F [address] [address] Unit #: [id number] Loc: [place] [address] Phys: Ashley Rodriguez MD Acct: [id number] Dis Date: Status: REG CLI PHONE #: [phone] Exam Date: 11/19/2023 1200 FAX #: Reason: PELVIC AND PERINEAL PAIN EXAMS: CPT: [id number] CT ABD PELVIS W WO CONT [id number] Location Code: S17 EXAMINATION: - CT ABD [...] Signed Report (CONTINUED) Name: MARIA DEL CARMEN RUIZland : 1985 Age/S: 38 / F [address] [facility] Unit #: [id number] Loc: [place] [address] Phys: Ashley Rodriguez MD Acct: [id number] Dis Date: Status: REG CLI PHONE #: [phone] Exam Date: 11/19/2023 1200 FAX #: Reason: PELVIC AND PERINEAL PAIN EXAMS: CPT: [id number] CT ABD PELVIS W WO CONT [id number] (Continued) No evidence of drainable fluid collection. [...] Shaikh CTDI: DLP: Trnscb Date/Time: 11/19/2023 (1437) [email or web address] Orig Print D/T: S: 11/19/2023 (0184) PAGE 2 Signed Report CBC W/AUTO [id number] 12:25:00* Test Item Value Reference Range Interpretation [...] code = PLTMR) NORMAL NORMAL infectious disease [id number] 11:01:00* Test Item Value Reference Range Interpretation [...] code = hortensia krusei) 0 ppm 10.500-32.000 [facility] Medicalinfectious disease [id number] 11:01:00* Test Item Value Reference Range Interpretation [...] ppm 10.500-32.000 hortensia glabrata (test code = hotrensia glabrata) 0 ppm 10.500-32.000 hortensia krusei (test code = hortensia krusei) 0 ppm 10.500-32.000 [facility] Medicalinfectious disease [id number] 11:01:00* Test Item Value Reference Range Interpretation [...] code = hortensia krusei) 0 ppm 10.500-32.000 [facility] Medicalinfectious disease [id number] 11:01:00* Test Item Value Reference Range Interpretation [...] code = hortensia krusei) 0 ppm 10.500-32.000 [facility]- CT ABD PELVIS [id number] 09:37:00 [facility] : 1985 Sex: F Patient Name: MARIA DEL CARMEN RUIZ Unit No: [id number] EXAMS: CPT CODE: [id number] CT ABD PELVIS W/CONT [id number] ABDOMEN AND PELVIS WITH CONTRAST: INDICATIONS:Pelvic abscess [...] aneurysm. No suspicious bony lesion. IMPRESSION: [facility] NAME: MARIA DEL CARMEN RUIZ Radiology Department PHYS: Steffany Alvarenag [address] : 1985 AGE: 38 SEX: F [facility] [place] [address] LOC: F.2600 A PHONE #: [phone] EXAM DATE: 11/08/2023 STATUS: ADM IN FAX #: [phone] RAD NO: Page 1 Signed Report 1 Patient Name: MARIA DEL CARMEN HANCOCK Unit No: [id number] EXAMS: CPT CODE: [id number] CT ABD PELVIS W/CONT 54222 (Continued) Status post hysterectomy. Some fluid strandings and mesenteric inflammations at the surgical site and at superior vaginal vault. No discrete walled off collection. at 0937 Reported and signed by: Barry Cook MD CC: Steffany Byrne MD; Ashley Rodriguez MD; Jennifer Salazar MD Technologist: Wei Ontiveros, RT, CT CTDI: 3.98 DLP: 193.93 Trnscrbd D/ (0937) t.CINTHYAR.VL4 [facility] NAME: MARIA DEL CARMEN RIUZ Radiology Department PHYS: Steffany Alvarenga [address] : 1985 AGE: 38 SEX: F [place] [address] LOC: F.2600 A PHONE #: [phone] EXAM DATE: 11/08/2023 STATUS: ADM IN FAX #: [phone] RAD NO: Page 2 Signed Report 1 Patient Name: MARIA DEL CARMEN RUIZ Unit No: [id number] EXAMS: CPT CODE: [id number] CT ABD PELVIS W/CONT 42508 (Continued) Orig Print D/T: S: 11/08/2023(0941) [facility] NAME: MARIA DEL CARMEN RUIZ Radiology Department PHYS: Steffany Alvarenga [address] : 1985 AGE: 38 SEX: F [place] [address] : F.2600 A PHONE #: [phone] EXAM DATE: 11/08/2023 STATUS: ADM IN FAX #: [phone] RAD NO: Page 3 Signed Report 1CT ABDOMEN PELVIS W RYQMXCRZ7085-93-52 04:23:44EXAM: CT ABDOMEN/PELVIS WITH CONTRAST HISTORY: ?Abdominal [...] TISSUES: No suspicious lytic or sclerotic bony lesions.[facility] BrownwoodLactic Acid Whole Ifhvr9472-59-37 03:17:00* Test Item Value Reference Range Interpretation Comme nts LACTIC ACID (test code = 8787228258) 1.22 mmol/L 0.50-2.20 Lab Interpretation (test cod e = 66286-4) Normal [facility] BrownwoodCB WITH IKYA0320-62-97 00:42:59* Test Item Value Reference Range Interpretation [...] 34.5 g/dL 31.6-35.1 RDW-SD (test code = 43906-9) 41.6 fL 39.0-49.9 RDW-CV (test code = 788-0) 12.8 % 12.0-15.5 PLT (test code = 777-3) 387 166-358 H MPV (test code = 74097-3) 10.1 fL 9.5-12.9 NRBC/100 WBC (test code = 4572035262) 0.0 0.0-10.0 NRBC x10^3 (test code = 5024898352) See_Comment [Automated message] The system which generated this result transmitted reference range: 10*3/?L. The reference range was not used to interpret this result as normal/abnormal. GRAN MAT (NEUT) % (test code = 770-8) 70.4 % IMM GRAN % (test code = 8052312756) 0.50 % LYMPH % (test code = 736-9) 19.8 % MONO % (test code = 5905-5) 8.1 % EOS % (test code = 713-8) 0.7 % BASO % (test code = 706-2) 0.5 % GRAN MAT x10^3(ANC) (test code = 4810419310) 13.44 10*3/uL 1.88-7.09 H IMM GRAN x10^3 (test code = 6834306880) 0.09 10*3/uL 0.00-0.06 H LYMPH x10^3 (test code = 731-0) 3.77 10*3/uL 1.32-3.29 H MONO x10^3 (test code = 742-7) 1.55 10*3/uL 0.33-0.92 H EOS x10^3 (test code = 711-2) 0.13 10*3/uL 0.03-0.39 BASO x10^3 (test code = 704-7) 0.10 10*3/uL 0.01-0.07 H Lab Interpretation (test code = 78889-6) Abnormal [facility] BrownwoodCOMP. METABOLIC PANEL (42017)2023-11-08 00:26:19* Test Item Value Reference Range Interpretation Comme nts NA (test code = 1288579350) 138 mmol/L 135-145 K (test code = 4865493060) 3.3 mmol/L 3.5-5.0 L CL (test code = 5061825238) 109 mmol/L 98-108 H CO2 TOTAL (test code = 2134688425) 22 mmol/L 23-31 L AGAP (test code = 9894369785) 7 2-16 BUN (test code = 2897267844) 17 mg/dL 7-23 GLUCOSE (test code = 1049167165) 99 mg/dL 70-110 CREATININE (test code = 2160-0) 0.69 mg/dL 0.50-1.04 TOTAL BILI (test code = 1003504382) 0.5 mg/dL 0.1-1.1 CALCIUM (test code = 6271990529) 9.1 mg/dL 8.6-10.6 T PROTEIN (test code = 3406534173) 7.1 g/dL 6.3-8.2 ALBUMIN (test code = 3840635573) 4.1 g/dL 3.5-5.0 ALK PHOS (test code = 6311587111) 76 U/L 34-122 ALTv (test code = 1742-6) 19 U/L 5-35 AST(SGOT) (test code = 6023757327) 18 U/L 13-40 eGFR (test code = 17619-9) 114.1 mL/min/1.73m2 CKD-EPI eGFR (2020). Assuming creatinine has been stable day-to-day for at least three months, the eGFR indicates Category G1 (>= 90 mL/min/1.73 m2) Lab Interpretation (test code = 21107-9) Abnormal [facility] BrownwoodLIPASE2024-03-01 00:25:58* Test Item Value Reference Range Interpretation Comme nts LIPASE (test code = 5999004867) 157 U/L 0-220 Lab Interpretation (test cod e = 67461-8) Normal [facility] BrownwoodUrinalysis macro (dipstick) panel - Urine 2023-11-07 14:37:00* Test Item Value Reference Range Interpretation Comme nts Leukocytes (test code = Leukocytes) Negative Nitrite (test code = Nitrite) negative Urobilinogen (test code = Urobilinogen) Normal Protein (test code = Protein) Negative pH (test code = pH) 6.0 Blood (test code = Blood) 1+ Specific [place] (test code = Specific [place]) 1.015 Ketone (test code = Ketone) Negative Bilirubin (test code = Bilirubin) Negative Glucose (test code = Glucose) Negative Appearance (test code = Appearance) Slightly Cloudy Color (test code = Color) Dark Yellow [facility] MedicalUrinalysis macro (dipstick) panel - Oyini0557-43-64 14:37:00* Test Item Value Reference Range Interpretation Comme nts Leukocytes (test code = Leukocytes) Negative Nitrite (test code = Nitrite) negative Urobilinogen (test code = Urobilinogen) Normal Protein (test code = Protein) Negative pH (test code = pH) 6.0 Blood (test code = Blood) 1+ Specific [place] (test code = Specific [place]) 1.015 Ketone (test code = Ketone) Negative Bilirubin (test code = Bilirubin) Negative Glucose (test code = Glucose) Negative Appearance (test code = Appearance) Slightly Cloudy Color (test code = Color) Dark Yellow [facility] MedicalUrinalysis macro (dipstick) panel - Hujhw0544-31-22 14:37:00* Test Item Value Reference Range Interpretation Comme nts Leukocytes (test code = Leukocytes) Negative Nitrite (test code = Nitrite) negative Urobilinogen (test code = Urobilinogen) Normal Protein (test code = Protein) Negative pH (test code = pH) 6.0 Blood (test code = Blood) 1+ Specific [place] (test code = Specific [place]) 1.015 Ketone (test code = Ketone) Negative Bilirubin (test code = Bilirubin) Negative Glucose (test code = Glucose) Negative Appearance (test code = Appearance) Slightly Cloudy Color (test code = Color) Dark Yellow [facility] MedicalUrinalysis macro (dipstick) panel - Ofstf0910-87-35 14:37:00* Test Item Value Reference Range Interpretation Comme nts Leukocytes (test code = Leukocytes) Negative Nitrite (test code = Nitrite) negative Urobilinogen (test code = Urobilinogen) Normal Protein (test code = Protein) Negative pH (test code = pH) 6.0 Blood (test code = Blood) 1+ Specific [place] (test code = Specific [place]) 1.015 Ketone (test code = Ketone) Negative Bilirubin (test code = Bilirubin) Negative Glucose (test code = Glucose) Negative Appearance (test code = Appearance) Slightly Cloudy Color (test code = Color) Dark Yellow [facility] MedicalBASIC METABOLIC LRQPK7212-63-28 05:50:00* Test Item Value Reference Range Interpretation [...] CA) 8.3 MG/DL 8.5-10.1 L CBC W/AUTO NIRX1417-81-14 05:03:00* Test Item Value Reference Range Interpretation [...] NRBC#) 0.0 K/mm3 0.0-0.1 N COMPREHENSIVE METABOLIC MTMJH2400-93-98 05:31:00* Test Item Value Reference Range Interpretation [...] code = ALKP) 60 Unit/L 45-117 N QZLUQRHOJNA4613-12-89 05:31:00* Test Item Value Reference Range Interpretation Comme nts PHOSPHOROUS (test code = PHOS) 2.8 MG/DL 2.5-4.9 N HDFIZTPXT6137-16-67 05:31:00* Test Item Value Reference Range Interpretation Comme nts MAGNESIUM (test code = MAG) 2.3 MG/DL 1.8-2.4 N PROTHROMBIN VZHA0589-99-25 05:21:00* Test Item Value Reference Range Interpretation [...] Infarction (to prevent recurrent infarct). THROMBOPLASTIN TIME LSMTRMV5101-06-40 05:21:00* Test Item Value Reference Range Interpretation Comme nts THROMBOPLASTIN TIME PARTIAL (test code = PTT) 26.9 SECONDS 26-35 N JBFTWHRUCF5083-16-81 05:21:00* Test Item Value Reference Range Interpretation Comme nts FIBRINOGEN (test code = FIB) 297 mg/dL 185-453 N CBC W/AUTO JEZQ1635-74-50 05:13:00* Test Item Value Reference Range Interpretation [...] = NRBC#) 0.0 K/mm3 0.0-0.1 N LACTIC EZJU5229-44-32 20:28:00* Test Item Value Reference Range Interpretation Comme nts LACTIC ACID (test code = LACT) 0.9 mmol/L 0.4-2.0 N - CT ABD PELVIS W/XLSA1904-31-63 19:03:00 [facility] 1985 Sex: F Name: MARIA DEL CARMEN RUIZ [facility] : 1985 Age/S: 38 / F [address] [facility] [address] Unit #: [id number] Loc: [place] [address] Phys: Joe Torres NP Acct: [id number] Dis Date: Status: REG ER PHONE #: [phone] Exam Date: 10/21/2023 1838 FAX #: Reason: pain EXAMS: CPT: [id number] CT ABD PELVIS W/CONT 21828 Location:H77 EXAM: CT ABDOMEN/PELVIS WITH CONTRAST DATE: [...] RUIZ : 1985 Age/S: 38 / F [address] [address] [place] Unit#: [id number] Loc: [place] [address] Phys: Joe Torres NP Acct: [id number] Dis Date: Status:REG ER PHONE #: [phone] Exam Date: 10/21/2023 1838 FAX #: Reason: pain EXAMS: CPT: [id number] CT ABD PELVIS W/CONT 07881 (Continued) No retroperitoneal, mesenteric or pelvic lymphadenopathy. No fluid collections or free fluid. No free air. The uterus is absent. No adnexal mass. The urinary bladder is decompressed limiting its evaluation.. No acute osseous lesions. Post surgical changes of ananterior abdominal wall repair. IMPRESSION: No acute abdominal or pelvic abnormality. at 1903 Reported and signed by: Kendal Barry M.D. CC: Joe Torres TRAFFIC SIGN SUPERVISOR; Ashley Rodriguez MD Technologist:Amadou Varela, RT(R) CTDI: DLP: Trnscb Date/Time: 10/21/2023 (1902) t.EDILIA.MOP Orig Print D/T: S: 10/21/2023 (1906) PAGE 2 Signed Report- CT ABD PELVIS W/EAEJ4255-52-13 19:03:00 [facility] : 1985 Sex: F Name: MARIA DEL CARMEN RUIZ : 1985 Age/S: 38 / F [address] [address] [place] Unit #: [id number] Loc: [place] [address] Phys: Joe Torres TRAFFIC SIGN SUPERVISOR Acct: [id number] Dis Date: 10/23/2023 Status: DIS INPHONE #: [phone] Exam Date: 10/21/2023 1835 FAX #: Reason: pain EXAMS: CPT: [id number] CT ABD PELVIS W/CONT 66298 Location:[facility] EXAM: CT ABDOMEN/PELVIS WITH CONTRAST DATE: 10/21/2023 [...] RUIZ : 1985 Age/S: 38 / F [address] [address] Unit #: [id number] Loc: [place] [address] Phys: Joe Torres TRAFFIC SIGN SUPERVISOR Acct: [id number] Dis Date: 10/23/2023 Status: DIS IN PHONE #: [phone] Exam Date: 10/21/2023 1831 FAX #: Reason: pain EXAMS: CPT: [id number] CT ABD PELVIS W/CONT 10422 (Continued) No retroperitoneal, mesenteric or pelvic lymphadenopathy. No fluid collections or free fluid. No free air. The uterus is absent. No adnexalmass. The urinary bladder is decompressed limiting its evaluation.. No acute osseous lesions. Post surgical changes of an anterior abdominal wall repair. IMPRESSION: No acute abdominal or pelvic abnormality. at 1903 Reported and signed by: Kendal Hudson M.D. CC: Joe Torres TRAFFIC SIGN SUPERVISOR; Ashley Rodriguez MD Technologist:Amadou Varela, (R) CTDI: DLP: Trnscb Date/Time: 10/21/2023 (1902) t.CINTHYAR.MOP Orig Print D/T: S: 10/21/2023 (1906) PAGE 2 Signed ReportUA RFLX MICR CULT IF [id number] 18:25:00* Test Item Value Reference Range Interpretation [...] srcSOURCE OF URINE: CLEAN CATCH BASIC METABOLIC ILFQB4291-09-81 18:12:00* Test Item Value Reference Range Interpretation [...] CA) 9.1 MG/DL 8.5-10.1 N HEPATIC FUNCTION ZFYHX4186-76-47 18:12:00* Test Item Value Reference Range Interpretation [...] ALKP) 79 Unit/L 45-117 N CBC W/AUTO DZKU1922-40-11 17:49:00* Test Item Value Reference Range Interpretation [...] NRBC#) 0.0 K/mm3 0.0-0.1 N infectious disease jeagr4890-68-80 03:20:00[facility]normal [facility] infectious disease ktpzz2806-77-37 03:20:00Abnormal StatusPrivia MedicalSURGICAL 2023-09-26 16:31:00* Test Item Value Reference Range Interpretation Comme nts SURGICAL (test code = SR) RUN DATE: 09/26/23 [facility] PAGE 1 RUN TIME: 1631 Specimen Inquiry RUN USER: INTERFACE PATIENT: MARIA DEL CARMEN RUIZ LOC: WENDY U #: [id number] AGE/SX: 37/F ROOM: RE09/23/23REG DR: Ashley Rodriguez MD : [birth year] BED: DIS: STATUS: DEP [facility] TLOC: SPEC #: [id number] RECD: 09/23/23 STATUS: RAKESH LUNDBERG #: [id number] SANTY: 09/23/23-[address]: Ashley Rodriguez MD ENTERED: 09/23/23 SP TYPE: SURGICAL OTHR DR: ORDERED: 40527, 89943, ANATOMIC SPEC, SPECIMEN TRACK PROCEDURES: 72692 (09/23/23) 77611 (09/26/23-1629) SPECIMEN TRACK (09/23/23) TISSUES: A. UTERINE [...] CONTINUED ON NEXT PAGE RUN DATE: 09/26/23 [facility] PAGE 2 RUN TIME: 1631 Specimen Inquiry RUN USER: INTERFACE SPEC #: [id number]:[id number] PATIENT: MARIA DEL CARMEN RUIZ #[id number] (Continued) GROSS DESCRIPTION (Continued) B1 posterior cervixB2 anterior cervixB3-B4 posterior endomyometrium B5-B6 anterior endomyometriumB7 posterior reflection B8-B11 left ovarian cyst B12 left fallopian tube cut surface with entire bisected fimbriated end B13 right fallopian tube cut surface with entire bisected fimbriated end Technical tissue processing and slide preparation performed at [facility],HEP[address], [place] [address] MICROSCOPIC DESCRIPTION A and B. Microscopic examination is performed and the findings are incorporated into thefinal diagnosis. Please see diagnosis for findings. Signed SIGNATURE ON FILE VernellMoisés 09/26/23 1631 END OF REPORT GLUCOSE BEDSIDE CRBKHLC5802-55-36 13:09:00* Test Item Value Reference Range Interpretation Comme nts GLUCOSE BEDSIDE TESTING (anamaria t code = GLUBED) 85 mg/dL 70-110 N BASIC METABOLIC LHLVE3961-14-11 12:19:00* Test Item Value Reference Range Interpretation [...] CA) 9.7 MG/DL 8.5-10.1 N CBC W/AUTO GUAN2646-03-86 12:06:00* Test Item Value Reference Range Interpretation [...] = NRBC#) 0.0 K/mm3 0.0-0.1 N URINALYSIS CNMUCETY8892-87-75 12:00:00* Test Item Value Reference Range Interpretation [...] NEGATIVE Urine Specimen Type: Clean CatchUR HCG XNSX5327-09-43 12:00:00* Test Item Value Reference Range Interpretation Comme nts UR HCG QUAL (test code = HCGQLU) NEGATIVE NEGATIVE Urine Specimen Type: Clean CatchXR HAND <3 VW UPNHJ5964-73-26 21:43:26No sign of fracture or dislocation joint space is well-maintainedHendrick Medical Center [facility]wood Notes Date/Time Note Provider Source 2023-11-24 12:28:00 [id number]Zv+A Z 9swy1tp+RReDohggsU6JIX9FhkTZbFxAm173066-0 11-23T12:28:548172-9295 [facility] [address], [place] [address] PATIENT NAME: MARIA DEL CARMEN RUIZ ADMIT DATE: 11/08/23ACCOUNT NO: [id number] ROOM NO: 2600 AGE: 38 SEX: F ADMITTING PHYSICIAN: Jennifer Salazar MD ATTENDING PHYSICIAN: Jennifer Salazar MD Provider Query QUERY TEXT: Relationship Procedure Condition 360MD Query related questions should be directed to:[facility] [place] Coding Query Hotline Please clarify the etiology [...] 1228 PATIENT NAME: MARIA DEL CARMEN RUIZ noteF.[id number] for patient yhkpKCCXWGDWRYTIAJ6501-13-64J30:28:27 [facility] 2023-11-10 08:22:00 [id number]Nsqg l vSUKH2UcF5cW8z4rJ0owdhFy6qRSfFaKS3U6363-0 08:22:00 [facility] ([facility])Discharge SummaryREPORT#:[id number] REPORT STATUS: SignedREPORT INITIALIZATION DATE:11/10/23 TIME: 821 PATIENT: MARIA DEL CARMEN RUIZ UNIT #: [id number]#: [id number] ROOM/BED: 2600-ADOB: [birth year] AGE: 38 SEX: F ATTEND: Jennifer Salazar MDA AUTHOR: Douglas Orozco MDREPT SERVICE DT/TIME: 11/10/23821* ALL edits or amendments must be made on the electronic/computer document * PCP PCPDischarge to: home General InformationDate of admission:Observation Start Date: 11/08/23Date of admission: 11/08/23 Discharge date: 11/10/23Discharge diagnosis:post op TLHvaginal cellulitis (resolved) Hospital course:38 year old status post RA-TLH/BS/LSO/extensive lysis of pelvic adhesions (09/23)who was transferred from [facility] for pelvic abscesses. The patient's post [...] useof this antibiotic. She will see her TOWNSHIP CLERK outpatient. Med Rec PCPPCP:PCP: Ashley Rodriguez MD ObjectiveVS/I OLast Documented: Result Date Time Pulse Ox 98 11/09 0316 B/P 116/80 11/09 0316 B/P Mean 92.1 11/09 0316 Temp 97.5 11/09 0316 Pulse 79 11/09 0316 Resp 18 11/09 0316 O2 Delivery Room air 11/08 1548 24 hour I O ending at 0700: 11/09 0700 11/08 1900 Intake Total 1540.00 1750.00 Output Total 50 Balance 1490.00 1750.00 Intake, IV 1000.00 950.00 Intake, Oral 540 800 Number Voids 3 5 Output, Stool 50 PATIENT WEIGHT: Weight (lb): 121Weight (oz): Weight (kg): 54.767233 General appearance: alert, awake, orientedCardiovascular: regular rate rhythmRespiratory: no distressGI: soft, non-tender ResultsResults: no new labs, labs reviewed, vital signs reviewed, vital signs stable, CT results reviewed Discharge Instructions PCPPCP:PCP: Ashley Rodriguez MD Discharge InstructionsAdditional Discharge Routines: PCP Follow-Up at 0831 [facility] #:[id number] OF REPORT DSDischarge rskibhe1351-68-09Z05:22:00F.RNZU59038465- 0040AVAvailable for patient krluFFJFPJAPGQDKIC0663-15-45D57:31:27 [facility] 2023-11-09 10:32:00 [id number]xd3V 8 d+mKy03EL14lt/imLFr9N/UXv8lS4dP+hZi7846-8 02T10:32:00 [facility]Gynecology Progress NoteREPORT#:[id number] REPORT STATUS: SignedREPORT INITIALIZATION DATE:11/09/23 TIME: 1031 PATIENT: MARIA DEL CARMEN RUIZ UNIT #: [id number]#: [id number] ROOM/BED: [facility]-ADOB: [birth year] AGE: 38 SEX: F ATTEND: Jennifer [...] Pulse Resp B/P B/P Mean Pulse Ox VlK337/01-11/08 97.7-98.1 86-99 16-19 100-133/70-97 80.1-107.8 94-100 Physical ExamHEENT: moist mucosal membranesRespiratory: no distressAbdomen: non-tender, soft, no CVA tenderness, no distention, no guarding, no reboundExtremities: moves all, no calf tenderness, no edemaNeuro/AIRCRAFT PNEUDRAULIC SYSTEMS MECHANIC: alert, oriented X 3, normal speech ResultsFindings/Data:Laboratory [...] (Auto) (14.5 - 29.7 %) 31.3 H Jack % (Auto) (3.6 - 10.2 %) 8.5 Eos % (Auto) (0.0 - 3.0 %) 4.2 H Baso % (Auto) (0.1 - 0.9 %) 0.8 Neut # (Auto) (K/mm3) 4.7 Lymph # (Auto) (K/mm3) 2.7 Jack # (Auto) (K/mm3) 0.7 Eos # (Auto) [...] coverage2. Constipation: Miralax prn at 2220 RPT #:[id number] OF REPORT PRProgress ttjj3320-17-89R40:32:00F.EDSF94170091-760 0AVAvailable for patient zdliBKLHBSYDYDAEEU5717-74-20U73:21:20 [facility] 2023-11-08 09:52:00 [id number]mso x i02tJSSkJhINfuubhey9lHZm99X74Esmr831925-2 11-07T09:52:00 [facility] F[facility]SGynecology Progress NoteREPORT#:[id number] REPORT STATUS: SignedREPORT INITIALIZATION DATE:11/08/23 TIME: 951 PATIENT: MARIA DEL CARMEN RUIZ UNIT #: [id number]#: [id number] ROOM/BED: [facility]-ADOB: [birth year] AGE: 38 SEX: F ATTEND: Jennifer [...] B/P 95/56 11/07 0218 B/P Mean 69 11/078 O2 Delivery Room air 11/07 217 Temp 97.9 11/078 Pulse 84 11/07 0218 Resp 18 11/07 217 Last Documented: Result Date Time Pulse Ox 98 11/07 744 B/P 113/84 11/07 744 B/P Mean 93.7 11/07 744 O2 Delivery Room air 11/07 744 Temp 97.9 11/07 744 Pulse 93 11/07 744 Resp 18 11/07 744 24 hour I O ending at 0700: 11/07 0700 1900 Intake Total Output Total Balance Patient 121 lb Weight Weight Stated/Reported Measurement Method PATIENT WEIGHT: Weight (lb): 121Weight (oz): Weight (kg): 54.219240 Medications:Active Meds + DC'd Last 24 Hrs Clindamycin HCl/Dextrose (CLEOCIN 900MG IVPB - 50ML) 50 ML Q8H IV Gentamicin Sulfate/Sodium Chloride (GENTAMICIN 120MG/NS 100ML) 200 ML Q24H IV Ibuprofen (IBUPROFEN 800 MG TAB) 800 MG Q8H PO Oxycodone/Acetaminophen (PERCOCET TAB 5/325 MG) 1 TAB Q4H PRN PRN PO Lactated Ringer's (LACTATED RINGERS) 1,000 ML .N79R62H IV Physical ExamGeneral appearance: alert, awake, oriented, no acute distress, pleasant, sittingup in bedHEENT: moist mucosal membranesRespiratory: aerating well, symmetric expansionAbdomen: normal bowel sounds, non-tender, soft, no CVA tenderness, no distention, no guarding, no reboundExtremities: moves all, no calf tenderness, no edemaNeuro/AIRCRAFT PNEUDRAULIC SYSTEMS MECHANIC: alert, oriented X 3, normal speech ResultsFindings/Data:Laboratory [...] walled off collection.Impression By: [email or web address] - Barry Coko MD Laboratory Tests 11/08/23 1205:[Embedded Image Not [...] % (Auto) (14.5 - 29.7 %) 22.2 Jack % (Auto) (3.6 - 10.2 %) 9.3 Eos % (Auto) (0.0 - 3.0 %) 2.0 Baso % (Auto) (0.1 - 0.9 %) 0.7 Neut # (Auto) (K/mm3) 9.1 Lymph # (Auto) (K/mm3) 3.1 Jack # (Auto) (K/mm3) 1.3 Eos # (Auto) (K/mm3) 0.28 Baso # (Auto) (K/mm3) 0.1 Results: labs reviewed, vital signs reviewed, [facility] and summarized above ([facility] clinda[facility]) Diagnosis, Assessment PlanFree Text A P:38 year old status post RA-TLH/BS/LSO/extensive lysis of adhesions with suspected vaginal cuff cellulitis vs. early pelvic abscesses-Repeat CT scan noted above, IR drainage not indicated based on CT scan performed here-Gent/Clinda continue for abx coverage- repeat cbc in am, today improved WBC count from 19,000--continue current mgmtPlan discussed with: patient, nurse at 1602 RPT #:[id number] OF REPORT PRProgress frna0592-35-63I63:52:00F.KLQD07366497-775 5AVAvailable for patient eepqBQUPMPBJKUQDPE0463-91-34G63:02:52 [facility] 2023-11-08 06:44:00 [id number]O7rp 6 JJxtG+vMSsBRIpt9aqRzHcaHUqrOLQ6XSiO2862-3 11-07T06:44:00 [facility])TOWNSHIP CLERK Admission H PREPORT#:[id number] REPORT STATUS: SignedREPORT INITIALIZATION DATE:11/08/23 TIME: 643 PATIENT: MARIA DEL CARMEN RUIZ UNIT #: [id number]#: [id number] ROOM/BED: [facility]-ADOB: [birth year] AGE: 38 SEX: F ATTEND: Jennifer Salazar MDADM AUTHOR: Jennifer Salazar MDREPT SERVICE DT/TIME: 11/08/23 0644* ALL edits or amendments must be made on the electronic/computer document * History of Present IllnessChief complaint:Pelvic pain Free Text HPI NotesFree Text HPI Notes:38 year old stauts post RA-TLH/BS/LSO/extensive lysis of pelvic adhesions (09/23)who was transferred from [facility] for pelvic abscesses. The patient's post [...] (GENTAMICIN 120MG/NS 100ML) Central Nervous System Agents Sig/Amnol Start time Last Medication Dose Route Stop [...] Time Status Admin Lactated Ringer's 1,000 ML .P63R38S 11/07 024 AC 11/07 (LACTATED RINGERS) IV [...] WEIGHT: Weight (lb): 121Weight (oz): Weight (kg): 54.667988 General appearance: alert, awake, orientedCardiovascular: regular rate rhythmAbdomen/GI: soft, non-tender, no guarding, no rebound Diagnosis, Assessment Plan Free Text DxA P NotesFree Text DxA P Notes:38 year old status post RA-TLH/BS/LSO/extensive lysis of adhesions with suspected pelvic abscesses/cellulitis-Repeat CT scan -Consider IR drainage if indicated-Gent/Clinda started for antibiotic coverage. at 0651 RPT #:[id number] OF REPORT HPHistory and physical ddlghiodfey8139-97-98T86:44:00F.RNOR44368 301-0035AVAvailable for patient rmsfXODFFEPHUWQBYR0838-86-17B08:52:00 [facility] 2023-11-08 00:28:31 z8Qs95A63nVg5Rl1CEtGhwCYotOm50JKoxjuuqhX 0 Wvg45a5nbsLmmXrbFRsXo8K7018-72-66E50:28:3 1 Report to [facility] 95538-0Zsefmhuyb department MnoyBS4884-28-56R32:28:44Emergency department NoteTXT1.2.840.840947.1.13.104.2.7.2.7278 79|[id number] for patient ymfr70205-6JkwwANYINWLTGLPQndzizhqn C-CDA narrative [id number] R Shehadeh RN[address]Fk[id number] GBACMZLVAHNROMKKO0182-69-00Q89:28:441.2.8 40.146848.1.72.3.15|1.2.840.808755.1.13.1 04.2.7.2.727879_[id number] Alice Hook RN [facility] 2023-11-07 23:58:34 qWmhe5isXqEqNYfzGy3+Ia/thCGnEjdsMg1HMCQk B g7sRrcPwoJjWNNKKlRVmO0w1583-38-63K11:58:3 4 [facility] for diagnosis of postop infectionPatient agrees to transfer/admit plan and verbalized understanding of plan of care, family aware of planPatient awake alert, oriented, resp reg unlabored, skin w/d PIV patent, no s/s infiltration noted,No adverse reaction to medications given while in ED.[facility]ronically signed by Alice Hook RN at 11/08/2023 12:00 AM QXE24225-2Atoyjaoyi department SaxtGE7925-86-11M18:00:06[facility] department NoteTXT1.2.840.066816.1.13.104.2.7.2.7278 79|[id number] for patient cith31336-0HprlGAXCYFOONVZCozatvsga C-CDA narrative text23 [address] [id number] FPYNIGNTDWYOXEDSX7473-48-82L76:00:061.2.8 40.118230.1.72.3.15|1.2.840.599451.1.13.1 .10.16.2.727879_[id number] [facility] 2023-11-07 23:11:10 /Q9CcMrvZma6R8c77EQaDv42a5nH5sZhkQSi3Omn N PolLaylHmUrjWT7RMQMg68S8713-00-38T34:11:1 0 Report given to BLAYNE Hook 75615-5Gimdfrbuz department RihtQN0123-20-59D86:11:41[facility] NoteTXT1.2.840.947464.1.13.104.2.7.2.7278 79|[id number] for patient muvz38126-1FydsIPQSLCBMXWQOwsqkmjfn C-CDA narrative nfrw245983461Gtfwex M Herrera RNUT[address] Curtis [id number] TUIOILOLHBECCXQOQ4384-16-68Q65:11:411.2.8 40.975318.1.72.3.15|1.2.840.471290.1.13.1 04.2.7.2.727879_[id number] Heidi Dickson RN [facility] 2023-11-07 17:01:00 dovLbY6A/IhdVeFL2/nBL9qEpZj/9HIOTQfMXeJN X 2CpMMOnUdGGIDGPlTIdwOTC2091-11-20R33:01:0 0 Pt states she is having abd pain; she had a hyst on 09/23/2023. States she saw of ob today and was told the abd pain was not related to the hyst. 54529-6Osbbyrimf department Triage boimUN5490-37-37Z58:02:59[facility] department Triage noteTXT1.2.840.701275.1.13.104.2.7.2.7278 79|[id number] for patient vdib15655-4Inxyowxpq department NoteLNNARRATIVEFormatted C-CDA narrative [address] Rv[id number] QEXEDTISCDQWMVJPF3237-40-56J28:02:591.2.8 40.676382.1.72.3.15|1.2.840.820544.1.13.1 04.2.7.2.727879_2037620471 [facility] 2023-11-07 16:47:00 obLxv8nycdRLQ00+06BtpGxgFsbowQdFVxnyPTSl S kk8IrZ8U+fUlMhh4yqTiNLc8027-07-49L95:47:0 0 Images from the original note were not included.[facility]MENT [facility]Patient Name: Maria Del Carmen [place] of : 1985 38 year oldMRN: [id number] Room:[facility]/[address] Physician: PATIENT DOES NOT HAVE A PCPPre- HospitalPatient Escorted by: Self [9]Mode of Arrival: Personal means [1]EMS Treatment Prior to ED Arrival:ORTHO ASSISTANT treatment: NoneED EventsDate/Time Event User Lfmzieid58/29/24 1651 Medical Screening Begins JOCELYN TORREZ MD [...] received in last 5 years: UnknownChildhood immunizations: Rh-qz-vatkEnrl Surgical HistoryPast Surgical History:Procedure Laterality DateCHOLECYSTECTOMY 06/2007UMBILICAL HERNIORRHAPHY N/A 03/11/2017Surgeon: José Miguel Rene MD; [facility] [place]iesAllergiesAllergen ReactionsLevaquin [Levofloxacin] Nausea and/or VomitingPcn [Penicillins] ItchingSocial [...] (*) 0.01 - 0.07 10*3/uLCOMP. METABOLIC PANEL (42804) - AbnormalNA 138 135 - 145 mmol/LK [...] U/LAST(SGOT) 18 13 - 40 U/LeGFR 114.1 mL/min/1.80t7ECXSRXSFNY - AbnormalAPPEARANCE Clear ClearCOLOR Straw (*) YellowPH [...] PELVIS W CONTRASTCBC WITH DIFFCOMP. METABOLIC PANEL (07464)LIPASEURINALYSISBLOOD CULTURE SCREENBLOOD CULTURE SCREENLactic Acid Whole BloodLactic [...] User Index[DN] Jocelyn Torrez MDDiagnosis/Impression as of 11/07/232258Lower abdominal painPostoperative infection, unspecified type, initial encounterMedical [...] gentamicin. The patient request to go to [facility]. She was accepted by Dr. Titus [...] medicationsNo medications on fileJocelyn Torrez Jr. MDClinical Weight And Test Bar Clerk [facility] Emergency DepartmentDragon Dictation Software is used frequently and may produce errors. Promptly contact for obvious discrepancies.Jocelyn Torrez MD11/07/23 2246NeJocelyn bernardo MD11/07/23 2259 31361-3Mcfinrwto Emergency department LavmQD2974-24-96M88:59:11[facility] NoteTXT1.2.840.192327.1.13.104.2.7.2.7278 79|[id number] for patient lgvq16078-1Vqakqunap department NoteLNNARRATIVEFormatted C-CDA narrative text[address] Jgxl[id number] ZWKSJSLADVDFRFXNS3727-24-76P69:59:111.2.8 40.452531.1.72.3.15|1.2.840.204241.1.13.1 04.2.7.2.727879_[id number] [facility] 2023-10-23 09:10:00 YW5525722588AYjlFVPXrxTJJ9Vq2JX0978CJp6I l IfOBor93ctJhlgUp9wrycab9vd9PfQ3oWhe0305-7 10-23T09:10:00 [facility] HospitalHospital[facility] Discharge SummaryREPORT#:[id number] REPORT STATUS: SignedREPORT INITIALIZATION DATE:10/23/23 TIME:909 PATIENT: MARIA DEL CARMEN RUIZ UNIT #: [id number]#: [id number] [address]8RJI: [birth year] AGE: 38 SEX: F ATTEND: Mack Pack MDADM AUTHOR: Mack Pack MDREPT SERVICE DT/TIME: 10/23/23909* ALL edits or amendments must be made on the electronic/computer document * General InformationDischarge date: 10/23/23Discharge diagnosis:# Pelvic pain with vaginal discharge-S/p hysterectomy 09/23/2022 complicated by infection x 2-Hospital course:# Pelvic pain with vaginal discharge-S/p hysterectomy 09/23/2022 complicated by infection x 2-ICING COATER Dr. Rodriguez has been consulted-Continue IV Zosyn [...] radial, R dorsalis pedis, L dorsalis pedis. Neuro/AIRCRAFT PNEUDRAULIC SYSTEMS MECHANIC: alert, oriented X 3, CNII-XII intactSkin: dry, intact, normal color, normal temperature, no rashPsychiatry: normal affect, normal mood Discharge Instructions PCPDischarge to: Home/Self CareAdditional Discharge Routines: PCP Follow-Up, Furniture Finisher Helper Follow-UpDiet: Resume Home Diet/FeedsDischarge management: greater than 30 mins Follow-up AppointmentsPCP follow-up: PCP: Ashley Rodriguez MD PCP follow up timeframe: In 1-2 weeks at 2059 RPT #: [id number] OF REPORT DSDischarge uybmknm5162-50-22H43:10:00L.XDFC15715390- 0036AVAvailable for patient fpuuLGZWOMQZJKUIBZ2551-20-66O60:59:48 [facility] 2023-10-22 17:53:00 ST5308701206V7l1+SVPnbv+X9ppXse16A3qlfd6 / f4GO7hPgjtZbibpuv4arf8vtshRKBQB1kfc2949-1 10-22T17:53:455024-0795 [place] [address] PATIENT NAME: MARIA DEL CARMEN RUIZ ADMIT DATE: 10/22/23ACCOUNT NO: [id number] ROOM NO: L.S210 AGE: 38 REPORT TYPE: CONSULTATION SEX: F ADMITTING PHYSICIAN: Mack Pack MD ATTENDING PHYSICIAN: Mack Pack MD CONSULTATION DATE: 10/22/2023 REASON FOR CONSULTATION: Postop, the patient with pelvic pain, possible vaginalcuff cellulitis. HISTORY OF PRESENT ILLNESS: The patient is a 38-year-old, status post hysterectomy on September 23, she underwent a robotic total laparoscopic hysterectomy, bilateral salpingectomy, endometriosis excision. She had been admitted to the hospital for vaginal cuff cellulitis with a high white count loan fever. Had been suspected of having a vaginal cuff cellulitis, given clindamycin due to her allergies to penicillin and Levaquin. On more than 10 days of clindamycin, she complained about a fever of 101 and presented to the office with abnormal vaginal discharge and some pelvic pain. On examination, her vaginal cuff was intact, however, her pain was extremely disproportionate toher symptoms. She was sent to the ER for evaluation. In the emergency room, she had a white count of 9.1 with no left shift. CT scannegative for any bowel trauma or pelvic abscess. No evidence of any ureteric abnormalities at this time. Her diagnosis was still possible vaginal cuff cellulitis. The patient also has chronic back pain. She is a smoker and has been a prediabetic on . Currently, today, she is having minimal pelvic pain, mostly her pain is in her back and she relates this to chronic back pain and from lying down in the bed. She has been voiding well, tolerating diet, passing gas. No nausea or vomiting. Her last Mounjaro was one week ago on last Saturday. PHYSICAL EXAMINATION: She is afebrile. Vital signs are all stable. Pulse in the 80s, blood pressure normal and pulse ox 99-100% on room air. On examination, her abdomen is soft, nondistended. Incisions are clean, dry and intact, nontender. Lower abdomen, minimally tender and on pelvic exam, vaginal cuff is completely intact and minimal vaginal discharge. No blood on the exam. Mostly, doing well without any significant vaginal cuff tenderness. LABORATORY DATA: Her white count today is 8.7 with no left shift. Her chemistries have mostly been unremarkable with a low AST and ALT. Albumin levelis very low at 2.9 and albumin globulin ratio is also very low. Likely poor nutrition from her poor appetite postop as well as complicated by the Mounjaro. PAST MEDICAL HISTORY: Significant for prediabetes. PATIENT NAME: MARIA DEL CARMEN RUIZ PAST SOCIAL HISTORY: Current smoker, quit right at the time of surgery and is onweightbear using pure nicotine. Chronic back pain also is run of her medical problems. SURGICAL HISTORY: As mentioned, significant for robotic total laparoscopic hysterectomy, bilateral salpingectomy, endometriosis excision. CURRENT MEDICATIONS: Mounjaro once every week. ALLERGIES: TO RASPBERRIES, ____, PENICILLIN ITSELF WITH HIVES AND RASH, LEVAQUIN, NAUSEA AND VOMITING. Vital signs as above. ASSESSMENT AND PLAN:1. Possible vaginal cuff cellulitis related to her pelvic pain. Given her Zosyn3.375 grams q. 8 hours. She has received 2 doses, unclear if the third dose wasgiven, but there is another scheduled third dose at 10:00 p.m., which she will receive and after which, we will discharge her. Her creatinine is normal, unremarkable. Her kidney function normal. No lactic acidosis. The vaginal cuff is healing well. ____ cellulitis, we treated with Augmentin 875 b.i.d. for 10 days and Diflucan for possible vaginitis from her long-term antibiotics. 2. Poor nutritional status. This needs to be corrected with Boost or Ensure. Wanted to supplement today and paying attention to the nutrition. She has been counseled on this.3. Prediabetes. She has been recommended to stop the Mounjaro for at least 3 months postop, so that her nutrition could be better and that the gut motility could be facilitating her to eat better. Protein requirements of 1.5-2 grams perkilogram has been discussed with the patient.4. Smoking cessation has been reviewed with the patient, the complications. The plan has been communicated with Dr. Pack, who is a hospitalist taking care of the patient. Dictated By: Ashley Rodriguez MD Date Dictated: 10/22/2023 17:53:50Date Transcribed: 10/22/2023 20:48:38DUNIA/EMELIA/Kelly #: [id number] ID: [id number] by Ashley Rodriguez MD On 12/20/2023 05:28:08 PM at 0528 PATIENT NAME: MARIA DEL CARMEN RUIZ :4 8:00L.[id number] for patient lahbKHGNMXOCHJVKVB9032-28-67X28:28:33 [facility] 2023-10-22 14:21:00 [id number]vxtAxq A IlFUVy+nTuhqaouFDsE3T7jP228YjhJ9TNy1270-4 4:21:00 [facility] HospitalHospitalist Progress NoteREPORT#:[id number] REPORT STATUS: SignedREPORT INITIALIZATION DATE:10/22/23 TIME:1420 PATIENT: MARIA DEL CARMEN RUIZ UNIT #: [id number]#: [id number] [address] AGE: 38 SEX: F ATTEND: Mack Pack [facility] AUTHOR: Mary Ellen Chin MDREPT [...] days ago. Patient was seen by her astronomy instructor today and was sent over for further evaluation for concerns of possible pelvic abscess. Patient has been onantibiotics by her astronomy instructor. CT A/P with no abnormal finding. Patient [...] radial, R dorsalis pedis, L dorsalis pedis. Neuro/AIRCRAFT PNEUDRAULIC SYSTEMS MECHANIC: alert, oriented X 3, CNII-XII intactSkin: dry, intact, normal color, normal temperature, no rashPsychiatry: normal affect, normal mood ResultsFindings/Data:Laboratory Tests 10/22 Chemistry Sodium (134 - 147 mmol/L) 140 [...] (185 - 453 mg/dL) 297 Laboratory Tests 02/13 02/12 0443 1731 Hematology WBC (3.5 - 11.0 K/mm3) [...] (Auto) (20.5 - 51.1 %) 33.7 34.0 Jack % (Auto) (1.7 - 9.3 %) 10.1 H 9.4 H Eos % (Auto) (0.0 - 6.0 %) 5.2 3.1 Baso % (Auto) (0.0 - 2.0 %) 0.8 0.8 Neut # (Auto) (1.8 - 7.6 K/mm3) 4.3 4.8 Lymph # (Auto) (0.6 - 3.2 K/mm3) 2.9 3.1 Jack # (Auto) (0.3 - 1.1 K/mm3) 0.9 [...] - 7.0 pH UNITS) 6.0 Ur Specific [place] (1.005 - 1.030 SG) <=1.005 Urine Protein [...] discharge-S/p hysterectomy 09/23/2022 complicated by infection x 2-ICING COATER Dr. Rodriguez has been consulted-Continue IV Zosyn antibiotic for empirical coverage-Pain management with as needed morphine-Further management per Dr. Rodriguez DVT prophylaxis: SCDsGI prophylaxis: PEPCIDDisposition Anticipated: Home with family support. Time Spent on Patient Care, Coordination and Counselin min. Code Status: Full code. at 1423 RPT #: [id number] OF REPORT PRProgress cnqs2228-91-77P17:21:00L.ZLBB58227992-462 1AVAvailable for patient fwezDDIQTGTLMRYKNV9523-29-49N00:23:38 [facility] 2023-10-21 21:20:00 [id number]+bMkRdQP6WsEpsZHPEc5Uh9zI s fagS/YDNYrF9SBvO9kGWYYQSnelCHCJ/Fwy3942-0 -T21:20:[address] [facility])Hospitalist History PhysicalREPORT#:[id number] REPORT STATUS: SignedREPORT INITIALIZATION DATE:10/21/23 TIME:2119 PATIENT: MARIA DEL CARMEN RUIZ UNIT #: [id number]#: [id number] [facility] AGE: 38 SEX: F ATTEND: Mack Pack [facility] AUTHOR: Jacy Quick I APRNNPREPT [...] days ago. Patient was seen by her astronomy instructor today and was sent over for further evaluation for concerns of possible pelvic abscess. Patient has been onantibiotics by her astronomy instructor. CT A/P with no abnormal finding. Patient [...] Sodium Chloride (0.9% Sodium Chloride) 1,000 ML .[id number] IV Tramadol HCl (ULTRAM) 50 MG Q6H [...] radial, R dorsalis pedis, L dorsalis pedis. Neuro/AIRCRAFT PNEUDRAULIC SYSTEMS MECHANIC: alert, oriented X 3, CNII-XII intactSkin: dry, [...] % (Auto) (20.5 - 51.1 %) 34.0 Jack % (Auto) (1.7 - 9.3 %) 9.4 H Eos % (Auto) (0.0 - 6.0 %) 3.1 Baso % (Auto) (0.0 - 2.0 %) 0.8 Neut # (Auto) (1.8 - 7.6 K/mm3) 4.8 Lymph # (Auto) (0.6 - 3.2 K/mm3) 3.1 Jack # (Auto) (0.3 - 1.1 K/mm3) 0.9 [...] - 7.0 pH UNITS) 6.0 Ur Specific [place] (1.005 - 1.030 SG) <=1.005 Urine Protein [...] Report Impression - Status: SIGNED Entered: 10/21/2023 1679 IMPRESSION: No acute abdominal or pelvic abnormality.Impression [...] Active Intake Output 10/21 2108 Active Consultants: OBGYHeather discussed with: patient, consultants, nurseTime spent: Time spent on patient care (minutes): 45 Code Status/Resusc. DiscussionCode status: full code Free Text DxA P NotesFree Text DxA P Notes: # Pelvic pain with vaginal discharge- possible pelvic infection-ICING COATER Dr. Rodriguez has been consulted-Continue IV Zosyn [...] Staff at 1231 at 1301 RPT #: [id number] OF REPORT HPHistory and physical nzrcggxncby1528-52-70S17:20:00L.USKS48277 212-0277AVAvailable for patient qimiWWDDTSCEFUBNDK1903-98-94Y10:31:42 [facility] 2023-10-21 17:54:00 [id number]6zOt b e1lmoxt/JhsJrUb2z2DGV61YqtF7jAWyte/0 7:54:00 [facility])EMERGENCY PROVIDER REPORTREPORT#:[id number] REPORT STATUS: SignedDATE:10/21/23 TIME:1753 PATIENT: MARIA DEL CARMEN RUIZ UNIT #: [id number]#: [id number] [address]F508-7SQC: 85 AGE: 38 SEX: F PCP PHYS: Ashley Rodriguez AUTHOR: Joe Torres TRAFFIC SIGN SUPERVISOR * ALL edits or amendments must be made on the electronic/computer document * Joe Torres 10/21/231753:HPI-Abd Pain F 40 and Over Free Text HPI NotesFree Text HPI Qcewd21-fisz-axo female presents to the emergency department with complaints of lowerabdominal pain. Patient was seen by her astronomy instructor today and was sent over for further evaluation for concerns of possible pelvic abscess. Patient has been on antibiotics by her astronomy instructor. Patient also reports vaginal discharge. GeneralConfirmed Patient [...] CAT SCAN AND BLOOD WORKAllergiesCoded Allergies:Penicillins (Mild, RSA 10/21/23)levofloxacin (From LEVAQUIN) (THROAT SWELLING 10/21/23)Uncoded Allergies:LICORICE [...] 10/21/23 1731:[Embedded Image Not Available]Laboratory Tests: 10/21 1731 Chemistry Sodium (134 - 147 [...] % (Auto) (20.5 - 51.1 %) 34.0 Jack % (Auto) (1.7 - 9.3 %) 9.4 H Eos % (Auto) (0.0 - 6.0 %) 3.1 Baso % (Auto) (0.0 - 2.0 %) 0.8 Neut # (Auto) (1.8 - 7.6 K/mm3) 4.8 Lymph # (Auto) (0.6 - 3.2 K/mm3) 3.1 Jack # (Auto) (0.3 - 1.1 K/mm3) 0.9 [...] - 7.0 pH UNITS) 6.0 Ur Specific [place] (1.005 - 1.030 SG) <=1.005 Urine Protein (NEG mg/dL) NEGATIVE Urine Glucose (UA) (NEG mg/dL) NEGATIVE Urine Ketones (NEG mg/dL) NEGATIVE Urine Blood (NEG mg/DL) TRACE H Urine Nitrite (NEG SCREEN) NEGATIVE Urine Bilirubin (NEG mg/dL) NEGATIVE Urine Urobilinogen (<2.0 mg/dL) 0.2 Ur Leukocyte Esterase (NEGATIVE Leuk/mcL) NEGATIVE Microbiology: Date/Time Procedure - Status Source Growth 10/21 1742 Blood Culture - COMP BLOOD 10/21 1732 Blood Culture - COMP BLOOD Recent Impressions:CAT [...] note ConsultationConsultation Referral/Consult Name Ashley Rodriguez MD Furniture Finisher Helper Called [employer] Hel[employer] Discussed with [facility] ascp consultant, Will see patient Requested Call Date [...] ImpressionClinical ImpressionPrimary Impression: Abdominal pain [facility] Mack Pack MD [facility] Physician Hospitalist Request Time 1928 Request [...] .STK-MED ONE 10/21 1807 DC 10/21 IV 183 Electrolytic, Caloric, And Lynn Sig/Anmol Start time Last Medication Dose Route Stop Time Status Admin Sodium Chloride 50 ML .STK-MED ONE 10/21 1807 DC 10/21 IV 183 Patient Discharge Departure [...] care. at 0027 at 0813 RPT #: [id number] OF REPORTEDEmergency department acijqg9208-74-65L06:54:00L.MRGK67781849-0 246AVAvailable for patient nehdXPLCGZJPGUXAAA3127-04-74S58:28:15 [facility] 2023-09-23 19:46:00 [id number]yWA+R6xu J ul+4MlaseJuxkmKE6oSw+BSv2ZAfV54b8060281-8 09-23T19:46:782731-[address] [address] PATIENT NAME: MARIA DEL CARMEN RUIZ ADMIT DATE: 09/23/23ACCOUNT NO: [id number] ROOM NO: AGE: 38 REPORT TYPE: OPERATIVE [...] pelvic cavity, cystoscopy. SURGEON: Ashley Rodriguez MD TAPPER SHANK: Joe Pettit. ANESTHESIA: General endotracheal. FINDINGS: Anterior [...] grasped with single tooth tenaculum, dilated to 16-[place]izen [place] and 3.5 cm cup uterine manipulator was [...] was performed with a 30-degree lens, a 17-[place]izen [place] sheath and normal saline. Excellent jets of urine from both ureteral orifices. No evidence of any trauma to the bladder. Bladder was then partially drained and the patient was taken from anesthesia and taken to PACU in stable condition. She had with around and sister, debriefed about her procedure. Dictated By: Ashley Rodriguez MD Date Dictated: 09/23/2023 19:46:56Date Transcribed: 09/23/2023 22:13:34DUNIA/EMELIA/DALIA/Waldemar #: [id number] ID: [id number] by Ashley Rodriguez MD On 10/21/2023 05:24:23 PM at 0524 PATIENT NAME: MARIA DEL CARMEN RUIZ dfwzzs6755-30-58O87:13:00L.DXB81186730-75 01AVAvailable for patient ybwmTYKYSPFPGFHVFU8723-80-51Y30:25:02 [facility] 2023-09-23 18:56:00 [id number]+MQmSUVDlZ7moNib + ARVwXxrVcc5Nit4xUBqwSQh60R/zis0AHPG4897-1 8:56:00 [facility] ([facility])Brief Op NoteREPORT#:[id number] REPORT STATUS: SignedREPORT INITIALIZATION DATE:09/23/23 TIME:1855 PATIENT: MARIA DEL CARMEN RUIZ UNIT #: [id number]#: [id number] ROOM/BED:: 85 AGE: 37 SEX: F ATTEND: Ashley Rodriguez [facility] AUTHOR: Ashley Rodriguez MDREPT SERVICE DT/TIME: 01/15/24 1856* ALL edits or amendments must be made [...] Needle count: correct at 1914 RPT #: [id number] OF REPORT OPOperative mdzocq1624-10-83U86:56:00L.GKEJ17562312-9 199AVAvailable for patient emexKUWALRTYWBCMWI4663-31-21S78:14:52 [facility]
--- NOTE | 2023-12-31 12:37 | RAD REPORT ---
EXAM DESCRIPTION: CT - Abdomen Pelvis W Contrast - 12/31/2023 12:20 pm CLINICAL HISTORY: subacute abd infection, s/p 6 wks abx, eval for resolution COMPARISON: Abdomen Pelvis W Contrast dated 12/11/2023; Abdomen Pelvis W Contrast dated 11/21/2023; Abdomen Pelvis W Contrast dated 10/07/2023; Abdomen Pelvis W Contrast dated 08/26/2022 TECHNIQUE: Thin cut axial CT imaging of the abdomen and pelvis was performed following intravenous a dministration of 100 mL Isovue 300. Multiplanar reformats were generated and reviewed. All CT scans are performed using dose optimization technique as appropriate and may include automated exposure control or mA/KV adjustment according to patient size. FINDINGS: No suspicious findings in the lung bases. The liver, spleen, adrenal glands, and pancreas show no suspicious findings. Gallbladder was surgical ly removed. Symmetric renal function is seen with no hydronephrosis or suspicious renal mass. No dilated bowel loops or bowel wall thickening. No free air, free fluid or inflammatory stranding. N o hernia, mass or bulky lymphadenopathy. Thumb right adnexal ovoid 1.9 cm fluid density cyst, likely physiologic. Appendix is unremarkable. The urinary bladder is without significant finding. No suspicious bony findings. IMPRESSION: No acute intra-abdominal process.
--- NOTE | 2023-12-31 13:41 | EDPHYS ---
Physician Documentation [facility] Name: Maria Del Carmen Stokes Age: 38 yrs Sex: Female : 1985 Arrival Date: 12/31/2023 Time: 11:39 Bed 14 Private MD: ED Physician Constantine Hickman HPI: 12/30 13:04 This 38 yrs old Female presents to ER via Ambulatory with complaints of Picc Line rn Problem. 13:04 Patient reports sent in by her cloth measurer for removal of PICC line. We confirmed with rn her gynecology office that she no longer needs her PICC line. Patient also states that she is supposed to be getting a CT abdomen pelvis to check for resolution of infection tomorrow but her cloth measurer is wondering if we can get CT done here today before we remove PICC line.. 13:07 Onset: The symptoms/episode began/occurred at an unknown time. Severity of symptoms: At rn their worst the symptoms were. The patient has experienced a previous episode. Historical: - Allergies: 12:10 Codeine; hb 12:10 Levaquin; hb 12:10 PENICILLINS; hb 12:10 Tramadol HCl; hb - PMHx: 12:10 ADD/ADHD; hb - PSHx: 12:10 Cholecystectomy; hernia; Total abdominal hysterectomy; hb - Immunization history:: Adult Immunizations up to date. - Infectious Disease History:: Denies. - Social history:: Smoking status: Patient denies any tobacco usage or history of. - Family history:: not pertinent. - Hospitalizations: : No recent hospitalization is reported. ROS: 13:07 Constitutional: Negative for fever, chills, and weight loss, Neck: Negative for injury, rn pain, and swelling, Cardiovascular: Negative for chest pain, palpitations, and edema, Respiratory: Negative for shortness of breath, cough, wheezing, and pleuritic chest pain, MS/Extremity: Mild pain at PICC line insertion site. No swelling. No fever Exam: 13:07 Constitutional: This is a well developed, well nourished patient who is awake, alert, rn and in no acute distress. MS/ Extremity: Pulses equal, no cyanosis. Neurovascular intact. Full, normal range of motion. Equal circumference. Mild redness at insertion site, no fluctuance, no streaking, no lymphadenopathy in axilla. Vital Signs: 12:06 BP 136 / 104; Pulse 96; Resp 16; Temp 98.4(O); Pulse Ox 100% on R/A; Weight 58.97 kg; hb Height 5 ft. 2 in. ; Pain 8/10; 12:30 BP 130 / 98; Pulse 88; Resp 16; Pulse Ox 99% ; ko1 12:06 Body Mass Index 23.78 (58.97 kg, 157.48 cm) hb 12:06 Pain Scale: Adult hb Procedures: 13:41 Performed PICC line removal. Left upper extremity PICC line removed. Patient was placed rn in Trendelenburg, breath held during entire procedure. PICC line removed intact, tolerated well. Post chest x-ray negative for complication.. MDM: 11:52 Patient medically screened. rn 13:38 Differential Diagnosis Encounter for PICC line removal.. Data reviewed: vital signs, rn nurses notes, radiologic studies, CT scan, plain films, and as a result, I will discharge patient. Independent interpretation of the following test(s) in the Emergency Department X-Ray: My interpretation is Chest x-ray images status post PICC line removal negative for pneumothorax or complication per my interpretation.. Counseling: I had a detailed discussion with the patient and/or guardian regarding the historical points, exam findings, and any diagnostic results supporting the discharge/admit diagnosis, radiology results, the need for outpatient follow up, to return to the emergency department if symptoms worsen or persist or if there are any questions or concerns that arise at home. Special discussion: I discussed with the patient/guardian in detail that at this point there is no indication for admission to the hospital. It is understood, however, that if the symptoms persist or worsen the patient needs to return immediately for re-evaluation. 12/30 12:09 Order name: CT Abd/Pelvis - IV Contrast Only; Complete Time: 12:49 rn 12/30 13:06 Order name: XRAY Chest (1 view) rn Administered Medications: No medications were administered Disposition Summary: 12/31/23 13:40 Discharge Ordered Notes: Location: Home rn Problem: new rn Symptoms: have improved rn Condition: Stable rn Diagnosis - Encounter for PICC line removal rn Followup: rn - With: Private Physician - When: As needed - Reason: Recheck today's complaints, Re-evaluation by your physician Discharge Instructions: - Discharge Summary Sheet rn - PICC Removal, Adult rn - PICC Removal, Adult, Care After rn Forms: - Medication Reconciliation Form rn - Antibiotic overnight associate - Prescription Opioid Use rn - Patient Portal Instructions rn - Leadership Thank You Letter rn Signatures: Dispatcher [employer] Constantine James MD MD rn Baxter, Heather, RN RN
--- NOTE | 2023-12-31 13:41 | ER ---
Nurse's Notes [facility] Name: Maria Del Carmen Stokes Age: 38 yrs Sex: Female : 1985 Arrival Date: 12/31/2023 Time: 11:39 Bed 14 Private MD: Diagnosis: Encounter for PICC line removal Presentation: 12/30 12:06 Chief complaint: Left arm pain 8/10 x 2 days, concerned about LUE PICC malfunction. hb Coronavirus screen: At this time, the client does not indicate any symptoms associated with coronavirus-19. Ebola Screen: No symptoms or risks identified at this time. Initial Sepsis Screen: Does the patient meet any 2 criteria? No. Patient's initial sepsis screen is negative. Does the patient have a suspected source of infection? No. Patient's initial sepsis screen is negative. Risk Assessment: Do you want to hurt yourself or someone else? Patient reports no desire to harm self or others. Onset of symptoms was December 31, 2023. 12:06 Method Of Arrival: Ambulatory hb 12:06 Acuity: WILLIS 3 hb Triage Assessment: 12:30 General: Appears in no apparent distress. Behavior is calm, cooperative, appropriate ko1 for age. Pain: Denies pain. EENT: No deficits noted. Neuro: No deficits noted. Cardiovascular: No deficits noted. Respiratory: No deficits noted. GI: No deficits noted. : No deficits noted. Derm: No deficits noted. Musculoskeletal: No deficits noted. Historical: - Allergies: 12:10 Codeine; hb 12:10 Levaquin; hb 12:10 PENICILLINS; hb 12:10 Tramadol HCl; hb - PMHx: 12:10 ADD/ADHD; hb - PSHx: 12:10 Cholecystectomy; hernia; Total abdominal hysterectomy; hb - Immunization history:: Adult Immunizations up to date. - Infectious Disease History:: Denies. - Social history:: Smoking status: Patient denies any tobacco usage or history of. - Family history:: not pertinent. - Hospitalizations: : No recent hospitalization is reported. Screenin:30 [facility] ED Fall Risk Assessment (Adult) History of falling in the last 3 months, ko1 including since admission No falls in past 3 months (0 pts) Confusion or Disorientation Intoxicated or Sedated No (0 pts) Impaired Gait No (0 pts) Mobility Assist Device Used No (0 pt) Altered Elimination No (0 pt) Score/Fall Risk Level 0 - 2 = Low Risk Oriented to surroundings, Maintained a safe environment, Educated pt \T\ family on fall prevention, incl call for assistance when getting out of bed, Assessed \T\ reinforced patient's understanding of fall precautions, Provided non-skid footwear, Hourly rounding (assess needs \T\ fall precautionary measures) done, Used ambulatory aids as needed (educated on \T\ assisted with). Abuse screen: Denies threats or abuse. Denies injuries from another. Nutritional screening: No deficits noted. Tuberculosis screening: No symptoms or risk factors identified. Assessment: 12:30 General: Appears in no apparent distress. Behavior is calm, cooperative, appropriate ko1 for age. Pain: Denies pain. Vital Signs: 12:06 BP 136 / 104; Pulse 96; Resp 16; Temp 98.4(O); Pulse Ox 100% on R/A; Weight 58.97 kg; hb Height 5 ft. 2 in. ; Pain 8/10; 12:30 BP 130 / 98; Pulse 88; Resp 16; Pulse Ox 99% ; ko1 12:06 Body Mass Index 23.78 (58.97 kg, 157.48 cm) hb 12:06 Pain Scale: Adult hb ED Course: 11:42 Patient arrived in ED. mg5 11:52 Constantine Hickman MD is Attending Physician. rn 12:01 Isela Babin, BLAYNE is Primary Nurse. ko1 12:10 Triage completed. hb 12:11 Arm band placed on. hb 12:22 CT Abd/Pelvis - IV Contrast Only In Process Unspecified. EDMS 12:30 Patient has correct armband on for positive identification. Allergy band placed. Bed in ko1 low position. Call light in reach. Side rails up X 1. Provided Education on: tests. Pulse ox on. NIBP on. Door closed. Noise minimized. Lights dimmed. Warm blanket given. 12:30 No provider procedures requiring assistance completed. ko1 13:43 XRAY Chest (1 view) In Process Unspecified. EDMS 13:47 Patient did not have IV access during this emergency room visit. ko1 Administered Medications: No medications were administered Medication: 12:30 VIS not applicable for this client. ko1 Outcome: 13:40 Discharge ordered by . rn 13:47 Discharged to home ambulatory, ko1 13:47 Condition: stable 13:47 Discharge instructions given to patient, Instructed on discharge instructions, follow up and referral plans. Demonstrated understanding of instructions, follow-up care, 13:47 Patient left the ED. ko1 Signatures: Dispatcher [employer] Constantine James MD MD rn Baxter, Heather, RN RN hb Oliver, Kathy, RN RN ko1 Love Dang mg5 Corrections: (The following items were deleted from the chart) 12:13 12:06 BP 136 / 104; Pulse 96bpm; Resp 16bpm; Pulse Ox 100% RA; Temp 98.4F Oral; Pain hb 8/10, Adult; hb
[2023-12-31 13:59] VITALS: BP 130/98; TEMP 98.4; O2SAT 99
--- NOTE | 2023-12-31 14:03 | RAD REPORT ---
EXAM DESCRIPTION: [place] Single View12/31/2023 1:41 pm CLINICAL HISTORY: Chest pain/arm pain COMPARISON: December 13, 2023 FINDINGS: The lungs appear clear of acute infiltrate. The heart is normal size No pneumothorax. PICC line has been removed
== END 2023-12-31 13:47 | disposition home or self-care (01) ==
LOC: ER 11:39
DX: Z45.2 Encounter for adjustment and management of vascular access device (principal)
CPT/HCPCS: 74177; 71045; Q9967

== ENCOUNTER 2024-04-20 19:08 | Inpatient (IN) | payer BC ==
--- OUTSIDE RECORDS SUMMARY | 2024-04-20 19:14 | XMS REPORT | Continuity of Care Document ---
Author Name Unknown Address [address] [facility]. 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 Name Role Phone MANSOOR STEVENSON Primary Care Physician Unavailab ÁNGEL Alfaro Attending Clinician Unavailable ÁNGEL CREWS Attending Clinician Unavailable Jordana Quevedo Attending Clinician UnavailTomy Baumann Attending Clinician Brooks Butler Attending Clinician Unavailable TRUE FELICIANO Attending Clinician Unavailable True Feliciano MD Attending Clinician [phone] GC_GCBZW_Crystala_S Attending Clinician UnavailAshley Henriquez Attending Clinician UnavailJennifer Latham Attending Clinician Unavailable JOCELYN TORREZ Attending Clinician Unavailable Jocelyn Torrez MD Attending Clinician [phone] Mack Pack Attending Clinician Unavailable MOY SAVAGE Attending Clinician UnavailMOY Garcia Attending Clinician UnavailGAYLE Su Attending Clinician Unavailable Gayle Davis Attending Clinician [phone] Doctor Unassigned, [place] Attending Clinician U ÁNGEL Moss Admitting Clinician Unavailable Ashley Rodriguez Admitting Clinician UnavailTomy Escobar Admitting Clinician TRUE Alfaro Admitting Clinician Unavailable GC_GCBZW_Michael_S Admitting Clinician UnavailJennifer Latham Admitting Clinician Unavailable JOCELYN TORREZ Admitting Clinician Unavailable Mack Pack Admitting Clinician Unavailable Payers Payer Name Policy Type Policy Number Effective Date Expirati on Date Source [place] [id number] 2008 00:00:00 [place] [id number] 2019 00:00:00 [facility] [id number] 2022 00:00:00 2023 00:00:00 Problems Condition Name Condition Details Condition Category Status Onset Date Resolution Date Last Treatment Date Treating Clinician Comments Source Deep pain on intercours e Deep Pain on Intercours e Problem Active 01-06 00:00: 00 [facility] Menopausal symptom Menopausal Symptom Problem Active 01-06 00:00: 00 [facility] Vomiting Vomiting Problem Active 4 00:00: 00 [facility] Nausea and vomiting [...] abdominal pain Disease Active 7-03 00:00: 00 [facility] Migraines Migraines Disease Active 2- 00:00: 00 [facility] Tobacco use disorder Tobacco use disorder Disease Active 10-30 00:00: 00 [facility] Normal delivery Normal delivery Disease Resolve d 02-21 00:00: 00 2013-10-30 00:00:00 2013-10-30 14:55:10 [facility] Chorioamni onitis Chorioamni onitis Disease Resolve d 02-21 00:00: 00 2013-10-30 00:00:00 2013-10-30 14:55:12 [facility] with poor obstetric history with poor obstetric history Disease Resolve d 02-21 00:00: 00 2013-10-30 00:00:00 2013-10-30 14:55:14 [facility] PROM (premature rupture of membranes) PROM (premature rupture of membranes) Disease Resolve d 2009- 6-14 00:00: 00 2013-10-30 00:00:00 2013-10-30 14:55:08 [facility] Allergies, Adverse Reactions, Alerts Allergy Name Allergy Type Status Severity Reaction(s) Onset Date Inactive Date Treating Clinician Comments Source Penicill ins DA Active U ITCHING 0 -17 00:00: 00 [facility] levoflox acin DA Active U ANAPYLACTIC REACTION 0 17 00:00: 00 [facility] Penicill ins DA Active SV HIVES 0 6-05 00:00: 00 [facility] codeine DA Active MO VOMITING 0 6-05 00:00: 00 [facility] acetamin ophen DA Active MO VOMITING 0 6-05 00:00: 00 [facility] tramadol DA Active MO VOMITING 0 6-05 00:00: 00 [facility] levoflox acin DA Active MO VOMITING 0 6-05 00:00: 00 [facility] LEVOFLOX ACIN DRUG INGREDI Active N/V 0 - 00:00: 00 [facility] Levoflox acin Propensi ty to adverse reaction s Active Nausea and/or Vomiting 0 -29 00:00: 00 [facility] Penicill ins DA Active [place] [facility] 0 2-12 00:00: 00 [facility] levoflox acin DA Active U THROAT SWELLING 0 2-12 00:00: 00 [facility] Penicill ins DA Active SV HIVES 0 1-12 00:00: 00 [facility] codeine DA Active MO VOMITING 0 1-12 00:00: 00 [facility] acetamin ophen DA Active MO VOMITING 0 1-12 00:00: 00 [facility] tramadol DA Active MO VOMITING 09-20 00:00: 00 [facility] levoflox acin DA Active MO VOMITING 09-20 00:00: 00 [facility] Penicill ins Propensi ty to adverse reaction s Active Itching 10-30 00:00: 00 [facility] PENICILL INS Drug Class Active ITCHING 10-30 00:00: 00 [facility] Penicill ins Propensi ty to adverse reaction s Active Itching 10-30 00:00: 00 [facility] No Known Drug Intolera nces DA Active U 02-09 00:00: 00 [facility] No Known Contrast Allergie s DA Active U 02-06 00:00: 00 [facility] No Known Drug Allergie s DA Active U 02-06 00:00: 00 [facility] No Known Other Allergie s DA Active U 02-06 00:00: 00 [facility] LICORICE DA Active U 02-06 00:00: 00 [facility] RASPBERR IES DA Active U 02-06 00:00: 00 [facility] Levoflox acin Allergy to substanc e Active Vomiting [facility] PENICILL INS Allergy to substanc e Active [facility] Tramadol Allergy to substanc e Active Nausea [facility] Social History Social Habit Start Date Stop Date Quantity Comments Source Exposure to SARS-CoV-2 (event) Not sure [facility] History of tobacco use Cigarette Smoker [facility] Alcoholic beverage intake 2024-04-10 00:00:00 2024-04-10 00:00:00 Current drinker of alcohol (finding) [facility] History of Social function 2024-04-10 00:00:00 2024-04-10 00:00:00 [facility] Alcohol intake 2020-06-06 00:00:00 2020-06-06 00:00:00 Current drinker of alcohol (finding) [facility] Alcohol Comment 2013-10-30 00:00:00 2013-10-30 00:00:00 occasionally [facility] Cigarettes smoked current (pack per day) - Reported 2013-10-30 00:00:00 2013-10-30 00:00:00 [facility] Cigarette pack-years 2013-10-30 00:00:00 2013-10-30 00:00:00 [facility] Tobacco use and exposure 2013-10-30 00:00:00 2013-10-30 00:00:00 Smokeless tobacco non-user [facility] Sex assigned at 1985 00:00:00 1985 00:00:00 [facility] Smoking Status Start Date Stop Date Source Former Smoker Guadalupe Larose Smokes tobacco daily 2013-10-30 00:00:00 [facility] Medications Ordered Medication Name Filled Medication Name Start Date Stop Date Current Medication? Ordering Clinician Indication Dosage Frequency Signature (SIG) Comments Components Source ketorolac (TORADOL) injection 15 mg 04-10 16:30: 00 04-10 16:02 :00 No 15mg 15 mg, Slow IV Push, ONCE, 1 dose, On Sat04/10/24 at 1130, Routine [facility] iopamidol (ISOVUE 370-500 mL) injection 75 mL 04-10 15:54: 00 04-10 15:55 :00 No [id number] 75mL 75 mL, Intravenou s, ONCE, 1 dose, On Sat04/10/24 at 1115, Routine [facility] HYDROcodone -acetaminop hen (NORCO 5) tablet 1 tablet 04-10 15:45: 00 04-10 16:01 :00 No 1{tbl} 1 tablet, Oral, ONCE, 1 dose, On Sat04/10/24 at 1045, BILL [facility] traMADoL 50 mg tablet 04-10 00:00: 00 04-16 04:59 :00 Yes [id number] 50mg Take 1 tablet by mouth every 6 (six) hours as needed for Pain (scale 7-10) for up to 5 days. Indication s: acute pain [facility] morpHINE (4 mg/mL) injection 4 mg 01-28 04:15: 00 01-28 04:20 :00 No 4mg 4 mg, Slow IV Push, ONCE, 1 dose, On Sat01/28/24 at 2315, STAT [facility] iopamidol (ISOVUE 370-500 mL) injection 100 mL 01-28 03:30: 00 01-28 03:30 :00 No [id number] 100mL 100 mL, Intravenou s, ONCE, 1 dose, On Sat01/28/24 at 2230, Routine [facility] ondansetron (ZOFRAN (PF)) injection 4 mg 01-28 02:15: 00 01-28 02:23 :00 No 4mg 4 mg, Slow IV Push, ONCE, 1 dose, On Sat01/28/24 at 2115, BILL [facility] morpHINE (4 mg/mL) injection 4 mg 01-28 02:15: 01-28 02:23 :00 No 4mg 4 mg, Slow IV Push, ONCE, 1 dose, On Sat01/28/24 at 2115, STAT [facility] ibuprofen 800 mg tablet 01-28 00:00: 00 Yes [id number] 800mg Take 1 tablet by mouth every 8 (eight) hours as needed for Pain (scale 4-6) (ALTERNATE WITH ULTRAM FOR PAIN). [facility] traMADoL (ULTRAM) 50 mg tablet 01-27 00:00: 00 Yes [id number] 50mg Take 1 tablet by mouth every 6 (six) hours as needed for Pain (scale 7-10). Indication s: acute pain [facility] ondansetron (ZOFRAN (PF)) injection 4 mg 11-07 05:15: 00 11-07 05:06 :00 No 4mg 4 mg, Slow IV Push, ONCE, 1 dose, On Sat11/07/23 at 2315, BILL [facility] FENTanyl PF (SUBLIMAZE (PF)) injection 75 mcg 11-07 05:00: 00 11-07 04:57 :00 No 75ug 75 mcg, Slow IV Push, ONCE, 1 dose, On Adore 11/07/23 at 2300, STAT [facility] NaCl 0.9% (NS) bolus infusion 1,000 mL 11-07 03:45: 00 11-07 04:45 :00 No 1000mL at 999 mL/hr, 1,000 mL, IV Infusion, ONCE, 1 dose, On Adore 11/07/23 at 2145, STAT [facility] morpHINE (4 mg/mL) injection 4 mg 11-07 03:30: 00 11-07 03:27 :00 No 4mg 4 mg, Slow IV Push, ONCE, 1 dose, On Adore 11/07/23 at 2130, STAT [facility] clindamycin in 5 % dextrose [...] br>Restric kathrine use approved by: ED PROVIDER [facility] gentamicin 150 mg in NaCl 0.9% (NS) 11-07 02:45: 00 11-07 03:49 :00 No 150mg 150 mg, IV Piggyback, ONCE, 1 dose, On Adore 11/07/23 at 2045, STAT
Re ason for Anti-Infec tive: Documented Infection< br>Documen kathrine Infection Site: Pelvic
Duration of Therapy: Other (see Comments) [facility] iopamidol (ISOVUE 370-500 mL) injection 100 mL 11-07 02:00: 00 11-07 02:00 :00 No [id number] 100mL 100 mL, Intravenou s, ONCE, 1 dose, On Adore 11/07/23 at 2000, Routine [facility] morpHINE (4 mg/mL) injection 4 mg 11-07 01:45: 00 11-07 01:35 :00 No 4mg 4 mg, Slow IV Push, ONCE, 1 dose, On Adore 11/07/23 at 1945, STAT [facility] NaCl 0.9% (NS) bolus infusion 1,000 mL 11-07 00:15: 00 11-07 02:16 :00 No 1000mL at 999 mL/hr, 1,000 mL, IV Infusion, ONCE, 1 dose, On Adore 11/07/23 at 1815, STAT [facility] FENTanyl PF (SUBLIMAZE (PF)) injection 75 mcg 11-07 00:15: 00 23:52 :00 No 75ug 75 mcg, Slow IV Push, ONCE, 1 dose, On Adore 11/07/23 at 1815, STAT [facility] ondansetron (ZOFRAN (PF)) injection 4 mg 11-07 00:15: 00 23:52 :00 No 4mg 4 mg, Slow IV Push, ONCE, 1 dose, On Adore 11/07/23 at 1815, BILL [facility] ibuprofen 600 mg tablet 2017-09 0-17 00:00: 00 Yes 600mg Take 1 tablet by mouth every 6 (six) hours as needed for Pain (scale 4-6). [facility] estradiol 0.05 mg/24 hr semiweekly transdermal patch Apply 1 patch twice a week by transdermal route. estradiol 0.05 mg/24 hr semiweekly transdermal patch Apply 1 patch twice a week by transdermal route. No 1patch( es) Q3.5D estradiol 0.05 mg/24 hr semiweekly transderma l patch Apply 1 patch twice a week by transderma l route. [facility] Probiotic Probiotic No Probiotic [facility] Immunizations Ordered Immunization Name Filled Immunization Name Date Status Comments Source Td 2012-10-10 00:00:00 Completed [facility] Td 2012-10-10 00:00:00 Completed [facility] Td 2012-10-10 00:00:00 Completed [facility] Td 2012-10-10 00:00:00 Completed [facility] Td 2012-10-10 00:00:00 Completed [facility] TD, NOS Unknown Completed [facility] TD, NOS Unknown Completed [facility] TD, NOS Unknown Completed [facility] Vital Signs Vital Name Observation Time Observation Value Comments S ource Systolic blood pressure 2024-04-10 18:15:00 121 mm[Hg] [facility] Diastolic blood pressure 2024-04-10 18:15:00 82 mm[Hg] [facility] Heart rate 2024-04-10 18:15:00 85 /min [facility] Body temperature 2024-04-10 18:15:00 36.72 Berna [facility] Respiratory rate 2024-04-10 18:15:00 16 /min [facility] Oxygen saturation in Arterial blood by Pulse oximetry 2024-04-10 18:15:00 100 /min [facility] Body height 2024-04-10 14:15:00 154.9 cm [facility] Body weight 2024-04-10 14:15:00 52.164 kg [facility] BMI 2024-04-10 14:15:00 21.73 kg/m2 [facility] Heart rate 2024-01-29 05:14:00 83 /min [facility] Body temperature 2024-01-29 05:14:00 36.94 Berna [facility] Respiratory rate 2024-01-29 05:14:00 16 /min [facility] Oxygen saturation in Arterial blood by Pulse oximetry 2024-01-29 05:14:00 100 /min [facility] Systolic blood pressure 2024-01-29 05:00:00 120 mm[Hg] [facility] Diastolic blood pressure 2024-01-29 05:00:00 93 mm[Hg] [facility] Body height 2024-01-29 00:35:00 152.4 cm [facility] Body weight 2024-01-29 00:35:00 54.432 kg [facility] BMI 2024-01-29 00:35:00 23.44 kg/m2 [facility] Body Weight 2024-01-07 00:00:00 117 [lb_av] [facility] BMI (Body Mass Index) 2024-01-07 00:00:00 22.1 kg/m2 [facility] BP Systolic 2024-01-07 00:00:00 118 mm[Hg] [facility] Height 2024-01-07 00:00:00 61 [in_i] [facility] BP Diastolic 2024-01-07 00:00:00 86 mm[Hg] [facility] Body Weight 2023-11-29 00:00:00 123.6 [lb_av] [facility] [...] [facility] Heart rate 2023-11-08 06:15:00 85 /min [facility] Respiratory rate 2023-11-08 06:15:00 12 /min [facility] Oxygen saturation in Arterial blood by Pulse oximetry 2023-11-08 06:15:00 99 /min [facility] Systolic blood pressure 2023-11-08 06:00:00 109 mm[Hg] [facility] Diastolic blood pressure 2023-11-08 06:00:00 89 mm[Hg] [facility] Body temperature 2023-11-08 05:45:00 36.56 Berna [facility] Body height 2023-11-07 23:01:00 154.9 cm [facility] Body weight 2023-11-07 23:01:00 54.885 kg [facility] BMI 2023-11-07 23:01:00 22.86 kg/m2 [facility] BP Systolic 2023-11-07 00:00:00 110 mm[Hg] [...] Systolic blood pressure 2020-06-06 20:49:00 120 mm[Hg] [facility] Diastolic blood pressure 2020-06-06 20:49:00 85 mm[Hg] [facility] Heart rate 2020-06-06 20:49:00 86 /min [facility] Procedures Procedure Date / Time Performed Performing Clinician Source CT ABDOMEN PELVIS W CONTRAST 2024-04-10 16:00:13 Ángel Crews [facility] LIPASE 2024-04-10 15:20:00 Ángel Crews [facility] COMP. METABOLIC PANEL ([id number]) 2024-04-10 15:20:00 Ángel Crews [facility] CBC WITH DIFF 2024-04-10 15:20:00 Ángel Crews [facility] URINALYSIS 2024-04-10 15:20:00 Ángel Crews [facility] US OVARY TORSION 2024-01-29 03:56:38 True Feliciano [facility] CT ABDOMEN PELVIS W CONTRAST 2024-01-29 02:33:48 True Feliciano [facility] LIPASE 2024-01-29 01:42:00 True Feliciano [facility] COMP. METABOLIC PANEL ([id number]) 2024-01-29 01:42:00 True Feliciano [facility] CBC WITH DIFF 2024-01-29 01:42:00 True Feliciano [facility] URINALYSIS 2024-01-29 01:42:00 True Feliciano [facility] CT, abdomen + pelvis, w/wo contrast 2023-12-17 00:00:00 [facility], abdomen + pelvis, w/wo contrast 2023-11-29 00:00:[address] [facility] [address], abdomen + pelvis, w/wo contrast 2023-11-14 00:00:00 [facility] LACTIC ACID WHOLE BLOOD 2023-11-08 03:08:00 Do iglesia Torrez [facility] CT ABDOMEN PELVIS W CONTRAST 2023-11-08 01:01:00 Jocelyn Torrez [facility] LIPASE 2023-11-07 23:47:00 [facility] COMP. METABOLIC PANEL ([id number]) 2023-11-07 23:47:00 Jocelyn Torrez [facility] CBC WITH DIFF 2023-11-07 23:47:00 Jocelyn Torrez [facility] URINALYSIS 2023-11-07 23:47:00 Jocelyn Torrez [facility] CONSENT/REFUSAL FOR DIAGNOSIS AND TREATMENT 2023-11-07 22:49:54 Doctor Unassigned, [place] [facility] Hysterectomy 2023-09-23 00:00:00 Guadalupe Warren edical Hysteroscopy Biopsy 2023-08-09 00:00:00 [facility] XR HAND <3 VW RIGHT 2020-06-06 20:55:12 Gayle Lopez [facility] ASSIGNMENT OF BENEFITS 2020-06-06 20:30:19 Docto r Unassigned, [place] [facility] DME/SUPPLY JUSTIFICATION 2020-05-29 05:01:00 Doc tor Unassigned, [place] [facility] Hernia Repair 2014-09-09 00:00:00 [facility] Cholecystectomy (Gallbladder) 2006-09-09 00:00:00 [facility] Encounters Start Date/Time End Date/Time Encounter Type Admission Type Attending [facility] Facility Care Department Encounter ID Source 2024-04-10 09:16:00 2024-04-10 13:20:00 Emergency X ÁNGEL CREWS JOSHUA [facility] E[facility] [id number] [facility] 2024-04-10 09:16:00 2024-04-10 13:20:00 Emergency Ángel Crews [facility] [id number] [facility] 2024-03-06 20:21:00 2024-03-06 23:20:00 Emergency EM Jordana Quevedo [facility] [id number] [facility] 2024-03-02 08:43:00 2024-03-03 10:53:00 Inpatient Krystle Martinoan [facility] [id number] [facility] 2024-03-02 08:43:00 2024-03-03 10:53:00 Inpatient Krystle Martinoan [facility] [id number] [facility] 2024-02-12 19:18:00 2024-02-12 23:54:00 Emergency EM Brooks Duran [facility] [id number] [facility] 2024-01-28 19:38:00 2024-01-29 00:16:00 Emergency X TRUE FELICIANO [facility] ERT [id number] [facility] 2024-01-28 19:38:00 2024-01-29 00:16:[address] [facility] [id number] [facility] 2024-01-07 00:00:00 2024-01-07 00:00:00 Ashley Rodriguez MD: [address], [place] [id number] , Ph. [facility] - GC_GCBZW_Kaylynn Mesa* [id number] [facility] 2023-12-31 00:00:00 2023-12-31 00:00:00 HERBERTH Galo: [address], [place] [id number] , Ph. [facility] - GC_GCBZW_Kaylynn Mesa* [id number] [facility] 2023-12-17 00:00:00 2023-12-17 00:00:00 Ashley Rodriguez MD: [address], [place] [id number] , Ph. [facility] - GC_GCBZW_Kaylynn Mesa* [id number] [facility] 2023-12-13 00:00:00 2023-12-13 00:00:00 NEGAR MyrickP: [address], [place] [phone] , Ph. [facility] - GC_GCBZW_Kaylynn Mesa* [id number] [facility] 2023-11-29 00:00:00 2023-11-29 00:00:00 Ashley Rodriguez MD: [address], [place] [id number] , Ph. GC_GCBZW_Nini nash_Gregor [facility] - GC_GCBZW_Kaylynn Mesa* [id number] [facility] 2023-11-27 00:00:00 2023-11-27 00:00:00 Outpatient GC_GCBZW_Ka diyala_S [facility] [id number] [facility] 2023-11-20 00:00:00 2023-11-20 00:00:00 Ashley Rodriguez MD: [address], [place] [phone] , Ph. GC_GCBZW_Ka diyala_S [facility] - GC_GCBZW_Kaylynn palomares Moshe* [id number] [facility] 2023-11-20 00:00:00 2023-11-20 00:00:00 Ashley Rodriguez MD: [address], [place] [phone] , Ph. [facility] - GC_GCBZW_Kaylynn marielle Moshe* [id number] [facility] 2023-11-19 11:00:00 2023-11-19 11:00:[address] [facility] [id number] [facility] 2023-11-18 00:00:00 2023-11-18 00:00:00 Outpatient GC_GCBZW_Ka diyala_S [facility] [id number] [facility] 2023-11-13 00:00:00 2023-11-13 00:00:00 Ashley Rodriguez MD: [address], [address], [place] [phone] , Ph. GC_GCBZW_Ka diyala_S [facility] - GC_GCBZW_Kaylynn palomares Moshe* [id number] [facility] 2023-11-13 00:00:00 2023-11-13 00:00:00 Ashley Rodriguez MD: [address], [address], [place] [phone] , Ph. [facility] - GC_GCBZW_Kaylynn Mesa* [id number] [facility] 2023-11-11 00:00:00 2023-11-11 00:00:00 Outpatient GC_GCBZW_Nini lomaxnancy_Gregor [facility] [id number] [facility] 2023-11-08 03:21:00 2023-11-10 10:07:00 Inpatient Jennifer Cruz [facility] [id number] [facility] 2023-11-07 17:03:00 2023-11-08 00:37:00 Emergency X JOCELYN TORREZ [facility] [id number] [facility] 2023-11-07 17:03:00 2023-11-08 00:37:[address] [facility] [id number] [facility] 2023-11-07 00:00:00 2023-11-07 00:00:00 HERBERTH Galo: [address], [place] [phone] , Ph. [facility] - GC_GCBZW_Kaylynn Mesa* [id number] [facility] 2023-11-07 00:00:00 2023-11-07 00:00:00 HERBERTH Galo: [address], [place] [address] , Ph. [facility] - GC_GCBZW_Kaylynn marielle Moshe* [id number] [facility] 2023-11-04 00:00:00 2023-11-04 00:00:00 Outpatient GC_GCBZW_Nini lomaxnancy_Gregor [facility] [id number] [facility] 2023-10-30 00:00:00 2023-10-30 00:00:00 Ashley Rodriguez MD: [address], [place] [address] , Ph. [facility] GC_GCBZW_Kaylynn marielle Moshe* [id number] [facility] 2023-10-22 14:33:00 2023-10-23 10:25:00 Inpatient EM Mack Pack HCAPM MEDI.01 [id number] [facility] 2023-10-22 14:33:00 2023-10-23 10:25:00 Inpatient EM Mack Pack HCAPM MEDI.01 [id number] [facility] 2023-10-21 22:17:00 2023-10-21 22:17:00 Outpatient Mack Pack HCACL LABO [id number] [facility] 2023-10-21 22:17:00 2023-10-21 22:17:00 Outpatient Mack Pack HCACL LABO [id number] [facility] 2023-10-21 00:00:00 2023-10-21 00:00:00 Outpatient GC_GCBZW_Ka diyala_S [facility] [id number] [facility] 2023-10-21 00:00:00 2023-10-21 00:00:00 CHELSY Myrick: [address], [place] [address] , Ph. [facility] - GC_GCBZW_Kaylynn Mesa* [id number] [facility] 2023-09-30 00:00:00 2023-09-30 00:00:00 Outpatient GC_GCBZW_Ka diyala_S [facility] [id number] [facility] 2023-09-30 00:00:00 2023-09-30 00:00:00 CHELSY Myrick: [address], [place] [address] , Ph. [facility] - GC_GCBZW_Kaylynn Mesa* [id number] [facility] 2023-09-23 12:27:00 2023-09-23 12:27:[address] [facility] [id number] [facility] 2023-09-20 00:00:00 2023-09-20 00:00:00 Outpatient GC_GCBZW_Ka diyala_S PRIV PRIV [id number] [facility] 2023-09-17 00:00:00 2023-09-17 00:00:00 Outpatient GC_GCBZW_Ka diyala_S PRIV PRIV [id number] [facility] 2023-09-13 00:00:00 2023-09-13 00:00:00 Outpatient GC_GCBZW_Ka diyala_S PRIV PRIV [id number] [facility] 2023-08-27 00:00:00 2023-08-27 00:00:00 Outpatient GC_GCBZW_Ka diyala_S PRIV PRIV [id number] [facility] 2023-08-09 00:00:00 2023-08-09 00:00:00 Outpatient GC_GCBZW_Ka diyala_S PRIV PRIV [id number] [facility] 2023-08-09 00:00:00 2023-08-09 00:00:00 Outpatient GC_GCBZW_Ka diyala_S PRIV PRIV [id number] [facility] 2023-06-19 00:00:00 2023-06-19 00:00:00 Outpatient GC_GCBZW_Ka diyala_S PRIV PRIV [id number] [facility] 2023-06-19 00:00:00 2023-06-19 00:00:00 Outpatient GC_GCBZW_Ka diyala_S PRIV PRIV [id number] [facility] 2023-06-19 00:00:00 2023-06-19 00:00:00 Outpatient GC_GCBZW_Ka diyala_S PRIV PRIV [id number] [facility] 2023-06-19 00:00:00 2023-06-19 00:00:00 Outpatient GC_GCBZW_Ka diyala_S PRIV PRIV [id number] [facility] 2023-06-18 00:00:00 2023-06-18 00:00:00 Outpatient GC_GCBZW_Ka diyala_S PRIV PRIV [id number] [facility] 2023-06-04 00:00:00 2023-06-04 00:00:00 Outpatient GC_GCBZW_Ka diyala_S PRIV PRIV [id number] [facility] 2022-08-23 13:30:00 2022-08-23 13:30:00 Outpatient R [facility] [id number] [facility] 2022-08-08 15:30:00 2022-08-08 15:30:00 Outpatient R MOY SAVAGE [facility] [id number] [facility] 2020-06-13 16:15:00 2020-06-13 16:15:00 Outpatient R GAYLE LOPEZ [facility] [id number] [facility] 2020-06-06 15:55:12 2020-06-06 23:59:00 Hospital Encounter [facility] laure [place] 1..840.114 350.1.13.10 4.2.7.2.686 [id number] [facility] 2020-06-06 16:00:00 2020-06-06 16:00:00 Outpatient R JOHN [facility] [id number] [facility] 2020-06-06 15:34:00 2020-06-06 15:49:00 Office Visit [facility] la[place] 1..840.114 350.1.13.10 4.2.7.2.686 [id number] [facility] 2020-06-06 00:00:00 2020-06-06 00:00:00 Orders Only Doctor Unassigned, [place] [facility] 1..840.114 350.1.13.10 4.2.7.2.686 [id number] [facility] 2020-05-29 00:00:00 2020-05-29 00:00:00 Orders Only Doctor Unassigned, [place] [facility] 1.2.840.114 350.1.13.10 4.2.7.2.686 [id number] [facility] Results Test Description Test Time Test Comments Results Result Co mments Source [facility]. METABOLIC PANEL (22879)2024-04-10 17:04:20* Test Item Value Reference Range Interpretation Comme nts NA (test code = 7011873079) 135 mmol/L 135-145 K (test code = 9422512036) 4.0 3.5-5.0 CL (test code = 2244996344) 104 mmol/L 98-108 CO2 TOTAL (test code = 5908682673) 19 mmol/L 23-31 L AGAP (test code = 2128233326) 12 2-16 BUN (test code = 4265426060) 19 mg/dL 7-23 GLUCOSE (test code = 0935004214) 83 mg/dL 70-110 CREATININE (test code = 2160-0) 0.77 mg/dL 0.50-1.04 TOTAL BILI (test code = 7658365700) 0.8 mg/dL 0.1-1.1 CALCIUM (test code = 5763981918) 9.1 mg/dL 8.6-10.6 T PROTEIN (test code = 5391698199) 7.6 g/dL 6.3-8.2 ALBUMIN (test code = 9920561159) 4.7 g/dL 3.5-5.0 ALK PHOS (test code = 4516929709) 67 U/L 34-122 ALTv (test code = 1742-6) 19 U/L 5-35 AST(SGOT) (test code = 4959147898) 33 U/L 13-40 eGFR (test code = 41900-1) 101.4 mL/min/1.73m2 CKD-EPI eGFR (2020). Assuming creatinine has been stable day-to-day for at least three months, the eGFR indicates Category G1 (>= 90 mL/min/1.73 m2) Lab Interpretation (test code = 39345-2) Abnormal [facility] HospitalCT ABDOMEN PELVIS W [id number] 16:59:37ORDERING PHYSICIAN: ÁNGEL CREWS. HISTORY: Abdominal pain, acute, nonlocalized ? TECHNIQUE: CT abdomen and pelvis with intravenous contrast. ?CT wasperformed according to ALARA (As Low As Reasonably Achievable). ? COMPARISON: 01/28/2024 FINDINGS: Abdomen: Visualized Chest: Visualized portions of thelungs show no consolidation oreffusions. Liver And Biliary Tree: There is focal fatty infiltration within segment 4adjacent to the falciform ligament (image 41/2). Liver otherwise enhancesnormally. Cholecystectomy clips are present. There is mild prominence ofthe intrahepatic and extrahepatic biliary tree. Spleen: No splenic abnormalities are identified. Kidneys: The kidneys are normal. Adrenals: No adrenal masses are identified. Pancreas: No pancreatic masses are identified. Lymph Nodes: No adenopathy is identified. Aorta: No aneurysms are seen. Small Bowel: There is no free air or focal bowel obstruction. ?No hiatalhernia is present. ?The terminal ileum is normal. Mesh repair of ventral abdominal wall hernias noted. There is no recurrentherniation. PELVIS: Colon: The appendix is normal.Rest of colon is normal. Bladder: The bladder wall is smooth. Reproductive Organs: The uterus and ovaries are normal. Osseous Structures: No suspicious lesions are identified.[facility] HospitalCBC WITH [id number] 16:21:29* Test Item Value Reference Range Interpretation Comme nts WBC (test code = 6690-2) 13.23 4.30-11.10 H RBC (test code = 789-8) 4.57 3.93-5.25 HGB (test code = 718-7) 13.9 g/dL 11.6-15.0 HCT (test code = 4544-3) 40.5 % 35.7-45.2 MCV (test code = 787-2) 88.6 fL 80.6-95.5 MCH (test code = 785-6) 30.4 pg 25.9-32.8 MCHC (test code = 786-4) 34.3 g/dL 31.6-35.1 RDW-SD (test code = 88322-7) 41.5 fL 39.0-49.9 RDW-CV (test code = 788-0) 12.8 % 12.0-15.5 PLT (test code = 777-3) 380 166-358 H MPV (test code = 61604-1) 10.3 fL 9.5-12.9 NRBC/100 WBC (test code = 8534487692) 0.0 0.0-10.0 NRBC x10^3 (test code = 9847334417) See_Comment [Automated messa ge] The system which generated this result transmitted reference range: 10*3/?L. The reference range was not used to interpret this result as normal/abnormal. GRAN MAT (NEUT) % (test code = 770-8) 71.8 % IMM GRAN % (test code = 5532648484) 0.50 % LYMPH % (test code = 736-9) 21.9 % MONO % (test code = 5905-5) 4.8 % EOS % (test code = 713-8) 0.5 % BASO % (test code = 706-2) 0.5 % GRAN MAT x10^3(ANC) (test code = 9007042189) 9.51 10*3/uL 1.88-7.09 H IMM GRAN x10^3 (test code = 6184813777) 0.06 10*3/uL 0.00-0.06 LYMPH x10^3 (test code = 731-0) 2.90 10*3/uL 1.32-3.29 MONO x10^3 (test code = 742-7) 0.63 10*3/uL 0.33-0.92 EOS x10^3 (test code = 711-2) 0.06 10*3/uL 0.03-0.39 BASO x10^3 (test code = 704-7) 0.07 10*3/uL 0.01-0.07 Lab Interpretation (test code = 44109-1) Abnormal [facility] HospitalUA RFLX MICR CULT IF [id number] 21:58:00* Test Item Value Reference Range Interpretation Comme nts UA COLOR (test code = COLU) YELLOW YELLOW UA APPEARANCE (test code = APPU) CLEAR CLEAR UA GLUCOSE DIPSTICK (test co de = DGLUU) NEGATIVE NEG UA BILIRUBIN DIPSTICK (test code = BILU) NEGATIVE NEG UA KETONE DIPSTICK (test cod e = KETU) TRACE NEG A UA SPECIFIC GRAVITY (test co de = SGU) 1.027 1.001-1.035 N UA BLOOD DIPSTICK (test code = HALIMA) NEG NEG UA PH DIPSTICK (test code = TANYA) 5.0 5-9 UA PROTEIN DIPSTICK (test co de = PROU) NEGATIVE NEG UA UROBILINIOGEN DIPSTICK (test code = URO) NEGATIVE mg/dL NEG UA NITRITE DIPSTICK (test co de = KVNG) NEG NEG UA LEUKOCYTE ESTERASE DIPSTI CK (test code = LEUU) NEG NEG UA WBC (test code = WBCU) 0-2 #/hpf NONE SEEN UA RBC (test code = RBCU) 0-2 #/hpf NONE SEEN UA EPITHELIAL CELLS (test co de = EPIU) RARE #/HPF RARE-FEW UA BACTERIA (test code = BACU) RARE /HPF RARE-FEW UA MUCUS (test code = MUCU) 1+ NONE SEEN Indication for culture: Dysuria/FrequencySpecimen Description: CLEAN CATCH [id number] 14:41:00* Test Item Value Reference Range Interpretation Comme nts SURGICAL (test code = SR) R UN DATE: 03/03/24 [facility] PAGE 1 RUN TIME: 1442 Specimen Inquiry RUN USER: INTERFACE Tutu ATIENT: MARIA DEL CARMEN RUIZ LOC: U #: [id number] AGE/SX: 38/F ROOM: [facility] RE03/02/24REG DR: Tomy Le : 85 BED: A DIS: 03/03/24 STATUS: DIS Gita TLOC: SPEC #: [id number] RECD: 03/02/24-1517 STATUS: SOUT RE #: [id number] SANTY: 03/02/24-[address]: Tomy Le MD ENTERED: 03/02/24-1520 SP TYPE: SURGICAL OTHR DR: ORDERED: ANATOMIC SPEC/2, SPEC TRACK, 95643/2 PROCEDURES: 87871 (03/03/24-1133) TISSUES: A. OVARY, RIGHT B. VAGINAL MUCOSA INCIDENTAL - SUTURE REMNANTS FROM VAGINAL CUFF FINAL DIAGNOSIS A. OVARY, RIGHT, OOPHORECTOMY: - Multiple cystic follicles - Ischemic necrosis - Fragmentation of specimen - Negative for malignancy B. VAGINA, CUFF, SUTURE REMNANTS, EXCISION: - Fibrovascular tissue with marked vascular congestion GROSS DESCRIPTION A. The specimen is received in formalin labeled with the patient's name and "right ovary". Received are multiple segments of tissue consistent with a fragmented ovary measuring 4.3 x2.7 x 2.2 cm in aggregate dimensions, and having an aggregate weight of 4 g. Sectioningreveals multiple cystic structures ranging in size from 0.2-0.5 cm filled with blood-tingedfluid. Normal ovarian stroma is not grossly distinct. The specimen is submittedrepresentatively in cassettes A1 through A3. B. The specimen is received in formalin labeled with the patient's name and "sutureremnants from vaginal cuff". Received are multiple pink-grimes tissue fragments measuring2.9 x 2.7 x 0.9 cm in aggregate dimensions. Sectioning reveals pale pink cut surfacesthroughout. Suture material is not grossly identified. The specimen is submittedrepresentatively in cassette B1.(CAA; 03/02/2024) Technical component performed at [facility] [place] [address] Immunohistochemical stains and Special Stains are performed at [facility] [place], [address] [place] [address], [address], [place] [address] Unless gross only, the diagnosis is based upon microscopic examination. CONTINUED ON NEXT PAGE R UN DATE: 03/03/24 [facility] - Laboratory PAGE 2 RUN TIME: 1442 Specimen Inquiry RUN USER: INTERFACE S PEC #: [id number] PATIENT: MARIA DEL CARMEN RUIZ #[id number] (Continued) GROSS DESCRIPTION (Continued) Immunohistochemistry: This test was developed and its performance characteristicsdetermined by this laboratory. It has not been approved nor does it need approval by [employer] FDA. Appropriate positive and negative controls are reviewed and judged to beacceptable. This laboratory is certified under the Clinical Laboratory ImprovementAmendments (CLIA-88) as qualified to perform high complexity clinical laboratory testing. CLINICAL INFORMATION 03/02/24, OUT OF BODY 1309, IN FORMALIN 1448, POST OP PAIN VAG CUFF CELLULITIS, RIGHTOVARIAN CYST. ---- Signed SIGNATURE ON FILE Stephani Adame 03/03/24 1441 END OF REPORT [id number] 06:35:00* Test Item Value Reference Range Interpretation Comme nts GLUBED (test code = GLUBED) 69 mg/dL 65-110 N CBC W/AUTO [id number] 06:02:00* Test Item Value Reference Range Interpretation Comme nts WHITE BLOOD CELL (test code = WBC) 12.2 K/mm3 6.5-12.3 N RED BLOOD CELL (test code = RBC) 4.30 M/mm3 3.51-4.69 N HEMOGLOBIN (test code = HGB) 12.9 g/dL 10.1-13.8 N HEMATOCRIT (test code = HCT) 39.3 % 32.5-41.8 N MEAN CELL VOLUME (test code = MCV) 91.4 fL 84.6-96.6 N MEAN CELL HGB (test code = MCH) 30.0 pg 27.3-33.9 N MEAN CELL HGB CONCETRATION ( test code = MCHC) 32.8 gm/dL 32.0-34.2 N RED CELL DISTRIBUTION WIDTH (test code = RDW) 13.3 % 12.2-16.3 N PLATELET COUNT (test code = PLT) 344 K/mm3 134-363 N MEAN PLATELET VOLUME (test c ode = MPV) 9.6 fL 9.2-12.7 N NEUTROPHIL % (test code = NT%) 67.8 % 57.9-77.3 N LYMPHOCYTE % (test code = LY%) 22.7 % 14.5-29.7 N MONOCYTE % (test code = MO%) 8.6 % 3.6-10.2 N EOSINOPHIL % (test code = EO%) 0.2 % 0.0-3.0 N BASOPHIL % (test code = BA%) 0.4 % 0.1-0.9 N NEUTROPHIL # (test code = NT#) 8.3 K/mm3 LYMPHOCYTE # (test code = LY#) 2.8 K/mm3 MONOCYTE # (test code = MO#) 1.1 K/mm3 EOSINOPHIL # (test code = EO#) 0.02 K/mm3 BASOPHIL # (test code = BA#) 0.1 K/mm3 [id number] 15:22:00* Test Item Value Reference Range Interpretation Comme nts GLUBED (test code = GLUBED) 101 mg/dL 65-110 N [id number] 10:31:00* Test Item Value Reference Range Interpretation Comme nts GLUBED (test code = GLUBED) 75 mg/dL 65-110 N BASIC METABOLIC [id number] 13:48:00* Test Item Value Reference Range Interpretation Comme nts SODIUM (test code = NA) 140 mEq/L 136-145 N POTASSIUM (test code = K) 3.9 mEQ/L 3.4-4.5 N Please note new normal range as of January 2024 CHLORIDE (test code = CL) 109 mEq/L 98-107 H Please note new normal range as of January 2024 CARBON DIOXIDE (test code = CO2) 23 mEq/L 22-31 N ANION GAP (test code = GAP) 11.9 10-20 N GLUCOSE (test code = GLU) 103 mg/dL 74-106 N Please note new normal range as of January 2024 BLOOD UREA NITROGEN (test code = BUN) 18 mg/dL 8-23 N Please note ne w normal range as of January 2024 CREATININE (test code = CREAT) 0.8 mg/dL 0.55-1.02 N Please note new normal range as of January 2024 CALCIUM (test code = CA) 9.4 mg/dL 8.3-10.6 N Please note new normal range as of January 2024 GLOMERULAR FILTRATION RATE (test code = GFR) 96.66 ml/min >60 N The Glomerular Filtration Rate is a calculated [...] or if thepatient's age is <18 years. LIVER [id number] 13:48:00* Test Item Value Reference Range Interpretation Comme nts TOTAL PROTEIN (test code = PROT) 6.5 g/dL 5.7-8.2 N Please note new normal range as of January 2024 ALBUMIN (test code = ALB) 4.4 g/dL 3.2-4.8 N Please note new normal range as of January 2024 BILIRUBIN TOTAL (test code = BILT) 0.2 mg/dL 0.3-1.2 L Please note new normal range as of January 2024 BILIRUBIN DIRECT (test code = BILD) 0.1 mg/dL < 0.3 N Please note new normal range as of January 2024 SGOT/AST (test code = AST) 25 units/L < 34 SGPT/ALT (test code = ALT) 39 units/L 10-49 N ALKALINE PHOSPHATASE TOTAL (test code = ALKP) 71 units/L 46-116 N Please note new normal range as of January 2024 CBC W/AUTO [id number] 13:14:00* Test Item Value Reference Range Interpretation Comme nts WHITE BLOOD CELL (test code = WBC) 10.0 K/mm3 6.5-12.3 N RED BLOOD CELL (test code = RBC) 4.39 M/mm3 3.51-4.69 N HEMOGLOBIN (test code = HGB) 13.3 g/dL 10.1-13.8 N HEMATOCRIT (test code = HCT) 39.9 % 32.5-41.8 N MEAN CELL VOLUME (test code = MCV) 90.9 fL 84.6-96.6 N MEAN CELL HGB (test code = MCH) 30.3 pg 27.3-33.9 N MEAN CELL HGB CONCETRATION ( test code = MCHC) 33.3 gm/dL 32.0-34.2 N RED CELL DISTRIBUTION WIDTH (test code = RDW) 13.7 % 12.2-16.3 N PLATELET COUNT (test code = PLT) 352 K/mm3 134-363 N MEAN PLATELET VOLUME (test c ode = MPV) 11.0 fL 9.2-12.7 N NEUTROPHIL % (test code = NT%) 61.6 % 57.9-77.3 N LYMPHOCYTE % (test code = LY%) 30.0 % 14.5-29.7 H MONOCYTE % (test code = MO%) 6.3 % 3.6-10.2 N EOSINOPHIL % (test code = EO%) 1.2 % 0.0-3.0 N BASOPHIL % (test code = BA%) 0.7 % 0.1-0.9 N NEUTROPHIL # (test code = NT#) 6.2 K/mm3 LYMPHOCYTE # (test code = LY#) 3.0 K/mm3 MONOCYTE # (test code = MO#) 0.6 K/mm3 EOSINOPHIL # (test code = EO#) 0.12 K/mm3 BASOPHIL # (test code = BA#) 0.1 K/mm3 - CT ABD PELVIS [id number] 22:17:00 [facility] CARMEN RUI[facility] : 1985 Sex: F Patient Name: MARIA DEL CARMEN RUIZ Unit No: [id number] EXAMS: CPT CODE: [id number] CT ABD PELVIS W/CONT 11578 CT abdomen pelvis with contrast, 02/12/2024. COMPARISON: 11/19/2023. Clinical: Abscess. Comment: Transaxial plus sagittal/coronal reformatted images were obtained following IV contrast administration. The lung bases are free of active disease. The liver, spleen, adrenal glands, pancreas, kidneys, aortaand IVC appear within normal limits. The gallbladder is absent. There is no biliary duct dilatation or significant retroperitoneal lymphadenopathy. There are postsurgical changes status post ventralherniorrhaphy. There is no gastric distention, small bowel obstruction or right lower quadrant inflammatory changes. The appendix appears within normal limits. The colon is nondistended. There are nointrinsic lesions involving the urinary bladder. The uterus is absent. No pelvic abscess is detected. The regional skeleton is intact. CT imaging was performed using iterative reconstruction techniques and/or automated exposure control to reduce radiation dose. Patient has received 3 CTs/cardiac nuclear medicine studies in the past 12 months. IMPRESSION: No abscess detected. at 2217 Reported and signed by: Dewey Martinez MD [facility] NAME: MARIA DEL CARMEN RUIZ Radiology Department PHYS: Brooks Frost MD [address] : 1985 AGE: 38 SEX: F [place], [place] [address] LOC: QUOC PHONE #:[phone] EXAM DATE: 02/12/2024 STATUS: REG ER FAX #: [phone] RAD NO: Page 1 Signed Report1 Patient Name: MARIA DEL CARMEN RUIZ Unit No: [id number] EXAMS: CPT CODE: [id number] CT ABD PELVIS W/CONT 21762 (Continued) CC: Ashley Rodriguez MD; Brooks Duran MD Technologist: RT Hue CTDI: DLP: Trnscrbd D/ (2217) [email or web address] [facility] NAME: MARIA DEL CARMEN RUIZ Radiology Department PHYS: Brooks Frost MD [address] : 1985 AGE: 38 SEX: F [place], [place] [address] LOC: DereckERS PHONE #: [phone] EXAM DATE: 02/12/2024 STATUS: REG ER FAX #: [phone] RAD NO: Page 2 Signed Report 1 Patient Name: MARIA DEL CARMEN RUIZ Unit No: [id number] EXAMS: CPT CODE: [id number] CT ABD PELVIS W/CONT 22493 (Continued) Orig Print D/T:S: 02/12/2024 (2219) [facility] NAME: MARIA DEL CARMEN RUIZ Radiology Department PHYS: WRIMIBrooks Grant MD [address] : 1985 AGE: 38 SEX: F [place], [place] [address] LOC: DereckERS PHONE #: [phone] EXAM DATE: 02/12/2024 STATUS: REG ER FAX #: [phone] RAD NO: Page 3 Signed Report 1 COMPREHENSIVE METABOLIC [id number] 21:32:00* Test Item Value Reference Range Interpretation Comme nts SODIUM (test code = NA) 141 mEq/L 136-145 N POTASSIUM (test code = K) 3.6 mEQ/L 3.4-4.5 N Please note new normal range as of January 2024 CHLORIDE (test code = CL) 112 mEq/L 98-107 H Please note new normal range as of January 2024 CARBON DIOXIDE (test code = CO2) 27 mEq/L 22-31 N ANION GAP (test code = GAP) 5.6 10-20 L GLUCOSE (test code = GLU) 91 mg/dL 74-106 N Please note new normal range as of January 2024 BLOOD UREA NITROGEN (test code = BUN) 11 mg/dL 8-23 N Please note ne w normal range as of January 2024 GLOMERULAR FILTRATION RATE (test code = GFR) 96.66 ml/min >60 N The Glomerular Filtration Rate is a calculated [...] years. CREATININE (test code = CREAT) 0.8 mg/dL 0.55-1.02 N Please note new normal range as of January 2024 TOTAL PROTEIN (test code = PROT) 7.1 g/dL 5.7-8.2 N Please note new normal range as of January 2024 ALBUMIN (test code = ALB) 4.8 g/dL 3.2-4.8 N Please note new normal range as of January 2024 CALCIUM (test code = CA) 9.3 mg/dL 8.3-10.6 N Please note new normal range as of January 2024 BILIRUBIN TOTAL (test code = BILT) 0.2 mg/dL 0.3-1.2 L Please note n ew normal range as of January 2024 SGOT/AST (test code = AST) 19 units/L < 34 SGPT/ALT (test code = ALT) 35 units/L 10-49 N ALKALINE PHOSPHATASE TOTAL (test code = ALKP) 74 units/L 46-116 N Please note n ew normal range as of January 2024 [id number] 21:32:00* Test Item Value Reference Range Interpretation Comme nts LIPASE (test code = LIP) 52 units/L 12-53 N Please note new normal range as of January 2024 UA RFLX MICR CULT IF [id number] 21:07:00* Test Item Value Reference Range Interpretation Comme nts UA COLOR (test code = COLU) YELLOW YELLOW UA APPEARANCE (test code = APPU) Slightly-Cloudy CLEAR UA GLUCOSE DIPSTICK (test code = DGLUU) NEGATIVE NEG UA BILIRUBIN DIPSTICK (test code = BILU) NEGATIVE NEG UA KETONE DIPSTICK (test cod e = KETU) NEGATIVE NEG UA SPECIFIC GRAVITY (test code = SGU) 1.025 1.001-1.035 N UA BLOOD DIPSTICK (test code = HALIMA) NEG NEG UA PH DIPSTICK (test code = TANYA) 5.0 5-9 UA PROTEIN DIPSTICK (test code = PROU) NEGATIVE NEG UA UROBILINIOGEN DIPSTICK (test code = URO) NEGATIVE mg/dL NEG UA NITRITE DIPSTICK (test code = KVNG) NEG NEG UA LEUKOCYTE ESTERASE DIPSTICK (test code = LEUU) NEG NEG UA WBC (test code = WBCU) 3-5 #/hpf NONE SEEN A UA RBC (test code = RBCU) 0-2 #/hpf NONE SEEN UA EPITHELIAL CELLS (test code = EPIU) RARE #/HPF RARE-FEW UA BACTERIA (test code = BACU) RARE /HPF RARE-FEW UA MUCUS (test code = MUCU) 1+ NONE SEEN Indication for culture: Suprapubic PainSpecimen Description: RANDOMC W/AUTO [id number] 20:59:00* Test Item Value Reference Range Interpretation Comme nts WHITE BLOOD CELL (test code = WBC) 11.7 K/mm3 6.5-12.3 N RED BLOOD CELL (test code = RBC) 4.31 M/mm3 3.51-4.69 N HEMOGLOBIN (test code = HGB) 13.2 g/dL 10.1-13.8 N HEMATOCRIT (test code = HCT) 38.3 % 32.5-41.8 N MEAN CELL VOLUME (test code = MCV) 88.9 fL 84.6-96.6 N MEAN CELL HGB (test code = MCH) 30.6 pg 27.3-33.9 N MEAN CELL HGB CONCETRATION ( test code = MCHC) 34.5 gm/dL 32.0-34.2 H RED CELL DISTRIBUTION WIDTH (test code = RDW) 13.1 % 12.2-16.3 N PLATELET COUNT (test code = PLT) 353 K/mm3 134-363 N MEAN PLATELET VOLUME (test c ode = MPV) 9.8 fL 9.2-12.7 N NEUTROPHIL % (test code = NT%) 59.9 % 57.9-77.3 N LYMPHOCYTE % (test code = LY%) 31.1 % 14.5-29.7 H MONOCYTE % (test code = MO%) 7.3 % 3.6-10.2 N EOSINOPHIL % (test code = EO%) 1.0 % 0.0-3.0 N BASOPHIL % (test code = BA%) 0.5 % 0.1-0.9 N NEUTROPHIL # (test code = NT#) 7.0 K/mm3 LYMPHOCYTE # (test code = LY#) 3.6 K/mm3 MONOCYTE # (test code = MO#) 0.9 K/mm3 EOSINOPHIL # (test code = EO#) 0.12 K/mm3 BASOPHIL # (test code = BA#) 0.1 K/mm3 US OVARY [id number] 04:44:22Ordering physician: TRUE FELICIANO INDICATION: Pelvic pain, history of recent pelvic abscess COMPARISON: CT of the abdomen and pelvis dated 01/28/2024 TECHNIQUE: Grayscale and Doppler images of the pelvis were performed via atransabdominal and endovaginal approach. FINDINGS: The patient is status post hysterectomy. There is no free fluidor definite focal fluid collection in the pelvis. The right ovary measures2.9 x 2.1 x 2.7 cm. There are multiple right ovarian follicles, measuringup to 16 mm. T here is normal color Doppler flow in the right ovary, withnormal spectral Doppler waveforms. The patient is status post leftnephrectomy.[facility]CT [facility] P[facility] W [id number] 03:43:12Ordering physician: TRUE FELICIANO Indication: Acute abdominal pain and distention COMPARISON: CT of the abdomen and pelvis dated 11/07/2023 TECHNIQUE: Axial images of the abdomen and pelvis are performed followingadministration of intravenous contrast material. Images were reformatted inthe coronal and sagittal plane. CT scan was performed according to ALARA(as low as reasonably achievable) policy. FINDINGS: The lung bases are clear. The patient is status postcholecystectomy. The liver, spleen, adrenal glands and pancreas are withinnormal limits. The kidneys are normal in appearance bilaterally withouthydronephrosis. No abdominal aortic aneurysm or dissection is appreciated.The patient is status post prior ventral hernia repair. There is no free fluid in the pelvis. The patient is statusposthysterectomy. There is no bowel obstruction, widespread diverticulosis oracute diverticulitis. The appendix is identified and within normal limits. Bone windows through the abdomen and pelvis demonstrate no osseousdestructive lesion.[facility] HospitalCB with Bqvnwefswuoh5237-62-52 02:51:42* Test Item Value Reference Range Interpretation Comme nts WBC (test code = 6690-2) 10.77 4.30-11.10 RBC (test code = 789-8) 4.39 3.93-5.25 HGB (test code = 718-7) 13.7 g/dL 11.6-15.0 HCT (test code = 4544-3) 40.6 % 35.7-45.2 MCV (test code = 787-2) 92.5 fL 80.6-95.5 MCH (test code = 785-6) 31.2 pg 25.9-32.8 MCHC (test code = 786-4) 33.7 g/dL 31.6-35.1 RDW-SD (test code = 09624-7) 46.0 fL 39.0-49.9 RDW-CV (test code = 788-0) 13.3 % 12.0-15.5 PLT (test code = 777-3) 314 166-358 MPV (test code = 13109-8) 11.4 fL 9.5-12.9 NRBC/100 WBC (test code = 3253300412) 0.0 0.0-10.0 NRBC x10^3 (test code = 1089582377) See_Comment [Automated messa ge] The system which generated this result transmitted reference range: 10*3/?L. The reference range was not used to interpret this result as normal/abnormal. GRAN MAT (NEUT) % (test code = 770-8) 50.7 % IMM GRAN % (test code = 7569565828) 0.20 % LYMPH % (test code = 736-9) 39.2 % MONO % (test code = 5905-5) 7.6 % EOS % (test code = 713-8) 1.7 % BASO % (test code = 706-2) 0.6 % GRAN MAT x10^3(ANC) (test code = 1696439010) 5.46 10*3/uL 1.88-7.09 IMM GRAN x10^3 (test code = 2990178945) 0.00-0.06 LYMPH x10^3 (test code = 731-0) 4.22 10*3/uL 1.32-3.29 H MONO x10^3 (test code = 742-7) 0.82 10*3/uL 0.33-0.92 EOS x10^3 (test code = 711-2) 0.18 10*3/uL 0.03-0.39 BASO x10^3 (test code = 704-7) 0.07 10*3/uL 0.01-0.07 Lab Interpretation (test code = 64382-9) Abnormal [facility] HospitalComplete Metabolic Uhajr0083-47-61 02:19:38* Test Item Value Reference Range Interpretation Comme nts NA (test code = 4424714032) 139 mmol/L 135-145 K (test code = 5530125540) 4.1 mmol/L 3.5-5.0 CL (test code = 6599828375) 104 mmol/L 98-108 CO2 TOTAL (test code = 6924303596) 27 mmol/L 23-31 AGAP (test code = 7027508206) 8 2-16 BUN (test code = 4995802706) 18 mg/dL 7-23 GLUCOSE (test code = 2884853605) 82 mg/dL 70-110 CREATININE (test code = 2160-0) 0.83 mg/dL 0.50-1.04 TOTAL BILI (test code = 4087607751) 0.4 mg/dL 0.1-1.1 CALCIUM (test code = 5122086860) 9.4 mg/dL 8.6-10.6 T PROTEIN (test code = 9415419157) 7.5 g/dL 6.3-8.2 ALBUMIN (test code = 3831310964) 4.6 g/dL 3.5-5.0 ALK PHOS (test code = 3042544396) 71 U/L 34-122 ALTv (test code = 1742-6) 32 U/L 5-35 AST(SGOT) (test code = 7370678617) 29 U/L 13-40 eGFR (test code = 56516-3) 92.7 mL/min/1.73m2 CKD-EPI eGFR (20 21). Assuming creatinine has been stable day-to-day for at least three months, the eGFR indicates Category G1 (>= 90 mL/min/1.73 m2) [facility] HospitalLipase, Doyii7299-05-40 02:18:57* Test Item Value Reference Range Interpretation Comme nts LIPASE (test code = 0884760185) 245 U/L 0-220 H Lab Interpretation (test cod e = 43482-3) Abnormal [facility] PELVIS W WO [id number] 14:37:00 [facility] : 1985 Sex: F Name: MARIA DEL CARMEN RUIZ [facility] : 1985 Age/S: 38 / F [address] Unit #: [id number] Loc: [place] [address] Phys: Ashley Rodriguez MD Acct: [id number] Dis Date: Status: REG CLI PHONE #: [phone] Exam Date: 11/19/2023 1200 FAX #: Reason: PELVIC AND PERINEAL PAIN EXAMS: CPT: [id number] CT ABD PELVIS W WO CONT 15685 Location Code: S17 EXAMINATION: - CT ABD [...] Adrenals: Normal configuration. Kidneys and ureters: No evidencefor obstructive uropathy. Bladder/Reproductive Organs: Urinary bladder is [...] RUIZ : 1985 Age/S: 38 / F [address] Unit #: [id number] Loc: [place] [address] Phys: Ashley Rodriguez MD Acct: [id number] Dis Date: Status: REG CLI PHONE #: [phone] Exam Date: 11/19/2023 1200 FAX #: Reason: PELVIC AND PERINEAL PAIN EXAMS: CPT: [id number] CT ABD PELVIS W WO CONT 57040 (Continued) No evidence of drainable fluid collection. Lymph nodes: There areno pathologically enlarged abdominopelvic lymph nodes. Retroperitoneum: No mass or hemorrhage. Normal caliber abdominal aorta. Abdominal wall: Postoperative changes are present along the anterior abdo rachele wall. Bones: No evidence for acute osseous abnormality. IMPRESSION: Moderate interval decrease in the amount of fluid and thickening within the pelvis. No evidence of drainable fluid collection. No other acute intra- abdominal process. Electronically Signed by Juan Miguel Bush M.D. on 4at 1437 Reported and signed by: Juan Miguel Bush M.D. CC: Ashley Rodriguez MD Technologist:Yarely Shaikh CTDI: DLP: Trnscb Date/Time: 11/19/2023 (1437) t.CINTHYAR.RSS5 Orig Print D/T: S: 11/19/2023 (1441)PAGE 2 Signed ReportCBC W/AUTO [id number] 05:52:00* Test Item Value Reference Range Interpretation Comme nts WHITE BLOOD CELL (test code = WBC) 8.6 K/mm3 6.5-12.3 N RED BLOOD CELL (test code = RBC) 3.33 M/mm3 3.51-4.69 L HEMOGLOBIN (test code = HGB) 10.1 g/dL 10.1-13.8 N HEMATOCRIT (test code = HCT) 30.5 % 32.5-41.8 L MEAN CELL VOLUME (test code = MCV) 91.6 fL 84.6-96.6 N MEAN CELL HGB (test code = MCH) 30.3 pg 27.3-33.9 N MEAN CELL HGB CONCETRATION ( test code = MCHC) 33.1 gm/dL 32.0-34.2 N RED CELL DISTRIBUTION WIDTH (test code = RDW) 13.3 % 12.2-16.3 N PLATELET COUNT (test code = PLT) 250 K/mm3 134-363 N MEAN PLATELET VOLUME (test c ode = MPV) 11.1 fL 9.2-12.7 N NEUTROPHIL % (test code = NT%) 55.0 % 57.9-77.3 L LYMPHOCYTE % (test code = LY%) 31.3 % 14.5-29.7 H MONOCYTE % (test code = MO%) 8.5 % 3.6-10.2 N EOSINOPHIL % (test code = EO%) 4.2 % 0.0-3.0 H BASOPHIL % (test code = BA%) 0.8 % 0.1-0.9 N NEUTROPHIL # (test code = NT#) 4.7 K/mm3 LYMPHOCYTE # (test code = LY#) 2.7 K/mm3 MONOCYTE # (test code = MO#) 0.7 K/mm3 EOSINOPHIL # (test code = EO#) 0.36 K/mm3 BASOPHIL # (test code = BA#) 0.1 K/mm3 RBC MORPHOLOGY REQUIRED (anamaria t code = RBCM) NORMAL NORMAL PLATELET MORPHOLOGY REQUIRED (test code = PLTMR) NORMAL NORMAL CBC W/AUTO [id number] 12:25:00* Test Item Value Reference Range Interpretation [...] code = PLTMR) NORMAL NORMAL infectious disease rdjhh6623-84-08 11:01:00* Test Item Value Reference Range Interpretation [...] code = hortensia krusei) 0 ppm 10.500-32.000 [facility] Medical[facility] disease iioja5332-92-37 11:01:00* Test Item Value Reference Range Interpretation [...] code = hortensia krusei) 0 ppm 10.500-32.000 [facility] Medicalinfectious disease gkcxm0821-75-32 11:01:00* Test Item Value Reference Range Interpretation [...] code = hortensia krusei) 0 ppm 10.500-32.000 [facility] Medicalinfectious disease ahdah4121-00-85 11:01:00* Test Item Value Reference Range Interpretation [...] code = hortensia krusei) 0 ppm 10.500-32.000 [facility]- CT ABD PELVIS W/AKJS3952-26-24 09:37:00 [facility] : 1985 Sex: F Patient Name: MARIA DEL CARMEN RUIZ Unit No: [id number] EXAMS: CPT CODE: [id number] CT ABD PELVIS W/CONT 88226 CT ABDOMEN AND PELVIS WITH CONTRAST: INDICATIONS:Pelvic [...] aneurysm. No suspicious bony lesion. IMPRESSION: [facility] NAME: MARIA DEL CARMEN RUIZ Radiology Department PHYS: LATESHA.Priscilla - Steffany Byrne [address] : 1985 AGE: 38 SEX: F [place] [address] LOC: F.2600 A PHONE #: [phone] EXAM DATE: 11/08/2023 STATUS: ADM IN FAX #: [phone] RAD NO: Page 1 Signed Report 1 Patient Name: MARIA DEL CARMEN HALL Unit No: [id number] EXAMS: CPT CODE: [id number] CT ABD PELVIS W/CONT 37430 (Continued) Status post hysterectomy. Some fluid strandings and mesenteric inflammations at the surgical site and atsuperior vaginal vault. No discrete walled off collection. at 0937 Reported and signed by: Barry Cook MD CC: Steffany Byrne MD; Ashley Rodriguez MD; Jennifer Salazar MD Technologist: Wei Ontiveros, RT, CT CTDI: 3.98 DLP: 193.93 Trnscrbd D/ (0937) t.SDR.VL4 [facility] NAME: SARAMARIA DEL CARMEN Radiology Department PHYS: LATESHA. - Steffany Byrne [address] : 1985 AGE: 38 SEX: F [place] [address] LOC: F.2600 A PHONE #: [phone] EXAM DATE: 11/08/2023 STATUS: ADM IN FAX #: [phone] RAD NO: Page 2 Signed Report 1 Patient Name: MARIA DEL CARMEN RUIZ Unit No: [id number] EXAMS: CPT CODE: [id number] CT ABD PELVIS W/CONT 84160 (Continued) Orig Print D/T: S: 11/08/2023 (0941) [facility] NAME: MARIA DEL CARMEN RUIZ Radiology Department PHYS: LATESHA. - Steffany Byrne [address] : 1985 AGE: 38 SEX: F [place] [address] LOC: F.2600 A PHONE #: [phone] EXAM DATE: 11/08/2023 STATUS: ADM IN FAX #: [phone] RADNO: Page 3 Signed Report 1CT ABDOMEN PELVIS W [id number] 04:23:44EXAM: CT ABDOMEN/PELVIS WITH CONTRAST HISTORY: ?Abdominal [...] TISSUES: No suspicious lytic or sclerotic bony lesions.[facility] HospitalLactic Acid Whole Txsvv6833-20-92 03:17:00* Test Item Value Reference Range Interpretation Comme nts LACTIC ACID (test code = 7823023171) 1.22 mmol/L 0.50-2.20 Lab Interpretation (test cod e = 44104-3) Normal [facility] WITH [id number] 00:42:59* Test Item Value Reference Range Interpretation [...] 34.5 g/dL 31.6-35.1 RDW-SD (test code = 62417-8) 41.6 fL 39.0-49.9 RDW-CV (test code = 788-0) 12.8 % 12.0-15.5 PLT (test code = 777-3) 387 166-358 H MPV (test code = 77317-5) 10.1 fL 9.5-12.9 NRBC/100 WBC (test code = 9891566212) 0.0 0.0-10.0 NRBC x10^3 (test code = 1249811371) See_Comment [Automated message] The system which generated this result transmitted reference range: 10*3/?L. The reference range was not used to interpret this result as normal/abnormal. GRAN MAT (NEUT) % (test code = 770-8) 70.4 % IMM GRAN % (test code = 2477524116) 0.50 % LYMPH % (test code = 736-9) 19.8 % MONO % (test code = 5905-5) 8.1 % EOS % (test code = 713-8) 0.7 % BASO % (test code = 706-2) 0.5 % GRAN MAT x10^3(ANC) (test code = 0027955429) 13.44 10*3/uL 1.88-7.09 H IMM GRAN x10^3 (test code = 2311242518) 0.09 10*3/uL 0.00-0.06 H LYMPH x10^3 (test code = 731-0) 3.77 10*3/uL 1.32-3.29 H MONO x10^3 (test code = 742-7) 1.55 10*3/uL 0.33-0.92 H EOS x10^3 (test code = 711-2) 0.13 10*3/uL 0.03-0.39 BASO x10^3 (test code = 704-7) 0.10 10*3/uL 0.01-0.07 H Lab Interpretation (test code = 72660-7) Abnormal [facility] HospitalCOMP. METABOLIC PANEL (13328)2023-11-08 00:26:19* Test Item Value Reference Range Interpretation Comme nts NA (test code = 8153664540) 138 mmol/L 135-145 K (test code = 7403060372) 3.3 mmol/L 3.5-5.0 L CL (test code = 1732748957) 109 mmol/L 98-108 H CO2 TOTAL (test code = 7295868309) 22 mmol/L 23-31 L AGAP (test code = 8691800629) 7 2-16 BUN (test code = 8747458225) 17 mg/dL 7-23 GLUCOSE (test code = 2080550942) 99 mg/dL 70-110 CREATININE (test code = 2160-0) 0.69 mg/dL 0.50-1.04 TOTAL BILI (test code = 4505372317) 0.5 mg/dL 0.1-1.1 CALCIUM (test code = 3084605191) 9.1 mg/dL 8.6-10.6 T PROTEIN (test code = 9484716615) 7.1 g/dL 6.3-8.2 ALBUMIN (test code = 6387492155) 4.1 g/dL 3.5-5.0 ALK PHOS (test code = 2290175296) 76 U/L 34-122 ALTv (test code = 1742-6) 19 U/L 5-35 AST(SGOT) (test code = 3138647299) 18 U/L 13-40 eGFR (test code = 31162-5) 114.1 mL/min/1.73m2 CKD-EPI eGFR (2020). Assuming creatinine has been stable day-to-day for at least three months, the eGFR indicates Category G1 (>= 90 mL/min/1.73 m2) Lab Interpretation (test code = 79179-2) Abnormal [facility] HospitalLIPASE2024-03-01 00:25:58* Test Item Value Reference Range Interpretation Comme nts LIPASE (test code = 6625680555) 157 U/L 0-220 Lab Interpretation (test cod e = 18683-5) Normal [facility] HospitalUrinalysis macro (dipstick) panel - Urine 2023-11-07 14:37:00* Test Item Value Reference Range Interpretation Comme nts Leukocytes (test code = Leukocytes) Negative Nitrite (test code = Nitrite) negative Urobilinogen (test code = Urobilinogen) Normal Protein (test code = Protein) Negative pH (test code = pH) 6.0 Blood (test code = Blood) 1+ Specific Lawai (test code = Specific Lawai) 1.015 Ketone (test code = Ketone) Negative Bilirubin (test code = Bilirubin) Negative Glucose (test code = Glucose) Negative Appearance (test code = Appearance) Slightly Cloudy Color (test code = Color) Dark Yellow [facility] MedicalUrinalysis macro (dipstick) panel - Octfq8090-48-68 14:37:00* Test Item Value Reference Range Interpretation Comme nts Leukocytes (test code = Leukocytes) Negative Nitrite (test code = Nitrite) negative Urobilinogen (test code = Urobilinogen) Normal Protein (test code = Protein) Negative pH (test code = pH) 6.0 Blood (test code = Blood) 1+ Specific Lawai (test code = Specific Lawai) 1.015 Ketone (test code = Ketone) Negative Bilirubin (test code = Bilirubin) Negative Glucose (test code = Glucose) Negative Appearance (test code = Appearance) Slightly Cloudy Color (test code = Color) Dark Yellow [facility] MedicalUrinalysis macro (dipstick) panel - Wxcsi7749-50-11 14:37:00* Test Item Value Reference Range Interpretation Comme nts Leukocytes (test code = Leukocytes) Negative Nitrite (test code = Nitrite) negative Urobilinogen (test code = Urobilinogen) Normal Protein (test code = Protein) Negative pH (test code = pH) 6.0 Blood (test code = Blood) 1+ Specific Lawai (test code = Specific Lawai) 1.015 Ketone (test code = Ketone) Negative Bilirubin (test code = Bilirubin) Negative Glucose (test code = Glucose) Negative Appearance (test code = Appearance) Slightly Cloudy Color (test code = Color) Dark Yellow [facility] MedicalUrinalysis macro (dipstick) panel - Pkjpv5451-17-66 14:37:00* Test Item Value Reference Range Interpretation Comme nts Leukocytes (test code = Leukocytes) Negative Nitrite (test code = Nitrite) negative Urobilinogen (test code = Urobilinogen) Normal Protein (test code = Protein) Negative pH (test code = pH) 6.0 Blood (test code = Blood) 1+ Specific Lawai (test code = Specific Lawai) 1.015 Ketone (test code = Ketone) Negative Bilirubin (test code = Bilirubin) Negative Glucose (test code = Glucose) Negative Appearance (test code = Appearance) Slightly Cloudy Color (test code = Color) Dark Yellow [facility] MedicalBASIC METABOLIC [id number] 05:50:00* Test Item Value Reference Range Interpretation [...] CA) 8.3 MG/DL 8.5-10.1 L CBC W/AUTO [id number] 05:03:00* Test Item Value Reference Range Interpretation [...] NRBC#) 0.0 K/mm3 0.0-0.1 N COMPREHENSIVE METABOLIC IBLTG0263-42-66 05:31:00* Test Item Value Reference Range Interpretation [...] code = ALKP) 60 Unit/L 45-117 N IZZAUQPSCAJ8103-34-76 05:31:00* Test Item Value Reference Range Interpretation Comme nts PHOSPHOROUS (test code = PHOS) 2.8 MG/DL 2.5-4.9 N SIEVYFEAQ5990-23-37 05:31:00* Test Item Value Reference Range Interpretation Comme nts MAGNESIUM (test code = MAG) 2.3 MG/DL 1.8-2.4 N PROTHROMBIN [id number] 05:21:00* Test Item Value Reference Range Interpretation [...] Infarction (to prevent recurrent infarct). THROMBOPLASTIN TIME RWWKMWV4748-60-44 05:21:00* Test Item Value Reference Range Interpretation Comme nts THROMBOPLASTIN TIME PARTIAL (test code = PTT) 26.9 SECONDS 26-35 N NENBNJRAQE3848-77-08 05:21:00* Test Item Value Reference Range Interpretation Comme nts FIBRINOGEN (test code = FIB) 297 mg/dL 185-453 N CBC W/AUTO [id number] 05:13:00* Test Item Value Reference Range Interpretation [...] = NRBC#) 0.0 K/mm3 0.0-0.1 N LACTIC KNBI5212-13-41 20:28:00* Test Item Value Reference Range Interpretation Comme nts LACTIC ACID (test code = LACT) 0.9 mmol/L 0.4-2.0 N - CT ABD PELVIS W/[id number] 19:03:00 [facility] : 1985 Sex: F Name: MARIA DEL CARMEN RUIZ [facility] : 1985 Age/S: 38 / F [address] Unit #: [id number] Loc: [place] [address] Phys: Joe Torres GARMENT MENDER Acct: [id number] Dis Date: Status: REG ER PHONE #:[phone] Exam Date: 10/21/2023 2819 FAX #: Reason: pain EXAMS: CPT: [id number] CT ABD PELVIS W/CONT 97897 Location:H77 EXAM: CT ABDOMEN/PELVIS WITH CONTRAST DATE: [...] RUIZland : 1985 Age/S: 38 / F [address] Unit #: [id number] Loc: [place] [address] Phys: Joe Torres NP Acct: [id number] Dis Date: Status: REG ER PHONE #: [phone] Exam Date: 10/21/20231837 FAX #: Reason: pain EXAMS: CPT: [id number] CT ABD PELVIS W/CONT 90462 (Continued) No retroperitoneal, mesenteric or pelvic lymphadenopathy. No fluid collections or free fluid. No free air. The uterus is absent. No adnexal mass. The urinary bladder is decompressed limiting its evaluation.. No acute osseous lesions. Post surgical changes of an anterior abdominal wall repair. IMPRESSION: No acute abdominal or pelvic abnormality. at 1903 Reported and signed by: MariaO. Becca M.D. CC: Joe Torres GARMENT MENDER; Ashley Rodriguez MD Technologist:Amadou Varela, RT(R) CTDI: DLP: Trnscb Date/Time: 10/21/2023 (1902) OlivaR.MOP Orig Print D/T: S: 10/21/2023 (3) PAGE2 Signed Report- CT ABD PELVIS W/JVPS4770-84-13 19:03:00 [facility]UI[facility] : 1985 Sex: F Name: MARIA DEL CARMEN RUIZ [facility] : 1985 Age/S: 38 / F [address] Unit #: [id number] Loc: [place] [address] Phys: Joe Torres GARMENT MENDER Acct: [id number] Dis Date: 10/23/2023 Status: DIS IN PHONE #: [phone] Exam Date: 10/21/2023 7866 FAX #: Reason: pain EXAMS: CPT: [id number] CT ABDPELVIS W/CONT 00219 Location:[facility] EXAM: CT ABDOMEN/PELVIS WITH CONTRAST DATE: 10/21/2023 [...] RUIZ : 1985 Age/S: 38 / F [address] Unit #: [id number] Loc: [place] [address] Phys: Joe Torres NP Acct: [id number] Dis Date: 10/23/2023 Status: DIS IN PHONE #: [phone] Exam Date: 10/21/2023 1835 FAX #: Reason: pain EXAMS: CPT: [id number] CT ABD PELVIS W/CONT 17099 (Continued) No retroperitoneal, mesenteric or pelvic lymphadenopathy. No fluid collections or free fluid. No free air. The uterus is absent. No adnexalmass. The urinary bladder is decompressed limiting its evaluation.. No acute osseous lesions. Post surgical changes of an anterior abdominal wall repair. IMPRESSION: No acute abdominal or pelvic abnormality. at 1903 Reported and signed by: Kendal Hudson M.D. CC: Joe Torres GARMENT MENDER; Ashley Rodriguez MD Technologist:Amadou Varela, RT(R) CTDI: DLP: Trnscb Date/Time: 10/21/2023 (1902) tSIRENAR.MOP Orig Print D/T: S: 10/21/2023 (1906) PAGE 2 Signed ReportUA RFLX MICR CULT IF [id number] 18:25:00* Test Item Value Reference Range Interpretation [...] srcSOURCE OF URINE: CLEAN CATCH BASIC METABOLIC [id number] 18:12:00* Test Item Value Reference Range Interpretation [...] CA) 9.1 MG/DL 8.5-10.1 N HEPATIC FUNCTION [id number] 18:12:00* Test Item Value Reference Range Interpretation [...] ALKP) 79 Unit/L 45-117 N CBC W/AUTO [id number] 17:49:00* Test Item Value Reference Range Interpretation [...] NRBC#) 0.0 K/mm3 0.0-0.1 N infectious disease cmbxm0814-23-29 03:20:00[facility] infectious disease csuyv3203-74-63 03:20:00Abnormal StatusPriv[facility] MedicalSURGICAL 2023-09-26 16:31:00* Test Item Value Reference Range Interpretation Comme nts SURGICAL (test code = SR) RUN DATE: 09/26/23 [facility] PAGE 1 RUN TIME: 1631 Specimen Inquiry RUN USER: INTERFACE PATIENT: MARIA DEL CARMEN RUIZ LOC: [place] U #: [id number] AGE/SX: 37/F ROOM: RE09/23/23REG DR: Ashley Rodriguez MD : [birth year] BED: DIS: STATUS: [facility] TLOC: SPEC #: [id number]:[id number] RECD: 09/23/23 [facility] #: [id number] SANTY: 09/23/[address] [facility] [address]: Ashley Rodriguez MD ENTERED: 09/23/23 SP TYPE: SURGICAL OTHR DR: ORDERED: 50326, 81505, ANATOMIC SPEC, SPECIMEN TRACK PROCEDURES: 69638 (09/23/23-2009) 50805 (09/26/23-1629) SPECIMEN TRACK (09/23/23) TISSUES: A. UTERINE [...] CONTINUED ON NEXT PAGE RUN DATE: 09/26/23 [facility] PAGE 2 RUN TIME: 1631 Specimen Inquiry RUN USER: INTERFACE SPEC #: [id number]:[facility]:[id number] PATIENT: MARIA DEL CARMEN RUIZ #[id number] (Continued) GROSS DESCRIPTION (Continued) B1 posterior cervixB2 anterior cervixB3-B4 posterior endomyometrium B5-B6 anterior endomyometriumB7 posterior reflection B8-B11 left ovarian cyst B12 left fallopian tube cut surface with entire bisected fimbriated end B13 right fallopian tube cut surface with entire bisected fimbriated end Technical tissue processing and slide preparation performed [facility] [address] [address] , [place] [address] MICROSCOPIC DESCRIPTION A and B. Microscopic examination is performed and the findings are incorporated into thefinal diagnosis. Please see diagnosis for findings. Signed SIGNATURE ON FILE Yonathan Mattbibi 09/26/23 1631 END OF REPORT GLUCOSE BEDSIDE [id number] 13:09:00* Test Item Value Reference Range Interpretation Comme nts GLUCOSE BEDSIDE TESTING (anamaria t code = GLUBED) 85 mg/dL 70-110 N BASIC METABOLIC [id number] 12:19:00* Test Item Value Reference Range Interpretation [...] CA) 9.7 MG/DL 8.5-10.1 N CBC W/AUTO [id number] 12:06:00* Test Item Value Reference Range Interpretation [...] = NRBC#) 0.0 K/mm3 0.0-0.1 N URINALYSIS [id number] 12:00:00* Test Item Value Reference Range Interpretation [...] NEGATIVE Urine Specimen Type: Clean CatchUR HCG [id number] 12:00:00* Test Item Value Reference Range Interpretation Comme nts UR HCG QUAL (test code = HCGQLU) NEGATIVE NEGATIVE Urine Specimen Type: Clean CatchXR HAND <3 VW [id number] 21:43:26No sign of fracture or dislocation joint space is well-maintainedThe [facility] Date/Time Note Provider Source 2024-04-10 13:15:00 Pt given printed and verbal discharge instructions regarding abdominal pain, encouraged hydration. 1 Prescription sent to pharmacy. Discussed ibuprofen and to take with food to avoid GI distress. Discussed tramadol side affects and to avoid driving/operating machinery/or engaging in activities requiring alertness while taking. Pt verbalized understanding of instructions, pt awake alert oriented, resp reg unlabored, skin w/d, color appropriate for race, moves all ext well,pt encouraged to follow up with pcp. Advised to seek medical attention for new/prolonged/worsening of symptoms, Symptoms improved. No adverse reaction to meds given in ER noted upon discharge. PIV d'cd, dressing to site, catheter in tact. Awake, alert oriented, resp reg unlabored, skin w/d, pt leaving amb with steady gait, in no apparent distress. Heidi Dickson RN [facility] 2024-04-10 10:56:25 Report received from BLAYNE Slaughter [facility] 2024-04-10 09:13:23 Patient had a surgery in 01/30 and was just released to return to work and doesn't know if she pulled something at work or if it is infected. She had hysterectomy in Sep which started all of this. She denies n/v/d but has a little vaginal bleeding. Pain is in lower abdomen. Dionte Slaughter RN [facility] 2024-03-09 08:52:00 [facility] ([facility]) Clinical Note REPORT#:[id number] REPORT STATUS: Signed REPORT INITIALIZATION DATE:03/09/24 TIME: 851 PATIENT: MARIA DEL CARMEN RUIZ UNIT #: [id number] ROOM/BED: [address] : 85 AGE: 38 SEX: F ATTEND: Tomy Le MD ADM AUTHOR: Tomy Le MD REPT SERVICE DT/TIME: 03/09/24 0852 * ALL edits or amendments must be made on the electronic/computer document * Clinical Note Note: Point of clarification: This patient had an episode of sepsis after a surgery in September 2023 at a different hospital. She did not have sepsis with this admission- THIS IS NOT SEPSIS. at 0854 RPT #:[id number] END OF REPORT [facility] 2024-03-06 20:35:00 [facility] ([facility]) EMERGENCY PROVIDER REPORT REPORT#:[id number] REPORT STATUS: Signed DATE:03/06/24 TIME: 2034 PATIENT: MARIA DEL CARMEN RUIZ UNIT #: [id number] ROOM/BED: AGE: 38 SEX: F PCP PHYS: Undefined Provider SERVICE AUTHOR: Jordana Quevedo MD * ALL edits or amendments must be made on the electronic/computer document * HPI-Abd Pain F Under 40 General Initial Greet Date/Time 03/06/242030 Presentation Chief Complaint Abdominal pain, difficulty urinating Hx Obtained From Patient Free Text HPI Notes Free Text HPI Notes 38-year-old female 4 days status post exploratory laparoscopy with right oophorectomy and lysis of adhesions on 03/02/2024 presents with decreased urine output x 2 days. Patient states that when she uses the restroom she urinates very little. Denies dysuria. Associated with diffuse abdominal pain for which she last took her prescribed oxycodone at 1500 today. Denies nausea or vomiting. Also reports constipation. Patient states she has not had a bowel movement for at least 1 week. She denies fever. Patient states she has been taking MiraLAX daily without producing a bowel movement. Risk-Abd Pain F Under 40 )( Ectopic Risk factors N/A Review of Systems ROS Statements All systems rev neg except as marked. Focused Review of Systems Constitutional Denies: Fever. Respiratory Denies: Cough, non-productive, Cough, productive, Shortness of breath. Cardiovascular Denies: Chest pain. GI Reports: Abdominal pain, Constipation. Denies: Nausea, Rectal pain, Vomiting. Female Denies: . Musculoskeletal Denies: Back pain, Extremity pain, Extremity swelling. Past Medical History - Adult Stated Complaint URINARY RETENTION NO VOID X 2 DAYS Allergies Coded Allergies: Penicillins (Severe, HIVES 02/12/24) acetaminophen (From TYLENOL #3) (Intermediate, VOMITING 02/12/24) codeine (From TYLENOL #3) (Intermediate, VOMITING 02/12/24) levofloxacin (From LEVAQUIN) (Intermediate, VOMITING 02/12/24) tramadol (Intermediate, VOMITING 02/12/24) Uncoded Allergies: LICORICE (10/28/23) RASPBERRIES (10/28/23) Home Medications Active Scripts oxyCODONE 10 MG PO Q4H PRN PRN PRN PAIN 7-10 1ST CHOICE oxyCODONE 10 MG PO Q4H PRN PRN PRN PAIN 7-10 1ST CHOICE #20 TAB Prov: 03/03/24 IBUPROFEN (MOTRIN) 600 MG PO QID PRN PRN PAIN IBUPROFEN (MOTRIN) 600 MG PO QID PRN PRN PAIN #30 TABS Prov: 03/03/24 FLUCONAZOLE 150 MG PO EVERY 3 DAYS 15 Days #4 TAB Prov: 10/22/23 AMOXICILLIN/CLAV K (AUGMENTIN 875/125 MG) 875 MG PO Q12H 7 Days #14 TABS Prov: 11/10/23 ACETAMINOPHEN/CODEINE (TYLENOL WITH CODEINE #3 300/30 MG) 1 TAB PO Q4H PRN PRN ACUTE PAIN ACETAMINOPHEN/CODEINE (TYLENOL WITH CODEINE #3 300/30 MG) 1 TAB PO Q4H PRN PRN ACUTE PAIN #10 TABS Prov: 11/10/23 IBUPROFEN (MOTRIN) 800 MG PO TID PRN PRN PAIN IBUPROFEN (MOTRIN) 800 MG PO TID PRN PRN PAIN #30 TABS Prov: 11/10/23 KETOROLAC (TORADOL) 10 MG PO Q8H PRN PRN PAIN KETOROLAC (TORADOL) 10 MG PO Q8H PRN PRN PAIN #20 TABS Prov: 02/12/24 Discontinued Reported Medications TIRZEPATIDE (MOUNJARO PEN (2mL)) 5 MG SUBQ Q7D Physical Exam Vital Signs Vital Signs First Documented: Result Date Time Pulse Ox 100 03/06 2023 B/P 124/83 03/06 2023 B/P Mean 96 03/06 2023 O2 Delivery Room air 03/06 2023 Temp 98.3 03/06 2023 Pulse 86 03/06 2023 Resp 20 03/06 2023 Last Documented: Result Date Time Pulse Ox 100 03/06 2023 B/P 124/83 03/06 2023 B/P Mean 96 03/06 2023 O2 Delivery Room air 03/06 2023 Temp 98.3 03/06 2023 Pulse 86 03/06 2023 Resp 20 03/06 2023 Review of Vital Signs Reviewed Focused PE General/Const General/Const Awake, Alert, No acute distress, Well appearing, Well developed , Well hydrated, Well nourished, Cooperative, Not toxic appearing Resp/Chest Respiratory/Chest Atraumatic, Breath sounds NL, Breath sounds = bilat, No respiratory distress, No rales, No rhonchi Cardiovascular Cardiovascular Heart rate NL, Regular rhythm, Heart sounds NL, No gallop, No murmurs Abdomen/GI Text/Dict Notes Laparoscopic surgical incision wounds, clean, dry, intact without signs of infection mild diffuse abdominal tenderness with guarding. Normal active bowel sounds. MS Back Back Atraumatic, Inspection NL, No CVA tenderness Skin Skin Color NL, No rash, Warm, Dry, Intact, Turgor NL, No swelling Neurologic Neurologic Oriented X3, Speech NL, CN II - XII intact, Gait NL Interpretation Diagnostics Lab Results Interpretation Results Laboratory Tests: 03/06 2052 Urines Urine Color (YELLOW) YELLOW Urine Appearance (CLEAR) CLEAR Urine pH (5 - 9) 5.0 Ur Specific [place] (1.001 - 1.035) 1.027 Urine Protein (NEG) NEGATIVE Urine Glucose (UA) (NEG) NEGATIVE Urine Ketones (NEG) TRACE H Urine Blood (NEG) NEG Urine Nitrite (NEG) NEG Urine Bilirubin (NEG) NEGATIVE Urine Urobilinogen (NEG mg/dL) NEGATIVE Ur Leukocyte Esterase (NEG) NEG Urine RBC (NONE SEEN #/hpf) 0-2 Urine WBC (NONE SEEN #/hpf) 0-2 Ur Epithelial Cells (RARE - FEW #/HPF) RARE Urine Bacteria (RARE - FEW /HPF) RARE Urine Mucus (NONE SEEN) 1+ Re-Evaluation MDM Free Text MDM Notes Free Text MDM Notes Patient has her next appointment with her THEATRE INSTRUCTOR in 3 days on 03/09/2024. Additional Text Bladder scan by nursing demonstrates less than 20 cc of urine in bladder. Patient went to the bathroom in the ER and produced 100 cc of urine. ED Course Medication(s) Ordered Medication(s) Ordered: Cardiovascular Drugs Sig/Anmol Start time Last Medication Dose Route Stop Time Status Admin Lidocaine HCl 15 ML ONCE ONE 03/06 2045 DC MM 03/06 2046 Central Nervous System Agents Sig/Anmol Start time Last Medication Dose Route Stop Time Status Admin Oxycodone/ 1 TAB X1ED STA 03/064 DCr Acetaminophen PO 03/06 2245 Gastrointestinal Drugs Sig/Anmol Start time Last Medication Dose Route Stop Time Status Admin Glycerin 1 SUPP ONCE ONE 03/06 2200 DC RECTAL 03/06 2201 Consultation Consultation Referral/Consult Name Mary Joseph MD Publisher Assistant Called THEATRE INSTRUCTOR, On-call physician Publisher Assistant Agrees with keya, Agrees with plan Requested Call Time 2211 Requested Call Date 03/06/24 Call Returned Call returned Call Returned Time 2211 Call Returned Date 03/06/24 Free Text Consult Notes ok to d/c home Patient Discharge Departure Vital Signs/Condition Vital Signs First Documented: Result Date Time Pulse Ox 100 03/06 2023 B/P 124/83 03/06 2023 B/P Mean 96 03/06 2023 O2 Delivery Room air 03/06 2023 Temp 98.3 03/06 2023 Pulse 86 03/06 2023 Resp 20 03/06 2023 Last Documented: Result Date Time Pulse Ox 100 03/06 2023 B/P 124/83 03/06 2023 B/P Mean 96 03/06 2023 O2 Delivery Room air 03/06 2023 Temp 98.3 03/06 2023 Pulse 86 03/06 2023 Resp 20 03/06 2023 All vital signs available at the time of this entry have been reviewed. Condition Stable Clinical Impression Clinical Impression Primary Impression: Constipation Secondary Impressions: Postoperative abdominal pain Time of Impression 2245 Disposition Decision Discharge )( Discharged to Home Yes )( Time 2245 )( Date 03/06/24 Discharge/Care Plan Counseled Regarding Diagnosis, Lab results, Need for follow-up, When to return to ED Patient Instructions ED Constipation (Adult) Additional Instructions You may give yourself [id number] enemas or use glycerin suppositories to assist with bowel movements. Continue MiraLAX daily as well as Colace 100 mg twice daily. Discussed with your surgeon if you need further recommendations for resolving constipation. Return to the ER if you develop fever, difficulty urinating, severe worsening pain, or if you have any other acute concerns. Referrals Provider Referral: Tomy Le MD Follow-Up: As Scheduled Address: [address] [place] [id number] Discharge Note I have spoken with the patient and/or caregivers. I have explained the patient's condition, diagnoses and treatment plan based on the information available to me at this time. I have answered the patient's and/or caregiver's questions and addressed any concerns. The patient and/or caregivers have as good an understanding of the patient's diagnosis, condition and treatment plan as can be expected at this point. The vital signs have been stable. The patient's condition is stable and appropriate for discharge from the emergency department. The patient will pursue further outpatient evaluation with the primary care physician or other designated or consulting physician as outlined in the discharge instructions. The patient and/or caregivers are agreeable to this plan of care and follow-up instructions have been explained in detail. The patient and/or caregivers have received these instructions in written format and have expressed an understanding of the discharge instructions. The patient and/or caregivers are aware that any significant change in condition or worsening of symptoms should prompt an immediate return to this or the closest emergency department or a call to 911. at 2251 RPT #:[id number] END OF REPORT [facility] 2024-03-03 09:52:00 [facility] ([facility]) Discharge Summary REPORT#:[id number] REPORT STATUS: Signed REPORT INITIALIZATION DATE:03/03/24 TIME: 951 PATIENT: MARIA DEL CARMEN RUIZ UNIT #: [id number] ROOM[facility]BED: [facility] : 85 AGE: 38 SEX: F ATTEND: Tomy Le MD ADM AUTHOR: Tomy Le MD REPT SERVICE DT/TIME: 03/03/24951 * ALL edits or amendments must be made on the electronic/computer document * PCP PCP Discharge to: home General Information Problem List/A P: 1. Vaginal cuff cellulitis 2. Pelvic pain 3. Right ovarian cyst Date of admission: Observation Start Date: 03/02/24 Date of admission: 03/02/24 Discharge date: 03/03/24 Admission diagnosis: history of right ovarian cysts; stage 4 endometriosis, pelvicpain s/p TLH with cuff cellulitis. Discharge diagnosis: history of right ovarian cysts; stage 4 endometriosis, pelvicpain s/p TLH with cuff cellulitis, abdominal and pelvic adhesions Hospital course: Admitted for planned procedure, which was uncomplicated. Recovered well overnight, and by PPD 1 was tolerating PO, voiding, ambulating, and had pain well controlled. Discharge to home with close follow up. Associated exam: Gen: A Ox3, NAD Abd: soft, appropriately tender, ND, wounds c/d/i, no erythema Ext; wwp , no edema Med Rec PCP PCP: PCP: Tomy Le MD Med Rec Discharge meds: Start taking the following new medications: oxyCODONE (oxyCODONE) 10 MG TAB 10 MILLIGRAM ORAL EVERY 4 HOURS NEEDED. as needed for PRN PAIN 7-10 1ST CHOICE Qty = 20 No Refills IBUPROFEN (MOTRIN) 600 MG TAB 600 MILLIGRAM ORAL FOUR TIMES DAILY NEEDED. as needed for PAIN Qty = 30 No Refills Objective VS/I O Last Documented: Result Date Time Pulse Ox 98 03/03 0802 B/P 97/69 03/03 0802 B/P Mean 78.6 03/03 0802 O2 Delivery Room air 03/03 0802 Temp 98.2 03/03 0802 Pulse 70 03/03 0802 Resp 18 03/03 0802 O2 Flow Rate 5 03/02 1551 24 hour I O ending at 0700: 03/03 0700 03/02 1900 Intake Total 1340.00 1500.00 Output Total 500 580 Balance 840.00 920.00 Intake, IV 1100.00 1500.00 Intake, Oral 240 Number Voids 3 Output, 30 Estimated Blood Loss Output, Urine 500 550 Patient 125 lb Weight Weight Standing scale Measurement Method PATIENT WEIGHT: Weight (lb): 125 Weight (oz): 3.56 Weight (kg): 56.800 Results Findings/Data: Laboratory Tests: 03/03 03/03 03/02 0633 0403 1519 Chemistry POC Glucose (65 - 110 mg/dL) 69 101 Hematology WBC (6.5 - 12.3 K/mm3) 12.2 RBC (3.51 - 4.69 M/mm3) 4.30 Hgb (10.1 - 13.8 g/dL) 12.9 Hct (32.5 - 41.8 %) 39.3 MCV (84.6 - 96.6 fL) 91.4 MCH (27.3 - 33.9 pg) 30.0 MCHC (32.0 - 34.2 gm/dL) 32.8 RDW (12.2 - 16.3 %) 13.3 Plt Count (134 - 363 K/mm3) 344 MPV (9.2 - 12.7 fL) 9.6 Neut % (Auto) (57.9 - 77.3 %) 67.8 Lymph % (Auto) (14.5 - 29.7 %) 22.7 [place] % (Auto) (3.6 - 10.2 %) 8.6 Eos % (Auto) (0.0 - 3.0 %) 0.2 Baso % (Auto) (0.1 - 0.9 %) 0.4 Neut # (Auto) (K/mm3) 8.3 Lymph # (Auto) (K/mm3) 2.8 [place] # (Auto) (K/mm3) 1.1 Eos # (Auto) (K/mm3) 0.02 Baso # (Auto) (K/mm3) 0.1 Discharge Instructions PCP PCP: PCP: Tomy Le MD )( Discharge to: Home/Self Care Discharge Instructions Additional Discharge Routines: Add. instructions )( Diet: Diabetic )( Activity: Do not Submerge Incision, Light Duty, No Driving, No [place] for 6 Wks )( Additional instructions: Call for fever, increased pain, increased bleeding, or any concerning symptoms Prescriptions: e-prescribe Rx drug database reviewed: yes Discharge management: less than 30 mins, face to face encounter at 1218 RPT #:[id number] END OF REPORT [facility] 2024-03-02 15:07:00 [facility] ([facility]) Full Op Note REPORT#:[id number] REPORT STATUS: Signed REPORT INITIALIZATION DATE:03/02/24 TIME: 150 PATIENT: MARIA DEL CARMEN RUIZ UNIT #: [id number] ROOM/BED: [address] : 85 AGE: 38 SEX: F ATTEND: Tomy Le MD ADM AUTHOR: Tomy Le MD REPT SERVICE DT/TIME: 03/02/24 1507 * ALL edits or amendments must be made on the electronic/computer document * Operative Report ORM Surgeries: Surgery Date and Time: 03/02/2024 1230 Primary Procedure: LAPAROSCOPIC EXPLORATORY WITH VAGINAL Secondary Procedures: LAPAROSCOPIC RIGHT OOPHERCTOMY LAPAROSCOPIC LYSIS ADHESIONS CYSTOSCOPY Start date: 03/02/24 Start time: 1209 Pre-procedure diagnosis: persistent vaginal cuff pain, history of ovarian cysts, family history of ovarian cancer, stage 4 endometriosis Post-procedure diagnosis: persistent vaginal cuff pain, history of ovarian cysts, family history of ovarian cancer, stage 4 endometriosis, extensive adhesions Procedures performed: Laparoscopic right oophorectomy, extensive lysis of adhesions > 60 minutes, revision of the vaginal cuff, cystoscopy. Technique/Procedure: Risks/benefits/alternatives were discussed with the patient, and she agreed and wished to proceed. The patient was taken to the operating room, and general anesthesia was obtained without difficulty. The patient was positioned supine in yellowfin stirrups, with her arms tucked at her sides. She was prepared and draped in the usual sterile fashion. A red rubber catheter was placed, with immediate urine return. 0.25% xylocaine was used to infiltrate all port sites. A transverse LUQ 5 mm incision was made with the scalpel through her prior scar, and the trochar was advanced under direct visualization. Pneumoperitoneum was obtained. Bilateral 5mm ports were then placed (left one 2cm superior to the ASIS and 2 cm medial, right one slightly higher but using a prior scar). The abdomen was noted to have extensive adhesions of the omentum and bowel to the anterior of the mid- abdomen. These were lysed with a combination of Harmonic scalpel and cold scissors. The cavity was explored, including a normal liver edge, stomach, and appendix. Attention was turned to the pelvis. There were adhesions of the sigmoid to the left pelvic sidewall, which were likewise lysed in an attempt to define the anatomy of the ureter. However, denser adhesions of the rectum to the posterior vaginal cuff prevented full mobilization. The right ovary was normal in apperance. There was a white 1.5 cm nodule on the left pelvic sidewall anterior to the IP, which was possibly consistent with residual ovarian tissue vs scar tissue. There were bilateral 1cm nodules on each side of the vaginal cuff suture line, consistent with the increased density of suture material at the starting loop and at the final edge where 1-2 additional sutures are often overlapped before cutting the excess. additional areas of dense tissue were idenified along the cuff line similar to granulomatous tissue, with visible residual suture material. The lateral nodules were excised using the harmonic, being mindful of the identified path of the ureter on the right and the suspected path on the left. They were found to contain bits of material consistent with residural suture, nonviable appearing tissue, and small pockets of mucoid material. These were removed. The additional areas of denser tissue along the cuff line were also resected. In so doing, the vagina was entered on the left of midline at the scar line. Once all dense tissue and suture material was removed abdominally, the pneumoperitoneum was released. THe cuff was examined by palpation, and additional nodular areas were noted. An operative speculum was placed vaginally. The angles of the cuff were marked with Gabriela clamps, and the nodular areas were resected, opening the cuff along the prior scar line. Once the abnormal areas of tissue were removed, the cuff was closed with interrupted sutures of 0-vicryl, taking care to incorporate the peritoneum. The cuff was hemostatic. All instruments were removed from the vagina. A cystoscope was advanced into the bladder. The bladder was examined and found to be intact, with no lesions. The bilateral ureters were identified, and found to have active efflux. The cystoscope was removed, and the catheter was replaced briefly to drain the bladder from the cystoscopy, then removed at the end of the procedure. Returning to the abdomen, the pneumoperitoneum was resumed. The abdomen and pelvis were copiously irrigated and suctioned, all areas of operation were examined, and found to be hemostatic. The cuff was intact. The air was allowed to escape from the ports, and all ports were removed. The skin was closed with 4 -0 monocryl in subcuticular fashion with dermabond on top. Sponge, lap, and needle counts were correct x 2. Patient tolerated the procedure well, and was extubated then transferred to the PACU for further monitoring. publisher assistant necessary for standard of care. Sfdc Developer responsible for retraction, blotting, additional instrumentation, tying and cutting suture, making the operative field clear, and otherwise assisting the primary surgeon. Primary Surgeon: Alexander Galeas Sfdc Developer(s): Gregor Cesar Anesthesia: general anesthesia Operative findings: Normal liver edge, stomach, appendix. Extensive adhesions of the bowel and omentum to the anterior abdominal wall at the mid-abdomen, and of the sigmoid to the left pelvic wall and posterior vaginal cuff. Normal right ovary. Left 1.5 cm white tissue mass adherent to the pelvic sidewall. 1cm area of dense tissue/ residual suture at the lateral edge of the cuff angle on each side; with additional smaller areas of density along the suture line, with residual suture material. Normal bladder and b/l ureter efflux. 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 Postop complications of an abscess of the retained right ovary, cuff cellulitis. Had a PICC line with vancomycin x 6 wks to treat this; removed 12/30. Since that time, she has continued to have intermittent fevers, pain down into her vagina. 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 Resumed sex in January, was having bleeding with sex. Rectal prolapse noted only postop, causing pain. 02/2024 CT with no abscess noted in the pelvis. Quit smoking cigarettes in October, has been cutting back significantly on vaping. Current medications: estradiol patch 0.075mg, metrogel PV PMH: DM, PCOS, enodmetriosis stage 4, former smoker, currently vaping, BRCA neg, cuff prolapse PSH: cholecystectomy 2006; umbilical hernia repair with mesh 04/2015, 09/2023- robotic TLH, LSO Family Hx; ovarian cancer, breast cancer. DM Social Hx: . 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 + vaping, quit cigarettes, no etoh, no illicits. OB Hx: x 3 Allergies: PCN, tramadol, levaquin Hospitalizations: childbirth; post-hyst infection History Medication/Allergy-Vaccine Hx Allergies: Coded Allergies: Penicillins (ITCHING 02/24/24) levofloxacin (From LEVAQUIN) (ANAPYLACTIC REACTION 02/24/24) Review of Systems Constitutional: Reports: fatigue, malaise. : Reports: pelvic pain. All systems rev neg: except as marked Physical Exam VS/I O PATIENT WEIGHT: Weight (lb): 125 Weight (oz): 3.56 Weight (kg): 56.800 Results Findings/Data: Laboratory Tests Test Result Date Time Chemistry Sodium (136 - 145 mEq/L) 140 / 1150 Potassium (3.4 - 4.5 mEQ/L) 3.9 02/23 1150 Chloride (98 - 107 mEq/L) 109 H 02/23 1150 Carbon Dioxide (22 - 31 mEq/L) 23 02/23 1150 Anion Gap (10 - 20) 11.9 02/23 1150 BUN (8 - 23 mg/dL) 18 02/23 1150 Creatinine (0.55 - 1.02 mg/dL) 0.8 / 1150 Glomerular Filtr Rate (>60 ml/min) 96.66 02/23 1150 Glucose (74 - 106 mg/dL) 103 02/23 1150 Calcium (8.3 - 10.6 mg/dL) 9.4 02/23 1150 Total Bilirubin (0.3 - 1.2 mg/dL) 0.2 L 02/23 1150 Direct Bilirubin (< 0.3 mg/dL) 0.1 02/23 1150 AST (< 34 units/L) 25 02/23 1150 ALT (10 - 49 units/L) 39 02/23 1150 Total Alk Phosphatase (46 - 116 units/L) 71 02/23 1150 Total Protein (5.7 - 8.2 g/dL) 6.5 02/23 1150 Albumin (3.2 - 4.8 g/dL) 4.4 / 1150 Hematology WBC (6.5 - 12.3 K/mm3) 10.0 02/23 1150 RBC (3.51 - 4.69 M/mm3) 4.39 02/23 1150 Hgb (10.1 - 13.8 g/dL) 13.3 02/23 1150 Hct (32.5 - 41.8 %) 39.9 02/23 1150 MCV (84.6 - 96.6 fL) 90.9 02/23 1150 MCH (27.3 - 33.9 pg) 30.3 02/23 1150 MCHC (32.0 - 34.2 gm/dL) 33.3 02/23 1150 RDW (12.2 - 16.3 %) 13.7 02/23 1150 Plt Count (134 - 363 K/mm3) 352 / 1150 MPV (9.2 - 12.7 fL) 11.0 / 1150 Neut % (Auto) (57.9 - 77.3 %) 61.6 / 1150 Lymph % (Auto) (14.5 - 29.7 %) 30.0 H / 1150 Beltrami % (Auto) (3.6 - 10.2 %) 6.3 / 1150 Eos % (Auto) (0.0 - 3.0 %) 1.2 / 1150 Baso % (Auto) (0.1 - 0.9 %) 0.7 / 1150 Neut # (Auto) (K/mm3) 6.2 / 1150 Lymph # (Auto) (K/mm3) 3.0 / 1150 [place] # (Auto) (K/mm3) 0.6 / 1150 Eos # (Auto) (K/mm3) 0.12 / 1150 Baso # (Auto) (K/mm3) 0.1 / 1150 Free Text PE Notes Free Text PE Notes: Gen: A Ox3, NAD Abd: soft, no masses, no HSM, mild RLQ TTP, no rebound, no guarding. normal external genitalia. vagina: healthy pink mucosa, cuff acutely tender to palpation, appears intact, + prolapse + right adnexa mildly tender; no masses Diagnosis, Assessment Plan Problem List/A P: 1. Vaginal cuff cellulitis 2. Pelvic pain 3. Right ovarian cyst Free Text DxA P Notes Free Text DxA P Notes: 38y s/p robotic TLH, LSO, SRINIVASA for endometriosis, presenting with persistent pain , low grade fever postop and s/p treatment for postop sepsis. Extensive discussion of risks/benefits of surgery discussed. Will proceed with exploratory laparoscopy with RSO (pt considered, and desires removal since she has had symptoms of premature ovarian failure since her first procedure, h/o cysts causing pain previously, and with a family history of ovarian cancer). Will also plan for vaginal cuff revision using vicryl suture for closure rather than the v-loc previously used. She does desire treatment for the cuff prolapse that she has noted since the hsyterectomy, but agrees with the plan for a staged approach given her lingering symptoms since that first procedure. Risks include pain, infection, bleeding, damage to structures in the pelvis, need for additional procedures, need for an open procedure, lack of wound healing, lack of resolution of her pain. ALl questions answered. at 0811 RPT #:[id number] END OF REPORT [facility] 2024-02-24 12:44:00 [id number] [facility] [address] [place], [place] [address] PATIENT NAME: MARIA DEL CARMEN RUIZ ADMIT DATE: ACCOUNT NO: [id number] ROOM NO: AGE: 38 SEX: F ADMITTING PHYSICIAN: ATTENDING PHYSICIAN: Tomy Le MD Order: [id number] Test Reason : PRE-OP / (03/02/2024) Test Date/Time Stamp: SatFeb 24 2024 12:44:43 Blood Pressure : / mmHG Vent. 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 Jose Galeas who has a complicated gynecologic surgical history. In Sep, 2023 she underwent Hyst/LSO that was complicated by pelvic abscess and vaginal cuff cellulitis that required PICC line and prolonged home IV Vanc therapy. Currently, she is planning ex-lap/SRINIVASA/ RSO on 03/[address] Jose Galeas for continued pelvic pain and right ovarian cyst in the setting of known Stage IV endometriosis. Tonight she presented to ED with 2 days of persistent right lower quadrant and vaginal pain. She was started on Flagyl on 02/09 for BV noted on recent clinic vaginal swab testing. She is taking the antibiotic and reports less appetite but does eat crackers. History Past Surgical History Past surgical history: Reports: Hysterectomy (Ventral hernia repair). Additional surgical history: Left oophorectomy, cholecystectomy, umbilical hernia repair, bilateral salpingectomy Social History Alcohol use: Denies EtOH use Drug use: Denies recreational drugs Medication/Allergy-Vaccine Hx Allergies: Coded Allergies: Penicillins (Severe, HIVES 02/12/24) acetaminophen (From TYLENOL #3) (Intermediate, VOMITING 02/12/24) codeine (From TYLENOL #3) (Intermediate, VOMITING 02/12/24) levofloxacin (From LEVAQUIN) (Intermediate, VOMITING 02/12/24) tramadol (Intermediate, VOMITING 02/12/24) Uncoded Allergies: LICORICE (10/28/23) RASPBERRIES (10/28/23) Review of Systems Additional notes: 10 systems reviewed and neg with exception of the above pertinent positives Objective Physical Exam VS/I O: Last Documented: Result Date Time Pulse Ox 99 02/11 1918 B/P 139/88 02/11 1918 B/P Mean 105 02/11 1918 O2 Delivery Room air 02/11 1918 Temp 98.8 02/11 1918 Pulse 81 02/11 1918 Resp 17 02/11 1918 PATIENT WEIGHT: Weight (lb): Weight (oz): Weight (kg): 57.000 General appearance: alert, awake, conversational, face symmetrical, no acute distress, mental status normal, does appear anxious but settles with counseling and education HEENT: moist mucosal membranes Neck: full range of motion, supple Respiratory: no distress, no tenderness, aerating well Abdomen: soft, no distention, no guarding, no hernia, no mass/organomegaly, no rebound, TTP of RLQ Extremities: full range of motion 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 palpation of cuff is normal as well, no nodularities or masses appreciated. Vagina: normal Adnexal: Right - Tender Results Findings/Data: Laboratory Tests 02/11 2042 Chemistry Sodium (136 - 145 mEq/L) 141 Potassium (3.4 - 4.5 mEQ/L) 3.6 Chloride (98 - 107 mEq/L) 112 H Carbon Dioxide (22 - 31 mEq/L) 27 Anion Gap (10 - 20) 5.6 L BUN (8 - 23 mg/dL) 11 Creatinine (0.55 - 1.02 mg/dL) 0.8 Glomerular Filtr Rate (>60 ml/min) 96.66 Glucose (74 - 106 mg/dL) 91 Calcium (8.3 - 10.6 mg/dL) 9.3 Total Bilirubin (0.3 - 1.2 mg/dL) 0.2 L AST (< 34 units/L) 19 ALT (10 - 49 units/L) 35 Total Alk Phosphatase (46 - 116 units/L) 74 Total Protein (5.7 - 8.2 g/dL) 7.1 Albumin (3.2 - 4.8 g/dL) 4.8 Lipase (12 - 53 units/L) 52 Laboratory Tests 02/11 2042 Hematology WBC (6.5 - 12.3 K/mm3) 11.7 RBC (3.51 - 4.69 M/mm3) 4.31 Hgb (10.1 - 13.8 g/dL) 13.2 Hct (32.5 - 41.8 %) 38.3 MCV (84.6 - 96.6 fL) 88.9 MCH (27.3 - 33.9 pg) 30.6 MCHC (32.0 - 34.2 gm/dL) 34.5 H RDW (12.2 - 16.3 %) 13.1 Plt Count (134 - 363 K/mm3) 353 MPV (9.2 - 12.7 fL) 9.8 Neut % (Auto) (57.9 - 77.3 %) 59.9 Lymph % (Auto) (14.5 - 29.7 %) 31.1 H Bel[place] % (Auto) (3.6 - 10.2 %) 7.3 Eos % (Auto) (0.0 - 3.0 %) 1.0 Baso % (Auto) (0.1 - 0.9 %) 0.5 Neut # (Auto) (K/mm3) 7.0 Lymph # (Auto) (K/mm3) 3.6 Bel[place]ami # (Auto) (K/mm3) 0.9 Eos # (Auto) (K/mm3) 0.12 Baso # (Auto) (K/mm3) 0.1 Laboratory Tests 02/11 2042 Urines Urine Color (YELLOW) YELLOW Urine Appearance (CLEAR) Slightly-Cloudy Urine pH (5 - 9) 5.0 Ur Specific [place] (1.001 - 1.035) 1.025 Urine Protein (NEG) NEGATIVE Urine Glucose (UA) (NEG) NEGATIVE Urine Ketones (NEG) NEGATIVE Urine Blood (NEG) NEG Urine Nitrite (NEG) NEG Urine Bilirubin (NEG) NEGATIVE Urine Urobilinogen (NEG mg/dL) NEGATIVE Ur Leukocyte Esterase (NEG) NEG Urine RBC (NONE SEEN #/hpf) 0-2 Urine WBC (NONE SEEN #/hpf) 3-5 H Ur Epithelial Cells (RARE - FEW #/HPF) RARE Urine Bacteria (RARE - FEW /HPF) RARE Urine Mucus (NONE SEEN) 1+ Radiology Data: Recent Impressions: CAT SCAN - CT ABD PELVIS W/CONT 02/11 2139 Report Impression - Status: SIGNED Entered: 02/12/20242219 IMPRESSION: No abscess detected. Impression By: [email or web address] - Dewey Martinez MD Results: labs reviewed, vital signs reviewed, vital signs stable, CT results reviewed, current med profile rev'd Diagnosis, Assessment Plan Diagnosis, Assessment Plan Assessment/Plan: Care Recommendations 1. May have dose of Tordal 30mg IM/IV prior to discharge home tonight, recommend prn heat therapy and nsaids 2. She has f/u with Dr. Jose Galeas on 02/23 and OR scheduled for 03/02 A/P: 38 y/o with h/o Stage IV endometriosis, and most recently s/p hyst/lso c/b pelvic abscess and vaginal cuff cellulitis (now resolved). Now with a known right ovarian cyst and currently being treated for BV noted on recent clinic testing. -Labs are normal, no leukocytosis or left shift noted -CT is normal, no evidence of acute abdominal/pelvic etiology to her current pain. -VS are normal/afebrile, and her pain improves after exam and reassurance of most likely etiology which is right ovarian cyst and known endometriosis, as well as BV being treated with Flagyl. After sitting and talking with patient for a while tonight her affect improved and she began to smile and feel reassured that her assessment is normal tonight-she asked if she could get dressed and go home now. -Offered her dose of tordal prior to going home. told her I would email Dr. Jose galeas to be sure she is aware of this ED visit. -Gave the patient strict ED return precautions as well. at 2323 RPT #:[id number] END OF REPORT [facility] 2024-02-12 19:40:00 [facility] ([facility]) EMERGENCY PROVIDER REPORT REPORT#:[id number] REPORT STATUS: Signed DATE:02/12/24 TIME: 1939 PATIENT: MARIA DEL CARMEN RUIZ UNIT #: [id number] ROOM/BED: AGE: 38 SEX: F PCP PHYS: Ashley Rodriguez MD SERVICE AUTHOR: Brooks Duran MD * ALL edits or amendments must be made on the electronic/computer document * HPI-Abd Pain F Under 40 Free Text HPI Notes Free Text HPI Notes Patient is a 38F with PMHx of hysterectomy, bilateral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 UROBILIN Normal Normal BILIRUBIN Negative Negative NITRITE Negative Negative LEUK DAYSI 25/uL (*) Negative RBC/HPF 2 0 - 3 HPF WBC/HPF 7 (*) 0 - 5 HPF BACTERIA Few (*) Negative SQ EPITH 5 HPF LIPASE - Normal LIPASE 157 0 - 220 U/L LACTIC ACID WHOLE BLOOD - Normal LACTIC ACID 1.22 0.50 - 2.20 mmol/L BLOOD CULTURE SCREEN BLOOD CULTURE SCREEN Imaging CT ABDOMEN PELVIS W CONTRAST Final Result EXAM: CT ABDOMEN/PELVIS WITH CONTRAST HISTORY: Abdominal abscess/infection suspected WBC 19 concern for colitis/diverticulitis/perfora tion recent hysterectomy (09/23/2023) COMPARISON: None. TECHNIQUE: Contiguous axial imaging from the level of the lung bases through the proximal thighs was performed after the administration of intravenous contrast. Coronal and sagittal reconstructions were obtained. Auto mA and/or iterative reconstruction were used to reduce radiation dose. FINDINGS: LOWER THORAX: The lungs bases are clear. No cardiomegaly. LIVER: No focal hepatic lesions. Focal fatty infiltration along the falciform ligament. Normal contour. GALLBLADDER AND BILIARY TREE: Prior cholecystectomy. Mild central intrahepatic biliary ductal prominence, probably due to reservoir phenomenon. SPLEEN: No splenomegaly. PANCREAS: No ductal dilation or masses. ADRENAL GLANDS: No adrenal nodules. KIDNEYS: No hydronephrosis, stones, or masses. PERITONEUM AND RETROPERITONEUM: No free air or free fluid to suggest viscus perforation. Changes of prior anterior abdominal wall herniorrhaphy. LYMPH NODES: Slightly prominent bilateral iliac lymph nodes, measuring up to 6-7 mm in short axis bilaterally (2:85-86). A prominent 8 mm left para-aortic lymph node at the lateral renal vein (2:37). A prominent 8 mm right lower quadrant mesenteric lymph node (2:38). Multiple tiny perirectal lymph nodes (2:100-105) GI TRACT: No dilation. Circumferential proximal sigmoid wall thickening. PELVIS/BLADDER: Prior hysterectomy. There is a fluid collection with incompletely rim enhancement at the surgical bed on the left, just superior to the vaginal stump, measuring 2.8 x 1.8 x 1.4 cm (AP by TV by CC), on images 2:100, 6:62. A smaller structure at the right side of the vaginal stump, surgical bed, approximately measuring 1.1 x 2.1 x 1.0 cm (AP by TV by CC) on the images 2:101, 6:50, inseparable from adjacent small bowel loops, possibly small bowel loop versus additional small collection. Significant surrounding fat stranding in the central pelvis. The right ovary is not clearly delineated from adjacent small bowel loops, but possibly unremarkable (2:98). The left ovary is not clearly visualized, but possibly located adjacent to the iliac vessels (2:88). The urinary bladder is mildly distended, unremarkable. VESSELS: Scattered atherosclerotic predominantly noncalcified atherosclerotic plaque in the aorta and bilateral common femoral arteries. Less than 50% stenosis at the bilateral common femoral arteries. BONES AND SOFT TISSUES: No suspicious lytic or sclerotic bony lesions. IMPRESSION Status post hysterectomy. Irregular fluid collection at the surgical bed near the vaginal stump on the left with incomplete rim enhancement and significant surrounding pelvic fat stranding, concerning for early abscess formation. Another smaller apparent collection at the right side of the vaginal stump, possibly another fluid collection versus small bowel loop. Multiple prominent bilateral iliac chain and scattered abdominal lymph nodes, probably reactive. Short segment proximal sigmoid colonic wall thickening, probably reactive. No convincing evidence of viscus perforation. Prior anterior abdominal wall herniorrhaphy. Prior cholecystectomy. Orders and Treatments Orders Placed This Encounter Procedures CT ABDOMEN PELVIS W CONTRAST CBC WITH DIFF COMP. METABOLIC PANEL (27048) LIPASE URINALYSIS BLOOD CULTURE SCREEN BLOOD CULTURE SCREEN Lactic Acid Whole Blood Lactic Acid Whole Blood Orders Placed This Encounter Medications NaCl 0.9% (NS) bolus infusion 1,000 mL ondansetron (ZOFRAN (PF)) injection 4 mg FENTanyl PF (SUBLIMAZE (PF)) injection 75 mcg iopamidol (ISOVUE 370-500 mL) injection 100 mL morpHINE (4 mg/mL) injection 4 mg clindamycin in 5 % dextrose (CLEOCIN) 900 mg/50 mL IV piggyback RTU 900 mg gentamicin 150 mg in NaCl 0.9% (NS) NaCl 0.9% (NS) bolus infusion 1,000 mL morpHINE (4 mg/mL) injection 4 mg FENTanyl PF (SUBLIMAZE (PF)) injection 75 mcg Procedures Procedures Notes & MDM Patient was evaluated for an emergency medical condition related to Abdominal Pain DDX Diverticulitis Colitis Constipation ED Course as of 11/07/232258 [place] Nov 07, [id number] Transfer initiated [DN] ED Course User Index [DN] Jocelyn Torrez MD Diagnosis/Impression as of 11/07/232258 Lower abdominal pain Postoperative infection, unspecified type, initial encounter Medical Decision Making Problems Addressed: Lower abdominal pain: acute illness or injury Postoperative infection, unspecified type, initial encounter: acute illness or injury Amount and/or Complexity of Data Reviewed Labs: ordered. Decision-making details documented in ED Course. Radiology: ordered and independent interpretation performed. Decision-making details documented in ED Course. Risk Prescription drug management. Parenteral controlled substances. Decision regarding hospitalization. Limitations to patient care and compliance: none. Assessment/Summary: The patient is a 30-year-old female who presents [...] gentamicin. The patient request to go to [facility]. She was accepted by Dr. Titus to be she was transferred in stable condition. History, physical exam findings, results of visit, differential diagnosis, medication regimens and plan of future care have been considered. Additional MDM may be found in the ED course. Differential diagnosis considered and final disposition made based on information gathered during evaluation and may not be completely ruled out or specifically listed. Vital signs were rechecked before final disposition. Diagnosis Final diagnoses: [R10.30] Lower abdominal pain (Primary) [T81.40XA] Postoperative infection, unspecified type, initial encounter Disposition & Follow Up ED Disposition None Patient's Medications START taking these medications No medications on file CONTINUE taking these medications which have NOT CHANGED IBUPROFEN 600 MG TABLET Take 1 tablet by mouth every 6 (six) hours as needed for Pain (scale 4-6). START taking Modified Medications as Prescribed No medications on file STOP taking these medications No medications on file Jocelyn Torrez Jr., MD Clinical Stores Assistant [facility] Emergency Department [employer] Dictation Software is used frequently and may produce errors. Promptly contact for obvious discrepancies. Joceyln Torrez MD 11/07/232245 Jocelyn Torrez MD 11/07/232258 [facility] 2023-10-23 09:10:00 [facility] ([facility]) Hospitalist Discharge Summary REPORT#:[id number] REPORT STATUS: Signed REPORT INITIALIZATION DATE:10/23/23 TIME:909 PATIENT: MARIA DEL CARMEN RUIZ UNIT #: [id number] ROOM/BED: [place] [address] : 85 AGE: 38 SEX: F ATTEND: Mack Pack MD ADM AUTHOR: Mack Pack MD REPT SERVICE DT/TIME: 10/23/23 0910 * ALL edits or amendments must be made on the electronic/computer document * General Information Discharge date: 10/23/23 Discharge diagnosis: # Pelvic pain with vaginal discharge -S/p hysterectomy 09/23/2022 complicated by infection x 2 - Hospital course: # Pelvic pain with vaginal discharge -S/p hysterectomy 09/23/2022 complicated by infection x 2 -THEATRE INSTRUCTOR Dr. Rodriguez has been consulted -Continue IV Zosyn antibiotic for empirical coverage -Pain management with as needed morphine -Further management per Dr. Rodriguez She responded well to treatment and is being discharged to home today in a stable condition with an advise to follow up with PCP in 1 week and also with OBGYN in 1 week Consultants: OBGYN Med Rec Med Rec Discharge meds: Stop taking the following medications: TIRZEPATIDE (MOUNJARO PEN (2mL)) 10 MG/0.5 ML PEN.INJCTR 10 MILLIGRAM SUBCUTANEOUS EVERY 7 DAYS. Start taking the following new medications: Hydrocodone/Acetaminophen (HYDROcodone/APAP 7.5/325) 7.5 MG-325 MG TAB 1 [...] for PAIN Qty = 20 No Refills Objective VS/I O Last Documented: Result Date Time Pulse Ox 100 10/23 717 B/P 143/98 10/23 717 B/P Mean 112.9 10/23 717 O2 Delivery Room air 10/23 717 Temp 97.9 10/23 717 Pulse 80 10/23 717 Resp 16 10/23 717 General appearance: alert Head/Eyes: atraumatic, normocephalic, PERRLA ENT: moist mucosal membranes, normal dentition, normal nose Neck: full range of motion, non-tender, no JVD Cardiovascular: normal capillary refill, normal heart sounds, regular rate rhythm Respiratory: aerating well, clear to auscultation, symmetric expansion, no distress Abdomen: non-tender, normal bowel sounds, soft, no distention Genitourinary: no flank pain Vascular pulse assess: Palpatated: R radial, L radial, R dorsalis pedis, L dorsalis pedis. Neuro/HEATING UNIT INSTALLER: alert, oriented X 3, CNII-XII intact Skin: dry, intact, normal color, normal temperature, no rash Psychiatry: normal affect, normal mood Discharge Instructions PCP Discharge to: Home/Self Care Additional Discharge Routines: PCP Follow-Up, Publisher Assistant Follow-Up Diet: Resume Home Diet/Feeds Discharge management: greater than 30 mins Follow-up Appointments PCP follow-up: PCP: Ashley Rodriguez MD PCP follow up timeframe: In 1-2 weeks at 2059 [facility] #: [id number] [facility] 2023-10-22 17:53:00 [id number] [facility] [address] [place] [address] PATIENT NAME: MARIA DEL CARMEN RUIZ ADMIT DATE: 10/22/23 ACCOUNT NO: [id number] ROOM NO: [facility] AGE: 38 REPORT TYPE: CONSULTATION SEX: F ADMITTING PHYSICIAN: Mack Pack MD ATTENDING PHYSICIAN: Mack Pack MD CONSULTATION DATE: 10/22/2023 REASON FOR CONSULTATION: Postop, the patient with pelvic pain, possible vaginal cuff cellulitis. HISTORY OF PRESENT ILLNESS: The patient is a 38-year-old, status post hysterectomy on September 23, she underwent a robotic total laparoscopic hysterectomy, bilateral salpingectomy, endometriosis excision. She had been admitted to the hospital for vaginal cuff cellulitis with a high white count and a fever. Had been suspected of having a vaginal cuff cellulitis, given clindamycin due to her allergies to penicillin and Levaquin. On more than 10 days of clindamycin, she complained about a fever of 101 and presented to the office with abnormal vaginal discharge and some pelvic pain. On examination, her vaginal cuff was intact, however, her pain was extremely disproportionate to her symptoms. She was sent to the ER for evaluation. In the emergency room, she had a white count of 9.1 with no left shift. CT scan negative for any bowel trauma or pelvic abscess. [...] with a low AST and ALT. Albumin level is very low at 2.9 and albumin globulin ratio is also very low. Likely poor nutrition from her poor appetite postop as well as complicated by the Mounjaro. PAST MEDICAL HISTORY: Significant for prediabetes. PATIENT NAME: MARIA DEL CARMEN RUIZ PAST SOCIAL HISTORY: Current smoker, quit right at the time of surgery and is on weightbear using pure nicotine. Chronic back pain also is run of her medical problems. SURGICAL HISTORY: As mentioned, significant for robotic total laparoscopic hysterectomy, bilateral salpingectomy, endometriosis excision. CURRENT MEDICATIONS: Mounjaro once every week. ALLERGIES: TO RASPBERRIES, ____, PENICILLIN ITSELF WITH HIVES AND RASH, LEVAQUIN, NAUSEA AND VOMITING. Vital signs as above. ASSESSMENT AND PLAN: 1. Possible vaginal cuff cellulitis related to her pelvic pain. Given her Zosyn 3.375 grams q. 8 hours. She has received 2 doses, unclear if the third dose was given, but there is another scheduled third dose [...] the nutrition. She has been counseled on this. 3. Prediabetes. She has been recommended to stop the Mounjaro for at least 3 months postop, so that her nutrition could be better and that the gut motility could be facilitating her to eat better. Protein requirements of 1.5-2 grams per kilogram has been discussed with the patient. 4. Smoking cessation has been reviewed with the patient, the complications. The plan has been communicated with Dr. Pack, who is a hospitalist taking care of the patient. Dictated By: Ashley Rodriguez MD Date Dictated: 10/22/2023 17:53:50 Date Transcribed: 10/22/2023 20:48:38 JERRILinda/EMELIA/LALITA Receipt ID: [id number] Authenticated by Ashley Rodriguez MD On 12/20/2023 05:28:08 PM at 0528 PATIENT NAME: MARIA DEL CARMEN RUIZ [facility] 2023-10-22 14:21:00 [facility] Hospitalist Progress Note REPORT#:[id number] REPORT STATUS: Signed REPORT INITIALIZATION DATE:10/22/23 TIME:1420 PATIENT: MARIA DEL CARMEN RUIZ UNIT #: [id number] ROOM/BED: [address] : [address] AGE: 38 SEX: F ATTEND: Mack Pack MD ADM AUTHOR: Mary Ellen Chin MD REPT SERVICE DT/TIME: 10/22/23 1421 * ALL edits or amendments must be made on the electronic/computer document * Subjective Chief complaint: Pelvic pain and discharge HPI: 38-year-old female presents to the emergency department with complaints of lower abdominal pain. She reports she had hysterectomy done on the of last month and then she started feeling this pelvic pain and bloody-mucoid discharge about 2-3 days ago. Patient was seen by her [employer] fscm developer today and was sent over for further evaluation for concerns of possible pelvic abscess. Patient has been on antibiotics by her [employer] fscm developer. CT A/P with no abnormal finding. Patient is admitted for antibiotic therapy and further management with OBGYN consultation. Objective General VS/I O: Vital Signs: Date Time Temp Pulse Resp B/P B/P Pulse O2 O2 Flow FiO2 Mean Ox Delivery Rate 10/22 1236 98.4 88 15 121/87 98.6 100 Room air 10/22 0808 98.1 75 15 145/94 111.2 99 Room air 10/22 0428 98.4 84 16 115/83 94.1 99 02/13 0230 84 122/84 98 100 10/22 0000 [...] (lb): Weight (oz): Weight (kg): 57.727 Physical Exam General appearance: alert, awake Head/Eyes: atraumatic, normocephalic, PERRLA ENT: moist mucosal membranes, normal dentition, normal nose Neck: full range of motion, non-tender, no JVD Cardiovascular: normal capillary refill, normal heart sounds, regular rate rhythm Respiratory: aerating well, clear to auscultation, symmetric expansion, no distress Abdomen: non-tender, normal bowel sounds, soft, no distention Genitourinary: no flank pain Vascular pulse assess: Palpatated: R radial, L radial, R dorsalis pedis, L dorsalis pedis. Neuro/HEATING UNIT INSTALLER: alert, oriented X 3, CNII-XII intact Skin: dry, intact, normal color, normal temperature, no rash Psychiatry: normal affect, normal mood Results Findings/Data: Laboratory Tests 10/22 10/21 0443 1954 Chemistry Sodium [...] (0.8 - 1.2 INR Unit) 1.05 PTT ([place]) (26 - 35 SECONDS) 26.9 PT Patient/Control [...] (Auto) (20.5 - 51.1 %) 33.7 34.0 [place] % (Auto) (1.7 - 9.3 %) 10.1 H 9.4 H Eos % (Auto) (0.0 - 6.0 %) 5.2 3.1 Baso % (Auto) (0.0 - 2.0 %) 0.8 0.8 Neut # (Auto) (1.8 - 7.6 K/mm3) 4.3 4.8 Lymph # (Auto) (0.6 - 3.2 K/mm3) 2.9 3.1 [place] # (Auto) (0.3 - 1.1 K/mm3) 0.9 [...] - 7.0 pH UNITS) 6.0 Ur Specific [place] (1.005 - 1.030 SG) <=1.005 Urine Protein (NEG mg/dL) NEGATIVE Urine Glucose (UA) (NEG mg/dL) NEGATIVE Urine Ketones (NEG mg/dL) NEGATIVE Urine Blood (NEG mg/DL) TRACE H Urine Nitrite (NEG SCREEN) NEGATIVE Urine Bilirubin (NEG mg/dL) NEGATIVE Urine Urobilinogen (<2.0 mg/dL) 0.2 Ur Leukocyte Esterase (NEGATIVE Leuk/mcL) NEGATIVE Radiology data: Recent Impressions: CAT SCAN - CT ABD PELVIS W/CONT 10/21 1835 Report Impression - Status: SIGNED Entered: 10/21/2023 190 IMPRESSION: No acute abdominal or pelvic abnormality. Impression By: Marie Hudson M.D. Interpretation I independently reviewed the [ ] and my interpretation is [ ] Diagnosis, Assessment Plan Consultants: OBGYN Free Text DxA P Notes Free text DxA P notes: # Pelvic pain with vaginal discharge -S/p hysterectomy 09/23/2022 complicated by infection x 2 -THEATRE INSTRUCTOR Dr. Rodriguez has been consulted -Continue IV Zosyn antibiotic for empirical coverage -Pain management with as needed morphine -Further management per Dr. Rodriguez DVT prophylaxis: SCDs GI prophylaxis: PEPCID Disposition Anticipated: Home with family support. Time Spent on Patient Care, Coordination and Counselin min. Code Status: Full code. at 1423 RPT #: [id number] [facility] 2023-10-21 21:20:00 [facility] ([facility]) Hospitalist History Physical REPORT#:[id number] REPORT STATUS: Signed REPORT INITIALIZATION DATE:10/21/23 TIME:2119 PATIENT: MARIA DEL CARMEN RUIZ UNIT #: [id number] ROOM/BED: [place] [address] : 85 AGE: 38 SEX: F ATTEND: Mack Pack MD ADM AUTHOR: Jacy Quick I APRNNP REPT SERVICE DT/TIME: 10/21/232119 * ALL edits or amendments must be made on the electronic/computer document * Jacy Quick I 10/21/232119: History of Present Illness HPI Chief complaint: Pelvic pain and discharge PCP: PCP: Ashley Rodriguez MD HPI: 38-year-old female presents to the emergency department with complaints of lower abdominal pain. She reports she had hysterectomy done on the of last month and then she started feeling this pelvic pain and bloody-mucoid discharge about 2-3 days ago. Patient was seen by her peoplesoft fscm developer today and was sent over for further evaluation for concerns of possible pelvic abscess. Patient has been on antibiotics by her peoplesoft fscm developer. CT A/P with no abnormal finding. Patient is admitted for antibiotic therapy and further management with OBGYN consultation. Hx Obtained From Patient, Prior medical records History Smoking status for patients 13 years old or older: Current every day smoker Medication/Allergy-Vaccine Hx Allergies: Coded Allergies: Penicillins (Mild, RSAH 10/21/23) levofloxacin (From LEVAQUIN) (THROAT SWELLING 10/21/23) Uncoded Allergies: LICORICE (03/01/09) RASPBERRIES (03/01/09) Review of Systems Musculoskeletal: other (pelvic pain). Objective General VS/I O: Vital Signs: Date Time Temp Pulse Resp B/P B/P Pulse O2 O2 Flow FiO2 Mean Ox Delivery Rate 10/22 0000 85 21 126/83 100 100 10/21 2300 88 21 117/85 98 100 / 2200 89 34 137/90 109 100 10/21 2155 90 26 138/91 109 100 10/21 1700 99.0 103 17 133/93 106 100 Room air 24 hour I O ending at 0700: 10/22 0700 10/21 1900 Intake Total Output Total Balance Patient 57.727 kg Weight Weight Stated/Reported Measurement Method PATIENT WEIGHT: Weight (lb): Weight (oz): Weight (kg): 57.727 Medications: Active Meds + DC'd Last 24 Hrs Famotidine (PEPCID) 20 MG BID AC PO Piperacillin Sod/Tazobactam Sod (ZOSYN) 3.375 GM Q8HR IV Sodium Chloride (SODIUM CHLORIDE 0.9%) 100 ML Acetaminophen (TYLENOL) 650 MG Q4H PRN PRN PO Al Hydrox/Mg Hydrox/Simethicone (MYLANTA) 30 ML Q4H PRN PRN PO Docusate Sodium (COLACE) 100 MG BID PRN PRN PO Hydralazine HCl (APRESOLINE) 10 MG Q6H PRN PRN IV Hydrocodone Bitart/Acetaminophen (NORCO 7.5/325) 1 TAB Q6H PRN PRN PO Ondansetron HCl (ZOFRAN) 4 MG Q6H PRN PRN IV Sodium Chloride (0.9% Sodium Chloride) 1,000 ML .[id number] IV Tramadol HCl (ULTRAM) 50 MG Q6H PRN PRN PO Zolpidem Tartrate (AMBIEN) 5 MG BEDTIME PRN PRN PO Sodium Chloride (0.9% Sodium Chloride) 1,000 ML ONCE ONE IV (DC) Piperacillin Sod/Tazobactam Sod (ZOSYN) 3.375 GM X1ED STA IV (DC) Sodium Chloride (SODIUM CHLORIDE 0.9%) 100 ML Iopamidol (ISOVUE-300) 0 .STK-MED ONE IV (DC) Sodium Chloride (0.9% Sodium Chloride) 50 ML .STK-MED ONE IV (DC) Physical Exam General appearance: alert, awake, oriented, no acute distress Head/Eyes: atraumatic, normocephalic, PERRLA ENT: moist mucosal membranes, normal dentition, normal nose Neck: full range of motion, non-tender, no JVD Cardiovascular: normal capillary refill, normal heart sounds, regular rate rhythm Respiratory: aerating well, clear to auscultation, symmetric expansion, no distress Abdomen: non-tender, normal bowel sounds, soft, no distention Genitourinary: no flank pain Vascular pulse assess: Palpatated: R radial, L radial, R dorsalis pedis, L dorsalis pedis. Neuro/HEATING UNIT INSTALLER: alert, oriented X 3, CNII-XII intact Skin: dry, intact, normal color, normal temperature, no rash Psychiatry: normal affect, normal mood Results Findings/Data: Laboratory Tests 10/21 10/21 1954 1731 Chemistry Sodium [...] % (Auto) (20.5 - 51.1 %) 34.0 [place] % (Auto) (1.7 - 9.3 %) 9.4 H Eos % (Auto) (0.0 - 6.0 %) 3.1 Baso % (Auto) (0.0 - 2.0 %) 0.8 Neut # (Auto) (1.8 - 7.6 K/mm3) 4.8 Lymph # (Auto) (0.6 - 3.2 K/mm3) 3.1 [place] # (Auto) (0.3 - 1.1 K/mm3) 0.9 [...] - 7.0 pH UNITS) 6.0 Ur Specific [place] (1.005 - 1.030 SG) <=1.005 Urine Protein (NEG mg/dL) NEGATIVE Urine Glucose (UA) (NEG mg/dL) NEGATIVE Urine Ketones (NEG mg/dL) NEGATIVE Urine Blood (NEG mg/DL) TRACE H Urine Nitrite (NEG SCREEN) NEGATIVE Urine Bilirubin (NEG mg/dL) NEGATIVE Urine Urobilinogen (<2.0 mg/dL) 0.2 Ur Leukocyte Esterase (NEGATIVE Leuk/mcL) NEGATIVE Radiology data: Recent Impressions: CAT SCAN - CT ABD PELVIS W/CONT 10/21 1835 Report Impression - Status: SIGNED Entered: 10/21/2023 190 IMPRESSION: No acute abdominal or pelvic abnormality. Impression By: Marie Hudson M.D. Results: labs reviewed, vital signs reviewed, vital signs stable Diagnosis, Assessment Plan Problem List/A P: 1. Abdominal pain 2. Vaginal [...] Active Intake Output 10/21 2108 Active Consultants: OBGYN Plan discussed with: patient, consultants, nurse Time spent: Time spent on patient care (minutes): 45 Code Status/Resusc. Discussion Code status: full code Free Text DxA P Notes Free Text DxA P Notes: # Pelvic pain with vaginal discharge - possible pelvic infection -THEATRE INSTRUCTOR Dr. Rodriguez has been consulted -Continue IV Zosyn antibiotic for empirical coverage -Pain management with as needed hydrocodone -CBC with differential next a.m. -Further management per Dr. Rodriguez DVT prophylaxis: SCDs GI prophylaxis: PEPCID Disposition Anticipated: Home with family support. Time Spent on Patient Care, Coordination and Counselin min. Code Status: Full code. Mack Pack 10/23/23 1301: Attestations Physician Attestation Agree w/findings plan: Appreciate note from GARMENT MENDER Agree with the history and physical findings Lab works noted Imaging noted as well Findings were discussed with the PETERSON and Staff at 1231 at 1301 RPT #: [id number] [facility] 2023-10-21 17:54:00 [facility] ([facility]) EMERGENCY PROVIDER REPORT REPORT#:[id number] REPORT STATUS: Signed DATE:10/21/23 TIME:1753 PATIENT: MARIA DEL CARMEN RUIZ UNIT #: [id number] RO[address]/BED: [address] : 85 AGE: 38 SEX: F PCP PHYS: Ashley Rodriguez MD SERVICE AUTHOR: Joe Torres GARMENT MENDER * ALL edits or amendments must be made on the electronic/computer document * Joe Torres 10/21/231753: HPI-Abd Pain F 40 and Over Free Text HPI Notes Free Text HPI Notes 38-year-old female presents to the emergency department with complaints of lower abdominal pain. Patient was seen by her peoples[employer] fscm developer today and was sent over for further evaluation for concerns of possible pelvic abscess. Patient has been on antibiotics by her peoples[employer] fscm developer. Patient also reports vaginal discharge. General Confirmed Patient Yes Initial Greet Date/Time 10/21/23 1650 Presentation Chief Complaint Abdominal pain Hx Obtained From Patient, Prior medical records Sudden in Onset? No Caused by No trauma by history Quality Painful Associated with Reports: Chills, Fever, Vaginal bleeding, Vaginal discharge. Denies: Dysuria, Shortness of breath, Urinary frequency, Urinary retention, Urinary tract symptoms, Vomiting. Exacerbated by Nothing Relieved by Nothing Risk-Abd Pain F 40 and Over )( Abdominal Aortic Aneurysm Risk factors reviewed Review of Systems ROS Statements All systems rev neg except as marked. Basic Review of Systems Basic ROS EYES: No redness, ENT: No sore throat, HEM: No bleeding/bruising, SKIN : No rash, NEURO: No change MS, NEURO: No focal deficit, PSYCH: NL thought content Past Medical History - Adult Stated Complaint NEED A CAT SCAN AND BLOOD WORK Allergies Coded Allergies: Penicillins (Mild, RSAH 10/21/23) levofloxacin (From LEVAQUIN) (THROAT SWELLING 10/21/23) Uncoded Allergies: LICORICE (03/01/09) RASPBERRIES (03/01/09) Calculated Suicide Risk (nurs) No risk Smoking status for patients 13 years old or older: Current every day smoker Physical Exam Vital Signs Vital Signs First Documented: Result Date Time Pulse Ox 100 10/21 1700 B/P 133/93 / 1700 B/P Mean 106 / 1700 O2 Delivery Room air 10/21 1700 Temp 37.2 10/21 1700 Pulse 103 10/21 1700 Resp 17 10/21 1700 Last Documented: Result Date Time Pulse Ox 100 10/21 1700 B/P 133/93 10/21 1700 B/P Mean 106 / 1700 O2 Delivery Room air 10/21 1700 Temp 37.2 10/21 1700 Pulse 103 10/21 1700 Resp 17 10/21 1700 Review of Vital Signs Reviewed Free Text PE Notes Free Text PE Notes General/Const: Awake, Alert, No acute distress, Well appearing, Well hydrated, MS Head: Atraumatic, Normocephalic Eyes Atraumatic: EOMI, No nystagmus, No periorbital swelling, No scleral icterus Ears/Nose/Throat: Atraumatic, Airway patent, Mucous membranes moist, Pharynx NL, No trismus MS Neck: Atraumatic, Supple, No meningismus, Full range of motion Respiratory/Chest: Atraumatic, Breath sounds NL, Breath sounds = bilat, No respiratory distress Cardiovascular: Heart rate NL, Regular rhythm, Cap refill not delayed, Peripheral circulation NL Abdomen/GI: Atraumatic, Soft, tender in suprapubic, no distention Back: Atraumatic, Full range of motion, Non-tender Skin: Skin Atraumatic, Color NL, No rash, Warm, Dry, Intact, Turgor NL, No swelling Neurologic: Oriented X3, Speech NL, No motor deficits, Cerebellar NL, Memory NL, Gait NL Psychiatric: Affect NL, Mood NL, Cognitive function NL, Judgment/insight NL, Thought content NL Interpretation Diagnostics Lab Results Interpretation Considerations Independ review imaging Results Laboratory Tests 10/21/23 173: [Embedded Image Not Available] Laboratory Tests: 10/21 1730 Chemistry Sodium (134 - [...] % (Auto) (20.5 - 51.1 %) 34.0 [place] % (Auto) (1.7 - 9.3 %) 9.4 H Eos % (Auto) (0.0 - 6.0 %) 3.1 Baso % (Auto) (0.0 - 2.0 %) 0.8 Neut # (Auto) (1.8 - 7.6 K/mm3) 4.8 Lymph # (Auto) (0.6 - 3.2 K/mm3) 3.1 [place] # (Auto) (0.3 - 1.1 K/mm3) 0.9 [...] - 7.0 pH UNITS) 6.0 Ur Specific [place] (1.005 - 1.030 SG) <=1.005 Urine Protein [...] 1731 Blood Culture - COMP BLOOD Recent Impressions: CAT SCAN - CT ABD PELVIS W/CONT 10/21 1835 Report Impression - Status: SIGNED Entered: 10/21/20231906 IMPRESSION: No acute abdominal or pelvic abnormality. Impression By: Marie Hudson M.D. Lab Imaging Statement Laboratory radiographic studies reviewed and considered in the medical decision-making. Re-Evaluation MDM )( Re-Evaluation/Progress #1 )( Re-Eval Status Improved Plan Post Re-Eval Plan admit ED Course Patient Course Stable Notes Reviewed Specialist/consult note Consultation Consultation Referral/Consult Name Ashley Rodriguez MD Publisher Assistant Called THEATRE INSTRUCTOR Publisher Assistant Discussed with exchange underwriting consultant, Will see patient Requested Call Date 10/21/23 Call Returned Call returned Free Text Consult Notes Discussed lab and imaging reports, requested patient to be admitted to hospital service, IV antibiotics initiated, and will see patient. Differential Diagnosis )( Differential Diagnosis Acute abdominal pain, Bladder outlet obstruct, Bowel obstruction, Diverticular disease, Postop complication, Sepsis?, Urinary tract infection Findings/Social Determinants Presentation Subacute Severity Evaluation Serious condition Diagnosis Appears Evident Patient Discharge Departure Clinical Impression Clinical Impression Primary Impression: Abdominal pain Disposition Decision Hospitalize Hosp Physician Name Mack Pack MD [facility] Physician Hospitalist Request Time 1928 Request Date 10/21/23 )( Accepts Hospitalization Yes )( Reason for Hospitalization Abdominal pain )( Accepted Time 1928 )( Accepted Date 10/21/23 Call Information will see patient Discharge/Care Plan Counseled Regarding Diagnosis, Lab results, Imaging studies, Need for admission Admit Note I have spoken with the patient and/or caregivers. I have explained the patient's condition, diagnoses and treatment plan based on the information available to me at this time. I have answered the patient's and/or caregiver's questions and addressed any concerns. The patient and/or caregivers have as good an understanding of the patient's diagnosis, condition and treatment plan as can be expected at this point. The patient has been stabilized within the capability of the emergency department. The patient will be transported for further care and management or will be moved to an observation or inpatient service. I have communicated with the staff or medical practitioner taking over this patient's care. Wei Hyman 10/21/23 2675: Past Medical History - Adult Home Medications Discontinued Reported Medications TIRZEPATIDE (MOUNJARO PEN (2mL)) 10 MG SUBQ Q7D Interpretation Diagnostics ECG #1 Interpretation Text/Dict Note Sinus rhythm with sinus arrhythmia rate 72, normal axis, QTc 431, no STEMI, as read by me. Re-Evaluation MDM ED Course Medication(s) Ordered Medication(s) Ordered: Diagnostic Agents Sig/Anmol Start time Last Medication Dose Route Stop Time Status Admin Iopamidol 0 .STK-MED ONE 10/21 180 DC 10/21 IV 1833 Electrolytic, Caloric, And Lynn Sig/Anmol Start time Last Medication Dose Route Stop Time Status Admin Sodium Chloride 50 ML .STK-MED ONE 10/21 180 DC 10/21 IV 1833 Patient Discharge Departure Vital Signs/Condition Vital Signs First Documented: Result Date Time Pulse Ox 100 10/21 1700 B/P 133/93 / 1700 B/P Mean 106 / 1700 O2 Delivery Room air 10/21 1700 Temp 37.2 / 1700 Pulse 103 / 1700 Resp 17 10/21 1700 Last Documented: Result Date Time Pulse Ox 100 10/21 1700 B/P 133/93 / 1700 B/P Mean 106 / 1700 O2 Delivery Room air 10/21 1700 Temp 37.2 10/21 1700 Pulse 103 10/21 1700 Resp 17 10/21 1700 All vital signs available at the time of this entry have been reviewed. Discharge/Care Plan (Auto) Prescriptions Current Visit Scripts AMOXICILLIN/CLAV K (AUGMENTIN 875/125 MG) 875 MG PO [...] PRN PAIN #20 TABS Free Text Depart Notes Free Text Depart Notes This patient was assigned to me in error and I was not involved in care. at 0027 at 0813 RPT #: [id number] [facility] 2023-09-23 19:46:00 [id number] [facility] [address] [place] [address] PATIENT NAME: MARIA DEL CARMEN RUIZ ADMIT DATE: 09/23/23 ACCOUNT NO: [id number] ROOM NO: AGE: 38 REPORT TYPE: OPERATIVE [...] pelvic cavity, cystoscopy. SURGEON: Ashley Rodriguez MD CLUB FORMER: Joe Pettit. ANESTHESIA: General endotracheal. FINDINGS: Anterior [...] informed consent was verified, the patient was taken back to the OR. She is a diabetic and smoker. was stopped for prevention of aspiration pneumonia and for avoidance of complications from gastroparesis before the procedure. A1c was decently controlled. CA-125 was normal. The patient was evaluated, given options of treatment and given significant pelvic pain. She wanted to proceed with hysterectomy, left oophorectomy. She wanted a stage I. Both ovaries preserved if possible for [...] Betadine. Arms tucked by the side. The patient was anxious preoperatively and postoperatively when she woke [...] a balloon. Then, an 8 port was placed in left lateral aspect, 8 cm apart from [...] grasped with single tooth tenaculum, dilated to 16-Bermudian and 3.5 cm cup uterine manipulator was [...] The endometrium had drained at its attachment to the uterosacral ligament. Once this was all suctioned [...] pedicle that was isolated, it was cauterized and cut with the bipolar and monopolar and posterior peritoneum taken down towards the uterus, dropping the ureter down. The ureter was densely adhered to the medial aspect of the peritoneal reflection. Endometriosis was excised from here to the uterosacral ligament, keeping the ureter safe. The vessels were identified and ureter was difficult dissected the ureter tunnel and that was adhered to the [...] wall. Then, uterine vessels were fully exposed on the left side and I moved on to [...] as well. Then, going on the left side, the endometriosis was excised from the distal nodular [...] was performed with a 30-degree lens, a 17-Bermudian sheath and normal saline. Excellent jets of urine from both ureteral orifices. No evidence of any trauma to the bladder. Bladder was then partially drained and the patient was taken from anesthesia and taken to PACU in stable condition. She had with around and sister, debriefed about her procedure. Dictated By: Ashley Rodriguez MD Date Dictated: 09/23/2023 19:46:56 Date Transcribed: 09/23/2023 22:13:34 DUNIA/EMELIA/DALIA/NICOLE Receipt ID: [id number] Authenticated by Ashley Rodriguez MD On 10/21/2023 05:24:23 PM at 0524 PATIENT NAME: MARIA DEL CARMEN RUIZ [facility] 2023-09-23 18:56:00 [facility] ([facility]) Brief Op Note REPORT#:[id number] REPORT STATUS: Signed REPORT INITIALIZATION DATE:09/23/23 TIME:1855 PATIENT: MARIA DEL CARMEN RUIZ UNIT #: [id number] ROOM/BED: : 85 AGE: 37 SEX: F ATTEND: Ashley Rodriguez MD ADM AUTHOR: Ashley Rodriguez MD REPT SERVICE DT/TIME: 09/23/231855 * ALL edits or amendments must be made on the electronic/computer document * Op/Inv Proc Note - Brief Pre-procedure diagnosis: pelviuc pain left complex ovarian cyst Post-procedure diagnosis: pelvic pain, stage 4 endometriosis, adhesions to the ventral hernia mesh Procedures performed: diagnostic laaproscopy, extensive lysis of adhesions, Robotic TLH bilateral salpingectomy, left oophorectomy adn endometrioma excision, endometriosis excision, cystoscopy Primary Surgeon: michael Sfdc Developer(s): joe pettit Anesthesia: general anesthesia Findings: left ovarian endometrioma, left adhered to left posterior broad lig, lateral wall, ureter, USL, endo on right USL tiny spot ablated, nodular endo from left excised, right ovary normal, cuff closed in two layers with 2-0 v lock, anterio ventral hernia mesh repair with dense adhesions that had to be taken down before robotic ports could be placed, both UOs were patent, no trauma Complications: none Estimated blood loss in ml's: 75 Specimens removed/altered: uterus and both tubes and left ovary, left USL endo Fluids: 1000 Urine output: 150 Approach: laparoscopic, robotic Wound class: clean/contaminated Disposition: plan to D/C home Counts: Sponge count: correct Instrument count: correct Needle count: correct at 1914 RPT #: [id number] [facility]
[2024-04-20] MEDS ORDERED: NA CHLORIDE 0.9% 1,000 ML ONE (20:23)
[2024-04-20] MEDS ORDERED: MORPHINE 4 MG/ML SYR ONE ×2 (20:23→23:09)
[2024-04-20] MEDS ORDERED: ONDANSETRON 4 MG/2 ML VIAL ONE (20:23)
[2024-04-20 22:20] LABS: Absolute Basophils 0.1 K/uL (0-0.5); Absolute Eosinophils 0.1 K/uL (0-0.5); Absolute Lymphocytes (CBC) 2.4 K/uL (0.7-4.9); Absolute Monocytes 0.9 K/uL (0.1-1.3); Absolute Neutrophil 14.3 K/uL (1.8-8.0); Basophils % 0.4 % (0-1.3); Eosinophils % 0.7 % (0-4.4); Hematocrit 40.1 % (36.0-45.0); Hemoglobin 13.1 g/dL (12.0-15.0); Lymphocytes % 13.7 % (15.3-44.8); MCH 29.3 pg (27.0-35.0); MCHC 32.7 g/dL (32.0-36.0); MCV 89.7 fL (80-100); MPV 7.9 fL (7.6-11.3); Neutrophils % 80.2 % (41.7-73.7); Nucleated Red Blood Cells % 0.1 % (0-0); Platelets 353 thou/uL (152-406); RBC Red Blood Cell Count 4.47 M/uL (3.86-4.86); Red Cell Distribution Width 13.1 % (12.1-15.2)
[2024-04-20 22:39] LABS: Albumin 4.1 g/dL (3.4-5.0); Albumin/Globulin Ratio 1.2 (1.1-1.8); Anion Gap 11.9 mEq/L (5.0-15.0); Bilirubin Total 0.7 mg/dL (0.2-1.0); Globulin 3.3 g/dL (2.3-3.5); Potassium 3.9 mEq/L (3.5-5.1); Protein, Total 7.4 g/dL (6.4-8.2)
[2024-04-20] MEDS ORDERED: MORPHINE 2 MG/ML SYR ONE (23:09)
[2024-04-21] MEDS ORDERED: METOCLOPRAMIDE 10 MG/2mL INJ ONE (01:14)
[2024-04-21] MEDS ORDERED: METHOCARBAMOL 1,000 MG/10 ML VIAL ONE (01:14)
[2024-04-21] MEDS ORDERED: CEFTRIAXONE 1000 MG/VIAL ONE (01:14)
[2024-04-21] MEDS ORDERED: NA CHLORIDE 0.9% 100 ML ONE (01:15)
[2024-04-21] MEDS ORDERED: FENTANYL CITR 100 MCG/2 ML ONE ×4 (01:15→12:09)
[2024-04-21] MEDS ORDERED: METRONIDAZOLE 500mg IVPB 500 MG/100 ML BAG IV ONE (01:46)
--- NOTE | 2024-04-21 02:43 | EDPHYS ---
Physician Documentation [facility] Name: Maria Del Carmen Stokes Age: 38 yrs Sex: Female : 1985 Arrival Date: 04/20/2024 Time: 19:08 Bed 3 Private MD: ED Physician Semaj Guerrero HPI: 04/20 20:03 This 38 yrs old Female presents to ER via Ambulatory with complaints of Post sp4 surgery bleeding 4 weeks, Vaginal Bleeding. 20:04 History of hysterectomy. sp4 20:38 Patient had a complicated hysterectomy in September. Had a revision surgery at [facility] about 5 weeks ago. The patient bent over, to lift an object, felt a pop in the noticed bleeding vaginally. Reports that it is more than spotting but less than a period. Patient reports no abdominal pain. Denies other acute complaints at this time, symptoms are moderate severity, no other aggravating alleviating factors. Patient took 800 of Motrin, and Ultram to no relief.. Historical: - Allergies: 19:26 Codeine; cm10 19:26 Levaquin; cm10 19:26 PENICILLINS; cm10 - PMHx: 19:26 ADD/ADHD; cm10 - PSHx: 19:26 Cholecystectomy; hernia; Total abdominal hysterectomy; cm10 - Immunization history:: Adult Immunizations up to date. - Infectious Disease History:: Denies. - Social history:: Smoking status: unknown. - Family history:: not pertinent. ROS: 20:38 Constitutional: Negative for fever, chills, and weight loss, Cardiovascular: Negative rt for chest pain, palpitations, and edema, Respiratory: Negative for shortness of breath, cough, wheezing, and pleuritic chest pain, 20:38 MS/Extremity: Negative for injury and deformity, Skin: Negative for injury, rash, and discoloration, 20:38 Abdomen/GI: Positive for abdominal pain, Negative for nausea and vomiting, 20:38 : Positive for vaginal bleeding, Negative for injury or acute deformity, Exam: 20:38 Constitutional: This is a well developed, well nourished patient who is awake, alert, rt and in no acute distress. Head/Face: Normocephalic, atraumatic. Chest/axilla: Normal chest wall appearance and motion. Nontender with no deformity. No lesions are appreciated. Cardiovascular: Regular rate and rhythm with a normal S1 and S2. No gallops, murmurs, or rubs. Normal PMI, no JVD. No pulse deficits. Respiratory: Lungs have equal breath sounds bilaterally, clear to auscultation and percussion. No rales, rhonchi or wheezes noted. No increased work of breathing, no retractions or nasal flaring. Skin: Warm, dry with normal turgor. Normal color with no rashes, no lesions, and no evidence of cellulitis. MS/ Extremity: Pulses equal, no cyanosis. Neurovascular intact. Full, normal range of motion. Neuro: Awake and alert, GCS 15, oriented to person, place, time, and situation. Cranial nerves II-XII grossly intact. Motor strength 5/5 in all extremities. Sensory grossly intact. Cerebellar exam normal. Normal gait. 20:38 Abdomen/GI: Tenderness to the lower abdomen with mild guarding, no rebound, distention, Vital Signs: 19:23 BP 144 / 85; Pulse 96; Resp 18; Temp 98.4(O); Pulse Ox 99% on R/A; Weight 50.8 kg; cm10 Height 5 ft. 1 in. ; Pain 8/10; 20:37 BP 122 / 60; Pulse 88; Resp 16; Pulse Ox 100% ; Pain 8/; [facility] 23:17 BP 118 / 68; Pulse 72; Resp 14; Temp 98; Pulse Ox 100% ; [facility] 04/21 00:53 BP 124 / 68; Pulse 82; Resp 14; Pain 8/10; [facility] 01:47 Pain 2/10; [facility] 02:02 BP 129 / 84; Pulse 66; Resp 14; Pulse Ox 100% ; Pain 2/10; [facility] 04:30 BP 105 / 74; Pulse 66; Resp 14; Pulse Ox 100% ; Pain 8/; [facility] 05:31 BP 102 / 68; Pulse 64; Resp 14; Pulse Ox 100% ; Pain 2/10; [facility] 04/20 19:23 Body Mass Index 21.16 (50.80 kg, 154.94 cm) cm10 04/20 19:23 Pain Scale: Adult cm10 20:37 Pain Scale: Adult [facility] 04/21 00:53 Pain Scale: Adult [facility] 01:47 Pain Scale: Adult jm12 02:02 Pain Scale: Adult jm12 04:30 Pain Scale: Adult jm12 05:31 Pain Scale: Adult jm12 MDM: 04/20 19:29 Patient medically screened. rt 04/21 01:12 ED course: EXAM: CTAbdomen and Pelvis With Intravenous Contrast CLINICAL HISTORY: sp4 Abdominal pain, reported gynecological surgery 5 weeks ago. TECHNIQUE: Axial computed tomography images of the abdomen and pelvis with intravenous contrast. Sagittal and coronal reformatted images were created and reviewed. This CT exam was performed using one or more of the following dose reduction techniques: automated exposure control, adjustment of the mA and/or kV according to patient size, and/or use of iterative reconstruction technique. COMPARISON: CTAbdomen pelvis with contrast 12/31/2023. FINDINGS: Lung bases: Unremarkable. No mass. No consolidation. ABDOMEN: Liver: Unremarkable. No mass. Gallbladder and bile ducts: Prior cholecystectomy. Mild intrahepatic and extrahepatic biliary dilatation progressed from the prior. The common duct measures prior ventral hernia repair. Pancreas: Unremarkable. No mass. No ductal dilation. Spleen: Unremarkable. No splenomegaly. Adrenals: Unremarkable. No mass. Kidneys and ureters: Unremarkable. Normal renal cortical enhancement. No calculi. No hydronephrosis. Stomach and bowel: Moderate stool in the proximal to mid large bowel. No obstruction. No identifiable mucosal thickening. PELVIS: Appendix: The appendix is mildly enlarged and minimally hyperemic measuring 8 mm in maximum diameter. Bladder: The urinary bladder is decompressed. Reproductive: Prior hysterectomy again noted. No adnexal cysts or masses are identified. ABDOMEN and PELVIS: Intraperitoneal space: There are few small foci of the right subdiaphragmatic free air. Mild infiltrative changes within the lower pelvis and a small amount of free fluid. There are few gas foci in the right paracentral lower pelvis which are not definitively intraluminal. Bones/joints: No acute fracture. No dislocation. Soft tissues: Prior ventral hernia repair. Vasculature: Unremarkable. No abdominal aortic aneurysm. Lymph nodes: Unremarkable. No enlarged lymph nodes. IMPRESSION: 1. There are a few free gas foci within the right upper quadrant and within the lower pelvis. There are mild infiltrative changes and a small amount of free fluid. In light of reported history of surgery, findings may be related to peritonitis and the gas foci potentially residual post operative. 2. The appendix is more pronounced on the current study and appears somewhat hyperemic. Although findings may be reactive, the possibility of acute appendicitis with microperforation cannot be excluded on the basis of this examination. 3. Other findings as above. THIS REPORT CONTAINS FINDINGS THAT MAYBE CRITICAL TO PATIENT CARE: The findings were verbally discussed via telephone conference with Dr. Semaj Guerrero on 04/21/2024 1:03 AM CDT. The results were acknowledged and understood. . 02:42 Differential diagnosis: appendicitis. Data reviewed: vital signs, nurses notes, old sp4 medical records, lab test result(s), radiologic studies, CT scan. ED course: Spoke with Dr. Martinez who accepts patient for consult . 04/20 19:32 Order name: CBC with Diff; Complete Time: 22:36 rt 04/20 19:32 Order name: CMP; Complete Time: 23:00 rt 04/20 19:32 Order name: Lipase; Complete Time: 23:00 rt 04/20 19:32 Order name: CT Abd/Pelvis - IV Contrast Only rt 04/21 03:17 Order name: CONS Physician Consult EDMS 04/20 19:32 Order name: IV Saline Lock; Complete Time: 00:12 rt 04/20 19:32 Order name: Labs collected and sent; Complete Time: 00:12 rt 04/21 01:11 Order name: Pelvic Exam Setup; Complete Time: 02:02 sp4 Administered Medications: 02:39 Discontinued: Rocephin - rocephin (ceftriaxone)1 grams IVPB once over 30 mins; (mix in [facility] 50 mL NS) 02:38 Discontinued: [id number] mg 100 ml IVPB at 200 ml/hr once over 30 mins [facility] 04/20 22:06 Drug: Ondansetron IVP 4 mg IVP once; over 2 minutes Route: IVP; Site: left antecubital; [facility] 22:45 Follow up: Response: Marked relief of symptoms [facility] 22:06 Drug: morphine IVP or IV 4 mg IVP once over 4 mins Route: IVP; Infused Over: 4 mins; [facility] Site: left antecubital; 22:45 Follow up: Response: No change in condition [facility] 23:16 Drug: morphine IVP or IV 6 mg IVP once over 4 mins Route: IVP; Infused Over: 4 mins; [facility] Site: left antecubital; 04/21 00:12 Follow up: Response: No adverse reaction; No change in condition; Pain is unchanged, 12 physician notified 00:00 Drug: NS 0.9% IV 1000 ml IV at 1 bolus Per protocol; 1000 mL bolus Route: IV; Rate: 1 jm12 bolus; Site: left antecubital; 00:52 Follow up: IV Status: Completed infusion; IV Intake: 1000ml [facility] 01:30 Drug: fentaNYL (PF) IVP 100 mcg IVP once Route: IVP; Site: left antecubital; jm12 01:47 Follow up: Pain /10 Adult; Response: No adverse reaction; Pain is decreased [facility] 01:30 Drug: metoCLOPramide IVP 10 mg IVP once; over 1 to 2 minutes Route: IVP; Site: left 12 antecubital; 02:38 Follow up: Response: No adverse reaction [facility] 01:40 Drug: Rocephin - Rocephin (cefTRIAXone) IVPB 1 grams IVPB once over 30 mins; (mix in 50 jm12 mL NS) Route: IVPB; Infused Over: 30 mins; Site: left antecubital; 02:00 Drug: metroNIDAZOLE IVPB 500 mg 100 ml IVPB at 200 ml/hr once over 30 mins Volume: 100 jm12 ml; Route: IVPB; Rate: 200 ml/hr; Infused Over: 30 mins; Site: left antecubital; 02:35 Drug: fentaNYL (PF) IVP 50 mcg IVP once Route: IVP; Site: left antecubital; [facility] 02:53 Follow up: Response: No adverse reaction; Marked relief of symptoms; Pain is decreased [facility] 04:30 Drug: fentaNYL (PF) IVP 100 mcg IVP once Route: IVP; Site: left antecubital; [facility] 05:32 Follow up: Response: No adverse reaction; Pain is decreased [facility] Disposition Summary: 04/21/24 02:42 Hospitalization Ordered Notes: Hospitalization Status: Inpatient Admission sp4 Provider: Francisco Franco Location: Telemetry/[facility] (Inpatient) sp4 Condition: Stable sp4 Problem: new sp4 Symptoms: have improved sp4 Bed/Room Type: Standard sp4 Room Assignment: 405(04/21/24 03:32) jb4 Diagnosis - Acute appendicitis with perforation sp4 Forms: - Medication Reconciliation Form sp4 - SBAR form sp4 - Leadership Thank You Letter sp4 Signatures: Dispatcher [employer] José Miguel Stewart RN RN jb4 Hung Turk MD MD Semaj Guerrero MD MD sp4 Courtney Zavala RN RN cm10 Kelley Matthews RN RN jm12 Corrections: (The following items were deleted from the chart) 04/20 19:26 19:26 Allergies: Tramadol HCl; [facility] 04/21 03:32 02:42 sp4 jb4
--- NOTE | 2024-04-21 02:43 | ER ---
Nurse's Notes [facility] Name: Maria Del Carmen Stokes Age: 38 yrs Sex: Female : 1985 Arrival Date: 04/20/2024 Time: 19:08 Bed 3 Private MD: Diagnosis: Acute appendicitis with perforation Presentation: 04/20 19:23 Chief complaint: Patient states: 5 weeks ago pt had ovary removed by Dr. Jose Cummings at [address] and today patient went to work today and was doing some heavy lifting and started having some pressure to her lower abdomen. Pt reports having vaginal bleeding. Coronavirus screen: Client denies travel out of the [place] in the last 14 days. At this time, the client does not indicate any symptoms associated with coronavirus-19. Ebola Screen: Patient denies travel to an Ebola-affected area in the 21 days before illness onset. No symptoms or risks identified at this time. Initial Sepsis Screen: Does the patient meet any 2 criteria? No. Patient's initial sepsis screen is negative. Does the patient have a suspected source of infection? No. Patient's initial sepsis screen is negative. Risk Assessment: Do you want to hurt yourself or someone else? Patient reports no desire to harm self or others. Onset of symptoms was April 20, 2024. 19:23 Method Of Arrival: Ambulatory [facility] 19:23 Acuity: WILLIS 3 cm10 Triage Assessment: 19:26 General: Appears in no apparent distress. uncomfortable, Behavior is calm, cooperative. cm10 19:26 Neuro: No deficits noted. Level of Consciousness is awake, alert, obeys commands, cm10 Oriented to person, place, time, situation, Appropriate for age. Respiratory: No deficits noted. Airway is patent Respiratory effort is even, unlabored, Respiratory pattern is regular, symmetrical. Historical: - Allergies: 19:26 Codeine; cm10 19:26 Levaquin; cm10 19:26 PENICILLINS; cm10 - PMHx: 19:26 ADD/ADHD; cm10 - PSHx: 19:26 Cholecystectomy; hernia; Total abdominal hysterectomy; cm10 - Immunization history:: Adult Immunizations up to date. - Infectious Disease History:: Denies. - Social history:: Smoking status: unknown. - Family history:: not pertinent. Screenin/13 00:30 [facility] ED Fall Risk Assessment (Adult) History of falling in the last 3 months, 12 including since admission No falls in past 3 months (0 pts) Confusion or Disorientation No (0 pts) Intoxicated or Sedated No (0 pts) Impaired Gait No (0 pts) Mobility Assist Device Used No (0 pt) Altered Elimination No (0 pt) Score/Fall Risk Level 0 - 2 = Low Risk. Abuse screen: Denies threats or abuse. Denies injuries from another. Nutritional screening: No deficits noted. Tuberculosis screening: No symptoms or risk factors identified. Assessment: 04/20 20:11 General: Appears in no apparent distress. Behavior is calm, cooperative. Pain: [facility] Complains of pain in abdomen. Neuro: No deficits noted. Cardiovascular: No deficits noted. Respiratory: No deficits noted. GI: No deficits noted. No signs and/or symptoms were reported involving the gastrointestinal system. : Reports vaginal bleeding that is pt reports pain in lower abdomen where her surgery was. Vital Signs: 19:23 BP 144 / 85; Pulse 96; Resp 18; Temp 98.4(O); Pulse Ox 99% on R/A; Weight 50.8 kg; cm10 Height 5 ft. 1 in. ; Pain 8/10; 20:37 BP 122 / 60; Pulse 88; Resp 16; Pulse Ox 100% ; Pain 8/10; [facility] 23:17 BP 118 / 68; Pulse 72; Resp 14; Temp 98; Pulse Ox 100% ; 12 04/21 00:53 BP 124 / 68; Pulse 82; Resp 14; Pain 8/10; 12 01:47 Pain 2/10; [facility] 02:02 BP 129 / 84; Pulse 66; Resp 14; Pulse Ox 100% ; Pain 2/10; 12 04:30 BP 105 / 74; Pulse 66; Resp 14; Pulse Ox 100% ; Pain 8/10; [facility] 05:31 BP 102 / 68; Pulse 64; Resp 14; Pulse Ox 100% ; Pain 2/10; 12 04/20 19:23 Body Mass Index 21.16 (50.80 kg, 154.94 cm) cm10 04/20 19:23 Pain Scale: Adult cm10 20:37 Pain Scale: Adult 12 04/21 00:53 Pain Scale: Adult [facility] 01:47 Pain Scale: Adult [facility] 02:02 Pain Scale: Adult jm12 04:30 Pain Scale: Adult 12 05:31 Pain Scale: Adult 12 ED Course: 04/20 19:11 Patient arrived in ED. im 19:22 Hung Turk MD is Attending Physician. rt 19:26 Triage completed. cm10 19:27 Arm band placed on Patient placed in waiting room. cm10 19:52 Radiology exam delayed due to lab results not completed at this time. (BUN/Creatinine). nj 19:52 Radiology exam delayed due to IV insertion attempt and/or patient not having nj appropriate IV at this time. 20:03 Attending Physician role handed off by Hung Turk MD sp4 20:03 Semaj Guerrero MD is Attending Physician. sp4 20:37 Missed attempt(s): 22 gauge in right forearm. jm12 20:37 Missed attempt(s): 22 gauge in right antecubital area. Bleeding controlled, band aid jm12 applied, catheter tip intact. 22:06 Inserted saline lock: 24 gauge in left antecubital area, using aseptic technique. Blood 12 collected. Flushed with 10 mL NS. 23:16 IV Flushed left antecubital with 5 ml normal saline. [facility] 23:22 CT Abd/Pelvis - IV Contrast Only In Process Unspecified. EDMS 04/21 00:30 Patient has correct armband on for positive identification. Bed in low position. Call [facility] light in reach. Side rails up X2. 01:30 Assist provider with pelvic exam: Set up pelvic tray. Patient tolerated well. 12 02:42 Francisco Franco is Hospitalizing Provider. sp4 05:31 Patient admitted, IV remains in place. [facility] Administered Medications: 02:39 Discontinued: Rocephin - rocephin (ceftriaxone)1 grams IVPB once over 30 mins; (mix in jm12 50 mL NS) 02:38 Discontinued: [id number] mg 100 ml IVPB at 200 ml/hr once over 30 mins [facility] 04/20 22:06 Drug: Ondansetron IVP 4 mg IVP once; over 2 minutes Route: IVP; Site: left antecubital; [facility] 22:45 Follow up: Response: Marked relief of symptoms [facility] 22:06 Drug: morphine IVP or IV 4 mg IVP once over 4 mins Route: IVP; Infused Over: 4 mins; jm12 Site: left antecubital; 22:45 Follow up: Response: No change in condition [facility] 23:16 Drug: morphine IVP or IV 6 mg IVP once over 4 mins Route: IVP; Infused Over: 4 mins; [facility] Site: left antecubital; 04/21 00:12 Follow up: Response: No adverse reaction; No change in condition; Pain is unchanged, [facility] physician notified 00:00 Drug: NS 0.9% IV 1000 ml IV at 1 bolus Per protocol; 1000 mL bolus Route: IV; Rate: 1 jm12 bolus; Site: left antecubital; 00:52 Follow up: IV Status: Completed infusion; IV Intake: 1000ml [facility] 01:30 Drug: fentaNYL (PF) IVP 100 mcg IVP once Route: IVP; Site: left antecubital; jm12 01:47 Follow up: Pain 10 Adult; Response: No adverse reaction; Pain is decreased [facility] 01:30 Drug: metoCLOPramide IVP 10 mg IVP once; over 1 to 2 minutes Route: IVP; Site: left [facility] antecubital; 02:38 Follow up: Response: No adverse reaction [facility] 01:40 Drug: Rocephin - Rocephin (cefTRIAXone) IVPB 1 grams IVPB once over 30 mins; (mix in 50 jm12 mL NS) Route: IVPB; Infused Over: 30 mins; Site: left antecubital; 02:00 Drug: metroNIDAZOLE IVPB 500 mg 100 ml IVPB at 200 ml/hr once over 30 mins Volume: 100 jm12 ml; Route: IVPB; Rate: 200 ml/hr; Infused Over: 30 mins; Site: left antecubital; 02:35 Drug: fentaNYL (PF) IVP 50 mcg IVP once Route: IVP; Site: left antecubital; [facility] 02:53 Follow up: Response: No adverse reaction; Marked relief of symptoms; Pain is decreased [facility] 04:30 Drug: fentaNYL (PF) IVP 100 mcg IVP once Route: IVP; Site: left antecubital; 12 05:32 Follow up: Response: No adverse reaction; Pain is decreased [facility] Intake: 00:52 IV: 1000ml; Total: 1000ml. [facility] Outcome: 02:42 Decision to Hospitalize by Provider. sp4 05:32 Admitted to Med/surg accompanied by tech, via wheelchair, room 405, [facility] 05:32 Patient left the ED. [facility] Signatures: Dispatcher [employer] EDMS Mike Peterson Ryan, MD MD rt Semaj Guerrero MD MD sp4 Omaira Gee Clarissa RN RN cm10 Kelley Matthews RN RN 12 Corrections: (The following items were deleted from the chart) 04/20 19:26 19:26 Allergies: Tramadol HCl; cm10 cm10
--- NOTE | 2024-04-21 03:13 | P.HP ---
Certification for Inpatient Patient admitted to: Observation With expected LOS: <2 Midnights Practitioner: I am a practitioner with admitting privileges, knowledge of patient current condition, hospital course, and medical plan of care. Services: Services provided to patient in accordance with Admission requirements found in Title 42 Section 412.3 of the Code of Federal Regulations Patient History Date of Service: 04/21/24 Reason for admission: Appendicitis History of Present Illness: 38-year-old female with a past medical history of ADD, ADHD, presents to the emergency room with abdominal pain. She reports associated vaginal bleeding. She reports complicated hysterectomy in September, had a revision of hysterectomy surgery at [facility] about 5 weeks ago. She reports that spotting less than a period. She reports taking ibuprofen for pain with mild relief. She denies fever, chills, weight loss, palpitations, edema. Shortness of breath or chest pain. CT evaluation appendicitis with perforation. Plan to admit for acute appendicitis with perforation with surgery to consult. To be n.p.o. for surgery to eval Allergies raspberry Allergy (Mild, Verified 04/21/24 05:44) Hives levofloxacin [From Levaquin] Allergy (Verified 04/21/24 05:44) Anaphylaxis Penicillins Allergy (Verified 04/21/24 05:44) Itching Home Medications: Fluconazole [Diflucan] 200 mg PO DAILY #7 tab 12/12/23 Hydrocodone 10/APAP 325 [Lejunior 10/325] 1 tab PO Q12H PRN #20 tab 12/12/23 L. Acidophilus/L.bulgaricus [Floranex Tablet] 1 each PO DAILY #30 tab 12/12/23 Sumatriptan [Imitrex] 50 mg PO PRN PRN #8 tab 12/12/23 - Past Medical/Surgical History Diabetic: No -: prediabetis -: restless legs -: Pelvic infection -: cholecystectomy -: hysterectomy 09/23/2023, with revision -: hernia repair - Family History Father -: Heart disease, Lung disease, Stroke Mother -: Lung disease, Cancer, Other (see notes) Notes: lung CA - Social History Alcohol use: Yes CD- Drugs: No Caffeine use: Yes Review of Systems Per HPI Physical Examination - Physical Exam General: Alert, In no apparent distress, Oriented x3 HEENT: Atraumatic, Normocephalic Respiratory: Clear to auscultation bilaterally, Normal air movement Cardiovascular: Normal pulses, Regular rate/rhythm, Normal S1 S2 Capillary refill: <2 Seconds Gastrointestinal: Other (Lower abdominal tenderness) Musculoskeletal: No clubbing, No swelling Integumentary: No breakdown, No significant lesion Neurological: Normal speech, Normal strength at 5/5 x4 extr - Studies Laboratory Data (last 24 hrs) 04/20/24 04/20/24 22:04 22:04 WBC 17.90 H Hgb 13.1 Hct 40.1 Plt Count 353 Sodium 138 Potassium 3.9 BUN 17 Creatinine 0.85 Glucose 77 Total Bilirubin 0.7 AST 21 ALT 23 Alkaline Phosphatase 53 Lipase 27 Assessment and Plan - Plan Abdominal pain Vaginal bleed Acute appendicitis with perforation Leukocytosis Hysterectomy in September, Hysterectomy revision 5 weeks Surgery to consult, n.p.o., IV antibiotics, IV fluids, antiemetics, presents to the emergency room with abdominal pain. She reports associated vaginal bleeding. She reports complicated hysterectomy in September, had a revision of hysterectomy surgery at [facility] about 5 weeks ago. She reports that spotting less than a period. She reports taking ibuprofen for pain with mild relief. She denies fever, chills, weight loss, palpitations, edema. Shortness of breath or chest pain. CT evaluation appendicitis with perforation. Plan to admit for acute appendicitis with perforation with surgery to consult. To be n.p.o. for surgery to eval ADD, ADHD, Resume appropriate home meds when tolerating p.o. Full code Diet NPO DVT SCD Disposition Home independent prior l Discharge Plan: Home - Advance Directives Does patient have a Living Will: No Does patient have a Durable POA for Healthcare: No - Code Status/Comfort Care Code Status: Full Code Critical Care: No Time Spent Managing Pts Care (In Minutes): 55
[2024-04-21] MEDS: NA CHLORIDE 0.9% 1,000 ML IV SCH (05:53)
[2024-04-21] MEDS: ONDANSETRON 4 MG/2 ML VIAL IV PRN (06:09)
[2024-04-21 06:40] VITALS: BMI 21.1
[2024-04-21 07:40] LABS: Absolute Eosinophils 0.1 K/uL (0-0.5); Absolute Monocytes 0.7 K/uL (0.1-1.3); Absolute Neutrophil 8.9 K/uL (1.8-8.0); Basophils % 0.4 % (0-1.3); Eosinophils % 1.2 % (0-4.4); Hematocrit 35.3 % (36.0-45.0); Hemoglobin 11.8 g/dL (12.0-15.0); Lymphocytes % 17.2 % (15.3-44.8); MCHC 33.3 g/dL (32.0-36.0); MCV 90.1 fL (80-100); MPV 8.3 fL (7.6-11.3); Monocytes % 6.1 % (3.3-12.3); Neutrophils % 75.1 % (41.7-73.7); Platelets 276 thou/uL (152-406); RBC Red Blood Cell Count 3.92 M/uL (3.86-4.86); Red Cell Distribution Width 13.1 % (12.1-15.2)
[2024-04-21 07:55] LABS: Anion Gap 10.7 mEq/L (5.0-15.0); Magnesium 2.3 mg/dL (1.6-2.4); Potassium 3.7 mEq/L (3.5-5.1)
[2024-04-21] MEDS: PIPER TAZO 3.375 GM in NA CHLORIDE 0.9% 100 ML IV SCH (09:22)
[2024-04-21] MEDS: MORPHINE 4 MG/ML SYR IV PRN (09:56)
[2024-04-21] MEDS ORDERED: propofoL 200 MG/20 ML VIAL IV ONE (12:09)
[2024-04-21] MEDS ORDERED: LIDOCAINE 2% MPF 5 ML VIAL ONE (12:09)
[2024-04-21] MEDS ORDERED: ONDANSETRON 4 MG/2 ML VIAL ONE (12:09)
[2024-04-21] MEDS ORDERED: ROCURONIUM 50 MG/5 ML VIAL IV ONE (12:09)
[2024-04-21] MEDS ORDERED: MIDAZOLAM HCL 2 MG/2 ML INJ ONE (12:09)
--- NOTE | 2024-04-21 12:16 | RAD REPORT ---
EXAM DESCRIPTION: CT - Abdomen Pelvis W Contrast - 04/20/2024 11:20 pm CLINICAL HISTORY: Abdominal pain, reported gynecological surgery 5 weeks ago. TECHNIQUE: Axial computed tomography images of the abdomen and pelvis with intravenous contrast. S agittal and coronal reformatted images were created and reviewed. This CT exam was performed using one or more of the following dose reduction techniques: automated exposure control, adjustment of t he mA and/or kV according to patient size, and/or use of iterative reconstruction technique. COMPARISON: CT Abdomen pelvis with contrast 12/31/2023. FINDINGS: Lung bases: Unremarkable. No mass. No consolidation. ABDOMEN: Liver: Unremarkable. No mass. Gallbladder and bile ducts: Prior cholecystectomy. Mild intrahepatic and extrahepatic biliary dilat ation progressed from the prior. The common duct measures prior ventral hernia repair. Pancreas: Unremarkable. No mass. No ductal dilation. Spleen: Unremarkable. No splenomegaly. Adrenals: Unremarkable. No mass. Kidneys and ureters: Unremarkable. Normal renal cortical enhancement. No calculi. No hydronephros is. Stomach and bowel: Moderate stool in the proximal to mid large bowel. No obstruction. No identifiab le mucosal thickening. PELVIS: Appendix: The appendix is mildly enlarged and minimally hyperemic measuring 8 mm in maximum diamete r. Bladder: The urinary bladder is decompressed. Reproductive: Prior hysterectomy again noted. No adnexal cysts or masses are identified. ABDOMEN and PELVIS: Intraperitoneal space: There are few small foci of the right subdiaphragmatic free air. Mild infi ltrative changes within the lower pelvis and a small amount of free fluid. There are few gas foci in the right paracentral lower pelvis which are not definitively intraluminal. Bones/joints: No acute fracture. No dislocation. Soft tissues: Prior ventral hernia repair. Vasculature: Unremarkable. No abdominal aortic aneurysm. Lymph nodes: Unremarkable. No enlarged lymph nodes. IMPRESSION: 1. There are a few free gas foci within the right upper quadrant and within the lower pelvis. There are mild infiltrative changes and a small amount of free fluid. In light of reported hi story of surgery, findings may be related to peritonitis and the gas foci potentially residual post o perative. 2. The appendix is more pronounced on the current study and appears somewhat hyperemic. Although fi ndings may be reactive, the possibility of acute appendicitis with microperforation cannot be exclude d on the basis of this examination. 3. Other findings as above. THIS REPORT CONTAINS FINDINGS THAT MAY BE CRITICAL TO PATIENT CARE: The findings were verbally discus sed via telephone conference with Dr. Semaj Guerrero on 04/21/2024 1:03 AM CDT. The results were ack nowledged and understood. Electronically signed by: Antionette Mehta MD 04/21/2024 01:06 AM CDT RP Due to temporary technical issues with the PACS/Fluency reporting system, reports are being signed by the in house radiologist without review as a courtesy to ensure prompt reporting. The interpreting r adiologist is fully responsible for the content of the report.
[2024-04-21] MEDS: HYDROMORPHONE HCL 1 MG/ML INJ ONE (12:27)
[2024-04-21] MEDS: SUGAMMADEX SODIUM 200 MG/2 ML VIAL IV ONE (12:28)
[2024-04-21] MEDS ORDERED: EPHEDRINE SULF 50 MG/ML VIAL ONE (13:35)
[2024-04-21] MEDS ORDERED: dexAMETHasone 10 MG/ML VIAL ONE (13:48)
[2024-04-21] MEDS: BUPIVACAINE 0.25% PF 30 ML VIAL ONE (14:07)
--- NOTE | 2024-04-21 14:59 | P.OP ---
Preoperative diagnosis: Acute Appendicitis Postoperative diagnosis: Acute Appendicitis Primary procedure: Laparoscopic Appendectomy Secondary procedure: Laparoscopic Pelvic Washout Anesthesia: GETA + Local Estimated blood loss: <5cc Specimen: Appendix, Cultures from Pelvis Findings: Appendicitis Complications: None Drain(s): SIOMARA drain (7Fr Flat) Transferred to: Recovery Room Condition: Good
[2024-04-21 15:31] VITALS: O2SAT 100
[2024-04-21] MEDS: PROMETHAZINE INJ 25 MG/ML AMP ONE (15:35)
[2024-04-21] MEDS: FENTANYL CITR 100 MCG/2 ML ONE (15:37)
[2024-04-21] MEDS: MEPERIDINE HCL 25 MG/ML SYR ONE (15:40)
--- NOTE | 2024-04-21 16:16 | P.PN ---
Date of Service: 04/21/24 Patient seen and examined. She was complaining of abdominal pain this morning. Physical examination reveals some rebound tenderness. Patient seen and evaluated by surgery with Dr. Martinez. Laparoscopic appendectomy performed. Patient with a history of recent gynecological surgery and recent recurrent pelvic infection. Continue aggressive IV antibiotics.
[2024-04-21] MEDS: HYDROCODONE/APAP 5/325 MG TAB PO PRN (17:56)
[2024-04-21] MEDS: POTASSIUM CL SA 10 MEQ TAB PO ONE (17:57)
[2024-04-21 19:08] LABS: Specific Gravity 1.025 (1.005-1.030); Urine Bacteria <20 /HPF (<20); Urine Bilirubin NEGATIVE (Negative); Urine Blood 1+ (Negative); Urine Clarity Turbid (Clear); Urine Color Light-Yellow (Yellow); Urine Culture Reflex Order NOT NEEDED; Urine Glucose NEGATIVE (Negative); Urine Ketones 4+ (Negative); Urine Microscopic Reflex YN ORDER UMIC; Urine Mucus Slight /HPF (None Seen); Urine Nitrite NEGATIVE (Negative); Urine Protein NEGATIVE (Negative); Urine RBC <5 /HPF (None Seen); Urine Urobilinogen Normal (Normal); Urine WBC <5 /HPF (<5); Urine pH 5.5 (5.0-7.0)
--- NOTE | 2024-04-22 01:57 | OP ---
Date of Procedure: 04/21/2024 Surgeon: Efraín Martinez MD, Preoperative Diagnosis: Acute appendicitis. Postoperative Diagnosis: Acute appendicitis. Procedures Performed: 1.Laparoscopic appendectomy. 2.Laparoscopic pelvic washout. Anesthesia: General endotracheal plus local with 0.25% Marcaine. Estimated Blood Loss: 5 cc. Specimen: Appendix and cultures from pelvis. Findings: Consistent with appendicitis and murky fluid in the pelvis and in the perihepatic space. Complications: None. Drains: A 7 flat SIOMARA drain placed in the pelvis extending to the right lower quadrant. Disposition: The patient was transferred to recovery room in good condition. Procedure In Detail: After informed consent was obtained, the patient was brought to the operating r oom and prepped and draped in the usual sterile fashion. After adequate anesthesia was achieved, I a nesthetized an area in the left upper quadrant down to subcutaneous tissue. A 5 mm 0-degree optical trocar was introduced in the abdomen with no evidence of complication. Insufflation was obtained to 15 mmHg at this time. There was no injury to vital structures; however, significant scar tissue and adhesions from the omentum to the anterior abdominal wall were noted throughout most of the abdomen, particularly in the mid abdomen. Therefore, an additional trocar was placed in the right upper quadr ant. This was similarly anesthetized and sharply incised. A 5 mm trocar was placed under direct vis ualization with no evidence of complication. I proceeded to take down scar tissue using the LigaSure device with no evidence of complication, ultimately removing the omentum from the anterior surface o f the abdominal wall and lying in the normal anatomic position. There were significant scars and adh esions in the pelvis as well with significant scars in the right lower quadrant, particularly. Addit ional trocar was placed at this point, which was a 12 mm trocar placed in the infraumbilical position after appropriately anesthetizing the skin with no evidence of complication. I then placed the shailesh ent in the appendiceal position, head down and right side up position. Ratcheted grasper was used to grasp the patient's appendix, which was found to be inflamed; however, it was difficult to assess if this is a reactive appendicitis or primary appendicitis. There was no significant visible perforati on but murky fluid was in the area of the pelvis as well as the appendix which sat along the pelvic s idewall in the right abdominal compartment with a somewhat retroflexed position. After the appendix was mobilized from the pelvic sidewall, using the LigaSure device, I created a mesoappendiceal window using a [place] retractor. Endo MADI 45 purple load was fired across the base of the appendix at th e confluence of the cecum with no evidence of complication. The mesoappendix was taken down using th e LigaSure device with no evidence of complication. There were significant adhesions between the mes oappendix and the terminal ileum, which was kept in visual field and protected away using the LigaSur e device from any electrical diathermy or any other reactions. At this point, the appendix was place d in an EndoCatch bag and removed from the umbilical trocar site and sent off for pathologic examinat ion. I then proceeded to irrigate the pelvis at this point with 3 L of sterile saline and some scar tissue was found in the right lower quadrant at this time, which was removed, suctioned out, and cult ured at this point and sent off for cultures. Ultimately, after the area was cleansed and the remain ing fluid was suctioned out until completely dry and the irrigation of all 4 quadrants of the abdomen was completed at this point, with good clear fluid remaining only at this point, there were no hemos tatic measures required at this point. I placed a 7 mm flat SIOMARA drain in the pelvis and extended up t o the right upper quadrant trocar site with no evidence of complication. At this point, the drain wa s secured using a 3-0 nylon suture at the insertion site after the trocar was removed. I then procee ded to inspect the pelvis one last time. No additional hemostatic measures were required. Scar tiss ue remained in place which was interloop, primarily into pelvic sidewalls which appeared to be predom inantly small bowel. At this point, I removed the 12 mm trocar and closed the 12 mm trocar site laquita Medina suture passer with #1 Vicryl in an interrupted fashion with good approximation of tissues. The abdomen was then desufflated under direct visualization with no evidence of complicati on. Remaining trocars were removed. All skin edges were then copiously irrigated and closed with a 4-0 Monocryl in a running fashion. Dermabond was placed over top. The patient tolerated the procedu re well with no evidence of complication and was transferred to PACU in good condition. All counts w ere correct at the end of the case. TENISHA/ROYA Voice ID: [id number] Report ID: [id number]
[2024-04-22 08:11] LABS: Absolute Lymphocytes (CBC) 1.2 K/uL (0.7-4.9); Absolute Monocytes 0.4 K/uL (0.1-1.3); Absolute Neutrophil 10.7 K/uL (1.8-8.0); Basophils % 0.2 % (0-1.3); Hematocrit 41.2 % (36.0-45.0); Hemoglobin 13.4 g/dL (12.0-15.0); Lymphocytes % 9.9 % (15.3-44.8); MCH 29.6 pg (27.0-35.0); MCHC 32.5 g/dL (32.0-36.0); MCV 91.1 fL (80-100); MPV 9.3 fL (7.6-11.3); Monocytes % 3.4 % (3.3-12.3); Neutrophils % 86.5 % (41.7-73.7); Platelets 273 thou/uL (152-406); RBC Red Blood Cell Count 4.52 M/uL (3.86-4.86); Red Cell Distribution Width 13.1 % (12.1-15.2)
[2024-04-22 08:13] LABS: Anion Gap 12.3 mEq/L (5.0-15.0); Magnesium 2.3 mg/dL (1.6-2.4); Potassium 4.3 mEq/L (3.5-5.1)
[2024-04-22 08:35] LABS: White Blood Cell Scan OK (OK)
[2024-04-22 08:36] LABS: Blood Morphology Comment NOT SEEN (NOT SEEN); Platelet Estimate ADEQ
--- NOTE | 2024-04-22 09:57 | P.PN ---
Date of Service: 04/22/24 Subjective: feels abdominal pain a little worse today, some nausea reported with liquids; feels some relief with zofran 25 ml output from SIOMARA drain last 12-24 hours afebrile ROS: 10 point ROS as noted above, otherwise negative Physical Exam: GEN: Alert, oriented, uncomfortable appearing CV: Regular rate and rhythm, no edema Pulm: Nonlabored respirations on room air, clear bilaterally ABD: mild-moderate abdominal tenderness - worse in lower abdomen/suprapubic, nondistended Integumentary: surgical incisions c/d/i Neuro: Normal speech, normal affect SIOMARA drain x1 in place: serosanguineous drainage Problem List: acute appendicitis s/p lap appendectomy with washout (04/21) s/p hysterectomy (09/23/2023) s/p revision of hysterectomy surgery (~5 weeks ago) Vaginal bleed ADD/ADHD Presented with abdominal pain, nausea. Associated with spotting vaginal bleeding. Reports hx of complicated hysterectomy in Sep 2023 with vaginal cuff cellulitis. Had revision of hysterectomy surgery ~[address] abdomen (04/20): more pronounced appendix and appears somewhat hyperemic. Possibly acute appendicitis with microperforation. +Few free gas foci within RUQ and lower pelvis. these are mild infiltrative changes and a small amount of free fluid. In light of reported history of surgery, Findings may be related to peritonitis and the gas foci potentially residual post operative Dr. Martinez, general surgeon, is following s/p lap appy with pelvis washout (04/21) SIOMARA drain x1 placed wound care per surgery continue empiric zosyn (04/21-) follow surgical wound cultures PRN zofran for nausea full liquid diet for now pain control continue home meds as appropriate VTE: ambulatory Code: Full Dispo: Home, ~2-3 days Pending surgery recs / recovery Time Spent Managing Pts Care (In Minutes): 39
[2024-04-22] MEDS: HYDROCODONE/APAP 5/325 MG TAB PO ONE (11:44)
[2024-04-22] MEDS: D5.45NS W/KCL 20MEQ 20 MEQ/1,000 ML BAG IV SCH (11:46)
[2024-04-22] MEDS: HYDROCODONE/APAP 10/325 TAB PO PRN (14:51)
[2024-04-22] MEDS: ALPRAZOLAM 0.25 MG TABLET PO PRN (23:21)
[2024-04-23 07:15] LABS: Absolute Basophils 0.1 K/uL (0-0.5); Absolute Eosinophils 0.1 K/uL (0-0.5); Absolute Lymphocytes (CBC) 3.3 K/uL (0.7-4.9); Absolute Monocytes 0.6 K/uL (0.1-1.3); Absolute Neutrophil 6.5 K/uL (1.8-8.0); Basophils % 0.7 % (0-1.3); Eosinophils % 1.2 % (0-4.4); Hematocrit 31.2 % (36.0-45.0); Hemoglobin 10.8 g/dL (12.0-15.0); MCH 30.9 pg (27.0-35.0); MCHC 34.5 g/dL (32.0-36.0); MCV 89.5 fL (80-100); MPV 8.6 fL (7.6-11.3); Monocytes % 5.7 % (3.3-12.3); Neutrophils % 61.4 % (41.7-73.7); Nucleated Red Blood Cells % 0.2 % (0-0); Platelets 327 thou/uL (152-406); RBC Red Blood Cell Count 3.48 M/uL (3.86-4.86); Red Cell Distribution Width 13.2 % (12.1-15.2)
[2024-04-23 07:32] LABS: Anion Gap 8.5 mEq/L (5.0-15.0); Magnesium 1.9 mg/dL (1.6-2.4); Potassium 3.5 mEq/L (3.5-5.1)
--- NOTE | 2024-04-23 09:01 | P.PN ---
Date of Service: 04/23/24 Subjective: feeling better overall today abdominal pain slowly improving. feels some soreness nausea mostly resolved; only gets nauseous with pain meds no BM yet, +flatus afebrile ROS: 10 point ROS as noted above, otherwise negative Physical Exam: GEN: Alert, oriented, NAD CV: Regular rate and rhythm, no edema Pulm: Nonlabored respirations on room air, clear bilaterally ABD: mild-moderate abdominal tenderness - worse in lower abdomen/suprapubic, non distended Integumentary: surgical incisions c/d/i SIOMARA drain x1 in place: serosanguineous drainage Problem List: acute appendicitis s/p lap appendectomy with washout (04/21) s/p hysterectomy (09/23/2023) s/p revision of hysterectomy surgery (~5 weeks ago) Vaginal bleed ADD/ADHD Presented with abdominal pain, nausea. Associated with spotting vaginal bleedin g. Reports hx of complicated hysterectomy in Sep 2023 with vaginal cuff cellulitis. Had revision of hysterectomy surgery ~[address] abdomen (04/20): more pronounced appendix and appears somewhat hyperemic. Possibly acute appendicitis with microperforation. +Few free gas foci within RUQ and lower pelvis. these are mild infiltrative changes and a small amount of free fluid. In light of reported history of surgery, Findings may be related to peritonitis and the gas foci potentially residual post operative Dr. Martinez, general surgeon, is following s/p lap appy with pelvis washout (04/21) SIOMARA drain x1 placed wound care per surgery continue empiric zosyn (04/21-) follow surgical wound cultures PRN zofran for nausea full liquid diet for now , advance per surgery pain control continue home meds as appropriate VTE: ambulatory Code: Full Dispo: Home, ~1-2 days Pending surgery recs / recovery Time Spent Managing Pts Care (In Minutes): 39
[2024-04-23] MEDS ORDERED: MORPHINE 2 MG/ML SYR IV PRN (17:10)
[2024-04-23] MEDS: HYDROCODONE/APAP 5/325 MG TAB PO PRN (18:50)
[2024-04-24 06:00] LABS: Absolute Basophils 0.1 K/uL (0-0.5); Absolute Eosinophils 0.3 K/uL (0-0.5); Absolute Lymphocytes (CBC) 3.3 K/uL (0.7-4.9); Absolute Monocytes 0.5 K/uL (0.1-1.3); Basophils % 0.7 % (0-1.3); Eosinophils % 4.2 % (0-4.4); Hematocrit 29.1 % (36.0-45.0); Hemoglobin 10.1 g/dL (12.0-15.0); Lymphocytes % 39.8 % (15.3-44.8); MCH 30.9 pg (27.0-35.0); MCHC 34.8 g/dL (32.0-36.0); MCV 88.9 fL (80-100); MPV 7.9 fL (7.6-11.3); Monocytes % 6.5 % (3.3-12.3); Neutrophils % 48.8 % (41.7-73.7); Nucleated Red Blood Cells % 0.1 % (0-0); Platelets 302 thou/uL (152-406); RBC Red Blood Cell Count 3.28 M/uL (3.86-4.86); Red Cell Distribution Width 13.4 % (12.1-15.2)
[2024-04-24 06:28] LABS: Anion Gap 7.1 mEq/L (5.0-15.0); Magnesium 1.8 mg/dL (1.6-2.4); Potassium 4.1 mEq/L (3.5-5.1)
[2024-04-24 08:02] VITALS: BP 108/63; TEMP 97
--- NOTE | 2024-04-24 09:46 | P.DS ---
Admission Date: 04/22/24 Discharge Date: 04/24/24 Disposition: ROUTINE DISCHARGE Discharge Condition: GOOD Reason for Admission: Appendicitis Consultations: General surgery - Dr. Martinez Brief History of Present Illness: 38yo F, PMH: ADD, ADHD, Patient presents to the emergency room with abdominal pain. She reports associated vaginal bleeding. She reports complicated hysterectomy in September, had a revision of hysterectomy surgery at [facility] about 5 weeks ago. She reports that spotting less than a period. She reports taking ibuprofen for pain with mild relief. She denies fever, chills, weight loss, palpitations, edema. Shortness of breath or chest pain. CT evaluation appendicitis with perforation. Plan to admit for acute appendicitis with perforation with surgery to consult. To be n.p.o. for surgery to [facility] Hospital Course: Problem List: acute perforated appendicitis s/p lap appendectomy with washout (04/21) s/p hysterectomy (09/23/2023) s/p revision of hysterectomy surgery (~5 weeks ago) Vaginal bleed ADD/ADHD Physician discharge instructions: Patient presented with lower abdominal pain, nausea. She was found to have acute perforated appendicitis, seen on CT imaging. Patient was evaluated by Dr. Martinez, general surgeon, and underwent laparoscopic appendectomy with pelvic washout of 04/21. She did well post- operatively. Her diet was slowly advanced and was able to tolerate without issues. Patient received ~3 days of empiric zosyn while hospitalized and is to complete 10 more days of Augmentin on discharge. Wound cultures were without growth. Advised to follow up with Dr. Martinez in 1 week in office for further management and removal of SIOMARA drain. Patient was feeling better, abdominal pain improving, nausea/vomiting resolved, and was deemed stable for discharge. Medications: Augmentin twice daily for 10 more days Tylenol #3 as needed for pain. Follow up: PCP 3-[address] Martinez 1 week in office Please call to schedule / confirm appointments record SIOMARA drain output Do not submerge wound underwater. No baths. Okay to shower with running water. No heavy lifting > 10 lbs for 4-6 weeks Physical Exam: GEN: Alert, oriented, NAD HEENT: Normal conjunctiva, sclera anicteric CV: Regular rate and rhythm, no edema Pulm: Nonlabored respirations on room air, clear bilaterally ABD: minimal abdominal tendernes, nondistended, soft Integumentary: surgical incisions c/d/i Neuro: Normal speech, normal affect Vital Signs/Physical Exam: Temp Pulse Resp BP Pulse Ox 97.0 F 71 14 108/63 100 04/24/24 08:00 04/24/24 08:00 04/24/24 08:00 04/24/24 08:00 04/24/24 08:00 Laboratory Data at Discharge: WBC 8.20 thou/uL (4.3-10.9) 04/24/24 05:42 Hgb 10.1 g/dL (12.0-15.0) L 04/24/24 05:42 Hct 29.1 % (36.0-45.0) L 04/24/24 05:42 Plt Count 302 thou/uL (152-406) 04/24/24 05:42 Sodium 140 mEq/L (136-145) 04/24/24 05:42 Potassium 4.1 mEq/L (3.5-5.1) D 04/24/24 05:42 BUN 7 mg/dL (7-18) 04/24/24 05:42 Creatinine 0.76 mg/dL (0.55-1.02) 04/24/24 05:42 Glucose 90 mg/dL (74-106) 04/24/24 05:42 Magnesium 1.8 mg/dL (1.6-2.4) 04/24/24 05:42 Total Bilirubin 0.7 mg/dL (0.2-1.0) 04/20/24 22:04 AST 21 U/L (15-37) 04/20/24 22:04 ALT 23 U/L (13-56) 04/20/24 22:04 Alkaline Phosphatase 53 U/L (45-117) 04/20/24 22:04 Lipase 27 U/L (13-75) 04/20/24 22:04 Home Medications: Multivitamin [Daily Multivitamin] 1 cap PO DAILY 04/21/24 estradioL [Estradiol (Twice Weekly)] 0.1 mg TOP SEECOM 04/21/24 Amox/Clavulanate [Augmentin 875-125 Tab] 1 tab PO BID 10 Days #20 tab 04/24/24 Codeine/APAP [Tylenol W/Codeine #3 tab] 1 tab PO Q3HP PRN 5 Days #30 tab 04/24/24 New Medications: Codeine/APAP [Tylenol W/Codeine #3 tab] 1 tab PO Q3HP PRN 5 Days #30 tab PRN Reason: Pain Amox/Clavulanate [Augmentin 875-125 Tab] 1 tab PO BID 10 Days #20 tab Physician Discharge Instructions: Physician discharge instructions: Patient presented with lower abdominal pain, nausea. She was found to have acute perforated appendicitis, seen on CT imaging. Patient was evaluated by Dr. Martinez, general surgeon, and underwent laparoscopic appendectomy with pelvic washout of 04/21. She did well post- operatively. Her diet was slowly advanced and was able to tolerate without issues. Patient received ~3 days of empiric zosyn while hospitalized and is to complete 10 more days of Augmentin on discharge. Wound cultures were without growth. Advised to follow up with Dr. Martinez in 1 week in office for further management and removal of SIOMARA drain. Patient was feeling better, abdominal pain improving, nausea/vomiting resolved, and was deemed stable for discharge. Medications: Augmentin twice daily for 10 more days Tylenol #3 as needed for pain. Follow up: PCP 3-[address] Martinez 1 week in office Please call to schedule / confirm appointments record SIOMARA drain output Do not submerge wound underwater. No baths. Okay to shower with running water. No heavy lifting > 10 lbs for 4-6 weeks Diet: Regular Activity: No lifting more than 10 lbs Followup: Tomy Le MD [Primary Care Provider] - Efraín Martinez MD [ACTIVE - CAN ADMIT] -
--- NOTE | 2024-04-27 13:24 | CON ---
Date of Consultation: 04/21/2024 Brief History Of Present Illness: The patient is a 38-year-old female with a past medical history of ADD, ADHD, who presents to the emergency room with abdominal pain and that she had associated vagina l bleeding before in the past. The patient states she had a significant surgery/hysterectomy in [place] earlier this year, then had significant complications requiring a revision surgery approximately 4 to 5 weeks ago at [facility]. She initially believed she had postoperative complicatio ns including infection and required additional revision of her vaginal cuff as well as completion hys terectomy to make a total abdominal hysterectomy approximately 4 to 5 weeks ago at [facility]. Since then, she initially felt somewhat better, but over the past 4 to 5 days, she had signifi cant worsening of her pain in the lower pelvic region, particularly on the right lower side. It star kathrine in that general vicinity and continued to get worse. She took some ibuprofen with minimal improv ement. She had no fever, chills, weight loss, palpitations, and as such she come to the emergency ro om with the above stated complaints of predominantly abdominal pain, which was getting progressively worse. Past Medical History: ADHD, ADD, prediabetes, restless leg, pelvic inflammation. Past Surgical History: Includes cholecystectomy, hysterectomy with revision, hernia repair. Allergies: TO RASPBERRY, LEVAQUIN, PENICILLIN. Home Medications: Include Diflucan, [place], Floranex, and Imitrex/sumatriptan. Family History: Significant for heart disease, lung disease, and stroke in father. Mother had lung disease, cancer as well. Social History: She drinks alcohol recreationally. She denies smoking and recreational drug use Review of Systems: Ten-point review of systems other than HPI, she currently denies. Physical Examination: General: She is awake, alert, and oriented. Psychiatric: She is appropriate conversive. HEENT: Normocephalic. Sclerae icteric. Mucous membranes are moist. Oropharynx is clear. Neck: Supple without JVD. Chest: Normal expansion, excursion. Cardiovascular: Regular rhythm. Pulmonary: Clear to auscultation bilaterally. Abdomen: Soft with positive right lower quadrant tenderness to palpation. Positive focal peritoniti s. Positive guarding and positive rebound. Extremities: No clubbing, cyanosis, or edema. Skin: Warm and dry. Vital Signs: She had a blood pressure 119/68, pulse is 92, respiratory rate 18, temperature 97.3, ox ygen saturation was 100%. Laboratory Data: Revealed a white blood cell count of 11.9, hemoglobin 11.8, hematocrit 35.3, platel et count was 276. Her sodium was 139, potassium 3.7, chloride 110, carbon dioxide 22, BUN 16, creati nine 0.67, glucose is 81, magnesium 2.3. She had a lipase on the 12th, which showed 27. Total bilir ubin 0.7, AST 21, ALT 23, alkaline phosphatase is 53. UA showed turbid clarity, 4+ ketones, 1+ blood , and less than 20 bacteria. She had imaging performed, which included a CT of the abdomen and pelvi s, which was officially read as intraperitoneal space showed a few small foci in the right subdiaphra gmatic free air, mild infiltrative changes within the lower pelvis and small amount of free fluid. A few gas foci in the right paracentral lower pelvis, which were not definitively intraluminal. Impression: Officially being there are few free gas foci within the right upper quadrant and within the lower pelvis. There are mild infiltrative changes. Small amount of free fluid in the light of r eported history of surgery. Findings may relate to peritonitis and gas foci potentially residual pos toperative. The appendix is more pronounced in the current study, which appears to be somewhat hyper emic. All the findings may be reactive. The possibility of acute appendicitis with microperforation cannot be excluded on the basis of examination. Assessment And Plan: This is a 38-year-old woman who comes in with possible early/perforated appendi citis versus intra-abdominal abscess. 1.IV fluid hydration. 2.Antibiotic coverage. 3.I have explained the risks, benefits, and alternatives of diagnostic laparoscopy and laparoscopic appendectomy, possible open, and indicated procedures, including but not limited to bleeding, infecti on, damage to internal organs, need for further operation and procedures, ongoing wound care, heart a ttack, blood clots, strokes and other unforeseen complications in the perioperative. The patient dis played understanding of above stated plan. All questions were answered and agreed to proceed as swapna cated. TENISHA/ROYA Voice ID: [id number] Report ID: [id number]
== END 2024-04-24 11:10 | disposition home or self-care (01) | DRG 399 ==
LOC: ER 19:08 → 4TH 04-21 03:14 → OBSVTOIN 04-22 09:59
PROVIDERS: ADMIT Internal Medicine; ATTEND Hospitalist
PROC: 0DTJ4ZZ Resection of Appendix, Percutaneous Endoscopic Approach (ICD-10-PCS; principal; 2024-04-21 17:45)
PROC: 02HV33Z Insertion of Infusion Device into Superior Vena Cava, Percutaneous Approach (ICD-10-PCS; 2024-04-23)
DX: K35.32 Acute appendicitis with perforation, localized peritonitis, and gangrene, without abscess (principal); F90.9 Attention-deficit hyperactivity disorder, unspecified type; D72.829 Elevated white blood cell count, unspecified; Z88.0 Allergy status to penicillin; Z88.5 Allergy status to narcotic agent; Z88.1 Allergy status to other antibiotic agents; Z90.49 Acquired absence of other specified parts of digestive tract; Z79.899 Other long term (current) drug therapy; Z90.710 Acquired absence of both cervix and uterus
CPT/HCPCS: 36415; 74177; 80048; 80053; 81001; 83690; 83735; 85025; 87070; 87075; 87205; 88304; 94010; 96361; 96374; 96375; 99285; G0378; J0696; J1100; J1170; J2001; J2175; J2250; J2270; J2405; J2543; J2550; J2704; J2765; J2800; J3010; J7030; Q9967

== ENCOUNTER 2024-04-25 20:28 | Emergency (ER) | payer BC ==
[2024-04-25 22:26] LABS: Absolute Eosinophils 0.4 K/uL (0-0.5); Absolute Lymphocytes (CBC) 3.8 K/uL (0.7-4.9); Absolute Monocytes 0.6 K/uL (0.1-1.3); Absolute Neutrophil 3.5 K/uL (1.8-8.0); Basophils % 0.6 % (0-1.3); Eosinophils % 4.4 % (0-4.4); Hematocrit 36.8 % (36.0-45.0); Hemoglobin 12.2 g/dL (12.0-15.0); Lymphocytes % 45.7 % (15.3-44.8); MCHC 33.2 g/dL (32.0-36.0); MCV 90.4 fL (80-100); Monocytes % 6.9 % (3.3-12.3); Neutrophils % 42.4 % (41.7-73.7); Platelets 367 thou/uL (152-406); RBC Red Blood Cell Count 4.07 M/uL (3.86-4.86); Red Cell Distribution Width 12.9 % (12.1-15.2)
[2024-04-25 22:44] LABS: Albumin 3.5 g/dL (3.4-5.0); Anion Gap 6.6 mEq/L (5.0-15.0); Bilirubin Total 0.3 mg/dL (0.2-1.0); Globulin 3.5 g/dL (2.3-3.5); Potassium 3.6 mEq/L (3.5-5.1)
[2024-04-25] MEDS ORDERED: MORPHINE 4 MG/ML SYR ONE (22:52)
[2024-04-25] MEDS ORDERED: MORPHINE 2 MG/ML SYR ONE (22:53)
[2024-04-25 23:15] LABS: Specific Gravity 1.015 (1.005-1.030); Urine Bacteria None Seen /HPF (<20); Urine Bilirubin NEGATIVE (Negative); Urine Blood Negative (Negative); Urine Clarity Turbid (Clear); Urine Color Light-Yellow (Yellow); Urine Culture Reflex Order NOT NEEDED; Urine Glucose NEGATIVE (Negative); Urine Ketones NEGATIVE (Negative); Urine Microscopic Reflex YN ORDER UMIC; Urine Mucus Slight /HPF (None Seen); Urine Nitrite NEGATIVE (Negative); Urine Protein NEGATIVE (Negative); Urine RBC <5 /HPF (None Seen); Urine Urobilinogen Normal (Normal); Urine WBC <5 /HPF (<5)
--- NOTE | 2024-04-26 00:56 | EDPHYS ---
Physician Documentation [facility] Name: Maria Del Carmen Stokes Age: 38 yrs Sex: Female : 1985 Arrival Date: 04/25/2024 Time: 20:28 Bed 20 Private MD: ED Physician Mitch Dominguez HPI: 04/25 21:10 This 38 yrs old Female presents to ER via Wheelchair with complaints of Post Surgical cp Pain, POST SURGICAL DRAIN PROBLEM. 21:10 The patient presents with abdominal pain. cp 21:10 Onset: The symptoms/episode began/occurred today. Associated signs and symptoms: cp Pertinent negatives: chest pain, constipation, diarrhea, fever, vomiting. 21:10 Patient is a 38-year-old female who presents to the emergency department with reports cp of abdominal pain. Patient is 4 days postop appendectomy that was performed by Dr. Martinez. Patient presents with abdominal pain and concerned that the intra-abdominal drain that was placed has not drained enough fluid today. She denies any fever or shortness of breath. Reports she has had bowel movements and denies any urinary symptoms. Historical: - Allergies: 21:21 Codeine; vc1 21:21 Levaquin; vc1 21:21 PENICILLINS; vc1 - PMHx: 21:21 ADD/ADHD; vc1 - PSHx: 21:21 Cholecystectomy; hernia; Total abdominal hysterectomy; Appendectomy; vc1 - Immunization history:: Adult Immunizations up to date. - Infectious Disease History:: Denies. - Social history:: Smoking status: Patient denies any tobacco usage or history of. ROS: 21:15 Constitutional: Negative for body aches, chills, fever, poor PO intake, cp 21:15 Eyes: Negative for injury, pain, redness, and discharge, cp 21:15 Cardiovascular: Negative for chest pain, 21:15 Respiratory: Negative for cough, shortness of breath, wheezing, 21:15 Abdomen/GI: Positive for abdominal pain, Negative for vomiting, diarrhea, constipation, 21:15 : Negative for urinary symptoms, 21:15 Neuro: Negative for altered mental status, headache, weakness, 21:15 All other systems are negative, Exam: 21:20 Constitutional: The patient appears in no acute distress, alert, awake, non-toxic, well cp developed, well nourished, 21:20 Head/Face: Normocephalic, atraumatic. cp 21:20 Eyes: Periorbital structures: appear normal, Conjunctiva: normal, no exudate, Sclera: no appreciated abnormality, Lids and lashes: appear normal, bilaterally, 21:20 ENT: External ear(s): are unremarkable, Nose: is normal, Mouth: Lips: moist, Oral mucosa: pink and intact, moist, Posterior pharynx: Airway: no evidence of obstruction, patent, 21:20 Chest/axilla: Inspection: normal, 21:20 Cardiovascular: Rate: normal, Rhythm: regular, 21:20 Respiratory: the patient does not display signs of respiratory distress, Respirations: normal, no use of accessory muscles, no retractions, labored breathing, is not present, Breath sounds: are clear throughout, no decreased breath sounds, no stridor, no wheezing, 21:20 Abdomen/GI: Inspection: distension, that is mild, in the abdomen diffusely, right mid abdomen intraabdominal drain placed with approximate 3 ccs bloody fluid noted, Bowel sounds: active, all quadrants, Palpation: soft, in all quadrants, moderate abdominal tenderness, in all quadrants, 21:20 Skin: cellulitis, is not appreciated, 21:20 Neuro: Orientation: to person, place \T\ time. Mentation: is normal, Vital Signs: 20:50 BP 143 / 99; Pulse 75; Resp 14; Temp 98.3; Pulse Ox 100% ; Weight 52.16 kg; Height 5 vc1 ft. 0 in. ; Pain 7/10; 22:59 BP 134 / 80; Pulse 73; Pulse Ox 100% ; Pain 7/10; tm6 04/26 00:27 BP 125 / 89; Pulse 77; Pulse Ox 99% on R/A; Pain 7/10; tm6 01:42 Pain 5/10; tm6 01:43 BP 133 / 80; Pulse 77; Resp 19; Temp 98.3; Pulse Ox 100% on R/A; Pain 5/10; tm6 04/25 20:50 Body Mass Index 22.46 (52.16 kg, 152.4 cm) vc1 04/25 20:50 Pain Scale: Adult vc1 22:59 Pain Scale: Adult tm6 04/26 00:27 Pain Scale: Adult tm6 01:42 Pain Scale: Adult tm6 01:43 Pain Scale: Adult tm6 MDM: 04/25 20:52 Patient medically screened. 22:00 Differential diagnosis: bowel obstruction, non-specific abd pain, Ureterolithiasis, cp urinary tract infection, post operative hematoma, abscess. 04/26 00:55 Data reviewed: vital signs, nurses notes, lab test result(s), radiologic studies, plain cp films. 00:55 I considered the following discharge prescriptions or medication management in the emergency department Medications were administered in the Emergency Department. See MAR. Counseling: I had a detailed discussion with the patient and/or guardian regarding the historical points, exam findings, and any diagnostic results supporting the discharge/admit diagnosis, lab results, radiology results, the need for outpatient follow up, a general surgeon, to return to the emergency department if symptoms worsen or persist or if there are any questions or concerns that arise at home. Response to treatment: the patient's symptoms have markedly improved after treatment, and as a result, I will discharge patient. 00:56 Special discussion: Based on the patient's Hx, exam, and Dx evaluation, there is no indication for emergent surgery or inpatient Tx. It is understood by the patient/guardian that if the Sx's persist or worsen they need to return immediately for re-evaluation. 04/25 21:07 Order name: CBC with Diff; Complete Time: 23:07 04/25 23:07 Interpretation: Reviewed. 04/25 21:07 Order name: CMP; Complete Time: 23:07 04/25 23:07 Interpretation: Normal except: CL 110; ALT 76; A/G 1.0. 04/25 21:07 Order name: Lipase; Complete Time: 23:07 04/25 21:07 Order name: Urinalysis w/ reflexes; Complete Time: 23:17 04/25 23:17 Interpretation: Reviewed. 04/25 23:14 Order name: Abdomen EDMS 04/25 21:07 Order name: Labs collected and sent; Complete Time: 22:57 Administered Medications: 04/25 22:57 Drug: morphine IM 6 mg IM once Route: IM; Site: right gluteus; tm6 04/26 00:28 Follow up: Response: No adverse reaction; Pain is unchanged, physician notified tm6 01:08 Drug: fentaNYL (PF) IM 50 mcg IM once Route: IM; Site: right deltoid; tm6 01:42 Follow up: Pain 5/10 Adult; Response: No adverse reaction; Marked relief of symptoms; tm6 Pain is decreased 01:43 Not Given (Physician Discretion): ns 0.9% 1000 ml IV at 1 bolus Per protocol; 1000 mL tm6 bolus 01:43 Not Given (Physician Discretion): ondansetron 4 mg IVP once; over 2 minutes tm6 Disposition Summary: 04/26/24 00:56 Discharge Ordered Notes: Location: Home cp Problem: new cp Symptoms: have improved cp Condition: Stable cp Diagnosis - Abdominal pain, unspecified cp Followup: cp - With: Efraín Martinez MD - When: As needed - Reason: Worsening of condition Discharge Instructions: - Discharge Summary Sheet cp - Abdominal Pain, Adult cp - Nausea, Adult cp Forms: - Medication Reconciliation Form cp - Antibiotic Education cp - Prescription Opioid Use cp - Patient Portal Instructions cp - Leadership Thank You Letter cp Prescriptions: - ondansetron 8 mg Oral Tablet,disintegrating - take 1 tablet ORAL route every 12 hours; 20 tablet; Refills: 0, Product cp Selection Permitted Signatures: Dispatcher [employer] EDMS Blu Davis PA PA cp Gwen Alonzo RN RN vc1 Cesar Cortez RN RN tm6 Corrections: (The following items were deleted from the chart) 04/25 23:14 21:08 Abdomen Pelvis W Con+CT.RAD.BRZ ordered. EDMS EDMS 04/26 01:43 04/25 21:07 IV Saline Lock ordered. cp tm6
--- NOTE | 2024-04-26 00:56 | ER ---
Nurse's Notes [facility] Name: Maria Del Carmen Stokes Age: 38 yrs Sex: Female : 1985 Arrival Date: 04/25/2024 Time: 20:28 Bed 20 Private MD: Diagnosis: Abdominal pain, unspecified Presentation: 04/25 20:50 Chief complaint: Patient states: Emergency appy on Saturday released yesterday with SIOMARA vc1 drain, no drainage noted today and stomach is swelling. Coronavirus screen: Client denies travel out of the [place] in the last 14 days. At this time, the client does not indicate any symptoms associated with coronavirus-19. Ebola Screen: Patient negative for fever greater than or equal to 101.5 degrees Fahrenheit, and additional compatible Ebola Virus Disease symptoms Patient denies exposure to infectious person. Patient denies travel to an Ebola-affected area in the 21 days before illness onset. No symptoms or risks identified at this time. 20:50 Method Of Arrival: Wheelchair vc1 20:50 Initial Sepsis Screen: Does the patient meet any 2 criteria? No. Patient's initial vc1 sepsis screen is negative. Does the patient have a suspected source of infection? No. Patient's initial sepsis screen is negative. Risk Assessment: Do you want to hurt yourself or someone else? Patient reports no desire to harm self or others. Onset of symptoms was April 25, 2024. Care prior to arrival: None. Activity prior to arrival: None. Mechanism of Injury: No Mechanism of Injury. Transition of care: patient was not received from another setting of care. 20:50 Acuity: WILLIS 3 vc1 Triage Assessment: 21:22 General: Appears in no apparent distress. uncomfortable, slender, Behavior is calm, vc1 cooperative, appropriate for age. Pain: Complains of pain in suprapubic area and right lower quadrant Pain does not radiate. Pain currently is 7 out of 10 on a pain scale. Quality of pain is described as sharp. EENT: No deficits noted. No signs and/or symptoms were reported regarding the EENT system. Neuro: Level of Consciousness is awake, alert, obeys commands, Oriented to person, place, time, situation, Appropriate for age. Cardiovascular: Capillary refill < 3 seconds Patient's skin is warm and dry. Respiratory: Airway is patent Respiratory effort is even, unlabored, Respiratory pattern is regular, symmetrical. GI: Site clean. SIOMARA drain to right side of abdomen, site clean, no redness or swelling. Reports lower abdominal pain, diarrhea, Pain is 7 out of 10 on a pain scale. : No deficits noted. No signs and/or symptoms were reported regarding the genitourinary system. Derm: Wound noted right lower quadrant Other: surgical drain. Musculoskeletal: No deficits noted. No signs and/or symptoms reported regarding the musculoskeletal system. Historical: - Allergies: 21:21 Codeine; vc1 21:21 Levaquin; vc1 21:21 PENICILLINS; vc1 - PMHx: 21:21 ADD/ADHD; vc1 - PSHx: 21:21 Cholecystectomy; hernia; Total abdominal hysterectomy; Appendectomy; vc1 - Immunization history:: Adult Immunizations up to date. - Infectious Disease History:: Denies. - Social history:: Smoking status: Patient denies any tobacco usage or history of. Screenin:22 [facility] ED Fall Risk Assessment (Adult) History of falling in the last 3 months, vc1 including since admission No falls in past 3 months (0 pts) Confusion or Disorientation No (0 pts) Intoxicated or Sedated No (0 pts) Impaired Gait No (0 pts) Mobility Assist Device Used No (0 pt) Altered Elimination No (0 pt) Score/Fall Risk Level 0 - 2 = Low Risk Oriented to surroundings, Maintained a safe environment, Educated pt \T\ family on fall prevention, incl call for assistance when getting out of bed. Abuse screen: Denies threats or abuse. Nutritional screening: No deficits noted. Tuberculosis screening: No symptoms or risk factors identified. Assessment: 21:25 General: Appears uncomfortable, Behavior is calm, cooperative. Pain: Complains of pain tm6 in abdomen and right lower quadrant and suprapubic area Pain does not radiate. Pain currently is 7 out of 10 on a pain scale. Neuro: Level of Consciousness is awake, alert, obeys commands, Oriented to person, place, time, situation. Cardiovascular: Patient's skin is warm and dry. Respiratory: Airway is patent Respiratory effort is even, unlabored, Respiratory pattern is regular, symmetrical. GI: Abdomen is flat, non-distended, drain in RLQ Reports lower abdominal pain, upper abdominal pain. : No signs and/or symptoms were reported regarding the genitourinary system. EENT: No signs and/or symptoms were reported regarding the EENT system. Derm: No signs and/or symptoms reported regarding the dermatologic system. Musculoskeletal: No signs and/or symptoms reported regarding the musculoskeletal system. 23:00 Reassessment: Patient appears in no apparent distress at this time. Patient and/or tm6 family updated on plan of care and expected duration. Pain level reassessed. Patient is alert, oriented x 3, equal unlabored respirations, skin warm/dry/pink. 04/26 00:27 Reassessment: Patient appears in no apparent distress at this time. Patient and/or tm6 family updated on plan of care and expected duration. Pain level reassessed. Patient is alert, oriented x 3, equal unlabored respirations, skin warm/dry/pink. 01:44 Reassessment: Patient and/or family updated on plan of care and expected duration. Pain tm6 level reassessed. Patient is alert, oriented x 3, equal unlabored respirations, skin warm/dry/pink. Vital Signs: 04/25 20:50 BP 143 / 99; Pulse 75; Resp 14; Temp 98.3; Pulse Ox 100% ; Weight 52.16 kg; Height 5 vc1 ft. 0 in. ; Pain 7/10; 22:59 BP 134 / 80; Pulse 73; Pulse Ox 100% ; Pain 7/10; tm6 04/26 00:27 BP 125 / 89; Pulse 77; Pulse Ox 99% on R/A; Pain 7/10; tm6 01:42 Pain 5/10; tm6 01:43 BP 133 / 80; Pulse 77; Resp 19; Temp 98.3; Pulse Ox 100% on R/A; Pain 5/10; tm6 04/25 20:50 Body Mass Index 22.46 (52.16 kg, 152.4 cm) vc1 04/25 20:50 Pain Scale: Adult vc1 22:59 Pain Scale: Adult tm6 04/26 00:27 Pain Scale: Adult tm6 01:42 Pain Scale: Adult tm6 01:43 Pain Scale: Adult tm6 ED Course: 04/25 20:28 Patient arrived in ED. jj6 20:30 Blu Davis PA is PHCP. cp 20:30 Mitch Dominguez MD is Attending Physician. cp 21:07 Cesar Cortez, BLAYNE is Primary Nurse. tm6 21:20 Triage completed. vc1 21:25 Patient has correct armband on for positive identification. Bed in low position. Call tm6 light in reach. Side rails up X 1. Provided Education on: use of call nicole. Client placed on continuous cardiac and pulse oximetry monitoring. NIBP monitoring applied. Pulse ox on. NIBP on. Door closed. Noise minimized. Warm blanket given. Pillow given. 21:25 Arm band placed on right wrist. tm6 22:50 Urinalysis w/ reflexes Sent. tm6 23:14 Abdomen In Process Unspecified. EDMS 04/26 00:55 Efraín Martinez MD is Referral Physician. cp 01:44 No provider procedures requiring assistance completed. Patient did not have IV access tm6 during this emergency room visit. Administered Medications: 04/25 22:57 Drug: morphine IM 6 mg IM once Route: IM; Site: right gluteus; tm6 04/26 00:28 Follow up: Response: No adverse reaction; Pain is unchanged, physician notified tm6 01:08 Drug: fentaNYL (PF) IM 50 mcg IM once Route: IM; Site: right deltoid; tm6 01:42 Follow up: Pain 5/10 Adult; Response: No adverse reaction; Marked relief of symptoms; tm6 Pain is decreased 01:43 Not Given (Physician Discretion): ns 0.9% 1000 ml IV at 1 bolus Per protocol; 1000 mL tm6 bolus 01:43 Not Given (Physician Discretion): ondansetron 4 mg IVP once; over 2 minutes tm6 Medication: 04/25 21:25 VIS not applicable for this client. tm6 Outcome: 04/26 00:56 Discharge ordered by . cp 01:44 Discharged to home ambulatory, with family, tm6 01:44 Condition: stable 01:44 Discharge instructions given to patient, Instructed on discharge instructions, follow up and referral plans. medication usage, Demonstrated understanding of instructions, follow-up care, medications, Prescriptions given X 1, 01:47 Patient left the ED. tm6 Signatures: Dispatcher [employer] EDNC Blu Davis PA PA cp Jeffries, Jennifer jj6 Gwen Alonzo RN RN vc1 Dana, Tawney, RN RN tm6
[2024-04-26] MEDS ORDERED: FENTANYL CITR 100 MCG/2 ML ONE (00:58)
[2024-04-26 01:52] VITALS: TEMP 98.3
[2024-04-26 01:56] VITALS: BP 133/80; O2SAT 100
--- NOTE | 2024-04-28 11:37 | RAD REPORT ---
EXAM DESCRIPTION: CT - Abdomen Pelvis Wo Contrast - 04/25/2024 11:13 pm CLINICAL HISTORY: 38 years Female Abdomen pain. COMPARISON: CT Abdomen pelvis 04/20/2024. TECHNIQUE: Images were obtained in axial, coronal and sagittal planes. Intravenous contrast administ ration. This exam was performed according to our departmental dose-optimization program which include s use of Automated Exposure Control, adjustment of the mA and/or kV according to patient size and/or use of iterative reconstruction technique. FINDINGS: No abnormality involving the liver, spleen, pancreas, or adrenal glands bilaterally. Prior cholecystectomy. Right intraperitoneal catheter present with the tip seen in the region of the poste rior right pelvis. Intraperitoneal air collections anteriorly likely related to the intraperitoneal c atheter. No obstructing renal or ureteral calculi bilaterally. No hydronephrosis bilaterally. Unremarkable tiffany dder. Inspissated contrast within the appendix. No bowel obstruction, perforation, or inflammation. Prior v entral hernia repair. No dilatation of the abdominal aorta. No adenopathy or abnormal fluid collections seen. No abnormality of lower lungs bilaterally. No acute osseous abnormality. IMPRESSION: No acute intra-abdominal abnormality. Intraperitoneal air collections likely related to the right pelvic intraperitoneal catheter. Electronically signed by: Luzmaria Moffett MD 04/26/2024 12:25 AM CDT RP Due to temporary technical issues with the PACS/Fluency reporting system, reports are being signed by the in house radiologist without review as a courtesy to ensure prompt reporting. The interpreting r adiologist is fully responsible for the content of the report.
--- OUTSIDE RECORDS SUMMARY | 2024-04-28 11:51 | XMS REPORT | Continuity of Care Document ---
Author Name Unknown Address [address] [facility] [place] [address] [facility] Address [address] [facility] [address] [place] [address] Care Team Providers Care Pharmacy Account Director Name Role Phone MANSOOR STEVENSON Primary Care Physician Unavailab ÁNGEL Alfaro Attending Clinician Unavailable ÁNGEL CREWS Attending Clinician Unavailable Jordana Quevedo Attending Clinician UnavailTomy Baumann Attending Clinician Brooks Butler Attending Clinician Unavailable TRUE FELICIANO Attending Clinician Unavailable True Feliciano MD Attending Clinician [phone] GC_GCBZW_Crystala_S Attending Clinician UnavailAshley Henriquez Attending Clinician UnavailJennifer Latham Attending Clinician Unavailable JOCELYN TORREZ Attending Clinician Unavailable Jocelyn Torrez MD Attending Clinician [phone] Mack Pack Attending Clinician Unavailable MOY SAVAGE Attending Clinician UnavailMOY Garcia Attending Clinician UnavailGAYLE Su Attending Clinician Unavailable Gayle Davis Attending Clinician [phone] Doctor Unassigned, [place] Attending Clinician U ÁNGEL Moss Admitting Clinician Unavailable Ashley Rodriguez Admitting Clinician UnavailTomy Escobar Admitting Clinician TRUE Alfaro Admitting Clinician Unavailable GC_GCBZW_Michael_S Admitting Clinician UnavailJennifer Latham Admitting Clinician Unavailable JOCELYN TORREZ Admitting Clinician Unavailable Mack Pack Admitting Clinician Unavailable Payers Payer Name Policy Type Policy Number Effective Date Expirati on Date Source [place] [id number] 2008 00:00:00 [place] [id number] 2019 00:00:00 [facility] [id number] 2022 00:00:00 2023 00:00:00 Problems Condition Name [...] abdominal pain Disease Active 7-03 00:00: 00 [facility] Migraines Migraines Disease Active 2- 00:00: 00 [facility] Tobacco use disorder Tobacco use disorder Disease Active 10-30 00:00: 00 [facility] Normal delivery Normal delivery Disease Resolve d 02-21 00:00: 00 2013-10-30 00:00:00 2013-10-30 14:55:10 [facility] Chorioamni onitis Chorioamni onitis Disease Resolve d 02-21 00:00: 00 2013-10-30 00:00:00 2013-10-30 14:55:12 [facility] with poor obstetric history with poor obstetric history Disease Resolve d 02-21 00:00: 00 2013-10-30 00:00:00 2013-10-30 14:55:14 [facility] PROM (premature rupture of membranes) PROM (premature rupture of membranes) Disease Resolve d 2009- 6-14 00:00: 00 2013-10-30 00:00:00 2013-10-30 14:55:08 [facility] Allergies, Adverse Reactions, Alerts Allergy Name Allergy Type Status Severity Reaction(s) Onset Date Inactive Date Treating Clinician Comments Source Penicill ins DA Active U ITCHING 0 -17 00:00: 00 [facility] levoflox acin DA Active U ANAPYLACTIC REACTION 0 17 00:00: 00 [facility] Penicill ins DA Active SV HIVES 0 6-05 00:00: 00 [facility] codeine DA Active MO VOMITING 0 6-05 00:00: 00 [facility] acetamin ophen DA Active MO VOMITING 0 6-05 00:00: 00 [facility] tramadol DA Active MO VOMITING 0 6-05 00:00: 00 [facility] levoflox acin DA Active MO VOMITING 0 6-05 00:00: 00 [facility] LEVOFLOX ACIN DRUG INGREDI Active N/V 0 - 00:00: 00 [facility] Levoflox acin Propensi ty to adverse reaction s Active Nausea and/or Vomiting 0 -29 00:00: 00 [facility] Penicill ins DA Active CO RSAH 0 2-12 00:00: 00 [facility] levoflox acin DA Active U THROAT SWELLING 0 2-12 00:00: 00 [facility] Penicill ins DA Active SV HIVES 0 1-12 00:00: 00 [facility] codeine DA Active MO VOMITING 0 1-12 00:00: 00 [facility] acetamin ophen DA Active MO VOMITING 0 1-12 00:00: 00 [facility] tramadol DA Active MO VOMITING 09-20 00:00: 00 [facility] levoflox acin DA Active MO VOMITING 09-20 00:00: 00 [facility] Penicill ins Propensi ty to adverse reaction s Active Itching 10-30 00:00: 00 [facility] PENICILL INS Drug Class Active ITCHING 10-30 00:00: 00 [facility] Penicill ins Propensi ty to adverse reaction s Active Itching 10-30 00:00: 00 [facility] No Known Drug Intolera nces DA Active U 02-09 00:00: 00 [facility] LICORICE DA Active U 02-06 00:00: 00 [facility] RASPBERR IES DA Active U 02-06 00:00: 00 [facility] No Known Contrast Allergie s DA Active U 02-06 00:00: 00 [facility] No Known Drug Allergie s DA Active U 02-06 00:00: 00 [facility] No Known Other Allergie s DA Active U 02-06 00:00: 00 [facility] Levoflox acin Allergy to substanc e Active Vomiting [facility] PENICILL INS Allergy to substanc e Active [facility] Tramadol Allergy to substanc e Active Nausea [facility] Social History Social Habit Start Date Stop Date Quantity Comments Source Exposure to SARS-CoV-2 (event) Not sure [facility] History of tobacco use Cigarette Smoker [facility] Alcoholic beverage intake 2024-04-10 00:00:00 2024-04-10 00:00:00 Current drinker of alcohol (finding) [facility] History of Social function 2024-04-10 00:00:00 2024-04-10 00:00:00 [facility] Alcohol intake 2020-06-06 00:00:00 2020-06-06 00:00:00 Current drinker of alcohol (finding) [facility] Alcohol Comment 2013-10-30 00:00:00 2013-10-30 00:00:00 occasionally [facility] Cigarettes smoked current (pack per day) - Reported 2013-10-30 00:00:00 2013-10-30 00:00:00 [facility] Cigarette pack-years 2013-10-30 00:00:00 2013-10-30 00:00:00 [facility] Tobacco use and exposure 2013-10-30 00:00:00 2013-10-30 00:00:00 Smokeless tobacco non-user [facility] Sex assigned at 1985 00:00:00 1985 00:00:00 [facility] Smoking Status Start Date Stop Date Source Former Smoker Guadalupe Larose Smokes tobacco daily 2013-10-30 00:00:00 [facility] Medications Ordered Medication Name Filled Medication Name Start Date Stop Date Current Medication? Ordering Clinician Indication Dosage Frequency Signature (SIG) Comments Components Source ketorolac (TORADOL) injection 15 mg 04-10 16:30: 00 04-10 16:02 :00 No 15mg 15 mg, Slow IV Push, ONCE, 1 dose, On Sat04/10/24 at 1130, Routine [facility] iopamidol (ISOVUE 370-500 mL) injection 75 mL 04-10 15:54: 00 04-10 15:55 :00 No [id number] 75mL 75 mL, Intravenou s, ONCE, 1 dose, On Sat04/10/24 at 1115, Routine [facility] HYDROcodone -acetaminop hen (NORCO 5) tablet 1 tablet 04-10 15:45: 00 04-10 16:01 :00 No 1{tbl} 1 tablet, Oral, ONCE, 1 dose, On Sat04/10/24 at 1045, BILL [facility] traMADoL 50 mg tablet 04-10 00:00: 00 04-16 04:59 :00 Yes [id number] 50mg Take 1 tablet by mouth every 6 (six) hours as needed for Pain (scale 7-10) for up to 5 days. Indication s: acute pain [facility] morpHINE (4 mg/mL) injection 4 mg 01-28 04:15: 00 01-28 04:20 :00 No 4mg 4 mg, Slow IV Push, ONCE, 1 dose, On Sat01/28/24 at 2315, STAT [facility] iopamidol (ISOVUE 370-500 mL) injection 100 mL 01-28 03:30: 00 01-28 03:30 :00 No [id number] 100mL 100 mL, Intravenou s, ONCE, 1 dose, On Sat01/28/24 at 2230, Routine [facility] ondansetron (ZOFRAN (PF)) injection 4 mg 01-28 02:15: 00 01-28 02:23 :00 No 4mg 4 mg, Slow IV Push, ONCE, 1 dose, On Sat01/28/24 at 2115, BILL [facility] morpHINE (4 mg/mL) injection 4 mg 01-28 02:15: 01-28 02:23 :00 No 4mg 4 mg, Slow IV Push, ONCE, 1 dose, On Sat01/28/24 at 2115, STAT [facility] ibuprofen 800 mg tablet 01-28 00:00: 00 Yes [id number] 800mg Take 1 tablet by mouth every 8 (eight) hours as needed for Pain (scale 4-6) (ALTERNATE WITH ULTRAM FOR PAIN). [facility] traMADoL (ULTRAM) 50 mg tablet 01-27 00:00: 00 Yes [id number] 50mg Take 1 tablet by mouth every 6 (six) hours as needed for Pain (scale 7-10). Indication s: acute pain [facility] ondansetron (ZOFRAN (PF)) injection 4 mg 11-07 05:15: 00 11-07 05:06 :00 No 4mg 4 mg, Slow IV Push, ONCE, 1 dose, On Sat11/07/23 at 2315, BILL [facility] FENTanyl PF (SUBLIMAZE (PF)) injection 75 mcg 11-07 05:00: 00 11-07 04:57 :00 No 75ug 75 mcg, Slow IV Push, ONCE, 1 dose, On Adore 11/07/23 at 2300, STAT [facility] NaCl 0.9% (NS) bolus infusion 1,000 mL 11-07 03:45: 00 11-07 04:45 :00 No 1000mL at 999 mL/hr, 1,000 mL, IV Infusion, ONCE, 1 dose, On Adore 11/07/23 at 2145, STAT [facility] morpHINE (4 mg/mL) injection 4 mg 11-07 03:30: 00 11-07 03:27 :00 No 4mg 4 mg, Slow IV Push, ONCE, 1 dose, On Adore 11/07/23 at 2130, STAT [facility] clindamycin in 5 % dextrose (CLEOCIN) [...] br>Restric kathrine use approved by: ED PROVIDER [facility] gentamicin 150 mg in NaCl 0.9% (NS) 11-07 02:45: 00 11-07 03:49 :00 No 150mg 150 mg, IV Piggyback, ONCE, 1 dose, On Adore 11/07/23 at 2045, STAT
Re ason for Anti-Infec tive: Documented Infection< br>Documen kathrine Infection Site: Pelvic
Duration of Therapy: Other (see Comments) [facility] iopamidol (ISOVUE 370-500 mL) injection 100 mL 11-07 02:00: 00 11-07 02:00 :00 No [id number] 100mL 100 mL, Intravenou s, ONCE, 1 dose, On Adore 11/07/23 at 2000, Routine [facility] morpHINE (4 mg/mL) injection 4 mg 11-07 01:45: 00 11-07 01:35 :00 No 4mg 4 mg, Slow IV Push, ONCE, 1 dose, On Adore 11/07/23 at 1945, STAT [facility] NaCl 0.9% (NS) bolus infusion 1,000 mL 11-07 00:15: 00 11-07 02:16 :00 No 1000mL at 999 mL/hr, 1,000 mL, IV Infusion, ONCE, 1 dose, On Adore 11/07/23 at 1815, STAT [facility] FENTanyl PF (SUBLIMAZE (PF)) injection 75 mcg 11-07 00:15: 00 23:52 :00 No 75ug 75 mcg, Slow IV Push, ONCE, 1 dose, On Adore 11/07/23 at 1815, STAT [facility] ondansetron (ZOFRAN (PF)) injection 4 mg 11-07 00:15: 00 23:52 :00 No 4mg 4 mg, Slow IV Push, ONCE, 1 dose, On Adore 11/07/23 at 1815, BILL [facility] ibuprofen 600 mg tablet 2017-09 0-17 00:00: 00 Yes 600mg Take 1 tablet by mouth every 6 (six) hours as needed for Pain (scale 4-6). [facility] estradiol 0.05 mg/24 hr semiweekly transdermal patch Apply 1 patch twice a week by transdermal route. estradiol 0.05 mg/24 hr semiweekly transdermal patch Apply 1 patch twice a week by transdermal route. No 1patch( es) Q3.5D estradiol 0.05 mg/24 hr semiweekly transderma l patch Apply 1 patch twice a week by transderma l route. [facility] Probiotic Probiotic No Probiotic [facility] Immunizations Ordered Immunization Name Filled Immunization Name Date Status Comments Source Td 2012-10-10 00:00:00 Completed [facility] Td 2012-10-10 00:00:00 Completed [facility] Td 2012-10-10 00:00:00 Completed [facility] Td 2012-10-10 00:00:00 Completed [facility] Td 2012-10-10 00:00:00 Completed [facility] TD, NOS Unknown Completed [facility] TD, NOS Unknown Completed [facility] TD, NOS Unknown Completed [facility] Vital Signs Vital Name Observation Time Observation Value Comments S ource Systolic blood pressure 2024-04-10 18:15:00 121 mm[Hg] [facility] Diastolic blood pressure 2024-04-10 18:15:00 82 mm[Hg] [facility] Heart rate 2024-04-10 18:15:00 85 /min [facility] Body temperature 2024-04-10 18:15:00 36.72 Berna [facility] Respiratory rate 2024-04-10 18:15:00 16 /min [facility] Oxygen saturation in Arterial blood by Pulse oximetry 2024-04-10 18:15:00 100 /min [facility] Body height 2024-04-10 14:15:00 154.9 cm [facility] Body weight 2024-04-10 14:15:00 52.164 kg [facility] BMI 2024-04-10 14:15:00 21.73 kg/m2 [facility] Heart rate 2024-01-29 05:14:00 83 /min [facility] Body temperature 2024-01-29 05:14:00 36.94 Berna [facility] Respiratory rate 2024-01-29 05:14:00 16 /min [facility] Oxygen saturation in Arterial blood by Pulse oximetry 2024-01-29 05:14:00 100 /min [facility] Systolic blood pressure 2024-01-29 05:00:00 120 mm[Hg] [facility] Diastolic blood pressure 2024-01-29 05:00:00 93 mm[Hg] [facility] Body height 2024-01-29 00:35:00 152.4 cm [facility] Body weight 2024-01-29 00:35:00 54.432 kg [facility] BMI 2024-01-29 00:35:00 23.44 kg/m2 [facility] Body Weight 2024-01-07 00:00:00 117 [...] Medical Heart rate 2023-11-08 06:15:00 85 /min [facility] Respiratory rate 2023-11-08 06:15:00 12 /min [facility] Oxygen saturation in Arterial blood by Pulse oximetry 2023-11-08 06:15:00 99 /min [facility] Systolic blood pressure 2023-11-08 06:00:00 109 mm[Hg] [facility] Diastolic blood pressure 2023-11-08 06:00:00 89 mm[Hg] [facility] Body temperature 2023-11-08 05:45:00 36.56 Berna [facility] Body height 2023-11-07 23:01:00 154.9 cm [facility] Body weight 2023-11-07 23:01:00 54.885 kg [facility] BMI 2023-11-07 23:01:00 22.86 kg/m2 [facility] BP Systolic 2023-11-07 00:00:00 110 [...] Systolic blood pressure 2020-06-06 20:49:00 120 mm[Hg] [facility] Diastolic blood pressure 2020-06-06 20:49:00 85 mm[Hg] [facility] Heart rate 2020-06-06 20:49:00 86 /min [facility] Procedures Procedure Date / Time Performed Performing Clinician Source CT ABDOMEN PELVIS W CONTRAST 2024-04-10 16:00:13 Ángel Crews [facility] LIPASE 2024-04-10 15:20:[address] [facility] COMP. METABOLIC PANEL ([id number]) 2024-04-10 15:20:00 Ángel Crews [facility] CBC WITH DIFF 2024-04-10 15:20:00 Ángel Crews [facility] URINALYSIS 2024-04-10 15:20:[address] [facility] US OVARY TORSION 2024-01-29 03:56:38 True Feliciano [facility] CT ABDOMEN PELVIS W CONTRAST 2024-01-29 02:33:48 True Feliciano [facility] LIPASE 2024-01-29 01:42:00 True Feliciano [facility] COMP. METABOLIC PANEL ([id number]) 2024-01-29 01:42:00 True Feliciano [facility] CBC WITH DIFF 2024-01-29 01:42:00 True [facility] URINALYSIS 2024-01-29 01:42:00 True Feliciano [facility] CT, abdomen + pelvis, w/wo contrast 2023-12-17 00:00:00 [facility] CT, abdomen + pelvis, w/wo contrast 2023-11-29 00:00:[address] [facility] [address], abdomen + pelvis, w/wo contrast 2023-11-14 00:00:00 [facility] LACTIC ACID WHOLE BLOOD 2023-11-08 03:08:00 Do iglesia Torrez [facility] CT ABDOMEN PELVIS W CONTRAST 2023-11-08 01:01:00 Jocelyn Torrez [facility] LIPASE 2023-11-07 23:47:00 [facility] COMP. METABOLIC PANEL ([id number]) 2023-11-07 23:47:00 Jocelyn Torrez [facility] CBC WITH DIFF 2023-11-07 23:47:00 Jocelyn Torrez [facility] URINALYSIS 2023-11-07 23:47:00 Jocelyn Torrez [facility] CONSENT/REFUSAL FOR DIAGNOSIS AND TREATMENT 2023-11-07 22:49:54 Doctor Unassigned, [place] [facility] Hysterectomy 2023-09-23 00:00:00 Guadalupe Warren edical Hysteroscopy Biopsy 2023-08-09 00:00:00 [facility] XR HAND <3 VW RIGHT 2020-06-06 20:55:12 Gayle Lopez [facility] ASSIGNMENT OF BENEFITS 2020-06-06 20:30:19 Docto r Unassigned, [place] [facility] DME/SUPPLY JUSTIFICATION 2020-05-29 05:01:00 Doc tor Unassigned, [place] [facility] Hernia Repair 2014-09-09 00:00:00 [facility] Cholecystectomy (Gallbladder) 2006-09-09 00:00:00 [facility] Encounters Start Date/Time End Date/Time Encounter Type Admission Type Attending [facility] Emergency Department Facility Care Department Encounter ID Source 2024-04-10 09:16:00 2024-04-10 13:20:00 Emergency X ÁNGEL CREWS JOSHUA [facility] ERT [id number] [facility] 2024-04-10 09:16:00 2024-04-10 13:20:00 Emergency Ángel Crews [facility] [id number] [facility] 2024-03-06 20:21:00 2024-03-06 23:20:00 Emergency EM Jordana Quevedo [facility] [id number] [facility] 2024-03-02 08:43:00 2024-03-03 10:53:00 Inpatient Krystle Martinoan [facility]01 [id number] [facility] 2024-03-02 08:43:00 2024-03-03 10:53:00 Inpatient Krystle Martinoan [facility]01 [id number] [facility] 2024-02-12 19:18:00 2024-02-12 23:54:00 Emergency EM Brooks Duran [facility] [id number] [facility] 2024-01-28 19:38:00 2024-01-29 00:16:00 Emergency X TRUE FELICIANO [facility] ERT [id number] [facility] 2024-01-28 19:38:00 2024-01-29 00:16:00 Emergency True Feliciano [facility] [id number] [facility] 2024-01-07 00:00:00 2024-01-07 00:00:00 Ashley Rodriguez MD: [address], [place] [id number] , Ph. [facility] - GC_GCBZW_Kaylynn Mesa* [id number] [facility] 2023-12-31 00:00:00 2023-12-31 00:00:00 HERBERTH Galo: [address], [place] [id number] , Ph. [facility] - GC_GCBZW_Kaylynn Mesa* [id number] [facility] 2023-12-17 00:00:00 2023-12-17 00:00:00 Ashley Rodriguez MD: [address], [place] [id number] , Ph. [facility] - GC_GCBZW_Kaylynn Mesa* [id number] [facility] 2023-12-13 00:00:00 2023-12-13 00:00:00 NEGAR MyrickP: [address], [place] [phone] , Ph. [facility] - GC_GCBZW_Kaylynn Mesa* [id number] [facility] 2023-11-29 00:00:00 2023-11-29 00:00:00 Ashley Rodriguez MD: [address], [place] [address] , Ph. GC_GCBZW_Nini nash_Gregor [facility] - GC_GCBZW_Kaylynn Mesa* [id number] [facility] 2023-11-27 00:00:00 2023-11-27 00:00:00 Outpatient GC_GCBZW_Ka diyala_S [facility] [id number] [facility] 2023-11-20 00:00:00 2023-11-20 00:00:00 Ashley Rodriguez MD: [address], [place] [phone] , Ph. GC_GCBZW_Ka diyala_S [facility] - GC_GCBZW_Kaylynn palomares Moshe* [id number] [facility] 2023-11-20 00:00:00 2023-11-20 00:00:00 Ashley Rodriguez MD: [address], [place] [phone] , Ph. [facility] - GC_GCBZW_Kaylynn marielle Moshe* [id number] [facility] 2023-11-19 11:00:00 2023-11-19 11:00:00 Outpatient Ashley Blevins [facility] [id number] [facility] 2023-11-18 00:00:00 2023-11-18 00:00:00 Outpatient GC_GCBZW_Ka diyala_S [facility] [id number] [facility] 2023-11-13 00:00:00 2023-11-13 00:00:00 Ashley Rodriguez MD: [address], [place] [phone] , Ph. GC_GCBZW_Ka diyala_S [facility] - GC_GCBZW_Kaylynn palomares Moshe* [id number] [facility] 2023-11-13 00:00:00 2023-11-13 00:00:00 Ashley Rodriguez MD: [address], [place] [phone] , Ph. [facility] - GC_GCBZW_Kaylynn Mesa* [id number] [facility] 2023-11-11 00:00:00 2023-11-11 00:00:00 Outpatient GC_GCBZW_Nini lomaxnancy_Gregor [facility] [id number] [facility] 2023-11-08 03:21:00 2023-11-10 10:07:00 Inpatient Jennifer Cruz [facility] [id number] [facility] 2023-11-07 17:03:00 2023-11-08 00:37:00 Emergency X JOCELYN TORREZ [facility] ERT [id number] [facility] 2023-11-07 17:03:00 2023-11-08 00:37:00 Emergency Arjun Torreznell [facility] [id number] [facility] 2023-11-07 00:00:00 2023-11-07 00:00:00 HERBERTH Galo: [address], [place] [phone] , Ph. [facility] - GC_GCBZW_Kaylynn Mesa* [id number] [facility] 2023-11-07 00:00:00 2023-11-07 00:00:00 HERBERTH Galo: [address], [place] [address] , Ph. [facility] - GC_GCBZW_Kaylynn marielle Moshe* [id number] [facility] 2023-11-04 00:00:00 2023-11-04 00:00:00 Outpatient GC_GCBZW_Nini lomaxnancy_Gregor [facility] [id number] [facility] 2023-10-30 00:00:00 2023-10-30 00:00:00 Ashley Rodriguez MD: [address], [place] [address] , Ph. [facility] GC_GCBZW_Kaylynn marielle Moshe* [id number] [facility] 2023-10-22 14:33:00 2023-10-23 10:25:00 Inpatient EM Mack Pack [facility].01 [id number] [facility] 2023-10-22 14:33:00 2023-10-23 10:25:00 Inpatient EM Mack Pack [facility] MEDI.01 [id number] [facility] 2023-10-21 22:17:00 2023-10-21 22:17:00 Outpatient Mack Pack [facility] [id number] [facility] 2023-10-21 22:17:00 2023-10-21 22:17:00 Outpatient Mack Pack [facility] LABO [id number] [facility] 2023-10-21 00:00:00 2023-10-21 00:00:00 Outpatient GC_GCBZW_Ka diyala_S [facility] [id number] [facility] 2023-10-21 00:00:00 2023-10-21 00:00:00 CHELSY Myrick: [address], [place] [address] , Ph. [facility] - GC_GCBZW_Kaylynn Mesa* [id number] [facility] 2023-09-30 00:00:00 2023-09-30 00:00:00 Outpatient GC_GCBZW_Ka diyala_S [facility] [id number] [facility] 2023-09-30 00:00:00 2023-09-30 00:00:00 CHELSY Myrick: [address], [place] [address] , Ph. [facility] - GC_GCBZW_Kaylynn Mesa* [id number] [facility] 2023-09-23 12:27:00 2023-09-23 12:27:00 Outpatient Ashley Blevins [facility] [id number] [facility] [place] 2023-09-20 00:00:00 2023-09-20 00:00:00 Outpatient GC_GCBZW_Ka diyala_S PRIV PRIV [id number] [facility] 2023-09-17 00:00:00 2023-09-17 00:00:00 Outpatient GC_GCBZW_Ka diyala_S PRIV PRIV [id number] [facility] 2023-09-13 00:00:00 2023-09-13 00:00:00 Outpatient GC_GCBZW_Ka diyala_S PRIV PRIV [id number] [facility] 2023-08-27 00:00:00 2023-08-27 00:00:00 Outpatient GC_GCBZW_Ka diyala_S PRIV PRIV [id number] [facility] 2023-08-09 00:00:00 2023-08-09 00:00:00 Outpatient GC_GCBZW_Ka diyala_S PRIV PRIV [id number] [facility] 2023-08-09 00:00:00 2023-08-09 00:00:00 Outpatient GC_GCBZW_Ka diyala_S PRIV PRIV [id number] [facility] 2023-06-19 00:00:00 2023-06-19 00:00:00 Outpatient GC_GCBZW_Ka diyala_S PRIV PRIV [id number] [facility] 2023-06-19 00:00:00 2023-06-19 00:00:00 Outpatient GC_GCBZW_Ka diyala_S PRIV PRIV [id number] [facility] 2023-06-19 00:00:00 2023-06-19 00:00:00 Outpatient GC_GCBZW_Ka diyala_S PRIV PRIV [id number] [facility] 2023-06-19 00:00:00 2023-06-19 00:00:00 Outpatient GC_GCBZW_Ka diyala_S PRIV PRIV [id number] [facility] 2023-06-18 00:00:00 2023-06-18 00:00:00 Outpatient GC_GCBZW_Ka diyala_S PRIV PRIV [id number] [facility] 2023-06-04 00:00:00 2023-06-04 00:00:00 Outpatient GC_GCBZW_Ka diyala_S PRIV PRIV [id number] [facility] 2022-08-23 13:30:00 2022-08-23 13:30:00 [facility] [id number] [facility] 2022-08-08 15:30:00 2022-08-08 15:30:00 Outpatient R MOY SAVAGE [facility] [id number] [facility] 2020-06-13 16:15:00 2020-06-13 16:15:00 Outpatient R GAYLE LOPEZ [facility] [id number] [facility] 2020-06-06 15:55:12 2020-06-06 23:59:00 [facility] [place] 1..840.114 350.1.13.10 4.2.7.2.[id number] [facility] 2020-06-06 16:00:00 2020-06-06 16:00:00 Outpatient R [facility] [id number] [facility] 2020-06-06 15:34:00 2020-06-06 15:49:00 Office Visit [facility] 1..840.114 350.1.13.10 4.2.7.2.[id number] [facility] 2020-06-06 00:00:00 2020-06-06 00:00:00 Orders Only Doctor Unassigned, [place] [facility] 1..840.114 350.1.13.10 4.2.7.2.[id number] [facility] 2020-05-29 00:00:00 2020-05-29 00:00:00 Orders Only Doctor Unassigned, [place] [facility] 1.2.840.114 350.1.13.10 4.2.7.2.[id number] [facility] Results Test Description Test Time Test Comments Results Result Co mments Source [facility]. METABOLIC PANEL (54571)2024-04-10 17:04:20* Test Item Value Reference Range Interpretation Comme nts NA (test code = 0283390053) 135 mmol/L 135-145 K (test code = 2024911055) 4.0 3.5-5.0 CL (test code = 1619581327) 104 mmol/L 98-108 CO2 TOTAL (test code = 6134943479) 19 mmol/L 23-31 L AGAP (test code = 2831677635) 12 2-16 BUN (test code = 7962267955) 19 mg/dL 7-23 GLUCOSE (test code = 0345160653) 83 mg/dL 70-110 CREATININE (test code = 2160-0) 0.77 mg/dL 0.50-1.04 TOTAL BILI (test code = 8889838297) 0.8 mg/dL 0.1-1.1 CALCIUM (test code = 0452758210) 9.1 mg/dL 8.6-10.6 T PROTEIN (test code = 5289685857) 7.6 g/dL 6.3-8.2 ALBUMIN (test code = 7372583969) 4.7 g/dL 3.5-5.0 ALK PHOS (test code = 6235550336) 67 U/L 34-122 ALTv (test code = 1742-6) 19 U/L 5-35 AST(SGOT) (test code = 8945350261) 33 U/L 13-40 eGFR (test code = 44498-2) 101.4 mL/min/1.73m2 CKD-EPI eGFR (2020). Assuming creatinine has been stable day-to-day for at least three months, the eGFR indicates Category G1 (>= 90 mL/min/1.73 m2) Lab Interpretation (test code = 24504-9) Abnormal [facility] PEL[facility] W [id number] 16:59:37ORDERING PHYSICIAN: ÁNGEL CREWS. HISTORY: Abdominal pain, [...] normal. Osseous Structures: No suspicious lesions are identified.[facility] HospitalCBC WITH [id number] 16:21:29* Test Item Value Reference Range Interpretation [...] 34.3 g/dL 31.6-35.1 RDW-SD (test code = 28408-6) 41.5 fL 39.0-49.9 RDW-CV (test code = 788-0) 12.8 % 12.0-15.5 PLT (test code = 777-3) 380 166-358 H MPV (test code = 10150-4) 10.3 fL 9.5-12.9 NRBC/100 WBC (test code = 7152536647) 0.0 0.0-10.0 NRBC x10^3 (test code = 8583663010) See_Comment [Automated messa ge] The system which generated this result transmitted reference range: 10*3/?L. The reference range was not used to interpret this result as normal/abnormal. GRAN MAT (NEUT) % (test code = 770-8) 71.8 % IMM GRAN % (test code = 4955959404) 0.50 % LYMPH % (test code = 736-9) 21.9 % MONO % (test code = 5905-5) 4.8 % EOS % (test code = 713-8) 0.5 % BASO % (test code = 706-2) 0.5 % GRAN MAT x10^3(ANC) (test code = 5102168067) 9.51 10*3/uL 1.88-7.09 H IMM GRAN x10^3 (test code = 5467481257) 0.06 10*3/uL 0.00-0.06 LYMPH x10^3 (test code = 731-0) 2.90 10*3/uL 1.32-3.29 MONO x10^3 (test code = 742-7) 0.63 10*3/uL 0.33-0.92 EOS x10^3 (test code = 711-2) 0.06 10*3/uL 0.03-0.39 BASO x10^3 (test code = 704-7) 0.07 10*3/uL 0.01-0.07 Lab Interpretation (test code = 27555-7) Abnormal [facility] HospitalUA RFLX MICR CULT IF [id number] 21:58:00* Test Item Value Reference Range Interpretation [...] Indication for culture: Dysuria/FrequencySpecimen Description: CLEAN CATCH [id number] 14:41:00* Test Item Value Reference Range Interpretation Comme nts SURGICAL (test code = SR) R UN DATE: 03/03/24 [facility] PAGE 1 RUN TIME: 1442 Specimen Inquiry RUN USER: INTERFACE Tutu ATIENT: MARIA DEL CARMEN RUIZ LOC: U #: [id number] AGE/SX: 38/F ROOM: [facility] RE03/02/24REG DR: Tomy Le : 85 BED: A DIS: 03/03/24 STATUS: DIS Gita TLOC: SPEC #: [id number] RECD: 03/02/24-1517 STATUS: SOUT RE #: [id number] SANTY: 03/02/24-[address]: Tomy Le MD ENTERED: 03/02/24-1520 SP TYPE: SURGICAL OTHR DR: ORDERED: ANATOMIC SPEC/2, SPEC TRACK, 49338/2 PROCEDURES: 23841 (03/03/24-1133) TISSUES: A. OVARY, RIGHT B. VAGINAL [...] cassette B1.(CAA; 03/02/2024) Technical component performed at [facility] [place] [address] Immunohistochemical stains and Special Stains are performed at [facility] [place], [address] [place] [address], [address], [place] [address] Unless gross only, the diagnosis is based upon microscopic examination. CONTINUED ON NEXT PAGE R UN DATE: 03/03/24 [facility] - Laboratory PAGE 2 RUN TIME: 1442 Specimen Inquiry RUN USER: INTERFACE S PEC #: [id number] PATIENT: MARIA DEL CARMEN RUIZ #[id number] (Continued) GROSS DESCRIPTION (Continued) Immunohistochemistry: This test [...] Stephani Adame 03/03/24 1441 END OF REPORT [id number] 06:35:00* Test Item Value Reference Range Interpretation Comme nts GLUBED (test code = GLUBED) 69 mg/dL 65-110 N CBC W/AUTO [id number] 06:02:00* Test Item Value Reference Range Interpretation [...] # (test code = BA#) 0.1 K/mm3 FRENFW3100-20-56 15:22:00* Test Item Value Reference Range Interpretation Comme nts GLUBED (test code = GLUBED) 101 mg/dL 65-110 N [id number] 10:31:00* Test Item Value Reference Range Interpretation Comme nts GLUBED (test code = GLUBED) 75 mg/dL 65-110 N BASIC METABOLIC [id number] 13:48:00* Test Item Value Reference Range Interpretation [...] if thepatient's age is <18 years. LIVER [id number] 13:48:00* Test Item Value Reference Range Interpretation [...] range as of January 2024 CBC W/AUTO DXAM1038-03-52 13:14:00* Test Item Value Reference Range Interpretation [...] BA#) 0.1 K/mm3 - CT ABD PELVIS W/[id number] 22:17:00 [facility] : 1985 Sex: F Patient Name: MARIA DEL CARMEN RUIZ Unit No: [id number] EXAMS: CPT CODE: [id number] CT ABD PELVIS W/CONT 70896 CT abdomen pelvis with contrast, 02/12/2024. COMPARISON: [...] Reported and signed by: Dewey Martinez MD [facility] NAME: MARIA DEL CARMEN RUIZ Radiology Department PHYS: Brooks Frost MD [address] : 1985 AGE: 38 SEX: F [place], [place] [address] LOC: QUOC PHONE #:[phone] EXAM DATE: 02/12/2024 STATUS: REG ER FAX #: [phone] RAD NO: Page 1 Signed Report1 Patient Name: MARIA DEL CARMEN RUIZ Unit No: [id number] EXAMS: CPT CODE: [id number] CT ABD PELVIS W/CONT 89647 (Continued) CC: Ashley Rodriguez MD; Brooks Duran MD Technologist: RT Hue CTDI: DLP: Trnscrbd D/ (2217) [email or web address] [facility] NAME: MARIA DEL CARMEN RUIZ Radiology Department PHYS: Brooks Frost MD [address] : 1985 AGE: 38 SEX: F [place], [place] [address] LOC: DereckERS PHONE #: [phone] EXAM DATE: 02/12/2024 STATUS: REG ER FAX #: [phone] RAD NO: Page 2 Signed Report 1 Patient Name: MARIA DEL CARMEN RUIZ Unit No: [id number] EXAMS: CPT CODE: [id number] CT ABD PELVIS W/CONT 92891 (Continued) Orig Print D/T:S: 02/12/2024 (2219) [facility] NAME: MARIA DEL CARMEN RUIZ Radiology Department PHYS: WRIMIBrooks Grant MD [address] : 1985 AGE: 38 SEX: F [place], [place] [address] LOC: DereckERS PHONE #: [phone] EXAM DATE: 02/12/2024 STATUS: REG ER FAX #: [phone] RAD NO: Page 3 Signed Report 1 COMPREHENSIVE METABOLIC [id number] 21:32:00* Test Item Value Reference Range Interpretation [...] ew normal range as of January 2024 [id number] 21:32:00* Test Item Value Reference Range Interpretation Comme nts LIPASE (test code = LIP) 52 units/L 12-53 N Please note new normal range as of January 2024 UA RFLX MICR CULT IF [id number] 21:07:00* Test Item Value Reference Range Interpretation [...] for culture: Suprapubic PainSpecimen Description: RANDOMC W/AUTO [id number] 20:59:00* Test Item Value Reference Range Interpretation [...] code = BA#) 0.1 K/mm3 US OVARY [id number] 04:44:22Ordering physician: TRUE FELICIANO INDICATION: Pelvic pain, [...] Doppler waveforms. The patient is status post leftnephrectomy.[facility] HospitalCT ABDOMEN PELVIS W [id number] 03:43:12Ordering physician: TRUE FELICIANO Indication: Acute abdominal [...] the abdomen and pelvis demonstrate no osseousdestructive lesion.[facility] HospitalCB with Jsprlrbcjqtr3383-38-61 02:51:42* Test Item Value Reference Range Interpretation [...] 33.7 g/dL 31.6-35.1 RDW-SD (test code = 69033-4) 46.0 fL 39.0-49.9 RDW-CV (test code = 788-0) 13.3 % 12.0-15.5 PLT (test code = 777-3) 314 166-358 MPV (test code = 43761-3) 11.4 fL 9.5-12.9 NRBC/100 WBC (test code = 0512277133) 0.0 0.0-10.0 NRBC x10^3 (test code = 2526148802) See_Comment [Automated messa ge] The system which generated this result transmitted reference range: 10*3/?L. The reference range was not used to interpret this result as normal/abnormal. GRAN MAT (NEUT) % (test code = 770-8) 50.7 % IMM GRAN % (test code = 5424079480) 0.20 % LYMPH % (test code = 736-9) 39.2 % MONO % (test code = 5905-5) 7.6 % EOS % (test code = 713-8) 1.7 % BASO % (test code = 706-2) 0.6 % GRAN MAT x10^3(ANC) (test code = 1399204335) 5.46 10*3/uL 1.88-7.09 IMM GRAN x10^3 (test code = 4683867823) 0.00-0.06 LYMPH x10^3 (test code = 731-0) 4.22 10*3/uL 1.32-3.29 H MONO x10^3 (test code = 742-7) 0.82 10*3/uL 0.33-0.92 EOS x10^3 (test code = 711-2) 0.18 10*3/uL 0.03-0.39 BASO x10^3 (test code = 704-7) 0.07 10*3/uL 0.01-0.07 Lab Interpretation (test code = 06820-9) Abnormal [facility] HospitalComplete Metabolic Uuszu4379-15-95 02:19:38* Test Item Value Reference Range Interpretation Comme nts NA (test code = 6502095048) 139 mmol/L 135-145 K (test code = 2547898895) 4.1 mmol/L 3.5-5.0 CL (test code = 1556928351) 104 mmol/L 98-108 CO2 TOTAL (test code = 5254388166) 27 mmol/L 23-31 AGAP (test code = 9224871272) 8 2-16 BUN (test code = 8059471177) 18 mg/dL 7-23 GLUCOSE (test code = 3327924592) 82 mg/dL 70-110 CREATININE (test code = 2160-0) 0.83 mg/dL 0.50-1.04 TOTAL BILI (test code = 6675528354) 0.4 mg/dL 0.1-1.1 CALCIUM (test code = 2077647560) 9.4 mg/dL 8.6-10.6 T PROTEIN (test code = 9551975906) 7.5 g/dL 6.3-8.2 ALBUMIN (test code = 9581404626) 4.6 g/dL 3.5-5.0 ALK PHOS (test code = 3656153104) 71 U/L 34-122 ALTv (test code = 1742-6) 32 U/L 5-35 AST(SGOT) (test code = 5156255809) 29 U/L 13-40 eGFR (test code = 28968-1) 92.7 mL/min/1.73m2 CKD-EPI eGFR (20 21). Assuming creatinine has been stable day-to-day for at least three months, the eGFR indicates Category G1 (>= 90 mL/min/1.73 m2) [facility] HospitalLipase, Avuwy9320-97-47 02:18:57* Test Item Value Reference Range Interpretation Comme nts LIPASE (test code = 4058929886) 245 U/L 0-220 H Lab Interpretation (test cod e = 56331-4) Abnormal [facility]EL[facility] W WO [id number] 14:37:00 [facility] : 1985 Sex: F Name: MARIA DEL CARMEN RUIZ [facility] : 1985 Age/S: 38 / F [address] [place] Unit #: [id number] Loc: [place] [address] Phys: Ashley Rodriguez MD Acct: [id number] Dis Date: Status: REG CLI PHONE #: [phone] Exam Date: 11/19/2023 1200 FAX #: Reason: PELVIC AND PERINEAL PAIN EXAMS: CPT: [id number] CT ABD PELVIS W WO CONT [address]27 Location Code: S17 EXAMINATION: - CT ABD [...] RUIZ : 1985 Age/S: 38 / F [address] [place] Unit #: [id number] Loc: [place] [address] Phys: Ashley Rodriguez MD Acct: [id number] Dis Date: Status: REG CLI PHONE #: [phone] Exam Date: 11/19/2023 1200 FAX #: Reason: PELVIC AND PERINEAL PAIN EXAMS: CPT: [id number] CT ABD PELVIS W WO CONT 64559 (Continued) No evidence of drainable fluid collection. [...] S: 11/19/2023 (1441)PAGE 2 Signed ReportCBC W/AUTO [id number] 05:52:00* Test Item Value Reference Range Interpretation [...] code = PLTMR) NORMAL NORMAL CBC W/AUTO [id number] 12:25:00* Test Item Value Reference Range Interpretation [...] code = PLTMR) NORMAL NORMAL infectious disease peapm4090-70-03 11:01:00* Test Item Value Reference Range Interpretation [...] code = hortensia krusei) 0 ppm 10.500-32.000 [facility] Medicalinfectious disease iwyhp0373-28-81 11:01:00* Test Item Value Reference Range Interpretation [...] code = hortensia krusei) 0 ppm 10.500-32.000 [facility] Medicalinfectious disease pbnrn8211-74-35 11:01:00* Test Item Value Reference Range Interpretation [...] code = hortensia krusei) 0 ppm 10.500-32.000 [facility] Medicalinfectious disease ggrsc9768-77-01 11:01:00* Test Item Value Reference Range Interpretation [...] code = hortensia krusei) 0 ppm 10.500-32.000 [facility]- CT ABD PELVIS W/NDWG9633-43-68 09:37:00 [facility] : 1985 Sex: F Patient Name: MARIA DEL CARMEN RUIZ Unit No: [id number] EXAMS: CPT CODE: [id number] CT ABD PELVIS W/CONT [address]3083 CT ABDOMEN AND PELVIS WITH CONTRAST: INDICATIONS:Pelvic [...] aneurysm. No suspicious bony lesion. IMPRESSION: [facility] NAME: MARIA DEL CARMEN RUIZ Radiology Department PHYS: LATESHA.Priscilla - Steffany Byrne [address] : 1985 AGE: 38 SEX: F [place] [address] LOC: F.2600 A PHONE #: [phone] EXAM DATE: 11/08/2023 STATUS: ADM IN FAX #: [phone] RAD NO: Page 1 Signed Report 1 Patient Name: MARIA DEL CARMEN HALL Unit No: [id number] EXAMS: CPT CODE: [id number] CT ABD PELVIS W/CONT 90389 (Continued) Status post hysterectomy. Some fluid strandings and mesenteric inflammations at the surgical site and atsuperior vaginal vault. No discrete walled off collection. at 0937 Reported and signed by: Barry Cook MD CC: Steffany Byrne MD; Ashley Rodriguez MD; Jennifer Salazar MD Technologist: Wei Ontiveros, RT, CT CTDI: 3.98 DLP: 193.93 Trnscrbd D/ (0937) t.SDR.VL4 [facility] NAME: SARAMARIA DEL CARMEN Radiology Department PHYS: LATESHA. - Steffany Byrne [address] : 1985 AGE: 38 SEX: F [place] [address] LOC: F.2600 A PHONE #: [phone] EXAM DATE: 11/08/2023 STATUS: ADM IN FAX #: [phone] RAD NO: Page 2 Signed Report 1 Patient Name: MARIA DEL CARMEN RUIZ Unit No: [id number] EXAMS: CPT CODE: [id number] CT ABD PELVIS W/CONT 08942 (Continued) Orig Print D/T: S: 11/08/2023 (0941) [facility] NAME: MARIA DEL CARMEN RUIZ Radiology Department PHYS: LATESHA. - Steffany Byrne [address] : 1985 AGE: 38 SEX: F [place] [address] LOC: F.2600 A PHONE #: [phone] EXAM DATE: 11/08/2023 STATUS: ADM IN FAX #: [phone] RADNO: Page 3 Signed Report 1CT ABDOMEN PELVIS W [id number] 04:23:44EXAM: CT ABDOMEN/PELVIS WITH CONTRAST HISTORY: ?Abdominal [...] TISSUES: No suspicious lytic or sclerotic bony lesions.[facility] HospitalLactic Acid Whole Yezag5788-27-82 03:17:00* Test Item Value Reference Range Interpretation Comme nts LACTIC ACID (test code = 6725218093) 1.22 mmol/L 0.50-2.20 Lab Interpretation (test cod e = 74717-2) Normal [facility] WITH [id number] 00:42:59* Test Item Value Reference Range Interpretation [...] 34.5 g/dL 31.6-35.1 RDW-SD (test code = 68733-1) 41.6 fL 39.0-49.9 RDW-CV (test code = 788-0) 12.8 % 12.0-15.5 PLT (test code = 777-3) 387 166-358 H MPV (test code = 34868-4) 10.1 fL 9.5-12.9 NRBC/100 WBC (test code = 1580535928) 0.0 0.0-10.0 NRBC x10^3 (test code = 1662772258) See_Comment [Automated message] The system which generated this result transmitted reference range: 10*3/?L. The reference range was not used to interpret this result as normal/abnormal. GRAN MAT (NEUT) % (test code = 770-8) 70.4 % IMM GRAN % (test code = 1259924740) 0.50 % LYMPH % (test code = 736-9) 19.8 % MONO % (test code = 5905-5) 8.1 % EOS % (test code = 713-8) 0.7 % BASO % (test code = 706-2) 0.5 % GRAN MAT x10^3(ANC) (test code = 0317832157) 13.44 10*3/uL 1.88-7.09 H IMM GRAN x10^3 (test code = 0120783698) 0.09 10*3/uL 0.00-0.06 H LYMPH x10^3 (test code = 731-0) 3.77 10*3/uL 1.32-3.29 H MONO x10^3 (test code = 742-7) 1.55 10*3/uL 0.33-0.92 H EOS x10^3 (test code = 711-2) 0.13 10*3/uL 0.03-0.39 BASO x10^3 (test code = 704-7) 0.10 10*3/uL 0.01-0.07 H Lab Interpretation (test code = 16793-3) Abnormal [facility] HospitalCOMP. METABOLIC PANEL (53516)2023-11-08 00:26:19* Test Item Value Reference Range Interpretation Comme nts NA (test code = 2201313546) 138 mmol/L 135-145 K (test code = 6797660990) 3.3 mmol/L 3.5-5.0 L CL (test code = 0649584029) 109 mmol/L 98-108 H CO2 TOTAL (test code = 9200532667) 22 mmol/L 23-31 L AGAP (test code = 2639500441) 7 2-16 BUN (test code = 7382073834) 17 mg/dL 7-23 GLUCOSE (test code = 3441080505) 99 mg/dL 70-110 CREATININE (test code = 2160-0) 0.69 mg/dL 0.50-1.04 TOTAL BILI (test code = 0789057627) 0.5 mg/dL 0.1-1.1 CALCIUM (test code = 6332039626) 9.1 mg/dL 8.6-10.6 T PROTEIN (test code = 1947969370) 7.1 g/dL 6.3-8.2 ALBUMIN (test code = 3015190189) 4.1 g/dL 3.5-5.0 ALK PHOS (test code = 3310754240) 76 U/L 34-122 ALTv (test code = 1742-6) 19 U/L 5-35 AST(SGOT) (test code = 5665474970) 18 U/L 13-40 eGFR (test code = 71563-2) 114.1 mL/min/1.73m2 CKD-EPI eGFR (2020). Assuming creatinine has been stable day-to-day for at least three months, the eGFR indicates Category G1 (>= 90 mL/min/1.73 m2) Lab Interpretation (test code = 08532-6) Abnormal [facility] HospitalLIPASE2024-03-01 00:25:58* Test Item Value Reference Range Interpretation Comme nts LIPASE (test code = 7281254263) 157 U/L 0-220 Lab Interpretation (test cod e = 79944-3) Normal [facility] HospitalUrinalysis macro (dipstick) panel - Urine 2023-11-07 14:37:00* Test Item Value Reference Range Interpretation Comme nts Leukocytes (test code = Leukocytes) Negative Nitrite (test code = Nitrite) negative Urobilinogen (test code = Urobilinogen) Normal Protein (test code = Protein) Negative pH (test code = pH) 6.0 Blood (test code = Blood) 1+ Specific [place] (test code = Specific [place]) 1.015 Ketone (test code = Ketone) Negative Bilirubin (test code = Bilirubin) Negative Glucose (test code = Glucose) Negative Appearance (test code = Appearance) Slightly Cloudy Color (test code = Color) Dark Yellow [facility] MedicalUrinalysis macro (dipstick) panel - Ikyfq6702-06-88 14:37:00* Test Item Value Reference Range Interpretation Comme nts Leukocytes (test code = Leukocytes) Negative Nitrite (test code = Nitrite) negative Urobilinogen (test code = Urobilinogen) Normal Protein (test code = Protein) Negative pH (test code = pH) 6.0 Blood (test code = Blood) 1+ Specific [place] (test code = Specific [place]) 1.015 Ketone (test code = Ketone) Negative Bilirubin (test code = Bilirubin) Negative Glucose (test code = Glucose) Negative Appearance (test code = Appearance) Slightly Cloudy Color (test code = Color) Dark Yellow [facility] (dipstick) panel - Wqepz4035-88-46 14:37:00* Test Item Value Reference Range Interpretation Comme nts Leukocytes (test code = Leukocytes) Negative Nitrite (test code = Nitrite) negative Urobilinogen (test code = Urobilinogen) Normal Protein (test code = Protein) Negative pH (test code = pH) 6.0 Blood (test code = Blood) 1+ Specific [place] (test code = Specific [place]) 1.015 Ketone (test code = Ketone) Negative Bilirubin (test code = Bilirubin) Negative Glucose (test code = Glucose) Negative Appearance (test code = Appearance) Slightly Cloudy Color (test code = Color) Dark Yellow [facility] Medical[facility]inalysis macro (dipstick) panel - Zmpby2671-15-54 14:37:00* Test Item Value Reference Range Interpretation Comme nts Leukocytes (test code = Leukocytes) Negative Nitrite (test code = Nitrite) negative Urobilinogen (test code = Urobilinogen) Normal Protein (test code = Protein) Negative pH (test code = pH) 6.0 Blood (test code = Blood) 1+ Specific [place] (test code = Specific [place]) 1.015 Ketone (test code = Ketone) Negative Bilirubin (test code = Bilirubin) Negative Glucose (test code = Glucose) Negative Appearance (test code = Appearance) Slightly Cloudy Color (test code = Color) Dark Yellow [facility] MedicalBASIC METABOLIC QKJRP9831-80-54 05:50:00* Test Item Value Reference Range Interpretation [...] CA) 8.3 MG/DL 8.5-10.1 L CBC W/AUTO WCXW3435-23-27 05:03:00* Test Item Value Reference Range Interpretation [...] NRBC#) 0.0 K/mm3 0.0-0.1 N COMPREHENSIVE METABOLIC [id number] 05:31:00* Test Item Value Reference Range Interpretation [...] code = ALKP) 60 Unit/L 45-117 N [id number] 05:31:00* Test Item Value Reference Range Interpretation Comme nts PHOSPHOROUS (test code = PHOS) 2.8 MG/DL 2.5-4.9 N [id number] 05:31:00* Test Item Value Reference Range Interpretation Comme nts MAGNESIUM (test code = MAG) 2.3 MG/DL 1.8-2.4 N PROTHROMBIN [id number] 05:21:00* Test Item Value Reference Range Interpretation [...] Infarction (to prevent recurrent infarct). THROMBOPLASTIN TIME [id number] 05:21:00* Test Item Value Reference Range Interpretation Comme nts THROMBOPLASTIN TIME PARTIAL (test code = PTT) 26.9 SECONDS 26-35 N [id number] 05:21:00* Test Item Value Reference Range Interpretation Comme nts FIBRINOGEN (test code = FIB) 297 mg/dL 185-453 N CBC W/AUTO [id number] 05:13:00* Test Item Value Reference Range Interpretation [...] = NRBC#) 0.0 K/mm3 0.0-0.1 N LACTIC [id number] 20:28:00* Test Item Value Reference Range Interpretation Comme nts LACTIC ACID (test code = LACT) 0.9 mmol/L 0.4-2.0 N - CT ABD PELVIS [id number] 19:03:00 [facility] 1985 Sex: F Name: MARIA DEL CARMEN RUIZ [facility] : 1985 Age/S: 38 / F [id number] [address] [place] Unit #: [id number] Loc: [place] [address] Phys: Joe Torres [employer] Acct: [id number] Dis Date: 10/23/2023 Status: DIS IN PHONE #: [phone] Exam Date: 10/21/20231837 FAX #: Reason: pain EXAMS: CPT: [id number] CT ABD PELVIS W/CONT [id number] Location:[id number] EXAM: CT ABDOMEN/PELVIS WITH CONTRAST DATE: 10/21/2023 5:08 PM HISTORY: 38-year-old with pain TECHNIQUE: Axial CT images were obtained through the abdomen and pelvisafter intravenous contrast. Coronal and sagittal reformatted images [...] Report (CONTINUED) Name: MARIA DEL CARMEN RUIZ [place] : 1985 Age/S: 38 / F [address] [facility] Unit #: [id number] Loc: [place] [address] Phys: Joe Torres NP Acct: [id number] Dis Date: 10/23/2023 Status: DIS IN PHONE #: [phone] Exam Date: 10/21/20231837 FAX #: Reason: pain EXAMS: CPT: [id number] CT ABD PELVIS W/CONT 02935 (Continued) No retroperitoneal, mesenteric or pelvic lymphadenopathy. No fluid collections or free fluid. No free air. The uterus is absent. No adnexal mass. The urinary bladder is decompressed limiting its evaluation.. No acute osseous lesions. Post surgical changes of an anterior abdominal wall repair. IMPRESSION: No acute abdominal or pelvic abnormality. at 1903 Reported and signed by: Kendal Hudson M.D. CC: Joe Torres BEARING MAKER; Ashley Rodriguez MD Technologist:Amadou Varela, RT(R) CTDI: DLP: Trnscb Date/Time: 10/21/2023 (1902) t.SDR.MOP Orig Print D/T: S: 10/21/2023 (1906) PAGE 2 Signed Report- CT ABD PELVIS [id number] 19:03:00 [facility] : 1985 Sex: F Name: MARIA DEL CARMEN RUIZ [facility] : 1985 Age/S: 38 / F [address] [address] [place] Unit #: [id number] Loc: [place] [address] Phys: Joe Torres BEARING MAKER Acct: [id number] Dis Date: Status: REG ER PHONE #:[phone] Exam Date: 10/21/2023 1836 FAX #: Reason: pain EXAMS: CPT: [id number] CT ABD PELVIS W/CONT 90925 Location:[facility] EXAM: CT ABDOMEN/PELVIS WITH CONTRAST DATE: [...] RUIZ : 1985 Age/S: 38 / F [address] [address] [place] Unit #: [id number] Loc: [place] [address] Phys: Joe Torres NP Acct: [id number] Dis Date: Status: REG ER PHONE #: [phone] Exam Date: 10/21/2023 1838 FAX #: Reason: pain EXAMS: CPT: [id number] ABD PELVIS W/CONT 81822 (Continued) No retroperitoneal, mesenteric or pelvic lymphadenopathy. Nofluid collections or free fluid. No free air. The uterus is absent. No adnexal mass. The urinary bladder is decompressed limiting its evaluation.. No acute osseous lesions. Post surgical changes of an anterior abdominal wall repair. IMPRESSION: No acute abdominal or pelvic abnormality. at 1903 Reported and signed by: Kendal Barry M.D. CC: Joe Torres BEARING MAKER; Ashley Rodriguez MD Technologist:Amadou Varela, RT(R) CTDI: DLP: Trnscb Date/Time: 10/21/2023 (1902) [email or web address].MOP Orig Print D/T: S: 10/21/2023 (1906) PAGE 2 Signed ReportUA RFLX MICR CULT IF [id number] 18:25:00* Test Item Value Reference Range Interpretation [...] srcSOURCE OF URINE: CLEAN CATCH BASIC METABOLIC [id number] 18:12:00* Test Item Value Reference Range Interpretation [...] CA) 9.1 MG/DL 8.5-10.1 N HEPATIC FUNCTION [id number] 18:12:00* Test Item Value Reference Range Interpretation [...] ALKP) 79 Unit/L 45-117 N CBC W/AUTO [id number] 17:49:00* Test Item Value Reference Range Interpretation [...] NRBC#) 0.0 K/mm3 0.0-0.1 N infectious disease [id number] 03:20:00[facility] infectious disease [id number] 03:20:00Abnormal StatusPriv[facility] MedicalS[facility] 2023-09-26 16:31:00* Test Item Value Reference Range Interpretation Comme nts SURGICAL (test code = SR) RUN DATE: 09/26/23 [facility] PAGE 1 RUN TIME: 1631 Specimen Inquiry RUN USER: INTERFACE PATIENT: MARIA DEL CARMEN RUIZ LOC: [facility] U #: [id number] AGE/SX: 37/F ROOM: RE09/23/23REG DR: Ashley Rodriguez MD : 85 BED: DIS: STATUS: [facility] TLOC: SPEC #: [id number] RECD: 09/23/23 STATUS: [facility] #: [id number] SANTY: 09/23/23 [facility] DR: Ashley Rodriguez MD ENTERED: 09/23/23 SP TYPE: SURGICAL OTHR DR: ORDERED: 07053, 63647, ANATOMIC SPEC, SPECIMEN TRACK PROCEDURES: 56015 (09/23/23) 78900 (09/26/23-0) SPECIMEN TRACK (09/23/23) TISSUES: A. UTERINE CURETTINGS [...] CONTINUED ON NEXT PAGE RUN DATE: 09/26/23 [facility] PAGE 2 RUN TIME: 1631 Specimen Inquiry RUN USER: INTERFACE SPEC #: [id number]:[facility]:[id number] PATIENT: MARIA DEL CARMEN RUIZ #[id number] (Continued) GROSS DESCRIPTION (Continued) B1 posterior cervixB2 anterior cervixB3-B4 posterior endomyometrium B5-B6 anterior endomyometriumB7 posterior reflection B8-B11 left ovarian cyst B12 left fallopian tube cut surface with entire bisected fimbriated end B13 right fallopian tube cut surface with entire bisected fimbriated end Technical tissue processing and slide preparation performed at [facility],[place] [address] [address] , [place] [address] MICROSCOPIC DESCRIPTION A and B. Microscopic examination is performed and the findings are incorporated into thefinal diagnosis. Please see diagnosis for findings. Signed SIGNATURE ON FILE Yonathan Mattbibi 09/26/23 1631 END OF REPORT GLUCOSE BEDSIDE [id number] 13:09:00* Test Item Value Reference Range Interpretation Comme nts GLUCOSE BEDSIDE TESTING (anamaria t code = GLUBED) 85 mg/dL 70-110 N BASIC METABOLIC [id number] 12:19:00* Test Item Value Reference Range Interpretation [...] CA) 9.7 MG/DL 8.5-10.1 N CBC W/AUTO [id number] 12:06:00* Test Item Value Reference Range Interpretation [...] = NRBC#) 0.0 K/mm3 0.0-0.1 N URINALYSIS [id number] 12:00:00* Test Item Value Reference Range Interpretation [...] NEGATIVE Urine Specimen Type: Clean CatchUR HCG [id number] 12:00:00* Test Item Value Reference Range Interpretation Comme nts UR HCG QUAL (test code = HCGQLU) NEGATIVE NEGATIVE Urine Specimen Type: Clean CatchXR HAND <3 VW [id number] 21:43:26No sign of fracture or dislocation joint [facility] Date/Time Note Provider Source 2024-04-10 [...] in no apparent distress. Heidi Dickson RN [facility] 2024-04-10 10:56:25 Report received from BLAYNE Slaughter [facility] 2024-04-10 09:13:23 Patient had a surgery in 01/30 and was just released to return to work and doesn't know if she pulled something at work or if it is infected. She had hysterectomy in Sep which started all of this. She denies n/v/d but has a little vaginal bleeding. Pain is in lower abdomen. Dionte Slaughter RN [facility] 2024-03-09 08:52:00 [facility] ([facility]) Clinical Note REPORT#:[id number] REPORT STATUS: Signed REPORT INITIALIZATION DATE:03/09/24 TIME: 851 PATIENT: MARIA DEL CARMEN RUIZ UNIT #: [id number] ROOM/BED: [address] : 85 AGE: 38 SEX: F [...] THIS IS NOT SEPSIS. at 0854 RPT #:[id number] END OF REPORT [facility] 2024-03-06 20:35:00 [facility] ([facility]) EMERGENCY PROVIDER REPORT REPORT#:[id number] REPORT STATUS: Signed DATE:03/06/24 TIME: 2034 PATIENT: MARIA DEL CARMEN RUIZ UNIT #: [id number] ROOM/BED: AGE: 38 SEX: F PCP PHYS: [...] pH (5 - 9) 5.0 Ur Specific [place] (1.001 - 1.035) 1.027 Urine Protein (NEG) [...] Patient has her next appointment with her OPERATING SYSTEM DESIGNER in 3 days on 03/09/2024. Additional Text [...] Status Admin Oxycodone/ 1 TAB X1ED STA 03/06 2244 DCr Acetaminophen PO 03/06 2245 Gastrointestinal Drugs Sig/Anmol Start time Last Medication Dose Route Stop Time Status Admin Glycerin 1 SUPP ONCE ONE 03/06 2200 DC RECTAL 03/06 2201 Consultation Consultation Referral/Consult Name Mary Joseph MD Grants Specialist Called OPERATING SYSTEM DESIGNER, On-call physician Grants Specialist Agrees with keya, Agrees with plan Requested [...] (Adult) Additional Instructions You may give yourself fwwn-lak-glbqrja enemas or use glycerin suppositories to assist [...] Tomy Le MD Follow-Up: As Scheduled Address: [address] [place] [address] Discharge Note I have spoken with the [...] a call to 911. at 2251 RPT #:[id number] END OF REPORT [facility] 2024-03-03 09:52:00 [facility] ([facility]) Discharge Summary REPORT#:[id number] REPORT STATUS: Signed REPORT INITIALIZATION DATE:03/03/24 TIME: 951 PATIENT: MARIA DEL CARMEN RUIZ UNIT #: [id number] ROOM/BED: [facility] : 85 AGE: 38 SEX: F ATTEND: [...] % (Auto) (14.5 - 29.7 %) 22.7 [place] % (Auto) (3.6 - 10.2 %) 8.6 Eos % (Auto) (0.0 - 3.0 %) 0.2 Baso % (Auto) (0.1 - 0.9 %) 0.4 Neut # (Auto) (K/mm3) 8.3 Lymph # (Auto) (K/mm3) 2.8 [place] # (Auto) (K/mm3) 1.1 Eos # (Auto) (K/mm3) 0.02 Baso # (Auto) (K/mm3) 0.1 Discharge Instructions PCP PCP: PCP: Tomy Le MD )( Discharge to: Home/Self Care Discharge Instructions Additional Discharge Routines: Add. instructions )( Diet: Diabetic )( Activity: Do not Submerge Incision, Light Duty, No Driving, No Echo for 6 Wks )( Additional instructions: Call for fever, increased pain, increased bleeding, or any concerning symptoms Prescriptions: e-prescribe Rx drug database reviewed: yes Discharge management: less than 30 mins, face to face encounter at 1218 RPT #:[id number] END OF REPORT [facility] 2024-03-02 15:07:00 [facility]) Full Op Note REPORT#:[id number] REPORT STATUS: Signed REPORT INITIALIZATION DATE:03/02/24 TIME: 150 PATIENT: MARIA DEL CARMEN RUIZ UNIT #: [id number] ROOM/BED: [address] : 85 AGE: 38 SEX: F [...] transferred to the PACU for further monitoring. assistant news director necessary for standard of care. Color Print Inspector responsible for retraction, blotting, additional instrumentation, tying and cutting suture, making the operative field clear, and otherwise assisting the primary surgeon. 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 Resumed sex in January, was having bleeding [...] Chemistry Sodium (136 - 145 mEq/L) 140 02/23 1150 Potassium (3.4 - 4.5 mEQ/L) 3.9 / 1150 Chloride (98 - 107 mEq/L) 109 [...] 1150 Albumin (3.2 - 4.8 g/dL) 4.4 02/23 1150 Hematology WBC (6.5 - 12.3 K/mm3) [...] - 29.7 %) 30.0 H / 1150 [place] % (Auto) (3.6 - 10.2 %) 6.3 / 1150 Eos % (Auto) (0.0 - 3.0 %) 1.2 / 1150 Baso % (Auto) (0.1 - 0.9 %) 0.7 / 1150 Neut # (Auto) (K/mm3) 6.2 / 1150 Lymph # (Auto) (K/mm3) 3.0 / 1150 [place] # (Auto) (K/mm3) 0.6 / 1150 Eos [...] pain. ALl questions answered. at 0811 RPT #:[id number] END OF REPORT [facility] 2024-02-24 12:44:00 [id number] [facility] [address] [place], [place] [address] PATIENT NAME: MARIA DEL CARMEN RUIZ ADMIT DATE: ACCOUNT NO: [id number] ROOM NO: AGE: 38 SEX: F ADMITTING PHYSICIAN: ATTENDING PHYSICIAN: Tomy Le MD Order: [id number] Test Reason : PRE-OP / (03/02/2024) Test [...] ECGs available Confirmed by BERNA JOSÉ MD ([id number]) on 02/28/2024 7:22:40 AM Referred By: Tomy Galeas Confirmed by:BERNA JOSÉ MD at 0722 PATIENT NAME: MARIA DEL CARMEN RUIZ [facility] 2024-02-12 23:12:00 [facility]) CLIENT ACCOUNT REPRESENTATIVE Consult Note REPORT#:[id number] REPORT STATUS: Signed REPORT INITIALIZATION DATE:02/12/24 TIME: 2311 PATIENT: MARIA DEL CARMEN RUIZ UNIT #: [id number] ROOM/BED: : 85 AGE: 38 SEX: F ATTEND: Brooks Duran MD ADM AUTHOR: Adrienne Back DO REPT SERVICE DT/TIME: 02/12/242311 * ALL edits or amendments must be made on the electronic/computer document * History of Present Illness HPI Requesting clinician: Dr. Duran Reason for consult: complex grain elevator clerk patient consult for vaginal pain Chief complaint: [...] of RLQ Extremities: full range of motion Neuro/ENERGY CROP FARMER: alert, oriented x 3, normal speech, no [...] (Auto) (14.5 - 29.7 %) 31.1 H [place] % (Auto) (3.6 - 10.2 %) 7.3 Eos % (Auto) (0.0 - 3.0 %) 1.0 Baso % (Auto) (0.1 - 0.9 %) 0.5 Neut # (Auto) (K/mm3) 7.0 Lymph # (Auto) (K/mm3) 3.6 [place] # (Auto) (K/mm3) 0.9 Eos # (Auto) (K/mm3) 0.12 Baso # (Auto) (K/mm3) 0.1 Laboratory Tests 02/11 2042 Urines Urine Color (YELLOW) YELLOW Urine Appearance (CLEAR) Slightly-Cloudy Urine pH (5 - 9) 5.0 Ur Specific [place] (1.001 - 1.035) 1.025 Urine Protein (NEG) [...] return precautions as well. at 2323 RPT #:[id number] END OF REPORT [facility] 2024-02-12 19:40:00 [facility] ([facility]) EMERGENCY PROVIDER REPORT REPORT#:[id number] REPORT STATUS: Signed DATE:02/12/24 TIME: 1939 PATIENT: MARIA DEL CARMEN RUIZ UNIT #: [id number] ROOM/BED: AGE: 38 SEX: F PCP PHYS: [...] for bacterial vaginosis on February 10, 2024. OPERATING SYSTEM DESIGNER: Dr. Jose Galeas General Initial Greet Date/Time [...] Dry, Intact Genitourinary General Exam deferred (to OPERATING SYSTEM DESIGNER) Neurologic Neurologic Oriented X3, Speech NL, No [...] (Auto) (14.5 - 29.7 %) 31.1 H [place] % (Auto) (3.6 - 10.2 %) 7.3 Eos % (Auto) (0.0 - 3.0 %) 1.0 Baso % (Auto) (0.1 - 0.9 %) 0.5 Neut # (Auto) (K/mm3) 7.0 Lymph # (Auto) (K/mm3) 3.6 [place] # (Auto) (K/mm3) 0.9 Eos # (Auto) (K/mm3) 0.12 Baso # (Auto) (K/mm3) 0.1 Urines Urine Color (YELLOW) YELLOW Urine Appearance (CLEAR) Slightly-Cloudy Urine pH (5 - 9) 5.0 Ur Specific [place] (1.001 - 1.035) 1.025 Urine Protein (NEG) [...] UA, CT A/P, pain control, serial reassessment. OPERATING SYSTEM DESIGNER consuly )( Re-Evaluation/Progress #1 Text/Dict Note Pain [...] .STK-MED ONE 02/11 2147 DC /05 IV /2147 2147 Electrolytic, Caloric, And Lynn Sig/Anmol Start time Last Medication Dose Route Stop Time Status Admin Sodium Chloride 50 ML .STK-MED ONE 02/11 2147 DC 06/05 IV /2147 214 Gastrointestinal Drugs Sig/Anmol Start time Last Medication Dose Route Stop Time Status Admin Ondansetron HCl 4 MG X1ED STA 02/11 1939 DC /05 IV /1939 Consultation Consultation Referral/Consult Name Tomy Le MD [...] a call to 911. at 2342 RPT #:[id number] END OF REPORT [facility] 2024-01-29 00:15:28 Pt given printed and verbal [...] in no apparent distress, Alice Hook RN [facility] 2024-01-28 22:38:26 Pt in ultrasound. Sarah Russell RN [facility] 2024-01-28 21:55:26 Pt ambulatory to bathroom. [facility] 2024-01-28 19:38:45 Pt given urine cup and placed in the lobby, pt advice to notify nurse with any other concerns or if symptoms worsen. [facility] 2024-01-28 19:34:06 C/O lower abd pain, pt states that she thinks it her abscess is back on her ovary. Pt states that she finished her vancomycin 3 weeks ago. Ann-Marie Ojeda RN [facility] 2024-01-28 19:18:00 [facility] Emergency Department Note Patient Name: Maria Del Carmen Ruiz Date of : 1985 38 year old female Treatment Room: [place] [address] Primary Care Physician: Bushra Lo Patient Escorted by: Family [5] Mode of Arrival: Personal means [1] EMS Treatment Prior to ED Arrival: WEASAND TRIMMER treatment: None Travel and Exposure Screening: Symptoms [...] hysterectomy Sep 23 for severe endometriosis at [facility] . Pt developed post-op ovaian abscess for which pt was on Vancomycin X 6 weeks and just completed the abx about 4 weeks ago. Pt reports fever of 101 this morning. Took Ibuprofen at 3:00 PM today for the pain. Denies any urinary synpotoms. Denies any vaginal discharge. History provided by: Patient and medical records coin teller used: No Abdominal Pain Pain location: LLQ [...] 03/11/2017 Surgeon: José Miguel Rene MD; Location: [facility] Location Hysterectomy September 23, 2023 (Lap [...] evidence for right ovarian torsion. RL: 460 [facility]: 28425 ABDOMEN PELVIS W CONTRAST Final Result Ordering [...] without complicating features appreciated. RL: 460 AFC: 58688 Lab Results: Lab Results CBC WITH DIFF [...] SQ EPITH 1 HPF COMP. METABOLIC PANEL (00159) NA 139 135 - 145 mmol/L K [...] Pt has a follow-up appt with her OB-CLIENT ACCOUNT REPRESENTATIVE Amount and/or Complexity of Data Reviewed External [...] Tomy Le Specialty: OG-OBSTETRICS & GYNECOLOGY [address] [facility] [address] [facility] [address] Bushra Lo Specialty: BEARING MAKER-FAMILY Relationship: PCP - General 120 [facility] [place] [address] Electronically signed by: True Feliciano MD 01/29/24 0010 T [facility] [employer] 2023-11-24 12:28:00 [id number] [facility] [address] [place], [place] [address] PATIENT NAME: MARIA DEL CARMEN RUIZ ADMIT DATE: 11/08/23 ACCOUNT NO: [id number] ROOM NO: 2600 AGE: 38 SEX: F ADMITTING PHYSICIAN: Jennifer Salazar MD ATTENDING PHYSICIAN: Jennifer Salazar MD Provider Query QUERY TEXT: Relationship Procedure Condition 360MD Query related questions should be directed to:[facility] Coding Query Hotline Please clarify the [...] of the procedure (complication). Query created by: Calry Contreras on 11/13/2023 12:53 AM at 1228 PATIENT NAME: MARIA DEL CARMEN RUIZ [facility] 2023-11-10 08:22:00 [facility] ([facility]) Discharge Summary REPORT#:[id number] REPORT STATUS: Signed REPORT INITIALIZATION DATE:11/10/23 TIME: 821 PATIENT: MARIA DEL CARMEN RUIZ UNIT #: [id number] ROOM/BED: [address] : 85 AGE: 38 SEX: F [...] pelvic adhesions (09/23) who was transferred from [facility] for pelvic abscesses. The patient's post operative [...] of this antibiotic. She will see her CLIENT ACCOUNT REPRESENTATIVE outpatient. Med Rec PCP PCP: PCP: Ashley Rodriguez MD Objective VS/I O Last Documented: Result Date Time Pulse Ox 98 11/09 031 B/P 116/80 11/10 315 B/P Mean 92.1 11/10 315 Temp 97.5 11/09 031 Pulse 79 11/09 031 Resp 18 11/09 031 O2 Delivery Room air 11/08 1548 24 hour I O ending at 0700: 11/09 0700 11/08 1900 Intake Total 1540.00 1750.00 Output Total 50 Balance 1490.00 1750.00 Intake, IV 1000.00 950.00 Intake, Oral 540 800 Number Voids 3 5 Output, Stool 50 PATIENT WEIGHT: Weight (lb): 121 Weight (oz): Weight (kg): 54.825546 General appearance: alert, awake, oriented Cardiovascular: regular rate rhythm Respiratory: no distress GI: soft, non-tender Results Results: no new labs, labs reviewed, vital signs reviewed, vital signs stable, CT results reviewed Discharge Instructions PCP PCP: PCP: Ashley Rodriguez MD Discharge Instructions Additional Discharge Routines: PCP Follow-Up at 0831 RPT #:[id number] END OF REPORT [facility] 2023-11-09 10:32:00 [facility] Gynecology Progress Note REPORT#:[id number] REPORT STATUS: Signed REPORT INITIALIZATION DATE:11/09/23 TIME: 103 PATIENT: MARIA DEL CARMEN RUIZ UNIT #: [id number] ROOM/BED: [address] : 85 AGE: 38 SEX: F [...] moves all, no calf tenderness, no edema Neuro/ENERGY CROP FARMER: alert, oriented X 3, normal speech Results [...] (Auto) (14.5 - 29.7 %) 31.3 H [place] % (Auto) (3.6 - 10.2 %) 8.5 Eos % (Auto) (0.0 - 3.0 %) 4.2 H Baso % (Auto) (0.1 - 0.9 %) 0.8 Neut # (Auto) (K/mm3) 4.7 Lymph # (Auto) (K/mm3) 2.7 [place] # (Auto) (K/mm3) 0.7 Eos # (Auto) [...] 2. Constipation: Miralax prn at 2220 RPT #:[id number] END OF REPORT [facility] 2023-11-08 09:52:00 [facility]) Gynecology Progress Note REPORT#:[id number] REPORT STATUS: Signed REPORT INITIALIZATION DATE:11/08/23 TIME: 951 PATIENT: MARIA DEL CARMEN RUIZ UNIT #: [id number] ROOM/BED: [address] : 85 AGE: 38 SEX: F [...] 11/07 0745 O2 Delivery Room air 11/07 744 Temp 97.9 11/07 744 Pulse 93 11/07 0745 Resp 18 11/07 0645 24 hour I O ending at 0700: 11/07 0700 1900 Intake Total Output Total Balance Patient 121 lb Weight Weight Stated/Reported Measurement Method PATIENT WEIGHT: Weight (lb): 121 Weight (oz): Weight (kg): 54.308249 Medications: Active Meds + DC'd Last 24 Hrs Clindamycin HCl/Dextrose (CLEOCIN 900MG IVPB - 50ML) 50 ML Q8H IV Gentamicin Sulfate/Sodium Chloride (GENTAMICIN 120MG/NS 100ML) 200 ML Q24H IV Ibuprofen (IBUPROFEN 800 MG TAB) 800 MG Q8H PO Oxycodone/Acetaminophen (PERCOCET TAB 5/325 MG) 1 TAB Q4H PRN PRN PO Lactated Ringer's (LACTATED RINGERS) 1,000 ML .[id number] IV Physical Exam General appearance: alert, awake, oriented, no acute distress, pleasant, sitting up in bed HEENT: moist mucosal membranes Respiratory: aerating well, symmetric expansion Abdomen: normal bowel sounds, non-tender, soft, no CVA tenderness, no distention , no guarding, no rebound Extremities: moves all, no calf tenderness, no edema Neuro/ENERGY CROP FARMER: alert, oriented X 3, normal speech Results [...] 1205: [Embedded Image Not Available] Laboratory Tests 11/075 Hematology WBC (6.5 - 12.3 K/mm3) 13.8 [...] % (Auto) (14.5 - 29.7 %) 22.2 [place] % (Auto) (3.6 - 10.2 %) 9.3 Eos % (Auto) (0.0 - 3.0 %) 2.0 Baso % (Auto) (0.1 - 0.9 %) 0.7 Neut # (Auto) (K/mm3) 9.1 Lymph # (Auto) (K/mm3) 3.1 [place] # (Auto) (K/mm3) 1.3 Eos # (Auto) (K/mm3) 0.28 Baso # (Auto) (K/mm3) 0.1 Results: labs reviewed, vital signs reviewed, [facility] and summarized above (started on clinda/gent at outlying facility) Diagnosis, Assessment Plan Free Text A [...] Plan discussed with: patient, nurse at [address] [facility] #:[id number] END OF REPORT [facility] 2023-11-08 06:44:00 [facility] ([facility]) CLIENT ACCOUNT REPRESENTATIVE Admission H P REPORT#:[id number] REPORT STATUS: Signed REPORT INITIALIZATION DATE:11/08/23 TIME: 643 PATIENT: MARIA DEL CARMEN RUIZ UNIT #: [id number] ROOM/BED: [address] : 85 AGE: 38 SEX: F ATTEND: Jennifer Salazar MD ADM AUTHOR: Jennifer Salazar MD REPT SERVICE DT/TIME: 11/08/23 0644 * ALL edits or amendments must be made on the electronic/computer document * History of Present Illness Chief complaint: Pelvic pain Free Text HPI Notes Free Text HPI Notes: 38 year old stauts post RA-TLH/BS/LSO/extensive lysis of pelvic adhesions (09/23) who was transferred from [facility] for pelvic abscesses. The patient's post operative [...] 11/07 299 AC Sodium Chloride IV 11/14 0259 (GENTAMICIN [...] Time Status Admin Lactated Ringer's 1,000 ML .[id number] 11/07 0245 AC 11/07 (LACTATED RINGERS) IV [...] Weight (lb): 121 Weight (oz): Weight (kg): 54.796650 General appearance: alert, awake, oriented Cardiovascular: regular rate rhythm Abdomen/GI: soft, non-tender, no guarding, no rebound Diagnosis, Assessment Plan Free Text DxA P Notes Free Text DxA P Notes: 38 year old status post RA-TLH/BS/LSO/extensive lysis of adhesions with suspected pelvic abscesses/cellulitis -Repeat CT scan -Consider IR drainage if indicated -Gent/Clinda started for antibiotic coverage. at 0651 RPT #:[id number] END OF REPORT [facility] 2023-11-08 00:28:31 Report to [facility] ER OFF Alice Hook RN [facility] 2023-11-07 23:58:34 Patient transferring to [facility] for diagnosis of postop infection Patient agrees to transfer/admit plan and verbalized understanding of plan of care, family aware of plan Patient awake alert, oriented, resp reg unlabored, skin w/d PIV patent, no s/s infiltration noted, No adverse reaction to medications given while in ED. Report to Olrichi at [facility] ER OFF [facility] 2023-11-07 23:11:10 Report given to BLAYNE Hook KA Dickson RN [facility] 2023-11-07 17:01:00 Pt states she is having abd pain; she had a hyst on 09/23/2023. States she saw of ob today and was told the abd pain was not related to the hyst. ER OFF [facility] 2023-11-07 16:47:00 Images from the original note were not included. EMERGENCY DEPARTMENT ENCOUNTER [facility] Patient Name: Maria Del Carmen Ruiz Date of : 1985 38 year old Exam Room:NY2/NY2 Primary Care Physician: PATIENT DOES NOT HAVE A PCP Pre- Hospital Patient Escorted by: Self [9] Mode of Arrival: Personal means [1] EMS Treatment Prior to ED Arrival: WEASAND TRIMMER treatment: None ED Events Date/Time Event User [...] 03/11/2017 Surgeon: José Miguel Rene MD; Location: [facility] Allergies Allergies Allergen Reactions Levaquin [Levofloxacin] Nausea [...] 0.01 - 0.07 10*3/uL COMP. METABOLIC PANEL (53858) - Abnormal NA 138 135 - 145 [...] CONTRAST CBC WITH DIFF COMP. METABOLIC PANEL (10597) LIPASE URINALYSIS BLOOD CULTURE SCREEN BLOOD CULTURE [...] gentamicin. The patient request to go to [facility]. She was accepted by Dr. Titus [...] on file Jocelyn Torrez Jr., MD Clinical Conditioner Tumbler [facility] Emergency Department [employer] is used frequently and may produce errors. Promptly contact for obvious discrepancies. Jocelyn Torrez MD 11/07/232245 Jocelyn Torrez MD 11/07/239 [facility] 2023-10-23 09:10:00 [facility] ([facility]) Hospitalist Discharge Summary REPORT#:[id number] REPORT STATUS: Signed REPORT INITIALIZATION DATE:10/23/23 TIME:909 PATIENT: MARIA DEL CARMEN RUIZ UNIT #: [id number] ROOM/BED: [place] [address] : 85 AGE: 38 SEX: F ATTEND: [...] hysterectomy 09/23/2022 complicated by infection x 2 -OPERATING SYSTEM DESIGNER Dr. Rodriguez has been consulted -Continue IV [...] radial, R dorsalis pedis, L dorsalis pedis. Neuro/ENERGY CROP FARMER: alert, oriented X 3, CNII-XII intact Skin: dry, intact, normal color, normal temperature, no rash Psychiatry: normal affect, normal mood Discharge Instructions PCP Discharge to: Home/Self Care Additional Discharge Routines: PCP Follow-Up, Grants Specialist Follow-Up Diet: Resume Home Diet/Feeds Discharge management: greater than 30 mins Follow-up Appointments PCP follow-up: PCP: Ashley Rodriguez MD PCP follow up timeframe: In 1-2 weeks at 2059 [facility] #: [id number] END OF REPORT [facility] 2023-10-22 17:53:00 [id number] [facility] [address] [place] [address] PATIENT NAME: MARIA DEL CARMEN RUIZ ADMIT DATE: 10/22/23 ACCOUNT NO: [id number] ROOM NO: [facility] AGE: 38 REPORT TYPE: CONSULTATION SEX: [...] Dictated: 10/22/2023 17:53:50 Date Transcribed: 10/22/2023 20:48:38 DUNIA/EMELIA/LALITA Receipt ID: [id number] Authenticated by Ashley Rodriguez MD On 12/20/2023 05:28:08 PM at 0528 PATIENT NAME: MARIA DEL CARMEN RUIZ [facility] 2023-10-22 14:21:00 [facility] Hospitalist Progress Note REPORT#:[id number] REPORT STATUS: Signed REPORT INITIALIZATION DATE:10/22/23 TIME:1420 PATIENT: MARIA DEL CARMEN RUIZ UNIT #: [id number] ROOM/BED: [address] : 85 AGE: 38 SEX: F [...] days ago. Patient was seen by her cotton inspector today and was sent over for further evaluation for concerns of possible pelvic abscess. Patient has been on antibiotics by her cotton inspector. CT A/P with no abnormal finding. Patient [...] 0428 98.4 84 16 115/83 94.1 99 10/22 [...] radial, R dorsalis pedis, L dorsalis pedis. Neuro/ENERGY CROP FARMER: alert, oriented X 3, CNII-XII intact Skin: [...] (Auto) (20.5 - 51.1 %) 33.7 34.0 [place] % (Auto) (1.7 - 9.3 %) 10.1 H 9.4 H Eos % (Auto) (0.0 - 6.0 %) 5.2 3.1 Baso % (Auto) (0.0 - 2.0 %) 0.8 0.8 Neut # (Auto) (1.8 - 7.6 K/mm3) 4.3 4.8 Lymph # (Auto) (0.6 - 3.2 K/mm3) 2.9 3.1 [place] # (Auto) (0.3 - 1.1 K/mm3) 0.9 [...] - 7.0 pH UNITS) 6.0 Ur Specific [place] (1.005 - 1.030 SG) <=1.005 Urine Protein [...] hysterectomy 09/23/2022 complicated by infection x 2 -OPERATING SYSTEM DESIGNER Dr. Rodriguez has been consulted -Continue IV Zosyn antibiotic for empirical coverage -Pain management with as needed morphine -Further management per Dr. Rodriguez DVT prophylaxis: SCDs GI prophylaxis: PEPCID Disposition Anticipated: Home with family support. Time Spent on Patient Care, Coordination and Counselin min. Code Status: Full code. at 1423 RPT #: [id number] END OF REPORT [facility] 2023-10-21 21:20:00 [facility] ([facility]) Hospitalist History Physical REPORT#:[id number] REPORT STATUS: Signed REPORT INITIALIZATION DATE:10/21/23 TIME:2119 PATIENT: MARIA DEL CARMEN RUIZ UNIT #: [id number] ROOM/BED: [place] [address] : 85 AGE: 38 SEX: F ATTEND: [...] days ago. Patient was seen by her cotton inspector today and was sent over for further evaluation for concerns of possible pelvic abscess. Patient has been on antibiotics by her cotton inspector. CT A/P with no abnormal finding. Patient [...] Sodium Chloride (0.9% Sodium Chloride) 1,000 ML .[id number] IV Tramadol HCl (ULTRAM) 50 MG Q6H [...] radial, R dorsalis pedis, L dorsalis pedis. Neuro/ENERGY CROP FARMER: alert, oriented X 3, CNII-XII intact Skin: dry, intact, normal color, normal temperature, no rash Psychiatry: normal affect, normal mood Results Findings/Data: Laboratory Tests 10/21 1731 Chemistry Sodium (134 - [...] % (Auto) (20.5 - 51.1 %) 34.0 [place] % (Auto) (1.7 - 9.3 %) 9.4 H Eos % (Auto) (0.0 - 6.0 %) 3.1 Baso % (Auto) (0.0 - 2.0 %) 0.8 Neut # (Auto) (1.8 - 7.6 K/mm3) 4.8 Lymph # (Auto) (0.6 - 3.2 K/mm3) 3.1 [place] # (Auto) (0.3 - 1.1 K/mm3) 0.9 [...] - 7.0 pH UNITS) 6.0 Ur Specific [place] (1.005 - 1.030 SG) <=1.005 Urine Protein [...] with vaginal discharge - possible pelvic infection -OPERATING SYSTEM DESIGNER Dr. Rodriguez has been consulted -Continue IV [...] Attestation Agree w/findings plan: Appreciate note from BEARING MAKER Agree with the history and physical findings Lab works noted Imaging noted as well Findings were discussed with the PETERSON and Staff at 1231 at 1301 RPT #: [id number] END OF REPORT [facility] 2023-10-21 17:54:00 [facility] ([facility]) EMERGENCY PROVIDER REPORT REPORT#:[id number] REPORT STATUS: Signed DATE:10/21/23 TIME:1753 PATIENT: MARIA DEL CARMEN RUIZ UNIT #: [id number] ROOM[address]BED: [address] : 85 AGE: 38 SEX: F PCP PHYS: Ashley Rodriguez MD SERVICE AUTHOR: Joe Torres BEARING MAKER * ALL edits or amendments must be made on the electronic/computer document * Joe Torres 10/21/231753: HPI-Abd Pain F 40 and Over Free Text HPI Notes Free Text HPI Notes 38-year-old female presents to the emergency department with complaints of lower abdominal pain. Patient was seen by her cotton inspector today and was sent over for further evaluation for concerns of possible pelvic abscess. Patient has been on antibiotics by her cotton inspector. Patient also reports vaginal discharge. General Confirmed [...] Considerations Independ review imaging Results Laboratory Tests 10/21/231730: [Embedded Image Not Available] Laboratory Tests: 10/21 [...] % (Auto) (20.5 - 51.1 %) 34.0 [place] % (Auto) (1.7 - 9.3 %) 9.4 H Eos % (Auto) (0.0 - 6.0 %) 3.1 Baso % (Auto) (0.0 - 2.0 %) 0.8 Neut # (Auto) (1.8 - 7.6 K/mm3) 4.8 Lymph # (Auto) (0.6 - 3.2 K/mm3) 3.1 [place] # (Auto) (0.3 - 1.1 K/mm3) 0.9 [...] - 7.0 pH UNITS) 6.0 Ur Specific [place] (1.005 - 1.030 SG) <=1.005 Urine Protein (NEG mg/dL) NEGATIVE Urine Glucose (UA) (NEG mg/dL) NEGATIVE Urine Ketones (NEG mg/dL) NEGATIVE Urine Blood (NEG mg/DL) TRACE H Urine Nitrite (NEG SCREEN) NEGATIVE Urine Bilirubin (NEG mg/dL) NEGATIVE Urine Urobilinogen (<2.0 mg/dL) 0.2 Ur Leukocyte Esterase (NEGATIVE Leuk/mcL) NEGATIVE Microbiology: Date/Time Procedure - Status Source Growth 10/21 1741 Blood Culture - COMP BLOOD 10/21 173 Blood Culture - COMP BLOOD Recent Impressions: CAT SCAN - CT ABD PELVIS W/CONT 10/21 1835 Report Impression - Status: SIGNED Entered: 10/21/2023 1907 IMPRESSION: No acute abdominal or pelvic abnormality. Impression By: Marie Hudson M.D. Lab Imaging Statement Laboratory radiographic studies reviewed and considered in the medical decision-making. Re-Evaluation MDM )( Re-Evaluation/Progress #1 )( Re-Eval Status Improved Plan Post Re-Eval Plan admit ED Course Patient Course Stable Notes Reviewed Specialist/consult note Consultation Consultation Referral/Consult Name Ashley Rodriguez MD Grants Specialist Called OPERATING SYSTEM DESIGNER Grants Specialist Discussed with erp consultant, Will see patient Requested Call Date [...] Hospitalize Hosp Physician Name Mack Pack MD Hosp [...] over this patient's care. Wei Hyman 10/21/23 4825: Past Medical History - Adult Home Medications [...] ONE 10/21 1807 DC 10/21 IV 1833 Patient Discharge Departure [...] care. at 0027 at 0813 RPT #: [id number] END OF REPORT [facility] 2023-09-23 19:46:00 [id number] [facility] [address] [place] [address] PATIENT NAME: MARIA DEL CARMEN RUIZ ADMIT DATE: 09/23/23 ACCOUNT NO: [id number] ROOM NO: AGE: 38 REPORT TYPE: OPERATIVE [...] pelvic cavity, cystoscopy. SURGEON: Ashley Rodriguez MD ETL INFORMATICA ARCHITECT: Joe Pettit. ANESTHESIA: General endotracheal. FINDINGS: Anterior [...] grasped with single tooth tenaculum, dilated to 16-Norwegian and 3.5 cm cup uterine manipulator was [...] was performed with a 30-degree lens, a 17-Norwegian sheath and normal saline. Excellent jets of [...] Date Transcribed: 09/23/2023 22:13:34 DUNIA/EMELIA/DALIA/NICOLE Receipt ID: [id number] Authenticated by Ashley Rodriguez MD On 10/21/2023 05:24:23 PM at 0524 PATIENT NAME: MARIA DEL CARMEN RUIZ [facility] 2023-09-23 18:56:00 [facility] ([facility] Brief Op Note REPORT#:[id number] REPORT STATUS: Signed REPORT INITIALIZATION DATE:09/23/23 TIME:1855 PATIENT: MARIA DEL CARMEN RUIZ UNIT #: [id number] ROOM/BED: : 85 AGE: 37 SEX: F [...] excision, endometriosis excision, cystoscopy Primary Surgeon: michael Color Print Inspector(s): joe pettit Anesthesia: general anesthesia Findings: left [...] Needle count: correct at 1914 RPT #: [id number] END OF REPORT [facility]
== END 2024-04-26 01:47 | disposition home or self-care (01) ==
LOC: ER 20:28
DX: R10.9 Unspecified abdominal pain (principal); Z98.890 Other specified postprocedural states
CPT/HCPCS: 85025; 81001; 36415; 83690; 80053; 74176; 96372; 99284; J3010; J2270

== ENCOUNTER 2024-08-31 23:29 | Emergency (ER) | payer BC ==
--- OUTSIDE RECORDS SUMMARY | 2024-08-31 23:34 | XMS REPORT | Continuity of Care Document ---
Author Name Unknown Address [address] [facility]. [address] [place] [address] [facility] Address [address] [facility] [address] [place] [address] Care Team Providers Care Rope Cutter Name Role Phone MANSOOR STEVENSON Primary Care Physician Unavailab ÁNGEL Alfaro Attending Clinician Unavailable ÁNGEL HAQUE Attending Clinician Unavailable Jordana Quevedo Attending Clinician UnavailTomy Baumann Attending Clinician Brooks Butler Attending Clinician Unavailable TRUE FELICIANO Attending Clinician Unavailable True Feliciano MD Attending Clinician [phone] [email or web address] Attending Clinician UnavailAshley Henriquez Attending Clinician UnavailJennifer Latham Attending Clinician Unavailable JOCELYN TORREZ Attending Clinician Unavailable Jocelyn Torrez MD Attending Clinician [phone] Mack Pack Attending Clinician Unavailable MOY SAVAGE Attending Clinician UnavailMOY Garcia Attending Clinician UnavailGAYLE Su Attending Clinician Unavailable Gayle Davis Attending Clinician [phone] Doctor Unassigned, [place] Attending Clinician U ÁNGEL Moss Admitting Clinician Unavailable Ashley Rodriguez Admitting Clinician UnavailTomy Escobar Admitting Clinician TRUE Alfaro Admitting Clinician Unavailable [email or web address] Admitting Clinician UnavailJennifer Latham Admitting Clinician Unavailable JOCELYN TORREZ Admitting Clinician Unavailable Mack Pack Admitting Clinician Unavailable Payers Payer Name Policy Type Policy Number Effective Date Expirati on Date Source [place] [id number] 2008 00:00:00 [place] [id number] 2019 00:00:00 [facility] [id number] 2022 00:00:00 2023 00:00:00 Problems Condition Name Condition Details Condition Category Status Onset Date Resolution Date Last Treatment Date Treating Clinician Comments Source Type 2 diabetes mellitus without complicati on Type 2 Diabetes Mellitus without Complicati on Problem Active 2023-09 00:00: 00 [facility] Constipati on Constipati on Problem Active 2023-09 00:00: 00 [facility] 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 Active 2023-09 00:00: 00 [facility] Midline cystocele Midline Cystocele Problem Active 2023-09 00:00: 00 [facility] 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 Problem Active 2023-09 00:00: 00 [facility] Vaginal enterocele Vaginal Enterocele Problem Active 2023-09 00:00: 00 [facility] Dyspareuni a Dyspareuni a Problem Active 2023-09 00:00: 00 [facility] Female stress incontinen ce Female Stress Incontinen ce Problem Active 2023-09 00:00: 00 [facility] Atrophy of vagina Atrophy of Vagina Problem Active 2023-09 00:00: 00 [facility] Increased frequency of urination Increased Frequency of Urination Problem Active 2023-09 00:00: 00 [facility] Nocturia Nocturia Problem Active 2023-09 00:00: 00 [facility] Deep pain on intercours e Deep Pain on Intercours e Problem Active 430 00:00: 00 [facility] Menopausal symptom Menopausal Symptom Problem Active 430 00:00: 00 [facility] Vomiting Vomiting Problem Active 4-09 00:00: 00 [...] s Problem Active 2022-09 2-11 00:00: 00 [facility] Cyst of left ovary Cyst of Left Ovary Problem Active 2022-09 2-11 00:00: 00 [facility] Cyst of ovary Cyst of Ovary Problem Active 2022-09 0-10 00:00: 00 [facility] Acute postoperat carina abdominal pain Acute postoperat carina abdominal pain Disease Active 0 7-03 00:00: 00 [facility] Migraines Migraines Disease Active 10-30 00:00: 00 [facility] Tobacco use disorder Tobacco use disorder Disease Active 10-30 00:00: 00 [facility] Normal delivery Normal delivery Disease Resolve d 615 00:00: 00 2013-10-30 00:00:00 2013-10-30 14:55:10 [facility] Chorioamni onitis Chorioamni onitis Disease Resolve d 02-21 00:00: 00 2013-10-30 00:00:00 2013-10-30 14:55:12 [facility] with poor obstetric history with poor obstetric history Disease Resolve d 615 00:00: 00 2013-10-30 00:00:00 2013-10-30 14:55:14 [facility] PROM (premature rupture of membranes) PROM (premature rupture of membranes) Disease Resolve d 614 00:00: 00 2013-10-30 00:00:00 2013-10-30 14:55:08 [facility] Allergies, Adverse Reactions, Alerts Allergy Name Allergy Type Status Severity Reaction(s) Onset Date Inactive Date Treating Clinician Comments Source Penicill ins DA Active U ITCHING 02-23 00:00: 00 [facility] levoflox acin DA Active U ANAPYLACTIC REACTION 02-23 00:00: 00 [facility] Penicill ins DA Active SV HIVES 02-11 00:00: 00 [facility] codeine DA Active MO VOMITING 02-11 00:00: 00 [facility] acetamin ophen DA Active MO VOMITING 2024-0 6-05 00:00: 00 [facility] tramadol DA Active MO VOMITING 0 6-05 00:00: 00 [facility] levoflox acin DA Active MO VOMITING 0 605 00:00: 00 [facility] LEVOFLOX ACIN DRUG INGREDI Active N/V 0 2- 00:00: 00 [facility] Levoflox acin Propensi ty to adverse reaction s Active Nausea and/or Vomiting 0 2- 00:00: 00 [facility] Penicill ins DA Active [place] RSAH 0 2-12 00:00: 00 [facility] levoflox acin DA Active U THROAT SWELLING 0 2-12 00:00: 00 [facility] Penicill ins DA Active SV HIVES 0 1-12 00:00: 00 [facility] codeine DA Active MO VOMITING 0 1-12 00:00: 00 [facility] acetamin ophen DA Active MO VOMITING 0 1-12 00:00: 00 [facility] tramadol DA Active MO VOMITING 2023-0 1-12 00:00: 00 [facility] levoflox acin DA Active MO VOMITING 0 1-12 00:00: 00 [facility] Penicill ins Propensi ty to adverse reaction s Active Itching 0 2-21 00:00: 00 [facility] PENICILL INS Drug Class Active ITCHING 0 2-21 00:00: 00 [facility] Penicill ins Propensi ty to adverse reaction s Active Itching 0 2-21 00:00: 00 [facility] No Known Drug Intolera nces DA Active U 0 - 00:00: 00 [facility] [place] No Known Contrast Allergie s DA Active U 0 - 00:00: 00 [facility] [place] No Known Drug Allergie s DA Active U 0 02-06 00:00: 00 [facility] [place] No Known Other Allergie s DA Active U 02-06 00:00: 00 [facility] [place] LICORICE DA Active U 02-06 00:00: 00 [facility] [place] RASPBERR IES DA Active U 02-06 00:00: 00 [facility] [place] Levoflox acin Allergy to substanc e Active Vomiting [facility] PENICILL INS Allergy to substanc e Active [facility] Tramadol Allergy to substanc e Active Nausea [facility] Social History Social Habit Start Date Stop Date Quantity Comments Source Exposure to SARS-CoV-2 (event) Not sure [facility] History of tobacco use Cigarette Smoker [facility] beverage intake 2024-04-10 00:00:00 2024-04-10 00:00:00 Current drinker of alcohol (finding) [facility] History of Social function 2024-04-10 00:00:00 2024-04-10 00:00:00 [facility] Alcohol intake 2020-06-06 00:00:00 2020-06-06 00:00:00 Current drinker of alcohol (finding) [facility] Alcohol Comment 2013-10-30 00:00:00 2013-10-30 00:00:[address] [facility] Cigarettes smoked current (pack per day) - Reported 2013-10-30 00:00:00 2013-10-30 00:00:00 [facility] Cigarette pack-years 2013-10-30 00:00:00 2013-10-30 00:00:00 [facility] Tobacco use and exposure 2013-10-30 00:00:00 2013-10-30 00:00:00 Smokeless tobacco non-user [facility] Sex assigned at 1985 00:00:00 1985 00:00:00 [facility] Smoking Status Start Date Stop Date Source Former Smoker [facility] Smokes tobacco daily 2013-10-30 00:00:00 [facility] Medications Ordered Medication Name Filled Medication Name Start Date Stop Date Current Medication? Ordering Clinician Indication Dosage Frequency Signature (SIG) Comments Components Source ketorolac (TORADOL) injection 15 mg 04-10 16:30: 00 04-10 16:02 :00 No 15mg 15 mg, Slow IV Push, ONCE, 1 dose, On Sat04/10/24 at 1130, Routine [facility] iopamidol (ISOVUE 370-500 mL) injection 75 mL 04-10 15:54: 00 04-10 15:55 :00 No [id number] 75mL 75 mL, Intravenou s, ONCE, 1 dose, On Sat04/10/24 at 1115, Routine [facility] morpHINE (4 mg/mL) injection 4 mg 01-28 04:15: 00 01-28 04:20 :00 No 4mg 4 mg, Slow IV Push, ONCE, 1 dose, On Sat01/28/24 at 2315, STAT [facility] iopamidol (ISOVUE 370-500 mL) injection 100 mL 01-28 03:30: 00 01-28 03:30 :00 No [id number] 100mL 100 mL, Intravenou s, ONCE, 1 dose, On Sat01/28/24 at 2230, [facility] ondansetron (ZOFRAN (PF)) injection 4 mg 01-28 02:15: 00 01-28 02:23 :00 No 4mg 4 mg, Slow IV Push, ONCE, 1 dose, On Sat01/28/24 at 2115, [facility] morpHINE (4 mg/mL) injection 4 mg 01-28 02:15: 00 01-28 02:23 :00 No 4mg 4 mg, Slow IV Push, ONCE, 1 dose, On Sat01/28/24 at 2115, STAT [facility] ondansetron (ZOFRAN (PF)) injection 4 mg 11-07 05:15: 00 11-07 05:06 :00 No 4mg 4 mg, Slow IV Push, ONCE, 1 dose, On Sat11/07/23 at 2315, [facility] FENTanyl PF (SUBLIMAZE (PF)) injection 75 mcg 11-07 05:00: 00 11-07 04:57 :00 No 75ug 75 mcg, Slow IV Push, ONCE, 1 dose, On Adore 11/07/23 at 2300, STAT [facility] NaCl 0.9% (NS) bolus infusion 1,000 mL 11-07 03:45: 00 11-07 04:45 :00 No 1000mL at 999 mL/hr, 1,000 mL, IV Infusion, ONCE, 1 dose, On Adore 11/07/23 at 2145, STAT [facility] morpHINE (4 mg/mL) injection 4 mg 11-07 03:30: 00 11-07 03:27 :00 No 4mg 4 mg, Slow IV Push, ONCE, 1 dose, On Adore 11/07/23 at 2130, STAT [facility] clindamycin in 5 % dextrose [...] br>Restric kathrine use approved by: ED PROVIDER [facility] gentamicin 150 mg in NaCl 0.9% (NS) 11-07 02:45: 00 11-07 03:49 :00 No 150mg 150 mg, IV Piggyback, ONCE, 1 dose, On Adore 11/07/23 at 2045, STAT
Re ason for Anti-Infec tive: Documented Infection< br>Documen kathrine Infection Site: Pelvic
Duration of Therapy: Other (see Comments) [facility] iopamidol (ISOVUE 370-500 mL) injection 100 mL 11-07 02:00: 00 11-07 02:00 :00 No [id number] 100mL 100 mL, Intravenou s, ONCE, 1 dose, On Adore 11/07/23 at 2000, Routine [facility] morpHINE (4 mg/mL) injection 4 mg 11-07 01:45: 00 11-07 01:35 :00 No 4mg 4 mg, Slow IV Push, ONCE, 1 dose, On Adore 11/07/23 at 1945, STAT [facility] NaCl 0.9% (NS) bolus infusion 1,000 mL 11-07 00:15: 00 11-07 02:16 :00 No 1000mL at 999 mL/hr, 1,000 mL, IV Infusion, ONCE, 1 dose, On Adore 11/07/23 at 1815, [facility] FENTanyl PF (SUBLIMAZE (PF)) injection 75 mcg 11-07 00:15: 00 23:52 :00 No 75ug 75 mcg, Slow IV Push, ONCE, 1 dose, On Adore 11/07/23 at 1815, STAT [facility] ondansetron (ZOFRAN (PF)) injection 4 mg 11-07 00:15: 00 23:52 :00 No 4mg 4 mg, Slow IV Push, ONCE, 1 dose, On Adore 11/07/23 at 1815, BILL [facility] estradiol 0.05 mg/24 hr semiweekly transdermal patch APPLY ONE (1) PATCH TO THE SKIN TWICE A WEEK . estradiol 0.05 mg/24 hr semiweekly transdermal patch APPLY ONE (1) PATCH TO THE SKIN TWICE A WEEK . No 1patch( es) Q3.5D estradiol 0.05 mg/24 hr semiweekly transderma l patch APPLY ONE (1) PATCH TO THE SKIN TWICE A WEEK . [facility] Probiotic Probiotic No Probiotic [facility] acetaminoph en 300 mg-codeine 30 mg tablet TAKE ONE (1) TABLET(S) BY MOUTH EVERY THREE HOURS NEEDED FOR PAIN. acetaminoph en 300 mg-codeine 30 mg tablet TAKE ONE (1) TABLET(S) BY MOUTH EVERY THREE HOURS NEEDED FOR PAIN. No acetaminop hen 300 mg-codeine 30 mg tablet TAKE ONE (1) TABLET(S) BY MOUTH EVERY THREE HOURS NEEDED FOR PAIN. [facility] amoxicillin 875 mg-potassiu m clavulanate 125 mg tablet TAKE ONE (1) TABLET(S) BY MOUTH TWICE A DAY. amoxicillin 875 mg-potassiu m clavulanate 125 mg tablet TAKE ONE (1) TABLET(S) BY MOUTH TWICE A DAY. No amoxicilli n 875 mg-potassi um clavulanat e 125 mg tablet TAKE ONE (1) TABLET(S) BY MOUTH TWICE A DAY. [facility] azithromyci n 250 mg tablet TK 2 TS PO ON DAY 1, THEN TK 1 T PO D FOR 4 DAYS azithromyci n 250 mg tablet TK 2 TS PO ON DAY 1, THEN TK 1 T PO D FOR 4 DAYS No azithromyc in 250 mg tablet TK 2 TS PO ON DAY 1, THEN TK 1 T PO D FOR 4 DAYS [facility] dexamethaso ne 4 mg tablet TAKE 2 TABLET BY MOUTH AT NIGHT OF PROCEDURE dexamethaso ne 4 mg tablet TAKE 2 TABLET BY MOUTH AT NIGHT OF PROCEDURE No dexamethas one 4 mg tablet TAKE 2 TABLET BY MOUTH AT NIGHT OF PROCEDURE [facility] Helen 0.1 mg/24 hr transdermal patch APPLY ONE (1) PATCH TO SKIN TWO TIMES A WEEK. Helen 0.1 mg/24 hr transdermal patch APPLY ONE (1) PATCH TO SKIN TWO TIMES A WEEK. No Helen 0.1 mg/24 hr transderma l patch APPLY ONE (1) PATCH TO SKIN TWO TIMES A WEEK. [facility] estradiol 0.01% (0.1 mg/gram) vaginal cream Insert 0.5 g twice a week by vaginal route at bedtime for 30 days. estradiol 0.01% (0.1 mg/gram) vaginal cream Insert 0.5 g twice a week by vaginal route at bedtime for 30 days. No .5g Q3.5D estradiol 0.01% (0.1 mg/gram) vaginal cream Insert 0.5 g twice a week by vaginal route at bedtime for 30 days. [facility] estradiol 0.075 mg/24 hr semiweekly transdermal patch APPLY ONE (1) PATCH(ES) TO THE SKIN TWO TIMES A WEEK. estradiol 0.075 mg/24 hr semiweekly transdermal patch APPLY ONE (1) PATCH(ES) TO THE SKIN TWO TIMES A WEEK. No estradiol 0.075 mg/24 hr semiweekly transderma l patch APPLY ONE (1) PATCH(ES) TO THE SKIN TWO TIMES A WEEK. [facility] estradiol 1.25 mg/1.25 gram (0.1 %) transdermal gel packet APPLY ONE (1) PACKET(S) TO SKIN ONCE A DAY. estradiol 1.25 mg/1.25 gram (0.1 %) transdermal gel packet APPLY ONE (1) PACKET(S) TO SKIN ONCE A DAY. No estradiol 1.25 mg/1.25 gram (0.1 %) transderma l gel packet APPLY ONE (1) PACKET(S) TO SKIN ONCE A DAY. [facility] fluconazole 150 mg tablet TAKE ONE (1) TABLET(S) BY MOUTH A SINGLE DOSE. REPEAT SECOND DOSE IN 48 HOURS. fluconazole 150 mg tablet TAKE ONE (1) TABLET(S) BY MOUTH A SINGLE DOSE. REPEAT SECOND DOSE IN 48 HOURS. No fluconazol e 150 mg tablet TAKE ONE (1) TABLET(S) BY MOUTH A SINGLE DOSE. REPEAT SECOND DOSE IN 48 HOURS. [facility] hydrocodone 5 mg-acetamin ophen 325 mg tablet TAKE 1 TABLET BY MOUTH EVERY 8 HOURS NEEDED FOR PAIN hydrocodone 5 mg-acetamin ophen 325 mg tablet TAKE 1 TABLET BY MOUTH EVERY 8 HOURS NEEDED FOR PAIN No hydrocodon e 5 mg-acetami nophen 325 mg tablet TAKE 1 TABLET BY MOUTH EVERY 8 HOURS NEEDED FOR PAIN [facility] ibuprofen 600 mg tablet TAKE ONE (1) TABLET(S) BY MOUTH FOUR TIMES A DAY NEEDED FOR PAIN. ibuprofen 600 mg tablet TAKE ONE (1) TABLET(S) BY MOUTH FOUR TIMES A DAY NEEDED FOR PAIN. No ibuprofen 600 mg tablet TAKE ONE (1) TABLET(S) BY MOUTH FOUR TIMES A DAY NEEDED FOR PAIN. [facility] ibuprofen 800 mg tablet ibuprofen 800 mg tablet No ibuprofen 800 mg tablet [facility] ketorolac 10 mg tablet TAKE ONE (1) TABLET(S) BY MOUTH EVERY EIGHT HOURS NEEDED FOR PAIN. ketorolac 10 mg tablet TAKE ONE (1) TABLET(S) BY MOUTH EVERY EIGHT HOURS NEEDED FOR PAIN. No ketorolac 10 mg tablet TAKE ONE (1) TABLET(S) BY MOUTH EVERY EIGHT HOURS NEEDED FOR PAIN. [facility] metronidazo le 0.75 % (37.5 mg/5 gram) vaginal gel INSERT ONE (1) APPLICATORF UL(S) IN VAGINA AT BEDTIME FOR 10 DAYS. metronidazo le 0.75 % (37.5 mg/5 gram) vaginal gel INSERT ONE (1) APPLICATORF UL(S) IN VAGINA AT BEDTIME FOR 10 DAYS. No metronidaz ole 0.75 % (37.5 mg/5 gram) vaginal gel INSERT ONE (1) APPLICATOR FUL(S) IN VAGINA AT BEDTIME FOR 10 DAYS. [facility] metronidazo le 500 mg tablet TAKE ONE (1) TABLET(S) BY MOUTH TWICE A DAY. metronidazo le 500 mg tablet TAKE ONE (1) TABLET(S) BY MOUTH TWICE A DAY. No metronidaz ole 500 mg tablet TAKE ONE (1) TABLET(S) BY MOUTH TWICE A DAY. [facility] oxycodone 10 mg tablet TAKE ONE (1) TABLET(S) BY MOUTH EVERY FOUR HOURS NEEDED FOR PAIN. oxycodone 10 mg tablet TAKE ONE (1) TABLET(S) BY MOUTH EVERY FOUR HOURS NEEDED FOR PAIN. No oxycodone 10 mg tablet TAKE ONE (1) TABLET(S) BY MOUTH EVERY FOUR HOURS NEEDED FOR PAIN. [facility] tramadol 50 mg tablet TAKE ONE (1) TABLET(S) BY MOUTH EVERY SIX HOURS NEEDED FOR PAIN. tramadol 50 mg tablet TAKE ONE (1) TABLET(S) BY MOUTH EVERY SIX HOURS NEEDED FOR PAIN. No tramadol 50 mg tablet TAKE ONE (1) TABLET(S) BY MOUTH EVERY SIX HOURS NEEDED FOR PAIN. [facility] Immunizations Ordered Immunization Name Filled Immunization Name Date Status Comments Source Td 2012-10-10 00:00:[address] [facility] Td 2012-10-10 00:00:[address] [facility] Td 2012-10-10 00:00:[address] [facility] Td 2012-10-10 00:00:[address] [facility] TD, NOS Unknown Completed [facility] TD, NOS Unknown Completed [facility] TD, NOS Unknown Completed [facility] Vital Signs Vital Name Observation Time Observation Value Comments S ource BP Systolic 2024-08-05 00:00:00 125 mm[Hg] [facility] BMI (Body Mass Index) 2024-08-05 00:00:00 22.1 kg/m2 [facility] Body Weight 2024-08-05 00:00:00 117 [lb_av] [facility] Height 2024-08-05 00:00:00 61 [in_i] [facility] BP Diastolic 2024-08-05 00:00:00 99 mm[Hg] [facility] Systolic blood pressure 2024-04-10 18:15:00 121 mm[Hg] [facility] Diastolic blood pressure 2024-04-10 18:15:00 82 mm[Hg] [facility] Heart rate 2024-04-10 18:15:00 85 /min [facility] Body temperature 2024-04-10 18:15:[address] [facility] Respiratory rate 2024-04-10 18:15:00 16 /min [facility] Oxygen saturation in Arterial blood by Pulse oximetry 2024-04-10 18:15:00 100 /min [facility] Body height 2024-04-10 14:15:00 154.9 cm [facility] Body weight 2024-04-10 14:15:00 52.164 kg [facility] BMI 2024-04-10 14:15:00 21.73 kg/m2 [facility] Heart rate 2024-01-29 05:14:00 83 /min [facility] Body temperature 2024-01-29 05:14:[address] [facility] Respiratory rate 2024-01-29 05:14:00 16 /min [facility] Oxygen saturation in Arterial blood by Pulse oximetry 2024-01-29 05:14:00 100 /min [facility] Systolic blood pressure 2024-01-29 05:00:00 120 mm[Hg] [facility] Diastolic blood pressure 2024-01-29 05:00:00 93 mm[Hg] [facility] Body height 2024-01-29 00:35:00 152.4 cm [facility] Body weight 2024-01-29 00:35:00 54.432 kg [facility] BMI 2024-01-29 00:35:00 23.44 kg/m2 [facility] Body Weight 2024-01-07 00:00:00 117 [lb_av] [facility] [...] Medical Heart rate 2023-11-08 06:15:00 85 /min [facility] Respiratory rate 2023-11-08 06:15:00 12 /min [facility] Oxygen saturation in Arterial blood by Pulse oximetry 2023-11-08 06:15:00 99 /min [facility] Systolic blood pressure 2023-11-08 06:00:00 109 mm[Hg] [facility] Diastolic blood pressure 2023-11-08 06:00:00 89 mm[Hg] [facility] Body temperature 2023-11-08 05:45:[address] [facility] Body height 2023-11-07 23:01:00 154.9 cm [facility] Body weight 2023-11-07 23:01:00 54.885 kg [facility] BMI 2023-11-07 23:01:00 22.86 kg/m2 [facility] BP Systolic 2023-11-07 00:00:00 110 [...] Systolic blood pressure 2020-06-06 20:49:00 120 mm[Hg] [facility] Diastolic blood pressure 2020-06-06 20:49:00 85 mm[Hg] [facility] Heart rate 2020-06-06 20:49:00 86 /min [facility] Procedures Procedure Date / Time Performed Performing Clinician Source CT ABDOMEN PELVIS W CONTRAST 2024-04-10 16:00:[address] [facility] LIPASE 2024-04-10 15:20:00 Ángel Haque [facility] COMP. METABOLIC PANEL ([id number]) 2024-04-10 15:20:[address] [facility] CBC WITH DIFF 2024-04-10 15:20:00 Ángel Haque [facility] URINALYSIS 2024-04-10 15:20:00 Ángel Haque [facility] US OVARY TORSION 2024-01-29 03:56:[address] [facility] CT ABDOMEN PELVIS W CONTRAST 2024-01-29 02:33:[address] [facility] LIPASE 2024-01-29 01:42:00 [facility] COMP. METABOLIC PANEL ([id number]) 2024-01-29 01:42:[address] [facility] CBC WITH DIFF 2024-01-29 01:42:00 True Feliciano [facility] URINALYSIS 2024-01-29 01:42:00 True Feliciano [facility] CT, abdomen + pelvis, w/wo contrast 2023-12-17 00:00:00 [facility] CT, abdomen + pelvis, w/wo contrast 2023-11-29 00:00:00 [facility] CT, abdomen + pelvis, w/wo contrast 2023-11-14 00:00:00 [facility] LACTIC ACID WHOLE BLOOD 2023-11-08 03:08:[address] [facility] CT ABDOMEN PELVIS W CONTRAST 2023-11-08 01:01:[address] [facility] LIPASE 2023-11-07 23:47:00 Jocelyn Torrez [facility] COMP. METABOLIC PANEL ([id number]) 2023-11-07 23:47:[address] [facility] CBC WITH DIFF 2023-11-07 23:47:00 Jocelyn Torrez [facility] URINALYSIS 2023-11-07 23:47:00 [facility] CONSENT/REFUSAL FOR DIAGNOSIS AND TREATMENT 2023-11-07 22:49:54 Doctor Unassigned, [place] [facility] Hysterectomy 2023-09-23 00:00:00 Guadalupe Warren [facility]ical Hysteroscopy Biopsy 2023-08-09 00:00:00 [facility] XR HAND <3 VW RIGHT 2020-06-06 20:55:[address] [facility] ASSIGNMENT OF BENEFITS 2020-06-06 20:30:19 Docto r Unassigned, [place] [facility] DME/SUPPLY JUSTIFICATION 2020-05-29 05:01:00 Doc tor Unassigned, [place] [facility] Hernia Repair 2014-09-09 00:00:00 [facility] Cholecystectomy (Gallbladder) 2006-09-09 00:00:00 [facility] Encounters Start Date/Time End Date/Time Encounter Type Admission Type Attending [facility] Care Department Encounter ID Source 2024-08-12 00:00:00 2024-08-12 00:00:00 HERBERTH Wood: [address], [address], [place] [address] , Ph. [phone] [facility]_SWHAWPRC _Fannin Office* [id number] [facility] 2024-08-05 00:00:00 2024-08-05 00:00:00 Cherie Jin MD: [address], [address], [place] [address] , Ph. [phone] [facility]AWPR[facility] _Fannin Office* [id number] [facility] 2024-04-10 09:16:00 2024-04-10 13:20:00 Emergency X ÁNGEL HAQUE [facility]UA [facility] [id number] [facility] 2024-04-10 09:16:00 2024-04-10 13:20:00 Emergency Ángel Haque [facility] 1.2.840.114 350.1.13.10 4.2.7.2.686 [id number] [facility] 2024-03-06 20:21:00 2024-03-06 23:20:00 Emergency EM QuevedoJordana elizabeth [facility] [id number] [facility] 2024-03-02 08:43:00 2024-03-03 10:53:00 Inpatient Tomy Martino [facility] MEDI.01 [id number] [facility] 2024-03-02 08:43:00 2024-03-03 10:53:00 Inpatient Tmoy Martino [facility].01 [id number] [facility] 2024-02-12 19:18:00 2024-02-12 23:54:00 Emergency Brooks Leonard [facility] [id number] [facility] 2024-01-28 19:38:00 2024-01-29 00:16:00 Emergency X TRUE FELICIANO [facility] ERT [id number] [facility] 2024-01-28 19:38:00 2024-01-29 00:16:00 Emergency True Feliciano S [facility] 1.2.840.114 350.1.13.10 4.2.7.2.686 [id number] [facility] 2024-01-07 00:00:00 2024-01-07 00:00:00 Ashley Rodriguez MD: [address], [address], [place] [address] , Ph. [facility] - GC_GCBZW_Kaylynn Mesa* [id number] [facility] 2023-12-31 00:00:00 2023-12-31 00:00:00 HERBERTH Galo: [address], [address], [place] [address] , Ph. [facility] - GC_GCBZW_Kaylynn Mesa* [id number] [facility] 2023-12-17 00:00:00 2023-12-17 00:00:00 Ashley Rodriguez MD: [address], [address], [place] [address] , Ph. [facility] - GC_GCBZW_Kaylynn Mesa* [id number] [facility] 2023-12-13 00:00:00 2023-12-13 00:00:00 CHELSY Myrick: [address], [address], [place] [address] , Ph. [facility] - GC_GCBZW_Kaylynn palomares [place]* [id number] [facility] 2023-11-29 00:00:00 2023-11-29 00:00:00 Ashley Rodriguez MD: [address], [address], [place] [phone] , Ph. GC_GCBZW_Ka diyala_S [facility] - GC_GCBZW_Kaylynn palomares [place]* [id number] [facility] 2023-11-27 00:00:00 2023-11-27 00:00:00 Outpatient GC_GCBZW_Ka diyala_S [facility] [id number] [facility] 2023-11-20 00:00:00 2023-11-20 00:00:00 Ashley Rodriguez MD: [address], [address], [place] [address] , Ph. GC_GCBZW_Ka diyala_S [facility] - GC_GCBZW_Kaylynn palomares [place]* [id number] [facility] 2023-11-20 00:00:00 2023-11-20 00:00:00 Ashley Rodriguez MD: [address], [place] [address] , Ph. [facility] - GC_GCBZW_Kaylynn palomares [place]* [id number] [facility] 2023-11-19 11:00:00 2023-11-19 11:00:00 Outpatient Ashley Blevins [facility] [id number] [address] [place] [address] 2023-11-18 00:00:00 2023-11-18 00:00:00 Outpatient GC_GCBZW_Ka diyala_S [facility] [id number] [facility] 2023-11-13 00:00:00 2023-11-13 00:00:00 Ashley Rodriguez MD: [address], [address], [place] [phone] , Ph. GC_GCBZW_Ka diyala_S [facility] - GC_GCBZW_Kaylynn palomares Moshe* [id number] [facility] 2023-11-13 00:00:00 2023-11-13 00:00:00 Ashley Rodriguez MD: [address], [address], [place] [phone] , Ph. [facility] - GC_GCBZW_Kaylynn palomares [place]* [id number] [facility] 2023-11-11 00:00:00 2023-11-11 00:00:00 Outpatient GC_GCBZW_Ka diyala_S [facility] [id number] [facility] 2023-11-08 03:21:00 2023-11-10 10:07:00 Inpatient Jennifer Cruz [facility] [id number] [facility] 2023-11-07 17:03:00 2023-11-08 00:37:00 Emergency X JOCELYN TORREZ [facility] ERT [id number] [facility] 2023-11-07 17:03:00 2023-11-08 00:37:00 Emergency Jocelyn Torrez [facility] 1.2.840.114 350.1.13.10 4.2.7.2.686 [id number] [facility] 2023-11-07 00:00:00 2023-11-07 00:00:00 HERBERTH Galo: [address], [address], [place] [address] , Ph. [facility] - GC_GCBZW_Kaylynn marielle [place]* [id number] [facility] 2023-11-07 00:00:00 2023-11-07 00:00:00 HERBERTH Galo: [address], [place] [phone] , Ph. [facility] - GC_GCBZW_Kaylynn marielle Moshe* [id number] [facility] 2023-11-04 00:00:00 2023-11-04 00:00:00 Outpatient GC_GCBZW_Ka diyala_S PRIV PRIV [id number] [facility] 2023-10-30 00:00:00 2023-10-30 00:00:00 Ashley Rodriguez MD: [address], [place] [address] , Ph. [facility] - GC_GCBZW_Kaylynn palomares Moshe* [id number] [facility] 2023-10-22 14:33:00 2023-10-23 10:25:00 Inpatient EM Mack Pack HCAPM MEDI.01 [id number] [facility] [place] 2023-10-22 14:33:00 2023-10-23 10:25:00 Inpatient EM Mack Pack HCAPM MEDI.01 [id number] [facility] [place] 2023-10-21 22:17:00 2023-10-21 22:17:00 Outpatient Mack Pack HCACL LABO [id number] [facility] 2023-10-21 22:17:00 2023-10-21 22:17:00 Outpatient Mack Pack HCACL LABO [id number] [facility] 2023-10-21 00:00:00 2023-10-21 00:00:00 Outpatient GC_GCBZW_Ka diyala_S [facility] [id number] [facility] 2023-10-21 00:00:00 2023-10-21 00:00:00 CHELSY Myrick: [address], [place] [address] , Ph. [facility] - GC_GCBZW_Kaylynn palomares Moshe* [id number] [facility] 2023-09-30 00:00:00 2023-09-30 00:00:00 Outpatient GC_GCBZW_Ka diyala_S PRIV PRIV [id number] [facility] 2023-09-30 00:00:00 2023-09-30 00:00:00 Mirta English, METER SUPERVISOR: [address], [place] [address] , Ph. [facility] - GC_GCBZW_La [facility]* [id number] [facility] 2023-09-23 12:27:00 2023-09-23 12:27:00 Outpatient Ashley Blevins [facility] [id number] [facility] [place] 2023-09-20 00:00:00 2023-09-20 00:00:00 Outpatient GC_GCBZW_Ka diyala_S PRIV PRIV [id number] [facility] 2023-09-17 00:00:00 2023-09-17 00:00:00 Outpatient GC_GCBZW_Ka diyala_S PRIV PRIV [id number] [facility] 2023-09-13 00:00:00 2023-09-13 00:00:00 Outpatient GC_GCBZW_Ka diyala_S PRIV PRIV [id number] [facility] 2023-08-27 00:00:00 2023-08-27 00:00:00 Outpatient GC_GCBZW_Ka diyala_S PRIV PRIV [id number] [facility] 2023-08-09 00:00:00 2023-08-09 00:00:00 Outpatient GC_GCBZW_Ka diyala_S PRIV PRIV [id number] [facility] 2023-08-09 00:00:00 2023-08-09 00:00:00 Outpatient GC_GCBZW_Ka diyala_S PRIV PRIV [id number] [facility] 2023-06-19 00:00:00 2023-06-19 00:00:00 Outpatient GC_GCBZW_Ka diyala_S PRIV PRIV [id number] [facility] 2023-06-19 00:00:00 2023-06-19 00:00:00 Outpatient GC_GCBZW_Ka diyala_S PRIV PRIV [id number] [facility] 2023-06-19 00:00:00 2023-06-19 00:00:00 Outpatient GC_GCBZW_Ka diyala_S PRIV PRIV [id number] [facility] 2023-06-19 00:00:00 2023-06-19 00:00:00 Outpatient GC_GCBZW_Ka diyala_S PRIV PRIV [id number] [facility] 2023-06-18 00:00:00 2023-06-18 00:00:00 Outpatient GC_GCBZW_Ka diyala_S PRIV PRIV [id number] [facility] 2023-06-04 00:00:00 2023-06-04 00:00:00 Outpatient GC_GCBZW_Ka diyala_S PRIV PRIV [id number] [facility] 2022-08-23 13:30:00 2022-08-23 13:30:00 Outpatient R MOY SAVAGE CHERYAL [facility] [id number] [facility] 2022-08-08 15:30:00 2022-08-08 15:30:00 Outpatient R MOY SAVAGE CHERYAL [facility] [id number] [facility] 2020-06-13 16:15:00 2020-06-13 16:15:00 Outpatient Farhat LOPEZ GAYLE [facility] [id number] [facility] 2020-06-06 15:55:12 2020-06-06 23:59:00 Hospital Encounter Gayle Lopez [facility] Health [facility] 1.2.840.114 350.1.13.10 4.2.7.2.686 [id number] [facility] 2020-06-06 16:00:00 2020-06-06 16:00:00 Outpatient R JOHN GAYLE [facility] [id number] [facility] 2020-06-06 15:34:00 2020-06-06 15:49:00 Office Visit Gayle Lopez S [facility] Health Surgical Specialti laure [place] 1.2.840.114 350.1.13.10 4.2.7.2.686 [id number] [facility] 2020-06-06 00:00:00 2020-06-06 00:00:00 Orders Only Doctor Unassigned, [place] [facility] 1.2.840.114 350.1.13.10 4.2.7.2.686 [id number] [facility] 2020-05-29 00:00:00 2020-05-29 00:00:00 Orders Only Doctor Unassigned, [place] [facility] 1.2840.114 350.1.13.10 4.2.7.2.686 [id number] [facility] Results Test Description Test Time Test Comments Results Result Co mments Source [facility]. METABOLIC PANEL (83214)2024-04-10 17:04:20* Test Item Value Reference Range Interpretation Comme nts NA (test code = 0532649450) 135 mmol/L 135-145 K (test code = 1497066453) 4.0 3.5-5.0 CL (test code = 9662452635) 104 mmol/L 98-108 CO2 TOTAL (test code = 6175853267) 19 mmol/L 23-31 L AGAP (test code = 0993072046) 12 2-16 BUN (test code = 5080624039) 19 mg/dL 7-23 GLUCOSE (test code = 6226925364) 83 mg/dL 70-110 CREATININE (test code = 2160-0) 0.77 mg/dL 0.50-1.04 TOTAL BILI (test code = 0669136223) 0.8 mg/dL 0.1-1.1 CALCIUM (test code = 6363735294) 9.1 mg/dL 8.6-10.6 T PROTEIN (test code = 7077868850) 7.6 g/dL 6.3-8.2 ALBUMIN (test code = 6447134314) 4.7 g/dL 3.5-5.0 ALK PHOS (test code = 8712694274) 67 U/L 34-122 ALTv (test code = 1742-6) 19 U/L 5-35 AST(SGOT) (test code = 1338562829) 33 U/L 13-40 eGFR (test code = 42591-4) 101.4 mL/min/1.73m2 CKD-EPI eGFR (2020). Assuming creatinine has been stable day-to-day for at least three months, the eGFR indicates Category G1 (>= 90 mL/min/1.73 m2) Lab Interpretation (test code = 08667-3) Abnormal [facility] ABDOMEN PELVIS W [id number] 16:59:37ORDERING PHYSICIAN: ÁNGEL HAQUE. HISTORY: Abdominal pain, acute, nonlocalized ? TECHNIQUE: [...] normal. Osseous Structures: No suspicious lesions are identified.[facility] CenterCBC WITH [id number] 16:21:29* Test Item Value Reference Range Interpretation [...] 34.3 g/dL 31.6-35.1 RDW-SD (test code = 01537-8) 41.5 fL 39.0-49.9 RDW-CV (test code = 788-0) 12.8 % 12.0-15.5 PLT (test code = 777-3) 380 166-358 H MPV (test code = 68774-6) 10.3 fL 9.5-12.9 NRBC/100 WBC (test code = 3774533708) 0.0 0.0-10.0 NRBC x10^3 (test code = 9345024871) See_Comment [Automated messa ge] The system which generated this result transmitted reference range: 10*3/?L. The reference range was not used to interpret this result as normal/abnormal. GRAN MAT (NEUT) % (test code = 770-8) 71.8 % IMM GRAN % (test code = 6925169632) 0.50 % LYMPH % (test code = 736-9) 21.9 % MONO % (test code = 5905-5) 4.8 % EOS % (test code = 713-8) 0.5 % BASO % (test code = 706-2) 0.5 % GRAN MAT x10^3(ANC) (test code = 5500640872) 9.51 10*3/uL 1.88-7.09 H IMM GRAN x10^3 (test code = 6854004059) 0.06 10*3/uL 0.00-0.06 LYMPH x10^3 (test code = 731-0) 2.90 10*3/uL 1.32-3.29 MONO x10^3 (test code = 742-7) 0.63 10*3/uL 0.33-0.92 EOS x10^3 (test code = 711-2) 0.06 10*3/uL 0.03-0.39 BASO x10^3 (test code = 704-7) 0.07 10*3/uL 0.01-0.07 Lab Interpretation (test code = 56043-3) Abnormal [facility] RFLX MICR CULT IF [id number] 21:58:00* Test Item Value Reference Range Interpretation [...] Indication for culture: Dysuria/FrequencySpecimen Description: CLEAN CATCH [id number] 14:41:00* Test Item Value Reference Range Interpretation Comme nts SURGICAL (test code = SR) R UN DATE: 03/03/24 [facility] PAGE 1 RUN TIME: 1442 Specimen Inquiry RUN USER: INTERFACE P ATIENT: SARAJOSE LOC: RON U #: [id number] AGE/SX: 38/F ROOM: [facility] RE03/02/24REG DR: Tomy Le : 85 BED: A DIS: 03/03/24 STATUS: DIS Gita TLOC: SPEC #: [id number] RECD: 03/02/24-1516 STATUS: RAKESH LUNDBERG #: [id number] SANTY: 03/02/24-13[address] [facility] [address]: Tomy Le MD ENTERED: 03/02/24-1520 SP TYPE: SURGICAL OTHR DR: ORDERED: ANATOMIC SPEC/2, SPEC TRACK, 67925/2 PROCEDURES: 59872 (03/03/24-509) TISSUES: A. OVARY, RIGHT B. VAGINAL MUCOSA [...] cassette B1.(CAA; 03/02/2024) Technical component performed at [facility]'s [address] [address] Immunohistochemical stains and Special Stains are performed at [facility], [address], [place] [address] Unless gross only, the diagnosis is based upon microscopic examination. CONTINUED ON NEXT PAGE R UN DATE: 03/03/24 [facility] PAGE 2 RUN TIME: 1442 Specimen Inquiry RUN USER: INTERFACE S PEC #: [id number] PATIENT: ZANA RUIZA #[id number] (Continued) GROSS DESCRIPTION (Continued) Immunohistochemistry: This test [...] Stephani Adame 03/03/24 1441 END OF REPORT [id number] 06:35:00* Test Item Value Reference Range Interpretation Comme nts GLUBED (test code = GLUBED) 69 mg/dL 65-110 N CBC W/AUTO [id number] 06:02:00* Test Item Value Reference Range Interpretation [...] # (test code = BA#) 0.1 K/mm3 [id number] 15:22:00* Test Item Value Reference Range Interpretation Comme nts GLUBED (test code = GLUBED) 101 mg/dL 65-110 N [id number] 10:31:00* Test Item Value Reference Range Interpretation Comme nts GLUBED (test code = GLUBED) 75 mg/dL 65-110 N BASIC METABOLIC [id number] 13:48:00* Test Item Value Reference Range Interpretation [...] if thepatient's age is <18 years. LIVER [id number] 13:48:00* Test Item Value Reference Range Interpretation [...] range as of January 2024 CBC W/AUTO [id number] 13:14:00* Test Item Value Reference Range Interpretation [...] BA#) 0.1 K/mm3 - CT ABD PELVIS W/[id number] 22:17:00 [facility] : 1985 Sex: F Patient Name: JOSE RUIZ Unit No: [id number] EXAMS: CPT CODE: [id number] CT ABD PELVIS W/CONT 12368TW abdomen pelvis with contrast, 02/12/2024. COMPARISON: 11/19/2023. Clinical: Abscess. Comment: Transaxial plus sagittal/coronal reformatted images were obtained following IV contrast administration. The lung bases are free of active disease. The liver, spleen, adrenal glands, pancreas, kidneys, aorta and IVC appear within normal limits. The gallbladder is absent. There is no biliary duct dilatation or significant retroperitoneal lymphadenopathy. There are postsurgical changes status post ventral herniorrhaphy. There is no gastric distention, small bowel obstruction or right lower quadrant inflammatory changes. The appendix appears within normal limits. The colon is nondistended. There are no intrinsic lesions involving the urinary bladder. The uterus is absent. No pelvic abscess is detected. The regional skeleton is intact. CT imaging was performed using iterative reconstruction techniques and/or automated exposure control to reduce radiation dose. Patient has received 3 CTs/cardiac n uclear medicine studies in the past 12 months. IMPRESSION: No abscess detected. at 8108 Reported and signed by: Dewey Martinez MD [facility] NAME: JOSE RUIZ Radiology Department PHYS: [id number] Brooks Gray MD [address] : 1985 AGE: 38 SEX: F [place], [place] [address] LOC: FMosesERS PHONE #: [phone] EXAM DATE: 02/12/2024 STATUS: REG ER FAX #: [phone] RAD NO: Page 1 Signed Report1 Patient Name: JOSE RUIZ Unit No: [id number] EXAMS: CPT CODE: [id number] CT ABD PELVIS W/CONT 48307 (Continued) CC: Ashley Rodriguez MD; Brooks Duran MD Technologist: Amna Cesar, RT CTDI: DLP: Trnscrbd D/ (2216) JuanJS28 [facility] NAME: JOSE RUIZ Radiology Department PHYS: Brooks Frost MD [address] : 1985 AGE: 38 SEX: F [place] [address] LOC: DereckERS PHONE #: [phone] EXAM DATE: 02/12/2024 STATUS: REG ER FAX #: [phone] RAD NO: Page 2 Signed Report 1 Patient Name: JOSE RUIZ Unit No: [id number] EXAMS: CPT CODE: [id number] CT ABD PELVIS W/CONT 30902 (Continued) Orig Print D/T: S: 02/12/2024 (2219) [facility] NAME: JOSE RUIZ Radiology Department PHYS: Brooks Frost MD [address] : 1985 AGE: 38 SEX: F [place] [address] LOC: Jaziel.ERS PHONE #: [phone] EXAM DATE: 02/12/2024 STATUS: REG ER FAX #: [phone] RAD NO: Page 3 Signed Report 1 COMPREHENSIVE METABOLIC [id number] 21:32:00* Test Item Value Reference Range Interpretation [...] ew normal range as of January 2024 [id number] 21:32:00* Test Item Value Reference Range Interpretation Comme nts LIPASE (test code = LIP) 52 units/L 12-53 N Please note new normal range as of January 2024 UA RFLX MICR CULT IF [id number] 21:07:00* Test Item Value Reference Range Interpretation [...] SEEN Indication for culture: Suprapubic PainSpecimen Description: RANDOMCBC W/AUTO [id number] 20:59:00* Test Item Value Reference Range Interpretation [...] code = BA#) 0.1 K/mm3 US OVARY [id number] 04:44:22Ordering physician: TRUE FELICIANO INDICATION: Pelvic pain, [...] Doppler waveforms. The patient is status post leftnephrectomy.[facility] ABDOMEN PELVIS W [id number] 03:43:12Ordering physician: TRUE FELICIANO Indication: Acute abdominal [...] the abdomen and pelvis demonstrate no osseousdestructive lesion.[facility] CenterCB with Feconxqypedp3100-84-70 02:51:42* Test Item Value Reference Range Interpretation [...] 33.7 g/dL 31.6-35.1 RDW-SD (test code = 09873-2) 46.0 fL 39.0-49.9 RDW-CV (test code = 788-0) 13.3 % 12.0-15.5 PLT (test code = 777-3) 314 166-358 MPV (test code = 33244-6) 11.4 fL 9.5-12.9 NRBC/100 WBC (test code = 0604618628) 0.0 0.0-10.0 NRBC x10^3 (test code = 5766659174) See_Comment [Automated Gridiuma ge] The system which generated this result transmitted reference range: 10*3/?L. The reference range was not used to interpret this result as normal/abnormal. GRAN MAT (NEUT) % (test code = 770-8) 50.7 % IMM GRAN % (test code = 1627211499) 0.20 % LYMPH % (test code = 736-9) 39.2 % MONO % (test code = 5905-5) 7.6 % EOS % (test code = 713-8) 1.7 % BASO % (test code = 706-2) 0.6 % GRAN MAT x10^3(ANC) (test code = 9685252068) 5.46 10*3/uL 1.88-7.09 IMM GRAN x10^3 (test code = 5029456711) 0.00-0.06 LYMPH x10^3 (test code = 731-0) 4.22 10*3/uL 1.32-3.29 H MONO x10^3 (test code = 742-7) 0.82 10*3/uL 0.33-0.92 EOS x10^3 (test code = 711-2) 0.18 10*3/uL 0.03-0.39 BASO x10^3 (test code = 704-7) 0.07 10*3/uL 0.01-0.07 Lab Interpretation (test code = 16849-2) Abnormal [facility] CenterComplete Metabolic [id number] 02:19:38* Test Item Value Reference Range Interpretation Comme nts NA (test code = 2345807274) 139 mmol/L 135-145 K (test code = 0130837884) 4.1 mmol/L 3.5-5.0 CL (test code = 0430220010) 104 mmol/L 98-108 CO2 TOTAL (test code = 0107673450) 27 mmol/L 23-31 AGAP (test code = 6613994302) 8 2-16 BUN (test code = 9011870257) 18 mg/dL 7-23 GLUCOSE (test code = 7848437235) 82 mg/dL 70-110 CREATININE (test code = 2160-0) 0.83 mg/dL 0.50-1.04 TOTAL BILI (test code = 1036923291) 0.4 mg/dL 0.1-1.1 CALCIUM (test code = 0445950611) 9.4 mg/dL 8.6-10.6 T PROTEIN (test code = 8219189624) 7.5 g/dL 6.3-8.2 ALBUMIN (test code = 4754691654) 4.6 g/dL 3.5-5.0 ALK PHOS (test code = 7519361909) 71 U/L 34-122 ALTv (test code = 1742-6) 32 U/L 5-35 AST(SGOT) (test code = 4161192610) 29 U/L 13-40 eGFR (test code = 66745-4) 92.7 mL/min/1.73m2 CKD-EPI eGFR (20 21). Assuming creatinine has been stable day-to-day for at least three months, the eGFR indicates Category G1 (>= 90 mL/min/1.73 m2) [facility] CenterLipase, Cdkiu3387-47-94 02:18:57* Test Item Value Reference Range Interpretation Comme nts LIPASE (test code = 2941850426) 245 U/L 0-220 H Lab Interpretation (test cod e = 35576-4) Abnormal [facility]- CT ABD PELVIS W WO [id number] 14:37:00 [facility] 1985 Sex: F Name: JOSE RUIZ [facility] : 1985 Age/S: 38 / F [id number] [place] Unit #: [id number] Loc: [place] [address] Phys: Ashley Rodriguez MD Acct: [id number] Dis Date: Status: REG CLI PHONE #: [phone] Exam Date: 11/19/2023 1200 FAX #: Reason: PELVIC AND PERINEAL PAIN EXAMS: CPT: [id number] CT ABD PELVIS W WO CONT [id number] Location Code: S17 EXAMINATION: - CT ABD [...] pelvis November 08, 2023. FINDINGS: Lower Chest: Visualizedlung bases are clear. Heart is normal in size. No pericardial or pleural effusion. Liver: The liveris normal in size and contour. No focal [...] pelvis. PAGE 1 Signed Report (CONTINUED) Name: JOSE RUIZland : 1985 Age/S: 38 / F [id number] [facility] [place] Unit #: [id number] Loc: [place] [address] Phys: Ashley Rodriguez MD Acct: [id number] Dis Date: Status: REG CLI PHONE #: [phone] Exam Date: 11/19/2023 1200 FAX #: Reason: PELVIC AND PERINEAL PAIN EXAMS: CPT: [id number] CT ABDPELVIS W WO CONT 69588 (Continued) No evidence of drainable fluid collection. Lymph nodes: There are no pathologically enlarged abdominopelvic lymph nodes. Retroperitoneum: No mass or hemorrhage. Normal caliber abdominal aorta. Abdominal wall: Postoperative changes are present along the anterior a bdominal wall. Bones: No evidence for acute osseous abnormality. IMPRESSION: Moderate interval decrease in the amount of fluid and thickening within the pelvis. No evidence of drainable fluid collection. No other acute intra- abdominal process. at 1437 Reported and signed by: Juan Miguel Bush M.D. CC: Ashley Rodriguez MD Technologist:Yarely Shaikh CTDI: DLP: Trnscb Date/Time: 11/19/2023 (9813) [email or web address] Orig Print D/T: S: 11/19/2023 (0369) PAGE 2 Signed ReportCBC W/AUTO [id number] 05:52:00* Test Item Value Reference Range Interpretation [...] code = PLTMR) NORMAL NORMAL CBC W/AUTO [id number] 12:25:00* Test Item Value Reference Range Interpretation [...] code = PLTMR) NORMAL NORMAL infectious disease [id number] 11:01:00* Test Item Value Reference Range Interpretation [...] code = hortensia krusei) 0 ppm 10.500-32.[address] [facility] ABD PELVIS W/[id number] 09:37:00 [facility] : 1985 Sex: F Patient Name: JOSE RUIZ Unit No: [id number] EXAMS: CPT CODE: [id number] CT ABD PELVIS W/CONT 48270JM ABDOMEN AND PELVIS WITH CONTRAST: INDICATIONS:Pelvic abscess [...] aneurysm. No suspicious bony lesion. IMPRESSION: [facility] NAME: JOSE MARTIN Radiology Department PHYS: Steffany Alvarenga [address] : 1985 AGE: 38 SEX: F [place], [place] [address] LOC: F.2600 A PHONE #: [phone] EXAM DATE: 11/08/2023 STATUS: ADM IN FAX #: [phone] RAD NO: Page 1 Signed Report 1 Patient Name: JOSE HANCOCK Unit No: [id number] EXAMS: CPT CODE: [id number] CT ABD PELVIS W/CONT 07543 (Continued) Status post hysterectomy. Some fluid strandings and mesenteric inflammations at the surgical site and at superior vaginal vault. No discrete walled off collection. at 0937 Reported and signed by: Barry Cook MD CC: Steffany Byrne MD; Ashley Rodriguez MD; Jennifer Salazar MD Technologist: Wei Ontiveros, RT, CT CTDI: 3.98 DLP: 193.93 Trnscrbd D/ (0937) t.SDR.VL4 [facility] NAME: JOSE RUIZ Radiology Department PHYS: LATESHA - Steffany Byrne [address] : 1985 AGE: 38 SEX: F [place] [address] LOC: F.2600 A PHONE #: [phone] EXAM DATE: 11/08/2023 STATUS: ADM IN FAX #: [phone] RAD NO: Page 2 Signed Report 1 Patient Name: JOSE RUIZ Unit No: [id number] EXAMS: CPT CODE: [id number] CT ABD PELVIS W/CONT 73163 (Continued) Orig Print D/T: S: 11/08/2023(0941) [facility] NAME: JOSE RUIZ Radiology Department PHYS: Steffany Loco [address] : 1985 AGE: 38 SEX: F [place] [address] LOC: F.2600 A PHONE #: [phone] EXAM DATE: 11/08/2023 STATUS: ADM IN FAX #: [phone] RAD NO: Page 3 Signed Report 1CT ABDOMEN PELVIS W [id number] 04:23:44EXAM: CT ABDOMEN/PELVIS WITH CONTRAST HISTORY: ?Abdominal [...] suspicious lytic or sclerotic bony lesions.[facility] CenterLact Acid Whole [id number] 03:17:00* Test Item Value Reference Range Interpretation Comme nts LACTIC ACID (test code = 2162461946) 1.22 mmol/L 0.50-2.20 Lab Interpretation (test cod e = 01836-6) Normal [facility] WITH [id number] 00:42:59* Test Item Value Reference Range Interpretation [...] 34.5 g/dL 31.6-35.1 RDW-SD (test code = 35381-8) 41.6 fL 39.0-49.9 RDW-CV (test code = 788-0) 12.8 % 12.0-15.5 PLT (test code = 777-3) 387 166-358 H MPV (test code = 90124-0) 10.1 fL 9.5-12.9 NRBC/100 WBC (test code = 3323005088) 0.0 0.0-10.0 NRBC x10^3 (test code = 3946179158) See_Comment [Automated message] The system which generated this result transmitted reference range: 10*3/?L. The reference range was not used to interpret this result as normal/abnormal. GRAN MAT (NEUT) % (test code = 770-8) 70.4 % IMM GRAN % (test code = 2048289087) 0.50 % LYMPH % (test code = 736-9) 19.8 % MONO % (test code = 5905-5) 8.1 % EOS % (test code = 713-8) 0.7 % BASO % (test code = 706-2) 0.5 % GRAN MAT x10^3(ANC) (test code = 8453791468) 13.44 10*3/uL 1.88-7.09 H IMM GRAN x10^3 (test code = 3849310380) 0.09 10*3/uL 0.00-0.06 H LYMPH x10^3 (test code = 731-0) 3.77 10*3/uL 1.32-3.29 H MONO x10^3 (test code = 742-7) 1.55 10*3/uL 0.33-0.92 H EOS x10^3 (test code = 711-2) 0.13 10*3/uL 0.03-0.39 BASO x10^3 (test code = 704-7) 0.10 10*3/uL 0.01-0.07 H Lab Interpretation (test code = 60662-2) Abnormal [facility] CenterCOMP. METABOLIC PANEL (38333)2023-11-08 00:26:19* Test Item Value Reference Range Interpretation Comme nts NA (test code = 1406212791) 138 mmol/L 135-145 K (test code = 7290000722) 3.3 mmol/L 3.5-5.0 L CL (test code = 7380177938) 109 mmol/L 98-108 H CO2 TOTAL (test code = 5749902013) 22 mmol/L 23-31 L AGAP (test code = 2668527291) 7 2-16 BUN (test code = 2619017170) 17 mg/dL 7-23 GLUCOSE (test code = 1967338116) 99 mg/dL 70-110 CREATININE (test code = 2160-0) 0.69 mg/dL 0.50-1.04 TOTAL BILI (test code = 9953459978) 0.5 mg/dL 0.1-1.1 CALCIUM (test code = 7979915586) 9.1 mg/dL 8.6-10.6 T PROTEIN (test code = 4762680000) 7.1 g/dL 6.3-8.2 ALBUMIN (test code = 5779216126) 4.1 g/dL 3.5-5.0 ALK PHOS (test code = 4214528431) 76 U/L 34-122 ALTv (test code = 1742-6) 19 U/L 5-35 AST(SGOT) (test code = 9015903704) 18 U/L 13-40 eGFR (test code = 28441-9) 114.1 mL/min/1.73m2 CKD-EPI eGFR (2020). Assuming creatinine has been stable day-to-day for at least three months, the eGFR indicates Category G1 (>= 90 mL/min/1.73 m2) Lab Interpretation (test code = 19529-0) Abnormal [facility] CenterLIPASE2024-03-01 00:25:58* Test Item Value Reference Range Interpretation Comme nts LIPASE (test code = 4065789913) 157 U/L 0-220 Lab Interpretation (test cod e = 55784-5) Normal [facility] CenterUrinalysis macro (dipstick) panel - Urine 2023-11-07 14:37:00* Test Item Value Reference Range Interpretation Comme nts Leukocytes (test code = Leukocytes) Negative Nitrite (test code = Nitrite) negative Urobilinogen (test code = Urobilinogen) Normal Protein (test code = Protein) Negative pH (test code = pH) 6.0 Blood (test code = Blood) 1+ Specific [place] (test code = Specific [place]) 1.015 Ketone (test code = Ketone) Negative Bilirubin (test code = Bilirubin) Negative Glucose (test code = Glucose) Negative Appearance (test code = Appearance) Slightly Cloudy Color (test code = Color) Dark Yellow [facility] CenterBAS[facility] METABOLIC [id number] 05:50:00* Test Item Value Reference Range Interpretation [...] CA) 8.3 MG/DL 8.5-10.1 L CBC W/AUTO [id number] 05:03:00* Test Item Value Reference Range Interpretation [...] NRBC#) 0.0 K/mm3 0.0-0.1 N COMPREHENSIVE METABOLIC [id number] 05:31:00* Test Item Value Reference Range Interpretation [...] code = ALKP) 60 Unit/L 45-117 N [id number] 05:31:00* Test Item Value Reference Range Interpretation Comme nts PHOSPHOROUS (test code = PHOS) 2.8 MG/DL 2.5-4.9 N [id number] 05:31:00* Test Item Value Reference Range Interpretation Comme nts MAGNESIUM (test code = MAG) 2.3 MG/DL 1.8-2.4 N PROTHROMBIN [id number] 05:21:00* Test Item Value Reference Range Interpretation [...] Infarction (to prevent recurrent infarct). THROMBOPLASTIN TIME [id number] 05:21:00* Test Item Value Reference Range Interpretation Comme nts THROMBOPLASTIN TIME PARTIAL (test code = PTT) 26.9 SECONDS 26-35 N [id number] 05:21:00* Test Item Value Reference Range Interpretation Comme nts FIBRINOGEN (test code = FIB) 297 mg/dL 185-453 N CBC W/AUTO [id number] 05:13:00* Test Item Value Reference Range Interpretation [...] = NRBC#) 0.0 K/mm3 0.0-0.1 N LACTIC [id number] 20:28:00* Test Item Value Reference Range Interpretation Comme nts LACTIC ACID (test code = LACT) 0.9 mmol/L 0.4-2.0 N - CT ABD PELVIS [id number] 19:03:00 [facility] 1985 Sex: F Name: JOSE RUIZ [facility] : 1985 Age/S: 38 / F [address] [facility] [place] Unit #: [id number] Loc: [place] [address] Phys: Marsha Torres NP Acct: [id number] Dis Date: 10/23/2023 Status: DIS IN PHONE #: [phone] Exam Date: 10/21/2023 4510 FAX #: Reason: pain EXAMS: CPT: [id number] CT ABD PELVIS W/CONT 45530 Location:H77 EXAM: CT ABDOMEN/PELVIS WITH CONTRAST DATE: [...] unremarkable. PAGE 1 Signed Report (CONTINUED) Name: JOSE RUIZ : 1985 Age/S: 38 / F [address] [place] Unit #: [id number] Loc: [place] [address] Phys: Marsha Torres NP Acct: [id number] Dis Date: 10/23/2023 Status: DIS IN PHONE #: [phone] Exam Date: 10/21/2023 1837 FAX #: Reason: pain EXAMS: CPT: [id number] CT ABD PELVIS W/CONT 96012 (Continued) No retroperitoneal, mesenteric or pelvic lymphadenopathy. No fluid collections or free fluid. No free air. The uterus is absent. No adnexal mass. The urinary bladder is decompressed limiting its evaluation.. No acute osseous lesions. Post surgical changes of an anterior abdominal wall repair. IMPRESSION: No acute abdominal or pelvic abnormality. at 1903 Reportedand signed by: Kendal Hudson M.D. CC: Marsha Torres NP; Ashley Rodriguez MD Technologist:Amadou Varela, RT(R) CTDI: DLP: Trnscb Date/Time: 10/21/2023 (1902) tRHIANNA Orig Print D/T: S: 10/21/2023 (1906) PAGE 2 Signed Report- CT ABD PELVIS W/[id number] 19:03:00 [facility] 1985 Sex: F Name: JOSE RUIZ [place] : 1985 Age/S: 38 / F [address] [place] Unit #: [id number] Loc: [place] [address] Phys: Marsha Torres [employer] Acct: [id number] Dis Date: Status: REG ER PHONE #: [phone] Exam Date: 10/21/2023 1835 FAX #: Reason: pain EXAMS: CPT: [id number] CT ABD PELVIS W/CONT 79014 Location:[facility] EXAM: CT ABDOMEN/PELVIS WITH CONTRAST DATE: [...] unremarkable. 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 No fluid collections or free fluid. No free air. The uterus is absent. No adnexal mass. The urinary bladder is decompressed limiting its evaluation.. No acute osseous lesions. Post surgical changes of ananterior abdominal wall repair. IMPRESSION: No acute abdominal or pelvic abnormality. at 1903 Reported and signed by: Kendal Barry M.D. CC: Marsha Torres NP; Ashley Rodriguez MD Technologist:Amadou Varela, (R) CTDI: DLP: Trnscb Date/Time: 10/21/2023 (1902) t.[email or web address].MOP Orig Print D/T: S: 10/21/2023 (1906) PAGE 2 Signed ReportUA RFLX MICR CULT IF [id number] 18:25:00* Test Item Value Reference Range Interpretation [...] srcSOURCE OF URINE: CLEAN CATCH BASIC METABOLIC [id number] 18:12:00* Test Item Value Reference Range Interpretation [...] CA) 9.1 MG/DL 8.5-10.1 N HEPATIC FUNCTION [id number] 18:12:00* Test Item Value Reference Range Interpretation [...] ALKP) 79 Unit/L 45-117 N CBC W/AUTO [id number] 17:49:00* Test Item Value Reference Range Interpretation [...] NRBC#) 0.0 K/mm3 0.0-0.1 N infectious disease [id number] 03:20:00Abnormal StatusPrivia MedicalSURGICAL 2023-09-26 16:31:00* Test Item Value Reference Range Interpretation Comme nts SURGICAL (test code = SR) RUN DATE: 09/26/23 [facility] PAGE 1 RUN TIME: 1631 Specimen Inquiry RUN USER: INTERFACE PATIENT: JOSE RUIZ LOC: WENDY U #: [id number] AGE/SX: 37/F ROOM: RE09/23/23MARIO DR: Ashley Rodriguez MD : 85 BED: DIS: STATUS: [facility] TLOC: SPEC #: [id number] RECD: 09/23/23 STATUS: RAKESH LUNDBERG #: [id number] SANTY: 09/23/23-[address]: Ashley Rodriguez MD ENTERED: 09/23/23 SP TYPE: SURGICAL OTHR DR: ORDERED: 04727, 01564, ANATOMIC SPEC, SPECIMEN TRACK PROCEDURES: 26331 (09/23/23) 19978 (09/26/23-1630) SPECIMEN TRACK (09/23/23) TISSUES: A. UTERINE [...] CONTINUED ON NEXT PAGE RUN DATE: 09/26/23 [facility] PAGE 2 RUN TIME: 1631 Specimen Inquiry RUN USER: INTERFACE SPEC #: [id number] PATIENT: JOSE RUIZ #[id number] (Continued) GROSS DESCRIPTION (Continued) B1 posterior cervixB2 anterior cervixB3-B4 posterior endomyometrium B5-B6 anterior endomyometriumB7 posterior reflection B8-B11 left ovarian cyst B12 left fallopian tube cut surface with entire bisected fimbriated end B13 right fallopian tube cut surface with entire bisected fimbriated end Technical tissue processing and slide preparation performed at [facility],[id number] , [place] [address] MICROSCOPIC DESCRIPTION A and B. Microscopic examination is performed and the findings are incorporated into thefinal diagnosis. Please see diagnosis for findings. Signed SIGNATURE ON FILE Yonathan Mattbibi 09/26/23 1631 END OF REPORT GLUCOSE BEDSIDE [id number] 13:09:00* Test Item Value Reference Range Interpretation Comme nts GLUCOSE BEDSIDE TESTING (anamaria t code = GLUBED) 85 mg/dL 70-110 N BASIC METABOLIC [id number] 12:19:00* Test Item Value Reference Range Interpretation [...] CA) 9.7 MG/DL 8.5-10.1 N CBC W/AUTO [id number] 12:06:00* Test Item Value Reference Range Interpretation [...] = NRBC#) 0.0 K/mm3 0.0-0.1 N URINALYSIS [id number] 12:00:00* Test Item Value Reference Range Interpretation [...] NEGATIVE Urine Specimen Type: Clean CatchUR HCG [id number] 12:00:00* Test Item Value Reference Range Interpretation Comme nts UR HCG QUAL (test code = HCGQLU) NEGATIVE NEGATIVE Urine Specimen Type: Clean CatchXR HAND <3 VW [id number] 21:43:26No sign of fracture or dislocation joint space is well-maintainedSt. [facility]
[2024-09-01] MEDS ORDERED: FENTANYL CITR 100 MCG/2 ML ONE ×2 (00:18→01:02)
--- NOTE | 2024-09-01 01:26 | EDPHYS ---
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 23:59 The patient presents with Rectal pain. Onset: The symptoms/episode began/occurred rn today. Severity of symptoms: At their worst the symptoms were moderate, in the emergency department the symptoms are unchanged. The patient has not experienced similar symptoms in the past. Patient reports had elective surgery earlier today for rectal prolapse. Patient reports very minimal bleeding but cannot handle the pain. Given hydrocodone and NSAID and wants something stronger. States morphine does not usually work for her. Is passing gas, reports hurts to use the bathroom or urinate. No fever or chills. No abdominal pain.. Historical: - Allergies: 09/01 00:43 PENICILLINS; br2 00:43 Levaquin; br2 00:43 Codeine; br2 - PMHx: 00:43 ADD/ADHD; br2 - PSHx: 00:43 Appendectomy; Cholecystectomy; hernia; Total abdominal hysterectomy; br2 - Immunization history:: Adult Immunizations not up to date. - Infectious Disease History:: Denies. - Family history:: not pertinent. - Social history:: Smoking status: Patient reports the use of cigarette tobacco products, VAPE. - Hospitalizations: : No recent hospitalization is reported. ROS: 08/31 23:59 Constitutional: Negative for fever, chills, and weight loss, Cardiovascular: Negative rn for chest pain, palpitations, and edema, Respiratory: Negative for shortness of breath, cough, wheezing, and pleuritic chest pain, Abdomen/GI: Negative for abdominal pain, nausea, vomiting, diarrhea, and constipation, : Positive for rectal and perineal pain Exam: 23:59 Constitutional: This is a well developed, well nourished patient who is awake, alert, rn appears uncomfortable, sitting on a pillow Cardiovascular: Regular rate and rhythm. No pulse deficits. Abdomen/GI: Soft, nontender Female : Normal external genitalia. Dried blood on pad but no active bleeding. Anus and perineum appear normal without erythema or significant swelling. Vital Signs: 09/01 00:41 BP 118 / 92; Pulse 90; Resp 18; Temp 98.2(O); Pulse Ox 99% on R/A; Weight 50.8 kg; br2 Height 5 ft. 1 in. ; Pain 10/10; 01:21 BP 122 / 90; Pulse 73; Resp 18; Pulse Ox 100% ; Pain 10/10; br2 00:41 Body Mass Index 21.16 (50.80 kg, 154.94 cm) br2 00:41 Pain Scale: Adult br2 01:21 Pain Scale: Adult br2 MDM: 08/31 23:36 Medical Screening Exam initiated rn 09/01 01:24 Differential diagnosis: Postsurgical pain, urinary retention. Data reviewed: vital rn signs, nurses notes, and as a result, I will discharge patient. Counseling: I had a detailed discussion with the patient and/or guardian regarding the historical points, exam findings, and any diagnostic results supporting the discharge/admit diagnosis, the need for outpatient follow up, to return to the emergency department if symptoms worsen or persist or if there are any questions or concerns that arise at home. Special discussion: I discussed with the patient/guardian in detail that at this point there is no indication for admission to the hospital. It is understood, however, that if the symptoms persist or worsen the patient needs to return immediately for re-evaluation. ED course: Patient reported difficulty urinating, bladder scanner showed only 102 mL of urine. Pain better controlled after second fentanyl. Will discharge with return precautions and follow-up with her surgeon.. 01:26 ED course: Patient already has prescription for hydrocodone and NSAIDs, will not add to rn the pain medication.. 08/31 23:59 Order name: IV Start; Complete Time: 00:15 rn 09/01 00:48 Order name: Bladder Scanner; Complete Time: 01:18 rn Administered Medications: 00:30 Drug: fentaNYL (PF) IVP 75 mcg IVP once Route: IVP; Site: right forearm; br2 01:00 Follow up: Response: No adverse reaction; Pain is unchanged, physician notified br2 00:56 CANCELLED (Duplicate Order): fentanyl (pf)50 mcg IVP once rn 01:08 Drug: fentaNYL (PF) IVP 25 mcg IVP once Route: IVP; Site: right forearm; br2 01:30 Follow up: Response: No adverse reaction; Pain is unchanged, physician notified br2 Disposition Summary: 09/01/24 01:26 Discharge Ordered Notes: Location: Home rn Problem: new rn Symptoms: have improved rn Condition: Stable rn Diagnosis - Encounter for other specified surgical aftercare rn Followup: rn - With: Private Physician - When: As needed - Reason: Recheck today's complaints, Re-evaluation by your physician Discharge Instructions: - Discharge Summary Sheet rn - Outpatient Surgery, Adult, Care After rn Forms: - Medication Reconciliation Form rn - Antibiotic alternative medicine practitioner - Prescription Opioid Use rn - Patient Portal Instructions rn - Leadership Thank You Letter rn Signatures: Constantine Hickman MD MD rn Riddle, Belinda, RN RN br2 Corrections: (The following items were deleted from the chart) 00:56 00:56 fentaNYL (PF) IVP 50 mcg IVP once ordered. rn rn
--- NOTE | 2024-09-01 01:26 | ER ---
Nurse's Notes [facility] Name: Maria Del Carmen Stokes Age: 38 yrs Sex: Female : 1985 Arrival Date: 08/31/2024 Time: 23:29 Bed 16 Private MD: Diagnosis: Encounter for other specified surgical aftercare Presentation: 09/01 00:32 Chief complaint: Patient states: S/P RECTAL PROLAPSE SURGERY TODAY. C/O RECTAL PAIN AND br2 UNABLE TO URINATE. 00:32 Method Of Arrival: Ambulatory br2 00:41 Coronavirus screen: Client denies travel out of the [place] in the last 14 days. Ebola br2 Screen: Patient denies exposure to infectious person. Initial Sepsis Screen: Does the patient meet any 2 criteria? RR > 20 per min. Does the patient have a suspected source of infection? No. Patient's initial sepsis screen is negative. Risk Assessment: Do you want to hurt yourself or someone else? Patient reports no desire to harm self or others. Onset of symptoms was August 31, 2024. 00:41 Acuity: WILLIS 3 br2 Triage Assessment: 00:43 General: Appears uncomfortable, Behavior is calm, cooperative. Pain: Complains of pain br2 in buttocks Pain does not radiate. Pain currently is 10 out of 10 on a pain scale. : Reports inability to void, since NOON. Historical: - Allergies: 00:43 PENICILLINS; br2 00:43 Levaquin; br2 00:43 Codeine; br2 - PMHx: 00:43 ADD/ADHD; br2 - PSHx: 00:43 Appendectomy; Cholecystectomy; hernia; Total abdominal hysterectomy; br2 - Immunization history:: Adult Immunizations not up to date. - Infectious Disease History:: Denies. - Family history:: not pertinent. - Social history:: Smoking status: Patient reports the use of cigarette tobacco products, VAPE. - Hospitalizations: : No recent hospitalization is reported. Screenin:[address] [facility] ED Fall Risk Assessment (Adult) History of falling in the last 3 months, br2 including since admission No falls in past 3 months (0 pts) Confusion or Disorientation No (0 pts) Intoxicated or Sedated No (0 pts) Impaired Gait No (0 pts) Mobility Assist Device Used No (0 pt) Altered Elimination No (0 pt) Score/Fall Risk Level 0 - 2 = Low Risk Oriented to surroundings. Abuse screen: Denies threats or abuse. Denies injuries from another. Nutritional screening: No deficits noted. Tuberculosis screening: No symptoms or risk factors identified. Assessment: 01:18 Reassessment: Patient and/or family updated on plan of care and expected duration. Pain br2 level reassessed. Patient is alert, oriented x 3, equal unlabored respirations, skin warm/dry/pink. BLADDER SCAN 102 ML. Vital Signs: 00:41 BP 118 / 92; Pulse 90; Resp 18; Temp 98.2(O); Pulse Ox 99% on R/A; Weight 50.8 kg; br2 Height 5 ft. 1 in. ; Pain 10/10; 01:21 BP 122 / 90; Pulse 73; Resp 18; Pulse Ox 100% ; Pain 10/10; br2 00:41 Body Mass Index 21.16 (50.80 kg, 154.94 cm) br2 00:41 Pain Scale: Adult br2 01:21 Pain Scale: Adult br2 ED Course: 08/31 23:31 Patient arrived in ED. jj6 23:36 Constantine Hickman MD is Attending Physician. rn 09/01 00:04 Josee Dong RN is Primary Nurse. br2 00:32 Patient has correct armband on for positive identification. Placed in gown. Bed in low br2 position. Call light in reach. Side rails up X 1. Provided Education on: PLAN OF CARE. 00:40 Inserted saline lock: 22 gauge in right forearm, using aseptic technique. Flushed with br2 10 mL NS. 00:43 Triage completed. br2 00:43 Arm band placed on. br2 01:40 No provider procedures requiring assistance completed. IV discontinued, intact, br2 bleeding controlled, No redness/swelling at site. Pressure dressing applied. Administered Medications: 00:30 Drug: fentaNYL (PF) IVP 75 mcg IVP once Route: IVP; Site: right forearm; br2 01:00 Follow up: Response: No adverse reaction; Pain is unchanged, physician notified br2 00:56 CANCELLED (Duplicate Order): fentanyl (pf)50 mcg IVP once rn 01:08 Drug: fentaNYL (PF) IVP 25 mcg IVP once Route: IVP; Site: right forearm; br2 01:30 Follow up: Response: No adverse reaction; Pain is unchanged, physician notified br2 Medication: 01:40 VIS not applicable for this client. br2 Outcome: 01:26 Discharge ordered by . rn 01:40 Discharged to home ambulatory, br2 01:40 Condition: good 01:40 Discharge instructions given to patient, Instructed on discharge instructions, follow up and referral plans. Demonstrated understanding of instructions, 01:42 Patient left the ED. br2 Signatures: Constantine Hickman MD MD rn Jeffries, Jennifer jj6 Riddle, Belinda, RN RN br2 Corrections: (The following items were deleted from the chart) 00:43 00:32 Chief complaint: Patient states: S/P RECTAL PROLAPSE SURGERY TODAY. C/O RECTAL br2 PAIN AND UNABLE TO URINATE br2
[2024-09-01 01:47] VITALS: TEMP 98.2
[2024-09-01 01:49] VITALS: BP 122/90; O2SAT 100
== END 2024-09-01 01:42 | disposition home or self-care (01) ==
LOC: ER 23:29
DX: Z48.89 Encounter for other specified surgical aftercare (principal); Z88.0 Allergy status to penicillin; Z88.1 Allergy status to other antibiotic agents; Z88.5 Allergy status to narcotic agent; F17.290 Nicotine dependence, other tobacco product, uncomplicated
CPT/HCPCS: 96374; 99284; J3010 ×2